=== PATIENT | male | born 1950 | race Caucasian/White ===

== ENCOUNTER 2021-06-11 15:09 | Inpatient (IN) | payer MEDICARE, OTHER, SELFPAY ==
[2021-06-11 15:10] VITALS: BP 142/79; PULSE 106; RESP 20; TEMP 36; O2SAT 97; BMI 59.5
[2021-06-11 15:21] VITALS: O2SAT 97
--- NOTE | 2021-06-11 15:24 | RAD_ITS ---
STUDY: X-RAY - RIGHT ELBOW REASON FOR EXAM: Male, 70 years old. trauma TECHNIQUE: 3 view(s) of the elbow. COMPARISON: None. FINDINGS: Irregularity of the posterior aspect of the olecranon of the ulna with small calcific opacities in the adjacent triceps tendon may represent an acute avulsion fracture or chronic tendinopathy. Normal radiocapitellar and ulnotrochlear articulations. The soft tissue structures are unremarkable. RAD/Elbow min 3 Views IMPRESSION: Suspected avulsion of the posterior olecranon at the insertion of triceps or chronic tendinopathy. Electronically Signed: Mir Choi MD at 16:29 EST ,
--- NOTE | 2021-06-11 15:24 | RAD_ITS ---
STUDY: X-RAY - RIGHT KNEE REASON FOR EXAM: Male, 70 years old. trauma TECHNIQUE: 2 view(s) of the knee. COMPARISON: None. FINDINGS: Normal visualized distal femur. Normal visualized proximal tibia and fibula. Normal proximal tibiofibular articulation. There is moderate degenerative arthrosis of the medial femorotibial compartment with moderate joint space narrowing. There is moderate degenerative arthrosis of the lateral femorotibial compartment with moderate joint space narrowing. There is moderate degenerative arthrosis of the patellofemoral articulation. The soft tissue structures are unremarkable. RAD/Knee 1 or 2 Views IMPRESSION: Degenerative arthrosis. Electronically Signed: Mir Choi MD at 16:28 EST ,
--- NOTE | 2021-06-11 15:28 | ED.VIS.FALL ---
HPI HPI - Fall History of Present Illness Chief Complaint: Fall Narrative Narrative: Patient presents after a mechanical fall, apparently this is his fifth fall this week. He was seen this morning at an outside emergency department after a fall this morning he fell again this afternoon. This morning he injured his elbow and apparently had a chest x-ray, he injured his knee and ankle today. He has no head injury no neck pain no loss of consciousness. Apparently he has been been more weak than normal and he has increased debility. [facility] Medical History Cellulitis DVT (deep venous thrombosis) HTN (hypertension) Obesity Home Medications furosemide 40 mg PO DAILY 06/11/21 [History Last Taken Unknown] latanoprost 1 drp EACH EYE QHS 06/11/21 [History Last Taken Unknown] potassium chloride 10 meq PO DAILY 06/11/21 [History Last Taken Unknown] warfarin 6 mg PO 06/11/21 [History Last Taken Unknown] Allergy/AdvReac Type Severity Reaction Status Date / Time No Known Allergies Allergy Verified 06/11/21 15:09 Social History Smoking Status: Never smoker ROS ROS ED ROS Narrative Past medical history: Reviewed, includes hypertension hypercholesterolemia and morbid obesity, as well as prior thromboembolic disease. Medications: Reviewed Social history: Noncontributory Review of systems: All systems negative except as indicated General: No fever. Generalized weakness as in HPI Eyes: No visual changes ENT: No upper airway congestion, normal voice Neck: No neck pain Cardiovascular: No chest pain Respiratory: No shortness of breath or cough Gastrointestinal: No abdominal pain, nausea vomiting or diarrhea Genitourinary: No dysuria Musculoskeletal: Right elbow right knee and right ankle pain, otherwise no other injury. Skin: No rash Neurological: No memory loss, confusion or any focal weakness Psych: No recent behavioral changes Hematologic: He is prone to easy bleeding secondary to his warfarin. EXAM Physical Exam Narrative Exam Narrative: Physical exam General: Patient appears uncomfortable. Does not appear acutely ill Head: Normocephalic, Atraumatic Eyes: Conjunctiva not pale ENT: Dry mucous membranes Neck: Supple, Nontender, No lymphadenopathy Cardiovascular: Regular rate, Regular rhythm, no murmur but the auscultation is difficult Respiratory: Coarse bilateral breath sounds Abdomen: Soft, Nontender, Back: Nontender, Normal Inspection. Negative for: CVA tenderness Extremities: Full range of motion of the right elbow knee and ankle with minimal pain. He has bilateral symmetric lower extremity edema. Skin: Normal color, No rash, chronic changes and scaling of the lower extremities secondary to chronic lymphedema, no evidence of infection Neurological: Alert, Normal Strength, Normal Sensation Psychological: Normal affect Const Vital Signs: 06/11/21 15:10 06/11/21 15:21 Temperature 96.8 F L Temperature Source Temporal Pulse Rate 106 H Respiratory Rate 20 H Respiratory Effort Short of Breath Labored Respiratory Depth Normal Respiratory Pattern Tachypnea Blood Pressure 142/79 H Blood Pressure Mean 100 Pulse Ox 97 97 Oxygen Delivery Method Room Air Room Air MDM MDM MDM Narrative Medical decision making narrative: Patient has an unremarkable work-up other than leukocytosis this morning his white count was 16 is 19, I will have a reason for this, I went back to reevaluate him I checked his groin, there is no evidence of scrotal or decub ulcers or any signs of infection, I rechecked his skin there is no cellulitis. Regardless at this time I did try to place him into a rehab facility but it is Monday evening and I could not he cannot go home due to his immobility. I will call for admission Lab Data Labs: Laboratory Results - last 24 hr 06/11/21 06/11/21 06/11/21 15:15 15:15 15:15 WBC 19.6 H RBC 5.37 Hgb 14.4 Hct 44.1 MCV 82.1 MCH 26.8 L MCHC 32.7 RDW Std Deviation 46.5 H RDW Coeff of Jory 15.6 H Plt Count 376 MPV 8.7 Immature Gran % (Auto) 1.200 H Neut % (Auto) 87.1 H Lymph % (Auto) 1.1 L [place] % (Auto) 6.4 Eos % (Auto) 4.0 Baso % (Auto) 0.2 Absolute Neuts (auto) 17.1 H Absolute Lymphs (auto) 0.21 L Nucleated RBC % 0 Differential Comment SEE COMMENT Platelet Estimate ADEQUATE Plt Morphology Comment LARGE RBC Morphology N CHROM Anisocytosis RARE PT 37.5 H INR 3.9 Sodium 131 L Potassium 4.0 Chloride 98 Carbon Dioxide 23.0 Anion Gap 10 BUN 40 H Creatinine 1.48 H Estim Creat Clear Calc 42.51 Est GFR (MDRD) Af Amer 61 Est GFR (MDRD) Non-Af 50 L BUN/Creatinine Ratio 27.0 H Glucose 129 H Calcium 10.4 H Total Bilirubin 1.10 H AST 62 H ALT 37 Alkaline Phosphatase 110 Total Creatine Kinase 729 H B-Natriuretic Peptide Total Protein 8.1 Albumin 2.3 L Globulin 5.8 H Albumin/Globulin Ratio 0.4 L Urine Color Urine Clarity Urine pH Ur Specific [place] Urine Protein Urine Glucose (UA) Urine Ketones Urine Occult Blood Urine Nitrite Urine Bilirubin Urine Urobilinogen Ur Leukocyte Esterase Urine RBC Urine WBC Ur Squamous Epith Cells Urine Bacteria Hyaline Casts Fine Granular Casts Urine Mucus 06/11/21 06/11/21 15:15 15:45 WBC RBC Hgb Hct MCV MCH MCHC RDW Std Deviation RDW Coeff of Jory Plt Count MPV Immature Gran % (Auto) Neut % (Auto) Lymph % (Auto) [place] % (Auto) Eos % (Auto) Baso % (Auto) Absolute Neuts (auto) Absolute Lymphs (auto) Nucleated RBC % Differential Comment Platelet Estimate Plt Morphology Comment RBC Morphology Anisocytosis PT INR Sodium Potassium Chloride Carbon Dioxide Anion Gap BUN Creatinine Estim Creat Clear Calc Est GFR (MDRD) Af Amer Est GFR (MDRD) Non-Af BUN/Creatinine Ratio Glucose Calcium Total Bilirubin AST ALT Alkaline Phosphatase Total Creatine Kinase B-Natriuretic Peptide 29.0 Total Protein Albumin Globulin Albumin/Globulin Ratio Urine Color Tania Urine Clarity Clear Urine pH 5.0 Ur Specific [place] 1.020 Urine Protein 30 H Urine Glucose (UA) Normal Urine Ketones 15 H Urine Occult Blood 150 H Urine Nitrite Negative Urine Bilirubin 1 H Urine Urobilinogen 4 H Ur Leukocyte Esterase 25 H Urine RBC 0 SEEN Urine WBC 0-5 SEEN Ur Squamous Epith Cells 0-5 SEEN Urine Bacteria 0 SEEN Hyaline Casts 0-5 SEEN Fine Granular Casts 0-5 SEEN Urine Mucus 0 SEEN Radiography Diagnostic Testing: Clinical Impression(s) from Imaging Studies Elbow X-Ray 06/11/21 15:24 IMPRESSION: Suspected avulsion of the posterior olecranon at the insertion of triceps or chronic tendinopathy. Electronically Signed: Mir Choi MD at 16:29 EST , Knee X-Ray 06/11/21 15:24 IMPRESSION: Degenerative arthrosis. Electronically Signed: Mir Choi MD at 16:28 EST , Ankle X-Ray 06/11/21 16:00 IMPRESSION: No acute fracture or dislocation. Electronically Signed: Mir Choi MD at 16:27 EST , Discharge Plan Triage Chief Complaint: Fall ED Provider: Armani Nelson Dx/Rx/DC Orders Clinical Impression: Fall, Debility Prescriptions: No Action warfarin 6 mg tablet 6 mg PO RF: 0 furosemide 40 mg tablet 40 mg PO DAILY RF: 0 latanoprost 0.005 % drops 1 drp EACH EYE QHS RF: 0 potassium chloride 10 mEq tablet extended release 10 meq PO DAILY RF: 0 Primary Care Provider: Maury Harley Referrals: Maury Harley DO [Primary Care Provider] - Disposition Disposition: Acute Care [facility]
[2021-06-11 15:33] LABS: Absolute Lymphocyte Count 0.21 X10^3/uL (0.83-4.51); Absolute Neutrophil Count 17.1 X10^3/uL (2.0-7.7); Basophil# 0.03 X10^3/uL; Basophil% 0.2 % (0-1); Eosinophil# 0.79 X10^3/uL; Hematocrit 44.1 % (40-54); Hemoglobin 14.4 g/dL (13.0-16.5); Lymphocyte # 0.21 X10^3/ul (0.83-4.51); Lymphocyte % 1.1 % (19-41); Mean Corp Hgb Conc 32.7 g/dL (32-36); Mean Corpuscular Hgb 26.8 pg (27.0-32.0); Mean Corpuscular Volume 82.1 fL (80-94); Mean Platelet Vol. 8.7 fl (6.2-12.0); Monocyte# 1.26 X10^3/uL; Monocyte% 6.4 % (0-10); NRBC Flagged by Analyzer 0 % (0-5); Neutrophil # 17.12 X10^3/uL (2.7-7.7); Neutrophil % 87.1 % (47-70); POSITIVE DIFFERENTIAL YES; POSITIVE MORPHOLOGY YES; Platelet Count 376 K/mm3 (150-450); RBC Distribution Width CV 15.6 % (11.6-14.6); RBC Distribution Width SD 46.5 fl (35.1-43.9); Red Blood Count 5.37 M/mm3 (4.6-6.2); White Blood Count 19.6 K/mm3 (4.4-11.0)
--- NOTE | 2021-06-11 16:00 | RAD_ITS ---
STUDY: X-RAY - RIGHT ANKLE REASON FOR EXAM: Male, 70 years old. trauma TECHNIQUE: 3 view(s) of the ankle. COMPARISON: None. FINDINGS: Normal visualized distal tibia and fibula. Chronic corticated avulsion fracture medial malleolus of the tibia. Normal tibiotalar articulation and ankle mortise. Normal visualized talus and calcaneus. Small posterior calcaneal enthesophyte. The visualized subtalar, talonavicular, calcaneocuboid and tarsal articulations are normal. The soft tissue structures are unremarkable. RAD/Ankle min 3 Views IMPRESSION: No acute fracture or dislocation. Electronically Signed: Mir Choi MD at 16:27 EST ,
[2021-06-11 16:03] LABS: Bacteria 0 SEEN /hpf (None Seen); Mucous, Urine 0 SEEN /hpf (<or=2+); Red Blood Cells-Urine 0 SEEN /hpf (0-5)
[2021-06-11 16:04] LABS: Differential Indicated SCAN CRITERIA MET
[2021-06-11 16:06] LABS: ALB/GLOB Ratio 0.4 RATIO (0.9-2.4); AST(SGOT) 62 U/L (15-37); Alanine Aminotransfer ALT/SGPT 37 U/L (16-61); Albumin, Serum 2.3 g/dL (3.2-5.0); Alkaline Phosphatase 110 U/L (45-117); Anion Gap 10 (5-15); BUN 40 mg/dL (7-18); CPK Total, Creatine Kinase 729 U/L (39-308); Calcium,Total 10.4 mg/dL (8.5-10.1); Chloride 98 mmol/L (98-107); Creatinine, Serum 1.48 mg/dL (0.70-1.30); EST Glomerular Filtration Rate 50 mL/min (>60); Est Glom Filt Rate - Afr Amer 61 mL/min (>60); Estimated Creatinine Clearance 42.51 ml/min; Globulin 5.8 g/dL (2.2-4.2); Glucose 129 mg/dL (74-106); International Normalized Ratio 3.9; Protein, Total 8.1 g/dL (6.4-8.2); Prothrombin Time (Protime)PT. 37.5 SECONDS (11.7-14.9); Sodium Level 131 mmol/L (136-145)
[2021-06-11 16:07] LABS: Anisocytosis RARE; Platelet Estimate ADEQUATE (ADEQ); Platelet Morphology LARGE; Red Cell Morphology N CHROM NORMAL (NORM C&C)
[2021-06-11] MEDS: 0.9% Normal Saline 1,000 ML 1000 ML IV (16:07)
--- NOTE | 2021-06-11 16:10 | CM.ED ---
Social Work Consult: snf placement Referral source: Dr. Nelson Met with patient and patient nieceAlison in room. Introduced self and clinical social worker role. Patient agreeable to this clinical social worker speaking openly with Alison present. Patient lives at home alone in [place]. Patient has been living on the first floor. Patient with stairs to enter the home with no handrails. Alison reports that patient has fallen 5 times in the past week and three times in the last 24 hours. Patient concerned about being able to take care of self as well. Patient believes that Alison is patient Health Care Power of Electrical Engineering Manager, but not sure about this. Patient was never and has no children per Alison. Patient is not wanting to return to home, I need to get myself taken care of. Nursing concerned of patient neglecting self. Alison reports that patient has not been bathing and the house is not in good shape. Patient agrees to need help and is agreeable to admission for possible [facility] placement as patient insurance requires a pre-cert. This clinical social worker provided patient with list of in-network facilities that are local to patient geographical region. Alison also assisting patient with choosing facility. This clinical social worker communicating that social work will continue to follow up with patient on placement options/plan. All parties voice understanding. Social Work to continue to follow. Marco A CHILD, RICKI
[2021-06-11 16:31] LABS: Color, Urine Amber (Yellow); Glucose, Dipstick Normal (Normal); Ketone-Dipstick 15 mg/dl (Negative); Leukocyte Esterase-Dipstick 25 /ul (Negative); Nitrite-Dipstick Negative (Negative); Occult Blood-Urine 150 /ul (Negative); Protein-Dipstick 30 mg/dl (Negative); Urine Bilirubin Dipstick 1 mg/dL (Negative); Urine Clarity Clear (Clear); Urine Urobilinogen 4 mg/dl (Normal)
[2021-06-11 16:41] LABS: Squamous Epithelial Cells - UA 0-5 SEEN /hpf (0-5); White Blood Cells 0-5 SEEN /hpf (0-5)
[2021-06-11 16:42] LABS: Hyaline Cast 0-5 SEEN /lpf (0-5)
[2021-06-11 16:43] LABS: Fine Granular Cast- Urine 0-5 SEEN /lpf (0-5)
[2021-06-11 17:00] VITALS: BP 151/64; PULSE 107; PULSE 108; RESP 28; TEMP 36; O2SAT 97
--- NOTE | 2021-06-11 17:30 | HP.PCM.HOS_ITS ---
HPI - General General Date of Admission: 06/11/21 Date of Service: 06/11/21 Chief Complaint: falls HPI Narrative MICHEAL LEÓN, is a 70 M who presents with falls. Patient has fallen 5 times over the past week. 1 time heparinize throwing some garbage over fence and lost his balance but has just been overall weaker and falling. Had fallen earlier today presented to outside emergency room and decided to go home. He returns again after another fall just unable to care for himself. Patient noted to have a white count of 19.6, INR of 3.9 and total creatinine kinase of 729. He did receive a liter of IV fluids in the emergency room. Patient has noted some seeping from his lower extremities and was diagnosed at the outside ER c ellulitis in his lower extremities. [facility] Medical History (Updated 06/11/21 @ 17:[address] Thang Basilio DO) 2019-nCoV vaccination declined Cellulitis DVT (deep venous thrombosis) HTN (hypertension) Obesity Home Medications furosemide 40 mg PO DAILY 06/11/21 [History Last Taken Unknown] latanoprost 1 drp EACH EYE QHS 06/11/21 [History Last Taken 06/09/21] potassium chloride 10 meq PO DAILY 06/11/21 [History Last Taken 06/09/21] warfarin 5 mg PO DAILY 06/11/21 [History Last Taken 06/10/21] Allergy/AdvReac Type Severity Reaction Status Date / Time No Known Allergies Allergy Verified 06/11/21 15:09 Social History Smoking Status: Never smoker ROS ROS Narrative Seeping and swelling in lower extremities. Has had a history of a DVT. All review of systems were negative except as mentioned above in the history of present illness and the other review of systems. Vital Signs Vital Signs Vital Signs: 06/11/21 15:10 06/11/21 15:21 06/11/21 17:00 Temperature 36.0 C L 36.0 C L Temperature Source Temporal Temporal Pulse Rate 106 H 108 H Respiratory Rate 20 H 28 H Respiratory Effort Short of Breath Labored Respiratory Depth Normal Respiratory Pattern Tachypnea Blood Pressure 142/79 H 151/64 H Blood Pressure Mean 100 93 Pulse Ox 97 97 97 Oxygen Delivery Method Room Air Room Air Room Air Weight Weight: 167.5 kg Body Mass Index (BMI) 59.5 Physical Exam Const alert Constitutional Narrative: Morbidly obese General Appearance: cooperative HEENT normocephalic and head/scalp atraumatic Neck no lymphadenopathy Neck Narrative: No thyromegaly Resp normal respiratory effort, no retractions, no use of accessory muscles and clear to auscultation bilaterally Cardio regular rate, regular rhythm, S1 normal heart sound and S2 normal heart sound GI normal to inspection, nondistended, normoactive bowel sounds, soft to palpation, non-tender and non-distended Extremity Extremity Narrative: Venous stasis changes to the lower extremities. Right lower extremity is larger than his left. Skin Skin Narrative: Venous stasis changes in lower extremities. Neuro Sensorium / Orientation: awake and alert Psych Psych Narrative: Flat affect Results Lab / Micro Data Attestation: I reviewed the patient's lab results. Result Diagrams: 06/11/21 15:15 06/11/21 15:15 Labs: Laboratory Results - last 24 hr 06/11/21 15:15: WBC 19.6 H, RBC 5.37, Hgb 14.4, Hct 44.1, MCV 82.1, MCH 26.8 L, MCHC 32.7, RDW Std Deviation 46.5 H, RDW Coeff of Jory 15.6 H, Plt Count 376, MPV 8.7, Immature Gran % (Auto) 1.200 H, Neut % (Auto) 87.1 H, Lymph % (Auto) 1.1 L, [place] % (Auto) 6.4, Eos % (Auto) 4.0, Baso % (Auto) 0.2, Absolute Neuts (auto) 17.1 H, Absolute Lymphs (auto) 0.21 L, Nucleated RBC % 0, Differential Comment SEE COMMENT, Platelet Estimate ADEQUATE, Plt Morphology Comment LARGE, RBC Morphology N CHROM, Anisocytosis RARE 06/11/21 15:15: PT 37.5 H, INR 3.9 06/11/21 15:15: Sodium 131 L, Potassium 4.0, Chloride 98, Carbon Dioxide 23.0, Anion Gap 10, BUN 40 H, Creatinine 1.48 H, Estim Creat Clear Calc 42.51, Est GFR (MDRD) Af Amer 61, Est GFR (MDRD) Non-Af 50 L, BUN/Creatinine Ratio 27.0 H, Glucose 129 H, Calcium 10.4 H, Total Bilirubin 1.10 H, AST 62 H, ALT 37, Alkaline Phosphatase 110, Total Creatine Kinase 729 H, Total Protein 8.1, Albumin 2.3 L, Globulin 5.8 H, Albumin/Globulin Ratio 0.4 L 06/11/21 15:15: B-Natriuretic Peptide 29.0 06/11/21 15:45: Urine Color Tania, Urine Clarity Clear, Urine pH 5.0, Ur Specific [place] 1.020, Urine Protein 30 H, Urine Glucose (UA) Normal, Urine Ketones 15 H, Urine Occult Blood 150 H, Urine Nitrite Negative, Urine Bilirubin 1 H, Urine Urobilinogen 4 H, Ur Leukocyte Esterase 25 H, Urine RBC 0 SEEN, Urine WBC 0-5 SEEN, Ur Squamous Epith Cells 0-5 SEEN, Urine Bacteria 0 SEEN, Hyaline Casts 0-5 SEEN, Fine Granular Casts 0-5 SEEN, Urine Mucus 0 SEEN Radiology Impression Elbow X-Ray 06/11/21 15:24 IMPRESSION: Suspected avulsion of the posterior olecranon at the insertion of triceps or chronic tendinopathy. Electronically Signed: Mir Choi MD at 16:29 EST Reading Location ID and State: [id number] Tel , Service support , Knee X-Ray 06/11/21 15:24 IMPRESSION: Degenerative arthrosis. Electronically Signed: Mir Choi MD at 16:28 EST Reading Location ID and State: [id number] Tel , Service support , Ankle X-Ray 06/11/21 16:00 IMPRESSION: No acute fracture or dislocation. Electronically Signed: Mir Choi MD at 16:27 EST Reading Location ID and State: [id number] / [facility] Tel , Service support , Assessment & Plan Assessment/Plan (1) Fall: QUALIFIERS: Encounter type: initial encounter Qualified Code(s): W19.XXXA - Unspecified fall, initial encounter (2) Leukocytosis: QUALIFIERS: Leukocytosis type: unspecified Qualified Code(s): D72.829 - Elevated white blood cell count, unspecified PLAN: 1. Fall/debility/failure to thrive No obvious etiology that I can appreciate medically at this time is contributing to this Therefore, patient will be brought under observation status and have physical and occupational therapy evaluate him. Discussed with he and his niece, who is at bedside. He is unsafe to be at home by himself which she reluctantly agrees to and plan to be for [facility] facility upon discharge. No if there is found to be medical reason for him to be hospitalized, such as an infection then his status could be potentially changed over to admission. 2. Leukocytosis Unclear significance he is not manifesting any signs or symptoms of infection at this time. He was informed that he had cellulitis at outside emergency room but I see any evidence of any cellulitis and would not treat him for such. He does have lower extremity edema with lymphedema changes but nothing indicative of cellulitis at this time. 3. Coagulopathy INR 3.9 Secondary to warfarin Hold warfarin for now 4. Lower extremity edema We will increase his furosemide from 40 mg once daily to twice daily PO Check a 2D echocardiogram. Concern the patient does have pulmonary hypertension due to potential untreated sleep apnea. Did recommend he get outpatient follow- up with pulmonology to get a polysomnogram. Though would be very concerned about compliance for this individual. 5. Morbid obesity BMI 60 Complicates overall care and recovery Dietitian to evaluate 6. History of DVT Currently anticoagulated but INR is too high to continue with warfarin for now 7. VTE prophylaxis: Not indicated as he is already anticoagulated 8. COVID-19 vaccination status: Patient states that he has not had Covid nor has he been vaccinated. When asked him about his COVID-19 vaccination status he given also subtle clue that he was done talking with that subject soon as I brought up. I did recommend given his morbid obesity and medical comorbidities that he get vaccinated. 9. CODE STATUS: Addressed with the patient. He wishes to be full CODE STATUS. Discussed with the patient's niece at bedside. Charges/Coding Visit Charges OBSV E&M: 22047 Initial observation care L3
[2021-06-11 17:45] VITALS: BMI 57.8
--- NOTE | 2021-06-11 18:20 | ECHOCS_ITS ---
Reason For Study: CHF Procedure This was a 2D Doppler, Color Flow transthoracic echocardiogram. Contrast injection was performed. The study was technically difficult. Exam performed portable in patient room. Left Ventricle Normal LV size. Left ventricular systolic function is hyperdynamic. The estimated ejection fraction is 65 %. Stage 1 diastolic dysfunction. No regional wall motion abnormalities noted. Right Ventricle Normal RV size. Normal systolic function. Atria Normal left atrium. Normal right atrium. Mitral Valve Mitral valve not well visualized. Tricuspid Valve The tricuspid valve is not well visualized. Aortic Valve The aortic valve is not well visualized. Great Vessels Normal aortic root. Pericardium/Pleural No pericardial effusion. Medication Diluted definity 3ml given slow IV push to enhance endocardial definition. MMode/2D Measurements & Calculations LVIDd: 4.5 cm IVSd: 1.6 cm Ao root diam: 3.7 cm LVIDs: 3.3 cm LVPWd: 1.3 cm RVDd: 3.4 cm FS: 26.5 % LAV(MOD-bp): 33.4 ml LA A4 area: 14.9 cm2 RA A4 area: 13.1 cm2 LAV(MOD-bp) Indexed: 12.7 ml/m2 LAV(MOD-sp2): 33.7 ml LAV(MOD-sp4): 33.6 ml Doppler Measurements & Calculations MV E max don: 54.4 cm/sec Lat Peak E' Don: 10.6 cm/sec Med Peak E' Don: 10.6 cm/sec MV A max don: 95.1 cm/sec E/E' lat: 5.1 E/E' med: 5.1 MV E/A: 0.57 Ao V2 max: 199.3 cm/sec LV V1 max: 149.8 cm/sec PA V2 max: 115.5 cm/sec Ao max P.9 mmHg LV V1 max P.0 mmHg Ao V2 mean: 149.2 cm/sec Ao mean P.6 mmHg Ao V2 VTI: 28.0 cm ECHO/Echo Complete W/ Contrast Interpretation Summary Normal LV size. Left ventricular systolic function is hyperdynamic. The estimated ejection fraction is 65 %. Stage 1 diastolic dysfunction. Contrast injection was performed. The study was technically limited. The study was technically difficult. Ordering Physician: Thang Basilio Referring Physician: Maury Harley Performed By: Bobbi Whatley, ARINCS, RVT
[2021-06-11 18:31] VITALS: BP 112/77; PULSE 110; RESP 18; TEMP 36.2; O2SAT 98
[2021-06-11] MEDS: Furosemide 40 MG Tablet PO (19:07)
[2021-06-11 19:50] LABS: Troponin-I HS 21 pg/mL (3.0-78.0)
[2021-06-11 21:19] VITALS: BP 120/62; PULSE 108; RESP 24; TEMP 37.3; O2SAT 95
[2021-06-11] MEDS: Latanoprost 0.005% 1 Bottle 1 DRP EACH EYE (21:51)
[2021-06-11] MEDS: 0.9% Saline Lock 10 ML Syringe IV (21:51)
[2021-06-12 04:45] VITALS: BP 115/73; PULSE 106; RESP 24; TEMP 36.6; O2SAT 95
[2021-06-12 05:33] LABS: Absolute Lymphocyte Count 0.29 X10^3/uL (0.83-4.51); Basophil# 0.01 X10^3/uL; Basophil% 0.1 % (0-1); Eosinophil# 0.01 X10^3/uL; Eosinophils% 0.1 % (0-5); Hematocrit 39.1 % (40-54); Hemoglobin 13.1 g/dL (13.0-16.5); Lymphocyte # 0.29 X10^3/ul (0.83-4.51); Lymphocyte % 1.9 % (19-41); Mean Corp Hgb Conc 33.5 g/dL (32-36); Mean Corpuscular Volume 80.5 fL (80-94); Mean Platelet Vol. 8.6 fl (6.2-12.0); Monocyte# 1.56 X10^3/uL; Monocyte% 10.4 % (0-10); NRBC Flagged by Analyzer 0 % (0-5); Neutrophil # 12.97 X10^3/uL (2.7-7.7); Neutrophil % 86.8 % (47-70); POSITIVE DIFFERENTIAL YES; Platelet Count 352 K/mm3 (150-450); RBC Distribution Width CV 15.6 % (11.6-14.6); RBC Distribution Width SD 45.1 fl (35.1-43.9); Red Blood Count 4.86 M/mm3 (4.6-6.2); White Blood Count 14.9 K/mm3 (4.4-11.0)
[2021-06-12 05:42] LABS: Differential Indicated SCAN CRITERIA MET
[2021-06-12 05:52] LABS: Prothrombin Time (Protime)PT. 43.7 SECONDS (11.7-14.9)
[2021-06-12 05:55] LABS: International Normalized Ratio 4.7
[2021-06-12 06:09] LABS: Thyroid Stim Hormone (TSH) 2.05 uIU/mL (0.358-3.74)
[2021-06-12 06:56] LABS: Differential Comment SCANNED
[2021-06-12] MEDS: 0.9% Saline Lock 10 ML Syringe IV ×2 (08:41→19:57)
[2021-06-12] MEDS: Potassium Chloride Oral Tablet 10 MEQ PO (08:44)
--- NOTE | 2021-06-12 09:24 | PCM.RX.CS ---
Consult Pharmacy has been consulted to manage selected antiobiotic: Vancomycin Type of Consult: New start Suspected Infection: Bacteremia Labs: Sodium 131 mmol/L (136-145) L 06/11/21 15:15 Potassium 4.0 mmol/L (3.5-5.1) 06/11/21 15:15 Chloride 98 mmol/L (98-107) 06/11/21 15:15 Carbon Dioxide 23.0 mmol/L (21.0-32.0) 06/11/21 15:15 Anion Gap 10 (5-15) 06/11/21 15:15 BUN 40 mg/dL (7-18) H 06/11/21 15:15 Creatinine 1.48 mg/dL (0.70-1.30) H 06/11/21 15:15 Est GFR (MDRD) Af Amer 61 mL/min (>60) 06/11/21 15:15 Est GFR (MDRD) Non-Af 50 mL/min (>60) L 06/11/21 15:15 BUN/Creatinine Ratio 27.0 RATIO (10-20) H 06/11/21 15:15 Glucose 129 mg/dL (74-106) H 06/11/21 15:15 Microbiology: Microbiology 06/11/21 16:54 Blood Culture (Wb) - Anticubital Right Blood Culture - Preliminary 06/11/21 16:50 Blood Culture (Wb) - Anticubital Left Blood Culture - Preliminary Goal Trough: 15-20 mcg/mL Pharmacy Plan for Drug Dosing: NEW START IV VANCOMYCIN Consulting Physician: Dr. Basilio Indication: Bacteremia Goal Trough: 15-20 SrCr: 1.48 CrCl: 69 mL/min (using AdjBW of 103.4kg) Comments: Loading dose 2g IV x1 ordered and administered 06/12/21 @0841 Vancomcyin Dose: 1500mg IV Q12hr to start 06/12/21 @ 2000 Pending Level: 06/13/21 @1930, prior to 4th total dose per protocol Pharmacy Service will continue to monitor and adjust dosing as required.
[2021-06-12 09:26] VITALS: BP 118/77; PULSE 103; RESP 18; TEMP 37.5; O2SAT 95
[2021-06-12] MEDS: Nystatin Powder 15gm Bottle 1 APPLIC TOPICAL ×2 (09:38→20:03)
[2021-06-12] MEDS: Furosemide 40 MG Tablet PO ×2 (09:38→18:23)
--- NOTE | 2021-06-12 11:51 | PN.HOSP_ITS ---
Subjective Subjective No new events overnight. Objective Data Objective Data Vital Signs: Vital Signs Temp Pulse Resp BP Pulse Ox 37.5 C H 103 H 18 118/77 95 06/12/21 09:26 06/12/21 09:26 06/12/21 09:26 06/12/21 09:26 06/12/21 09:26 Oxygen Delivery Method Room Air Weight: 162.7 kg Body Mass Index (BMI) 57.8 Intake & Output: Intake and Output for Last 24 Hours 06/10/21 06/11/21 06/12/21 23:59 23:59 23:59 Intake Total 1000 / 1000 300 / 300 Output Total 325 / 325 Balance 675 / 675 300 / 300 Lab / Micro Data Result Diagrams: 06/12/21 05:04 06/11/21 15:15 Labs: Laboratory Results - last 24 hr 06/11/21 15:15: WBC 19.6 H, RBC 5.37, Hgb 14.4, Hct 44.1, MCV 82.1, MCH 26.8 L, MCHC 32.7, RDW Std Deviation 46.5 H, RDW Coeff of Jory 15.6 H, Plt Count 376, MPV 8.7, Immature Gran % (Auto) 1.200 H, Neut % (Auto) 87.1 H, Lymph % (Auto) 1.1 L, [place] % (Auto) 6.4, Eos % (Auto) 4.0, Baso % (Auto) 0.2, Absolute Neuts (auto) 17.1 H, Absolute Lymphs (auto) 0.21 L, Nucleated RBC % 0, Differential Comment SEE COMMENT, Platelet Estimate ADEQUATE, Plt Morphology Comment LARGE, RBC Morphology N CHROM, Anisocytosis RARE 06/11/21 15:15: PT 37.5 H, INR 3.9 06/11/21 15:15: Sodium 131 L, Potassium 4.0, Chloride 98, Carbon Dioxide 23.0, Anion Gap 10, BUN 40 H, Creatinine 1.48 H, Estim Creat Clear Calc 42.51, Est GFR (MDRD) Af Amer 61, Est GFR (MDRD) Non-Af 50 L, BUN/Creatinine Ratio 27.0 H, Glucose 129 H, Calcium 10.4 H, Total Bilirubin 1.10 H, AST 62 H, ALT 37, Al kaline Phosphatase 110, Total Creatine Kinase 729 H, Total Protein 8.1, Albumin 2.3 L, Globulin 5.8 H, Albumin/Globulin Ratio 0.4 L 06/11/21 15:15: B-Natriuretic Peptide 29.0 06/11/21 15:15: Troponin I High Sens 21 06/11/21 15:45: Urine Color Tania, Urine Clarity Clear, Urine pH 5.0, Ur Specific [place] 1.020, Urine Protein 30 H, Urine Glucose (UA) Normal, Urine Ketones 15 H, Urine Occult Blood 150 H, Urine Nitrite Negative, Urine Bilirubin 1 H, Urine Urobilinogen 4 H, Ur Leukocyte Esterase 25 H, Urine RBC 0 SEEN, Urine WBC 0-5 SEEN, Ur Squamous Epith Cells 0-5 SEEN, Urine Bacteria 0 SEEN, Hyaline Casts 0-5 SEEN, Fine Granular Casts 0-5 SEEN, Urine Mucus 0 SEEN 06/12/21 05:04: WBC 14.9 H, RBC 4.86, Hgb 13.1, Hct 39.1 L, MCV 80.5, MCH 27.0, MCHC 33.5, RDW Std Deviation 45.1 H, RDW Coeff of Jory 15.6 H, Plt Count 352, MPV 8.6, Immature Gran % (Auto) 0.700, Neut % (Auto) 86.8 H, Lymph % (Auto) 1.9 L, [place] % (Auto) 10.4 H, Eos % (Auto) 0.1, Baso % (Auto) 0.1, Absolute Neuts (auto) 13.0 H, Absolute Lymphs (auto) 0.29 L, Nucleated RBC % 0, Differential Comment S CANNED, Diff Path Review August06/12/21 05:04: PT 43.7 H, INR 4.7 H* 06/12/21 05:04: TSH 2.05 Micro: Microbiology 06/11/21 16:50 Blood Culture (Wb) - Anticubital Left Bacteria Detection (PCR) - Final Staphylococcus aureus 06/11/21 16:50 Blood Culture (Wb) - Anticubital Left Blood Culture - Preliminary 06/11/21 16:54 Blood Culture (Wb) - Anticubital Right Blood Culture - Preliminary Radiography Diagnostic Testing: Radiology Impression Elbow X-Ray 06/11/21 15:24 IMPRESSION: Suspected avulsion of the posterior olecranon at the insertion of triceps or chronic tendinopathy. Electronically Signed: Mir Choi MD at 16:29 EST Reading Location ID and State: [id number] / [employer] Tel , Service support , Knee X-Ray 06/11/21 15:24 IMPRESSION: Degenerative arthrosis. Electronically Signed: Mir Choi MD at 16:28 EST Reading Location ID and State: [id number] / [employer] Tel , Service support , Ankle X-Ray 06/11/21 16:00 IMPRESSION: No acute fracture or dislocation. Electronically Signed: Mir Choi MD at 16:27 EST Reading Location ID and State: [id number] / [employer] Tel , Service support , Physical Exam Const alert and no apparent distress Resp normal respiratory effort, no retractions, no use of accessory muscles and clear to auscultation bilaterally Cardio regular rate, regular rhythm, S1 normal heart sound and S2 normal heart sound GI normal to inspection, nondistended, normoactive bowel sounds, soft to palpation, non-tender and non-distended Extremity Extremity Narrative: lymphedema changes in LE. increased area of induration on posterior right calf. Neuro Sensorium / Orientation: awake and alert Assessment & Plan Assessment/Plan (1) Fall: QUALIFIERS: Encounter type: initial encounter Qualified Code(s): W19.XXXA - Unspecified fall, initial encounter (2) Leukocytosis: QUALIFIERS: Leukocytosis type: unspecified Qualified Code(s): D 72.829 - Elevated white blood cell count, unspecified (3) Bacteremia: PLAN: 1. Bacteremia S. aureus start vancomycin repeat BCx consider TTE if persists may be related with possible cellulitis of LE. 2. Fall/debility/failure to thrive No obvious etiology that I can appreciate medically at this time is contributing to this Therefore, patient will be brought under observation status and have physical and occupational therapy evaluate him. Discussed with he and his niece, who is at bedside. He is unsafe to be at home by himself which she reluctantly agrees to and plan to be for [facility]dc facility upon discharge. No if there is found to be medical reason for him to be hospitalized, such as an infection then his status could be potentially changed over to admission. 3. Leukocytosis Unclear significance he is not manifesting any signs or symptoms of infection at this time. He was informed that he had cellulitis at outside emergency room but I see any evidence of any cellulitis and would not treat him for such. He does have lower extremity edema with lymphedema changes but nothing indicative of cellulitis at this time. 4. Coagulopathy INR 4.7 Secondary to warfarin Hold warfarin for now 5. Lower extremity edema We will increase his furosemide from 40 mg once daily to twice daily PO Check a 2D echocardiogram. Concern the patient does have pulmonary hypertension due to potential untreated sleep apnea. Did recommend he get outpatient follow- up with pulmonology to get a polysomnogram. Though would be very concerned about compliance for this individual. 6. Morbid obesity BMI 60 Complicates overall care and recovery Dietitian to evaluate 7. History of DVT Currently anticoagulated but INR is too high to continue with warfarin for now 8. VTE prophylaxis: Not indicated as he is already anticoagulated 9. COVID-19 vaccination status: Patient states that he has not had Covid nor has he been vaccinated. When asked him about his COVID-19 vaccination status he given also subtle clue that he was done talking with that subject soon as I brought up. I did recommend given his morbid obesity and medical comorbidities that he get vaccinated. 10. CODE STATUS: Addressed with the patient. He wishes to be full CODE STATUS. Charges/Coding Visit Charges Inpatient E&M: 78059 Subs Hosp L2
[2021-06-12 15:04] VITALS: BP 126/77; PULSE 101; RESP 18; TEMP 37.3; O2SAT 94
[2021-06-12] MEDS: Latanoprost 0.005% 1 Bottle 1 DRP EACH EYE (20:04)
[2021-06-12 20:06] VITALS: BP 100/72; PULSE 110; RESP 20; TEMP 37.1; O2SAT 94
[2021-06-13 03:24] VITALS: BP 126/75; PULSE 102; RESP 24; TEMP 37.6; O2SAT 94
[2021-06-13] MEDS: 0.9% Saline Lock 10 ML Syringe IV ×3 (03:40→19:41)
[2021-06-13 05:58] LABS: Absolute Lymphocyte Count 0.45 X10^3/uL (0.83-4.51); Absolute Neutrophil Count 12.2 X10^3/uL (2.0-7.7); Basophil# 0.02 X10^3/uL; Basophil% 0.1 % (0-1); Eosinophil# 0.01 X10^3/uL; Eosinophils% 0.1 % (0-5); Hematocrit 38.7 % (40-54); Hemoglobin 12.7 g/dL (13.0-16.5); Lymphocyte # 0.45 X10^3/ul (0.83-4.51); Lymphocyte % 3.1 % (19-41); Mean Corp Hgb Conc 32.8 g/dL (32-36); Mean Corpuscular Hgb 26.7 pg (27.0-32.0); Mean Corpuscular Volume 81.3 fL (80-94); Monocyte# 1.72 X10^3/uL; Monocyte% 11.8 % (0-10); NRBC Flagged by Analyzer 0 % (0-5); Neutrophil # 12.16 X10^3/uL (2.7-7.7); Neutrophil % 83.7 % (47-70); POSITIVE DIFFERENTIAL YES; Platelet Count 351 K/mm3 (150-450); RBC Distribution Width CV 15.9 % (11.6-14.6); RBC Distribution Width SD 47.4 fl (35.1-43.9); Red Blood Count 4.76 M/mm3 (4.6-6.2); White Blood Count 14.5 K/mm3 (4.4-11.0)
[2021-06-13 06:00] LABS: Differential Indicated SCAN CRITERIA MET
[2021-06-13 06:06] LABS: International Normalized Ratio 3.3; Prothrombin Time (Protime)PT. 32.5 SECONDS (11.7-14.9)
[2021-06-13 06:22] LABS: Anion Gap 6 (5-15); BUN 33 mg/dL (7-18); BUN/Creat Ratio 28.4 RATIO (10-20); Calcium,Total 9.9 mg/dL (8.5-10.1); Chloride 104 mmol/L (98-107); Creatinine, Serum 1.16 mg/dL (0.70-1.30); EST Glomerular Filtration Rate 66 mL/min (>60); Est Glom Filt Rate - Afr Amer 80 mL/min (>60); Estimated Creatinine Clearance 54.24 ml/min; Glucose 168 mg/dL (74-106); Potassium 3.9 mmol/L (3.5-5.1); Sodium Level 136 mmol/L (136-145)
[2021-06-13 07:30] VITALS: BP 129/80; PULSE 110; RESP 18; TEMP 37.3; O2SAT 93
[2021-06-13] MEDS: Potassium Chloride Oral Tablet 10 MEQ PO (07:47)
[2021-06-13] MEDS: Nystatin Powder 15gm Bottle 1 APPLIC TOPICAL ×2 (07:47→19:39)
--- NOTE | 2021-06-13 09:39 | PN.HOSP_ITS ---
Subjective Subjective Feeling ok. Objective Data Objective Data Vital Signs: Vital Signs Temp Pulse Resp BP Pulse Ox 37.3 C 110 H 18 129/80 H 93 06/13/21 07:30 06/13/21 07:30 06/13/21 07:30 06/13/21 07:30 06/13/21 07:30 Oxygen Delivery Method Room Air Weight: 162.5 kg Body Mass Index (BMI) 57.8 Intake & Output: Intake and Output for Last 24 Hours 06/11/21 06/12/21 06/13/21 23:59 23:59 23:59 Intake Total 1000 / 1000 1370 / 1370 Output Total 325 / 325 625 / 625 Balance 675 / 675 1370 / 1070 -625 / -625 Lab / Micro Data Result Diagrams: 06/13/21 05:15 06/13/21 05:15 Labs: Laboratory Results - last 24 hr 06/13/21 05:15: WBC 14.5 H, RBC 4.76, Hgb 12.7 L, Hct 38.7 L, MCV 81.3, MCH 26.7 L, MCHC 32.8, RDW Std Deviation 47.4 H, RDW Coeff of Jory 15.9 H, Plt Count 351, MPV 9.0, Immature Gran % (Auto) 1.200 H, Neut % (Auto) 83.7 H, Lymph % (Auto) 3.1 L, [place] % (Auto) 11.8 H, Eos % (Auto) 0.1, Baso % (Auto) 0.1, Absolute Neuts (auto) 12.2 H, Absolute Lymphs (auto) 0.45 L, Nucleated RBC % 0, Diff Path Review August06/13/21 05:15: PT 32.5 H, INR 3.3 06/13/21 05:15: Sodium 136, Potassium 3.9, Chloride 104, Carbon Dioxide 26.0, Anion Gap 6, BUN 33 H, Creatinine 1.16, Estim Creat Clear Calc 54.24, Est GFR (MDRD) Af Amer 80, Est GFR (MDRD) Non-Af 66, BUN/Creatinine Ratio 28.4 H, Glucose 168 H, Calcium 9.9 Micro: Microbiology 06/11/21 16:54 Blood Culture (Wb) - Anticubital Right Blood Culture - Preliminary Staphylococcus aureus 06/11/21 16:50 Blood Culture (Wb) - Anticubital Left Bacteria Detection (PCR) - Final Staphylococcus aureus 06/11/21 16:50 Blood Culture (Wb) - Anticubital Left Blood Culture - Preliminary Staphylococcus aureus 06/12/21 07:47 Blood Culture (Wb) - Left Hand Blood Culture - Preliminary 06/12/21 07:47 Blood Culture (Wb) - Right Hand Bacteria Detection (PCR) - Final Staphylococcus aureus 06/12/21 07:47 Blood Culture (Wb) - Right Hand Blood Culture - Preliminary Radiography Diagnostic Testing: Radiology Impression Echocardiogram 06/11/21 18:20 Interpretation Summary Normal LV size. Left ventricular systolic function is hyperdynamic. The estimated ejection fraction is 65 %. Stage 1 diastolic dysfunction. Contrast injection was performed. The study was technically limited. The study was technically difficult. Ordering Physician: Thang Basilio Referring Physician: Maury Harley Performed By: Bobbi Whatley, SHANNON, RVT Physical Exam Const alert and no apparent distress Resp normal respiratory effort, no retractions, no use of accessory muscles and clear to auscultation bilaterally Cardio regular rate, regular rhythm, S1 normal heart sound and S2 normal heart sound GI normal to inspection, nondistended, normoactive bowel sounds, soft to palpation, non-tender and non-distended Extremity normal to inspection Skin Skin Narrative: erythema on posterior right leg. Neuro Sensorium / Orientation: awake and alert Assessment & Plan Assessment/Plan (1) Fall: QUALIFIERS: Encounter type: initial encounter Qualified Code(s): W19.XXXA - Unspecified fall, initial encounter (2) Leukocytosis: QUALIFIERS: Leukocytosis type: unspecified Qualified Code(s): D72.829 - Elevated white blood cell count, unspecified (3) Bacteremia: PLAN: 1. Bacteremia S. aureus start vancomycin repeat BCx consider TTE if persists may be related with possible cellulitis of LE. 2. Fall/debility/failure to thrive No obvious etiology that I can appreciate medically at this time is contributing to this Therefore, patient will be brought under observation status and have physical and occupational therapy evaluate him. Discussed with he and his niece, who is at bedside. He is unsafe to be at home by himself which she reluctantly agrees to and plan to be for care home facility upon discharge. No if there is found to be medical reason for him to be hospitalized, such as an infection then his status could be potentially changed over to admission. 3. Leukocytosis Unclear significance he is not manifesting any signs or symptoms of infection at this time. He was informed that he had cellulitis at outside emergency room but I see any evidence of any cellulitis and would not treat him for such. He does have lower extremity edema with lymphedema changes but nothing indicative of cellulitis at this time. 4. Coagulopathy INR 4.7 Secondary to warfarin Hold warfarin for now 5. Lower extremity edema We will increase his furosemide from 40 mg once daily to twice daily PO Check a 2D echocardiogram. Concern the patient does have pulmonary hypertension due to potential untreated sleep apnea. Did recommend he get outpatient follow- up with pulmonology to get a polysomnogram. Though would be very concerned about compliance for this individual. 6. Morbid obesity BMI 60 Complicates overall care and recovery Dietitian to evaluate 7. History of DVT Currently anticoagulated but INR is too high to continue with warfarin for now 8. VTE prophylaxis: Not indicated as he is already anticoagulated 9. COVID-19 vaccination status: Patient states that he has not had Covid nor has he been vaccinated. When asked him about his COVID-19 vaccination status he given also subtle clue that he was done talking with that subject soon as I brought up. I did recommend given his morbid obesity and medical comorbidities that he get vaccinated. 10. CODE STATUS: Addressed with the patient. He wishes to be full CODE STATUS. Charges/Coding Visit Charges Inpatient E&M: 05245 Subs Hosp L2
[2021-06-13] MEDS: Furosemide 40 MG Tablet PO ×2 (09:53→17:46)
[2021-06-13 14:07] VITALS: BP 117/73; PULSE 107; RESP 18; TEMP 37.4; O2SAT 94
[2021-06-13] MEDS: Latanoprost 0.005% 1 Bottle 1 DRP EACH EYE (19:41)
[2021-06-13 19:47] VITALS: O2SAT 88
[2021-06-13 20:05] LABS: Vancomycin, Trough Level 13.7 ug/mL (5.0-15.0)
[2021-06-13 20:10] VITALS: BP 122/79; PULSE 106; RESP 20; TEMP 37.3; O2SAT 94
--- NOTE | 2021-06-13 21:18 | PCM.RX.CS ---
Consult Pharmacy has been consulted to manage selected antiobiotic: Vancomycin Type of Consult: Follow-up Suspected Infection: Bacteremia Prior Doses of Antibiotics Received/Current Regimen: Medications Vancomycin HCl 2,000 mg/ (Sodium Chloride) 540 mls @ 250 mls/hr IV Q12H JUSTINE Vancomycin HCl 1,500 mg/ (Sodium Chloride) 530 mls @ 250 mls/hr IV Q12H JUSTINE Stop: 06/13/21 22:30 Last Admin: 06/13/21 19:38 Dose: 250 mls/hr Labs: Sodium 136 mmol/L (136-145) 06/13/21 05:15 Potassium 3.9 mmol/L (3.5-5.1) 06/13/21 05:15 Chloride 104 mmol/L (98-107) 06/13/21 05:15 Carbon Dioxide 26.0 mmol/L (21.0-32.0) 06/13/21 05:15 Anion Gap 6 (5-15) 06/13/21 05:15 BUN 33 mg/dL (7-18) H 06/13/21 05:15 Creatinine 1.16 mg/dL (0.70-1.30) 06/13/21 05:15 Est GFR (MDRD) Af Amer 80 mL/min (>60) 06/13/21 05:15 Est GFR (MDRD) Non-Af 66 mL/min (>60) 06/13/21 05:15 BUN/Creatinine Ratio 28.4 RATIO (10-20) H 06/13/21 05:15 Glucose 168 mg/dL (74-106) H 06/13/21 05:15 Vancomycin Trough 13.7 ug/mL (5.0-15.0) 06/13/21 19:20 Microbiology: Microbiology 06/12/21 07:47 Blood Culture (Wb) - Left Hand Blood Culture - Preliminary Staphylococcus aureus 06/12/21 07:47 Blood Culture (Wb) - Right Hand Bacteria Detection (PCR) - Final Staphylococcus aureus 06/12/21 07:47 Blood Culture (Wb) - Right Hand Blood Culture - Preliminary Staphylococcus aureus 06/11/21 16:54 Blood Culture (Wb) - Anticubital Right Blood Culture - Preliminary Staphylococcus aureus 06/11/21 16:50 Blood Culture (Wb) - Anticubital Left Bacteria Detection (PCR) - Final Staphylococcus aureus 06/11/21 16:50 Blood Culture (Wb) - Anticubital Left Blood Culture - Preliminary Staphylococcus aureus Weight used for dosin.5 kg Estimated Creatinine Clearance: 88 Goal Trough: 15-20 mcg/mL Pharmacy Plan for Drug Dosing: Vancomycin trough level of 13.7 was slightly below the target of 15-20. Per aminoglycoside dosing calculator, a new dose of 2000mg q12h should give an estimated trough of 18.3. Will initiate the new dose and re-draw a trough prior to 4th dose of new regimen. Pharmacy Service will continue to monitor and adjust dosing as required. Follow-Up Labs: Trough Vancomycin Labs to be done on [date and time ordered]: 06/15/21 @3752
[2021-06-14] VITALS (22 sets, daily range): BP systolic 108–156; BP diastolic 66–95; PULSE 92–106; RESP 20–34; TEMP 36.6–37.9; O2SAT 93–97
[2021-06-14 06:29] LABS: Absolute Lymphocyte Count 0.45 X10^3/uL (0.83-4.51); Basophil# 0.03 X10^3/uL; Basophil% 0.2 % (0-1); Eosinophil# 0.01 X10^3/uL; Eosinophils% 0.1 % (0-5); Hematocrit 38.2 % (40-54); Hemoglobin 12.2 g/dL (13.0-16.5); Lymphocyte # 0.45 X10^3/ul (0.83-4.51); Lymphocyte % 2.5 % (19-41); Mean Corp Hgb Conc 31.9 g/dL (32-36); Mean Corpuscular Hgb 26.2 pg (27.0-32.0); Mean Platelet Vol. 8.7 fl (6.2-12.0); Monocyte# 2.04 X10^3/uL; Monocyte% 11.5 % (0-10); NRBC Flagged by Analyzer 0.1 % (0-5); Neutrophil # 14.97 X10^3/uL (2.7-7.7); POSITIVE DIFFERENTIAL YES; Platelet Count 339 K/mm3 (150-450); RBC Distribution Width CV 16.1 % (11.6-14.6); RBC Distribution Width SD 48.1 fl (35.1-43.9); Red Blood Count 4.66 M/mm3 (4.6-6.2); White Blood Count 17.8 K/mm3 (4.4-11.0)
[2021-06-14 06:31] LABS: Differential Indicated SCAN CRITERIA MET
[2021-06-14 06:38] LABS: International Normalized Ratio 2.8; Prothrombin Time (Protime)PT. 28.3 SECONDS (11.7-14.9)
[2021-06-14 06:49] LABS: Anion Gap 4 (5-15); Anisocytosis 1+; BUN 32 mg/dL (7-18); BUN/Creat Ratio 29.6 RATIO (10-20); Chloride 103 mmol/L (98-107); Creatinine, Serum 1.08 mg/dL (0.70-1.30); EST Glomerular Filtration Rate 72 mL/min (>60); Est Glom Filt Rate - Afr Amer 87 mL/min (>60); Estimated Creatinine Clearance 58.25 ml/min; Glucose 177 mg/dL (74-106); Potassium 4.5 mmol/L (3.5-5.1); Sodium Level 134 mmol/L (136-145)
[2021-06-14] MEDS: Furosemide 40 MG Tablet PO (07:46)
[2021-06-14] MEDS: Potassium Chloride Oral Tablet 10 MEQ PO (07:46)
[2021-06-14] MEDS: Nystatin Powder 15gm Bottle 1 APPLIC TOPICAL ×2 (07:46→21:35)
--- NOTE | 2021-06-14 08:18 | PN.HOSP_ITS ---
Subjective Subjective T-max 100.3 Fahrenheit at 2:10 AM. Short of breath, tachypneic on 2 L of oxygen.Patient is spiking fever. Called by nurse that patient is very short of breath Objective Data Objective Data Vital Signs: Vital Signs Temp Pulse Resp BP Pulse Ox 99.4 F H 106 H 28 H 132/76 H 94 06/14/21 07:39 06/14/21 07:39 06/14/21 07:39 06/14/21 07:39 06/14/21 07:39 Oxygen Flow Rate (L/min) 2 Oxygen Delivery Method Nasal Cannula Weight: 364 lb 3.258 oz Body Mass Index (BMI) 57.8 Intake & Output: Intake and Output for Last 24 Hours 06/12/21 06/13/21 06/14/21 23:59 23:59 23:59 Intake Total 1370 / 1370 1060 / 1060 Output Total 1025 / 1025 400 / 400 Balance 1370 / 1070 35 / 35 -400 / -400 Lab / Micro Data Result Diagrams: 06/14/21 06:16 06/14/21 06:16 Labs: Laboratory Results - last 24 hr 06/13/21 19:20: Vancomycin Trough 13.7 06/14/21 06:16: PT 28.3 H, INR 2.8 06/14/21 06:16: WBC 17.8 H, RBC 4.66, Hgb 12.2 L, Hct 38.2 L, MCV 82.0, MCH 26.2 L, MCHC 31.9 L, RDW Std Deviation 48.1 H, RDW Coeff of Jory 16.1 H, Plt Count 339, MPV 8.7, Immature Gran % (Auto) 1.700 H, Neut % (Auto) 84.0 H, Lymph % (Auto) 2.5 L, [place] % (Auto) 11.5 H, Eos % (Auto) 0.1, Baso % (Auto) 0.2, Absolu te Neuts (auto) 15.0 H, Absolute Lymphs (auto) 0.45 L, Nucleated RBC % 0.1, Diff Path Review May foll, Anisocytosis 1+ 06/14/21 06:16: Sodium 134 L, Potassium 4.5, Chloride 103, Carbon Dioxide 27.0, Anion Gap 4 L, BUN 32 H, Creatinine 1.08, Estim Creat Clear Calc 58.25, Est GFR (MDRD) Af Amer 87, Est GFR (MDRD) Non-Af 72, BUN/Creatinine Ratio 29.6 H, Glucose 177 H, Calcium 10.0 Micro: Microbiology 06/12/21 07:47 Blood Culture (Wb) - Right Hand Bacteria Detection (PCR) - Final Staphylococcus aureus 06/12/21 07:47 Blood Culture (Wb) - Right Hand Blood Culture - Final Staphylococcus aureus 06/11/21 16:54 Blood Culture (Wb) - Anticubital Right Blood Culture - Final Staphylococcus aureus 06/11/21 16:50 Blood Culture (Wb) - Anticubital Left Bacteria Detection (PCR) - Final Staphylococcus aureus 06/11/21 16:50 Blood Culture (Wb) - Anticubital Left Blood Culture - Final Staphylococcus aureus 06/13/21 08:24 Blood Culture (Wb) - Left Hand Blood Culture - Preliminary 06/13/21 08:08 Blood Culture (Wb) - Left Hand Blood Culture - Preliminary 06/12/21 07:47 Blood Culture (Wb) - Left Hand Blood Culture - Preliminary Staphylococcus aureus Physical Exam Narrative General: Alert, Oriented x3, Cooperative, morbid obese BMI 58.8 kg/min risk HEENT: Atraumatic, PERRLA, EOMI, Normocephalic Oral: No Gingival or Mucosal Lesions/ Ulcerations Neck: Supple, No JVD, Negative Carotid Bruits Lungs: Air entry diminished in bilateral lung bases. Tachypneic, hypoxia on 2 L of oxygen. Bilateral crepitations and wheezing present. Cardiovascular: Sinus rhythm, Normal S1, Normal S2, No murmurs Abdomen: Bowel Sounds Present, Soft, Non Tender, Non-Distended : No renal angle tenderness. No suprapubic tenderness. Extremities: Bilateral lower extremity pitting and nonpitting edema, Capillary Refill Less than 3 Seconds Skin: Bilateral lymphedema, chronic Musculoskeletal: No Tenderness to Palpation of Joints or Extremities Neurological: Cranial nerves II-XII grossly intact, DTR 2+/4 and Symmetrical, Neuro grossly intact Psych/Mental Status: Normal Affect, Appropriate. Assessment & Plan Assessment/Plan (1) Fall: QUALIFIERS: Encounter type: initial encounter Qualified Code(s): W19.XXXA - Unspecified fall, initial encounter (2) Leukocytosis: QUALIFIERS: Leukocytosis type: unspecified Qualified Code(s): D72.829 - Elevated white blood cell count, unspecified (3) Bacteremia: PLAN: 1. MSSA bacteremia: Blood cultures x2 on 06/11 shows MSSA. Repeat blood culture on 06/12, 06/13 also growing gram-positive cocci. ID is consulted. Suspicion of splinter hemorrhage. ID narrowed antibiotic to cefazolin. I think echo was ordered for heart failure but I do not see mention of vegetation. Discussed with the research and development technician and because of body habitus could not see the valves is working well. ID recommended SHLOMO. Repeat blood culture ordered today. Patient is unvaccinated for Covid. 2. Acute on chronic HFpEF with lower extremity edema: TTE is done shows EF 65%, hyperdynamic LV systolic function, stage I diastolic function. BNP normal but it may falsely normal because of morbid obesity. Lasix changed to IV 20 mg twice daily. Patient has crepitations in the morning. Individually reviewed the chest x-ray film and shows currently B-lines and interstitial edema although reported left lung base during electrolysis. 2D echo EF 65% with a stage I diastolic dysfunction. Tricuspid valve not well visualized therefore unable to get RVSP. Patient might have undiagnosed sleep apnea recommended veterinary technology instructor follow-up to get outpatient polysomnogram. Fall/debility/failure to thrive: Patient had remote left shoulder replacement. Patient had recurrent fall for past 1 week. Patient also has degenerative a rthritis, poor mobility, balance with bilateral lower leg edema and redness, right worse than left. Shoulder x-ray ordered and done individually reviewed and shows left prosthetic humerus head. Official report pending. . 3. Leukocytosis with neutrophilia and lymphopenia. Mild anemia of chronic disease, normocytic normochromic anemia: Most likely infectious in origin due to MSSA bacteremia. 4. Coagulopathy due to warfarin INR 4.7 corrected 2.8. Will resume warfarin lower dose 5. Morbid obesity BMI 60 Complicates overall care and recovery Dietitian to evaluate 6. History of DVT Currently anticoagulated but INR is too high to continue with warfarin for now 7. VTE prophylaxis: Not indicated as he is already anticoagulated 8. COVID-19 vaccination status: Patient states that he has not had Covid nor has he been vaccinated. When asked him about his COVID-19 vaccination status he given also subtle clue that he was done talking with that subject soon as I brought up. I did recommend given his morbid obesity and medical comorbidities that he get vaccinated. 9. CODE STATUS: Addressed with the patient. He wishes to be full CODE STATUS. Charges/Coding Visit Charges Inpatient E&M: 99627 Subs Hosp L2
--- NOTE | 2021-06-14 08:30 | RAD_ITS ---
STUDY: X-RAY CHEST REASON FOR EXAM: Male, 70 years old. SOB TECHNIQUE: Single AP portable view of the chest. COMPARISON: None. FINDINGS: Mild increased linear markings at the left lung base suggestive of linear atelectasis and/or scarring. There is no demonstrated pleural abnormality. There is borderline cardiomegaly. Normal mediastinum and chante. Normal visualized pulmonary arteries. There is atherosclerotic tortuosity of the aortic arch and descending thoracic aorta. There are diffuse degenerative changes of the visualized thoracic spine. The patient is status post left shoulder replacement. There is no demonstrated abnormality of the visualized soft tissue structures of the upper abdomen. RAD/Chest 1 View (Portable) IMPRESSION: Mild degree of increased markings at the left lung base suggestive of either linear atelectasis and/or scarring. Electronically Signed: Saleem Saavedra MD at 12:58 EST ,
[2021-06-14] MEDS: Ipratropium/Albuterol Sulfate 3 ML AMPUL.NEB INHALATION (08:34)
[2021-06-14] MEDS: Furosemide 20 MG/2 ML VIAL IV (09:05)
[2021-06-14 09:32] LABS: BNP,B-Type NATRIURETIC PEPTIDE 40.8 pg/mL (0-100)
--- NOTE | 2021-06-14 11:36 | CASEMGMT ---
Social Work Note SW reviewed chart. Pt is interested in SNF placement. SW in to speak with pt. SW introduced self and role at [facility]. SW discussed SNF placement with pt. Pt confirms first preference for SNF is [facility]. SW informed pt that [facility] is short term placement. Pt states that he hopes to only be in SNF short term and then return home. SW placed a call to Margarita with TCU and updated her. TCU is able to accept pt. Plan: TCU when medically cleared Emily Lewis SPA THERAPIST, AUTOMATIC [employer] C[employer]
--- NOTE | 2021-06-14 14:13 | PCM.CONS.GEN ---
Assessment & Plan Assessment/Plan (1) Bacteremia: PLAN: MSSA bacteremia. TTE showed no veg but poor quality study. Recommend SHLOMO. Some L shoulder pain with prior replacement there; will check xray. Repeat bcx today. Will narrow abx to cefazolin. Will follow, thank you. Unvaccinated for covid. Encouraged him and his to get their shots. HPI Consult Data Date of Consult: 06/14/21 HPI Narrative HPI Narrative: MICHEAL LEÓN, is a 70 M with remote prior L shoulder replacement, presented with falls for past week, fever, chills, BLE redness/swelling (R worse than L). No recent abscess/skin infections. No new joint pain. Came to ED, started on vanc, zosyn added this AM. Not feeling any better. Some dyspnea. No n/v/d. Unvaccinated for covid. Full ROS performed and neg except as noted above. [facility] Medical History 2019-nCoV vaccination declined Cellulitis DVT (deep venous thrombosis) HTN (hypertension) Obesity Home Medications furosemide 40 mg PO DAILY 06/11/21 [History Last Taken Unknown] latanoprost 1 drp EACH EYE QHS 06/11/21 [History Last Taken 06/09/21] potassium chloride 10 meq PO DAILY 06/11/21 [History Last Taken 06/09/21] warfarin 5 mg PO DAILY 06/11/21 [History Last Taken 06/10/21] Allergy/AdvReac Type Severity Reaction Status Date / Time No Known Allergies Allergy Verified 06/11/21 15:09 Social History Smoking Status: Never smoker Physical Exam Const alert and no apparent distress General Appearance: cooperative Exam Limitations: no limitations HEENT normocephalic and head/scalp atraumatic Eyes PERRL and EOMs intact bilaterally Neck supple and No nodes Resp normal air movement and clear to auscultation bilaterally Cardio Rate: tachycardic Heart Sounds: murmur GI soft to palpation, non-tender and non-distended Extremity Extremity Narrative: Mild pain with L shoulder movement General Extremity: edema Skin Skin Narrative: Mild BLE redness/swelling. No splinter hemorrhages Neuro CN's II-XII intact bilaterally Lab / Micro Data Result Diagrams: 06/14/21 06:16 06/14/21 06:16 Labs: Laboratory Results - last 24 hr 06/13/21 19:20: Vancomycin Trough 13.7 06/14/21 06:16: PT 28.3 H, INR 2.8 06/14/21 06:16: WBC 17.8 H, RBC 4.66, Hgb 12.2 L, Hct 38.2 L, MCV 82.0, MCH 26.2 L, MCHC 31.9 L, RDW Std Deviation 48.1 H, RDW Coeff of Jory 16.1 H, Plt Count 339, MPV 8.7, Immature Gran % (Auto) 1.700 H, Neut % (Auto) 84.0 H, Lymph % (Auto) 2.5 L, [place] % (Auto) 11.5 H, Eos % (Auto) 0.1, Baso % (Auto) 0.2, Absolute Neuts (auto) 15.0 H, Absolute Lymphs (auto) 0.45 L, Nucleated RBC % 0.1, Diff Path Review May foll, Anisocytosis 1+ 06/14/21 06:16: Sodium 134 L, Potassium 4.5, Chloride 103, Carbon Dioxide 27.0, Anion Gap 4 L, BUN 32 H, Creatinine 1.08, Estim Creat Clear Calc 58.25, Est GFR (MDRD) Af Amer 87, Est GFR (MDRD) Non-Af 72, BUN/Creatinine Ratio 29.6 H, Glucose 177 H, Calcium 10.0 06/14/21 06:16: B-Natriuretic Peptide 40.8 06/14/21 08:39: COVID-19 (GABRIELE) Not Detected Micro: Microbiology 06/14/21 11:27 Mucosa - Nose Influenza Types A,B Direct FA (DAMIAN) - Final 06/14/21 11:27 Mucosa - Nose Rapid RSV (DFA) - Final 06/14/21 09:10 Urine, Clean Catch Legionella Antigen - Final 06/14/21 09:10 Urine, Clean Catch Streptococcus pneumoniae Antigen (M - Final 06/12/21 07:47 Blood Culture (Wb) - Right Hand Bacteria Detection (PCR) - Final Staphylococcus aureus 06/12/21 07:47 Blood Culture (Wb) - Right Hand Blood Culture - Final Staphylococcus aureus 06/11/21 16:54 Blood Culture (Wb) - Anticubital Right Blood Culture - Final Staphylococcus aureus 06/11/21 16:50 Blood Culture (Wb) - Anticubital Left Bacteria Detection (PCR) - Final Staphylococcus aureus 06/11/21 16:50 Blood Culture (Wb) - Anticubital Left Blood Culture - Final Staphylococcus aureus 06/13/21 08:24 Blood Culture (Wb) - Left Hand Blood Culture - Preliminary 06/13/21 08:08 Blood Culture (Wb) - Left Hand Blood Culture - Preliminary 06/12/21 07:47 Blood Culture (Wb) - Left Hand Blood Culture - Preliminary Staphylococcus aureus Radiology Impression Chest X-Ray 06/14/21 08:30 IMPRESSION: Mild degree of increased markings at the left lung base suggestive of either linear atelectasis and/or scarring. Electronically Signed: Saleem Saavedra MD at 12:58 EST ,
[2021-06-14] MEDS: Albuterol 2.5 MG/3 ML VIAL.NEB. INHALATION ×2 (14:25→23:53)
--- NOTE | 2021-06-14 14:36 | RAD_ITS ---
STUDY: X-RAY - LEFT SHOULDER REASON FOR EXAM: Male, 70 years old. Shoulder pain after fall. TECHNIQUE: 4 view(s) of the shoulder. COMPARISON: Chest, 06/14/2021. FINDINGS: There is a humeral head replacement which appears to articulate normally with the glenoid process. No fracture or loosening from the underlying bone There is degenerative arthrosis of the acromioclavicular joint without inferior osseous spur formation. Normal acromion. Normal visualized proximal humerus. The soft tissue structures are unremarkable. Left shoulder replacement. There is no evidence of fracture or dislocation. RAD/Shoulder min 2 Views IMPRESSION: Normal x-ray examination of the shoulder. Electronically Signed: Ernesto Monreal DO at 23:45 EST ,
[2021-06-14] MEDS: Cefazolin 2 GM in 0.9% Normal Saline 100 ML IV ×2 (14:39→21:35)
--- NOTE | 2021-06-14 14:59 | CHAPLAIN ---
Type of Pastoral Visit _x__ Initial Visit ___ Follow-up Visit ___ On-call Visit ___ General Patient Visit ___ Spiritual Assessment ___ Family Conference ___ Bereavement ___ Rapid Response ___ Code Blue ___ Other (describe below) Pastoral Care Referral From _x__ Patient ___ Family ___ Nurse ___ Physician ___ Surfboard Maker ___ Ceramic Capacitor Processor ___ Other (describe below) Sacrament/Intervention _x__ Active listening ___ Anointing ___ Lutheran ___ Bereavement ___ Communion ___ Mckenzie exploration ___ ___ Life review _x__ Prayer ___ Reconciliation ___ Sacrament of Sick _x__ Supportive presence ___ Wedding ___ Other (describe below) Pastoral Comments patient is lying down in bed and sister is in the room; pt speaks of his falling and needing help at this time; pt answers questions appropriately but does not talk much beyond that; pt does welcome the support through prayer and presence
--- NOTE | 2021-06-14 15:06 | CASEMGMT ---
Social Work Note SW updated pt that [facility] has accepted pt. Pt states understanding. Plan: ANNA Lewis VALET PARKING ATTENDANT, LACING PRESSER
[2021-06-14] MEDS: 0.9% Saline Lock 10 ML Syringe IV ×2 (16:56→21:35)
[2021-06-14] MEDS: Furosemide 40 MG/4 ML Vial IV (16:56)
[2021-06-14] MEDS: Acetaminophen 325 MG Tablet 650 MG PO (18:05)
[2021-06-14] MEDS: Latanoprost 0.005% 1 Bottle 1 DRP EACH EYE (21:35)
[2021-06-15] VITALS (20 sets, daily range): BP systolic 120–158; BP diastolic 69–98; PULSE 80–106; RESP 14–34; TEMP 35.8–37.2; O2SAT 91–99
[2021-06-15] MEDS: 0.9% Saline Lock 10 ML Syringe IV ×3 (05:49→14:07)
[2021-06-15] MEDS: Cefazolin 2 GM in 0.9% Normal Saline 100 ML IV ×3 (05:49→21:27)
[2021-06-15 06:26] LABS: Absolute Lymphocyte Count 0.42 X10^3/uL (0.83-4.51); Absolute Neutrophil Count 11.8 X10^3/uL (2.0-7.7); Basophil# 0.05 X10^3/uL; Basophil% 0.3 % (0-1); Differential Indicated SCAN CRITERIA MET; Eosinophil# 0.09 X10^3/uL; Eosinophils% 0.6 % (0-5); Hematocrit 37.4 % (40-54); Hemoglobin 11.9 g/dL (13.0-16.5); Lymphocyte # 0.42 X10^3/ul (0.83-4.51); Lymphocyte % 2.9 % (19-41); Mean Corp Hgb Conc 31.8 g/dL (32-36); Mean Corpuscular Hgb 25.9 pg (27.0-32.0); Mean Corpuscular Volume 81.5 fL (80-94); Mean Platelet Vol. 9.3 fl (6.2-12.0); Monocyte% 11.7 % (0-10); NRBC Flagged by Analyzer 0.2 % (0-5); Neutrophil # 11.81 X10^3/uL (2.7-7.7); Neutrophil % 81.3 % (47-70); POSITIVE DIFFERENTIAL YES; Platelet Count 331 K/mm3 (150-450); RBC Distribution Width CV 16.4 % (11.6-14.6); RBC Distribution Width SD 48.8 fl (35.1-43.9); Red Blood Count 4.59 M/mm3 (4.6-6.2); White Blood Count 14.5 K/mm3 (4.4-11.0)
[2021-06-15 06:42] LABS: International Normalized Ratio 2.8; Prothrombin Time (Protime)PT. 28.4 SECONDS (11.7-14.9)
[2021-06-15 06:56] LABS: Anisocytosis 1+
[2021-06-15 07:07] LABS: ALB/GLOB Ratio 0.2 RATIO (0.9-2.4); AST(SGOT) 125 U/L (15-37); Alanine Aminotransfer ALT/SGPT 48 U/L (16-61); Albumin, Serum 1.3 g/dL (3.2-5.0); Alkaline Phosphatase 125 U/L (45-117); Anion Gap 4 (5-15); BUN 36 mg/dL (7-18); BUN/Creat Ratio 30.3 RATIO (10-20); Calcium,Total 10.3 mg/dL (8.5-10.1); Chloride 104 mmol/L (98-107); Creatinine, Serum 1.19 mg/dL (0.70-1.30); EST Glomerular Filtration Rate 64 mL/min (>60); Est Glom Filt Rate - Afr Amer 78 mL/min (>60); Estimated Creatinine Clearance 52.87 ml/min; Globulin 5.8 g/dL (2.2-4.2); Glucose 153 mg/dL (74-106); Potassium 4.2 mmol/L (3.5-5.1); Protein, Total 7.1 g/dL (6.4-8.2); Sodium Level 135 mmol/L (136-145)
[2021-06-15] MEDS: Potassium Chloride Oral Tablet 10 MEQ PO (08:45)
[2021-06-15] MEDS: Acetaminophen 325 MG Tablet 650 MG PO (09:14)
[2021-06-15] MEDS: Furosemide 40 MG/4 ML Vial IV ×2 (09:17→17:10)
[2021-06-15] MEDS: Nystatin Powder 15gm Bottle 1 APPLIC TOPICAL ×2 (09:17→21:27)
[2021-06-15 09:46] LABS: Base Excess 3 mmol/L (-2 to +2); Blood Gas Specimen Type ART; O2 Delivery Device Cannula; PO2 74 mmHG (75-100); SITE R Radial; SO2 94 % (95-99); Total Carbon Dioxide 30 mmol/L; pH 7.38 (7.35-7.45)
--- NOTE | 2021-06-15 09:51 | CASEMGMT ---
Social Work Note Pt is not medically ready for discharge yet. SW placed a call to Margarita with TCU and updated her. Plan: TCU when medically cleared Emily Lewis FIRE EQUIPMENT OPERATOR, MACHINE CLERICAL VERIFIER
--- NOTE | 2021-06-15 10:11 | PCM.PN.ID ---
Physical Exam Narrative Feeling better, L shoulder much less sore, no fever Const alert General Appearance: cooperative Resp normal air movement and clear to auscultation bilaterally Cardio regular rate and regular rhythm GI soft to palpation, non-tender and non-distended Extremity General Extremity: edema Skin Skin Narrative: BLE cellulitis, improved ID ID: Route of nutrition/ use of supplements: [] Nutritional Intake: [] IV Site: [] Franco Catheter: [] Assessment & Plan Assessment/Plan (1) Bacteremia: PLAN: MSSA bacteremia. TTE showed no veg but poor quality study. Recommend SHLOMO. Some L shoulder pain with prior replacement there; improved. Repeat bcx today. Cont cefazolin. Will follow. Unvaccinated for covid. Encouraged him and his to get their shots.
[2021-06-15 10:24] LABS: Pathologist Review Reviewed
[2021-06-15 10:26] LABS: Pathologist Review Reviewed
[2021-06-15 10:31] LABS: Pathologist Review Reviewed
--- NOTE | 2021-06-15 12:26 | NURSING ---
pt taken off bipap for lunch and placed on 2L NC while eating. pt reports feeling much better with the bipap in regards to respiratory effort
--- NOTE | 2021-06-15 15:31 | PN.HOSP_ITS ---
Subjective Subjective Patient found short of breath, labored breathing. Although subjectively feels better than yesterday. ABG and BiPAP ordered. Objective Data Objective Data Vital Signs: Vital Signs Temp Pulse Resp BP Pulse Ox 96.5 F L 93 31 H 153/98 H 95 06/15/21 14:24 06/15/21 15:28 06/15/21 15:28 06/15/21 14:24 06/15/21 15:28 Oxygen Flow Rate (L/min) 2 Oxygen Delivery Method Bi-pap Weight: 367 lb 12.8 oz Body Mass Index (BMI) 57.8 Intake & Output: Intake and Output for Last 24 Hours 06/13/21 06/14/21 06/15/21 23:59 23:59 23:59 Intake Total 1060 / 1060 2560 / 2560 720 / 720 Output Total 1025 / 1025 1350 / 1350 800 / 800 Balance 35 / 35 1210 / 1210 -80 / -80 Lab / Micro Data Result Diagrams: 06/15/21 05:24 06/15/21 05:24 Labs: Laboratory Results - last 24 hr 06/12/21 05:04: Diff Path Review Reviewed 06/13/21 05:15: Diff Path Review Reviewed 06/14/21 06:16: Diff Path Review Reviewed 06/15/21 05:24: PT 28.4 H, INR 2.8 06/15/21 05:24: WBC 14.5 H, RBC 4.59 L, Hgb 11.9 L, Hct 37.4 L, MCV 81.5, MCH 25.9 L, MCHC 31.8 L, RDW Std Deviation 48.8 H, RDW Coeff of Jory 16.4 H, Plt Count 331, MPV 9.3, Immature Gran % (Auto) 3.200 H, Neut % (Auto) 81.3 H, Lymph % (Auto) 2.9 L, [place] % (Auto) 11.7 H, Eos % (Auto) 0.6, Baso % (Auto) 0.3, Absolute Neuts (auto) 11.8 H, Absolute Lymphs (auto) 0.42 L, Nucleated RBC % 0.2, Diff Path Review May foll, Anisocytosis 1+ 06/15/21 05:24: Sodium 135 L, Potassium 4.2, Chloride 104, Carbon Dioxide 27.0, Anion Gap 4 L, BUN 36 H, Creatinine 1.19, Estim Creat Clear Calc 52.87, Est GFR (MDRD) Af Amer 78, Est GFR (MDRD) Non-Af 64, BUN/Creatinine Ratio 30.3 H, Glucose 153 H, Calcium 10.3 H, Total Bilirubin 1.50 H, AST 125 H, ALT 48, Alkaline Phosphatase 125 H, Total Protein 7.1, Albumin 1.3 L, Globulin 5.8 H, Albumin/Globulin Ratio 0.2 L Micro: Microbiology 06/13/21 08:24 Blood Culture (Wb) - Left Hand Blood Culture - Final Staphylococcus aureus 06/13/21 08:08 Blood Culture (Wb) - Left Hand Blood Culture - Final Staphylococcus aureus 06/14/21 06:16 Blood Culture (Wb) - Anticubital Left Blood Culture - Preliminary 06/14/21 11:27 Mucosa - Nose Influenza Types A,B Direct FA (DAMIAN) - Final 06/14/21 11:27 Mucosa - Nose Rapid RSV (DFA) - Final 06/14/21 09:10 Urine, Clean Catch Legionella Antigen - Final 06/14/21 09:10 Urine, Clean Catch Streptococcus pneumoniae Antigen (M - Final 06/12/21 07:47 Blood Culture (Wb) - Right Hand Bacteria Detection (PCR) - Final Staphylococcus aureus 06/12/21 07:47 Blood Culture (Wb) - Right Hand Blood Culture - Final Staphylococcus aureus 06/11/21 16:54 Blood Culture (Wb) - Anticubital Right Blood Culture - Final Staphylococcus aureus 06/11/21 16:50 Blood Culture (Wb) - Anticubital Left Bacteria Detection (PCR) - Final Staphylococcus aureus 06/11/21 16:50 Blood Culture (Wb) - Anticubital Left Blood Culture - Final Staphylococcus aureus 06/12/21 07:47 Blood Culture (Wb) - Left Hand Blood Culture - Preliminary Staphylococcus aureus ABG Data ABG results: ABG 06/15/21 09:41 Specimen Type ART Sample Site R Radial pH 7.38 Bicarbonate Actual 28.0 H Total CO2 30 Base Excess 3 H O2 Saturation 94 L ABG pCO2 48.0 H ABG pO2 74 L O2 Delivery Device Cannula Liter Flow 2.0 Radiography Diagnostic Testing: Radiology Impression Shoulder X-Ray 06/14/21 14:36 IMPRESSION: Normal x-ray examination of the shoulder. Electronically Signed: Ernesto Monreal DO at 23:45 EST Reading Location ID and State: [facility] / [place] Tel [phone], Service support , Physical Exam Narrative General: Alert, Oriented x3, Cooperative, morbid obese BMI 58.8 kg/min risk HEENT: Atraumatic, PERRLA, EOMI, Normocephalic Oral: No Gingival or Mucosal Lesions/ Ulcerations Neck: Supple, No JVD, Negative Carotid Bruits Lungs: Air entry diminished in bilateral lung bases. Tachypneic, hypoxia on 2 L of oxygen. Labored breathing. Wheezings improved. Cardiovascular: Sinus rhythm, Normal S1, Normal S2, No murmurs Abdomen: Bowel Sounds Present, Soft, Non Tender, Non-Distended : No renal angle tenderness. No suprapubic tenderness. Extremities: Bilateral lower extremity pitting and nonpitting edema, Capillary Refill Less than 3 Seconds Skin: Bilateral lymphedema, chronic Musculoskeletal: No Tenderness to Palpation of Joints or Extremities Neurological: Cranial nerves II-XII grossly intact, DTR 2+/4 and Symmetrical, Neuro grossly intact Psych/Mental Status: Normal Affect, Appropriate. Assessment & Plan Assessment/Plan (1) Fall: QUALIFIERS: Encounter type: initial encounter Qualified Code(s): W19.XXXA - Unspecified fall, initial encounter (2) Leukocytosis: QUALIFIERS: Leukocytosis type: unspecified Qualified Code(s): D72.829 - Elevated white blood cell count, unspecified (3) Bacteremia: PLAN: 1. MSSA bacteremia: Blood cultures x2 on 06/11 shows MSSA. Repeat blood culture on 06/12, 06/13 also growing gram-positive cocci. ID is consulted. Suspicion of splinter hemorrhage. ID narrowed antibiotic to cefazolin. I think echo was ordered for heart failure but I do not see mention of vegetation. Discussed with the installation and repair technician and because of body habitus could not see the valves is working well. ID recommended SHLOMO. Repeat blood culture ordered today. Patient is unvaccinated for Covid. 06/15: Repeat blood culture from 06/14 shows gram-positive cocci in aerobic and anaerobic bottle. Influenza and RSV negative. SHLOMO ordered. Leukocytosis improving. On IV cefazolin 2. Acute on chronic HFpEF with lower extremity edema: TTE is done shows EF 65%, hyperdynamic LV systolic function, stage I diastolic function. BNP normal but it may falsely normal because of morbid obesity. Lasix changed to IV 20 mg twice daily. Patient has crepitations in the morning. Individually reviewed the chest x-ray film and shows currently B-lines and interstitial edema although reported left lung base during electrolysis. 2D echo EF 65% with a stage I diastolic dysfunction. Tricuspid valve not well visualized therefore unable to get RVSP. Patient might have undiagnosed sleep apnea recommended operator lights follow-up to get outpatient polysomnogram. 06/15: Acute hypoxic and hypercarbic respiratory failure probably due to undiagnosed COPD heart failure, obesity hypoventilation syndrome/sleep apnea: Patient is started on BiPAP. He was having labored breathing today. Fall/debility/failure to thrive: Patient had remote left shoulder replacement. Patient had recurrent fall for past 1 week. Patient also has degenerative arthritis, poor mobility, balance with bilateral lower leg edema and redness, right worse than left. Shoulder x-ray ordered and done individually reviewed and shows left prosthetic humerus head. Official report pending. . 3. Leukocytosis with neutrophilia and lymphopenia. Mild anemia of chronic disease, normocytic normochromic anemia: Most likely infectious in origin due to MSSA bacteremia. 4. Coagulopathy due to warfarin INR 4.7 corrected 2.8. Will resume warfarin lower dose 06/15: INR 2.8. Continue warfarin 3 mg daily. 5. Morbid obesity BMI 60 Complicates overall care and recovery Dietitian to evaluate 6. History of DVT Currently anticoagulated but INR is too high to continue with warfarin for now 7. VTE prophylaxis: Not indicated as he is already anticoagulated 8. COVID-19 vaccination status: Patient states that he has not had Covid nor has he been vaccinated. When asked him about his COVID-19 vaccination status he given also subtle clue that he was done talking with that subject soon as I brought up. I did recommend given his morbid obesity and medical comorbidities that he get vaccinated. 9. CODE STATUS: Addressed with the patient. He wishes to be full CODE STATUS. Charges/Coding Visit Charges Inpatient E&M: 18089 Subs Hosp L2
--- NOTE | 2021-06-15 15:35 | ECHOTEE_ITS ---
Reason For Study: Staph bacteremia, R/O Endocarditis Medication SHLOMO probe 6VT-D (SN [id number]) passed without difficulty. No complications were noted. Cetacaine Topical [place] given X3 orally. Versed 1 mg given slow IVP. Fentanyl 50 mcg given slow IVP. Performed a rapid injection of agitated mix of 9 cc saline and 1cc air to assess for atrial septal defect. Left Ventricle Normal LV size. Left ventricular systolic function is normal. The estimated ejection fraction is 60 %. No regional wall motion abnormalities noted. Right Ventricle Normal RV size. Normal systolic function. Atria Bubble contrast study negative for right to left interatrial shunt. The left atrium is mildly enlarged. Normal right atrium. Mitral Valve Normal mitral valve. Tricuspid Valve Normal tricuspid valve. Aortic Valve Trisinus/trileaflet aortic valve. Mild diffuse aortic valve thickening. Pulmonic Valve Normal pulmonic valve. Vessels Normal aortic root. Normal arch. The pulmonary artery is normal size. Pericardium No pericardial effusion. ECHO/Echo Transesophageal (SHLOMO) Interpretation Summary There is no evidence of a mass or vegetation. This does not rule out endocardit is. Normal LV size. Left ventricular systolic function is normal. The estimated ejection fraction is 60 %. Structurally normal valves. Ordering Physician: Donte Serna Referring Physician: Maury Harley Performed By: Shaila Matos RDCS
[2021-06-15 15:54] LABS: Pathologist Review Reviewed
[2021-06-15] MEDS: Ipratropium/Albuterol Sulfate 3 ML AMPUL.NEB INHALATION (19:25)
[2021-06-15] MEDS: Latanoprost 0.005% 1 Bottle 1 DRP EACH EYE (21:28)
[2021-06-16] VITALS (22 sets, daily range): BP systolic 123–146; BP diastolic 65–83; PULSE 86–103; RESP 14–32; TEMP 36.6–37.1; O2SAT 94–98
[2021-06-16] MEDS: Cefazolin 2 GM in 0.9% Normal Saline 100 ML IV ×3 (05:49→22:54)
[2021-06-16 05:59] LABS: Hematocrit 37.5 % (40-54); Mean Corpuscular Hgb 25.6 pg (27.0-32.0); Mean Corpuscular Volume 80.1 fL (80-94); Mean Platelet Vol. 9.4 fl (6.2-12.0); POSITIVE COUNT YES; POSITIVE DIFFERENTIAL YES; POSITIVE MORPHOLOGY YES; Platelet Count 344 K/mm3 (150-450); RBC Distribution Width CV 16.3 % (11.6-14.6); RBC Distribution Width SD 47.6 fl (35.1-43.9); Red Blood Count 4.68 M/mm3 (4.6-6.2); White Blood Count 13.5 K/mm3 (4.4-11.0)
[2021-06-16 06:00] LABS: Differential Indicated MANUAL DIFF
[2021-06-16 06:06] LABS: International Normalized Ratio 2.8; Prothrombin Time (Protime)PT. 28.6 SECONDS (11.7-14.9)
[2021-06-16 06:13] LABS: Anisocytosis 1+
[2021-06-16 06:15] LABS: Absolute Lymphocyte Count 0.67 X10^3/uL (0.83-4.51); Absolute Neutrophil Count 11.2 X10^3/uL (2.0-7.7); Neutrophil-Band 8 % (0-5); Neutrophil-Segmented 75 % (47-70); Total Cells Counted 100 (MANUAL DIFF)
[2021-06-16 06:16] LABS: Lymphocyte 5 % (19-41); Monocyte 6 % (0-10); Myelocyte 6 % (0-0); Platelet Estimate ADEQUATE (ADEQ); Red Cell Morphology NORM C+C NORMAL (NORM C&C)
[2021-06-16 06:20] LABS: ALB/GLOB Ratio 0.2 RATIO (0.9-2.4); AST(SGOT) 91 U/L (15-37); Alanine Aminotransfer ALT/SGPT 33 U/L (16-61); Albumin, Serum 1.2 g/dL (3.2-5.0); Alkaline Phosphatase 130 U/L (45-117); Anion Gap 4 (5-15); BUN 38 mg/dL (7-18); BUN/Creat Ratio 37.3 RATIO (10-20); Chloride 104 mmol/L (98-107); Creatinine, Serum 1.02 mg/dL (0.70-1.30); EST Glomerular Filtration Rate 77 mL/min (>60); Est Glom Filt Rate - Afr Amer 93 mL/min (>60); Estimated Creatinine Clearance 61.68 ml/min; Globulin 5.9 g/dL (2.2-4.2); Glucose 246 mg/dL (74-106); Potassium 4.5 mmol/L (3.5-5.1); Protein, Total 7.1 g/dL (6.4-8.2); Sodium Level 137 mmol/L (136-145)
[2021-06-16] MEDS: Ipratropium/Albuterol Sulfate 3 ML AMPUL.NEB INHALATION ×4 (07:39→19:36)
[2021-06-16 08:43] LABS: CPK Total, Creatine Kinase 36 U/L (39-308)
[2021-06-16] MEDS: Nystatin Powder 15gm Bottle 1 APPLIC TOPICAL ×2 (11:09→22:58)
[2021-06-16] MEDS: Furosemide 40 MG/4 ML Vial IV ×2 (11:09→17:44)
[2021-06-16] MEDS: Potassium Chloride Oral Tablet 10 MEQ PO (11:09)
--- NOTE | 2021-06-16 13:07 | PN.HOSP_ITS ---
Subjective Subjective Seen and examined. Shortness of breath and overall respiratory status is better. Patient was on BiPAP last night. No dyspnea at rest. SHLOMO scheduled for today. Objective Data Objective Data Vital Signs: Vital Signs Temp Pulse Resp BP Pulse Ox 98.4 F 92 24 H 141/81 H 94 06/16/21 10:30 06/16/21 11:01 06/16/21 11:01 06/16/21 10:30 06/16/21 10:30 Oxygen Flow Rate (L/min) 2 Oxygen Delivery Method Nasal Cannula Weight: 364 lb 10.313 oz Body Mass Index (BMI) 57.8 Intake & Output: Intake and Output for Last 24 Hours 06/14/21 06/15/21 06/16/21 23:59 23:59 23:59 Intake Total 2560 / 2560 1180 / 1180 410 / 410 Output Total 1350 / 1350 1350 / 1350 1375 / 1375 Balance 1210 / 1210 -170 / -170 -965 / -965 Lab / Micro Data Result Diagrams: 06/16/21 05:40 06/16/21 05:40 Labs: Laboratory Results - last 24 hr 06/15/21 05:24: Diff Path Review Reviewed 06/16/21 05:40: PT 28.6 H, INR 2.8 06/16/21 05:40: WBC 13.5 H, RBC 4.68, Hgb 12.0 L, Hct 37.5 L, MCV 80.1, MCH 25.6 L, MCHC 32.0, RDW Std Deviation 47.6 H, RDW Coeff of Jory 16.3 H, Plt Count 344, MPV 9.4, Neut % (Auto) Not Reportable, Absolute Neuts (auto) 11.2 H, Absolute Lymphs (auto) 0.67 L, Total Counted 100, Neutrophils % (Manual) 75 H, Band Neutrophils % 8 H, Lymphocytes % (Manual) 5 L, Monocytes % (Manual) 6, Myelocytes % 6 H, Diff Path Review May , Platelet Estimate ADEQUATE, RBC Morphology NORM C+C, Anisocytosis 1+ 06/16/21 05:40: Sodium 137, Potassium 4.5, Chloride 104, Carbon Dioxide 29.0, Anion Gap 4 L, BUN 38 H, Creatinine 1.02, Estim Creat Clear Calc 61.68, Est GFR (MDRD) Af Amer 93, Est GFR (MDRD) Non-Af 77, BUN/Creatinine Ratio 37.3 H, Glucose 246 H, Calcium 10.0, Total Bilirubin 0.90, AST 91 H, ALT 33, Alkaline Phosphatase 130 H, Total Protein 7.1, Albumin 1.2 L, Globulin 5.9 H, Albumin/Globulin Ratio 0.2 L 06/16/21 05:40: Total Creatine Kinase 36 L Micro: Microbiology 06/12/21 07:47 Blood Culture (Wb) - Left Hand Blood Culture - Final Staphylococcus aureus 06/14/21 06:16 Blood Culture (Wb) - Anticubital Left Blood Culture - Preliminary Staphylococcus aureus 06/13/21 08:24 Blood Culture (Wb) - Left Hand Blood Culture - Final Staphylococcus aureus 06/13/21 08:08 Blood Culture (Wb) - Left Hand Blood Culture - Final Staphylococcus aureus 06/14/21 11:27 Mucosa - Nose Influenza Types A,B Direct FA (DAMIAN) - Final 06/14/21 11:27 Mucosa - Nose Rapid RSV (DFA) - Final 06/14/21 09:10 Urine, Clean Catch Legionella Antigen - Final 06/14/21 09:10 Urine, Clean Catch Streptococcus pneumoniae Antigen (M - Final 06/12/21 07:47 Blood Culture (Wb) - Right Hand Bacteria Detection (PCR) - Final Staphylococcus aureus 06/12/21 07:47 Blood Culture (Wb) - Right Hand Blood Culture - Final Staphylococcus aureus 06/11/21 16:54 Blood Culture (Wb) - Anticubital Right Blood Culture - Final Staphylococcus aureus 06/11/21 16:50 Blood Culture (Wb) - Anticubital Left Bacteria Detection (PCR) - Final Staphylococcus aureus 06/11/21 16:50 Blood Culture (Wb) - Anticubital Left Blood Culture - Final Staphylococcus aureus Radiography Diagnostic Testing: Radiology Impression Transesophageal Echocardiogram 06/15/21 15:35 Interpretation Summary There is no evidence of a mass or vegetation. This does not rule out endocarditis. Normal LV size. Left ventricular systolic function is normal. The estimated ejection fraction is 60 %. Structurally normal valves. Ordering Physician: Donte Serna Referring Physician: Maury Harley Performed By: Shaila Matos RDCS Physical Exam Narrative Physical exam General: Alert, Oriented x3, Cooperative, morbid obese BMI 58.8 kg/min risk HEENT: Atraumatic, PERRLA, EOMI, Normocephalic Oral: No Gingival or Mucosal Lesions/ Ulcerations Neck: Supple, No JVD, Negative Carotid Bruits Lungs: Air entry diminished in bilateral lung bases. hypoxia on 2 L of oxygen. Rhonchi present. Wheezing improved. Respiratory rate 20 to 22/min Cardiovascular: Sinus rhythm, Normal S1, Normal S2, No murmurs Abdomen: Bowel Sounds Present, Soft, Non Tender, Non-Distended : No renal angle tenderness. No suprapubic tenderness. Extremities: Bilateral lower extremity pitting and nonpitting edema, Capillary Refill Less than 3 Seconds Skin: Bilateral lymphedema, chronic Musculoskeletal: No Tenderness to Palpation of Joints or Extremities Neurological: Cranial nerves II-XII grossly intact, DTR 2+/4 and Symmetrical, Neuro grossly intact Psych/Mental Status: Normal Affect, Appropriate. Assessment & Plan Assessment/Plan (1) Fall: QUALIFIERS: Encounter type: initial encounter Qualified Code(s): W19.XXXA - Unspecified fall, initial encounter (2) Leukocytosis: QUALIFIERS: Leukocytosis type: unspecified Qualified Code(s): D72.829 - Elevated white blood cell count, unspecified (3) Bacteremia: PLAN: 1. MSSA bacteremia: Blood cultures x2 on 06/11 shows MSSA. Repeat blood culture on 06/12, 06/13 also growing gram-positive cocci. ID is consulted. Suspicion of splinter hemorrhage. ID narrowed antibiotic to cefazolin. I think echo was ordered for heart failure but I do not see mention of vegetation. Discussed with the quality assurance lab technician and because of body habitus could not see the valves is working well. ID recommended SHLOMO. Repeat blood culture ordered today. Patient is unvaccinated for Covid. 06/15: Repeat blood culture from 06/14 shows gram-positive cocci in aerobic and anaerobic bottle. Influenza and RSV negative. SHLOMO ordered. Leukocytosis improving. On IV cefazolin 06/16: Repeat blood culture ordered. SHLOMO negative for vegetation or mass. Structurally normal valves. Discussed with ID. Follow cultures and once negative plan for long-term antibiotic. Patient did not had fever last 3 days per 2. Acute on chronic HFpEF with lower extremity edema: TTE is done shows EF 65%, hyperdynamic LV systolic function, stage I diastolic function. BNP normal but it may falsely normal because of morbid obesity. Lasix changed to IV 20 mg twice daily. Patient has crepitations in the morning. Individually reviewed the chest x-ray film and shows currently B-lines and interstitial edema although reported left lung base during electrolysis. 2D echo EF 65% with a stage I diastolic dysfunction. Tricuspid valve not well visualized therefore unable to get RVSP. Patient might have undiagnosed sleep apnea recommended senior net architect follow-up to get outpatient polysomnogram. 06/15: Acute hypoxic and hypercarbic respiratory failure probably due to undiagnosed COPD exacerbation, chronic diastolic heart failure, obesity hypoventilation syndrome/sleep apnea: ABG 7.3 on 2 L of oxygen. Patient is started on BiPAP. He was having labored breathing today. 06/16: Patient slept good on BiPAP yesterday. Continue BiPAP during nap and night. IV Solu-Medrol was restarted and changed to prednisone today, total of 5 days. Fall/debility/failure to thrive: Patient had remote left shoulder replacement. Patient had recurrent fall for past 1 week. Patient also has degenerative arthritis, poor mobility, balance with bilateral lower leg edema and redness, right worse than left. Shoulder x-ray ordered and done individually reviewed and shows left prosthetic humerus head. Official report pending. 3. Leukocytosis with neutrophilia and lymphopenia. Mild anemia of chronic disease, normocytic normochromic anemia: Most likely infectious in origin due to MSSA bacteremia. 4. Coagulopathy due to warfarin INR 4.7 corrected 2.8. Will resume warfarin lower dose 06/15: INR 2.8. Continue warfarin 3 mg daily. 06/16: INR 2.8. 5. Morbid obesity BMI 60 Complicates overall care and recovery Dietitian to evaluate 6. History of DVT Currently anticoagulated but INR is too high to continue with warfarin for now 7. VTE prophylaxis: Not indicated as he is already anticoagulated 8. COVID-19 vaccination status: Patient states that he has not had Covid nor has he been vaccinated. When asked him about his COVID-19 vaccination status he given also subtle clue that he was done talking with that subject soon as I brought up. I did recommend given his morbid obesity and medical comorbidities that he get vaccinated. 9. CODE STATUS: Addressed with the patient. He wishes to be full CODE STATUS. Charges/Coding Visit Charges Inpatient E&M: 35427 Subs Hosp L2
--- NOTE | 2021-06-16 13:51 | PCM.PN.ID ---
Physical Exam Narrative Feeling better, L shoulder feeling fine, no fever, no n/v/d. Const alert and no apparent distress General Appearance: cooperative Resp normal air movement and clear to auscultation bilaterally Cardio regular rate and regular rhythm GI soft to palpation, non-tender and non-distended Skin no rashes or lesions noted ID ID: Route of nutrition/ use of supplements: [] Nutritional Intake: [] IV Site: [] Franco Catheter: [] Assessment & Plan Assessment/Plan (1) Bacteremia: PLAN: MSSA bacteremia. TTE showed no veg but poor quality study. No veg seen on SHLOMO 06/16. Had some L shoulder pain with prior replacement there; improved. Repeat bcx today. Cont cefazolin. Will follow. Unvaccinated for covid. Encouraged him and his to get their shots. D/w primary team
[2021-06-16 14:15] LABS: Pathologist Review Reviewed
--- NOTE | 2021-06-16 15:48 | CASEMGMT ---
Social Work Note Pt is not medically ready for discharge. SW placed a call to Margarita with TCU and updated her. Emily Lewis SITE WORKER, TIPPING MACHINE OPERATOR AUTOMATIC
[2021-06-16] MEDS: 0.9% Saline Lock 10 ML Syringe IV (17:44)
[2021-06-16] MEDS: Latanoprost 0.005% 1 Bottle 1 DRP EACH EYE (22:58)
[2021-06-17] VITALS (19 sets, daily range): BP systolic 124–141; BP diastolic 81–92; PULSE 77–99; RESP 14–24; TEMP 36.6–36.7; O2SAT 90–98
[2021-06-17] MEDS: Cefazolin 2 GM in 0.9% Normal Saline 100 ML IV ×3 (05:21→21:43)
[2021-06-17] MEDS: 0.9% Saline Lock 10 ML Syringe IV ×3 (05:21→18:29)
[2021-06-17 06:36] LABS: Hematocrit 39.2 % (40-54); Hemoglobin 12.3 g/dL (13.0-16.5); Mean Corp Hgb Conc 31.4 g/dL (32-36); Mean Corpuscular Volume 82.9 fL (80-94); Mean Platelet Vol. 9.8 fl (6.2-12.0); POSITIVE COUNT YES; POSITIVE DIFFERENTIAL YES; POSITIVE MORPHOLOGY YES; Platelet Count 366 K/mm3 (150-450); RBC Distribution Width CV 16.5 % (11.6-14.6); RBC Distribution Width SD 49.9 fl (35.1-43.9); Red Blood Count 4.73 M/mm3 (4.6-6.2); White Blood Count 13.9 K/mm3 (4.4-11.0)
[2021-06-17 06:40] LABS: Differential Indicated MANUAL DIFF
[2021-06-17 06:50] LABS: Prothrombin Time (Protime)PT. 30.5 SECONDS (11.7-14.9)
[2021-06-17 06:56] LABS: Absolute Neutrophil Count 11.7 X10^3/uL (2.0-7.7)
[2021-06-17 06:57] LABS: Absolute Lymphocyte Count 0.42 X10^3/uL (0.83-4.51); Anisocytosis 1+; Lymphocyte 3 % (19-41); Monocyte 9 % (0-10); Myelocyte 4 % (0-0); Neutrophil-Band 4 % (0-5); Neutrophil-Segmented 80 % (47-70); Platelet Estimate ADEQUATE (ADEQ); Red Cell Morphology NORM C+C NORMAL (NORM C&C); Total Cells Counted 100 (MANUAL DIFF)
[2021-06-17 06:58] LABS: Anion Gap 2 (5-15); BUN 43 mg/dL (7-18); BUN/Creat Ratio 41.3 RATIO (10-20); Calcium,Total 11.1 mg/dL (8.5-10.1); Chloride 103 mmol/L (98-107); Creatinine, Serum 1.04 mg/dL (0.70-1.30); EST Glomerular Filtration Rate 75 mL/min (>60); Est Glom Filt Rate - Afr Amer 91 mL/min (>60); Estimated Creatinine Clearance 60.49 ml/min; Glucose 285 mg/dL (74-106); Potassium 4.5 mmol/L (3.5-5.1); Sodium Level 136 mmol/L (136-145)
[2021-06-17] MEDS: Ipratropium/Albuterol Sulfate 3 ML AMPUL.NEB INHALATION ×4 (07:06→19:17)
[2021-06-17] MEDS: Potassium Chloride Oral Tablet 10 MEQ PO (08:02)
[2021-06-17] MEDS: predniSONE 20 MG Tablet 40 MG PO (08:02)
[2021-06-17] MEDS: Furosemide 40 MG/4 ML Vial IV ×2 (08:02→18:27)
[2021-06-17] MEDS: Nystatin Powder 15gm Bottle 1 APPLIC TOPICAL ×2 (08:02→21:44)
[2021-06-17] MEDS: Acetaminophen 325 MG Tablet 650 MG PO (08:12)
--- NOTE | 2021-06-17 08:51 | PCM.PN.HOSP ---
Objective Data Objective Data Vital Signs: Vital Signs Temp Pulse Resp BP Pulse Ox 97.9 F 86 17 138/86 H 95 06/17/21 07:58 06/17/21 07:58 06/17/21 07:58 06/17/21 07:58 06/17/21 08:04 Oxygen Flow Rate (L/min) 2 Oxygen Delivery Method Room Air Weight: 365 lb 1.368 oz Body Mass Index (BMI) 57.8 Intake & Output: Intake and Output for Last 24 Hours 06/15/21 06/16/21 06/17/21 23:59 23:59 23:59 Intake Total 1180 / 1180 1530 / 1530 110 / 110 Output Total 1350 / 1350 2575 / 2575 Balance -170 / -170 -1045 / -1045 110 / 110 Lab / Micro Data Result Diagrams: 06/17/21 06:00 06/17/21 06:00 Labs: Laboratory Results - last 24 hr 06/16/21 05:40: Diff Path Review Reviewed 06/17/21 06:00: PT 30.5 H, INR 3.0 06/17/21 06:00: WBC 13.9 H, RBC 4.73, Hgb 12.3 L, Hct 39.2 L, MCV 82.9, MCH 26.0 L, MCHC 31.4 L, RDW Std Deviation 49.9 H, RDW Coeff of Jory 16.5 H, Plt Count 366, MPV 9.8, Neut % (Auto) Not Reportable, Absolute Neuts (auto) 11.7 H, Absolute Lymphs (auto) 0.42 L, Total Counted 100, Neutrophils % (Manual) 80 H, Band Neutrophils % 4, Lymphocytes % (Manual) 3 L, Monocytes % (Manual) 9, Myelocytes % 4 H, Diff Path Review May foll, Platelet Estimate ADEQUATE, RBC Morphology NORM C+C, Anisocytosis 1+ 06/17/21 06:00: Sodium 136, Potassium 4.5, Chloride 103, Carbon Dioxide 31.0, Anion Gap 2 L, BUN 43 H, Creatinine 1.04, Estim Creat Clear Calc 60.49, Est GFR (MDRD) Af Amer 91, Est GFR (MDRD) Non-Af 75, BUN/Creatinine Ratio 41.3 H, Glucose 285 H, Calcium 11.1 H Micro: Microbiology 06/14/21 06:16 Blood Culture (Wb) - Anticubital Left Blood Culture - Final Staphylococcus aureus 06/12/21 07:47 Blood Culture (Wb) - Left Hand Blood Culture - Final Staphylococcus aureus 06/13/21 08:24 Blood Culture (Wb) - Left Hand Blood Culture - Final Staphylococcus aureus 06/13/21 08:08 Blood Culture (Wb) - Left Hand Blood Culture - Final Staphylococcus aureus 06/14/21 11:27 Mucosa - Nose Influenza Types A,B Direct FA (DAMIAN) - Final 06/14/21 11:27 Mucosa - Nose Rapid RSV (DFA) - Final 06/14/21 09:10 Urine, Clean Catch Legionella Antigen - Final 06/14/21 09:10 Urine, Clean Catch Streptococcus pneumoniae Antigen (M - Final 06/12/21 07:47 Blood Culture (Wb) - Right Hand Bacteria Detection (PCR) - Final Staphylococcus aureus 06/12/21 07:47 Blood Culture (Wb) - Right Hand Blood Culture - Final Staphylococcus aureus 06/11/21 16:54 Blood Culture (Wb) - Anticubital Right Blood Culture - Final Staphylococcus aureus 06/11/21 16:50 Blood Culture (Wb) - Anticubital Left Bacteria Detection (PCR) - Final Staphylococcus aureus 06/11/21 16:50 Blood Culture (Wb) - Anticubital Left Blood Culture - Final Staphylococcus aureus Radiography Diagnostic Testing: Radiology Impression Transesophageal Echocardiogram 06/15/21 15:35 Interpretation Summary There is no evidence of a mass or vegetation. This does not rule out endocarditis. Normal LV size. Left ventricular systolic function is normal. The estimated ejection fraction is 60 %. Structurally normal valves. Ordering Physician: Donte Serna Referring Physician: Maury Harley Performed By: Shaila Matos RDCS Physical Exam Narrative Physical exam General: Alert, Oriented x3, Cooperative, morbid obese BMI 58.8 kg/min risk HEENT: Atraumatic, PERRLA, EOMI, Normocephalic Oral: Dry parched mucosa over upper palate. Aphthous ulcer over anterolateral tongue and whitish plaque however oropharyngeal region Neck: Supple, No JVD, Negative Carotid Bruits Lungs: Air entry diminished in bilateral lung bases. Hypoxia resolved. Rhonchi present. Wheezing improved. No tachypnea Cardiovascular: Sinus rhythm, Normal S1, Normal S2, No murmurs Abdomen: Bowel Sounds Present, Soft, Non Tender, Non-Distended : No renal angle tenderness. No suprapubic tenderness. Extremities: Bilateral lower extremity pitting and nonpitting edema, Capillary Refill Less than 3 Seconds Skin: Bilateral lymphedema, chronic Musculoskeletal: No Tenderness to Palpation of Joints or Extremities Neurological: Cranial nerves II-XII grossly intact, DTR 2+/4 and Symmetrical, Neuro grossly intact Psych/Mental Status: Normal Affect, Appropriate. Const General Appearance: cooperative HEENT normocephalic Extremity Extremity Narrative: lymphedema changes in LE. increased area of induration on posterior right calf. Skin Skin Narrative: erythema on posterior right leg. Assessment & Plan Assessment/Plan (1) Fall: QUALIFIERS: Encounter type: initial encounter Qualified Code(s): W19.XXXA - Unspecified fall, initial encounter (2) Leukocytosis: QUALIFIERS: Leukocytosis type: unspecified Qualified Code(s): D72.829 - Elevated white blood cell count, unspecified (3) Bacteremia: PLAN: 1. MSSA bacteremia: Blood cultures x2 on 06/11 shows MSSA. Repeat blood culture on 06/12, 06/13 also growing gram-positive cocci. ID is consulted. Suspicion of splinter hemorrhage. ID narrowed antibiotic to cefazolin. I think echo was ordered for heart failure but I do not see mention of vegetation. Discussed with the food equipment service technician and because of body habitus could not see the valves is working well. ID recommended SHLOMO. Repeat blood culture ordered today. Patient is unvaccinated for Covid. 06/15: Repeat blood culture from 06/14 shows gram-positive cocci in aerobic and anaerobic bottle. Influenza and RSV negative. SHLOMO ordered. Leukocytosis improving. On IV cefazolin 06/16: Repeat blood culture ordered. SHLOMO negative for vegetation or mass. Structurally normal valves. Discussed with ID. Follow cultures and once negative plan for long-term antibiotic. Patient did not had fever last 3 days 06/17: Seen by ID. Repeat blood cultures pending. He ordered left upper extremity venous duplex because of swelling. Left shoulder x-ray reported normal. 2. Acute on chronic HFpEF with lower extremity edema: TTE is done shows EF 65%, hyperdynamic LV systolic function, stage I diastolic function. BNP normal but it may falsely normal because of morbid obesity. Lasix changed to IV 20 mg twice daily. Patient has crepitations in the morning. Individually reviewed the chest x-ray film and shows currently B-lines and interstitial edema although reported left lung base during electrolysis. 2D echo EF 65% with a stage I diastolic dysfunction. Tricuspid valve not well visualized therefore unable to get RVSP. Patient might have undiagnosed sleep apnea recommended home health care coordinator follow-up to get outpatient polysomnogram. 06/15: Acute hypoxic and hypercarbic respiratory failure probably due to undiagnosed COPD exacerbation, chronic diastolic heart failure, obesity hypoventilation syndrome/sleep apnea: ABG 7.3 on 2 L of oxygen. Patient is started on BiPAP. He was having labored breathing today. 06/16: Patient slept good on BiPAP yesterday. Continue BiPAP during nap and night. 06/17: Patient respiratory status much improved. No hypoxia or tachypnea. Will stop prednisone for concern of aggravating bacteremia Fall/debility/failure to thrive: Patient had remote left shoulder replacement. Patient had recurrent fall for past 1 week. Patient also has degenerative arthritis, poor mobility, balance with bilateral lower leg edema and redness, right worse than left. Shoulder x-ray ordered and done individually reviewed and shows left prosthetic humerus head. Official report pending. 3. Leukocytosis with neutrophilia and lymphopenia. Mild anemia of chronic disease, normocytic normochromic anemia: Most likely infectious in origin due to MSSA bacteremia. 4. Coagulopathy due to warfarin INR 4.7 corrected 2.8. Will resume warfarin lower dose 06/15: INR 2.8. Continue warfarin 3 mg daily. 06/16: INR 2.8. 5. Morbid obesity BMI 60 Complicates overall care and recovery Dietitian to evaluate 6. History of DVT Currently anticoagulated but INR is too high to continue with warfarin for now 7. VTE prophylaxis: Not indicated as he is already anticoagulated 8. COVID-19 vaccination status: Patient states that he has not had Covid nor has he been vaccinated. When asked him about his COVID-19 vaccination status he given also subtle clue that he was done talking with that subject soon as I brought up. I did recommend given his morbid obesity and medical comorbidities that he get vaccinated. 9. CODE STATUS: Addressed with the patient. He wishes to be full CODE STATUS. Charges/Coding Visit Charges Inpatient E&M: 14579 Subs Hosp L2
--- NOTE | 2021-06-17 09:02 | WOUNDNOTE ---
wound photo: left posterior lower leg
--- NOTE | 2021-06-17 10:00 | VDUE_ITS ---
Reason For Study: Swelling Left Proximal Left jugular vein is spontaneous, widely patent, phasic, with no intraluminal echogenicity noted. Left subclavian vein is spontaneous, widely patent, phasic, with no intraluminal echogenicity noted. Left Arm Left axillary vein is spontaneous, patent, phasic, competent, compressible and demonstrates augmentation. Left brachial vein is compressible. Left cephalic vein is compressible. Left basilic vein is compressible. Left Lower Arm Left radial vein is compressible. Left ulnar vein is compressible. Patient Safety Preliminary sent to [facility]. VL/Venous Duplex US, Unilateral Interpretation Summary No evidence for acute deep venous thrombosis[left] upper extremity with patent and compressible cephalic and basilic veins. Ordering Physician: Osmany Gallardo Referring Physician: Maury Harley Performed By: Emily Wayne RVT ?
--- NOTE | 2021-06-17 10:00 | PCM.PN.ID ---
Physical Exam Narrative Feeling better, no new joint pain. No fever, no diarrhea. Const alert and no apparent distress General Appearance: cooperative Resp normal air movement and clear to auscultation bilaterally Cardio regular rate and regular rhythm GI soft to palpation, non-tender and non-distended Extremity Extremity Narrative: LUE swelling. Minimal pain with L shoulder movement. No tenderness on palpation. General Extremity: edema Skin no rashes or lesions noted ID ID: Route of nutrition/ use of supplements: [] Nutritional Intake: [] IV Site: [] Franco Catheter: [] Assessment & Plan Assessment/Plan (1) Bacteremia: PLAN: MSSA bacteremia. TTE showed no veg but poor quality study. No veg seen on SHLOMO 06/16. Had some L shoulder pain with prior replacement there; improved. Repeat bcx today. Cont cefazolin. With LUE edema, will check doppler. Will follow. Unvaccinated for covid. Encouraged him and his to get their shots.
[2021-06-17] MEDS: NYSTATIN 500,000 UNIT/5 ML UDC 500000 UNIT PO ×4 (11:07→21:45)
[2021-06-17 12:48] LABS: Pathologist Review Reviewed
[2021-06-17] MEDS: Latanoprost 0.005% 1 Bottle 1 DRP EACH EYE (21:47)
[2021-06-18] VITALS (15 sets, daily range): BP systolic 129–152; BP diastolic 80–88; PULSE 74–105; RESP 14–26; TEMP 36.2–36.7; O2SAT 92–98
[2021-06-18] MEDS: Cefazolin 2 GM in 0.9% Normal Saline 100 ML IV ×3 (05:07→21:30)
[2021-06-18] MEDS: 0.9% Saline Lock 10 ML Syringe IV ×3 (05:11→21:30)
[2021-06-18 06:22] LABS: Hematocrit 40.4 % (40-54); Hemoglobin 13.1 g/dL (13.0-16.5); Mean Corp Hgb Conc 32.4 g/dL (32-36); Mean Corpuscular Hgb 26.6 pg (27.0-32.0); Mean Corpuscular Volume 82.1 fL (80-94); Mean Platelet Vol. 9.6 fl (6.2-12.0); POSITIVE COUNT YES; POSITIVE DIFFERENTIAL YES; POSITIVE MORPHOLOGY YES; Platelet Count 397 K/mm3 (150-450); RBC Distribution Width CV 16.2 % (11.6-14.6); RBC Distribution Width SD 48.3 fl (35.1-43.9); Red Blood Count 4.92 M/mm3 (4.6-6.2); White Blood Count 11.7 K/mm3 (4.4-11.0)
[2021-06-18 06:28] LABS: Differential Indicated MANUAL DIFF
[2021-06-18 06:50] LABS: Anion Gap 1 (5-15); BUN 33 mg/dL (7-18); BUN/Creat Ratio 37.4 RATIO (10-20); Calcium,Total 10.7 mg/dL (8.5-10.1); Chloride 100 mmol/L (98-107); Creatinine, Serum 0.88 mg/dL (0.70-1.30); EST Glomerular Filtration Rate 91 mL/min (>60); Est Glom Filt Rate - Afr Amer 110 mL/min (>60); Estimated Creatinine Clearance 71.49 ml/min; Glucose 280 mg/dL (74-106); Potassium 4.6 mmol/L (3.5-5.1); Sodium Level 136 mmol/L (136-145)
[2021-06-18 06:52] LABS: Prothrombin Time (Protime)PT. 39.9 SECONDS (11.7-14.9)
[2021-06-18] MEDS: Ipratropium/Albuterol Sulfate 3 ML AMPUL.NEB INHALATION ×4 (06:55→19:08)
[2021-06-18 06:56] LABS: International Normalized Ratio 4.2
[2021-06-18 07:27] LABS: Lymphocyte 4 % (19-41); Metamyelocyte 3 % (0-1); Monocyte 6 % (0-10); Myelocyte 6 % (0-0); Neutrophil-Band 2 % (0-5); Neutrophil-Segmented 79 % (47-70); Nucleated Red Bld Cells,Manual 1 % (0-5); Red Cell Morphology NORM C+C NORMAL (NORM C&C); Total Cells Counted 100 (MANUAL DIFF)
[2021-06-18 07:28] LABS: Platelet Estimate ADEQUATE (ADEQ)
[2021-06-18 07:29] LABS: Absolute Lymphocyte Count 0.47 X10^3/uL (0.83-4.51); Absolute Neutrophil Count 9.5 X10^3/uL (2.0-7.7); Lymphocyte # 0.47 X10^3/ul (0.83-4.51)
[2021-06-18] MEDS: Nystatin Powder 15gm Bottle 1 APPLIC TOPICAL ×2 (08:35→21:31)
[2021-06-18] MEDS: NYSTATIN 500,000 UNIT/5 ML UDC 500000 UNIT PO ×4 (08:36→21:31)
[2021-06-18] MEDS: Potassium Chloride Oral Tablet 10 MEQ PO (08:36)
[2021-06-18] MEDS: Furosemide 40 MG/4 ML Vial IV (08:36)
--- NOTE | 2021-06-18 10:49 | CASEMGMT ---
Social Work Note Pt is not medically ready for discharge today, possibly over the weekend. SW placed a call to Margarita with TCU and updated her. Green sheet placed on chart. Plan: TCU when medically cleared Emily Lewis MSW, FIELD RADIO TECHNICIAN
--- NOTE | 2021-06-18 12:40 | PCM.PN.ID ---
Physical Exam Narrative Feeling better, no fever Const alert and no apparent distress General Appearance: cooperative Resp normal air movement and clear to auscultation bilaterally Cardio regular rate and regular rhythm GI soft to palpation, non-tender and non-distended Skin no rashes or lesions noted ID ID: Route of nutrition/ use of supplements: [] Nutritional Intake: [] IV Site: [] Franco Catheter: [] Assessment & Plan Assessment/Plan (1) Bacteremia: PLAN: MSSA bacteremia. TTE showed no veg but poor quality study. No veg seen on SHLOMO 06/16. Had some L shoulder pain with prior replacement there; improved. Repeat bcx today. 06/16 bcx neg at 48h. Cont cefazolin. With LUE edema, doppler was neg. If bcx from 06/16 remain neg tomorrow, ok for picc. Will write for 4 weeks total cefazolin with weekly bmp and cbc. ID followup in 2 weeks. Will follow. Unvaccinated for covid. Encouraged him and his to get their shots. D/w clinical case manager
[2021-06-18 13:30] LABS: Pathologist Review Reviewed
--- NOTE | 2021-06-18 15:24 | PN.HOSP_ITS ---
Subjective Subjective Follow-up for MSSA bacteremia. Objective Data Objective Data Vital Signs: Vital Signs Temp Pulse Resp BP Pulse Ox 98.1 F 95 20 H 132/83 H 97 06/18/21 14:04 06/18/21 14:04 06/18/21 14:04 06/18/21 14:04 06/18/21 14:04 Oxygen Flow Rate (L/min) 3 Oxygen Delivery Method Nasal Cannula Weight: 364 lb 6.786 oz Body Mass Index (BMI) 57.8 Intake & Output: Intake and Output for Last 24 Hours 06/16/21 06/17/21 06/18/21 23:59 23:59 23:59 Intake Total 1530 / 1530 330 / 330 700 / 700 Output Total 2575 / 2575 1950 / 1950 900 / 900 Balance -1045 / -1045 -1620 / -1620 -200 / -200 Lab / Micro Data Result Diagrams: 06/18/21 05:55 06/18/21 05:55 Labs: Laboratory Results - last 24 hr 06/18/21 05:55: WBC 11.7 H, RBC 4.92, Hgb 13.1, Hct 40.4, MCV 82.1, MCH 26.6 L, MCHC 32.4, RDW Std Deviation 48.3 H, RDW Coeff of Jory 16.2 H, Plt Count 397, MPV 9.6, Neut % (Auto) Not Reportable, Absolute Neuts (auto) 9.5 H, Absolute Lymphs (auto) 0.47 L, Total Counted 100, Neutrophils % (Manual) 79 H, Band Neutrophils % 2, Lymphocytes % (Manual) 4 L, Monocytes % (Manual) 6, Metamyelocytes % 3 H, Myelocytes % 6 H, Nucleated RBCs/100 WBC 1, Diff Path Review Reviewed, Platelet Estimate ADEQUATE, RBC Morphology NORM C+C 06/18/21 05:55: Sodium 136, Potassium 4.6, Chloride 100, Carbon Dioxide 35.0 H, Anion Gap 1 L, BUN 33 H, Creatinine 0.88, Estim Creat Clear Calc 71.49, Est GFR (MDRD) Af Amer 110, Est GFR (MDRD) Non-Af 91, BUN/Creatinine Ratio 37.4 H, Glucose 280 H, Calcium 10.7 H 06/18/21 05:55: PT 39.9 H, INR 4.2 H* Micro: Microbiology 06/16/21 12:22 Blood Culture (Wb) - Anticubital Left Blood Culture - Preliminary No growth in 48 hours. 06/15/21 10:15 Blood Culture (Wb) - Anticubital Left Blood Culture - Final Staphylococcus aureus 06/14/21 06:16 Blood Culture (Wb) - Anticubital Left Blood Culture - Final Staphylococcus aureus 06/12/21 07:47 Blood Culture (Wb) - Left Hand Blood Culture - Final Staphylococcus aureus 06/13/21 08:24 Blood Culture (Wb) - Left Hand Blood Culture - Final Staphylococcus aureus 06/13/21 08:08 Blood Culture (Wb) - Left Hand Blood Culture - Final Staphylococcus aureus 06/14/21 11:27 Mucosa - Nose Influenza Types A,B Direct FA (DAMIAN) - Final 06/14/21 11:27 Mucosa - Nose Rapid RSV (DFA) - Final 06/14/21 09:10 Urine, Clean Catch Legionella Antigen - Final 06/14/21 09:10 Urine, Clean Catch Streptococcus pneumoniae Antigen (M - Final 06/12/21 07:47 Blood Culture (Wb) - Right Hand Bacteria Detection (PCR) - Final Staphylococcus aureus 06/12/21 07:47 Blood Culture (Wb) - Right Hand Blood Culture - Final Staphylococcus aureus 06/11/21 16:54 Blood Culture (Wb) - Anticubital Right Blood Culture - Final Staphylococcus aureus 06/11/21 16:50 Blood Culture (Wb) - Anticubital Left Bacteria Detection (PCR) - Final Staphylococcus aureus 06/11/21 16:50 Blood Culture (Wb) - Anticubital Left Blood Culture - Final Staphylococcus aureus Radiography Diagnostic Testing: Radiology Impression Venous Doppler Study 06/17/21 10:00 Interpretation Summary No evidence for acute deep venous thrombosis[left] upper extremity with patent and compressible cephalic and basilic veins. Ordering Physician: Osmany Gallardo Referring Physician: Maury Harley Performed By: Emily Wayne RVT ? Physical Exam Narrative Physical exam General: Alert, Oriented x3, Cooperative, morbid obese BMI 58.8 kg/min risk HEENT: Atraumatic, PERRLA, EOMI, Normocephalic Oral: Dry parched mucosa over upper palate. Aphthous ulcer over anterolateral tongue and whitish plaque however oropharyngeal region Neck: Supple, No JVD, Negative Carotid Bruits Lungs: Air entry diminished in bilateral lung bases. Hypoxia resolved. Wheezing improved. No tachypnea Cardiovascular: Sinus rhythm, Normal S1, Normal S2, No murmurs Abdomen: Bowel Sounds Present, Soft, Non Tender, Non-Distended : No renal angle tenderness. No suprapubic tenderness. Extremities: Bilateral lower extremity pitting and nonpitting edema, Capillary Refill Less than 3 Seconds Skin: Bilateral lymphedema, chronic Musculoskeletal: No Tenderness to Palpation of Joints or Extremities Neurological: Cranial nerves II-XII grossly intact, DTR 2+/4 and Symmetrical, Neuro grossly intact Psych/Mental Status: Normal Affect, Appropriate. Assessment & Plan Assessment/Plan (1) Fall: QUALIFIERS: Encounter type: initial encounter Qualified Code(s): W19.XXXA - Unspecified fall, initial encounter (2) Leukocytosis: QUALIFIERS: Leukocytosis type: unspecified Qualified Code(s): D72.829 - Elevated white blood cell count, unspecified (3) Bacteremia: PLAN: 1. MSSA bacteremia: Blood cultures x2 on 06/11 shows MSSA. Repeat blood culture on 06/12, 06/13 also growing gram-positive cocci. ID is consulted. Suspicion of splinter hemorrhage. ID narrowed antibiotic to cefazolin. I think echo was ordered for heart failure but I do not see mention of vegetation. Discussed with the hazardous material technician and because of body habitus could not see the valves is working well. ID recommended SHLOMO. Repeat blood culture ordered today. Patient is unvaccinated for Covid. 06/15: Repeat blood culture from 06/14 shows gram-positive cocci in aerobic and anaerobic bottle. Influenza and RSV negative. SHLOMO ordered. Leukocytosis improving. On IV cefazolin 06/16: Repeat blood culture ordered. SHLOMO negative for vegetation or mass. Structurally normal valves. Discussed with ID. Follow cultures and once negative plan for long-term antibiotic. Patient did not had fever last 3 days 06/17: Seen by ID. Repeat blood cultures pending. He ordered left upper extremity venous duplex because of swelling. Left shoulder x-ray reported normal. 06/18: Blood culture from 06/15+ for gram-positive cocci in clusters but blood culture from 06/16 no growth for 48 hours. ID follow-up appreciated. Recommending blood culture from 06/16 remains negative on 06/19, PICC line and 4 weeks of IV cefazolin with weekly BMP and CBC. ID follow-up in 2 weeks. Patient is unvaccinated recommend Covid vaccine. 2. Acute on chronic HFpEF with lower extremity edema: TTE is done shows EF 65%, hyperdynamic LV systolic function, stage I diastolic function. BNP normal but it may falsely normal because of morbid obesity. Lasix changed to IV 20 mg twice daily. Patient has crepitations in the morning. Individually reviewed the chest x-ray film and shows currently B-lines and interstitial edema although reported left lung base during electrolysis. 2D echo EF 65% with a stage I diastolic dysfunction. Tricuspid valve not well visualized therefore unable to get RVSP. Patient might have undiagnosed sleep apnea recommended channel opener follow-up to get outpatient polysomnogram. 06/15: Acute hypoxic and hypercarbic respiratory failure probably due to undiagnosed COPD exacerbation, chronic diastolic heart failure, obesity hypoventilation syndrome/sleep apnea: ABG 7.3 on 2 L of oxygen. Patient is started on BiPAP. He was having labored breathing today. 06/16: Patient slept good on BiPAP yesterday. Continue BiPAP during nap and night. 06/17: Patient respiratory status much improved. No hypoxia or tachypnea. Will stop prednisone for concern of aggravating bacteremia Fall/debility/failure to thrive: Patient had remote left shoulder replacement. Patient had recurrent fall for past 1 week. Patient also has degenerative arthritis, poor mobility, balance with bilateral lower leg edema and redness, right worse than left. Shoulder x-ray ordered and done individually reviewed and shows left prosthetic humerus head. Official report pending. 3. Leukocytosis with neutrophilia and lymphopenia. Mild anemia of chronic disease, normocytic normochromic anemia: Most likely infectious in origin due to MSSA bacteremia. 4. Coagulopathy due to warfarin INR 4.7 corrected 2.8. Will resume warfarin lower dose 06/15: INR 2.8. Continue warfarin 3 mg daily. 06/16: INR 2.8. 06/17: INR 3.4. Hold warfarin today and resume 2 mg from tomorrow. Monitor INR daily 5. Morbid obesity BMI 60 Complicates overall care and recovery Dietitian to evaluate 6. History of DVT Currently anticoagulated but INR is too high to continue with warfarin for now 7. VTE prophylaxis: Not indicated as he is already anticoagulated 8. COVID-19 vaccination status: Patient states that he has not had Covid nor has he been vaccinated. When asked him about his COVID-19 vaccination status he given also subtle clue that he was done talking with that subject soon as I brought up. I did recommend given his morbid obesity and medical comorbidities that he get vaccinated. 9. CODE STATUS: Addressed with the patient. He wishes to be full CODE STATUS. Charges/Coding Visit Charges Inpatient E&M: 76913 Subs Hosp L2
[2021-06-18] MEDS: Latanoprost 0.005% 1 Bottle 1 DRP EACH EYE (21:31)
[2021-06-19] VITALS (19 sets, daily range): BP systolic 134–169; BP diastolic 78–87; PULSE 92–106; RESP 14–26; TEMP 36.6–37.1; O2SAT 92–98
[2021-06-19] MEDS: Cefazolin 2 GM in 0.9% Normal Saline 100 ML IV ×3 (05:43→21:23)
[2021-06-19 07:09] LABS: Hemoglobin 12.6 g/dL (13.0-16.5); Mean Corp Hgb Conc 31.5 g/dL (32-36); Mean Corpuscular Hgb 25.8 pg (27.0-32.0); Mean Corpuscular Volume 81.8 fL (80-94); POSITIVE COUNT YES; POSITIVE DIFFERENTIAL YES; POSITIVE MORPHOLOGY YES; RBC Distribution Width CV 16.6 % (11.6-14.6); Red Blood Count 4.89 M/mm3 (4.6-6.2); White Blood Count 13.6 K/mm3 (4.4-11.0)
[2021-06-19 07:20] LABS: International Normalized Ratio 6.9
[2021-06-19] MEDS: Ipratropium/Albuterol Sulfate 3 ML AMPUL.NEB INHALATION ×4 (07:22→19:25)
[2021-06-19 07:39] LABS: Anion Gap 1 (5-15); BUN 30 mg/dL (7-18); BUN/Creat Ratio 32.8 RATIO (10-20); Chloride 105 mmol/L (98-107); Creatinine, Serum 0.92 mg/dL (0.70-1.30); EST Glomerular Filtration Rate 87 mL/min (>60); Est Glom Filt Rate - Afr Amer 105 mL/min (>60); Estimated Creatinine Clearance 68.38 ml/min; Glucose 225 mg/dL (74-106); Potassium 4.9 mmol/L (3.5-5.1); Sodium Level 138 mmol/L (136-145)
--- NOTE | 2021-06-19 07:44 | PCM.DC ---
Discharge Instructions Follow Up Care Test Results: Test results from this visit will be discussed in further detail at your follow-up appointment, if applicable. Discharge Plan Admission Admit Date/Time: 06/11/21 17:23 Attending Provider: Donte Serna Primary Care Provider: Maury Harley Consulting Providers: Osmany Gallardo Discharge Orders/Prescriptions Prescriptions: New cefazolin 1 gram recon soln 2 g IV Q8H Qty: 75 RF: 0 No Action furosemide 40 mg tablet 40 mg PO DAILY RF: 0 latanoprost 0.005 % drops 1 drp EACH EYE QHS RF: 0 potassium chloride 10 mEq tablet extended release 10 meq PO DAILY RF: 0 warfarin 5 mg Tablet 5 mg PO DAILY RF: 0 Referrals / Follow Up: Maury Harley DO [Primary Care Provider] -
--- NOTE | 2021-06-19 07:45 | PCM.DC.SUM ---
Providers Date of Admission: 06/11/21 Date of Discharge: 06/19/21 Primary Care Physician: Dr. Maury Harley, Consultations 06/14/21 08:45 Consult: Infectious Disease Routine Consulting Provider: Osmany Gallardo Reason for Consult: staph bacteremia, spiking fever on Vanco, added zosyn EMERGENT Consult: No MD Notified: Yes Date Notified: 06/14/21 Time Notified: 08:45 Method of Notification: Provider Initiated Reason For Visit: DEBILITY Diagnosis Discharge Diagnosis (1) Fall: Status: Acute Code(s): W19.XXXA - Unspecified fall, initial encounter Qualifiers: Encounter type: initial encounter Qualified Code(s): W19.XXXA - Unspecified fall, initial encounter (2) Leukocytosis: Status: Acute Code(s): D72.829 - Elevated white blood cell count, unspecified Qualifiers: Leukocytosis type: unspecified Qualified Code(s): D72.829 - Elevated white blood cell count, unspecified (3) Bacteremia: Status: Acute Code(s): R78.81 - Bacteremia Medications at Discharge Home Medications furosemide 40 mg PO DAILY 06/11/21 latanoprost 1 drp EACH EYE QHS 06/11/21 potassium chloride 10 meq PO DAILY 06/11/21 warfarin 5 mg PO DAILY 06/11/21 cefazolin 2 g IV Q8H #75 ea 06/18/21 Weight / BMI Weight Weight: 358 lb 4.019 oz Body Mass Index (BMI) 57.8 ABG / Lab / Microbiology Data Result Diagrams: 06/18/21 05:55 06/19/21 06:37 Laboratory: Laboratory Results - last 24 hr 06/18/21 05:55: Diff Path Review Reviewed 06/19/21 06:37: Sodium 138, Potassium 4.9, Chloride 105, Carbon Dioxide 32.0, Anion Gap 1 L, BUN 30 H, Creatinine 0.92, Estim Creat Clear Calc 68.38, Est GFR (MDRD) Af Amer 105, Est GFR (MDRD) Non-Af 87, BUN/Creatinine Ratio 32.8 H, Glucose 225 H, Calcium 9.0 06/19/21 06:37: PT 59.0 H, INR 6.9 H* Microbiology: Microbiology 06/16/21 12:22 Blood Culture (Wb) - Anticubital Left Blood Culture - Preliminary No growth in 48 hours. 06/15/21 10:15 Blood Culture (Wb) - Anticubital Left Blood Culture - Final Staphylococcus aureus 06/14/21 06:16 Blood Culture (Wb) - Anticubital Left Blood Culture - Final Staphylococcus aureus 06/12/21 07:47 Blood Culture (Wb) - Left Hand Blood Culture - Final Staphylococcus aureus 06/13/21 08:24 Blood Culture (Wb) - Left Hand Blood Culture - Final Staphylococcus aureus 06/13/21 08:08 Blood Culture (Wb) - Left Hand Blood Culture - Final Staphylococcus aureus 06/14/21 11:27 Mucosa - Nose Influenza Types A,B Direct FA (DAMIAN) - Final 06/14/21 11:27 Mucosa - Nose Rapid RSV (DFA) - Final 06/14/21 09:10 Urine, Clean Catch Legionella Antigen - Final 06/14/21 09:10 Urine, Clean Catch Streptococcus pneumoniae Antigen (M - Final 06/12/21 07:47 Blood Culture (Wb) - Right Hand Bacteria Detection (PCR) - Final Staphylococcus aureus 06/12/21 07:47 Blood Culture (Wb) - Right Hand Blood Culture - Final Staphylococcus aureus 06/11/21 16:54 Blood Culture (Wb) - Anticubital Right Blood Culture - Final Staphylococcus aureus 06/11/21 16:50 Blood Culture (Wb) - Anticubital Left Bacteria Detection (PCR) - Final Staphylococcus aureus 06/11/21 16:50 Blood Culture (Wb) - Anticubital Left Blood Culture - Final Staphylococcus aureus Discharge Plan Admission Admit Date/Time: 06/11/21 17:23 Attending Provider: Donte Serna Primary Care Provider: Maury Harley Consulting Providers: Osmany Gallardo Discharge Orders/Prescriptions Prescriptions: New cefazolin 1 gram recon soln 2 g IV Q8H Qty: 75 RF: 0 No Action furosemide 40 mg tablet 40 mg PO DAILY RF: 0 latanoprost 0.005 % drops 1 drp EACH EYE QHS RF: 0 potassium chloride 10 mEq tablet extended release 10 meq PO DAILY RF: 0 warfarin 5 mg Tablet 5 mg PO DAILY RF: 0 Referrals / Follow Up: Maury Harley DO [Primary Care Provider] -
[2021-06-19 07:52] LABS: Differential Indicated MANUAL DIFF
[2021-06-19 07:55] LABS: Eosinophil 1 % (0-5); Lymphocyte 9 % (19-41); Metamyelocyte 1 % (0-1); Monocyte 2 % (0-10); Neutrophil-Segmented 87 % (47-70); Nucleated Red Bld Cells,Manual 1 % (0-5); Total Cells Counted 100 (MANUAL DIFF)
[2021-06-19 07:56] LABS: Platelet Estimate ADEQUATE (ADEQ)
[2021-06-19 07:57] LABS: Red Cell Morphology NORM C+C NORMAL (NORM C&C)
[2021-06-19 07:58] LABS: Absolute Lymphocyte Count 1.22 X10^3/uL (0.83-4.51); Absolute Neutrophil Count 11.9 X10^3/uL (2.0-7.7); Lymphocyte # 1.22 X10^3/ul (0.83-4.51); Neutrophil # 11.86 X10^3/uL (2.7-7.7)
[2021-06-19] MEDS: Potassium Chloride Oral Tablet 10 MEQ PO (08:34)
[2021-06-19] MEDS: Phytonadione (Vit K1) 5 MG TABLET PO (08:34)
--- NOTE | 2021-06-19 09:02 | NURSING ---
aware per Wendy primary access consultant RN will not place picc unless INR under 3.0. talked with Dr. Serna regarding this. talked with case mgmt vasquez and Riena RN on TCU regarding having picc placed when on TCU. aware Reina is to talk with their build and release manager and return call regarding this.
[2021-06-19] MEDS: Nystatin Powder 15gm Bottle 1 APPLIC TOPICAL ×2 (09:31→21:23)
[2021-06-19] MEDS: Furosemide 40 MG/4 ML Vial IV (09:31)
[2021-06-19] MEDS: NYSTATIN 500,000 UNIT/5 ML UDC 500000 UNIT PO ×4 (09:33→21:23)
--- NOTE | 2021-06-19 11:53 | PCM.PN.HOSP ---
Subjective Subjective Blood culture negative for 72 hours. INR is high therefore PICC line postponed it. Vitamin K 5 mg oral given. Afebrile. Heart rate 101.5. Patient on BiPAP at night. Mild tachypneic in the morning but improved Objective Data Objective Data Vital Signs: Vital Signs Temp Pulse Resp BP Pulse Ox 98.2 F 106 H 24 H 137/86 H 93 06/19/21 09:39 06/19/21 09:39 06/19/21 10:56 06/19/21 09:39 06/19/21 10:56 Oxygen Flow Rate (L/min) 1.5 Oxygen Delivery Method Nasal Cannula Weight: 358 lb 4.019 oz Body Mass Index (BMI) 57.8 Intake & Output: Intake and Output for Last 24 Hours 06/17/21 06/18/21 06/19/21 23:59 23:59 23:59 Intake Total 330 / 330 810 / 810 110 / 110 Output Total 1950 / 1950 1550 / 1950 1100 / 1100 Balance -1620 / -1620 -740 / -1140 -990 / -990 Lab / Micro Data Result Diagrams: 06/19/21 06:37 06/19/21 06:37 Labs: Laboratory Results - last 24 hr 06/18/21 05:55: Diff Path Review Reviewed 06/19/21 06:37: WBC 13.6 H, RBC 4.89, Hgb 12.6 L, Hct 40.0, MCV 81.8, MCH 25.8 L, MCHC 31.5 L, RDW Std Deviation 49.0 H, RDW Coeff of Jory 16.6 H, Plt Count , MPV 10.0, Neut % (Auto) Not Reportable, Absolute Neuts (auto) 11.9 H, Absolute Lymphs (auto) 1.22, Total Counted 100, Neutrophils % (Manual) 87 H, Lymphocytes % (Manual) 9 L, Monocytes % (Manual) 2, Eosinophils % (Manual) 1, Metamyelocytes % 1, Nucleated RBCs/100 WBC 1, Diff Path Review May , Platelet Estimate ADEQUATE, RBC Morphology NORM C+C 06/19/21 06:37: Sodium 138, Potassium 4.9, Chloride 105, Carbon Dioxide 32.0, Anion Gap 1 L, BUN 30 H, Creatinine 0.92, Estim Creat Clear Calc 68.38, Est GFR (MDRD) Af Amer 105, Est GFR (MDRD) Non-Af 87, BUN/Creatinine Ratio 32.8 H, Glucose 225 H, Calcium 9.0 06/19/21 06:37: PT 59.0 H, INR 6.9 H* Micro: Microbiology 06/16/21 12:22 Blood Culture (Wb) - Anticubital Left Blood Culture - Preliminary No growth in 48 hours. 06/15/21 10:15 Blood Culture (Wb) - Anticubital Left Blood Culture - Final Staphylococcus aureus 06/14/21 06:16 Blood Culture (Wb) - Anticubital Left Blood Culture - Final Staphylococcus aureus 06/12/21 07:47 Blood Culture (Wb) - Left Hand Blood Culture - Final Staphylococcus aureus 06/13/21 08:24 Blood Culture (Wb) - Left Hand Blood Culture - Final Staphylococcus aureus 06/13/21 08:08 Blood Culture (Wb) - Left Hand Blood Culture - Final Staphylococcus aureus 06/14/21 11:27 Mucosa - Nose Influenza Types A,B Direct FA (DAMIAN) - Final 06/14/21 11:27 Mucosa - Nose Rapid RSV (DFA) - Final 06/14/21 09:10 Urine, Clean Catch Legionella Antigen - Final 06/14/21 09:10 Urine, Clean Catch Streptococcus pneumoniae Antigen (M - Final 06/12/21 07:47 Blood Culture (Wb) - Right Hand Bacteria Detection (PCR) - Final Staphylococcus aureus 06/12/21 07:47 Blood Culture (Wb) - Right Hand Blood Culture - Final Staphylococcus aureus 06/11/21 16:54 Blood Culture (Wb) - Anticubital Right Blood Culture - Final Staphylococcus aureus 06/11/21 16:50 Blood Culture (Wb) - Anticubital Left Bacteria Detection (PCR) - Final Staphylococcus aureus 06/11/21 16:50 Blood Culture (Wb) - Anticubital Left Blood Culture - Final Staphylococcus aureus Physical Exam Narrative General: Alert, Oriented x3, Cooperative, morbid obese BMI 58.8 kg/min risk HEENT: Atraumatic, PERRLA, EOMI, Normocephalic Oral: Oral mucosa moist. Aphthous ulcer improving. Neck: Supple, No JVD, Negative Carotid Bruits Lungs: Air entry diminished in bilateral lung bases. On 1 to 2 L of oxygen. Wheezing improved. Tachypnea in a.m. Cardiovascular: Sinus rhythm, Normal S1, Normal S2, No murmurs Abdomen: Bowel Sounds Present, Soft, Non Tender, Non-Distended : No renal angle tenderness. No suprapubic tenderness. Extremities: Bilateral lower extremity pitting and nonpitting edema, Capillary Refill Less than 3 Seconds Skin: Bilateral lymphedema, chronic Musculoskeletal: No Tenderness to Palpation of Joints or Extremities. ROM restricted Neurological: Cranial nerves II-XII grossly intact, DTR 2+/4 and Symmetrical, Neuro grossly intact Psych/Mental Status: Normal Affect, Appropriate. Assessment & Plan Assessment/Plan (1) Fall: QUALIFIERS: Encounter type: initial encounter Qualified Code(s): W19.XXXA - Unspecified fall, initial encounter (2) Leukocytosis: QUALIFIERS: Leukocytosis type: unspecified Qualified Code(s): D72.829 - Elevated white blood cell count, unspecified (3) Bacteremia: PLAN: 1. MSSA bacteremia: Blood cultures x2 on 06/11 shows MSSA. Repeat blood culture on 06/12, 06/13 also growing gram-positive cocci. ID is consulted. Suspicion of splinter hemorrhage. ID narrowed antibiotic to cefazolin. I think echo was ordered for heart failure but I do not see mention of vegetation. Discussed with the compounding pharmacy technician and because of body habitus could not see the valves is working well. ID recommended SHLOMO. Repeat blood culture ordered today. Patient is unvaccinated for Covid. 06/15: Repeat blood culture from 06/14 shows gram-positive cocci in aerobic and anaerobic bottle. Influenza and RSV negative. SHLOMO ordered. Leukocytosis improving. On IV cefazolin 06/16: Repeat blood culture ordered. SHLOMO negative for vegetation or mass. Structurally normal valves. Discussed with ID. Follow cultures and once negative plan for long-term antibiotic. Patient did not had fever last 3 days 06/17: Seen by ID. Repeat blood cultures pending. He ordered left upper extremity venous duplex because of swelling. Left shoulder x-ray reported normal. 06/18: Blood culture from 06/15+ for gram-positive cocci in clusters but blood culture from 06/16 no growth for 48 hours. ID follow-up appreciated. Recommending blood culture from 06/16 remains negative on 06/19, PICC line and 4 weeks of IV cefazolin with weekly BMP and CBC. ID follow-up in 2 weeks. Patient is unvaccinated recommend Covid vaccine. 06/19: Blood culture from 06/16 shows no growth for 72 hours. PICC line was ordered but taekwondo until INR less than less than 3.0. Continue IV cefazolin through peripheral line 2. Acute on chronic HFpEF with lower extremity edema: TTE is done shows EF 65%, hyperdynamic LV systolic function, stage I diastolic function. BNP normal but it may falsely normal because of morbid obesity. Lasix changed to IV 20 mg twice daily. Patient has crepitations in the morning. Individually reviewed the chest x-ray film and shows currently B-lines and interstitial edema although reported left lung base during electrolysis. 2D echo EF 65% with a stage I diastolic dysfunction. Tricuspid valve not well visualized therefore unable to get RVSP. Patient might have undiagnosed sleep apnea recommended metal engraver follow-up to get outpatient polysomnogram. 06/15: Acute hypoxic and hypercarbic respiratory failure probably due to undiagnosed COPD exacerbation, chronic diastolic heart failure, obesity hypoventilation syndrome/sleep apnea: ABG 7.3 on 2 L of oxygen. Patient is started on BiPAP. He was having labored breathing today. 06/16: Patient slept good on BiPAP yesterday. Continue BiPAP during nap and night. 06/17: Patient respiratory status much improved. No hypoxia or tachypnea. Will stop prednisone for concern of aggravating bacteremia 06/18: Patient was tachypneic in the morning but improved. Continue BiPAP during nap and night. Patient on DuoNeb. Fall/debility/failure to thrive: Patient had remote left shoulder replacement. Patient had recurrent fall for past 1 week. Patient also has degenerative arthritis, poor mobility, balance with bilateral lower leg edema and redness, right worse than left. Shoulder x-ray ordered and done individually reviewed and shows left prosthetic humerus head. Official report pending. 3. Leukocytosis with neutrophilia and lymphopenia. Mild anemia of chronic disease, normocytic normochromic anemia: Most likely infectious in origin due to MSSA bacteremia. 4. Coagulopathy due to warfarin INR 4.7 corrected 2.8. Will resume warfarin lower dose 06/15: INR 2.8. Continue warfarin 3 mg daily. 06/16: INR 2.8. 06/17: INR 3.4. Hold warfarin today and resume 2 mg from tomorrow. Monitor INR daily 06/19: INR 6.9. Vitamin K 5 mg oral given. Monitor INR daily. Warfarin discontinued. Patient did not get warfarin last 3 days 5. Morbid obesity BMI 60 Complicates overall care and recovery Dietitian to evaluate 6. History of DVT Currently anticoagulated but INR is too high to continue with warfarin for now 7. VTE prophylaxis: Not indicated as he is already anticoagulated 8. COVID-19 vaccination status: Patient states that he has not had Covid nor has he been vaccinated. When asked him about his COVID-19 vaccination status he given also subtle clue that he was done talking with that subject soon as I brought up. I did recommend given his morbid obesity and medical comorbidities that he get vaccinated. 9. CODE STATUS: Addressed with the patient. He wishes to be full CODE STATUS. Charges/Coding Visit Charges Inpatient E&M: 00921 Subs Hosp L2
--- NOTE | 2021-06-19 13:54 | CASEMGMT ---
Social Work Telephone call to [facility]. [facility] reports to be unable to accept patient until INR is better per beef cattle farm manager, Marlee. Medical team updated. PLAN: TCU when medically cleared. Green sheet remains on chart. Marco A Lima MSW, RICKI
--- NOTE | 2021-06-19 18:09 | RAD_ITS ---
STUDY: X-RAY - PELVIS REASON FOR EXAM: Male, 70 years old. pain TECHNIQUE: One view of the pelvis was obtained. COMPARISON: None. FINDINGS: There is a non-specific bowel gas pattern. Normal visualized soft tissue structures. Mild degenerative changes of the lower lumbar spine. Normal bilateral iliac wings, sacroiliac joints and visualized sacrum. Normal visualized bilateral superior and inferior pubic rami. Normal pubic symphysis. Normal ischial tuberosities. Normal visualized right femoral head. Normal right acetabulum. Normal right hip joint. Normal visualized left femoral head. Normal left acetabulum. Normal left hip joint. RAD/Pelvis 1 or 2 Views IMPRESSION: No acute findings in the pelvis, no fracture identified. Electronically Signed: Luan Foss MD at 3:31 EDT Reading Location ID and State: [id number] / , Service support ,
--- NOTE | 2021-06-19 18:15 | RAD_ITS ---
STUDY: X-RAY - LEFT ANKLE REASON FOR EXAM: Male, 70 years old. pain TECHNIQUE: 2 view(s) of the ankle. COMPARISON: None. FINDINGS: Normal visualized distal tibia and fibula. Normal medial and lateral malleoli. Normal tibiotalar articulation and ankle mortise. Normal visualized talus and calcaneus. The visualized subtalar, talonavicular, calcaneocuboid and tarsal articulations are normal. The soft tissue structures are unremarkable. RAD/Ankle 2 Views IMPRESSION: No acute findings in the ankle. Electronically Signed: Luan Foss MD at 4:31 EDT Reading Location ID and State: [id number] / , Service support ,
--- NOTE | 2021-06-19 18:22 | RAD_ITS ---
STUDY: X-RAY - LEFT FOOT CLINICAL: Male, 70 years old. pain TECHNIQUE: 2 view(s) of the foot. COMPARISON: None. FINDINGS: Normal talus, calcaneus, and tarsal bones. Normal visualized subtalar, talonavicular, calcaneocuboid, tarsal and tarsometatarsal articulations. Normal metatarsi. Normal metatarsophalangeal joint of the great toe. Normal tibial and fibular sesamoid bones. Normal interphalangeal joint of the great toe. Normal phalanges of the great toe. Normal second through fifth metatarsophalangeal joints. Normal interphalangeal joints and phalanges of the lesser toes. The soft tissue structures are unremarkable. RAD/Foot 2 Views IMPRESSION: No acute findings in the foot. Electronically Signed: Luan Foss MD at 4:32 EDT Reading Location ID and State: [id number] / , Service support ,
--- NOTE | 2021-06-19 18:30 | RAD_ITS ---
STUDY: X-RAY - LEFT FEMUR REASON FOR STUDY: Male, 70 years old. pain TECHNIQUE: 5 view(s) of the femur. COMPARISON: None. FINDINGS: Normal visualized femur. Normal visualized soft tissue structure. Degenerative changes of the knee. RAD/Femur Min 2 Views IMPRESSION: No acute findings in the femur. Electronically Signed: Luan Foss MD at 4:22 EDT Reading Location ID and State: [id number] / , Service support ,
[2021-06-19] MEDS: Acetaminophen 325 MG Tablet 650 MG PO (19:47)
[2021-06-19] MEDS: Latanoprost 0.005% 1 Bottle 1 DRP EACH EYE (21:23)
[2021-06-19] MEDS: 0.9% Saline Lock 10 ML Syringe IV (21:25)
[2021-06-20] VITALS (7 sets, daily range): BP systolic 139–151; BP diastolic 66–79; PULSE 84–103; RESP 14–31; TEMP 36.9–37.3; O2SAT 92–95
[2021-06-20] MEDS: Cefazolin 2 GM in 0.9% Normal Saline 100 ML IV ×2 (06:24→14:07)
[2021-06-20] MEDS: 0.9% Saline Lock 10 ML Syringe IV ×2 (06:25→08:48)
[2021-06-20 06:46] LABS: Hematocrit 37.9 % (40-54); Mean Corp Hgb Conc 31.7 g/dL (32-36); Mean Corpuscular Hgb 25.8 pg (27.0-32.0); Mean Corpuscular Volume 81.5 fL (80-94); Mean Platelet Vol. 10.6 fl (6.2-12.0); POSITIVE COUNT YES; POSITIVE DIFFERENTIAL YES; POSITIVE MORPHOLOGY YES; Platelet Count 388 K/mm3 (150-450); RBC Distribution Width CV 16.8 % (11.6-14.6); RBC Distribution Width SD 49.3 fl (35.1-43.9); Red Blood Count 4.65 M/mm3 (4.6-6.2); White Blood Count 13.8 K/mm3 (4.4-11.0)
[2021-06-20 07:04] LABS: Differential Indicated MANUAL DIFF
[2021-06-20 07:10] LABS: Anion Gap 3 (5-15); BUN 34 mg/dL (7-18); BUN/Creat Ratio 42.4 RATIO (10-20); Calcium,Total 10.2 mg/dL (8.5-10.1); Chloride 100 mmol/L (98-107); EST Glomerular Filtration Rate 101 mL/min (>60); Est Glom Filt Rate - Afr Amer 123 mL/min (>60); Estimated Creatinine Clearance 78.64 ml/min; Glucose 241 mg/dL (74-106); Potassium 4.4 mmol/L (3.5-5.1); Sodium Level 135 mmol/L (136-145)
[2021-06-20] MEDS: Ipratropium/Albuterol Sulfate 3 ML AMPUL.NEB INHALATION ×2 (07:23→14:14)
[2021-06-20 07:30] LABS: Lymphocyte 4 % (19-41); Metamyelocyte 2 % (0-1); Monocyte 10 % (0-10); Myelocyte 3 % (0-0); Neutrophil-Band 1 % (0-5); Neutrophil-Segmented 80 % (47-70); Total Cells Counted 100 (MANUAL DIFF)
[2021-06-20 07:32] LABS: Absolute Lymphocyte Count 0.55 X10^3/uL (0.83-4.51); Absolute Neutrophil Count 11.8 X10^3/uL (2.0-7.7); Lymphocyte # 0.55 X10^3/ul (0.83-4.51)
[2021-06-20 07:33] LABS: Neutrophil # 11.83 X10^3/uL (2.7-7.7); Platelet Estimate ADEQUATE (ADEQ)
[2021-06-20 07:34] LABS: Red Cell Morphology NORM C+C NORMAL (NORM C&C)
--- NOTE | 2021-06-20 07:41 | NURSING ---
manager environmental health notified regarding request for picc placement with decrease in INR
[2021-06-20] MEDS: Potassium Chloride Oral Tablet 10 MEQ PO (08:46)
[2021-06-20] MEDS: Nystatin Powder 15gm Bottle 1 APPLIC TOPICAL (08:46)
[2021-06-20] MEDS: Furosemide 40 MG/4 ML Vial IV (08:46)
[2021-06-20] MEDS: NYSTATIN 500,000 UNIT/5 ML UDC 500000 UNIT PO ×2 (08:47→14:08)
--- NOTE | 2021-06-20 09:15 | TREXTCAR_ITS ---
Diet 06/16/21 12:35 Diet: Cardiac - Heart Healthy Is pt able to select menu?: Yes Routine Orders/Code Status Suppository Type: Dulcolax 10mg Suppository Frequency: Daily PRN Routine Lab Work: CBC, BMP (Weekly CBC and BMP and follow with ID) and INR (PT/INR daily until INR level is a stable about 2.5.) Code Status: Full Code Wound(s) lt leg: Wound Type: Skin Tear L arm: Wound Type: Abrasion generalized: Wound Type: Abrasion left post lower leg: Wound Type: Stasis Ulcer Dressing Change: AntiMicrobial (Aquacel AG, etc) Therapies Weight Bearing: Weight bearing as tolerated Extremity Affected:: Bilateral Lower Physical Therapy: Eval and Treat Occupational Therapy: Eval and Treat Speech Therapy: Eval and Treat Problem/Diagnosis (1) Fall: Status: Acute (2) Leukocytosis: Status: Acute (3) Bacteremia: Status: Acute Allergies/Procedures Done in Hospital Allergies No Known Allergies Allergy (Verified 06/11/21 15:09) Type of Care/Length of Stay Estimated LOS: Convalescent Care Less Than 30 days Type of Care Needed: Skilled Rehab Potential: Good Prognosis: Good Additional Orders/Day of Discharge Day of Discharge: 06/20/21 Dietary and Speech Recommendations Dietitian Recommendations/Changes: Will continue diet as ordered Discharge Plan Admission Admit Date/Time: 06/11/21 17:23 Primary Reason for Your Visit: MSSA bacteremia Attending Provider: Donte Serna Primary Care Provider: Maury Harley Consulting Providers: Osmany Gallardo Discharge Orders/Prescriptions Prescriptions: New cefazolin 1 gram recon soln 2 g IV Q8H Qty: 75 RF: 0 nystatin 100,000 unit/mL Suspension 500,000 unit PO 4X/DAY Qty: 0 RF: 0 ipratropium-albuterol 0.5 mg-3 mg(2.5 mg base)/3 mL Solution For Nebulization 3 ml inhalation Q4HWA.RT PRN (Reason: SOB) Qty: 0 RF: 0 warfarin [Jantoven] 3 mg Tablet 3 mg PO DINNER Qty: 0 RF: 0 lidocaine HCl [Lidocaine Viscous] 2 % Solution 20 ml PO Q3H PRN PRN (Reason: oral burning pain) Qty: 0 RF: 0 nystatin [Nyamyc] 100,000 unit/gram Powder 1 applic topical BID Qty: 0 RF: 0 Continued furosemide 40 mg tablet 40 mg PO DAILY RF: 0 latanoprost 0.005 % drops 1 drp EACH EYE QHS RF: 0 potassium chloride 10 mEq tablet extended release 10 meq PO DAILY RF: 0 Discontinued warfarin 5 mg Tablet 5 mg PO DAILY RF: 0 Referrals / Follow Up: Maury Harley DO [Primary Care Provider] - Florencio Ball MD [STAFF PHYSICIAN] - Within 1 Month ( Chr diastolic heart failure) Osmany Gallardo MD [STAFF PHYSICIAN] - Within 2 Weeks Disposition Disposition (needs filled in before D/C Order can be placed): Intermediate Facility Charges/Coding Visit Charges Inpatient E&M: 24361 Disch Hosp
--- NOTE | 2021-06-20 12:06 | PCM.DC.SUM ---
Providers Date of Admission: 06/11/21 Date of Discharge: 06/20/21 Primary Care Physician: Dr. Maury Harley, Consultations 06/14/21 08:45 Consult: Infectious Disease Routine Consulting Provider: Osmany Gallardo Reason for Consult: staph bacteremia, spiking fever on Vanco, added zosyn EMERGENT Consult: No MD Notified: Yes Date Notified: 06/14/21 Time Notified: 08:45 Method of Notification: Provider Initiated Reason For Visit: DEBILITY Diagnosis Discharge Diagnosis (1) Fall: Status: Acute Code(s): W19.XXXA - Unspecified fall, initial encounter Qualifiers: Encounter type: initial encounter Qualified Code(s): W19.XXXA - Unspecified fall, initial encounter (2) Leukocytosis: Status: Acute Code(s): D72.829 - Elevated white blood cell count, unspecified Qualifiers: Leukocytosis type: unspecified Qualified Code(s): D72.829 - Elevated white blood cell count, unspecified (3) Bacteremia: Status: Acute Code(s): R78.81 - Bacteremia Medications at Discharge Home Medications furosemide 40 mg PO DAILY 06/11/21 latanoprost 1 drp EACH EYE QHS 06/11/21 potassium chloride 10 meq PO DAILY 06/11/21 cefazolin 2 g IV Q8H #75 ea 06/18/21 ipratropium-albuterol 3 ml INHALATION Q4HWA.RT PRN #0 ml 06/20/21 lidocaine HCl [Lidocaine Viscous] 20 ml PO Q3H PRN PRN #0 ml 06/20/21 nystatin 500,000 unit PO 4X/DAY #0 ml 06/20/21 nystatin [Nyamyc] 1 applic TOPICAL BID #0 g 06/20/21 warfarin [Jantoven] 3 mg PO DINNER #0 tab 06/20/21 Hospital Course Summary of Care Provided Hospital Course: 70-year-old morbidly obese gentleman with multiple comorbidities was admitted with fall 5 times over the past week. During the hospital course patient was found MSSA bacteremia. Further evaluation, assessment and management plan as follows: 1. MSSA bacteremia: Blood cultures x2 on 06/11 shows MSSA. Repeat blood culture on 06/12, 06/13 also growing gram-positive cocci. ID is consulted. Suspicion of splinter hemorrhage. ID narrowed antibiotic to cefazolin. I think echo was ordered for heart failure but I do not see mention of vegetation. Discussed with the electronic systems technician and because of body habitus could not see the valves is working well. ID recommended SHLOMO. Repeat blood culture ordered today. Patient is unvaccinated for Covid. 06/15: Repeat blood culture from 06/14 shows gram-positive cocci in aerobic and anaerobic bottle. Influenza and RSV negative. SHLOMO ordered. Leukocytosis improving. On IV cefazolin 06/16: Repeat blood culture ordered. SHLOMO negative for vegetation or mass. Structurally normal valves. Discussed with ID. Follow cultures and once negative plan for long-term antibiotic. Patient did not had fever last 3 days 06/17: Seen by ID. Repeat blood cultures pending. He ordered left upper extremity venous duplex because of swelling. Left shoulder x-ray reported normal. 06/18: Blood culture from 06/15+ for gram-positive cocci in clusters but blood culture from 06/16 no growth for 48 hours. ID follow-up appreciated. Recommending blood culture from 06/16 remains negative on 06/19, PICC line and 4 weeks of IV cefazolin with weekly BMP and CBC. ID follow-up in 2 weeks. Patient is unvaccinated recommend Covid vaccine. 06/19: Blood culture from 06/16 shows no growth for 72 hours. PICC line was ordered but taekwondo until INR less than less than 3.0. Continue IV cefazolin through peripheral line 06/20: Blood culture on 06/16 for 96 hours. PICC line inserted. Patient transferred/discharged to TCU 2. Acute on chronic HFpEF with lower extremity edema: TTE is done shows EF 65%, hyperdynamic LV systolic function, stage I diastolic function. BNP normal but it may falsely normal because of morbid obesity. Lasix changed to IV 20 mg twice daily. Patient has crepitations in the morning. Individually reviewed the chest x-ray film and shows currently B-lines and interstitial edema although reported left lung base during electrolysis. 2D echo EF 65% with a stage I diastolic dysfunction. Tricuspid valve not well visualized therefore unable to get RVSP. Patient might have undiagnosed sleep apnea recommended air force senior officer follow-up to get outpatient polysomnogram. 06/15: Acute hypoxic and hypercarbic respiratory failure probably due to undiagnosed COPD exacerbation, chronic diastolic heart failure, obesity hypoventilation syndrome/sleep apnea: ABG 7.3 on 2 L of oxygen. Patient is started on BiPAP. He was having labored breathing today. 06/16: Patient slept good on BiPAP yesterday. Continue BiPAP during nap and night. 06/17: Patient respiratory status much improved. No hypoxia or tachypnea. Will stop prednisone for concern of aggravating bacteremia 06/18: Patient was tachypneic in the morning but improved. Continue BiPAP during nap and night. Patient on DuoNeb. Fall/debility/failure to thrive: Patient had remote left shoulder replacement. Patient had recurrent fall for past 1 week. Patient also has degenerative arthritis, poor mobility, balance with bilateral lower leg edema and redness, right worse than left. Shoulder x-ray ordered and done individually reviewed and shows left prosthetic humerus head. Official report pending. 06/20: Patient is evaluated at PT and OT. Yesterday he complained of severe pain over her left hip hold for 1 week with repeat BMP in 1 week until kidney function returns to normal. Follow-up PCP in ankle joint. Nursing staff is suspicion that he might have hairline fracture therefore left lower extremity femur, pelvis, knee and foot x-ray were done. Shows all arthritis but no fracture or dislocation 3. Leukocytosis with neutrophilia and lymphopenia. Mild anemia of chronic disease, normocytic normochromic anemia: Most likely infectious in origin due to MSSA bacteremia. 4. Coagulopathy due to warfarin INR 4.7 corrected 2.8. Will resume warfarin lower dose 06/15: INR 2.8. Continue warfarin 3 mg daily. 06/16: INR 2.8. 06/17: INR 3.4. Hold warfarin today and resume 2 mg from tomorrow. Monitor INR daily 06/19: INR 6.9. Vitamin K 5 mg oral given. Monitor INR daily. Warfarin discontinued. Patient did not get warfarin last 3 days 06/20: INR is 2.0. PICC line today and discharged to TCU. Start Coumadin 3 mg daily and titrate the dose as per daily PT/INR. 5. Morbid obesity BMI 60 Complicates overall care and recovery Dietitian to evaluate 6. History of DVT Currently anticoagulated but INR is too high to continue with warfarin for now 7. VTE prophylaxis: Not indicated as he is already anticoagulated 8. COVID-19 vaccination status: Patient states that he has not had Covid nor has he been vaccinated. When asked him about his COVID-19 vaccination status he given also subtle clue that he was done talking with that subject soon as I brought up. I did recommend given his morbid obesity and medical comorbidities that he get vaccinated. 9. CODE STATUS: Addressed with the patient. He wishes to be full CODE STATUS. Discharge medication reconciliation done. Discharge follow-up instructions completed. Discharge process discussed with the patient and all questions were answered to patient's satisfaction. Discharged to TCU Total time spent, exact 35 minutes on discharge meds reconciliation, examination, coordination of care with nurses and ancillary staff, review of imaging and blood test and discussion with the patient on follow-up instructions. Physical Exam Narrative Seen and examined Pain in the left knee and hip is most likely due to degenerative arthritis as it starts when he stands up or tries to move. Patient on BiPAP General: Alert, Oriented x3, Cooperative, morbid obese BMI 58.8 kg/min risk HEENT: Atraumatic, PERRLA, EOMI, Normocephalic Oral: Oral mucosa moist. Aphthous ulcer improving. Neck: Supple, No JVD, Negative Carotid Bruits Lungs: Air entry diminished in bilateral lung bases. On 1 to 2 L of oxygen. Wheezing improved. Tachypnea in a.m. Cardiovascular: Sinus rhythm, Normal S1, Normal S2, No murmurs Abdomen: Bowel Sounds Present, Soft, Non Tender, Non-Distended : No renal angle tenderness. No suprapubic tenderness. Extremities: Bilateral lower extremity pitting and nonpitting edema, Capillary Refill Less than 3 Seconds Skin: Bilateral lymphedema, chronic Musculoskeletal: No Tenderness to Palpation of Joints or Extremities. ROM restricted Neurological: Cranial nerves II-XII grossly intact, DTR 2+/4 and Symmetrical, Neuro grossly intact Psych/Mental Status: Normal Affect, Appropriate. Weight / BMI Weight Weight: 359 lb 5.655 oz Body Mass Index (BMI) 57.8 ABG / Lab / Microbiology Data Result Diagrams: 06/20/21 05:43 06/20/21 05:43 Laboratory: Laboratory Results - last 24 hr 06/20/21 05:43: WBC 13.8 H, RBC 4.65, Hgb 12.0 L, Hct 37.9 L, MCV 81.5, MCH 25.8 L, MCHC 31.7 L, RDW Std Deviation 49.3 H, RDW Coeff of Jory 16.8 H, Plt Count 388, MPV 10.6, Neut % (Auto) Not Reportable, Absolute Neuts (auto) 11.8 H, Absolute Lymphs (auto) 0.55 L, Total Counted 100, Neutrophils % (Manual) 80 H, Band Neutrophils % 1, Lymphocytes % (Manual) 4 L, Monocytes % (Manual) 10, Metamyelocytes % 2 H, Myelocytes % 3 H, Diff Path Review August, Platelet Estimate ADEQUATE, RBC Morphology NORM C+C 06/20/21 05:43: Sodium 135 L, Potassium 4.4, Chloride 100, Carbon Dioxide 32.0, Anion Gap 3 L, BUN 34 H, Creatinine 0.80, Estim Creat Clear Calc 78.64, Est GFR (MDRD) Af Amer 123, Est GFR (MDRD) Non-Af 101, BUN/Creatinine Ratio 42.4 H, Glucose 241 H, Calcium 10.2 H 06/20/21 05:43: PT 22.0 H, INR 2.0 Microbiology: Microbiology 06/17/21 06:00 Blood Culture (Wb) - Anticubital Right Blood Culture - Preliminary No growth in 48 hours. 06/16/21 12:22 Blood Culture (Wb) - Anticubital Left Blood Culture - Preliminary No growth in 48 hours. 06/15/21 10:15 Blood Culture (Wb) - Anticubital Left Blood Culture - Final Staphylococcus aureus 06/14/21 06:16 Blood Culture (Wb) - Anticubital Left Blood Culture - Final Staphylococcus aureus 06/12/21 07:47 Blood Culture (Wb) - Left Hand Blood Culture - Final Staphylococcus aureus 06/13/21 08:24 Blood Culture (Wb) - Left Hand Blood Culture - Final Staphylococcus aureus 06/13/21 08:08 Blood Culture (Wb) - Left Hand Blood Culture - Final Staphylococcus aureus 06/14/21 11:27 Mucosa - Nose Influenza Types A,B Direct FA (DAMIAN) - Final 06/14/21 11:27 Mucosa - Nose Rapid RSV (DFA) - Final 06/14/21 09:10 Urine, Clean Catch Legionella Antigen - Final 06/14/21 09:10 Urine, Clean Catch Streptococcus pneumoniae Antigen (M - Final 06/12/21 07:47 Blood Culture (Wb) - Right Hand Bacteria Detection (PCR) - Final Staphylococcus aureus 06/12/21 07:47 Blood Culture (Wb) - Right Hand Blood Culture - Final Staphylococcus aureus 06/11/21 16:54 Blood Culture (Wb) - Anticubital Right Blood Culture - Final Staphylococcus aureus 06/11/21 16:50 Blood Culture (Wb) - Anticubital Left Bacteria Detection (PCR) - Final Staphylococcus aureus 06/11/21 16:50 Blood Culture (Wb) - Anticubital Left Blood Culture - Final Staphylococcus aureus Radiography Diagnostic Testing: Radiology Impression Pelvis X-Ray 06/19/21 18:09 IMPRESSION: No acute findings in the pelvis, no fracture identified. Electronically Signed: Luan Foss MD at 3:31 EDT Reading Location ID and State: [place] Sy MD , Service support , Ankle X-Ray 06/19/21 18:15 IMPRESSION: No acute findings in the ankle. Electronically Signed: Luan Foss MD at 4:31 EDT Reading Location ID and State: [place] Sy MD , Service support , Foot X-Ray 06/19/21 18:22 IMPRESSION: No acute findings in the foot. Electronically Signed: Luan Foss MD at 4:32 EDT Reading Location ID and State: [place] Sy MD , Service support , Femur X-Ray 06/19/21 18:30 IMPRESSION: No acute findings in the femur. Electronically Signed: Luan Foss MD at 4:22 EDT Reading Location ID and State: [place] Sy MD , Service support , Meaningful Use Info Meaningful Use Diagnoses (Choose all that apply): None applicable Discharge Plan Admission Admit Date/Time: 06/11/21 17:23 Primary Reason for Your Visit: MSSA bacteremia Attending Provider: Donte Serna Primary Care Provider: Maury Harley Consulting Providers: Osmany Gallardo Instructions Additional Instructions / Restrictions: Monitor INR daily Discharge Orders/Prescriptions Prescriptions: New cefazolin 1 gram recon soln 2 g IV Q8H Qty: 75 RF: 0 nystatin 100,000 unit/mL Suspension 500,000 unit PO 4X/DAY Qty: 0 RF: 0 ipratropium-albuterol 0.5 mg-3 mg(2.5 mg base)/3 mL Solution For Nebulization 3 ml inhalation Q4HWA.RT PRN (Reason: SOB) Qty: 0 RF: 0 warfarin [Jantoven] 3 mg Tablet 3 mg PO DINNER Qty: 0 RF: 0 lidocaine HCl [Lidocaine Viscous] 2 % Solution 20 ml PO Q3H PRN PRN (Reason: oral burning pain) Qty: 0 RF: 0 nystatin [Nyamyc] 100,000 unit/gram Powder 1 applic topical BID Qty: 0 RF: 0 Continued furosemide 40 mg tablet 40 mg PO DAILY RF: 0 latanoprost 0.005 % drops 1 drp EACH EYE QHS RF: 0 potassium chloride 10 mEq tablet extended release 10 meq PO DAILY RF: 0 Discontinued warfarin 5 mg Tablet 5 mg PO DAILY RF: 0 Referrals / Follow Up: Maury Hraley DO [Primary Care Provider] - Florencio Ball MD [STAFF PHYSICIAN] - Within 1 Month ( Chr diastolic heart failure) Osmany Gallardo MD [STAFF PHYSICIAN] - Within 2 Weeks Disposition Disposition (needs filled in before D/C Order can be placed): [facility] Facility Charges/Coding Visit Charges Inpatient E&M: 16237 Disch Hosp
--- NOTE | 2021-06-20 14:37 | NURSING ---
Report called to [facility] on TCU.
[2021-06-21 12:48] LABS: Pathologist Review Reviewed
[2021-06-21 12:50] LABS: Pathologist Review Reviewed
== END 2021-06-20 16:17 | disposition skilled nursing facility (03) | DRG 871 ==
LOC: ED 16:50 → MS3 06-12 12:09
PROVIDERS: Emergency Provider Emergency Medicine; PCP Family Medicine; Visit Provider Internal Medicine
DX: R78.81 Bacteremia (principal); I50.33 Acute on chronic diastolic (congestive) heart failure; J96.01 Acute respiratory failure with hypoxia; J96.02 Acute respiratory failure with hypercapnia; J44.1 Chronic obstructive pulmonary disease with (acute) exacerbation; Z68.44 Body mass index [BMI] 60.0-69.9, adult; I27.23 Pulmonary hypertension due to lung diseases and hypoxia; D63.8 Anemia in other chronic diseases classified elsewhere; R62.7 Adult failure to thrive; E66.01 Morbid (severe) obesity due to excess calories; I11.0 Hypertensive heart disease with heart failure; I89.0 Lymphedema, not elsewhere classified; G47.30 Sleep apnea, unspecified; D72.829 Elevated white blood cell count, unspecified; M19.90 Unspecified osteoarthritis, unspecified site; B95.61 Methicillin susceptible Staphylococcus aureus infection as the cause of diseases classified elsewhere; D72.810 Lymphocytopenia; B96.89 Other specified bacterial agents as the cause of diseases classified elsewhere; R53.81 Other malaise; Z79.01 Long term (current) use of anticoagulants; R79.1 Abnormal coagulation profile; Z74.09 Other reduced mobility; Z79.899 Other long term (current) drug therapy; Z86.718 Personal history of other venous thrombosis and embolism; T45.515A Adverse effect of anticoagulants, initial encounter; Z91.81 History of falling
CPT/HCPCS: 36415; 36569; 36600; 71045; 72170; 73030; 73080; 73552; 73560; 73600; 73610; 73620; 80048; 80053; 80202; 81001; 82550; 82803; 83880; 84443; 84484; 85025; 85610; 87040; 87077; 87149; 87186; 87426; 87449; 87635; 87804; 87807; 93306; 93312; 93320; 93325; 93971; 94002; 94003; 94640; 94660; 97110; 97162; 97166; 97530; 97535; 97802; 99251; 99285; J7030; J7040; Q9957; A4216; C8929; G0463; J1940; U0003; U0005

== ENCOUNTER 2021-06-20 16:28 | Inpatient (IN) | payer MEDICARE, OTHER, SELFPAY ==
[2021-06-20 16:37] VITALS: BMI 57.7
--- NOTE | 2021-06-20 17:27 | HP.PCM_ITS ---
HPI - General General Date of Admission: 06/20/21 HPI Narrative 06/11/2021 MICHEAL LEÓN, is a 70 Male who presents with fall. Fall, Fifth fall this week, injured elbow. Injured knee, ankle, more weak than normal. WBC 19. 06/11/2021 Admit to Hospital. PT/OT for snf facility, unable to live alone currently. No cellulitis currently. Hold warfarin for INR 3.9. Increase Lasix to 40mg twice daily for bilateral lower extremity edema. 06/11/2021 Echo Normal left ventricle size. Left ventricular systolic function hyperdynamic. EF 65%. Stage 1 diastolic dysfunction. 06/12/2021 Vancomycin, repeat blood cultures, ? cellulitis of lower extremity for Staph aureus bacteremia. Hold warfarin for INR 4.7. 06/13/2021 Feels okay. declined covid19 vaccine. 06/14/2021 Fever 100.3, short of breath on oxygen 2 liters per nasal cannula. Methicillin sensitive staph aureus bacteremia, repeat blood culture positive, infectious disease recommended SHLOMO. Lasix 20mg iv twice daily for acute on chronic diastolic congestive heart failure. Hold warfarin, INR 2.8. 06/15/2021 Dr. Gallardo recommended Cefazolin IV for MSSA bacteremia. Left shoulder pain improved, history of left shoulder replacement. 06/15/2021 SHLOMO negative for vegetation, but SHLOMO poor quality. 06/16/2021 Breathing better, BiPAP last night. Restart warfarin at 3mg daily. Repeat blood culture, continue Cefazolin for MSSA bacteremia. 06/17/2021 Doppler ultrasound left upper extremity negative for DVT. Stop prednisone in light of MSSA bacteremia. 06/18/2021 Left shoulder pain improved. 06/16/2021 blood culture negative x [address] Gallardo notes if 06/16/2021 blood culture negative 06/19/2021, then PICC line for 4 weeks total of IV Cefazolin. 06/19/2021 Blood culture negative x 72 hours. PICC line delayed due to elevated INR, vitamin K given, warfarin stopped. BiPAP at night helpful. 06/20/2021 PICC line inserted. 06/20/2021 Admit to TCU with debility, here for rehabilitation, strengthening, longterm intravenous antibiotics, prior to discharge home alone. [facility] Medical History (Updated 06/20/21 @ 17:[address] Yobani Tidwell MD) 2019-nCoV vaccination declined Cellulitis DVT (deep venous thrombosis) HTN (hypertension) Obesity Home Medications furosemide 40 mg PO DAILY 06/11/21 [History Last Taken Unknown] latanoprost 1 drp EACH EYE QHS 06/11/21 [History Last Taken 06/09/21] potassium chloride 10 meq PO DAILY 06/11/21 [History Last Taken 06/09/21] cefazolin 2 g IV Q8H 06/20/21 [History Last Taken Unknown] ipratropium-albuterol 3 ml INHALATION Q4HWA.RT PRN #0 ml 06/20/21 [Rx Last Taken Unknown] lidocaine HCl [Lidocaine Viscous] 20 ml PO Q3H PRN PRN #0 ml 06/20/21 [Rx Last Taken Unknown] nystatin 500,000 unit PO 4X/DAY 06/20/21 [History Last Taken Unknown] nystatin [Nyamyc] 1 applic TOPICAL BID 06/20/21 [History Last Taken Unknown] warfarin [Jantoven] 3 mg PO DINNER 06/20/21 [History Last Taken Unknown] Allergy/AdvReac Type Severity Reaction Status Date / Time No Known Allergies Allergy Verified 06/11/21 15:09 Surgical History (Updated 06/20/21 @ 17:[address] Yobani Tidwell MD) History of left shoulder replacement Social History (Updated 06/20/21 @ 17:[address] Yobani Tidwell MD) household members: none Smoking Status: Never smoker alcohol intake: never substance use type: does not use ROS Constitutional Constitutional: Denies chills, fever(s) or weight gain ENT HEENT: Denies headache(s), nasal congestion or nasal discharge Cardiovascular Cardiovascular: Denies chest pain or palpitations Respiratory/Chest Respiratory/Chest: Denies cough, excessive phlegm production or shortness of breath with exertion Gastrointestinal Gastrointestinal: Denies abdominal pain, nausea or vomiting Genitourinary Genitourinary: Denies dysuria Musculoskeletal Musculoskeletal: Denies joint pain or joint swelling Integumentary Integumentary: Denies rash or wounds Neurologic Neurologic: Denies focal weakness, numbness or tingling Psychiatric Psychiatric: Denies anxiety, auditory hallucinations, depression, homicidal ideation or suicidal ideation Vital Signs Vital Signs Vital Signs: Weight Weight: 163 kg Body Mass Index (BMI) 57.7 Physical Exam Const alert Constitutional Narrative: Morbidly obese. General Appearance: cooperative HEENT normocephalic Eyes PERRL and EOMs intact bilaterally Neck supple, no JVD and no carotid bruits Resp normal respiratory effort, normal air movement and clear to auscultation bilaterally Cardio regular rate and regular rhythm GI normal to inspection, nondistended, normoactive bowel sounds, non-tender and non-distended Extremity normal capillary refill Extremity Narrative: Right upper extremity PICC line. General Extremity: Negative for edema Skin no rashes or lesions noted General Skin Exam: no breakdown Psych affect normal Appearance: appropriate Results Lab / Micro Data Result Diagrams: 06/21/21 05:13 06/21/21 05:13 Assessment & Plan Assessment/Plan (1) Debility: (2) Fall: QUALIFIERS: Encounter type: initial encounter Qualified Code(s): W19.XXXA - Unspecified fall, initial encounter (3) MSSA bacteremia: (4) Acute on chronic diastolic congestive heart failure: (5) Hypertension: (6) Recurrent deep vein thrombosis: (7) Morbid obesity: (8) Glaucoma: (9) Edema: PLAN: 70 year old male with below past medical history hospitalized for fall secondary to MSSA bacteremia, endocarditis ruled out, complicated by acute on chronic diastolic congestive heart failure, undiagnosed obstructive sleep apnea, admitted to TCU with debility, here for rehabilitation, strengthening, longterm intravenous antbiotics, prior to discharge home alone. * Debility - PT/OT. * Pain - Tylenol 1000mg q6h prn pain (1-5), Oxycodone 5mg q6h prn pain (6-10). * Bowel - Miralax 17gm daily, Senna/colace 1 tablet bid, Dulcolax 10mg pr daily prn. * Adult immunization - Administer prevnar 20, fluzone, covid19 vaccine as appropriate. * DVT prophylaxis - HAS-BLED score 3, high risk of bleeding; Nicolas score 12 high risk of blood clots; INR labile with warfarin, stop warfarin, rx Xarelto 10mg daily. * Sore throat - BMX 20ml q3h prn. * MSSA bacteremia - Cefazolin 2gm iv q8h thru 07/14/2021. * Chronic diastolic congestive heart failure - Furosemide 40mg daily. * Shortness of breath - Duoneb 3ml q4h prn. * Glaucoma - Latanoprost 0.005% 1gtt ou qhs. * Thrush - Nystatin 500,000 units 4x/day thru 06/23/2021. * Tinea Corporis - Nystatin powder topical bid. * Hypokalemia - KCL 10meq daily. * Recurrent DVT - INR labile with warfarin, stop warfarin, rx Xarelto 10mg daily.
[2021-06-20 17:33] VITALS: BP 128/90; PULSE 102; RESP 18; TEMP 36.6; O2SAT 95
[2021-06-20] MEDS: NYSTATIN 500,000 UNIT/5 ML UDC 500000 UNIT PO ×2 (19:02→21:49)
[2021-06-20] MEDS: Rivaroxaban 10 MG Tablet PO (19:03)
[2021-06-20] MEDS: Senna/Docusate Sodium 1 Tablet PO (19:03)
[2021-06-20 21:00] VITALS: PULSE 102; RESP 14; RESP 26; O2SAT 95
[2021-06-20] MEDS: Latanoprost 0.005% 1 Bottle 1 DRP EACH EYE (21:49)
[2021-06-20] MEDS: Cefazolin 2 GM in 0.9% Normal Saline 100 ML IV (21:50)
[2021-06-20 23:37] VITALS: PULSE 96
[2021-06-21 00:05] VITALS: PULSE 98; RESP 14; RESP 17; O2SAT 94
[2021-06-21] MEDS: Furosemide 40 MG Tablet PO (05:17)
[2021-06-21] MEDS: NYSTATIN 500,000 UNIT/5 ML UDC 500000 UNIT PO ×4 (05:17→20:01)
[2021-06-21] MEDS: Potassium Chloride Oral Tablet 10 MEQ PO (05:17)
[2021-06-21] MEDS: Polyethylene Glycol 3350 17 GM PACKET PO (05:17)
[2021-06-21] MEDS: Cefazolin 2 GM in 0.9% Normal Saline 100 ML IV ×3 (05:17→20:02)
[2021-06-21] MEDS: Senna/Docusate Sodium 1 Tablet PO ×2 (05:17→17:09)
[2021-06-21 05:40] LABS: Absolute Lymphocyte Count 0.48 X10^3/uL (0.83-4.51); Absolute Neutrophil Count 13.5 X10^3/uL (2.0-7.7); Basophil# 0.04 X10^3/uL; Basophil% 0.2 % (0-1); Eosinophil# 0.11 X10^3/uL; Eosinophils% 0.7 % (0-5); Hematocrit 38.4 % (40-54); Hemoglobin 12.2 g/dL (13.0-16.5); Lymphocyte # 0.48 X10^3/ul (0.83-4.51); Mean Corp Hgb Conc 31.8 g/dL (32-36); Mean Corpuscular Hgb 25.8 pg (27.0-32.0); Mean Corpuscular Volume 81.4 fL (80-94); Mean Platelet Vol. 9.5 fl (6.2-12.0); Monocyte# 1.27 X10^3/uL; Monocyte% 7.9 % (0-10); NRBC Flagged by Analyzer 0.2 % (0-5); Neutrophil # 13.54 X10^3/uL (2.7-7.7); Neutrophil % 84.2 % (47-70); POSITIVE DIFFERENTIAL YES; Platelet Count 457 K/mm3 (150-450); RBC Distribution Width CV 16.5 % (11.6-14.6); RBC Distribution Width SD 48.8 fl (35.1-43.9); Red Blood Count 4.72 M/mm3 (4.6-6.2); White Blood Count 16.1 K/mm3 (4.4-11.0)
[2021-06-21 06:00] LABS: Anion Gap 1 (5-15); BUN 34 mg/dL (7-18); Calcium,Total 10.7 mg/dL (8.5-10.1); Chloride 100 mmol/L (98-107); Creatinine, Serum 0.97 mg/dL (0.70-1.30); Differential Indicated SCAN CRITERIA MET; EST Glomerular Filtration Rate 81 mL/min (>60); Est Glom Filt Rate - Afr Amer 98 mL/min (>60); Estimated Creatinine Clearance 64.86 ml/min; Glucose 226 mg/dL (74-106); Potassium 4.3 mmol/L (3.5-5.1); Sodium Level 135 mmol/L (136-145)
[2021-06-21 06:02] LABS: Anisocytosis 1+
[2021-06-21 07:50] VITALS: O2SAT 94
[2021-06-21] MEDS: Tuberculin,Purif.prot.deriv. 50 TU/ML Vial 0.1 ML ID (10:00)
[2021-06-21 11:30] VITALS: O2SAT 93
--- NOTE | 2021-06-21 13:01 | PCM.PN.ID ---
Physical Exam Narrative Feeling ok, no fever, no n/v/d. Const alert and no apparent distress General Appearance: cooperative Resp normal air movement and clear to auscultation bilaterally Cardio regular rate and regular rhythm GI soft to palpation, non-tender and non-distended Extremity General Extremity: edema Skin Skin Narrative: LLE wrapped ID ID: Route of nutrition/ use of supplements: [] Nutritional Intake: [] IV Site: [] Franco Catheter: [] Assessment & Plan Assessment/Plan (1) MSSA bacteremia: PLAN: MSSA bacteremia. TTE showed no veg but poor quality study. No veg seen on SHLOMO 06/16. Had some L shoulder pain with prior replacement there; improved. 06/16 bcx neg. Cont cefazolin. Plan is for 4 weeks total cefazolin with weekly bmp and cbc, stop date 07/14/21. Will follow.
[2021-06-21] MEDS: 0.9% Saline Lock 10 ML Syringe IV (13:13)
--- NOTE | 2021-06-21 14:12 | WOUNDNOTE ---
wound photo: left posterior lower leg
[2021-06-21 15:16] VITALS: BP 116/68; PULSE 105; RESP 19; TEMP 36.6; O2SAT 93
--- NOTE | 2021-06-21 15:43 | CHAPLAIN ---
Type of Pastoral Visit ___ Initial Visit ___ Follow-up Visit ___ On-call Visit ___ General Patient Visit ___ Spiritual Assessment ___ Family Conference ___ Bereavement ___ Rapid Response ___ Code Blue ___ Other (describe below) Pastoral Care Referral From ___ Patient ___ Family ___ Nurse ___ Physician ___ Implementation Consultant ___ Investigator Internal Revenue ___ Other (describe below) Sacrament/Intervention ___ Active listening ___ Anointing ___ Sikh ___ Bereavement ___ Communion ___ Mckenzie exploration ___ ___ Life review ___ Prayer ___ Reconciliation ___ Sacrament of Sick ___ Supportive presence ___ Wedding ___ Other (describe below) Pastoral Comments patient is asleep and does not awaken to knock on the door
--- NOTE | 2021-06-21 16:55 | CASEMGMT ---
Social Work SW met wit pt and completed initial assessment. Pt wishes to have his niece be primary contact and remain involved in updates/DC plans. Chart reflects. Discussed code status with pt and assisted in completing MOLST form. Pt wishes for full code with intubation. MOLST form communicated for physician and placed on chart. SW explained Medicare benefit and pt responsibility to contact secondary insurance to assure copay coverage. Pt is uncertain of d/c plan at this time as pt lives at home alone and does not have assistance. Pt states he has been struggling at home to take care of himself and his home. Phone call received from pt niece/HCPOA who confirms pt home is in poor living condition and returning home may not be in pt best interest. MIMI will continue to follow. AQUILINO Billy
[2021-06-21] MEDS: Rivaroxaban 10 MG Tablet PO (17:09)
--- NOTE | 2021-06-21 18:18 | NURSING ---
Oral mucosa, tongue and lips are cracked, ulcerated, coated and bleeding. Dr. Tidwell assessed pt this evening and N.O. bacterial culture for MRSA, C&S, gram stain, and viral culture for HSV. Pt swabbed and specimens sent to lab, tolerated well.
[2021-06-21 18:57] LABS: M R Staph aureus DNA By PCR Negative (Negative); Probe Check PASS; Specimen Processing Control PASS; Staph aureus DNA By PCR NEGATIVE (Negative)
[2021-06-21] MEDS: Latanoprost 0.005% 1 Bottle 1 DRP EACH EYE (20:01)
[2021-06-21 20:40] VITALS: PULSE 102; RESP 12; RESP 24; O2SAT 96
[2021-06-21] MEDS: Ipratropium/Albuterol Sulfate 3 ML AMPUL.NEB INHALATION (20:40)
[2021-06-22] MEDS: Polyethylene Glycol 3350 17 GM PACKET PO (04:51)
[2021-06-22] MEDS: NYSTATIN 500,000 UNIT/5 ML UDC 500000 UNIT PO ×4 (04:52→21:56)
[2021-06-22] MEDS: Senna/Docusate Sodium 1 Tablet PO ×2 (04:52→18:16)
[2021-06-22] MEDS: Potassium Chloride Oral Tablet 10 MEQ PO (04:52)
[2021-06-22] MEDS: Furosemide 40 MG Tablet PO (04:52)
[2021-06-22] MEDS: Cefazolin 2 GM in 0.9% Normal Saline 100 ML IV ×3 (04:53→21:49)
[2021-06-22 04:55] VITALS: BP 166/84; PULSE 92; O2SAT 98
[2021-06-22] MEDS: 0.9% Saline Lock 10 ML Syringe IV ×2 (13:26→21:49)
[2021-06-22] MEDS: COVID-19 VACC, MRNA(PFIZER)/PF 30 MCG/0.3 ML SYRINGE IM (13:52)
--- NOTE | 2021-06-22 13:57 | NURSING ---
PT GIVEN FIRST DOSE OF PFIZER TODAY IN LEFT DELT. PT TOLERATED WELL. WILL CONTINUE TO MONITOR.
[2021-06-22 14:10] VITALS: BP 147/96; PULSE 97; RESP 14; TEMP 35.9; O2SAT 100
--- NOTE | 2021-06-22 15:02 | CHAPLAIN ---
Type of Pastoral Visit ___ Initial Visit _x__ Follow-up Visit ___ On-call Visit ___ General Patient Visit ___ Spiritual Assessment ___ Family Conference ___ Bereavement ___ Rapid Response ___ Code Blue ___ Other (describe below) Pastoral Care Referral From _x__ Patient ___ Family ___ Nurse ___ Physician ___ Recreational Vehicle Repairer ___ Dietetic Aide ___ Other (describe below) Sacrament/Intervention _x__ Active listening ___ Anointing ___ Jain ___ Bereavement ___ Communion ___ Mckenzie exploration ___ ___ Life review _x__ Prayer ___ Reconciliation ___ Sacrament of Sick _x__ Supportive presence ___ Wedding ___ Other (describe below) Pastoral Comments patient is welcoming and able to answer questions; however pt has difficulty keeping eyes open and being focused on conversation; pt states his need to find a new living situation; pt is open to spiritual care and prayer support;
[2021-06-22] MEDS: Rivaroxaban 10 MG Tablet PO (18:16)
[2021-06-22 21:25] VITALS: PULSE 101; RESP 18; O2SAT 99
[2021-06-22] MEDS: BMX LIQUID 180 ML 20 ML PO (21:47)
[2021-06-22] MEDS: Latanoprost 0.005% 1 Bottle 1 DRP EACH EYE (21:48)
[2021-06-22] MEDS: oxyCODONE 5 MG Tablet PO (21:48)
[2021-06-22] MEDS: Menthol/Lanolin/Calamine/Znox 113 GM Tube 1 APPLIC TOPICAL (21:56)
[2021-06-23] MEDS: BMX LIQUID 180 ML 20 ML PO ×3 (05:44→22:07)
[2021-06-23] MEDS: Senna/Docusate Sodium 1 Tablet PO ×2 (05:44→17:52)
[2021-06-23] MEDS: NYSTATIN 500,000 UNIT/5 ML UDC 500000 UNIT PO ×3 (05:44→17:47)
[2021-06-23] MEDS: Potassium Chloride Oral Tablet 10 MEQ PO (05:44)
[2021-06-23] MEDS: Furosemide 40 MG Tablet PO (05:44)
[2021-06-23] MEDS: Polyethylene Glycol 3350 17 GM PACKET PO (05:45)
[2021-06-23] MEDS: Cefazolin 2 GM in 0.9% Normal Saline 100 ML IV ×3 (05:55→22:10)
[2021-06-23] MEDS: Menthol/Lanolin/Calamine/Znox 113 GM Tube 1 APPLIC TOPICAL ×2 (05:59→18:03)
[2021-06-23 09:50] VITALS: PULSE 99; RESP 18; O2SAT 96
[2021-06-23] MEDS: Bisacodyl 5 MG Tablet 10 MG PO (09:50)
--- NOTE | 2021-06-23 10:43 | CASEMGMT ---
Social Work IDT met with patient and héctor for care plan meeting. Discussed patient's progress in PT/OT/ST and nursing. ST to eval today. PT/OT is cotreating currently. Pt is currently arielle lift for staff or x2-3 assist with therapy. Explained Medicare benefit. Encouraged to contact secondary insurance to ensure copay coverage. Pt is on IV ATB Q8 until 4/6, using a bipap and new O2. Pt lives at home alone. IDT recommending SNF at [place] until safe and independent to return home. Explained financial liability for SNF - private pay for Medicaid. Provided SNF list with Medicare data. Niece stated pt has long-term care insurance. Explained that would be on a reimbursement basis with the SNFs. Encouraged niece to contact that policy to get the specifics and to know if there will still be a balance. Explained SW to follow but will assist further once pt has a few more weeks of therapy and IVs are done. It would be too far in advance to contact SNFs now since pt's levels are anticiapting to change. Niece expressed understanding and will contact this worker with any questions. SW to continue to follow. Alicia Cummins, CASCADE OPERATOR YOUTH SUPPORT WORKER
--- NOTE | 2021-06-23 10:55 | NURSING ---
Addendum entered by Les Sanchez 06/23/21 11:52: OFFICE CALLED BACK AND STATED THEY ARE NO LONGER AFFILIATED WITH [facility] AND THAT HE IS CLOSING HIS OFFICE IN JULY. NOTE LEFT FOR AND RN AWARE. Original Note: CALL MADE TO OFFICE TO SEE IF HE WOULD COME IN TO SEE PT. NO ANSWER,LEFT MESSAGE. RN AWARE
[2021-06-23 11:11] VITALS: O2SAT 95
[2021-06-23] MEDS: 0.9% Saline Lock 10 ML Syringe IV ×2 (13:26→22:14)
[2021-06-23] MEDS: oxyCODONE 5 MG Tablet PO (14:22)
[2021-06-23 16:00] VITALS: BP 133/61; PULSE 96; RESP 12; TEMP 36.4; O2SAT 95
[2021-06-23] MEDS: Rivaroxaban 10 MG Tablet PO (17:47)
--- NOTE | 2021-06-23 18:07 | NURSING ---
CALLED AND TALKED TO FROM [facility] AND EXPLAINED PT CONDITION AND HIS MOUTH. DR RANDLE STATED HE WOULD SEE PT BUT IT HAS TO BE IN HIS OFFICE DUE TO BILLING, ETC REASONS. RN TALKED TO RADHA REYNA AND STATED RADHA SAID IT WAS OK TO SET UP [facility]SPORT WHEN APPOINTMENT IS MADE.
[2021-06-23] MEDS: Latanoprost 0.005% 1 Bottle 1 DRP EACH EYE (22:09)
[2021-06-23 22:36] VITALS: BP 117/69; PULSE 112; RESP 24; TEMP 37.5; O2SAT 94
--- NOTE | 2021-06-23 22:37 | NURSING ---
Addendum entered by Li Benavides 06/24/21 03:40: New orders received. UA C&S, CBC, BMP, COVID, Resp. Panel, Chest X-ray, 1,000 mL bolus then 100 mL/hr of Normal saline. Original Note: Patient very drowsy. Hard to arouse. Will answer questions, but patient falls back to sleep while talking. Can only answer short yes/no questions. Vitals obtained as noted in chart. RN updated. Dr. Tidwell paged and updated.
[2021-06-23 22:41] LABS: Bedside Glucose 229 mg/dL (74-106)
--- NOTE | 2021-06-23 23:20 | RAD_ITS ---
HISTORY: fever EXAMINATION/TECHNIQUE: XR Chest 2 Views AP and lateral views COMPARISON: AP chest x-ray from 06/14/21 FINDINGS: Evaluation is limited secondary to poor penetration, large body habitus and portable imaging technique. LINES/DEVICES: None. LUNGS: No overt pulmonary edema. Hazy and crowded bibasilar pulmonary opacities. Trace fluid along right minor fissure. No pneumothorax detected. MEDIASTINUM AND CARDIOVASCULAR STRUCTURES: Heart size within normal limits for imaging technique. Central airways and mediastinal contour are unremarkable. BONES AND SOFT TISSUES: Status post left shoulder arthroplasty. RAD/Chest PA and Lateral IMPRESSION: Bibasilar atelectasis versus infiltrate. Trace right pleural effusion. at 0040 Reported and signed by: Frank Yun MD Electronically Signed: Frank Yun MD at 0:39 EDT ,
[2021-06-23 23:38] LABS: Absolute Neutrophil Count 11.5 X10^3/uL (2.0-7.7); Basophil# 0.04 X10^3/uL; Basophil% 0.3 % (0-1); Eosinophil# 0.13 X10^3/uL; Hematocrit 35.3 % (40-54); Hemoglobin 11.7 g/dL (13.0-16.5); Lymphocyte % 3.7 % (19-41); Mean Corp Hgb Conc 33.1 g/dL (32-36); Mean Corpuscular Hgb 26.7 pg (27.0-32.0); Mean Corpuscular Volume 80.6 fL (80-94); Mean Platelet Vol. 9.7 fl (6.2-12.0); Monocyte# 0.96 X10^3/uL; Monocyte% 7.1 % (0-10); NRBC Flagged by Analyzer 0 % (0-5); Neutrophil # 11.54 X10^3/uL (2.7-7.7); Neutrophil % 85.2 % (47-70); POSITIVE DIFFERENTIAL YES; Platelet Count 422 K/mm3 (150-450); RBC Distribution Width CV 16.2 % (11.6-14.6); RBC Distribution Width SD 47.2 fl (35.1-43.9); Red Blood Count 4.38 M/mm3 (4.6-6.2); White Blood Count 13.5 K/mm3 (4.4-11.0)
[2021-06-23 23:43] LABS: Anion Gap 3 (5-15); BUN 36 mg/dL (7-18); BUN/Creat Ratio 38.1 RATIO (10-20); Calcium,Total 11.6 mg/dL (8.5-10.1); Chloride 100 mmol/L (98-107); Creatinine, Serum 0.95 mg/dL (0.70-1.30); EST Glomerular Filtration Rate 84 mL/min (>60); Est Glom Filt Rate - Afr Amer 101 mL/min (>60); Estimated Creatinine Clearance 66.23 ml/min; Glucose 230 mg/dL (74-106); Potassium 4.5 mmol/L (3.5-5.1); Sodium Level 135 mmol/L (136-145)
[2021-06-23 23:51] LABS: Differential Indicated SCAN CRITERIA MET
[2021-06-23 23:57] LABS: Mucous, Urine 0 SEEN /hpf (<or=2+); Squamous Epithelial Cells - UA 0 SEEN /hpf (0-5)
[2021-06-23 23:59] LABS: Color, Urine Yellow (Yellow); Glucose, Dipstick Normal (Normal); Ketone-Dipstick 5 mg/dl (Negative); Leukocyte Esterase-Dipstick 25 /ul (Negative); Nitrite-Dipstick Negative (Negative); Occult Blood-Urine 250 /ul (Negative); Protein-Dipstick 15 mg/dl (Negative); Urine Clarity Clear (Clear); Urine Urobilinogen 8 mg/dl (Normal)
[2021-06-24 00:01] LABS: Urine Bilirubin Dipstick 1 mg/dL (Negative)
[2021-06-24 00:02] LABS: Anisocytosis 1+
[2021-06-24 00:09] LABS: Bacteria 1+ /hpf (None Seen); Hyaline Cast 0-5 SEEN /lpf (0-5); Red Blood Cells-Urine 10-25 SEEN /hpf (0-5); White Blood Cells 0-5 SEEN /hpf (0-5)
[2021-06-24] MEDS: 0.9% Normal Saline 1,000 ML 999 ML IV (00:30)
[2021-06-24] MEDS: 0.9% Normal Saline 1,000 ML 100 ML IV ×2 (01:55→13:24)
[2021-06-24] MEDS: Polyethylene Glycol 3350 17 GM PACKET PO (05:50)
[2021-06-24] MEDS: BMX LIQUID 180 ML 20 ML PO (05:50)
[2021-06-24] MEDS: Potassium Chloride Oral Tablet 10 MEQ PO (05:50)
[2021-06-24] MEDS: Furosemide 40 MG Tablet PO (05:50)
[2021-06-24] MEDS: Senna/Docusate Sodium 1 Tablet PO ×2 (05:50→16:51)
[2021-06-24] MEDS: Cefazolin 2 GM in 0.9% Normal Saline 100 ML IV ×3 (05:54→21:56)
[2021-06-24] MEDS: Menthol/Lanolin/Calamine/Znox 113 GM Tube 1 APPLIC TOPICAL ×2 (05:57→16:51)
[2021-06-24 06:02] VITALS: TEMP 37.7
[2021-06-24 08:00] VITALS: O2SAT 94
[2021-06-24 08:51] LABS: ALB/GLOB Ratio 0.2 RATIO (0.9-2.4); AST(SGOT) 67 U/L (15-37); Alanine Aminotransfer ALT/SGPT 35 U/L (16-61); Albumin, Serum 1.1 g/dL (3.2-5.0); Alkaline Phosphatase 178 U/L (45-117); Anion Gap 3 (5-15); BUN 32 mg/dL (7-18); BUN/Creat Ratio 33.7 RATIO (10-20); Calcium,Total 11.5 mg/dL (8.5-10.1); Chloride 101 mmol/L (98-107); Creatinine, Serum 0.95 mg/dL (0.70-1.30); EST Glomerular Filtration Rate 83 mL/min (>60); Est Glom Filt Rate - Afr Amer 101 mL/min (>60); Estimated Creatinine Clearance 66.23 ml/min; Globulin 5.7 g/dL (2.2-4.2); Glucose 231 mg/dL (74-106); Potassium 4.4 mmol/L (3.5-5.1); Protein, Total 6.8 g/dL (6.4-8.2); Sodium Level 135 mmol/L (136-145)
[2021-06-24 09:50] LABS: Hemoglobin A1c 7.7 % (3.8-5.6)
[2021-06-24] MEDS: Acetaminophen 500 MG Tablet 1000 MG PO (11:52)
--- NOTE | 2021-06-24 13:32 | PCM.PN.RX ---
Progress Note - Pharmacy Subjective: [] TCU Admission Objective: Allergies No Known Allergies Allergy (Verified 06/11/21 15:09) Current Medications Generic Name Dose Route Start Last Admin Trade Name Peggy PRN Reason Stop Dose Admin Acetaminophen 1,000 mg 06/20/21 17:49 06/24/21 11:52 Acetaminophen 500 Mg Tablet PO 1,000 mg Q6H PRN PRN Administration Pain Score 1-5 Albuterol/Ipratropium 3 ml 06/20/21 19:03 06/21/21 20:40 Ipratropium/Albuterol Sulfate 3 Ml Ampul.Neb INHALATION 3 ml Q4H PRN PRN Administration SHORTNESS OF BREATH Bisacodyl 10 mg 06/20/21 16:53 Bisacodyl 10 Mg Suppository RC DAILY PRN Constipation Bisacodyl 10 mg 06/23/21 07:50 06/23/21 09:50 Bisacodyl 5 Mg Tablet PO 10 mg X1 PRN Administration Constipation COVID-19 Vaccine mRNA LNP-S (PFR) (PF) 30 mcg 07/13/21 11:00 Covid-19 Vacc, Mrna(Pfizer)/Pf 30 Mcg/0.3 Ml Syringe IM 07/13/21 11:01 .ONCE ONE Calamine/Phenol 1 applic 06/22/21 18:00 06/24/21 05:57 Menthol/Lanolin/Calamine/Znox 113 Gm Tube TOPICAL 1 applic BID JUSTINE Administration Protocol Furosemide 40 mg 06/21/21 06:00 06/24/21 05:50 Furosemide 40 Mg Tablet PO 40 mg DAILY JUSTINE Administration Cefazolin Sodium 2 gm/ Sodium 110 mls @ 150 mls/hr 06/20/21 22:00 06/24/21 13:20 Chloride IV 07/14/21 23:55 150 mls/hr Q8 JUSTINE Administration Sodium Chloride 250 mls @ 15 mls/hr 06/23/21 06:47 06/23/21 14:33 IV 0 mls/hr .[id number] PRN Infusion Saline Flush Sodium Chloride 250 mls @ 15 mls/hr 06/23/21 06:47 IV .[id number] PRN Additional IVPB Infusion Sodium Chloride 1,000 mls @ 100 mls/hr 06/24/21 00:38 06/24/21 13:24 IV 100 mls/hr .Q10H JUSTINE Administration Latanoprost 1 drp 06/20/21 22:00 06/23/21 22:09 Latanoprost 0.005% 1 Bottle EACH EYE 1 drp QHS JUSTINE Administration Lidocaine/Diphenhydr/Alum/Mg/Simeth 20 ml 06/20/21 16:46 06/24/21 05:50 Bmx Liquid 180 Ml PO 20 ml Q3H PRN PRN Administration oral burning pain Nystatin 1 applic 06/21/21 06:00 06/24/21 09:59 Nystatin Powder 30 Gm Bottle TOPICAL 1 applic BID JUSTINE Administration Protocol Oxycodone HCl 5 mg 06/20/21 17:49 06/23/21 14:22 Oxycodone 5 Mg Tablet PO 5 mg Q6H PRN PRN Administration Pain Score 6-10 Polyethylene Glycol 17 gm 06/21/21 06:00 06/24/21 05:50 Polyethylene Glycol 3350 17 Gm Packet PO 17 gm DAILY JUSTINE Administration Potassium Chloride 10 meq 06/21/21 06:00 06/24/21 05:50 Potassium Chloride Oral Tablet 10 Meq PO 10 meq DAILY JUSTINE Administration Rivaroxaban 10 mg 06/20/21 18:33 06/23/21 17:47 Rivaroxaban 10 Mg Tablet PO 10 mg DINNER JUSTINE Administration Senna/Docusate Sodium 1 tablet 06/20/21 18:00 06/24/21 05:50 Senna/Docusate Sodium 1 Tablet PO 1 tablet BID JUSTINE Administration Sodium Chloride 10 - 40 ml 06/20/21 16:56 06/23/21 22:14 0.9% Saline Lock 10 Ml Syringe IV 20 ml UD PRN Administration SALINE FLUSH Sodium Chloride 250 ml 06/21/21 00:04 0.9% Normal Saline 250 Ml Iv.Soln. IV DAILY PRN PRN SALINE FLUSH Sodium Chloride 10 - 40 ml 06/21/21 17:00 0.9% Saline Lock 10 Ml Syringe IV UD PRN Closed End PICC Flush Sodium Chloride 10 - 40 ml 06/21/21 17:00 0.9 % Nacl (Sterile) Posiflush 10 Ml IV UD PRN Port access or dressing change Tuberculin PPD 0.1 ml 06/28/21 10:00 Tuberculin,Purif.Prot.Deriv. 50 Tu/Ml Vial ID 06/28/21 10:01 X1 ONE Problem List (Last Reviewed 06/20/21 @ 17:[address] Yobani Tidwell MD) Edema (Acute) Glaucoma (Acute) Morbid obesity (Acute) Recurrent deep vein thrombosis (Acute) Hypertension (Chronic) Acute on chronic diastolic congestive heart failure (Chronic) MSSA bacteremia (Acute) Debility (Acute) Fall (Acute) Vital Signs Temp Pulse Resp BP Pulse Ox 99.8 F H 112 H 24 H 117/69 94 06/24/21 06:02 06/23/21 22:36 06/23/21 22:36 06/23/21 22:36 06/24/21 08:00 Oxygen Flow Rate (L/min) 4.5 Oxygen Delivery Method Nasal Cannula Weight: 162.93 kg Body Mass Index (BMI) 57.7 Sodium 135 mmol/L (136-145) L 06/24/21 08:25 Potassium 4.4 mmol/L (3.5-5.1) 06/24/21 08:25 Chloride 101 mmol/L (98-107) 06/24/21 08:25 Carbon Dioxide 31.0 mmol/L (21.0-32.0) 06/24/21 08:25 Anion Gap 3 (5-15) L 06/24/21 08:25 BUN 32 mg/dL (7-18) H 06/24/21 08:25 Creatinine 0.95 mg/dL (0.70-1.30) 06/24/21 08:25 Est GFR (MDRD) Af Amer 101 mL/min (>60) 06/24/21 08:25 Est GFR (MDRD) Non-Af 83 mL/min (>60) 06/24/21 08:25 BUN/Creatinine Ratio 33.7 RATIO (10-20) H 06/24/21 08:25 Glucose 231 mg/dL (74-106) H 06/24/21 08:25 Assessment/Plan: 1) Pain: Acetaminophen 1000mg po q6h prn for pain 1-5, Oxycodone 5mg po q6h prn for pain 6-10. Please continue to monitor prn usage and for signs/symptoms of increased pain. --PRN note: There has been 1 administration of Acetaminophen and 2 administrations of Oxycodone to date. 2) Hypokalemia: Potassium 10meq po daily. Pt's last K+ (06/24/21) was within normal limits at 4.4. Please continue to monitor labs. 3) CHF: Furosemide 40mg po daily. Pt's Na is 135, and K+ is 4.4. Please continue to monitor labs. Pt's average BP is 134.5/78. Please continue to monitor pt's bp. 4) DVT prophylaxis: Xarelto 10mg po with dinner. Warfarin recently dc'd due to inconsistent INR. Please continue to monitor for signs/symptoms of bruising/bleeding and/or dvt 5) MSSA Bacteremia: Cefazolin 2gm IV q8h thru 07/14/2021. Infectious disease is following pt. Please continue to monitor for signs/symptoms of worsening infection. Psychotropic Medications: none Unnecessary Medications: none Bowel Regimen: Bisacodyl 10mg suppository daily prn for constipation, Bisacodyl 10mg po x1 prn for constipation, Miralax 17gm po daily, Senna/Docusate 1 tablet po bid. Please continue to monitor prn usage and for signs/symptoms of constipation/diarrhea --PRN note: There has been 1 administration of oral Bisacodyl to date Date of Note:: 06/24/21
--- NOTE | 2021-06-24 13:39 | PCM.PN.RX ---
Progress Note - Pharmacy Subjective: TCU ADMISSION Objective: Allergies No Known Allergies Allergy (Verified 06/11/21 15:09) Current Medications Generic Name Dose Route Start Last Admin Trade Name Chaitanyaq PRN Reason Stop Dose Admin Acetaminophen 1,000 mg 06/20/21 17:49 06/24/21 11:52 Acetaminophen 500 Mg Tablet PO 1,000 mg Q6H PRN PRN Administration Pain Score 1-5 Albuterol/Ipratropium 3 ml 06/20/21 19:03 06/21/21 20:40 Ipratropium/Albuterol Sulfate 3 Ml Ampul.Neb INHALATION 3 ml Q4H PRN PRN Administration SHORTNESS OF BREATH Bisacodyl 10 mg 06/20/21 16:53 Bisacodyl 10 Mg Suppository RC DAILY PRN Constipation Bisacodyl 10 mg 06/23/21 07:50 06/23/21 09:50 Bisacodyl 5 Mg Tablet PO 10 mg X1 PRN Administration Constipation COVID-19 Vaccine mRNA LNP-S (PFR) (PF) 30 mcg 07/13/21 11:00 Covid-19 Vacc, Mrna(Pfizer)/Pf 30 Mcg/0.3 Ml Syringe IM 07/13/21 11:01 .ONCE ONE Calamine/Phenol 1 applic 06/22/21 18:00 06/24/21 05:57 Menthol/Lanolin/Calamine/Znox 113 Gm Tube TOPICAL 1 applic BID JUSTINE Administration Protocol Furosemide 40 mg 06/21/21 06:00 06/24/21 05:50 Furosemide 40 Mg Tablet PO 40 mg DAILY JUSTINE Administration Cefazolin Sodium 2 gm/ Sodium 110 mls @ 150 mls/hr 06/20/21 22:00 06/24/21 13:20 Chloride IV 07/14/21 23:55 150 mls/hr Q8 JUSTINE Administration Sodium Chloride 250 mls @ 15 mls/hr 06/23/21 06:47 06/23/21 14:33 IV 0 mls/hr .[id number] PRN Infusion Saline Flush Sodium Chloride 250 mls @ 15 mls/hr 06/23/21 06:47 IV .[id number] PRN Additional IVPB Infusion Sodium Chloride 1,000 mls @ 100 mls/hr 06/24/21 00:38 06/24/21 13:24 IV 100 mls/hr .Q10H JUSTINE Administration Latanoprost 1 drp 06/20/21 22:00 06/23/21 22:09 Latanoprost 0.005% 1 Bottle EACH EYE 1 drp QHS JUSTINE Administration Lidocaine/Diphenhydr/Alum/Mg/Simeth 20 ml 06/20/21 16:46 06/24/21 05:50 Bmx Liquid 180 Ml PO 20 ml Q3H PRN PRN Administration oral burning pain Nystatin 1 applic 06/21/21 06:00 06/24/21 09:59 Nystatin Powder 30 Gm Bottle TOPICAL 1 applic BID JUSTINE Administration Protocol Oxycodone HCl 5 mg 06/20/21 17:49 06/23/21 14:22 Oxycodone 5 Mg Tablet PO 5 mg Q6H PRN PRN Administration Pain Score 6-10 Polyethylene Glycol 17 gm 06/21/21 06:00 06/24/21 05:50 Polyethylene Glycol 3350 17 Gm Packet PO 17 gm DAILY JUSTINE Administration Potassium Chloride 10 meq 06/21/21 06:00 06/24/21 05:50 Potassium Chloride Oral Tablet 10 Meq PO 10 meq DAILY JUSTINE Administration Rivaroxaban 10 mg 06/20/21 18:33 06/23/21 17:47 Rivaroxaban 10 Mg Tablet PO 10 mg DINNER JUSTINE Administration Senna/Docusate Sodium 1 tablet 06/20/21 18:00 06/24/21 05:50 Senna/Docusate Sodium 1 Tablet PO 1 tablet BID JUSTINE Administration Sodium Chloride 10 - 40 ml 06/20/21 16:56 06/23/21 22:14 0.9% Saline Lock 10 Ml Syringe IV 20 ml UD PRN Administration SALINE FLUSH Sodium Chloride 250 ml 06/21/21 00:04 0.9% Normal Saline 250 Ml Iv.Soln. IV DAILY PRN PRN SALINE FLUSH Sodium Chloride 10 - 40 ml 06/21/21 17:00 0.9% Saline Lock 10 Ml Syringe IV UD PRN Closed End PICC Flush Sodium Chloride 10 - 40 ml 06/21/21 17:00 0.9 % Nacl (Sterile) Posiflush 10 Ml IV UD PRN Port access or dressing change Tuberculin PPD 0.1 ml 06/28/21 10:00 Tuberculin,Purif.Prot.Deriv. 50 Tu/Ml Vial ID 06/28/21 10:01 X1 ONE Problem List (Last Reviewed 06/20/21 @ 17:[address] Yobani Tidwell MD) Edema (Acute) Glaucoma (Acute) Morbid obesity (Acute) Recurrent deep vein thrombosis (Acute) Hypertension (Chronic) Acute on chronic diastolic congestive heart failure (Chronic) MSSA bacteremia (Acute) Debility (Acute) Fall (Acute) Vital Signs Temp Pulse Resp BP Pulse Ox 99.8 F H 112 H 24 H 117/69 94 06/24/21 06:02 06/23/21 22:36 06/23/21 22:36 06/23/21 22:36 06/24/21 08:00 Oxygen Flow Rate (L/min) 4.5 Oxygen Delivery Method Nasal Cannula Weight: 162.93 kg Body Mass Index (BMI) 57.7 Sodium 135 mmol/L (136-145) L 06/24/21 08:25 Potassium 4.4 mmol/L (3.5-5.1) 06/24/21 08:25 Chloride 101 mmol/L (98-107) 06/24/21 08:25 Carbon Dioxide 31.0 mmol/L (21.0-32.0) 06/24/21 08:25 Anion Gap 3 (5-15) L 06/24/21 08:25 BUN 32 mg/dL (7-18) H 06/24/21 08:25 Creatinine 0.95 mg/dL (0.70-1.30) 06/24/21 08:25 Est GFR (MDRD) Af Amer 101 mL/min (>60) 06/24/21 08:25 Est GFR (MDRD) Non-Af 83 mL/min (>60) 06/24/21 08:25 BUN/Creatinine Ratio 33.7 RATIO (10-20) H 06/24/21 08:25 Glucose 231 mg/dL (74-106) H 06/24/21 08:25 Assessment/Plan: 1. Pain: Tylenol 1000mg PO Q6h PRN Pain 1-5, Oxycodone 5mg PO Q6h PRN Pain 6-10. Please continue to monitor for increased/decreased pain, PRN medication usage, oversedation, respiratory status. 2. MSSA Bacteremia: Cefazolin 2g IV Q8h through 07/14/21. Please continue to monitor for S/S reinfection, ID following patient. 3. Chronic Diastolic CHF: Lasix 40mg IV Daily. Patient is not currently on an SHELLI-I/ARB or beta qing. Please evaluate if patient qualifies for this therapy. Current vitals are stable at this time (pulse 112, BP 117/69), thank you. 4. Recurrent DVT: Xarelto 10mg PO Daily. Please continue to monitor renal function, S/S bleeding/bruising, S/S recurrent DVT, H/H as clinically indicated. 5. Glaucoma: Xalatan 1 drop OU QHS. Please continue to monitor for disease progression, appropriate follow-up with ophthalmology as clinically indicated. 6. SOB: Duoneb nebulizations 1 Q4h PRN. Please continue to monitor for improvement in symptoms, HR, PRN medication usage. 7. Hypokalemia: KCl 10mEq PO Daily. Please continue to monitor potassium levels (last 4.4 on 06/24). Psychotropic Medications: None Unnecessary Medications: None Bowel Regimen: Miralax 17g PO Daily, Senna/Docusate 1 tab PO BID, Dulcolax 10mg PA Daily PRN, Dulcolax 10mg PO x1 PRN. Please continue to monitor for increased/decreased constipations and/or diarrhea. Date of Note:: 06/24/21
--- NOTE | 2021-06-24 14:36 | NURSING ---
Addendum entered by Za Galvez 06/24/21 17:54: N.O. KUB Addendum entered by Za Galvez 06/24/21 15:18: Moderate amount of brown liquid/diarrhea stool noted. Original Note: Pt increased edema, LUE +3 pitting, pt denies SOB but respirations are 32 and shallow, LS diminished, pt has not had a bm since 06/19. Dr. Tidwell updated and N.O. to stop fluids, 40mg IV lasix x1 dose, and SSE. SSE performed pt tolerated well and was able to withhold most of fluid. Will monitor effectiveness.
[2021-06-24 15:16] VITALS: BP 127/68; PULSE 92; RESP 16; TEMP 36.2; O2SAT 96
[2021-06-24] MEDS: 0.9% Saline Lock 10 ML Syringe IV ×2 (15:29→22:01)
[2021-06-24] MEDS: Furosemide 40 MG/4 ML Vial IV (15:29)
[2021-06-24] MEDS: Bisacodyl 5 MG Tablet 10 MG PO (16:49)
[2021-06-24] MEDS: Rivaroxaban 10 MG Tablet PO (16:50)
--- NOTE | 2021-06-24 18:20 | RAD_ITS ---
EXAM: XR ABDOMEN, 1 VIEW CLINICAL INDICATION: Constipation TECHNIQUE: Frontal supine view of the abdomen/pelvis. This report was created using [employer] report generation technology. COMPARISON: None. FINDINGS: LOWER THORAX: No acute pathology. GASTROINTESTINAL TRACT: Air filled colon can suggest obstipation. Non-obstructive. No bowel or stomach distention. ORGANS: Unremarkable as visualized. No organomegaly. No abnormal calcifications. BONES/JOINTS: No acute pathology. SOFT TISSUES: No acute pathology. RAD/Abdomen Single View IMPRESSION: Air filled colon can suggest obstipation. Electronically Signed: Denzel Cifuentes MD at 19:07 EDT ,
[2021-06-24] MEDS: Electrolyte Solution/Peg's 4000 ML 1000 ML PO (21:55)
[2021-06-24] MEDS: Latanoprost 0.005% 1 Bottle 1 DRP EACH EYE (22:20)
[2021-06-25] MEDS: Furosemide 40 MG Tablet PO (05:32)
[2021-06-25] MEDS: Potassium Chloride Oral Tablet 10 MEQ PO (05:32)
[2021-06-25] MEDS: Senna/Docusate Sodium 1 Tablet PO ×2 (05:32→16:16)
[2021-06-25] MEDS: Fluconazole Suspension 40 MG/ML 35 ML Bottle 200 MG PO (05:33)
[2021-06-25] MEDS: Menthol/Lanolin/Calamine/Znox 113 GM Tube 1 APPLIC TOPICAL ×2 (05:34→16:17)
[2021-06-25] MEDS: Cefazolin 2 GM in 0.9% Normal Saline 100 ML IV ×3 (05:34→22:05)
--- NOTE | 2021-06-25 05:40 | CPS ---
Patient refused use of bipap
[2021-06-25 09:30] VITALS: O2SAT 94
[2021-06-25] MEDS: Acetaminophen 500 MG Tablet 1000 MG PO ×2 (10:21→22:08)
--- NOTE | 2021-06-25 12:07 | CASEMGMT ---
Social Work BIMS and PHQ-9 completed for MDS assessment. Alicia Cummins, PRODUCT DEVELOPMENT ECOLOGIST REAL ESTATE OFFICE MANAGER
--- NOTE | 2021-06-25 12:50 | MDS.RN ---
Completed pain interview for michael 06/27/21.
[2021-06-25] MEDS: 0.9% Saline Lock 10 ML Syringe IV ×2 (13:11→22:08)
[2021-06-25] MEDS: Rivaroxaban 10 MG Tablet PO (16:16)
[2021-06-25 17:00] VITALS: BP 118/69; PULSE 95; RESP 32; TEMP 36.2; O2SAT 95
[2021-06-25] MEDS: Latanoprost 0.005% 1 Bottle 1 DRP EACH EYE (22:04)
[2021-06-25 22:45] VITALS: PULSE 103; RESP 14; RESP 36; O2SAT 97
--- NOTE | 2021-06-26 00:34 | NURSING ---
Respiratory therapist applied Bipap at 10:45pm. Will monitor.
[2021-06-26 02:54] VITALS: BP 114/75; PULSE 88; RESP 32; TEMP 36.1; O2SAT 96
[2021-06-26 04:08] VITALS: PULSE 83; RESP 14; RESP 31; O2SAT 95
[2021-06-26] MEDS: Cefazolin 2 GM in 0.9% Normal Saline 100 ML IV ×3 (04:44→22:39)
[2021-06-26] MEDS: Fluconazole Suspension 40 MG/ML 35 ML Bottle 200 MG PO (04:53)
[2021-06-26] MEDS: Potassium Chloride Oral Tablet 10 MEQ PO (04:54)
[2021-06-26] MEDS: Senna/Docusate Sodium 1 Tablet PO ×2 (04:54→17:53)
[2021-06-26] MEDS: Acetaminophen 500 MG Tablet 1000 MG PO ×3 (04:54→23:10)
[2021-06-26] MEDS: Furosemide 40 MG Tablet PO (04:56)
[2021-06-26] MEDS: Menthol/Lanolin/Calamine/Znox 113 GM Tube 1 APPLIC TOPICAL ×2 (04:56→17:46)
[2021-06-26] MEDS: oxyCODONE 5 MG Tablet PO (08:45)
[2021-06-26 13:20] VITALS: O2SAT 94
[2021-06-26 15:39] VITALS: BP 114/60; PULSE 85; RESP 20; TEMP 35.8; O2SAT 96
[2021-06-26] MEDS: Rivaroxaban 10 MG Tablet PO (17:52)
[2021-06-26] MEDS: Latanoprost 0.005% 1 Bottle 1 DRP EACH EYE (22:36)
--- NOTE | 2021-06-26 23:00 | NURSING ---
BiPAP applied per Kris from pulmonary services. O2 liter flow decreased to 3 lpm. Will continue to monitor.
[2021-06-26 23:15] VITALS: PULSE 90; RESP 14; RESP 18; O2SAT 99
[2021-06-27 01:50] VITALS: PULSE 82; RESP 14; RESP 23; O2SAT 98
--- NOTE | 2021-06-27 03:39 | NURSING ---
Ashok from lab calls w/ critical result. Preliminary aerobic blood culture from left forearm per preliminary report.
[2021-06-27 05:00] VITALS: PULSE 83; RESP 14; RESP 24; O2SAT 92
[2021-06-27] MEDS: Polyethylene Glycol 3350 17 GM PACKET PO (06:02)
[2021-06-27] MEDS: Acetaminophen 500 MG Tablet 1000 MG PO ×3 (06:03→21:36)
[2021-06-27] MEDS: Senna/Docusate Sodium 1 Tablet PO ×2 (06:05→17:18)
[2021-06-27] MEDS: Menthol/Lanolin/Calamine/Znox 113 GM Tube 1 APPLIC TOPICAL ×2 (06:06→17:25)
[2021-06-27] MEDS: Furosemide 40 MG Tablet PO (06:06)
[2021-06-27] MEDS: Cefazolin 2 GM in 0.9% Normal Saline 100 ML IV ×3 (06:06→21:36)
[2021-06-27] MEDS: Fluconazole Suspension 40 MG/ML 35 ML Bottle 200 MG PO (06:07)
[2021-06-27] MEDS: 0.9% Normal Saline 250 ML IV.SOLN. IV (06:19)
[2021-06-27] MEDS: 0.9% Saline Lock 10 ML Syringe IV (06:20)
[2021-06-27 07:30] VITALS: O2SAT 92
[2021-06-27] MEDS: Potassium Chloride Oral Tablet 10 MEQ PO (08:33)
[2021-06-27] MEDS: BMX LIQUID 180 ML 20 ML PO (08:35)
[2021-06-27 08:46] VITALS: PULSE 70; RESP 16; O2SAT 97
--- NOTE | 2021-06-27 11:44 | NURSING ---
dr lee updated on blood glucose levels since admit and A1C, new order to start blood sugar checks ACHS and administer humalog 5 units with meals.
--- NOTE | 2021-06-27 11:45 | NURSING ---
dr lee aware of blood culture results, new order to update dr Gallardo on monday AM
[2021-06-27 11:50] LABS: Bedside Glucose 191 mg/dL (74-106)
[2021-06-27] MEDS: Insulin Lispro 100 UNIT/ML INSULN.PEN SC ×2 (11:56→17:17)
[2021-06-27] MEDS: oxyCODONE 5 MG Tablet PO (14:18)
[2021-06-27 15:41] VITALS: BP 167/67; PULSE 85; RESP 21; TEMP 2.6; TEMP 36.6; O2SAT 97
[2021-06-27 16:16] LABS: Bedside Glucose 160 mg/dL (74-106)
[2021-06-27] MEDS: Rivaroxaban 10 MG Tablet PO (17:17)
[2021-06-27] MEDS: Latanoprost 0.005% 1 Bottle 1 DRP EACH EYE (21:35)
[2021-06-27 21:41] LABS: Bedside Glucose 169 mg/dL (74-106)
[2021-06-27 23:15] VITALS: PULSE 90; RESP 14; RESP 24; O2SAT 95
[2021-06-28 01:50] VITALS: PULSE 82; RESP 14; RESP 26; O2SAT 95
[2021-06-28] MEDS: Acetaminophen 500 MG Tablet 1000 MG PO ×3 (04:59→21:57)
[2021-06-28] MEDS: Polyethylene Glycol 3350 17 GM PACKET PO (04:59)
[2021-06-28] MEDS: Furosemide 40 MG Tablet PO (04:59)
[2021-06-28] MEDS: Fluconazole Suspension 40 MG/ML 35 ML Bottle 200 MG PO (05:00)
[2021-06-28] MEDS: Senna/Docusate Sodium 1 Tablet PO ×2 (05:00→17:24)
[2021-06-28] MEDS: Menthol/Lanolin/Calamine/Znox 113 GM Tube 1 APPLIC TOPICAL ×2 (05:00→17:25)
[2021-06-28] MEDS: Cefazolin 2 GM in 0.9% Normal Saline 100 ML IV ×3 (05:21→22:02)
[2021-06-28 06:31] LABS: Bedside Glucose 138 mg/dL (74-106)
[2021-06-28 07:13] LABS: Absolute Lymphocyte Count 0.39 X10^3/uL (0.83-4.51); Absolute Neutrophil Count 8.4 X10^3/uL (2.0-7.7); Basophil# 0.02 X10^3/uL; Basophil% 0.2 % (0-1); Hematocrit 34.3 % (40-54); Hemoglobin 11.2 g/dL (13.0-16.5); Lymphocyte # 0.39 X10^3/ul (0.83-4.51); Lymphocyte % 3.9 % (19-41); Mean Corp Hgb Conc 32.7 g/dL (32-36); Mean Corpuscular Hgb 26.9 pg (27.0-32.0); Mean Corpuscular Volume 82.5 fL (80-94); Mean Platelet Vol. 9.3 fl (6.2-12.0); Monocyte# 0.74 X10^3/uL; Monocyte% 7.4 % (0-10); NRBC Flagged by Analyzer 0 % (0-5); Neutrophil # 8.44 X10^3/uL (2.7-7.7); POSITIVE DIFFERENTIAL YES; Platelet Count 373 K/mm3 (150-450); RBC Distribution Width CV 16.9 % (11.6-14.6); RBC Distribution Width SD 49.7 fl (35.1-43.9); Red Blood Count 4.16 M/mm3 (4.6-6.2); White Blood Count 9.9 K/mm3 (4.4-11.0)
[2021-06-28 07:14] LABS: Differential Indicated SCAN CRITERIA MET
[2021-06-28 07:37] LABS: Anion Gap 0 (5-15); BUN 41 mg/dL (7-18); BUN/Creat Ratio 42.9 RATIO (10-20); Calcium,Total 11.8 mg/dL (8.5-10.1); Chloride 105 mmol/L (98-107); Creatinine, Serum 0.96 mg/dL (0.70-1.30); EST Glomerular Filtration Rate 83 mL/min (>60); Est Glom Filt Rate - Afr Amer 100 mL/min (>60); Estimated Creatinine Clearance 65.54 ml/min; Glucose 150 mg/dL (74-106); Potassium 4.6 mmol/L (3.5-5.1); Sodium Level 136 mmol/L (136-145)
[2021-06-28] MEDS: Potassium Chloride Oral Tablet 10 MEQ PO (08:06)
[2021-06-28] MEDS: Insulin Lispro 100 UNIT/ML INSULN.PEN SC ×3 (08:07→17:27)
[2021-06-28 09:19] LABS: Mucous, Urine 0 SEEN /hpf (<or=2+)
[2021-06-28 09:20] LABS: Color, Urine Yellow (Yellow); Glucose, Dipstick Normal (Normal); Ketone-Dipstick Negative (Negative); Leukocyte Esterase-Dipstick 25 /ul (Negative); Nitrite-Dipstick Negative (Negative); Occult Blood-Urine 250 /ul (Negative); Protein-Dipstick 30 mg/dl (Negative); Specific Gravity, Urine 1.015 (1.002-1.030); Urine Bilirubin Dipstick Negative (Negative); Urine Clarity Sl. Cloudy (Clear); Urine Urobilinogen Normal (Normal)
[2021-06-28 09:27] LABS: Bacteria 1+ /hpf (None Seen); Red Blood Cells-Urine 25-50 SEEN /hpf (0-5); Squamous Epithelial Cells - UA 0-5 SEEN /hpf (0-5); White Blood Cells 0-5 SEEN /hpf (0-5)
[2021-06-28 10:18] VITALS: O2SAT 98
--- NOTE | 2021-06-28 10:21 | NURSING ---
Dr. Gallardo's office was called adn updated on blood culture results
--- NOTE | 2021-06-28 10:33 | NURSING ---
Regional Tanker Truck Driver Note: Interview completed for MDS and section F complete.
[2021-06-28 11:36] LABS: Bedside Glucose 210 mg/dL (74-106)
[2021-06-28] MEDS: Tuberculin,Purif.prot.deriv. 50 TU/ML Vial 0.1 ML ID (11:43)
--- NOTE | 2021-06-28 13:18 | PCM.PN.ID ---
Physical Exam Narrative Feeling ok, no fever, no n/v/d. L shoulder at baseline. Const alert and no apparent distress General Appearance: cooperative Resp normal air movement and clear to auscultation bilaterally Cardio regular rate and regular rhythm GI soft to palpation, non-tender and non-distended Skin Skin Narrative: no new rash ID ID: Route of nutrition/ use of supplements: [] Nutritional Intake: [] IV Site: [] Franco Catheter: [] Assessment & Plan Assessment/Plan (1) MSSA bacteremia: PLAN: MSSA bacteremia. TTE showed no veg but poor quality study. No veg seen on SHLOMO 06/16. Had some L shoulder pain with prior replacement there; improved. 06/16 bcx neg. Cont cefazolin. Not clear why bcx was repeated 06/23, but now (+). Will repeat bcx today and plan on extending course of abx. Will follow.
[2021-06-28] MEDS: 0.9% Saline Lock 10 ML Syringe IV (13:48)
[2021-06-28 14:21] VITALS: BP 117/68; PULSE 86; RESP 20; TEMP 35.9; O2SAT 96
--- NOTE | 2021-06-28 16:24 | CASEMGMT ---
Social Work Received call from QUITA anaya, this AM, identifying some additional social concerns involving potential financial exploitation. This is evidenced by reportedly pt giving away approx. $230,000 in the last 7 months to women named Anna and Mc. This has allegedly been happening since 2016 and paid out hundreds of thousands of dollars. Héctor expressed concerns because pt's bills are unable to be paid due to his bank accounts being in the negatives. Héctro received letters in the mail that utilities will be shut off July 09 if unable to pay amount due. Héctor did discuss this with pt. Currently, she has frozen all of his bank accounts and debit cards. She spoke to the [employer] to set up safety precautions. Due to the money being frozen and canceled in 'cashapp' paying these women, héctor expressed concern with these people trying to locate the pt. Héctor stated she did explore this concern with the pt and he does not feel they would harm him, but understands the protection factor and is agreeable to any measure the hospital can take. Discussed confidentiality and privacy of pt, explaining the 'Do Not Publish'/VIP option, which, allows anyone calling into the hospital to not confirm pt is admitted. The only people allowed to know about pt is his sister and héctor, that are accurately listed on the face sheet. Both of them have direct numbers to the nurse's station and this worker. Héctor agreeable to this option. SW to speak with pt to confirm wishes. Héctor stated she thinks the bank called APS but they could not confirm. Héctor explained she has been in contact with an state attorney to assist with pt's finances and will continue to do so. Héctor expressed appreciation for assistance. -- Collaborated with lead MIMI on above information. Upon chart review, all advanced directive documents do not have named PO address or phone number. The documents were prepared by an state attorney. MIMI to discuss with héctor to get updated/completed documents from state attorney, if applicable. -- Spoke with pt. Inquired about above situation and pt is in agreement to protecting privacy. However, pt could not elaborate on any of the information further due to capacity/drowsiness. Contacted Leonora in registration to make pt Do Not Publish/VIP effective immediately. Updated Director, IDT and floor staff of the VIP status. -- Made APS referral to MIMI Sullivan, whom is already aware of situation via pt's bank. Nate stated she just closed the case because pt admitted to hospital, and she attempted to contact pt via phone and by house for 2 months and no response/contact. Nate suggested for niece to contact her to get further information/ask questions. Informed Nate on utility shut off and inability to pay bills. Nate suggested to provide resources for Community [employer]. SW agreed. SW to notify Nate at time of DC and disposition. -- Contacted niece to update on APS referral and VIP status. Encouraged niece to discuss with state attorney if there are any assets to liquidate to start paying pt's bills and to assess for eligibility for FATUMA. Once financial status is further known, SW to explore community resources that are available to pt for further assistance. Explained advanced directive paperwork. Niece is still in contact with the noted state attorney and will follow up with him. Advised niece to not use own money to pay for bills, etc. Niece acknowledged and agreed. Niece inquired about guardianship, per state attorney. Explained guardianship in relation to circumstances r/t to incapacitation, contesting POA, and industrial electrical engineer's preferring pt's having the least restrictive options to assist pt. Will monitor for appropriateness, but it is unable to be legally determined if pt was incapacitated since 2016 to be making these decisions, and POA is active and in place to assist pt in current state. Niece understood and agreed. Niece expressed appreciation for assistance. DC timeframe and disposition is unknown at this time. SW to continue to follow. MATEUSZ Cordova
[2021-06-28 16:41] LABS: Bedside Glucose 204 mg/dL (74-106)
[2021-06-28] MEDS: Rivaroxaban 10 MG Tablet PO (17:24)
[2021-06-28 21:41] LABS: Bedside Glucose 312 mg/dL (74-106)
[2021-06-28] MEDS: Latanoprost 0.005% 1 Bottle 1 DRP EACH EYE (21:57)
[2021-06-28 22:10] VITALS: PULSE 92; RESP 14; RESP 18; O2SAT 96
[2021-06-29 03:30] VITALS: RESP 14
[2021-06-29] MEDS: Cefazolin 2 GM in 0.9% Normal Saline 100 ML IV ×3 (04:14→21:40)
[2021-06-29] MEDS: Fluconazole Suspension 40 MG/ML 35 ML Bottle 200 MG PO (04:14)
[2021-06-29] MEDS: Acetaminophen 500 MG Tablet 1000 MG PO ×3 (04:14→21:40)
[2021-06-29] MEDS: Furosemide 40 MG Tablet PO (04:15)
[2021-06-29] MEDS: Senna/Docusate Sodium 1 Tablet PO (04:15)
[2021-06-29] MEDS: Menthol/Lanolin/Calamine/Znox 113 GM Tube 1 APPLIC TOPICAL ×2 (04:15→17:51)
[2021-06-29 06:16] LABS: Bedside Glucose 260 mg/dL (74-106)
[2021-06-29] MEDS: Potassium Chloride Oral Tablet 10 MEQ PO (08:03)
[2021-06-29] MEDS: Insulin Lispro 100 UNIT/ML INSULN.PEN 10 UNIT SC ×3 (08:05→17:53)
[2021-06-29 11:10] VITALS: PULSE 85; RESP 18; O2SAT 95
[2021-06-29 11:16] LABS: Bedside Glucose 308 mg/dL (74-106)
[2021-06-29 14:10] VITALS: BP 139/86; PULSE 52; RESP 14; TEMP 36.1; O2SAT 91
[2021-06-29] MEDS: 0.9% Saline Lock 10 ML Syringe IV (14:12)
[2021-06-29 14:25] VITALS: O2SAT 100
[2021-06-29 16:16] LABS: Bedside Glucose 160 mg/dL (74-106)
[2021-06-29] MEDS: Rivaroxaban 10 MG Tablet PO (17:51)
[2021-06-29] MEDS: Latanoprost 0.005% 1 Bottle 1 DRP EACH EYE (21:40)
[2021-06-29] MEDS: oxyCODONE 5 MG Tablet PO (21:50)
[2021-06-29 21:56] LABS: Bedside Glucose 144 mg/dL (74-106)
[2021-06-29 22:07] VITALS: PULSE 105; RESP 14; RESP 23; O2SAT 93
[2021-06-30 05:00] VITALS: PULSE 93; RESP 14; RESP 24; O2SAT 92
[2021-06-30] MEDS: Cefazolin 2 GM in 0.9% Normal Saline 100 ML IV ×3 (05:35→22:57)
[2021-06-30] MEDS: Fluconazole Suspension 40 MG/ML 35 ML Bottle 200 MG PO (05:35)
[2021-06-30] MEDS: Acetaminophen 500 MG Tablet 1000 MG PO ×3 (05:35→22:57)
[2021-06-30] MEDS: Furosemide 40 MG Tablet PO (05:36)
[2021-06-30] MEDS: Menthol/Lanolin/Calamine/Znox 113 GM Tube 1 APPLIC TOPICAL ×2 (05:36→17:58)
[2021-06-30 06:26] LABS: Bedside Glucose 120 mg/dL (74-106)
[2021-06-30] MEDS: Insulin Lispro 100 UNIT/ML INSULN.PEN 10 UNIT SC ×3 (07:05→17:57)
[2021-06-30 07:10] VITALS: O2SAT 99
[2021-06-30] MEDS: Potassium Chloride Oral Tablet 10 MEQ PO (09:22)
[2021-06-30 11:12] LABS: Bedside Glucose 238 mg/dL (74-106)
[2021-06-30] MEDS: oxyCODONE 5 MG Tablet PO (13:02)
[2021-06-30] MEDS: 0.9% Saline Lock 10 ML Syringe IV (14:39)
[2021-06-30 15:38] VITALS: BP 171/89; PULSE 101; RESP 12; TEMP 36.4; O2SAT 96
[2021-06-30 16:11] LABS: Bedside Glucose 113 mg/dL (74-106)
[2021-06-30] MEDS: Rivaroxaban 10 MG Tablet PO (17:59)
[2021-06-30] MEDS: Senna/Docusate Sodium 1 Tablet PO (17:59)
--- NOTE | 2021-06-30 18:56 | NURSING ---
Pt urine continues to be cola colored Dr. Tidwell updated and he would like UA done to check Bilirubin and Ketones.
[2021-06-30 20:39] VITALS: PULSE 93; RESP 14; RESP 26; O2SAT 95
[2021-06-30 21:56] LABS: Bedside Glucose 132 mg/dL (74-106)
[2021-06-30] MEDS: Latanoprost 0.005% 1 Bottle 1 DRP EACH EYE (22:57)
[2021-06-30 23:02] LABS: Mucous, Urine 0 SEEN /hpf (<or=2+); Squamous Epithelial Cells - UA 0 SEEN /hpf (0-5)
[2021-06-30 23:03] LABS: Color, Urine Brown (Yellow); Glucose, Dipstick Normal (Normal); Ketone-Dipstick Negative (Negative); Leukocyte Esterase-Dipstick 100 /ul (Negative); Nitrite-Dipstick Positive (Negative); Occult Blood-Urine 250 /ul (Negative); Protein-Dipstick 30 mg/dl (Negative); Urine Bilirubin Dipstick Negative (Negative); Urine Clarity Cloudy (Clear); Urine Urobilinogen Normal (Normal)
[2021-06-30 23:09] LABS: Red Blood Cells-Urine > 100 SEEN /hpf (0-5)
[2021-06-30 23:10] LABS: White Blood Cells 10-25 SEEN /hpf (0-5)
[2021-06-30 23:11] LABS: Bacteria 1+ /hpf (None Seen)
[2021-06-30 23:17] LABS: Coarse Granular Cast 0-5 SEEN /lpf (0-5 /lpf)
[2021-07-01 00:31] VITALS: PULSE 94; RESP 14; RESP 23; O2SAT 95
[2021-07-01] MEDS: Cefazolin 2 GM in 0.9% Normal Saline 100 ML IV ×3 (05:43→21:29)
[2021-07-01] MEDS: Fluconazole Suspension 40 MG/ML 35 ML Bottle 200 MG PO (05:44)
[2021-07-01] MEDS: Acetaminophen 500 MG Tablet 1000 MG PO ×3 (05:44→21:27)
[2021-07-01] MEDS: Menthol/Lanolin/Calamine/Znox 113 GM Tube 1 APPLIC TOPICAL ×2 (05:44→17:56)
[2021-07-01] MEDS: Furosemide 40 MG Tablet PO (05:44)
[2021-07-01 06:36] LABS: Bedside Glucose 140 mg/dL (74-106)
[2021-07-01] MEDS: Insulin Lispro 100 UNIT/ML INSULN.PEN 10 UNIT SC ×3 (08:36→17:57)
[2021-07-01] MEDS: Potassium Chloride Oral Tablet 10 MEQ PO (08:38)
[2021-07-01 10:43] VITALS: O2SAT 93
[2021-07-01] MEDS: traMADol 50 MG Tablet PO (10:43)
[2021-07-01 11:11] LABS: Bedside Glucose 170 mg/dL (74-106)
[2021-07-01 13:10] VITALS: PULSE 103; RESP 18; O2SAT 96
[2021-07-01] MEDS: 0.9% Saline Lock 10 ML Syringe IV ×2 (13:29→21:29)
--- NOTE | 2021-07-01 13:29 | MDS.RN ---
Information for the mds was obtained from review of the clinical record, interview of resident, staff and direct observation of resident's care.
--- NOTE | 2021-07-01 14:29 | NURSING ---
CALLED RASPATORY TO FIND OUT WHY PT IS ON CONTINUOUS PULSE OX DUE TO NO NOTES OR ORDERS. RESPIRATORY STATED THAT DUE TO A RECALL ON A PART ON BYPAP PTS MUST HAVE A CONTINUOS PULES OX ON TILL PROBLEM IS RESOLVED. RN AWARE
[2021-07-01 15:32] VITALS: BP 129/67; PULSE 93; RESP 16; TEMP 36.6; O2SAT 94
[2021-07-01 16:11] LABS: Bedside Glucose 146 mg/dL (74-106)
[2021-07-01] MEDS: Rivaroxaban 10 MG Tablet PO (17:55)
[2021-07-01] MEDS: Latanoprost 0.005% 1 Bottle 1 DRP EACH EYE (21:27)
[2021-07-01 21:52] LABS: Bedside Glucose 139 mg/dL (74-106)
[2021-07-01 23:38] VITALS: PULSE 102; RESP 14; RESP 22; O2SAT 95
[2021-07-02] VITALS (7 sets, daily range): BP systolic 158–174; BP diastolic 84–96; PULSE 97–104; RESP 14–20; TEMP 36.7–36.8; O2SAT 93–99
--- NOTE | 2021-07-02 04:17 | NURSING ---
This Nurse called lab to inquire about HSV culture still pending since 06/21/21. Lui from lab said he would send results up. Received results through tube system. Abnormal results; Positive for Herpes Simplex virus type-1. Report left for Dr. Tidwell.
[2021-07-02] MEDS: Cefazolin 2 GM in 0.9% Normal Saline 100 ML IV ×3 (05:02→21:24)
[2021-07-02] MEDS: Furosemide 40 MG Tablet PO (05:03)
[2021-07-02] MEDS: Acetaminophen 500 MG Tablet 1000 MG PO ×3 (05:03→21:23)
[2021-07-02] MEDS: Fluconazole Suspension 40 MG/ML 35 ML Bottle 200 MG PO (05:13)
[2021-07-02] MEDS: 0.9% Saline Lock 10 ML Syringe IV ×3 (05:13→21:31)
[2021-07-02] MEDS: Menthol/Lanolin/Calamine/Znox 113 GM Tube 1 APPLIC TOPICAL ×2 (05:19→16:58)
[2021-07-02 06:21] LABS: Bedside Glucose 132 mg/dL (74-106)
[2021-07-02] MEDS: Potassium Chloride Oral Tablet 10 MEQ PO (08:04)
[2021-07-02] MEDS: Metoprolol Tartrate 25 MG Tablet 12.5 MG PO ×2 (08:04→16:53)
[2021-07-02] MEDS: Insulin Lispro 100 UNIT/ML INSULN.PEN 10 UNIT SC ×3 (08:04→16:55)
[2021-07-02] MEDS: Acyclovir 200 MG Capsule 400 MG PO ×4 (10:00→21:24)
[2021-07-02] MEDS: traMADol 50 MG Tablet PO (10:00)
[2021-07-02 10:40] LABS: Bedside Glucose 160 mg/dL (74-106)
[2021-07-02 16:41] LABS: Bedside Glucose 141 mg/dL (74-106)
[2021-07-02] MEDS: Rivaroxaban 10 MG Tablet PO (16:53)
[2021-07-02] MEDS: Latanoprost 0.005% 1 Bottle 1 DRP EACH EYE (21:23)
[2021-07-02 22:01] LABS: Bedside Glucose 134 mg/dL (74-106)
[2021-07-03] VITALS (7 sets, daily range): BP systolic 131–158; BP diastolic 71–84; PULSE 85–97; RESP 14–22; TEMP 36.7; O2SAT 96
[2021-07-03] MEDS: Menthol/Lanolin/Calamine/Znox 113 GM Tube 1 APPLIC TOPICAL ×2 (06:25→17:59)
[2021-07-03] MEDS: Cefazolin 2 GM in 0.9% Normal Saline 100 ML IV ×3 (06:26→23:43)
[2021-07-03] MEDS: Senna/Docusate Sodium 1 Tablet PO ×2 (06:31→17:56)
[2021-07-03] MEDS: Metoprolol Tartrate 25 MG Tablet 12.5 MG PO ×2 (06:31→17:58)
[2021-07-03] MEDS: Furosemide 40 MG Tablet PO (06:31)
[2021-07-03] MEDS: Acetaminophen 500 MG Tablet 1000 MG PO ×3 (06:32→23:40)
[2021-07-03] MEDS: Acyclovir 200 MG Capsule 400 MG PO ×5 (06:32→23:39)
[2021-07-03] MEDS: Fluconazole Suspension 40 MG/ML 35 ML Bottle 200 MG PO (06:33)
[2021-07-03 06:41] LABS: Bedside Glucose 90 mg/dL (74-106)
[2021-07-03] MEDS: Potassium Chloride Oral Tablet 10 MEQ PO (08:38)
[2021-07-03] MEDS: Insulin Lispro 100 UNIT/ML INSULN.PEN 10 UNIT SC ×3 (08:41→18:05)
[2021-07-03] MEDS: 0.9% Saline Lock 10 ML Syringe IV ×2 (08:42→13:20)
[2021-07-03] MEDS: traMADol 50 MG Tablet PO (10:59)
[2021-07-03 11:26] LABS: Bedside Glucose 125 mg/dL (74-106)
[2021-07-03 16:11] LABS: Bedside Glucose 102 mg/dL (74-106)
[2021-07-03] MEDS: Rivaroxaban 10 MG Tablet PO (17:57)
[2021-07-03] MEDS: Latanoprost 0.005% 1 Bottle 1 DRP EACH EYE (23:40)
--- NOTE | 2021-07-03 23:40 | NURSING ---
Oral care completed w/ toothettes x 4. Small amount of debris removed from mouth. Mouth moisturizer applied to lips.
[2021-07-04] MEDS: Acyclovir 200 MG Capsule 400 MG PO ×5 (06:03→22:46)
[2021-07-04 06:04] VITALS: BP 166/92; PULSE 93
[2021-07-04] MEDS: Metoprolol Tartrate 25 MG Tablet 12.5 MG PO ×2 (06:04→17:09)
[2021-07-04] MEDS: Acetaminophen 500 MG Tablet 1000 MG PO ×3 (06:04→22:45)
[2021-07-04] MEDS: Fluconazole Suspension 40 MG/ML 35 ML Bottle 200 MG PO (06:05)
[2021-07-04] MEDS: Furosemide 40 MG Tablet PO (06:06)
[2021-07-04] MEDS: Polyethylene Glycol 3350 17 GM PACKET PO (06:06)
[2021-07-04] MEDS: Senna/Docusate Sodium 1 Tablet PO ×2 (06:07→17:09)
[2021-07-04] MEDS: Menthol/Lanolin/Calamine/Znox 113 GM Tube 1 APPLIC TOPICAL ×2 (06:07→17:23)
[2021-07-04] MEDS: 0.9% Saline Lock 10 ML Syringe IV ×3 (06:08→22:47)
[2021-07-04] MEDS: Cefazolin 2 GM in 0.9% Normal Saline 100 ML IV ×3 (06:09→22:48)
[2021-07-04] MEDS: Potassium Chloride Oral Tablet 10 MEQ PO (08:31)
[2021-07-04] MEDS: Insulin Lispro 100 UNIT/ML INSULN.PEN 10 UNIT SC ×3 (08:35→17:25)
[2021-07-04 08:40] LABS: Bedside Glucose 170 mg/dL (74-106)
[2021-07-04 11:16] LABS: Bedside Glucose 161 mg/dL (74-106)
[2021-07-04 14:40] VITALS: O2SAT 95
[2021-07-04] MEDS: Bisacodyl 5 MG Tablet 10 MG PO (14:51)
[2021-07-04 16:00] VITALS: BP 151/95; PULSE 89; RESP 24; TEMP 36.2; O2SAT 94
[2021-07-04 16:10] LABS: Bedside Glucose 137 mg/dL (74-106)
[2021-07-04] MEDS: Rivaroxaban 10 MG Tablet PO (17:08)
[2021-07-04 17:09] VITALS: PULSE 89
[2021-07-04] MEDS: Bisacodyl 10 MG Suppository RC (17:11)
[2021-07-04 21:05] LABS: Bedside Glucose 159 mg/dL (74-106)
[2021-07-04] MEDS: Latanoprost 0.005% 1 Bottle 1 DRP EACH EYE (22:46)
[2021-07-04] MEDS: 0.9% Normal Saline 250 ML IV.SOLN. IV (22:48)
[2021-07-04 23:58] VITALS: PULSE 95; RESP 14; RESP 24; O2SAT 96
--- NOTE | 2021-07-05 05:23 | NURSING ---
BiPAP mask off upon entering room. Monitor reads 96% on room air. O2 reapplied at 2 lpm via nc. In no acute distress.
[2021-07-05] MEDS: 0.9% Saline Lock 10 ML Syringe IV ×2 (06:35→14:21)
[2021-07-05] MEDS: Menthol/Lanolin/Calamine/Znox 113 GM Tube 1 APPLIC TOPICAL ×2 (06:35→17:56)
[2021-07-05] MEDS: Polyethylene Glycol 3350 17 GM PACKET PO (06:40)
[2021-07-05] MEDS: Acetaminophen 500 MG Tablet 1000 MG PO ×3 (06:40→20:43)
[2021-07-05] MEDS: Senna/Docusate Sodium 1 Tablet PO ×2 (06:40→17:51)
[2021-07-05 06:41] VITALS: BP 138/78; PULSE 97
[2021-07-05] MEDS: Metoprolol Tartrate 25 MG Tablet 12.5 MG PO ×2 (06:41→17:50)
[2021-07-05] MEDS: Acyclovir 200 MG Capsule 400 MG PO ×5 (06:41→20:44)
[2021-07-05 06:42] LABS: Absolute Lymphocyte Count 0.49 X10^3/uL (0.83-4.51); Absolute Neutrophil Count 7.7 X10^3/uL (2.0-7.7); Basophil# 0.02 X10^3/uL; Basophil% 0.2 % (0-1); Eosinophil# 0.19 X10^3/uL; Hematocrit 30.9 % (40-54); Hemoglobin 10.1 g/dL (13.0-16.5); Lymphocyte # 0.49 X10^3/ul (0.83-4.51); Lymphocyte % 5.2 % (19-41); Mean Corp Hgb Conc 32.7 g/dL (32-36); Mean Corpuscular Hgb 26.9 pg (27.0-32.0); Mean Corpuscular Volume 82.2 fL (80-94); Mean Platelet Vol. 9.7 fl (6.2-12.0); Monocyte% 9.5 % (0-10); NRBC Flagged by Analyzer 0 % (0-5); Neutrophil # 7.74 X10^3/uL (2.7-7.7); POSITIVE COUNT YES; POSITIVE DIFFERENTIAL YES; Platelet Count 385 K/mm3 (150-450); RBC Distribution Width CV 17.4 % (11.6-14.6); RBC Distribution Width SD 51.1 fl (35.1-43.9); Red Blood Count 3.76 M/mm3 (4.6-6.2); White Blood Count 9.4 K/mm3 (4.4-11.0)
[2021-07-05] MEDS: Fluconazole Suspension 40 MG/ML 35 ML Bottle 200 MG PO (06:42)
[2021-07-05] MEDS: Furosemide 40 MG Tablet PO (06:44)
[2021-07-05 06:46] LABS: Bedside Glucose 116 mg/dL (74-106)
[2021-07-05] MEDS: Cefazolin 2 GM in 0.9% Normal Saline 100 ML IV ×3 (06:48→20:43)
[2021-07-05 06:50] VITALS: O2SAT 95
[2021-07-05 06:52] LABS: Differential Indicated SCAN CRITERIA MET
[2021-07-05 07:03] LABS: Anisocytosis 1+
[2021-07-05] MEDS: Potassium Chloride Oral Tablet 10 MEQ PO (08:25)
[2021-07-05] MEDS: Insulin Lispro 100 UNIT/ML INSULN.PEN 10 UNIT SC ×3 (08:27→17:56)
[2021-07-05 09:58] LABS: Anion Gap 5 (5-15); BUN 43 mg/dL (7-18); BUN/Creat Ratio 30.3 RATIO (10-20); Calcium,Total 10.9 mg/dL (8.5-10.1); Chloride 106 mmol/L (98-107); Creatinine, Serum 1.42 mg/dL (0.70-1.30); EST Glomerular Filtration Rate 52 mL/min (>60); Est Glom Filt Rate - Afr Amer 63 mL/min (>60); Estimated Creatinine Clearance 44.31 ml/min; Glucose 193 mg/dL (74-106); Potassium 4.4 mmol/L (3.5-5.1); Sodium Level 138 mmol/L (136-145)
[2021-07-05] MEDS: traMADol 50 MG Tablet PO (10:01)
[2021-07-05 10:35] LABS: Bedside Glucose 145 mg/dL (74-106)
[2021-07-05 14:27] VITALS: BP 124/67; PULSE 95; RESP 18; TEMP 36.3; O2SAT 98
[2021-07-05 15:51] LABS: Bedside Glucose 122 mg/dL (74-106)
[2021-07-05 17:50] VITALS: BP 124/67; PULSE 95
[2021-07-05] MEDS: Rivaroxaban 10 MG Tablet PO (17:50)
[2021-07-05] MEDS: Latanoprost 0.005% 1 Bottle 1 DRP EACH EYE (20:43)
[2021-07-05 20:57] VITALS: PULSE 93; RESP 14; RESP 32; O2SAT 100
[2021-07-05] MEDS: Ipratropium/Albuterol Sulfate 3 ML AMPUL.NEB INHALATION (20:57)
[2021-07-05 22:00] VITALS: O2SAT 95
[2021-07-05 22:16] LABS: Bedside Glucose 112 mg/dL (74-106)
[2021-07-06] MEDS: Acetaminophen 500 MG Tablet 1000 MG PO ×3 (05:20→22:07)
[2021-07-06] MEDS: Polyethylene Glycol 3350 17 GM PACKET PO (05:20)
[2021-07-06] MEDS: Acyclovir 200 MG Capsule 400 MG PO ×5 (05:20→22:07)
[2021-07-06] MEDS: Cefazolin 2 GM in 0.9% Normal Saline 100 ML IV ×3 (05:21→22:29)
[2021-07-06] MEDS: Menthol/Lanolin/Calamine/Znox 113 GM Tube 1 APPLIC TOPICAL ×2 (05:21→17:56)
[2021-07-06] MEDS: Furosemide 40 MG Tablet PO (05:21)
[2021-07-06] MEDS: Senna/Docusate Sodium 1 Tablet PO (05:21)
[2021-07-06] MEDS: Fluconazole Suspension 40 MG/ML 35 ML Bottle 200 MG PO (05:21)
[2021-07-06 05:22] VITALS: BP 178/96; PULSE 104
[2021-07-06] MEDS: Metoprolol Tartrate 25 MG Tablet 12.5 MG PO ×2 (05:22→18:01)
[2021-07-06 06:31] LABS: Bedside Glucose 135 mg/dL (74-106)
[2021-07-06] MEDS: Potassium Chloride Oral Tablet 10 MEQ PO (08:02)
[2021-07-06] MEDS: Insulin Lispro 100 UNIT/ML INSULN.PEN 10 UNIT SC ×3 (08:04→17:59)
[2021-07-06] MEDS: traMADol 50 MG Tablet PO (10:29)
[2021-07-06 10:45] VITALS: PULSE 90; RESP 18; O2SAT 96
[2021-07-06 11:06] LABS: Bedside Glucose 153 mg/dL (74-106)
[2021-07-06 11:15] VITALS: PULSE 88; RESP 20
--- NOTE | 2021-07-06 11:47 | NURSING ---
PER ILAN,SHE TALKED TO LINDA FROM INFECTION DISEASE THAT PT CAN COME OUT OF PRECAUTIONS/QUARANTINE. RN AWARE
--- NOTE | 2021-07-06 12:07 | CASEMGMT ---
Social Work IDT discussed patient making limited progress at this time and suggested family start preparing for transfer to SNF. Left detailed message with niece explaining above, to discuss Medicaid vs private pay and SNF choices. Offered assistance with DC planning. SW to continue to follow. Alicia Cummins ,INSURANCE SERVICE REPRESENTATIVE VASCULAR SURGERY PHYSICIAN
[2021-07-06 14:10] VITALS: BP 126/64; PULSE 96; RESP 14; TEMP 36; O2SAT 97
[2021-07-06] MEDS: 0.9% Saline Lock 10 ML Syringe IV ×2 (14:10→22:34)
[2021-07-06 15:36] LABS: Bedside Glucose 131 mg/dL (74-106)
[2021-07-06] MEDS: Rivaroxaban 10 MG Tablet PO (18:00)
[2021-07-06 18:01] VITALS: BP 126/64; PULSE 96
[2021-07-06 21:51] LABS: Bedside Glucose 109 mg/dL (74-106)
[2021-07-06] MEDS: Latanoprost 0.005% 1 Bottle 1 DRP EACH EYE (22:10)
[2021-07-06] MEDS: 0.9% Normal Saline 250 ML IV.SOLN. IV (22:29)
[2021-07-07] MEDS: Senna/Docusate Sodium 1 Tablet PO ×2 (05:49→17:42)
[2021-07-07] MEDS: Acyclovir 200 MG Capsule 400 MG PO ×2 (05:49→10:21)
[2021-07-07] MEDS: Menthol/Lanolin/Calamine/Znox 113 GM Tube 1 APPLIC TOPICAL ×2 (05:49→17:45)
[2021-07-07 05:50] VITALS: BP 133/81; PULSE 102
[2021-07-07] MEDS: Metoprolol Tartrate 25 MG Tablet 12.5 MG PO ×2 (05:50→17:42)
[2021-07-07] MEDS: Acetaminophen 500 MG Tablet 1000 MG PO ×3 (05:50→21:45)
[2021-07-07] MEDS: Furosemide 40 MG Tablet PO (05:51)
[2021-07-07] MEDS: Polyethylene Glycol 3350 17 GM PACKET PO (05:51)
[2021-07-07] MEDS: Fluconazole Suspension 40 MG/ML 35 ML Bottle 200 MG PO (05:51)
[2021-07-07] MEDS: Cefazolin 2 GM in 0.9% Normal Saline 100 ML IV ×3 (06:04→21:45)
[2021-07-07 06:06] LABS: Bedside Glucose 109 mg/dL (74-106)
[2021-07-07] MEDS: Insulin Lispro 100 UNIT/ML INSULN.PEN 10 UNIT SC ×3 (08:00→17:41)
[2021-07-07] MEDS: Potassium Chloride Oral Tablet 10 MEQ PO (08:00)
[2021-07-07 09:30] LABS: Bedside Glucose 113 mg/dL (74-106)
[2021-07-07] MEDS: traMADol 50 MG Tablet PO (10:21)
[2021-07-07 11:21] LABS: Bedside Glucose 127 mg/dL (74-106)
[2021-07-07] MEDS: 0.9% Saline Lock 10 ML Syringe IV (13:31)
[2021-07-07 14:35] VITALS: BP 132/78; PULSE 103; RESP 16; TEMP 36.4; O2SAT 94
[2021-07-07 16:11] LABS: Bedside Glucose 177 mg/dL (74-106)
[2021-07-07 17:42] VITALS: PULSE 103
[2021-07-07] MEDS: Rivaroxaban 10 MG Tablet PO (17:42)
[2021-07-07] MEDS: Latanoprost 0.005% 1 Bottle 1 DRP EACH EYE (21:44)
[2021-07-07 22:00] VITALS: O2SAT 100
[2021-07-07 22:25] LABS: Bedside Glucose 135 mg/dL (74-106)
--- NOTE | 2021-07-07 22:39 | CPS ---
[2230] Pt. refusing NIV at this time
[2021-07-08] MEDS: Senna/Docusate Sodium 1 Tablet PO (05:05)
[2021-07-08] MEDS: Fluconazole Suspension 40 MG/ML 35 ML Bottle 200 MG PO (05:05)
[2021-07-08] MEDS: Furosemide 40 MG Tablet PO (05:05)
[2021-07-08] MEDS: Acetaminophen 500 MG Tablet 1000 MG PO ×3 (05:05→21:51)
[2021-07-08 05:06] VITALS: BP 177/82; PULSE 94
[2021-07-08] MEDS: Cefazolin 2 GM in 0.9% Normal Saline 100 ML IV ×3 (05:06→21:49)
[2021-07-08] MEDS: Metoprolol Tartrate 25 MG Tablet 12.5 MG PO ×2 (05:06→17:16)
[2021-07-08] MEDS: Menthol/Lanolin/Calamine/Znox 113 GM Tube 1 APPLIC TOPICAL ×2 (05:07→17:18)
[2021-07-08 06:21] LABS: Bedside Glucose 113 mg/dL (74-106)
[2021-07-08] MEDS: Insulin Lispro 100 UNIT/ML INSULN.PEN 10 UNIT SC ×3 (07:42→17:20)
[2021-07-08] MEDS: Potassium Chloride Oral Tablet 10 MEQ PO (07:43)
--- NOTE | 2021-07-08 09:51 | NURSING ---
Pt was to [facility] this [facility] at 0815 for ENT appointment at 0915. [facility] not show [facility] at 0815 and was called by this nurse and stated they would not be able to pick pt up until around 0945. [facility] was called and updated and was unable to accommodate the time change so appointment rescheduled for 07/16/21 at 0930. [facility] was updated and stated they could accommodate the transport on 07/16/21 and would pick pt up at 0830.
[2021-07-08 10:51] LABS: Bedside Glucose 124 mg/dL (74-106)
[2021-07-08] MEDS: traMADol 50 MG Tablet PO (11:26)
[2021-07-08] MEDS: 0.9% Saline Lock 10 ML Syringe IV ×2 (13:52→21:55)
[2021-07-08 15:51] LABS: Bedside Glucose 109 mg/dL (74-106)
[2021-07-08 16:00] VITALS: BP 149/88; PULSE 85; RESP 22; TEMP 36.1; O2SAT 98
[2021-07-08 16:31] LABS: Bedside Glucose 108 mg/dL (74-106)
[2021-07-08] MEDS: Rivaroxaban 10 MG Tablet PO (17:15)
[2021-07-08 17:16] VITALS: PULSE 85
[2021-07-08 18:46] VITALS: PULSE 94; RESP 20
[2021-07-08] MEDS: Ipratropium/Albuterol Sulfate 3 ML AMPUL.NEB INHALATION (18:46)
[2021-07-08 21:31] LABS: Bedside Glucose 89 mg/dL (74-106)
[2021-07-08 21:48] VITALS: PULSE 89; RESP 18; O2SAT 94
[2021-07-08] MEDS: Latanoprost 0.005% 1 Bottle 1 DRP EACH EYE (21:51)
[2021-07-08 22:23] VITALS: PULSE 90; RESP 14; RESP 22; O2SAT 94
--- NOTE | 2021-07-08 23:32 | NURSING ---
Patient's BIPAP alarm and continuous oxygen alarm sounding. This Nurse entered room and found patient with BIPAP mask off above head. Mask placed back on patient. Alarms rest.
[2021-07-09] VITALS (7 sets, daily range): BP systolic 143–147; BP diastolic 61–79; PULSE 84–94; RESP 14–19; TEMP 36.2; O2SAT 94–98
[2021-07-09] MEDS: Furosemide 40 MG Tablet PO (05:46)
[2021-07-09] MEDS: Metoprolol Tartrate 25 MG Tablet 12.5 MG PO ×2 (05:46→17:37)
[2021-07-09] MEDS: Senna/Docusate Sodium 1 Tablet PO ×2 (05:47→17:36)
[2021-07-09] MEDS: Nystatin Powder 15gm Bottle 1 APPLIC TOPICAL ×2 (05:47→17:36)
[2021-07-09] MEDS: Fluconazole Suspension 40 MG/ML 35 ML Bottle 200 MG PO (05:47)
[2021-07-09] MEDS: Polyethylene Glycol 3350 17 GM PACKET PO (05:47)
[2021-07-09] MEDS: Acetaminophen 500 MG Tablet 1000 MG PO ×3 (05:47→21:50)
[2021-07-09] MEDS: 0.9% Saline Lock 10 ML Syringe IV ×3 (05:48→21:51)
[2021-07-09] MEDS: Cefazolin 2 GM in 0.9% Normal Saline 100 ML IV ×3 (05:49→21:50)
[2021-07-09 06:36] LABS: Bedside Glucose 87 mg/dL (74-106)
[2021-07-09] MEDS: Menthol/Lanolin/Calamine/Znox 113 GM Tube 1 APPLIC TOPICAL ×2 (08:35→17:35)
[2021-07-09] MEDS: Potassium Chloride Oral Tablet 10 MEQ PO (08:37)
[2021-07-09] MEDS: Insulin Lispro 100 UNIT/ML INSULN.PEN 10 UNIT SC ×3 (08:37→17:34)
[2021-07-09] MEDS: traMADol 50 MG Tablet PO (10:16)
[2021-07-09 11:16] LABS: Bedside Glucose 127 mg/dL (74-106)
--- NOTE | 2021-07-09 12:16 | PCM.PN.ID ---
Physical Exam Narrative Feeling better, no fever, no n/v/d. Const alert and no apparent distress General Appearance: cooperative Resp normal air movement and clear to auscultation bilaterally Cardio regular rate and regular rhythm GI soft to palpation, non-tender and non-distended Extremity General Extremity: edema Skin no rashes or lesions noted ID ID: Route of nutrition/ use of supplements: [] Nutritional Intake: [] IV Site: [] Franco Catheter: [] Assessment & Plan Assessment/Plan (1) MSSA bacteremia: PLAN: MSSA bacteremia. TTE showed no veg but poor quality study. No veg seen on SHLOMO 06/16. Had some L shoulder pain with prior replacement there; improved. 06/16 bcx neg. Cont cefazolin. Not clear why bcx was repeated 06/23, but now (+). Repeat bcx neg 06/28. Cefazolin stop date will be 07/26/21. Will follow.
[2021-07-09 16:02] LABS: Bedside Glucose 117 mg/dL (74-106)
[2021-07-09] MEDS: Rivaroxaban 10 MG Tablet PO (17:35)
[2021-07-09] MEDS: Latanoprost 0.005% 1 Bottle 1 DRP EACH EYE (21:51)
--- NOTE | 2021-07-10 00:40 | CPS ---
pt did not want to wear bipap at this time-placed on 2 l/m via nc
[2021-07-10 01:15] LABS: Bedside Glucose 115 mg/dL (74-106)
[2021-07-10 06:26] LABS: Bedside Glucose 109 mg/dL (74-106)
[2021-07-10] MEDS: 0.9% Saline Lock 10 ML Syringe IV (06:27)
[2021-07-10] MEDS: Cefazolin 2 GM in 0.9% Normal Saline 100 ML IV ×3 (06:28→21:49)
[2021-07-10 06:31] VITALS: BP 145/83; PULSE 107
[2021-07-10] MEDS: Polyethylene Glycol 3350 17 GM PACKET PO (06:31)
[2021-07-10] MEDS: Metoprolol Tartrate 25 MG Tablet 12.5 MG PO ×2 (06:31→17:34)
[2021-07-10] MEDS: Acetaminophen 500 MG Tablet 1000 MG PO ×3 (06:31→21:01)
[2021-07-10] MEDS: Senna/Docusate Sodium 1 Tablet PO ×2 (06:31→17:34)
[2021-07-10] MEDS: Furosemide 40 MG Tablet PO (06:31)
[2021-07-10] MEDS: Nystatin Powder 15gm Bottle 1 APPLIC TOPICAL ×2 (06:35→17:35)
[2021-07-10 06:50] VITALS: O2SAT 94
[2021-07-10] MEDS: Insulin Lispro 100 UNIT/ML INSULN.PEN 10 UNIT SC ×3 (08:45→17:33)
[2021-07-10] MEDS: Potassium Chloride Oral Tablet 10 MEQ PO (08:46)
[2021-07-10 09:28] VITALS: O2SAT 96
[2021-07-10] MEDS: traMADol 50 MG Tablet PO ×2 (10:06→22:51)
[2021-07-10 11:21] LABS: Bedside Glucose 121 mg/dL (74-106)
[2021-07-10 14:35] VITALS: BP 159/68; PULSE 88; RESP 16; TEMP 36.2; O2SAT 98
[2021-07-10 16:36] LABS: Bedside Glucose 94 mg/dL (74-106)
[2021-07-10] MEDS: Rivaroxaban 10 MG Tablet PO (17:33)
[2021-07-10 17:34] VITALS: BP 151/86; PULSE 90
[2021-07-10] MEDS: Menthol/Lanolin/Calamine/Znox 113 GM Tube 1 APPLIC TOPICAL (17:35)
[2021-07-10] MEDS: Latanoprost 0.005% 1 Bottle 1 DRP EACH EYE (21:02)
[2021-07-10 21:56] LABS: Bedside Glucose 88 mg/dL (74-106)
[2021-07-11 05:52] VITALS: PULSE 77
[2021-07-11] MEDS: Metoprolol Tartrate 25 MG Tablet 12.5 MG PO ×2 (05:52→18:00)
[2021-07-11] MEDS: Acetaminophen 500 MG Tablet 1000 MG PO ×3 (05:53→19:55)
[2021-07-11] MEDS: Nystatin Powder 15gm Bottle 1 APPLIC TOPICAL ×2 (05:54→18:03)
[2021-07-11] MEDS: Furosemide 40 MG Tablet PO (05:54)
[2021-07-11] MEDS: Polyethylene Glycol 3350 17 GM PACKET PO (05:54)
[2021-07-11] MEDS: Senna/Docusate Sodium 1 Tablet PO ×2 (05:54→18:01)
[2021-07-11] MEDS: Menthol/Lanolin/Calamine/Znox 113 GM Tube 1 APPLIC TOPICAL (05:55)
[2021-07-11 06:41] LABS: Bedside Glucose 85 mg/dL (74-106)
[2021-07-11] MEDS: Cefazolin 2 GM in 0.9% Normal Saline 100 ML IV ×3 (06:41→21:35)
[2021-07-11] MEDS: Potassium Chloride Oral Tablet 10 MEQ PO (08:09)
[2021-07-11] MEDS: Insulin Lispro 100 UNIT/ML INSULN.PEN 10 UNIT SC (08:09)
[2021-07-11 11:06] LABS: Bedside Glucose 145 mg/dL (74-106)
[2021-07-11 11:17] VITALS: PULSE 82; O2SAT 84
[2021-07-11 11:25] VITALS: PULSE 88; RESP 22; O2SAT 98
[2021-07-11] MEDS: Ipratropium/Albuterol Sulfate 3 ML AMPUL.NEB INHALATION (11:25)
[2021-07-11] MEDS: Insulin Lispro 100 UNIT/ML INSULN.PEN SC ×2 (12:01→18:00)
[2021-07-11] MEDS: 0.9% Saline Lock 10 ML Syringe IV (13:52)
[2021-07-11 14:26] VITALS: BP 146/82; PULSE 90; RESP 16; TEMP 36.2; O2SAT 98
[2021-07-11 17:06] LABS: Bedside Glucose 136 mg/dL (74-106)
[2021-07-11 18:00] VITALS: PULSE 90
[2021-07-11] MEDS: Rivaroxaban 10 MG Tablet PO (18:00)
[2021-07-11 21:43] VITALS: PULSE 90; RESP 14; RESP 20; O2SAT 96
[2021-07-11 23:01] LABS: Bedside Glucose 116 mg/dL (74-106)
[2021-07-11] MEDS: Latanoprost 0.005% 1 Bottle 1 DRP EACH EYE (23:33)
[2021-07-12] VITALS (7 sets, daily range): BP systolic 158; BP diastolic 84; PULSE 83–97; RESP 14–21; TEMP 36.3; O2SAT 94–96
[2021-07-12] MEDS: Furosemide 40 MG Tablet PO (05:33)
[2021-07-12] MEDS: Menthol/Lanolin/Calamine/Znox 113 GM Tube 1 APPLIC TOPICAL ×2 (05:33→17:39)
[2021-07-12] MEDS: Metoprolol Tartrate 25 MG Tablet 12.5 MG PO ×2 (05:33→17:40)
[2021-07-12] MEDS: Polyethylene Glycol 3350 17 GM PACKET PO (05:34)
[2021-07-12] MEDS: Senna/Docusate Sodium 1 Tablet PO ×2 (05:35→17:39)
[2021-07-12] MEDS: Acetaminophen 500 MG Tablet 1000 MG PO ×3 (05:35→22:21)
[2021-07-12] MEDS: Nystatin Powder 15gm Bottle 1 APPLIC TOPICAL ×2 (05:35→17:39)
[2021-07-12] MEDS: Cefazolin 2 GM in 0.9% Normal Saline 100 ML IV ×3 (05:53→22:19)
[2021-07-12 06:37] LABS: Bedside Glucose 108 mg/dL (74-106)
[2021-07-12 06:40] LABS: Absolute Lymphocyte Count 0.43 X10^3/uL (0.83-4.51); Absolute Neutrophil Count 7.2 X10^3/uL (2.0-7.7); Basophil# 0.01 X10^3/uL; Basophil% 0.1 % (0-1); Eosinophil# 0.27 X10^3/uL; Hematocrit 26.3 % (40-54); Hemoglobin 8.4 g/dL (13.0-16.5); Lymphocyte # 0.43 X10^3/ul (0.83-4.51); Lymphocyte % 4.8 % (19-41); Mean Corp Hgb Conc 31.9 g/dL (32-36); Mean Corpuscular Hgb 26.4 pg (27.0-32.0); Mean Corpuscular Volume 82.7 fL (80-94); Monocyte# 0.91 X10^3/uL; Monocyte% 10.1 % (0-10); NRBC Flagged by Analyzer 0 % (0-5); Neutrophil # 7.24 X10^3/uL (2.7-7.7); Neutrophil % 80.7 % (47-70); POSITIVE DIFFERENTIAL YES; Platelet Count 400 K/mm3 (150-450); RBC Distribution Width CV 17.8 % (11.6-14.6); RBC Distribution Width SD 53.2 fl (35.1-43.9); Red Blood Count 3.18 M/mm3 (4.6-6.2)
[2021-07-12 06:42] LABS: Differential Indicated SCAN CRITERIA MET
[2021-07-12 07:00] LABS: Anion Gap 4 (5-15); BUN 62 mg/dL (7-18); BUN/Creat Ratio 27.4 RATIO (10-20); Calcium,Total 9.6 mg/dL (8.5-10.1); Chloride 106 mmol/L (98-107); Creatinine, Serum 2.26 mg/dL (0.70-1.30); EST Glomerular Filtration Rate 31 mL/min (>60); Est Glom Filt Rate - Afr Amer 37 mL/min (>60); Estimated Creatinine Clearance 27.84 ml/min; Glucose 106 mg/dL (74-106); Potassium 5.5 mmol/L (3.5-5.1); Sodium Level 136 mmol/L (136-145)
[2021-07-12 07:01] LABS: Anisocytosis 1+
[2021-07-12] MEDS: Insulin Lispro 100 UNIT/ML INSULN.PEN SC ×3 (07:58→17:37)
[2021-07-12] MEDS: Sodium Polystyrene Sulfonate 15 GM/60 ML UDC 30 GM PO (09:37)
[2021-07-12] MEDS: 0.9% Saline Lock 10 ML Syringe IV (09:40)
[2021-07-12] MEDS: 0.9% Normal Saline 1,000 ML 100 ML IV ×2 (09:44→20:45)
[2021-07-12] MEDS: traMADol 50 MG Tablet PO (11:12)
[2021-07-12 11:31] LABS: Bedside Glucose 117 mg/dL (74-106)
--- NOTE | 2021-07-12 12:17 | NURSING ---
PT HAD POSITIVE RESULTS FROM THE KAYEXALATE.
[2021-07-12 16:35] LABS: Bedside Glucose 125 mg/dL (74-106)
[2021-07-12 22:00] LABS: Bedside Glucose 114 mg/dL (74-106)
[2021-07-12] MEDS: Latanoprost 0.005% 1 Bottle 1 DRP EACH EYE (22:21)
[2021-07-13 05:59] LABS: Anion Gap 3 (5-15); BUN 62 mg/dL (7-18); BUN/Creat Ratio 26.5 RATIO (10-20); Calcium,Total 9.5 mg/dL (8.5-10.1); Chloride 107 mmol/L (98-107); Creatinine, Serum 2.34 mg/dL (0.70-1.30); EST Glomerular Filtration Rate 30 mL/min (>60); Est Glom Filt Rate - Afr Amer 36 mL/min (>60); Estimated Creatinine Clearance 26.89 ml/min; Glucose 105 mg/dL (74-106); Sodium Level 137 mmol/L (136-145)
[2021-07-13 06:34] VITALS: BP 151/77; PULSE 87
[2021-07-13] MEDS: Polyethylene Glycol 3350 17 GM PACKET PO (06:34)
[2021-07-13] MEDS: Metoprolol Tartrate 25 MG Tablet 12.5 MG PO ×2 (06:34→17:31)
[2021-07-13] MEDS: Nystatin Powder 15gm Bottle 1 APPLIC TOPICAL ×2 (06:37→17:34)
[2021-07-13] MEDS: Cefazolin 2 GM in 0.9% Normal Saline 100 ML IV ×3 (06:38→21:57)
[2021-07-13] MEDS: Senna/Docusate Sodium 1 Tablet PO ×2 (06:40→17:33)
[2021-07-13 06:41] LABS: Bedside Glucose 101 mg/dL (74-106)
[2021-07-13] MEDS: Acetaminophen 500 MG Tablet 1000 MG PO ×3 (06:41→20:50)
--- NOTE | 2021-07-13 06:49 | NURSING ---
Patient noted to have +2 pitting edema to bilateral flank areas. Lung sounds CTA. Creatine up more today at 2.34 from 2.26 yesterday. Message left for Dr. Tidwell.
[2021-07-13] MEDS: Insulin Lispro 100 UNIT/ML INSULN.PEN SC ×3 (08:08→17:29)
[2021-07-13] MEDS: traMADol 50 MG Tablet PO (10:35)
[2021-07-13 10:56] LABS: Bedside Glucose 141 mg/dL (74-106)
--- NOTE | 2021-07-13 11:06 | US_ITS ---
STUDY: RENAL ULTRASOUND - COMPLETE REASON FOR EXAM: Male, 70 years old. GAYE TECHNIQUE: Ultrasound evaluation of the kidneys was performed with real-time and static madera-scale imaging. COMPARISON: None. FINDINGS: RIGHT KIDNEY: Normal location of the right kidney, which is normal in size. The right kidney measures 14 x 5.7 x 7 cm. There is a normal cortex of the right kidney. The renal cortex measures 1.3 cm. There is no right renal mass or cyst. There are no right renal calculi. There is no right hydronephrosis. DISTAL RIGHT URETER: There is non-visualization of the distal right ureter. There is no demonstrated right ureterovesical junction calculus. There is a visualized right ureteral jet. LEFT KIDNEY: Normal location of the left kidney, which is normal in size. The left kidney measures . 14.4 x 6.6 x 7.7 cm. There is a normal cortex of the left kidney. The renal cortex measures 2 cm. There is no left renal mass or cyst. There are no left renal calculi. There is no left hydronephrosis. DISTAL LEFT URETER: There is non-visualization of the distal left ureter. There is no demonstrated left ureterovesical junction calculus. There is a visualized left ureteral jet. 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 No evidence for renal obstruction Electronically Signed: Abhijit Kim MD at 16:59 EDT ,
--- NOTE | 2021-07-13 11:12 | CON.PCM.RE_ITS ---
Assessment & Plan Assessment/Plan (1) GAYE (acute kidney injury): (2) Debility: (3) MSSA bacteremia: (4) Hypertension: PLAN: We were consulted for acute kidney injury. Patient has normal baseline creatinine. Creatinine on 06/28/2021 0.96 mg/dL, next labs 07/05/2021 creatinine 1.42, gap in lab work until 07/12/2021 with creatinine 2.26 mg/dL and today 07/13/2021 creatinine 2.34 mg/dL. At this time the cause of GAYE unknown. Lasix was stopped and patient is on IV fluids. Creatinine may be leveling off. He does have pitting edema in his abdomen as well as some edema in bilateral thighs, patient denies any nausea, vomiting or diarrhea, will continue with IV fluids but decrease rate. Last albumin 1.1. Reviewed past UA which showed 30 protein. Patient had bladder scan post void done just now which did not show an y PVR however he is agreeable to Franco therefore we will place Franco to rule out obstructive process contributing to GAYE. Will obtain renal ultrasound. Will obtain urine and urine culture. At this time there is no acute indication for SWITCH OPERATORS SUPERVISOR. Will monitor renal function daily along with you. Labs ordered for the morning. Patient is on cefazolin for recent MSSA infection. Blood pressures have been relatively controlled on Lopressor and lasix. Slight elevation in BPs over last 24-48 hours, possibly from off of lasix and addition of IVF. If bps remain elevated, recommend avoiding GIUSEPPE-I or ARB at this time. Can increase lopressor if needed. Patient's hgb is 8.4. Hgb normal on admission, and then leveled off ~10-12. Unclear reason for acute drop in hgb. Labs ordered for am. Further orders forthcoming as hospitalization evolves, thank you for allowing us participate in the care of Mr. Harris. HPI Consult Data Date of Consult: 07/13/21 HPI Narrative HPI Narrative: MICHEAL HARRIS, is a 70 M who was recently admitted to hospital early June and treated for MSSA bacteremia. He was transferred to TCU mid-June. Patient has PMH significant for HTN, obesity, acute on chronic HFpEF with lower extremity edema, TTE shows EF 65%, hyperdynamic LV systolic function, stage I diastolic function SHLOMO negative for vegetation or mass. We were consulted for GAYE. Reviewed past Creatinine trends patient has normal Creatinine at baseline. Creatinine has recently risen over the past few days. On 06/28/2021 creatinine 0.96, 07/05/2021 creatinine 1.42 mg/dL, gap in lab work until 07/12/2021 creatinine 2.26 mg/dL and today 07/13/2021 creatinine 2.34 mg/dL. Patient was on oral Lasix 40 mg daily, this was stopped yesterday and patient was started on IV fluids due to rising creatinine. Patient currently denies any nausea or vomiting. Denies any dysuria or noting any hematuria. Patient feels he has been completely emptying his bladder when voids. Patient is up to chair via Vimal for a few hours during the day. No recent NSAIDs. [facility] Medical History (Updated 07/13/21 @ 11:21 by CHHAYA Medellin) 2019-nCoV vaccination declined Cellulitis Debility DVT (deep venous thrombosis) Fall HTN (hypertension) Leukocytosis Obesity Home Medications furosemide 40 mg PO DAILY 06/11/21 [History Last Taken Unknown] latanoprost 1 drp EACH EYE QHS 06/11/21 [History Last Taken 06/09/21] potassium chloride 10 meq PO DAILY 06/11/21 [History Last Taken 06/09/21] cefazolin 2 g IV Q8H 06/20/21 [History Last Taken Unknown] ipratropium-albuterol 3 ml INHALATION Q4HWA.RT PRN #0 ml 06/20/21 [Rx Last Taken Unknown] lidocaine HCl [Lidocaine Viscous] 20 ml PO Q3H PRN PRN #0 ml 06/20/21 [Rx Last Taken Unknown] nystatin 500,000 unit PO 4X/DAY 06/20/21 [History Last Taken Unknown] nystatin [Nyamyc] 1 applic TOPICAL BID 06/20/21 [History Last Taken Unknown] warfarin [Jantoven] 3 mg PO DINNER 06/20/21 [History Last Taken Unknown] Allergy/AdvReac Type Severity Reaction Status Date / Time No Known Allergies Allergy Verified 06/11/21 15:09 Surgical History History of left shoulder replacement Social History (Updated 06/20/21 @ 17:[address] Yobani Tidwell MD) household members: none Smoking Status: Never smoker alcohol intake: never substance use type: does not use ROS ROS Narrative As HPI and past medical history Physical Exam Narrative Const: Alert and oriented x3 HEENT: Head normocephalic, atraumatic, pupils equal round reactive to light, nasal mucosa is moist Respiratory: Lung sounds clear anteriorly and posteriorly Cardio: S1, S2, rhythm rate regular GI: Abdomen soft, nontender. Positive bowel sounds x4 quadrants. Pitting edema noted to abdominal wall Extremities: Giuseppe wraps to bilateral legs Lab / Micro Data Result Diagrams: 07/12/21 06:30 07/13/21 05:16 Labs: Laboratory Results - last 24 hr 07/12/21 11:05: POC Glucose 117 H 07/12/21 16:21: POC Glucose 125 H 07/12/21 21:47: POC Glucose 114 H 07/13/21 05:16: Sodium 137, Potassium 4.0, Chloride 107, Carbon Dioxide 27.0, Anion Gap 3 L, BUN 62 H, Creatinine 2.34 H, Estim Creat Clear Calc 26.89, Est GFR (MDRD) Af Amer 36 L, Est GFR (MDRD) Non-Af 30 L, BUN/Creatinine Ratio 26.5 H , Glucose 105, Calcium 9.5 07/13/21 06:06: POC Glucose 101 07/13/21 10:48: POC Glucose 141 H
[2021-07-13] MEDS: 0.9% Normal Saline 1,000 ML 50 ML IV (11:40)
[2021-07-13] MEDS: COVID-19 VACC, MRNA(PFIZER)/PF 30 MCG/0.3 ML SYRINGE IM (11:54)
[2021-07-13 13:17] LABS: Bacteria 0 SEEN /hpf (None Seen); Mucous, Urine 0 SEEN /hpf (<or=2+); Squamous Epithelial Cells - UA 0 SEEN /hpf (0-5)
[2021-07-13 13:21] LABS: Color, Urine Yellow (Yellow); Glucose, Dipstick Normal (Normal); Ketone-Dipstick 5 mg/dl (Negative); Leukocyte Esterase-Dipstick 25 /ul (Negative); Nitrite-Dipstick Negative (Negative); Occult Blood-Urine 250 /ul (Negative); Protein-Dipstick 100 mg/dl (Negative); Urine Bilirubin Dipstick Negative (Negative); Urine Clarity Cloudy (Clear); Urine Urobilinogen Normal (Normal)
[2021-07-13 13:28] LABS: Red Blood Cells-Urine > 100 SEEN /hpf (0-5); White Blood Cells 0-5 SEEN /hpf (0-5)
--- NOTE | 2021-07-13 14:20 | NURSING ---
Lucia BURNS from Dr. Valencia's office in today to see pt for consult. N.O. place thibodeaux catheter, U/a C&S, recheck labs tomorrow, decrease fluids to 50cc/hr, Kidney and Bladder US.
--- NOTE | 2021-07-13 14:30 | CASEMGMT ---
Addendum entered by Alicia Cummins 07/13/21 15:52: Received return phone call from héctor. Héctor requesting referrals to [facility], [facility] and [facility], in that order of preference. Once facilities accept, will determine DC but between 07/20 and 07/22. Referrals made. Will continue to follow. Original Note: Social Work Therapy spoke with héctor yesterday with updates on pt's progress and recommending DC date. This worker left message with ervinleif to set DC date and get SNF choices. Will continue to follow. MATEUSZ CordovaW
[2021-07-13 16:00] VITALS: BP 166/84; PULSE 89; RESP 12; TEMP 35.9; O2SAT 96
[2021-07-13 16:21] LABS: Bedside Glucose 221 mg/dL (74-106)
[2021-07-13 17:31] VITALS: PULSE 89
[2021-07-13] MEDS: Menthol/Lanolin/Calamine/Znox 113 GM Tube 1 APPLIC TOPICAL (17:33)
[2021-07-13] MEDS: Latanoprost 0.005% 1 Bottle 1 DRP EACH EYE (20:50)
[2021-07-13 21:25] LABS: Bedside Glucose 160 mg/dL (74-106)
--- NOTE | 2021-07-13 21:50 | NURSING ---
Patient continuous pulse ox alerting. Patient's Oxygen at 74%. Adjusted pulse oximeter with no improvement. Placed patient's Bipap on at this time. After a few moments, oxygen saturation increased to 93-94%. Called respiratory to have therapist come and check patient's mask on bipap d/t alarm sounding ,patient disconnected.
[2021-07-13 22:10] VITALS: PULSE 88; RESP 14; RESP 20; O2SAT 96
[2021-07-14 03:36] VITALS: PULSE 88; RESP 14; RESP 22; O2SAT 96
[2021-07-14] MEDS: Cefazolin 2 GM in 0.9% Normal Saline 100 ML IV ×3 (05:06→21:40)
[2021-07-14 05:37] VITALS: BP 155/89; PULSE 95
[2021-07-14] MEDS: Metoprolol Tartrate 25 MG Tablet 12.5 MG PO ×2 (05:37→17:10)
[2021-07-14] MEDS: Senna/Docusate Sodium 1 Tablet PO ×2 (05:37→17:11)
[2021-07-14] MEDS: Polyethylene Glycol 3350 17 GM PACKET PO (05:37)
[2021-07-14] MEDS: Acetaminophen 500 MG Tablet 1000 MG PO ×3 (05:37→20:01)
[2021-07-14] MEDS: Nystatin Powder 15gm Bottle 1 APPLIC TOPICAL ×2 (05:43→17:12)
[2021-07-14 05:57] LABS: Hemoglobin 8.3 g/dL (13.0-16.5)
--- NOTE | 2021-07-14 06:07 | NURSING ---
Patient removed the bipap at this time.
[2021-07-14 06:19] LABS: Anion Gap 4 (5-15); BUN 65 mg/dL (7-18); BUN/Creat Ratio 25.6 RATIO (10-20); Calcium,Total 9.7 mg/dL (8.5-10.1); Chloride 109 mmol/L (98-107); Creatinine, Serum 2.54 mg/dL (0.70-1.30); EST Glomerular Filtration Rate 27 mL/min (>60); Est Glom Filt Rate - Afr Amer 32 mL/min (>60); Estimated Creatinine Clearance 24.77 ml/min; Glucose 100 mg/dL (74-106); Potassium 4.1 mmol/L (3.5-5.1); Sodium Level 138 mmol/L (136-145)
[2021-07-14 06:36] LABS: Bedside Glucose 136 mg/dL (74-106)
[2021-07-14] MEDS: 0.9% Normal Saline 1,000 ML 50 ML IV (06:49)
[2021-07-14 07:10] VITALS: O2SAT 97
[2021-07-14] MEDS: Insulin Lispro 100 UNIT/ML INSULN.PEN SC ×3 (08:49→17:09)
[2021-07-14] MEDS: traMADol 50 MG Tablet PO (10:43)
--- NOTE | 2021-07-14 10:48 | PN.RENAL_ITS ---
Subjective Subjective Following for GAYE Patient resting in bed. No complaints. No overnight events Objective Data Objective Data Vital Signs: Vital Signs Temp Pulse Resp BP Pulse Ox 96.6 F L 95 22 H 155/89 H 97 07/13/21 16:00 07/14/21 05:37 07/14/21 03:36 07/14/21 05:37 07/14/21 07:10 Oxygen Flow Rate (L/min) 2 Oxygen Delivery Method Nasal Cannula Weight: 177.082 kg Body Mass Index (BMI) 57.7 Intake & Output: Intake and Output for Last 24 Hours 07/12/21 07/13/21 07/14/21 23:59 23:59 23:59 Intake Total 2086.67 / 2086.67 192 / 192 1437.5 / 1437.5 Output Total 600 / 600 Balance 2085.67 / 2085.67 1924 / 1924 837.5 / 837.5 Lab / Micro Data Result Diagrams: 07/14/21 05:13 07/14/21 05:13 Labs: Laboratory Results - last 24 hr 07/13/21 10:48: POC Glucose 141 H 07/13/21 13:09: Urine Color Yellow, Urine Clarity Cloudy, Urine pH 5.0, Ur Specific Sutton 1.020, Urine Protein 100 H, Urine Glucose (UA) Normal, Urine Ketones 5 H, Urine Occult Blood 250 H, Urine Nitrite Negative, Urine Bilirubin Negative, Urine Urobilinogen Normal, Ur Leukocyte Esterase 25 H, Urine RBC > 100 SEEN, Urine WBC 0-5 SEEN, Ur Squamous Epith Cells 0 SEEN, Urine Bacteria 0 SEEN, Urine Mucus 0 SEEN 07/13/21 16:12: POC Glucose 221 H 07/13/21 21:15: POC Glucose 160 H 07/14/21 05:13: Hgb 8.3 L, Hct 26.0 L 07/14/21 05:13: Sodium 138, Potassium 4.1, Chloride 109 H, Carbon Dioxide 25.0, Anion Gap 4 L, BUN 65 H, Creatinine 2.54 H, Estim Creat Clear Calc 24.77, Est GFR (MDRD) Af Amer 32 L, Est GFR (MDRD) Non-Af 27 L, BUN/Creatinine Ratio 25.6 H , Glucose 100, Calcium 9.7 07/14/21 06:12: POC Glucose 136 H Micro: Microbiology 07/13/21 13:09 Urine Catheter - Franco Urine Culture - Preliminary Culture exhibits no growth. 07/08/21 06:31 Nasal Secretion SARS-CoV-2 Antigen (Rapid) - Final 06/29/21 09:52 Blood Culture (Wb) - Anticubital Left Blood Culture - Final No growth in 5 days. 06/28/21 13:46 Blood Culture (Wb) - Anticubital Left Blood Culture - Final No growth in 5 days. 06/28/21 12:50 Blood Culture (Wb) - Anticubital Left Blood Culture - Final No growth in 5 days. 06/30/21 22:45 Urine, Clean Catch Urine Culture - Final Culture exhibits no growth. 06/21/21 18:11 Oral Lesion Herpes Simplex Virus Culture - Final 07/01/21 Unknown Nasal Secretion SARS-CoV-2 Antigen (Rapid) - Final 06/28/21 09:09 Urine Catheter - Catheter Urine Culture - Final Culture exhibits no growth. 06/23/21 23:15 Blood Culture (Wb) - Left Forearm Bacteria Detection (PCR) - Final Staphylococcus aureus 06/23/21 23:15 Blood Culture (Wb) - Left Forearm Blood Culture - Final Staphylococcus aureus 06/23/21 23:08 Blood Culture (Wb) - Anticubital Left Blood Culture - Final No growth in 5 days. 06/27/21 09:37 Nasal Secretion SARS-CoV-2 Antigen (Rapid) - Final 06/23/21 Unknown Urine, Catheterized Urine Culture - Final Culture exhibits no growth. 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 No evidence for renal obstruction Electronically Signed: Abhijit Kim MD at 16:59 EDT , Physical Exam Narrative Const: Alert and oriented x3 HEENT: Head normocephalic, atraumatic, pupils equal round reactive to light, nasal mucosa is moist Respiratory: Lung sounds clear anteriorly and posteriorly Cardio: S1, S2, rhythm rate regular GI: Abdomen soft, nontender. Positive bowel sounds x4 quadrants. Pitting edema noted to abdominal wall Extremities: Giuseppe wraps to bilateral legs, edema to thighs. Edema b/l arms L>R Assessment & Plan Assessment/Plan (1) GAYE (acute kidney injury): (2) Debility: (3) MSSA bacteremia: (4) Hypertension: PLAN: - Nonoliguric GAYE with normal baseline Creatinine. GAYE possibly from hemodynamic disturbance. SCr 06/28/2021 0.96 mg/dL, 07/05/2021 SCr 1.42, gap in lab work until 07/12/2021 SCr 2.26 mg/dL, 07/13/2021 SCr 2.34 mg/dL today SCr 2.54mg/dL. Lasix was stopped 07/12 and patient started on IV fluids 07/12. He does have pitting edema in his abdomen as well as some edema in bilateral thighs, and arms; patient and staff reports good appetite, no nausea or vomiting therefore will stop IVF today. - Last albumin 1.1 on 06/24. Check labs in am. - Reviewed past UA which showed 30 protein. UA 07/13: 100 protein, 250 occult bloo d, 25 leukocyte estrase. Urine cx pending - Renal US showed no hydro. 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 No hyperkalemia nor acidemia. Patient does have some third spacing of fluids. Check albumin in am - Patient is on cefazolin for recent MSSA infection. - Blood pressures have been relatively controlled on Lopressor and lasix. Slight elevation in BPs over last 24-48 hours, possibly from off of lasix and addition of IVF. Stop IVF today. If bps remain elevated, recommend avoiding GIUSEPPE-I or ARB at this time. Can increase lopressor if needed. - Patient's hgb is 8.3. Hgb normal on admission, and then leveled off ~10-12. Unclear reason for acute drop in hgb. Labs ordered for am. Check stool ob. Off coumadin and Xarelto
[2021-07-14 11:06] LABS: Bedside Glucose 144 mg/dL (74-106)
[2021-07-14] MEDS: 0.9% Saline Lock 10 ML Syringe IV ×3 (13:47→22:49)
[2021-07-14 15:45] VITALS: BP 154/82; PULSE 105; RESP 16; TEMP 36.1; O2SAT 95
[2021-07-14 16:20] LABS: Bedside Glucose 122 mg/dL (74-106)
[2021-07-14 17:10] VITALS: PULSE 105
[2021-07-14] MEDS: Menthol/Lanolin/Calamine/Znox 113 GM Tube 1 APPLIC TOPICAL (17:13)
[2021-07-14] MEDS: Latanoprost 0.005% 1 Bottle 1 DRP EACH EYE (20:02)
[2021-07-14 21:25] LABS: Bedside Glucose 133 mg/dL (74-106)
[2021-07-15] MEDS: Polyethylene Glycol 3350 17 GM PACKET PO (04:54)
[2021-07-15] MEDS: Senna/Docusate Sodium 1 Tablet PO ×2 (04:54→17:50)
[2021-07-15 04:55] VITALS: BP 190/92; PULSE 97
[2021-07-15] MEDS: Metoprolol Tartrate 25 MG Tablet 12.5 MG PO (04:55)
[2021-07-15] MEDS: Acetaminophen 500 MG Tablet 1000 MG PO ×3 (04:55→21:27)
[2021-07-15] MEDS: Nystatin Powder 15gm Bottle 1 APPLIC TOPICAL ×2 (04:55→17:53)
[2021-07-15] MEDS: Menthol/Lanolin/Calamine/Znox 113 GM Tube 1 APPLIC TOPICAL ×2 (04:55→17:53)
[2021-07-15 06:04] LABS: Albumin, Serum 1.1 g/dL (3.2-5.0); BUN 69 mg/dL (7-18); BUN/Creat Ratio 24.8 RATIO (10-20); Calcium,Total 9.3 mg/dL (8.5-10.1); Chloride 107 mmol/L (98-107); Creatinine, Serum 2.78 mg/dL (0.70-1.30); EST Glomerular Filtration Rate 24 mL/min (>60); Est Glom Filt Rate - Afr Amer 29 mL/min (>60); Estimated Creatinine Clearance 22.63 ml/min; Glucose 98 mg/dL (74-106); Phosphorus 3.2 mg/dL (2.5-4.9); Potassium 4.3 mmol/L (3.5-5.1); Sodium Level 136 mmol/L (136-145)
[2021-07-15 06:21] LABS: Bedside Glucose 105 mg/dL (74-106)
[2021-07-15 07:00] VITALS: O2SAT 95
[2021-07-15] MEDS: Insulin Lispro 100 UNIT/ML INSULN.PEN SC ×3 (08:12→17:49)
[2021-07-15] MEDS: traMADol 50 MG Tablet PO (10:30)
--- NOTE | 2021-07-15 10:48 | PCM.PN.REN ---
Subjective Subjective Following for GAYE Today patient denies any complaints. Denies any nausea or vomiting. No diarrhea. Objective Data Objective Data Vital Signs: Vital Signs Temp Pulse Resp BP Pulse Ox 96.9 F L 97 16 190/92 H 95 07/14/21 15:45 07/15/21 04:55 07/14/21 15:45 07/15/21 04:55 07/15/21 07:00 Oxygen Flow Rate (L/min) 2 Oxygen Delivery Method Nasal Cannula Weight: 177.082 kg Body Mass Index (BMI) 57.7 Intake & Output: Intake and Output for Last 24 Hours 07/13/21 07/14/21 07/15/21 23:59 23:59 23:59 Intake Total 1924 / 192 2481.67 / 2481.67 240 / 240 Output Total 1350 / 1350 250 / 250 Balance 1924 / 1924 1131.67 / 1131.67 -10 / -10 Lab / Micro Data Result Diagrams: 07/14/21 05:13 07/15/21 05:11 Labs: Laboratory Results - last 24 hr 07/14/21 10:49: POC Glucose 144 H 07/14/21 16:14: POC Glucose 122 H 07/14/21 21:19: POC Glucose 133 H 07/15/21 05:11: Sodium 136, Potassium 4.3, Chloride 107, Carbon Dioxide 26.0, BUN 69 H, Creatinine 2.78 H, Estim Creat Clear Calc 22.63, Est GFR (MDRD) Af Amer 29 L, Est GFR (MDRD) Non-Af 24 L, BUN/Creatinine Ratio 24.8 H, Glucose 98, Calcium 9.3, Phosphorus 3.2, Albumin 1.1 L 07/15/21 06:05: POC Glucose 105 Micro: Microbiology 07/14/21 20:00 Stool Stool Occult Blood (DAMIAN) - Final Occult Blood Positive 07/13/21 13:09 Urine Catheter - Franco Urine Culture - Preliminary Culture exhibits no growth. 07/08/21 06:31 Nasal Secretion SARS-CoV-2 Antigen (Rapid) - Final 06/29/21 09:52 Blood Culture (Wb) - Anticubital Left Blood Culture - Final No growth in 5 days. 06/28/21 13:46 Blood Culture (Wb) - Anticubital Left Blood Culture - Final No growth in 5 days. 06/28/21 12:50 Blood Culture (Wb) - Anticubital Left Blood Culture - Final No growth in 5 days. 06/30/21 22:45 Urine, Clean Catch Urine Culture - Final Culture exhibits no growth. 06/21/21 18:11 Oral Lesion Herpes Simplex Virus Culture - Final 07/01/21 Unknown Nasal Secretion SARS-CoV-2 Antigen (Rapid) - Final 06/28/21 09:09 Urine Catheter - Catheter Urine Culture - Final Culture exhibits no growth. 06/23/21 23:15 Blood Culture (Wb) - Left Forearm Bacteria Detection (PCR) - Final Staphylococcus aureus 06/23/21 23:15 Blood Culture (Wb) - Left Forearm Blood Culture - Final Staphylococcus aureus 06/23/21 23:08 Blood Culture (Wb) - Anticubital Left Blood Culture - Final No growth in 5 days. 06/27/21 09:37 Nasal Secretion SARS-CoV-2 Antigen (Rapid) - Final 06/23/21 Unknown Urine, Catheterized Urine Culture - Final Culture exhibits no growth. 06/21/21 17:07 Other - Mouth Miscellaneous Culture - Final Presumptive C albicans 06/21/21 17:07 Other - Mouth Gram Stain - Final 06/23/21 22:59 Mucosa - Nasopharyngeal Respiratory Panel (PCR) - Final Physical Exam Narrative Const: Alert and oriented x3 HEENT: Head normocephalic, atraumatic, pupils equal round reactive to light, nasal mucosa is moist Respiratory: Lung sounds clear anteriorly and posteriorly Cardio: S1, S2, rhythm rate regular GI: Abdomen soft, nontender. Positive bowel sounds x4 quadrants. Pitting edema noted across abdominal wall Extremities: Pitting edema bilateral legs, edema to thighs. Edema b/l arms L>R Assessment & Plan Assessment/Plan (1) GAYE (acute kidney injury): (2) Debility: (3) MSSA bacteremia: (4) Hypertension: PLAN: - Nonoliguric GAYE with normal baseline Creatinine. GAYE possibly from hemodynamic disturbance, possible infection related. SCr 06/28/2021 0.96 mg/dL, 07/05/2021 SCr 1.42, gap in lab work until 07/12/2021 SCr 2.26 mg/dL, 07/13/2021 SCr 2.34 mg/dL today SCr 2.78mg/dL. Lasix was stopped 07/12 and patient started on IV fluids 07/12. He does have pitting edema in his abdomen as well as some edema in bilateral thighs, and arms; patient and staff reports good appetite, no nausea, vomiting, or diarrhea therefore IVF stopped 07/14. -Albumin 1.1. Will check urine protein creatinine ratio. Complements pending - Reviewed past UA which showed 30 protein. UA 07/13: 100 protein, 250 occult blood, 25 leukocyte estrase (this urine sample collected after Franco inserted). Urine cx so far no growth - Renal US showed no hydro. 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 No hyperkalemia nor acidemia. Patient does have some third spacing of fluids. - Patient was on cefazolin for recent MSSA infection. Currently off antibiotics - Blood pressures have been relatively controlled on Lopressor and lasix. Slight elevation in BPs over last 24-48 hours, possibly from off of lasix and addition of IVF. Stopped IVF. Blood pressure elevated today, will increase Lopressor. Recommend avoiding SHELLI-I or ARB at this time. - Patient's hgb is 8.3. Hgb normal on admission, and then leveled off ~10-12. Unclear reason for acute drop in hgb. Labs ordered for am. +stool ob. Off coumadin and Xarelto
[2021-07-15 11:15] LABS: Bedside Glucose 160 mg/dL (74-106)
[2021-07-15 11:41] LABS: Protein, Urine (Random) 206.2 mg/dL (<11.9); Protein:Creat Ratio 2617 mg/g CRE (0-200)
[2021-07-15 12:50] VITALS: O2SAT 96
[2021-07-15 13:47] VITALS: BP 148/68; PULSE 89; RESP 16; TEMP 36.1; O2SAT 96
[2021-07-15] MEDS: 0.9% Saline Lock 10 ML Syringe IV (14:28)
[2021-07-15 15:40] LABS: Bedside Glucose 122 mg/dL (74-106)
[2021-07-15 17:51] VITALS: PULSE 89
[2021-07-15] MEDS: Metoprolol Tartrate 25 MG Tablet PO (17:51)
--- NOTE | 2021-07-15 18:18 | CASEMGMT ---
Social Work [facility] can accept. [facility] cannot. Spoke with niece and first choice is [facility]. [facility]/niece/pt agreeable to DC 07/21. [facility] transport scheduled through [facility] for 1 pm as niece is off work in the afternoon. PASRR completed. Plan: DC 07/21 [facility], nonskilled, private pay MATEUSZ CordovaW
[2021-07-15] MEDS: Latanoprost 0.005% 1 Bottle 1 DRP EACH EYE (21:27)
[2021-07-16] VITALS (8 sets, daily range): BP systolic 151–183; BP diastolic 87–88; PULSE 90–96; RESP 14–24; TEMP 36.1; O2SAT 92–99
[2021-07-16] MEDS: Polyethylene Glycol 3350 17 GM PACKET PO (05:48)
[2021-07-16] MEDS: Acetaminophen 500 MG Tablet 1000 MG PO (05:50)
[2021-07-16] MEDS: Metoprolol Tartrate 25 MG Tablet PO ×2 (05:50→17:34)
[2021-07-16] MEDS: Senna/Docusate Sodium 1 Tablet PO (05:51)
[2021-07-16] MEDS: Nystatin Powder 15gm Bottle 1 APPLIC TOPICAL ×2 (05:53→17:32)
[2021-07-16] MEDS: Menthol/Lanolin/Calamine/Znox 113 GM Tube 1 APPLIC TOPICAL ×2 (05:53→17:25)
[2021-07-16 06:21] LABS: Bedside Glucose 91 mg/dL (74-106)
[2021-07-16 06:23] LABS: Albumin, Serum 1.1 g/dL (3.2-5.0); BUN 74 mg/dL (7-18); BUN/Creat Ratio 25.5 RATIO (10-20); Calcium,Total 9.6 mg/dL (8.5-10.1); Chloride 108 mmol/L (98-107); EST Glomerular Filtration Rate 23 mL/min (>60); Est Glom Filt Rate - Afr Amer 28 mL/min (>60); Estimated Creatinine Clearance 21.69 ml/min; Glucose 97 mg/dL (74-106); Phosphorus 3.3 mg/dL (2.5-4.9); Potassium 4.7 mmol/L (3.5-5.1); Sodium Level 137 mmol/L (136-145)
[2021-07-16] MEDS: Insulin Lispro 100 UNIT/ML INSULN.PEN SC ×3 (08:15→17:33)
--- NOTE | 2021-07-16 08:18 | NURSING ---
THIS NURSE LEFT A NOTE ON PT WEIGHT GAIN. 06/22/21 359 LBS, 07/15/21 399 LBS. RN AWARE
--- NOTE | 2021-07-16 08:22 | PCM.DC.SUM ---
Providers Date of Admission: 06/20/21 Primary Care Physician: Dr. Maury Harley, DO Consultations 06/20/21 17:04 Consult: Infectious Disease Routine Consulting Provider: Osmany Gallardo Reason for Consult: Continuation from [place], Dr. Gallardo managing. EMERGENT Consult: No Notified: Yes Date Notified: 06/20/21 Time Notified: 17:04 Method of Notification: Verbal 07/13/21 08:11 Consult: Nephrology Routine Consulting Provider: Ciarra Valencia Reason for Consult: Acute kidney failure EMERGENT Consult: No Notified: Yes Date Notified: 07/13/21 Time Notified: 08:11 Method of Notification: phonecall Reason For Visit: DEBILITY Diagnosis Discharge Diagnosis (1) GAYE (acute kidney injury): Status: Acute Code(s): N17.9 - Acute kidney failure, unspecified (2) Debility: Status: Acute Code(s): R53.81 - Other malaise (3) MSSA bacteremia: Status: Acute Code(s): R78.81 - Bacteremia; B95.61 - Methicillin susceptible Staphylococcus aureus infection as the cause of diseases classified elsewhere (4) Hypertension: Status: Chronic Code(s): I10 - Essential (primary) hypertension Medications at Discharge Home Medications latanoprost 1 drp EACH EYE QHS 06/11/21 ipratropium-albuterol 3 ml INHALATION Q4HWA.RT PRN #0 ml 06/20/21 nystatin [Nyamyc] 1 applic TOPICAL BID 06/20/21 insulin lispro [Humalog KwikPen Insulin] 5 unit SUBCUT TIDAC #0 ml 07/16/21 menthol-zinc oxide [Calmoseptine] 1 applic TOPICAL BID #0 g 07/16/21 metoprolol tartrate 25 mg PO BID #0 tab 07/16/21 rivaroxaban [Xarelto] 10 mg PO DINNER #0 tab 07/16/21 Hospital Course Operations None Procedures None Summary of Care Provided Minutes Spent on Discharge: 35 Hospital Course: 70 year old male with below past medical history hospitalized for fall secondary to MSSA bacteremia, endocarditis ruled out, complicated by acute on chronic diastolic congestive heart failure, undiagnosed obstructive sleep apnea, admitted to TCU with debility, here for rehabilitation, 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 Resident creatinine 0.96 06/28/2021, creatinine 2.90 07/16/2021. [facility] consulted. Resident will need Nephrology follow up after discharge. Resident has tongue mass concerning for cancer, follow up with Dr. Schrader after discharge. Discharge to [facility] 07/21/2021, nonskilled, private pay. Physical Exam Const alert General Appearance: cooperative HEENT normocephalic Eyes PERRL and EOMs intact bilaterally Neck supple, no JVD and no carotid bruits Resp normal respiratory effort, normal air movement and clear to auscultation bilaterally Cardio regular rate and regular rhythm GI normal to inspection, nondistended, normoactive bowel sounds, non-tender and non-distended Extremity normal capillary refill General Extremity: edema bilateral Skin no rashes or lesions noted General Skin Exam: no breakdown Psych affect normal Appearance: appropriate Weight / BMI Weight Weight: 181.074 kg Body Mass Index (BMI) 57.7 ABG / Lab / Microbiology Data Result Diagrams: 07/14/21 05:13 07/16/21 05:11 Laboratory: Laboratory Results - last 24 hr 07/15/21 10:00: U Random Total Protein 206.2 H, Urine Creatinine 78.80, Protein/Creatinin Ratio 2617 H 07/15/21 10:43: POC Glucose 160 H 07/15/21 15:32: POC Glucose 122 H 07/16/21 05:11: Sodium 137, Potassium 4.7, Chloride 108 H, Carbon Dioxide 24.0, BUN 74 H, Creatinine 2.90 H, Estim Creat Clear Calc 21.69, Est GFR (MDRD) Af Amer 28 L, Est GFR (MDRD) Non-Af 23 L, BUN/Creatinine Ratio 25.5 H, Glucose 97, Calcium 9.6, Phosphorus 3.3, Albumin 1.1 L 07/16/21 06:11: POC Glucose 91 Microbiology: Microbiology 07/13/21 13:09 Urine Catheter - Franco Urine Culture - Final Culture exhibits no growth. 07/14/21 20:00 Stool Stool Occult Blood (DAMIAN) - Final Occult Blood Positive 07/08/21 06:31 Nasal Secretion SARS-CoV-2 Antigen (Rapid) - Final 06/29/21 09:52 Blood Culture (Wb) - Anticubital Left Blood Culture - Final No growth in 5 days. 06/28/21 13:46 Blood Culture (Wb) - Anticubital Left Blood Culture - Final No growth in 5 days. 06/28/21 12:50 Blood Culture (Wb) - Anticubital Left Blood Culture - Final No growth in 5 days. 06/30/21 22:45 Urine, Clean Catch Urine Culture - Final Culture exhibits no growth. 06/21/21 18:11 Oral Lesion Herpes Simplex Virus Culture - Final 07/01/21 Unknown Nasal Secretion SARS-CoV-2 Antigen (Rapid) - Final 06/28/21 09:09 Urine Catheter - Catheter Urine Culture - Final Culture exhibits no growth. 06/23/21 23:15 Blood Culture (Wb) - Left Forearm Bacteria Detection (PCR) - Final Staphylococcus aureus 06/23/21 23:15 Blood Culture (Wb) - Left Forearm Blood Culture - Final Staphylococcus aureus 06/23/21 23:08 Blood Culture (Wb) - Anticubital Left Blood Culture - Final No growth in 5 days. 06/27/21 09:37 Nasal Secretion SARS-CoV-2 Antigen (Rapid) - Final 06/23/21 Unknown Urine, Catheterized Urine Culture - Final Culture exhibits no growth. 06/21/21 17:07 Other - Mouth Miscellaneous Culture - Final Presumptive C albicans 06/21/21 17:07 Other - Mouth Gram Stain - Final 06/23/21 22:59 Mucosa - Nasopharyngeal Respiratory Panel (PCR) - Final D/C Instructions Discharge Diet: No restrictions Discharge Activity: Use Walker Weight Bearing Status: Weight bearing as tolerated Call your doctor if you observe: Fever of 101 or Higher, Inability to urinate, Inability to have a bowel movement, Shortness of breath, Dizziness, Fainting spells, Swelling in the ankles, Chest pain and Uncontrolled pain Additional Instructions: Discharge to [facility] 07/21/2021, nonskilled, private pay. Please Follow Up With: Dr. Schrader When: As scheduled. Meaningful Use Info Meaningful Use Diagnoses (Choose all that apply): None applicable Discharge Plan Admission Admit Date/Time: 06/20/21 16:28 Primary Reason for Your Visit: Debility. Attending Provider: Yobani Tidwell Chi Primary Care Provider: Maury Harley Consulting Providers: Osmany Gallardo ; Ciarra Valencia Instructions Additional Instructions / Restrictions: Discharge to [facility] 07/21/2021, nonskilled, private pay. Discharge Orders/Prescriptions Prescriptions: New insulin lispro [Humalog KwikPen Insulin] 100 unit/mL Insulin Pen 5 unit subcut TIDAC Qty: 0 RF: 0 metoprolol tartrate 25 mg Tablet 25 mg PO BID Qty: 0 RF: 0 menthol-zinc oxide [Calmoseptine] 0.44-20.6 % Ointment 1 applic topical BID Qty: 0 RF: 0 Xarelto 10 mg Tablet 10 mg PO DINNER Qty: 0 RF: 0 Continued latanoprost 0.005 % drops 1 drp EACH EYE QHS RF: 0 ipratropium-albuterol 0.5 mg-3 mg(2.5 mg base)/3 mL Solution For Nebulization 3 ml inhalation Q4HWA.RT PRN (Reason: SOB) Qty: 0 RF: 0 nystatin [Nyamyc] 100,000 unit/gram powder 1 applic topical BID RF: 0 Discontinued furosemide 40 mg tablet 40 mg PO DAILY RF: 0 potassium chloride 10 mEq tablet extended release 10 meq PO DAILY RF: 0 lidocaine HCl [Lidocaine Viscous] 2 % Solution 20 ml PO Q3H PRN PRN (Reason: oral burning pain) Qty: 0 RF: 0 nystatin 100,000 unit/mL suspension 500,000 unit PO 4X/DAY RF: 0 cefazolin 1 gram recon soln 2 g IV Q8H RF: 0 warfarin [Jantoven] 3 mg tablet 3 mg PO DINNER RF: 0 Referrals / Follow Up: Maury Harley, [Primary Care Provider] - Disposition Disposition (needs filled in before D/C Order can be placed): NonSkilled [place]/[facility]
--- NOTE | 2021-07-16 08:29 | PCM.TXEXTCAR ---
Diet 06/21/21 12:22 Carb [Diet: Carbohydrate Controlled] Food consistency:: Regular Liquid Consistency:: Regular/Thin Dietary Modifications:: Sodium Restricted Is pt able to select menu?: Yes Diet Comments: 1-2 extra oz protein w/ meals tid Routine Orders/Code Status Routine Lab Work: BMP Code Status: Full Code Wound(s) left calf: Wound Type: Stasis Ulcer Dressing Change: AntiMicrobial (Aquacel AG, etc) left thigh: Wound Type: blisters rt flank: Wound Type: blister left hand: Wound Type: blisters shanna cleft: Wound Type: moisture associated skin damage Dressing Change: triad cream upper back: Wound Type: skin tag scratch Dressing Change: band aid LEFT INNER BUTT CHEEK: Wound Type: shearing Dressing Change: triad cream scrotum: Wound Type: blisters Left temporal Area (scab): Wound Type: scab Therapies Weight Bearing: Weight bearing as tolerated Extremity Affected:: Bilateral Lower Problem/Diagnosis (1) GAYE (acute kidney injury): Status: Acute (2) Debility: Status: Acute (3) MSSA bacteremia: Status: Acute (4) Hypertension: Status: Chronic Allergies/Procedures Done in Hospital Allergies No Known Allergies Allergy (Verified 06/11/21 15:09) Procedures: None Type of Care/Length of Stay Estimated LOS: More Than 30 Days Type of Care Needed: Intermediate Rehab Potential: Poor Prognosis: Poor Additional Orders/Day of Discharge Day of Discharge: 07/21/21 Dietary and Speech Recommendations Dietitian Recommendations/Changes: Will continue CHO Controlled, sodium restricted diet w/ 1-2 extra oz protein w/ meals Will provide additional diet info if warranted by pt. Follow Up Care Please Follow Up With: Dr. Schrader When: As scheduled. Please Follow Up With: Ciarra Valencia MD When: 1 week. Discharge Plan Admission Admit Date/Time: 06/20/21 16:28 Primary Reason for Your Visit: Debility. Attending Provider: Yobani Tidwell Chi Primary Care Provider: Maury Harley Consulting Providers: Osmany Gallardo ; Ciarra Valencia Instructions Additional Instructions / Restrictions: Discharge to [facility] 07/21/2021, nonskilled, private pay. Discharge Orders/Prescriptions Prescriptions: New insulin lispro [Humalog KwikPen Insulin] 100 unit/mL Insulin Pen 5 unit subcut TIDAC Qty: 0 RF: 0 metoprolol tartrate 25 mg Tablet 25 mg PO BID Qty: 0 RF: 0 menthol-zinc oxide [Calmoseptine] 0.44-20.6 % Ointment 1 applic topical BID Qty: 0 RF: 0 Xarelto 10 mg Tablet 10 mg PO DINNER Qty: 0 RF: 0 Continued latanoprost 0.005 % drops 1 drp EACH EYE QHS RF: 0 ipratropium-albuterol 0.5 mg-3 mg(2.5 mg base)/3 mL Solution For Nebulization 3 ml inhalation Q4HWA.RT PRN (Reason: SOB) Qty: 0 RF: 0 nystatin [Nyamyc] 100,000 unit/gram powder 1 applic topical BID RF: 0 Discontinued furosemide 40 mg tablet 40 mg PO DAILY RF: 0 potassium chloride 10 mEq tablet extended release 10 meq PO DAILY RF: 0 lidocaine HCl [Lidocaine Viscous] 2 % Solution 20 ml PO Q3H PRN PRN (Reason: oral burning pain) Qty: 0 RF: 0 nystatin 100,000 unit/mL suspension 500,000 unit PO 4X/DAY RF: 0 cefazolin 1 gram recon soln 2 g IV Q8H RF: 0 warfarin [Jantoven] 3 mg tablet 3 mg PO DINNER RF: 0 Referrals / Follow Up: Maury Harley DO [Primary Care Provider] - Disposition Disposition (needs filled in before D/C Order can be placed): [facility]Skilled [facility]
--- NOTE | 2021-07-16 09:26 | NURSING ---
PT PICKED UP BY [facility] AT THIS TIME BY COT TO ENT APPOINTMENT.
--- NOTE | 2021-07-16 10:32 | NURSING ---
pt returned from Dr moran with sister. pt and sister were not given any paperwork from the Dr. moran, but did receive two presriptions.
[2021-07-16] MEDS: Ipratropium/Albuterol Sulfate 3 ML AMPUL.NEB INHALATION ×2 (10:35→21:45)
[2021-07-16] MEDS: traMADol 50 MG Tablet PO (10:35)
[2021-07-16 11:21] LABS: Bedside Glucose 125 mg/dL (74-106)
[2021-07-16 13:31] LABS: Complement C3 147 mg/dL (82-167)
--- NOTE | 2021-07-16 15:21 | NURSING ---
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 RN AWARE
[2021-07-16 16:15] LABS: Bedside Glucose 109 mg/dL (74-106)
[2021-07-16] MEDS: Mupirocin Ointment 22gm Tube 1 APPLIC TOPICAL (17:25)
[2021-07-16] MEDS: Latanoprost 0.005% 1 Bottle 1 DRP EACH EYE (21:12)
[2021-07-16 22:16] LABS: Bedside Glucose 170 mg/dL (74-106)
[2021-07-17] VITALS (8 sets, daily range): BP systolic 148–154; BP diastolic 84–85; PULSE 91–102; RESP 14–24; TEMP 36.6; O2SAT 94–99
[2021-07-17] MEDS: Menthol/Lanolin/Calamine/Znox 113 GM Tube 1 APPLIC TOPICAL ×2 (05:25→17:43)
[2021-07-17] MEDS: Mupirocin Ointment 22gm Tube 1 APPLIC TOPICAL ×2 (05:25→17:41)
[2021-07-17] MEDS: 0.9% Saline Lock 10 ML Syringe IV (05:26)
[2021-07-17] MEDS: Nystatin Powder 15gm Bottle 1 APPLIC TOPICAL ×2 (05:26→17:43)
[2021-07-17] MEDS: Pantoprazole Sodium 40 MG Tablet PO (05:28)
[2021-07-17] MEDS: Metoprolol Tartrate 25 MG Tablet PO ×2 (05:28→17:43)
[2021-07-17 06:30] LABS: Bedside Glucose 87 mg/dL (74-106)
[2021-07-17 07:57] LABS: Albumin, Serum 1.1 g/dL (3.2-5.0); BUN 77 mg/dL (7-18); BUN/Creat Ratio 25.7 RATIO (10-20); Calcium,Total 9.9 mg/dL (8.5-10.1); Chloride 110 mmol/L (98-107); EST Glomerular Filtration Rate 22 mL/min (>60); Est Glom Filt Rate - Afr Amer 27 mL/min (>60); Estimated Creatinine Clearance 20.97 ml/min; Glucose 106 mg/dL (74-106); Phosphorus 3.4 mg/dL (2.5-4.9); Potassium 4.9 mmol/L (3.5-5.1); Sodium Level 138 mmol/L (136-145)
[2021-07-17] MEDS: Insulin Lispro 100 UNIT/ML INSULN.PEN SC ×3 (08:24→17:39)
--- NOTE | 2021-07-17 10:52 | PCM.PN.REN ---
Subjective Subjective Following for GAYE. The patient denies increasing shortness of breath. There has been no nausea, vomiting, or diarrhea. Edema has increased in the lower extremities. Objective Data Objective Data Vital Signs: Vital Signs Temp Pulse Resp BP Pulse Ox 96.9 F L 99 23 H 148/84 H 96 07/16/21 14:46 07/17/21 05:28 07/17/21 02:03 07/17/21 05:28 07/17/21 02:03 Oxygen Flow Rate (L/min) 2 Oxygen Delivery Method Room Air Weight: 181.074 kg Body Mass Index (BMI) 57.7 Intake & Output: Intake and Output for Last 24 Hours 07/15/21 07/16/21 07/17/21 23:59 23:59 23:59 Intake Total 720 / 720 960 / 960 240 / 240 Output Total 900 / 900 2050 / 2050 275 / 275 Balance -180 / -180 -1090 / -1090 -35 / -35 Lab / Micro Data Result Diagrams: 07/14/21 05:13 07/17/21 07:27 Labs: Laboratory Results - last 24 hr 07/15/21 05:11: Complement C3 147, Complement C4 32 07/16/21 11:03: POC Glucose 125 H 07/16/21 16:09: POC Glucose 109 H 07/16/21 22:10: POC Glucose 170 H 07/17/21 06:22: POC Glucose 87 07/17/21 07:27: Sodium 138, Potassium 4.9, Chloride 110 H, Carbon Dioxide 25.0, BUN 77 H, Creatinine 3.00 H, Estim Creat Clear Calc 20.97, Est GFR (MDRD) Af Amer 27 L, Est GFR (MDRD) Non-Af 22 L, BUN/Creatinine Ratio 25.7 H, Glucose 106, Calcium 9.9, Phosphorus 3.4, Albumin 1.1 L Micro: Microbiology 07/13/21 13:09 Urine Catheter - Franco Urine Culture - Final Culture exhibits no growth. 07/14/21 20:00 Stool Stool Occult Blood (DAMIAN) - Final Occult Blood Positive 07/08/21 06:31 Nasal Secretion SARS-CoV-2 Antigen (Rapid) - Final 06/29/21 09:52 Blood Culture (Wb) - Anticubital Left Blood Culture - Final No growth in 5 days. 06/28/21 13:46 Blood Culture (Wb) - Anticubital Left Blood Culture - Final No growth in 5 days. 06/28/21 12:50 Blood Culture (Wb) - Anticubital Left Blood Culture - Final No growth in 5 days. 06/30/21 22:45 Urine, Clean Catch Urine Culture - Final Culture exhibits no growth. 06/21/21 18:11 Oral Lesion Herpes Simplex Virus Culture - Final 07/01/21 Unknown Nasal Secretion SARS-CoV-2 Antigen (Rapid) - Final 06/28/21 09:09 Urine Catheter - Catheter Urine Culture - Final Culture exhibits no growth. 06/23/21 23:15 Blood Culture (Wb) - Left Forearm Bacteria Detection (PCR) - Final Staphylococcus aureus 06/23/21 23:15 Blood Culture (Wb) - Left Forearm Blood Culture - Final Staphylococcus aureus 06/23/21 23:08 Blood Culture (Wb) - Anticubital Left Blood Culture - Final No growth in 5 days. 06/27/21 09:37 Nasal Secretion SARS-CoV-2 Antigen (Rapid) - Final 06/23/21 Unknown Urine, Catheterized Urine Culture - Final Culture exhibits no growth. 06/21/21 17:07 Other - Mouth Miscellaneous Culture - Final Presumptive C albicans 06/21/21 17:07 Other - Mouth Gram Stain - Final 06/23/21 22:59 Mucosa - Nasopharyngeal Respiratory Panel (PCR) - Final Physical Exam Narrative Const: Alert and oriented x3 HEENT: Head normocephalic, atraumatic, pupils equal round reactive to light, nasal mucosa is moist Respiratory: Lung sounds clear anteriorly Cardio: S1, S2, rhythm rate regular GI: Abdomen soft, nontender. Positive bowel sounds x4 quadrants. Pitting edema noted across abdominal wall Extremities: 4+ edema bilateral legs, edema to thighs. Edema b/l arms L>R, anasarca Assessment & Plan Assessment/Plan (1) GAYE (acute kidney injury): (2) Debility: (3) MSSA bacteremia: (4) Hypertension: PLAN: - Nonoliguric GAYE with normal baseline renal function. -GAYE possibly from low intravascular volume with serum albumin of 1.1 g/dL. -GAYE could possibly be infection related glomerulonephritis since there is persistent microscopic hematuria and proteinuria. However, C3 and C4 are normal. SCr 06/28/2021 0.96 mg/dL, 07/05/2021 SCr 1.42, gap in lab work until 07/12/2021 SCr 2.26 mg/dL, 07/13/2021 SCr 2.34 mg/dL 07/15/2021 SCr 2.78mg/dL, and today SCr 3.00 mg/dL. -Lasix was stopped 07/12 and patient started on IV fluids 07/12. He does have anasarca. Patient and staff reports good appetite, no nausea, vomiting, or diarrhea, so IVF stopped 07/14. -Albumin 1.1. Urine protein to creatinine ratio is 2617 mg/g. -Renal US showed no hydro. -No acute indication for kidney replacement therapy. There is no hyperkalemia nor acidosis. The patient is volume overloaded, but difficult to ascertain whether there is adequate intravascular/effective blood volume. -We will hold off on further diuresis or fluid for now. -Continue current supportive care. -Recheck labs on 07/19/2021. If renal function continues to worsen, the patient may need to be moved back to the hospital for more expedited work-up including possible renal biopsy. -Medications are reviewed. Medications are reviewed and are all appropriately dosed for his decreased renal function.
[2021-07-17] MEDS: traMADol 50 MG Tablet PO (10:53)
--- NOTE | 2021-07-17 10:53 | NURSING ---
Addendum entered by Shayna Barton 07/17/21 11:30: dr Airta aware of wt gain. Original Note: INTO SEE PT TODAY. RN AWARE
[2021-07-17 11:56] LABS: Bedside Glucose 129 mg/dL (74-106)
--- NOTE | 2021-07-17 13:52 | NURSING ---
THIS NURSE SHAVED AND WASHED PT HAIR.
[2021-07-17 16:06] LABS: Bedside Glucose 141 mg/dL (74-106)
[2021-07-17] MEDS: Rivaroxaban 10 MG Tablet PO (17:42)
[2021-07-17] MEDS: Ipratropium/Albuterol Sulfate 3 ML AMPUL.NEB INHALATION (17:55)
[2021-07-17] MEDS: Latanoprost 0.005% 1 Bottle 1 DRP EACH EYE (20:30)
[2021-07-17 21:26] LABS: Bedside Glucose 124 mg/dL (74-106)
--- NOTE | 2021-07-17 23:00 | NURSING ---
Pt's bipap alarming, in to check, pt has mask in hands and states he does not want it on for awhile. POX remains 93-96%. Informed pt he can take it off for awhile but if his pox drops we'll need to put it back on, pt agreeable, denies further needs, will continue to monitor.
[2021-07-18] VITALS (10 sets, daily range): BP systolic 156; BP diastolic 84–95; PULSE 89–105; RESP 14–26; TEMP 36.1–36.8; O2SAT 96–99
[2021-07-18] MEDS: Menthol/Lanolin/Calamine/Znox 113 GM Tube 1 APPLIC TOPICAL ×2 (05:19→16:59)
[2021-07-18] MEDS: Nystatin Powder 15gm Bottle 1 APPLIC TOPICAL ×2 (05:20→17:00)
[2021-07-18] MEDS: Mupirocin Ointment 22gm Tube 1 APPLIC TOPICAL ×2 (05:20→17:01)
[2021-07-18] MEDS: Pantoprazole Sodium 40 MG Tablet PO (05:22)
[2021-07-18] MEDS: Metoprolol Tartrate 25 MG Tablet PO ×2 (05:22→17:01)
[2021-07-18] MEDS: Ipratropium/Albuterol Sulfate 3 ML AMPUL.NEB INHALATION ×2 (05:34→14:25)
[2021-07-18] MEDS: 0.9% Saline Lock 10 ML Syringe IV (05:57)
--- NOTE | 2021-07-18 06:11 | NURSING ---
Continuous POX alarming, POX reads 88%, pt agreeable to put bipap back on for awhile. Applied. Will continue to monitor.
[2021-07-18 06:26] LABS: Bedside Glucose 118 mg/dL (74-106)
[2021-07-18] MEDS: Insulin Lispro 100 UNIT/ML INSULN.PEN SC ×3 (07:51→17:22)
[2021-07-18] MEDS: traMADol 50 MG Tablet PO (10:19)
[2021-07-18 10:51] LABS: Bedside Glucose 120 mg/dL (74-106)
--- NOTE | 2021-07-18 11:56 | NURSING ---
CALLED,ASKED FOR UPDATE ON PT AND STATED HE OR SOME ONE ELSE WILL BE IN TO SEE PT TOMORROW. RN AWARE
--- NOTE | 2021-07-18 14:54 | NURSING ---
Addendum entered by Shayna Barton 07/18/21 18:04: dr lee updated on scrotal and penis edema. also made him aware that Dr Arita may transfer pt from TCU to acute care tomorrow depending on labs Original Note: THIS NURSE AND SILK SCREEN PRINTER IN ROOM TO REPOSITION AND CHECK AND CHANGE PT. PT HAD GOWN OFF AND STATED HE WAS HOT. TEMP CHECKED AND NORMAL. PT PENIS AND TESTICLES SWOLLEN,NON PITTING. WAS NOT LIKE THAT EARLY THIS MORNING WHEN THIS NURSE IN THERE. RN AWARE. WILL CONTINUE TO MONITOR.
[2021-07-18] MEDS: Rivaroxaban 10 MG Tablet PO (17:01)
[2021-07-18 17:10] LABS: Bedside Glucose 205 mg/dL (74-106)
--- NOTE | 2021-07-18 19:36 | NURSING ---
GAVE PT JESUSITA LOPEZ PT PRESCRIPTIONS AND COVID CARD THAT WAS LOCKED UP IN PT MED BOX TO TAKE HOME.
[2021-07-18] MEDS: Latanoprost 0.005% 1 Bottle 1 DRP EACH EYE (20:44)
[2021-07-18 21:35] LABS: Bedside Glucose 137 mg/dL (74-106)
[2021-07-19 02:00] VITALS: O2SAT 97
--- NOTE | 2021-07-19 03:52 | CPS ---
pt taken off bipap and put on nasal canula by RN, per pt request
[2021-07-19 05:22] VITALS: BP 146/94; PULSE 95
[2021-07-19 05:25] VITALS: BP 146/94; PULSE 95
[2021-07-19] MEDS: Pantoprazole Sodium 40 MG Tablet PO (05:25)
[2021-07-19] MEDS: Metoprolol Tartrate 25 MG Tablet PO (05:25)
[2021-07-19] MEDS: Mupirocin Ointment 22gm Tube 1 APPLIC TOPICAL (05:26)
[2021-07-19] MEDS: Menthol/Lanolin/Calamine/Znox 113 GM Tube 1 APPLIC TOPICAL (05:26)
[2021-07-19] MEDS: Nystatin Powder 15gm Bottle 1 APPLIC TOPICAL (05:27)
[2021-07-19 05:49] LABS: Absolute Lymphocyte Count 0.63 X10^3/uL (0.83-4.51); Absolute Neutrophil Count 5.8 X10^3/uL (2.0-7.7); Basophil# 0.06 X10^3/uL; Basophil% 0.7 % (0-1); Eosinophil# 0.32 X10^3/uL; Eosinophils% 3.9 % (0-5); Hematocrit 25.8 % (40-54); Hemoglobin 8.2 g/dL (13.0-16.5); Lymphocyte # 0.63 X10^3/ul (0.83-4.51); Lymphocyte % 7.6 % (19-41); Mean Corp Hgb Conc 31.8 g/dL (32-36); Mean Corpuscular Hgb 26.1 pg (27.0-32.0); Mean Corpuscular Volume 82.2 fL (80-94); Mean Platelet Vol. 10.2 fl (6.2-12.0); Monocyte# 1.21 X10^3/uL; Monocyte% 14.7 % (0-10); NRBC Flagged by Analyzer 0.2 % (0-5); Neutrophil # 5.83 X10^3/uL (2.7-7.7); Neutrophil % 70.7 % (47-70); Platelet Count 247 K/mm3 (150-450); RBC Distribution Width CV 18.5 % (11.6-14.6); RBC Distribution Width SD 54.5 fl (35.1-43.9); Red Blood Count 3.14 M/mm3 (4.6-6.2); White Blood Count 8.3 K/mm3 (4.4-11.0)
[2021-07-19 06:26] LABS: Bedside Glucose 109 mg/dL (74-106)
[2021-07-19 06:35] LABS: Albumin, Serum 1.1 g/dL (3.2-5.0); BUN 80 mg/dL (7-18); BUN/Creat Ratio 24.8 RATIO (10-20); Calcium,Total 9.6 mg/dL (8.5-10.1); Chloride 109 mmol/L (98-107); Creatinine, Serum 3.22 mg/dL (0.70-1.30); EST Glomerular Filtration Rate 20 mL/min (>60); Est Glom Filt Rate - Afr Amer 25 mL/min (>60); Estimated Creatinine Clearance 19.54 ml/min; Glucose 95 mg/dL (74-106); Phosphorus 3.7 mg/dL (2.5-4.9); Potassium 5.4 mmol/L (3.5-5.1); Sodium Level 136 mmol/L (136-145)
--- NOTE | 2021-07-19 07:53 | NURSING ---
Pt sent to Emergency room at this time d/t labs and GAYE, report called to ER, supervisor bleach plant aware, Pamella RIVERA aware, family called.
--- NOTE | 2021-07-20 02:29 | NURSING ---
Pt still remains off unit on PCU.
== END 2021-07-19 08:00 | disposition short-term general hospital (02) | DRG 292 ==
PROVIDERS: Internal Medicine Nephrology; Nurse Practitioner Adult Health; Admitting Provider Family Medicine Geriatric Medicine; PCP Family Medicine; Visit Provider Family Medicine Geriatric Medicine
DX: I11.0 Hypertensive heart disease with heart failure (principal); R78.81 Bacteremia; N17.9 Acute kidney failure, unspecified; Z68.43 Body mass index [BMI] 50.0-59.9, adult; I50.32 Chronic diastolic (congestive) heart failure; E66.01 Morbid (severe) obesity due to excess calories; B35.4 Tinea corporis; B95.61 Methicillin susceptible Staphylococcus aureus infection as the cause of diseases classified elsewhere; E87.6 Hypokalemia; B37.9 Candidiasis, unspecified; G47.33 Obstructive sleep apnea (adult) (pediatric); K14.8 Other diseases of tongue; E87.5 Hyperkalemia; Z79.01 Long term (current) use of anticoagulants; H40.9 Unspecified glaucoma; Z79.899 Other long term (current) drug therapy; Z86.718 Personal history of other venous thrombosis and embolism; Z23 Encounter for immunization
CPT/HCPCS: 0001A; 0002A; 36415; 71046; 74018; 76770; 80048; 80053; 80069; 81001; 82274; 82570; 82962; 83036; 84156; 85014; 85018; 85025; 86160; 87040; 87070; 87077; 87086; 87149; 87186; 87205; 87255; 87426; 87633; 87635; 87640; 87811; 91300; 92507; 92523; 92526; 92610; 94003; 94640; 94660; 94762; 97110; 97162; 97166; 97530; 97535; 97802; 97803; J7030; J7050; A4216; J1940; U0003; U0005

== ENCOUNTER 2021-07-19 07:51 | Inpatient (IN) | payer MEDICARE, OTHER, SELFPAY ==
[2021-07-19] VITALS (10 sets, daily range): BP systolic 143–163; BP diastolic 86–95; PULSE 83–99; RESP 19–24; TEMP 36.2–37.2; O2SAT 94–97; BMI 62.9; BMI 64.7
--- NOTE | 2021-07-19 08:07 | EKG12_ITS ---
Test Reason : ABNORMAL LABS Blood Pressure : / mmHG Vent. Rate : 092 BPM Atrial Rate : 092 BPM P-R Int : 126 ms QRS Dur : 120 ms QT Int : 352 ms P-R-T Axes : 010 061 028 degrees QTc Int : 435 ms Normal sinus rhythm Low Voltage QRS (Limb Leads) Right bundle branch block Abnormal ECG Confirmed by СЕРГЕЙ VALDEZ, DARLINE ([id number]), technical editor VALERIA MCINTYRE ([id number]) on 07/21/2021 11:34:46 AM Referred By: THAD Confirmed By:DARLINE RUSHING MD
--- NOTE | 2021-07-19 08:08 | EDS_ITS ---
HPI History of Present Illness Chief Complaint: Abn Labs Detail of Chief Complaint: Edema Informant: patient Onset/Context/Timing Onset: Month(s) Context: Gradual Onset Timing: Continuous Quality: Swelling/edema Location: Both legs Current Severity: Severe Maximum Severity: Severe Worsened by: Nothing Relieved by: Nothing Associated Symptoms Associated Symptoms: denies Narrative Narrative: Patient has been in on TCU for the last 6 weeks or so, swelling more and more, and his kidney function has been gradually decreasing, worse this morning with mild hyperkalemia and he was sent to the ER for further evaluation. It is unknown if nephrology has seen him where has been following him. He denies any chest pain, shortness of breath, orthopnea, GI symptoms, however nursing staff states that although he is able to get around, he does appear to be dyspneic when he does activity. He has been urinating. Apparently they have been giving him more IV fluids recently. He is on Xarelto and it was discontinued for an unknown period of time, he received a dose last night. He and nursing staff deny any known bleeding from anywhere although he has blood in his Franco catheter at the time of ED presentation. Staff told nursing that he has been pleasantly confused at times. Patient denies any known history of liver problems does not drink alcohol. [facility] Medical History 2019-nCoV vaccination declined Cellulitis Debility DVT (deep venous thrombosis) Fall HTN (hypertension) Leukocytosis Obesity Home Medications latanoprost 1 drp EACH EYE QHS 06/11/21 [History Last Taken 06/09/21] ipratropium-albuterol 3 ml INHALATION Q4HWA.RT PRN #0 ml 06/20/21 [Rx Last Taken Unknown] nystatin [Nyamyc] 1 applic TOPICAL BID 06/20/21 [History Last Taken Unknown] insulin lispro [Humalog KwikPen Insulin] 5 unit SUBCUT TIDAC #0 ml 07/16/21 [Rx Last Taken Unknown] menthol-zinc oxide [Calmoseptine] 1 applic TOPICAL BID #0 g 07/16/21 [Rx Last Taken Unknown] metoprolol tartrate 25 mg PO BID #0 tab 07/16/21 [Rx Last Taken Unknown] mupirocin 1 applic TOPICAL BID 07/19/21 [History Last Taken Unknown] pantoprazole [Protonix] 40 mg PO DAILY 07/19/21 [History Last Taken Unknown] tramadol 50 mg PO DAILY 07/19/21 [History Last Taken Unknown] Allergy/AdvReac Type Severity Reaction Status Date / Time No Known Allergies Allergy Verified 06/11/21 15:09 Surgical History History of left shoulder replacement Social History household members: none Smoking Status: Never smoker alcohol intake: never substance use type: does not use ROS ROS ED Constitutional Constitutional ED: Denies chills or fever(s) Eyes Eyes: Denies change in vision or diplopia ENT ENT ED: Denies rhinorrhea or sore throat Cardiovascular Cardiovascular: Reports edema; Denies chest pain, orthopnea or palpitations Respiratory/Chest Respiratory/Chest: Denies cough, dyspnea or orthopnea Gastrointestinal Gastrointestinal: Denies abdominal pain, diarrhea, nausea or vomiting Genitourinary Genitourinary ED: Denies dysuria or hematuria Musculoskeletal Musculoskeletal: Denies back pain or neck pain Integumentary Denies abscess or rash Neurologic Neurologic: Denies headache(s), paresthesias or weakness Psychiatric Psychiatric: Denies anxiety or suicidal thoughts EXAM Physical Exam Const Vital Signs: 07/19/21 07:52 07/19/21 07:56 07/19/21 07:58 Temperature 97.3 F L 97.3 F L Temperature Source Temporal Temporal Pulse Rate 90 90 Respiratory Rate 24 H 24 H Respiratory Effort Short of Breath Respiratory Pattern Normal Blood Pressure 163/95 H 163/95 H Blood Pressure Mean 117 117 Pulse Ox 94 94 Oxygen Delivery Method Room Air Room Air Positive well nourished and well developed General Appearance ED: well developed and NAD Nutritional Appearance: morbidly obese HEENT Reports moist mucous membranes normocephalic and atraumatic Eyes PERRL and EOMs intact bilaterally Neck full ROM and supple Resp normal respiratory effort, no retractions, no use of accessory muscles and clear to auscultation bilaterally Resp Narrative: Diminished at bases, but does not sound wet. Tachypneic denying dyspnea, no respiratory distress. Cardio regular rate, regular rhythm and no murmurs GI non-tender and non-distended Auscultation: normoactive bowel sounds Palpation: soft Back/Spine no CVA tenderness General Back: other FROM Extremity full ROM and no calf tenderness General Extremety ED: Yes edema; Negative for pulses abnormal or tenderness General Extremity: edema bilateral (Severe edema both lower extremities with changes consistent with chronic stasis, no signs of acute infection. Left lower extremity is in a wrap. Edema in left hand worse than the right. No signs of infection.); Negative for pulses abnormal Neuro oriented x3, CN's II-XII intact bilaterally and no sensory deficits noted Sensorium / Orientation: awake and alert Motor Exam: strength 5/5 throughout Skin no rashes or lesions noted and no wounds MDM MDM MDM Narrative Medical decision making narrative: Patient does have evidence of worsening renal function with mild hyperkalemia at 5.4 without any acute EKG changes; it is noted he has a right bundle branch block and there is no old EKG for comparison, but I assume it is old since he does not have peaked T waves or an atrioventricular block. Hemoglobin is 8.2 this is been stable for the last 3 interpretations. This could be due to several factors including chronic blood loss, renal failure/lack of production, and hemodilution. He has history of congestive heart failure but does not appear to be in an acute exacerbation. He is satting well on room air 94%. His albumin is very low, and when corrected his calcium is elevated although his reading today was normal, it has been reading high in the recent month of readings. He does have mild hematuria right now with no clots, the urine for the most part appears to be pink. He does not need emergent irrigation for that, I would simply hold the Xarelto for now. Urinalysis sent for culture, no urinary symptoms. He is clinically and hemodynamically stable. In reviewing the patient's chart he has been followed by Dr. Arita with nephrology. He was suggesting possibility of a renal biopsy if his labs worsened today which they did. I discussed with Dr. Erickson prior to talking with the hospitalist. Plan is for admission to PCU and further evaluation and treatment. Lab Data Attestation: I reviewed the patient's lab results. Labs: Laboratory Results - last 24 hr 07/19/21 08:38 Urine Color Red Urine Clarity Cloudy Urine pH 5.0 Ur Specific [place] 1.015 Urine Protein 100 H Urine Glucose (UA) Normal Urine Ketones 5 H Urine Occult Blood 250 H Urine Nitrite Positive H Urine Bilirubin Negative Urine Urobilinogen Normal Ur Leukocyte Esterase 500 H Radiography Chest X-Ray - ED: 1 View, Read by ED Physician, No Acute Disease and Chronic Changes Diagnostic Testing: Clinical Impression(s) from Imaging Studies Chest X-Ray 07/19/21 08:15 IMPRESSION: Mild increased markings in the right upper lobe adjacent to the right minor fissure. Stable mild increased markings at the lung bases suggestive of scarring. Prominence of the left pulmonary artery. Electronically Signed: Saleem Saavedra MD at 8:49 EDT , EKG Initial EKG: Attestation: I personally reviewed and interpreted this EKG as follows: Interpretation: Sinus Rhythm, No Acute Injury Pattern and RBBB Comments: No peaked T waves or AV block Prior: No Prior Discharge Plan Dx/Rx/DC Orders Clinical Impression: Acute renal failure, Debility, Hyperkalemia, diminished renal excretion, Hypercalcemia, Hematuria, Renal anasarca Disposition Disposition: Acute Care [facility]
--- NOTE | 2021-07-19 08:15 | RAD_ITS ---
STUDY: X-RAY CHEST REASON FOR EXAM: Male, 70 years old. Sob TECHNIQUE: Single AP portable view of the chest. COMPARISON: Comparison is made with prior study of 06/23/2021. FINDINGS: EKG electrodes are seen. A right-sided PICC line catheter seen with the tip at the junction of the superior vena cava right atrium. Thickening of the right minor fissure with increased markings in the right upper lobe adjacent to the fissure. Stable mild increased markings at the lung bases suggestive of scarring. Blunting of both costo phrenic angles. Normal size heart. Normal mediastinum and chante. There is prominence of the pulmonary hilar arteries without peripheral pulmonary vascular congestion, suggesting pulmonary hypertension. There is atherosclerotic tortuosity of the aortic arch and descending thoracic aorta. There are diffuse degenerative changes of the visualized thoracic spine. Patient is status post left shoulder replacement. There is no demonstrated abnormality of the visualized soft tissue structures of the upper abdomen. RAD/Chest 1 View (Portable) IMPRESSION: Mild increased markings in the right upper lobe adjacent to the right minor fissure. Stable mild increased markings at the lung bases suggestive of scarring. Prominence of the left pulmonary artery. Electronically Signed: Saleem Saavedra MD at 8:49 EDT ,
[2021-07-19 08:49] LABS: Mucous, Urine 0 SEEN /hpf (<or=2+)
[2021-07-19 08:53] LABS: Color, Urine Red (Yellow); Glucose, Dipstick Normal (Normal); Ketone-Dipstick 5 mg/dl (Negative); Leukocyte Esterase-Dipstick 500 /ul (Negative); Nitrite-Dipstick Positive (Negative); Occult Blood-Urine 250 /ul (Negative); Protein-Dipstick 100 mg/dl (Negative); Specific Gravity, Urine 1.015 (1.002-1.030); Urine Bilirubin Dipstick Negative (Negative); Urine Clarity Cloudy (Clear); Urine Urobilinogen Normal (Normal)
[2021-07-19 09:12] LABS: Bacteria 1+ /hpf (None Seen); Red Blood Cells-Urine 25-50 SEEN /hpf (0-5); Squamous Epithelial Cells - UA 0-5 SEEN /hpf (0-5); White Blood Cells 50-100 SEEN /hpf (0-5)
[2021-07-19] MEDS: traMADol 50 MG Tablet PO (10:45)
[2021-07-19] MEDS: Acetaminophen 325 MG Tablet 650 MG PO (10:45)
[2021-07-19] MEDS: 0.9% Normal Saline 1,000 ML 75 ML IV (10:51)
[2021-07-19 11:36] LABS: Bedside Glucose 105 mg/dL (74-106)
[2021-07-19] MEDS: Heparin Injection (Vial) 5,000 UNIT/ML VIAL 5000 UNIT SC ×2 (11:59→21:57)
--- NOTE | 2021-07-19 13:39 | HP.PCM.HOS_ITS ---
Documented by User: Vonnie Joe NP, MECHANICAL TEST ENGINEER-C 07/19/21 14:06 HPI - General General Date of Admission: 07/19/21 HPI Narrative MICHEAL LEÓN, is a 70 M who presents from TCU due to worsening renal function and increased swelling. Patient recently admitted for MSSA bacteremia and discharged to transitional care unit for rehab. Patient states he was told his kidneys are doing poorly and that is why he is admitted to the hospital. He appears dyspneic however denies shortness of breath. He states he is not aware of any increased swelling. Denies nausea, vomiting, abdominal pain. Reports stools have been Coca-Cola colored. Denies history of kidney issues. He has a past medical history of type 2 diabetes mellitus, chronic heart failure with preserved ejection fraction, morbid obesity, history of DVT, obesity hypoventilation syndrome, suspected COPD. [facility] Medical History 2019-nCoV vaccination declined Cellulitis Debility DVT (deep venous thrombosis) Fall HTN (hypertension) Leukocytosis Obesity Home Medications latanoprost 1 drp EACH EYE QHS 06/11/21 [History Last Taken 06/09/21] ipratropium-albuterol 3 ml INHALATION Q4HWA.RT PRN #0 ml 06/20/21 [Rx Last Taken Unknown] nystatin [Nyamyc] 1 applic TOPICAL BID 06/20/21 [History Last Taken Unknown] insulin lispro [Humalog KwikPen Insulin] 5 unit SUBCUT TIDAC #0 ml 07/16/21 [Rx Last Taken Unknown] menthol-zinc oxide [Calmoseptine] 1 applic TOPICAL BID #0 g 07/16/21 [Rx Last Taken Unknown] metoprolol tartrate 25 mg PO BID #0 tab 07/16/21 [Rx Last Taken Unknown] mupirocin 1 applic TOPICAL BID 07/19/21 [History Last Taken Unknown] pantoprazole [Protonix] 40 mg PO DAILY 07/19/21 [History Last Taken Unknown] tramadol 50 mg PO DAILY 07/19/21 [History Last Taken Unknown] Allergy/AdvReac Type Severity Reaction Status Date / Time No Known Allergies Allergy Verified 06/11/21 15:09 Surgical History (Reviewed 07/19/21 @ 14:05 by Vonnie Joe MECHANICAL TEST ENGINEER, MECHANICAL TEST ENGINEER-C) History of left shoulder replacement Social History household members: none Smoking Status: Never smoker alcohol intake: never substance use type: does not use Vital Signs Vital Signs Vital Signs: 07/19/21 07:52 07/19/21 07:56 07/19/21 07:58 Temperature 97.3 F L 97.3 F L Temperature Source Temporal Temporal Pulse Rate 90 90 Respiratory Rate 24 H 24 H Respiratory Effort Short of Breath Respiratory Depth Respiratory Pattern Normal Blood Pressure 163/95 H 163/95 H Blood Pressure Mean 117 117 Blood Pressure Source Blood Pressure Position Blood Pressure Location Pulse Ox 94 94 Oxygen Delivery Method Room Air Room Air 07/19/21 09:10 07/19/21 09:51 07/19/21 10:27 Temperature 97.3 F L 97.2 F L Temperature Source Temporal Temporal Pulse Rate 88 88 83 Respiratory Rate 19 H 19 H 24 H Respiratory Effort Respiratory Depth Respiratory Pattern Blood Pressure 155/86 H 155/86 H 145/86 H Blood Pressure Mean 109 109 105 Blood Pressure Source Monitor Blood Pressure Position Semi-Fowlers Blood Pressure Location Left Forearm Pulse Ox 95 95 95 Oxygen Delivery Method Room Air Room Air Room Air 07/19/21 10:55 07/19/21 10:59 Temperature Temperature Source Pulse Rate 96 Respiratory Rate Respiratory Effort Normal Non-Labored Short of Breath Respiratory Depth Normal Respiratory Pattern Normal Blood Pressure Blood Pressure Mean Blood Pressure Source Blood Pressure Position Blood Pressure Location Pulse Ox Oxygen Delivery Method Room Air Weight Weight: 401 lb 3.861 oz Body Mass Index (BMI) 64.7 Physical Exam Const alert, oriented x3 and no apparent distress Orientation / Consciousness: awake, oriented to person, oriented to place and oriented to time Nutritional Appearance: obese HEENT normocephalic and moist oral mucous membranes Eyes PERRL, EOMs intact bilaterally and conjunctivae normal Neck no lymphadenopathy Resp Auscultation: wheezes and diminished lung sounds Cardio regular rate, regular rhythm and no murmurs Peripheral Pulses: pulses 2+ throughout GI normal to inspection, nondistended, normoactive bowel sounds, non-tender and non-distended Extremity normal to inspection General Extremity: edema bilateral lower extremity Skin no rashes or lesions noted Lesions: no lesions Rashes: no rashes Trauma: no lacerations or abrasions Neuro CN's II-XII intact bilaterally, no focal motor deficits, no sensory deficits noted and deep tendon reflexes 2+ bilaterally Psych mental status grossly normal and affect normal Results Lab / Micro Data Labs: Laboratory Results - last 24 hr 07/19/21 08:38: Urine Color Red, Urine Clarity Cloudy, Urine pH 5.0, Ur Specific [place] 1.015, Urine Protein 100 H, Urine Glucose (UA) Normal, Urine Ketones 5 H , Urine Occult Blood 250 H, Urine Nitrite Positive H, Urine Bilirubin Negative, Urine Urobilinogen Normal, Ur Leukocyte Esterase 500 H, Urine RBC 25-50 SEEN, Urine WBC 50-100 SEEN, Ur Squamous Epith Cells 0-5 SEEN, Urine Bacteria 1+, Urine Mucus 0 SEEN 07/19/21 10:49: POC Glucose 105 Radiology Impression Chest X-Ray 07/19/21 08:15 IMPRESSION: Mild increased markings in the right upper lobe adjacent to the right minor fissure. Stable mild increased markings at the lung bases suggestive of scarring. Prominence of the left pulmonary artery. Electronically Signed: Saleem Saavedra MD at 8:49 EDT , Assessment & Plan Assessment/Plan (1) Acute renal failure: PLAN: 1. Acute kidney injury-nephrology following. Recent renal ultrasound unremarkable. Avoid nephrotoxic regimen. Xarelto on hold with plans for renal biopsy. Trend BMP. 2. Worsening lower extremity edema-Giuseppe wraps bilateral lower extremities. Recent echo as noted below with EF 65%, stage I diastolic dysfunction. 3. Worsening normocytic anemia-Xarelto on hold. Continue PPI. Stool positive for occult blood 07/14/21. Trend CBC. If Hgb further trends down, consider GI consult. 4. Type 2 diabetes [id number]-[id number] with sliding scale insulin. Continue home insulin regimen. 5. Recent MSSA bacteremia-completed treatment. Patient to follow-up with ID as outpatient. 6. Chronic heart failure with preserved ejection fraction-recent echo with EF 65%, stage I diastolic dysfunction. 7. Probable COPD-as needed albuterol aerosol. Outpatient follow-up with pulmonary medicine for formal PFTs. 8. Obesity hypoventilation syndrome/probable NILDA-we will need further outpatient follow-up/evaluation. 9. Morbid obesity- encouraged diet and lifestyle modifications. 10. History of DVT-Xarelto held for biopsy plans. 11. Debility/failure to thrive- PT/OT. Return to SNF when medically stable. DVT prophylaxis- Xarelto This patient was seen by CHHAYA Roberts under the supervision of Dr. Reza. Time spent examining patient, reviewing data and subsequent management of care: 18 Minutes Documented by User: Dr. Frank Reza, 07/19/21 17:38 HPI - General General Date of Admission: 07/19/21 [facility] Medical History 2019-nCoV vaccination declined Cellulitis Debility DVT (deep venous thrombosis) Fall HTN (hypertension) Leukocytosis Obesity Home Medications latanoprost 1 drp EACH EYE QHS 06/11/21 [History Last Taken 06/09/21] ipratropium-albuterol 3 ml INHALATION Q4HWA.RT PRN #0 ml 06/20/21 [Rx Last Taken Unknown] nystatin [Nyamyc] 1 applic TOPICAL BID 06/20/21 [History Last Taken Unknown] insulin lispro [Humalog KwikPen Insulin] 5 unit SUBCUT TIDAC #0 ml 07/16/21 [Rx Last Taken Unknown] menthol-zinc oxide [Calmoseptine] 1 applic TOPICAL BID #0 g 07/16/21 [Rx Last Taken Unknown] metoprolol tartrate 25 mg PO BID #0 tab 07/16/21 [Rx Last Taken Unknown] mupirocin 1 applic TOPICAL BID 07/19/21 [History Last Taken Unknown] pantoprazole [Protonix] 40 mg PO DAILY 07/19/21 [History Last Taken Unknown] tramadol 50 mg PO DAILY 07/19/21 [History Last Taken Unknown] Allergy/AdvReac Type Severity Reaction Status Date / Time No Known Allergies Allergy Verified 06/11/21 15:09 Surgical History (Reviewed 07/19/21 @ 14:05 by Vonnie Joe MECHANICAL TEST ENGINEER, MECHANICAL TEST ENGINEER-C) History of left shoulder replacement Social History household members: none Smoking Status: Never smoker alcohol intake: never substance use type: does not use Charges/Coding Addendum Addendum: Patient was seen and examined independently of Vonnie Joe, he was transported to the emergency room today for evaluation from TCU due to worsening lab results showing increasing renal failure. Patient was admitted to TCU on June for debility and methicillin sensitive staph aureus bacteremia. Patient has been treated with Ancef, his renal functions have been followed by nephrology and for the last 7 to 10 days have declined. There is no definite reason that we can ascertain why the patient's renal functions are deteriorating. On examination he appeared older than his stated age, he is morbidly obese. Vital signs as documented. Skin warm and dry and without overt rashes. Neck without JVD, neck was supple, trachea midline, thyroid was normal. Lungs clear bilaterally, normal air movement was noted. Heart exam notable for regular rhythm, normal sounds and absence of murmurs, rubs or gallops. Abdomen-abdomen is soft. Bowel sounds are present, patient is morbidly obese, no rebound abdominal tenderness was noted, there is an umbilical hernia noted. Extremities-bilateral lower leg edema is noted to be present which is severe, no cyanosis was noted, no clubbing was noted. Neuro: Cranial nerves II through XII are grossly intact, no focal motor deficits were noted, sensation to light touch and pinprick intact, motor exam 5/5 throughout. Psych: Patient is alert and oriented x3, he does not appear anxious or depressed, he does not appear ag itated. Lab which was done today included a CBC which was remarkable for hemoglobin of 8.2, chemistry panel showed a creatinine of 3.2, BUN was 80, potassium was 5.4, patient's albumin was 1.1, patient's urinalysis showed red cells, white cells, and +1 bacteria but the patient has an indwelling Franco catheter, I discussed this with nephrology and they did not feel that he had a urinary tract infe ction. Patient was admitted to PCU, however, after the admission, we found out that radiology would not perform a needle biopsy of the kidneys because the patient was too large. I have since called [facility] and hopefully we can get the patient transferred there for a renal biopsy, he will have to have a CAT scan of his abdomen and pelvis tonight for [facility] to agree to accept him- they will have to have the interventional radiologist go over the films prior to excepting the patient. Impression #1 acute kidney injury-etiology unclear, again patient was admitted to PCU, he will undergo a CAT scan of his abdomen and pelvis, hopefully there will be a bed available at [facility] and they will take the patient for expected kidney biopsy. I went over this plan with nephrology. #2 hyperkalemia-this appears not to need treatment at this time, labs will be rechecked tomorrow #3 bacteriuria-probably secondary to Franco catheter, this does not need to be treated as a urinary tract infection #4 morbid obesity-complicates care, prognosis, and recovery #5 type 2 diabetes-patient's blood sugars will be monitored, sliding scale insulin will be used #6 essential hypertension-patient will remain on his present medications #7 acute debility-secondary to multiple medical problems and morbid obesity-PT and OT will see the patient #8 hypoproteinemia-exact etiology is unknown, this may be nutritional in nature, patient will be seen by nutritional services and nephrology I have reviewed Vonnie Joe's history and physical including her medical assessment and plan of care and with the above additions endorse it. Total clinical time spent by myself addressing the patient's medical issues, reviewing the patient's medical data, and collaborating with the patient's care team: 55 minutes Visit Charges Inpatient E&M: 39225 Init Hosp L3
--- NOTE | 2021-07-19 13:40 | PN.RENAL_ITS ---
Subjective Subjective Following for GAYE Patient moved to PCU today. He is alert to name but confused with recent events. Denies any N/V/D. Denies SOB or CP. Objective Data Objective Data Vital Signs: Vital Signs Temp Pulse Resp BP Pulse Ox 97.2 F L 96 24 H 145/86 H 95 07/19/21 10:27 07/19/21 10:59 07/19/21 10:27 07/19/21 10:27 07/19/21 10:27 Oxygen Delivery Method Room Air Weight: 182 kg Body Mass Index (BMI) 64.7 Lab / Micro Data Labs: Laboratory Results - last 24 hr 07/19/21 08:38: Urine Color Red, Urine Clarity Cloudy, Urine pH 5.0, Ur Specific [place] 1.015, Urine Protein 100 H, Urine Glucose (UA) Normal, Urine Ketones 5 H , Urine Occult Blood 250 H, Urine Nitrite Positive H, Urine Bilirubin Negative, Urine Urobilinogen Normal, Ur Leukocyte Esterase 500 H, Urine RBC 25-50 SEEN, Urine WBC 50-100 SEEN, Ur Squamous Epith Cells 0-5 SEEN, Urine Bacteria 1+, Urine Mucus 0 SEEN 07/19/21 10:49: POC Glucose 105 Radiography Diagnostic Testing: Radiology Impression Chest X-Ray 07/19/21 08:15 IMPRESSION: Mild increased markings in the right upper lobe adjacent to the right minor fissure. Stable mild increased markings at the lung bases suggestive of scarring. Prominence of the left pulmonary artery. Electronically Signed: Saleem Saavedra MD at 8:49 EDT , Physical Exam Narrative Const: Alert to self, confused to recent events HEENT: Head normocephalic, atraumatic, pupils equal round reactive to light, oral mucosa is moist Respiratory: Lung sounds clear anteriorly Cardio: S1, S2, rhythm rate regular GI: Abdomen soft, nontender. Positive bowel sounds x4 quadrants. Pitting edema noted across abdominal wall Extremities: 4+ edema bilateral legs, edema to thighs. Edema b/l arms L>R, anasarca Assessment & Plan Assessment/Plan (1) Acute renal failure: (2) Hyperkalemia: (3) Anemia: (4) Anasarca: PLAN: Patient transferred from TCU to PCU today: - Nonoliguric GAYE with normal baseline renal function. -Cause of GAYE unknown: GAYE possibly from low intravascular volume with serum albumin of 1.1 g/dL. GAYE could possibly be infection related glomerulonephritis since there is persistent microscopic hematuria and proteinuria. However, C3 and C4 are normal. Patient has not had any NSAIDs, SHELLI-I, ARB, has not been on Vanco SCr 06/28/2021 0.96 mg/dL, 07/05/2021 SCr 1.42, gap in lab work until 07/12/2021 SCr 2.26 mg/dL, 07/13/2021 SCr 2.34 mg/dL 07/15/2021 SCr 2.78mg/dL, and today SCr 3.22 mg/dL. -Lasix was stopped 07/12 and patient started on IV fluids 07/12. He does have anasarca. Patient and staff reports good appetite, no nausea, vomiting, or diarrhea, so IVF stopped 07/14. -Albumin 1.1. Urine protein to creatinine ratio is 2617 mg/g. -Renal US showed no hydro. -No acute indication for kidney replacement therapy. There is no acidosis and has mild hyperkalemia. The patient is volume overloaded, but difficult to ascertain whether there is adequate intravascular/effective blood volume. -We will hold off on further diuresis for now - started on IVF 07/19 at 75ml/hr - since renal function is worsening and unknown reason for GAYE the patient was moved back to the hospital for more expedited work-up including possible renal biopsy. - Medications are reviewed and are all appropriately dosed for his decreased renal function. - discussed with patient today would like to have kidney biopsy as he has GAYE with unknown cause. He is somewhat confused today, possibly from recent move from TCU to PCU. Will continue to follow. Patient had xarelto on 07/18 at 1701 therefore kidney bx would not be able to be done until Monday. Also to check if CT table can accommodate patient for CT guided kidney bx -We will give 1 dose Kayexalate today and and renal diet restrictions - hgb trending down, currently 8.2. Patient had +stool OB last week - will check PT/INR/PTT in am
[2021-07-19] MEDS: Sodium Polystyrene Sulfonate 15 GM/60 ML UDC 30 GM PO (16:15)
[2021-07-19 16:26] LABS: Bedside Glucose 119 mg/dL (74-106)
--- NOTE | 2021-07-19 17:45 | CT_ITS ---
STUDY: CT ABDOMEN AND PELVIS WITHOUT CONTRAST ENHANCEMENT OF 1751 HOURS ON 07/19/2021 REASON FOR EXAM: 70-year-old male with renal failure. RADIATION DOSAGE (If Supplied By Facility): CTDIvol = ( 24.18 ) mGy, DLP = ( 2895.94 ) mGycm TECHNIQUE: Transaxial images were obtained from the dome of the diaphragm to the symphysis pubis without oral contrast, and without intravenous contrast. Sagittal and coronal images were reconstructed. Individualized dose optimization techniques were used for this CT. COMPARISON: None. FINDINGS: There are mild bilateral pleural effusions, greater on the right. There is a minimal right lower lobe infiltrative process. There is mild left lower lobe atelectasis. The visualized portions of the heart are within normal limits. There is a small lobulated dense liver. Normal gallbladder and extrahepatic biliary system; no cholelithiasis or cholecystitis.. Normal spleen. Normal atrophic pancreas without pancreatitis or pancreatic mass lesions. Normal bilateral adrenal glands. Small normal kidneys without obstructive uropathy. No renal cystic or solid mass lesions. No pyelonephritis. Normal visualized stomach. Normal small intestine. No diverticulitis, colitis, or intestinal obstruction.. Normal caliber air-filled appendix without evidence of appendicitis--best seen on coronal images 88 through 90. Normal abdominal aorta. Normal inferior vena cava. Normal retroperitoneum. Normal urinary bladder. Very thin rectus musculature. 7 cm fat-containing umbilical hernia. Small bilateral fat-containing inguinal hernias. Mild anasarca. No lumbar vertebral body fractures, subluxations, or intervertebral disc space narrowing. Obesity. CT/Abdomen/Pelvis without Cont IMPRESSION: 1. Mild bilateral pleural effusions, greater on the right with a minimal right lower lobe infiltrate and a mild left lower lobe atelectasis. 2. Small lobulated dense liver and normal spleen. 3. No cholecystitis or pancreatitis. 4. Small normal kidneys without obstructive uropathy. 5. No appendicitis, diverticulitis, colitis, or intestinal obstruction. 6. Presence of a 7 cm fat-containing umbilical hernia. 7. Small bilateral fat-containing inguinal hernias. 8. Mild diffuse anasarca. 9. Obesity. Electronically Signed: Royer Garcia MD at 2:58 EDT ,
[2021-07-19] MEDS: Latanoprost 0.005% 1 Bottle 1 DRP EACH EYE (21:57)
[2021-07-19] MEDS: Metoprolol Tartrate 25 MG Tablet PO (21:57)
[2021-07-19 22:55] LABS: Bedside Glucose 120 mg/dL (74-106)
[2021-07-20 03:50] VITALS: BP 138/77; PULSE 102; RESP 20; TEMP 37.3; O2SAT 95
[2021-07-20] MEDS: Acetaminophen 325 MG Tablet 650 MG PO (03:52)
[2021-07-20 06:18] LABS: Absolute Lymphocyte Count 0.48 X10^3/uL (0.83-4.51); Absolute Neutrophil Count 6.7 X10^3/uL (2.0-7.7); Basophil# 0.02 X10^3/uL; Basophil% 0.2 % (0-1); Eosinophils% 3.4 % (0-5); Hematocrit 24.2 % (40-54); Hemoglobin 7.6 g/dL (13.0-16.5); Lymphocyte # 0.48 X10^3/ul (0.83-4.51); Lymphocyte % 5.4 % (19-41); Mean Corp Hgb Conc 31.4 g/dL (32-36); Mean Corpuscular Hgb 26.1 pg (27.0-32.0); Mean Corpuscular Volume 83.2 fL (80-94); Mean Platelet Vol. 8.9 fl (6.2-12.0); Monocyte# 1.16 X10^3/uL; NRBC Flagged by Analyzer 0 % (0-5); Neutrophil # 6.71 X10^3/uL (2.7-7.7); Neutrophil % 75.3 % (47-70); POSITIVE DIFFERENTIAL YES; Platelet Count 368 K/mm3 (150-450); RBC Distribution Width CV 18.3 % (11.6-14.6); RBC Distribution Width SD 55.6 fl (35.1-43.9); Red Blood Count 2.91 M/mm3 (4.6-6.2); White Blood Count 8.9 K/mm3 (4.4-11.0)
[2021-07-20 06:25] LABS: Differential Indicated SCAN CRITERIA MET
[2021-07-20 06:29] LABS: Prothrombin Time (Protime)PT. 21.7 SECONDS (11.7-14.9)
[2021-07-20 06:30] LABS: Partial Thromboplast Time 49.1 Seconds (24.1-36.2)
[2021-07-20 06:34] LABS: Differential Comment SCANNED
[2021-07-20 06:36] LABS: Bedside Glucose 89 mg/dL (74-106)
[2021-07-20 06:45] LABS: Anion Gap 5 (5-15); BUN 81 mg/dL (7-18); BUN/Creat Ratio 24.2 RATIO (10-20); Calcium,Total 9.3 mg/dL (8.5-10.1); Chloride 106 mmol/L (98-107); Creatinine, Serum 3.35 mg/dL (0.70-1.30); EST Glomerular Filtration Rate 20 mL/min (>60); Est Glom Filt Rate - Afr Amer 24 mL/min (>60); Estimated Creatinine Clearance 18.78 ml/min; Glucose 101 mg/dL (74-106); Potassium 5.2 mmol/L (3.5-5.1); Sodium Level 136 mmol/L (136-145)
[2021-07-20 07:35] VITALS: BP 130/84; PULSE 101
[2021-07-20] MEDS: Metoprolol Tartrate 25 MG Tablet PO ×2 (07:35→22:25)
[2021-07-20] MEDS: Pantoprazole Sodium 40 MG Tablet PO (07:36)
[2021-07-20] MEDS: Heparin Injection (Vial) 5,000 UNIT/ML VIAL 5000 UNIT SC ×2 (07:36→22:21)
[2021-07-20] MEDS: traMADol 50 MG Tablet PO (07:39)
--- NOTE | 2021-07-20 09:31 | PN.RENAL_ITS ---
Subjective Subjective Following for GAYE Resting quietly, A&Ox3. No overnight events. Denies any complaints. Objective Data Objective Data Vital Signs: Vital Signs Temp Pulse Resp BP Pulse Ox 99.1 F 101 H 20 H 130/84 H 95 07/20/21 03:50 07/20/21 07:35 07/20/21 03:50 07/20/21 07:35 07/20/21 03:50 Oxygen Flow Rate (L/min) 2 Oxygen Delivery Method Nasal Cannula Weight: 182 kg Body Mass Index (BMI) 64.7 Intake & Output: Intake and Output for Last 24 Hours 07/18/21 07/19/21 07/20/21 23:59 23:59 23:59 Intake Total 1522.5 / 1522.5 240 / 240 Output Total 900 / 900 100 / 100 Balance 622.5 / 622.5 140 / 140 Lab / Micro Data Result Diagrams: 07/20/21 05:55 07/20/21 05:55 Labs: Laboratory Results - last 24 hr 07/19/21 10:49: POC Glucose 105 07/19/21 16:09: POC Glucose 119 H 07/19/21 21:52: POC Glucose 120 H 07/20/21 05:55: Sodium 136, Potassium 5.2 H, Chloride 106, Carbon Dioxide 25.0, Anion Gap 5, BUN 81 H, Creatinine 3.35 H, Estim Creat Clear Calc 18.78, Est GFR (MDRD) Af Amer 24 L, Est GFR (MDRD) Non-Af 20 L, BUN/Creatinine Ratio 24.2 H, Glucose 101, Calcium 9.3 07/20/21 05:55: PT 21.7 H, INR 2.0, APTT 49.1 H 07/20/21 05:55: WBC 8.9, RBC 2.91 L, Hgb 7.6 L, Hct 24.2 L, MCV 83.2, MCH 26.1 L , MCHC 31.4 L, RDW Std Deviation 55.6 H, RDW Coeff of Jory 18.3 H, Plt Count 368, MPV 8.9, Immature Gran % (Auto) 2.700 H, Neut % (Auto) 75.3 H, Lymph % (Auto) 5.4 L, Richardson % (Auto) 13.0 H, Eos % (Auto) 3.4, Baso % (Auto) 0.2, Absolute Neuts (auto) 6.7, Absolute Lymphs (auto) 0.48 L, Nucleated RBC % 0, Differential Comment SCANNED 07/20/21 06:26: POC Glucose 89 Radiography Diagnostic Testing: Radiology Impression Abdomen/Pelvis CT 07/19/21 17:45 IMPRESSION: 1. Mild bilateral pleural effusions, greater on the right with a minimal right lower lobe infiltrate and a mild left lower lobe atelectasis. 2. Small lobulated dense liver and normal spleen. 3. No cholecystitis or pancreatitis. 4. Small normal kidneys without obstructive uropathy. 5. No appendicitis, diverticulitis, colitis, or intestinal obstruction. 6. Presence of a 7 cm fat-containing umbilical hernia. 7. Small bilateral fat-containing inguinal hernias. 8. Mild diffuse anasarca. 9. Obesity. Electronically Signed: Royer Garcia MD at 2:58 EDT , Physical Exam Narrative Const: Alert to self, confused to recent events HEENT: Head normocephalic, atraumatic, pupils equal round reactive to light, oral mucosa is moist Respiratory: Lung sounds clear anteriorly; moises audile expiratory wheezing; diminished breath sounds posteriorly, no rales or rhonchi Cardio: S1, S2, rhythm rate regular GI: Abdomen soft, nontender. Positive bowel sounds x4 quadrants. Pitting edema noted across abdominal wall Extremities: 4+ edema bilateral legs, edema to thighs. Edema b/l arms L>R, anasarca Assessment & Plan Assessment/Plan (1) Acute renal failure: (2) Hyperkalemia: (3) Anemia: (4) Anasarca: PLAN: Patient transferred from TCU to PCU 07/19. -Nonoliguric GAYE with normal baseline renal function. -Cause of GAYE unknown: GAYE possibly from low intravascular volume with serum albumin of 1.1 g/dL. GAYE could possibly be infection related glomerulonephritis since there is persistent microscopic hematuria and proteinuria. However, C3 and C4 are normal. Patient has not had any NSAIDs, SHELLI-I, ARB, has not been on Vanco SCr 06/28/2021 0.96 mg/dL, 07/05/2021 SCr 1.42, gap in lab work until 07/12/2021 SCr 2.26 mg/dL, 07/13/2021 SCr 2.34 mg/dL 07/15/2021 SCr 2.78mg/dL, and today SCr 3.35 mg/dL, eGFR 20ml/min. -Lasix was stopped 07/12 and patient started on IV fluids 07/12. He does have anasarca. Patient and staff reported good appetite, no nausea, vomiting, or diarrhea, so IVF stopped 07/14. He was on IVF briefly after transferring back to PCU 07/19 but now off IVF. - will keep off IVF for today -Albumin 1.1. Urine protein to creatinine ratio is 2617 mg/g. -Renal US showed no hydro. -No acute indication for kidney replacement therapy. There is no acidosis and has mild hyperkalemia. The patient is volume overloaded but difficult to ascertain whether there is adequate intravascular/effective blood volume. -We will hold off on further diuresis for now - since renal function is worsening and unknown reason for GAYE the patient was moved back to the hospital for more expedited work-up including possible renal biopsy. - Medications are reviewed and are all appropriately dosed for his decreased renal function. - discussed with patient again today would like to have kidney biopsy as he has GAYE with unknown cause. Patient had Xarelto on 07/18 at 1701. 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 - K+ 5.2 today, will give 1 dose Kayexalate again today and continue renal diet restrictions - hgb continues trending down, currently 7.6. Patient had +stool OB last week - Today INR 2.0, PT 21.7, PTT 49.1 - noncontrast CT A/P 07/19: small normal kidneys without obstructive uropathy, mild diffuse anasarca - Pending transfer to tertiary care center as patient is unable to have Kidney bx here, table is unable to accommodate him
[2021-07-20 09:42] VITALS: BP 130/84; PULSE 93; RESP 18; TEMP 36.6; O2SAT 93
--- NOTE | 2021-07-20 11:23 | PCM.PN.HOSP ---
Documented by User: Vonnie Joe NP, WATER PUMPER-C 07/20/21 11:41 Subjective Subjective Patient seen and examined. Denies new symptoms or complaints. Denies shortness of breath. Awaiting bed at [facility]. Objective Data Objective Data Vital Signs: Vital Signs Temp Pulse Resp BP Pulse Ox 97.9 F 93 18 130/84 H 93 07/20/21 09:42 07/20/21 09:42 07/20/21 09:42 07/20/21 09:42 07/20/21 09:42 Oxygen Flow Rate (L/min) 2 Oxygen Delivery Method Room Air Weight: 401 lb 3.861 oz Body Mass Index (BMI) 64.7 Intake & Output: Intake and Output for Last 24 Hours 07/18/21 07/19/21 07/20/21 23:59 23:59 23:59 Intake Total 1522.5 / 1522.5 240 / 240 Output Total 900 / 900 100 / 100 Balance 622.5 / 622.5 140 / 140 Lab / Micro Data Result Diagrams: 07/20/21 05:55 07/20/21 05:55 Labs: Laboratory Results - last 24 hr 07/19/21 10:49: POC Glucose 105 07/19/21 16:09: POC Glucose 119 H 07/19/21 21:52: POC Glucose 120 H 07/20/21 05:55: Sodium 136, Potassium 5.2 H, Chloride 106, Carbon Dioxide 25.0, Anion Gap 5, BUN 81 H, Creatinine 3.35 H, Estim Creat Clear Calc 18.78, Est GFR (MDRD) Af Amer 24 L, Est GFR (MDRD) Non-Af 20 L, BUN/Creatinine Ratio 24.2 H, Glucose 101, Calcium 9.3 07/20/21 05:55: PT 21.7 H, INR 2.0, APTT 49.1 H 07/20/21 05:55: WBC 8.9, RBC 2.91 L, Hgb 7.6 L, Hct 24.2 L, MCV 83.2, MCH 26.1 L, MCHC 31.4 L, RDW Std Deviation 55.6 H, RDW Coeff of Jory 18.3 H, Plt Count 368, MPV 8.9, Immature Gran % (Auto) 2.700 H, Neut % (Auto) 75.3 H, Lymph % (Auto) 5.4 L, Dunn % (Auto) 13.0 H, Eos % (Auto) 3.4, Baso % (Auto) 0.2, Absolute Neuts (auto) 6.7, Absolute Lymphs (auto) 0.48 L, Nucleated RBC % 0, Differential Comment SCANNED 07/20/21 06:26: POC Glucose 89 Micro: Microbiology 07/19/21 08:48 Urine, Clean Catch Urine Culture - Preliminary Culture exhibits no growth. Radiography Diagnostic Testing: Radiology Impression Abdomen/Pelvis CT 07/19/21 17:45 IMPRESSION: 1. Mild bilateral pleural effusions, greater on the right with a minimal right lower lobe infiltrate and a mild left lower lobe atelectasis. 2. Small lobulated dense liver and normal spleen. 3. No cholecystitis or pancreatitis. 4. Small normal kidneys without obstructive uropathy. 5. No appendicitis, diverticulitis, colitis, or intestinal obstruction. 6. Presence of a 7 cm fat-containing umbilical hernia. 7. Small bilateral fat-containing inguinal hernias. 8. Mild diffuse anasarca. 9. Obesity. Electronically Signed: Royer Garcia MD at 2:58 EDT , Physical Exam Const alert, oriented x3 and no apparent distress Orientation / Consciousness: awake, oriented to person, oriented to place and oriented to time Nutritional Appearance: obese HEENT normocephalic and moist oral mucous membranes Eyes PERRL, EOMs intact bilaterally and conjunctivae normal Neck no lymphadenopathy Resp clear to auscultation bilaterally Auscultation: diminished lung sounds Cardio regular rate, regular rhythm and no murmurs Peripheral Pulses: pulses 2+ throughout GI normal to inspection, nondistended, normoactive bowel sounds, non-tender and non-distended Extremity normal to inspection General Extremity: edema bilateral lower extremity Skin no rashes or lesions noted Lesions: no lesions Rashes: no rashes Trauma: no lacerations or abrasions Neuro CN's II-XII intact bilaterally, no focal motor deficits, no sensory deficits noted and deep tendon reflexes 2+ bilaterally Psych mental status grossly normal and affect normal Assessment & Plan Assessment/Plan (1) Acute renal failure: PLAN: 1. Acute kidney injury-nephrology following. Recent renal ultrasound unremarkable. Avoid nephrotoxic regimen. Xarelto on hold with plans for renal biopsy. Trend BMP. Awaiting bed at [facility] for biopsy. Unable to perform at [facility] due to patients abdominal girth. 2. Worsening lower extremity edema-Giuseppe wraps bilateral lower extremities. Recent echo as noted below with EF 65%, stage I diastolic dysfunction. 3. Worsening normocytic anemia-Xarelto on hold. Continue PPI. Stool positive for occult blood 07/14/21. Trend CBC. If Hgb further trends down, consider GI consult. 4. Type 2 diabetes [id number]-[id number] with sliding scale insulin. Continue home insulin regimen. 5. Recent MSSA bacteremia-completed treatment. Patient to follow-up with ID as outpatient. 6. Chronic heart failure with preserved ejection fraction-recent echo with EF 65%, stage I diastolic dysfunction. 7. Probable COPD-as needed albuterol aerosol. Outpatient follow-up with pulmonary medicine for formal PFTs. 8. Obesity hypoventilation syndrome/probable NILDA-we will need further outpatient follow-up/evaluation. 9. Morbid obesity- encouraged diet and lifestyle modifications. 10. History of DVT-Xarelto held for biopsy plans. 11. Debility/failure to thrive- PT/OT. Will need SNF when medically stable. DVT prophylaxis- Xarelto This patient was seen by CHHAYA Roberts under the supervision of Dr. Basilio. Discharge plan: awaiting bed at [facility] for renal biopsy. Time spent examining patient, reviewing data and subsequent management of care: 14 Minutes Documented by User: Dr. Thang Basilio DO 07/20/21 13:12 Subjective Subjective Denies any new complaints. Objective Data Lab / Micro Data Result Diagrams: 07/20/21 05:55 07/20/21 05:55 Physical Exam Const alert and no apparent distress Resp normal respiratory effort, no retractions, no use of accessory muscles and clear to auscultation bilaterally Cardio regular rate, regular rhythm, S1 normal heart sound and S2 normal heart sound GI normal to inspection, nondistended, normoactive bowel sounds, soft to palpation, non-tender and non-distended Extremity normal to inspection Neuro Sensorium / Orientation: awake and alert Assessment & Plan Assessment/Plan (1) Acute renal failure: PLAN: Patient seen and examined independently. Data and vitals reviewed. I agree with the above note by the nurse practitioner. 1. Acute kidney injury Ongoing. Nonoliguric unclear etiology creatinine now up to 3.35. Baseline is around 0.96. DW Dr. Valencia who is currently at [facility] today and states that the radiologist feels that the could do the kidney biopsy. Waiting on images to be pushed over there. Unfortunately in the interventional radiology here does not feel that can be safely done. No need for renal replacement therapy at this time but nephrology is continue to follow along. Transfer to [facility] when bed available. 2. Acute blood loss anemia Hemoglobin has dropped from 10.1 on June 27-7.6 today. Heme positive stools Rivaroxaban on hold Continue PPI May need to consider GI consultation. Greater than 20 minutes. Charges/Coding Visit Charges Inpatient E&M: 95890 Subs Hosp L2
[2021-07-20] MEDS: Sodium Polystyrene Sulfonate 15 GM/60 ML UDC PO (11:31)
[2021-07-20 14:36] LABS: Bedside Glucose 119 mg/dL (74-106)
[2021-07-20 15:25] LABS: Bedside Glucose 116 mg/dL (74-106)
--- NOTE | 2021-07-20 18:00 | PCM.DC.SUM ---
Documented by User: Vonnie Joe NP, GUEST SERVICE MANAGER-C 07/21/21 08:28 Providers Date of Admission: 07/19/21 Date of Discharge: 07/20/21 Primary Care Physician: Dr. Maury Harley, Consultations 07/19/21 10:14 Consult: Nephrology Routine Consulting Provider: Ciarra Valencia Reason for Consult: renal failure EMERGENT Consult: No MD Notified: Yes Date Notified: 07/19/21 Time Notified: 09:44 Method of Notification: Verbal Reason For Visit: ARF, HYPERKALEMIA, ANASERCA Diagnosis Discharge Diagnosis (1) Acute renal failure: Status: Acute Code(s): N17.9 - Acute kidney failure, unspecified Medications at Discharge Home Medications latanoprost 1 drp EACH EYE QHS 06/11/21 ipratropium-albuterol 3 ml INHALATION Q4HWA.RT PRN #0 ml 06/20/21 nystatin [Nyamyc] 1 applic TOPICAL BID 06/20/21 insulin lispro [Humalog KwikPen Insulin] 5 unit SUBCUT TIDAC #0 ml 07/16/21 menthol-zinc oxide [Calmoseptine] 1 applic TOPICAL BID #0 g 07/16/21 metoprolol tartrate 25 mg PO BID #0 tab 07/16/21 mupirocin 1 applic TOPICAL BID 07/19/21 pantoprazole [Protonix] 40 mg PO DAILY 07/19/21 tramadol 50 mg PO DAILY 07/19/21 Hospital Course Operations None Procedures None Summary of Care Provided Hospital Course: Patient is a 70-year-old male admitted 07/19/21 due to worsening renal function. 1. Acute kidney injury-nephrology consulted during admission. Recent renal ultrasound unremarkable. Avoid nephrotoxic regimen. Xarelto on hold with plans for renal biopsy. Transfer to [facility] for renal biopsy. Unable to perform at [facility] due to patients abdominal girth. 2. Worsening lower extremity edema-Giuseppe wraps bilateral lower extremities. Recent echo as noted below with EF 65%, stage I diastolic dysfunction. 3. Worsening normocytic anemia-Xarelto on hold. Continue PPI. Stool positive for occult blood 07/14/21. Trend CBC. If Hgb further trends down, consider GI consult. 4. Type 2 diabetes [id number]-[id number] with sliding scale insulin. Continue home insulin regimen. 5. Recent MSSA bacteremia-completed treatment. Patient to follow-up with ID as outpatient. 6. Chronic heart failure with preserved ejection fraction-recent echo with EF 65%, stage I diastolic dysfunction. 7. Probable COPD-as needed albuterol aerosol. Outpatient follow-up with pulmonary medicine for formal PFTs. 8. Obesity hypoventilation syndrome/probable NILDA-we will need further outpatient follow-up/evaluation. 9. Morbid obesity- encouraged diet and lifestyle modifications. 10. History of DVT-Xarelto held for biopsy plans. 11. Debility/failure to thrive- PT/OT. Will need SNF when medically stable. Physical Exam Const alert, oriented x3 and no apparent distress Orientation / Consciousness: awake, oriented to person, oriented to place and oriented to time Nutritional Appearance: obese HEENT normocephalic and moist oral mucous membranes Eyes PERRL, EOMs intact bilaterally and conjunctivae normal Neck no lymphadenopathy Resp clear to auscultation bilaterally Auscultation: diminished lung sounds Cardio regular rate, regular rhythm and no murmurs Peripheral Pulses: pulses 2+ throughout GI normal to inspection, nondistended, normoactive bowel sounds, non-tender and non-distended Extremity normal to inspection General Extremity: edema bilateral lower extremity Skin no rashes or lesions noted Lesions: no lesions Rashes: no rashes Trauma: no lacerations or abrasions Neuro CN's II-XII intact bilaterally, no focal motor deficits, no sensory deficits noted and deep tendon reflexes 2+ bilaterally Psych mental status grossly normal and affect normal Patient seen and examined prior to discharge. Physical assessment as noted above. Patient transferred to [facility] as noted above for renal biopsy and further nephrology evaluation. This patient was seen by CHHAYA Roberts under the supervision of Dr. Basilio. Time spent examining patient, reviewing data and subsequent management of care: 20 Minutes Weight / BMI Weight Weight: 401 lb 3.861 oz Body Mass Index (BMI) 64.7 ABG / Lab / Microbiology Data Result Diagrams: 07/20/21 05:55 07/20/21 05:55 Laboratory: Laboratory Results - last 24 hr 07/20/21 11:23: POC Glucose 119 H 07/20/21 15:13: POC Glucose 116 H 07/20/21 22:03: POC Glucose 101 Microbiology: Microbiology 07/20/21 19:40 Nasal Secretion SARS-CoV-2 Antigen (Rapid) - Final 07/19/21 08:48 Urine, Clean Catch Urine Culture - Preliminary Culture exhibits no growth. Radiography Diagnostic Testing: Radiology Impression Chest X-Ray 07/19/21 08:15 IMPRESSION: Mild increased markings in the right upper lobe adjacent to the right minor fissure. Stable mild increased markings at the lung bases suggestive of scarring. Prominence of the left pulmonary artery. Electronically Signed: Saleem Saavedra MD at 8:49 EDT , Meaningful Use Info Meaningful Use Diagnoses (Choose all that apply): None applicable Discharge Plan Admission Admit Date/Time: 07/19/21 15:22 Primary Reason for Your Visit: Renal failure Attending Provider: Thang Basilio Primary Care Provider: Maury Harley Consulting Providers: Ciarra Valencia Discharge Orders/Prescriptions Prescriptions: No Action latanoprost 0.005 % drops 1 drp EACH EYE QHS RF: 0 ipratropium-albuterol 0.5 mg-3 mg(2.5 mg base)/3 mL Solution For Nebulization 3 ml inhalation Q4HWA.RT PRN (Reason: SOB) Qty: 0 RF: 0 nystatin [Nyamyc] 100,000 unit/gram powder 1 applic topical BID RF: 0 insulin lispro [Humalog KwikPen Insulin] 100 unit/mL Insulin Pen 5 unit subcut TIDAC Qty: 0 RF: 0 metoprolol tartrate 25 mg Tablet 25 mg PO BID Qty: 0 RF: 0 menthol-zinc oxide [Calmoseptine] 0.44-20.6 % Ointment 1 applic topical BID Qty: 0 RF: 0 tramadol 50 mg Tablet 50 mg PO DAILY RF: 0 pantoprazole [Protonix] 40 mg Tablet,Delayed Release (Dr/Ec) 40 mg PO DAILY RF: 0 mupirocin 2 % Ointment 1 applic TOPICAL BID RF: 0 Referrals / Follow Up: Maury Harley, [Primary Care Provider] - Disposition Disposition (needs filled in before D/C Order can be placed): Acute Care Hospital Documented by User: Dr. Thang Basilio DO 07/21/21 12:44 Providers Date of Admission: 07/19/21 Reason For Visit: ARF, HYPERKALEMIA, ANASERCA Medications at Discharge Home Medications latanoprost 1 drp EACH EYE QHS 06/11/21 ipratropium-albuterol 3 ml INHALATION Q4HWA.RT PRN #0 ml 06/20/21 nystatin [Nyamyc] 1 applic TOPICAL BID 06/20/21 insulin lispro [Humalog KwikPen Insulin] 5 unit SUBCUT TIDAC #0 ml 07/16/21 menthol-zinc oxide [Calmoseptine] 1 applic TOPICAL BID #0 g 07/16/21 metoprolol tartrate 25 mg PO BID #0 tab 07/16/21 mupirocin 1 applic TOPICAL BID 07/19/21 pantoprazole [Protonix] 40 mg PO DAILY 07/19/21 tramadol 50 mg PO DAILY 07/19/21 Hospital Course Operations None Summary of Care Provided Minutes Spent on Discharge: 35 Hospital Course: Patient seen and examined independently. Data and vitals reviewed. I agree with the above note by the nurse practitioner. 1. Acute kidney injury Ongoing. Nonoliguric unclear etiology creatinine now up to 3.35. Baseline is around 0.96. DW Dr. Valencia who is currently at [facility] today and states that the radiologist feels that the could do the kidney biopsy. Waiting on images to be pushed over there. Unfortunately in the interventional radiology here does not feel that can be safely done. No need for renal replacement therapy at this time but nephrology is continue to follow along. Transfered to [facility] 2. Acute blood loss anemia Hemoglobin has dropped from 10.1 on June 27-7.6 today. Heme positive stools Rivaroxaban on hold Continue PPI May need to consider GI consultation. ABG / Lab / Microbiology Data Result Diagrams: 07/20/21 05:55 07/20/21 05:55 Discharge Plan Admission Admit Date/Time: 07/19/21 15:22 Primary Reason for Your Visit: Renal failure Attending Provider: Thang Basilio Primary Care Provider: Maury Harley Consulting Providers: Ciarra Valencia Discharge Orders/Prescriptions Prescriptions: No Action latanoprost 0.005 % drops 1 drp EACH EYE QHS RF: 0 ipratropium-albuterol 0.5 mg-3 mg(2.5 mg base)/3 mL Solution For Nebulization 3 ml inhalation Q4HWA.RT PRN (Reason: SOB) Qty: 0 RF: 0 nystatin [Nyamyc] 100,000 unit/gram powder 1 applic topical BID RF: 0 insulin lispro [Humalog KwikPen Insulin] 100 unit/mL Insulin Pen 5 unit subcut TIDAC Qty: 0 RF: 0 metoprolol tartrate 25 mg Tablet 25 mg PO BID Qty: 0 RF: 0 menthol-zinc oxide [Calmoseptine] 0.44-20.6 % Ointment 1 applic topical BID Qty: 0 RF: 0 tramadol 50 mg Tablet 50 mg PO DAILY RF: 0 pantoprazole [Protonix] 40 mg Tablet,Delayed Release (Dr/Ec) 40 mg PO DAILY RF: 0 mupirocin 2 % Ointment 1 applic TOPICAL BID RF: 0 Referrals / Follow Up: Maury Harley DO [Primary Care Provider] - Disposition Disposition (needs filled in before D/C Order can be placed): Acute Care Hospital Charges/Coding Visit Charges Inpatient E&M: 80838 Disch Hosp
[2021-07-20 19:21] VITALS: BP 157/85; PULSE 108; RESP 20; TEMP 36.8; O2SAT 94
[2021-07-20 22:07] VITALS: BP 157/78; PULSE 102; RESP 18; TEMP 36.9; O2SAT 98
[2021-07-20] MEDS: Latanoprost 0.005% 1 Bottle 1 DRP EACH EYE (22:24)
[2021-07-20 22:25] VITALS: BP 157/78; PULSE 102
[2021-07-20 22:30] LABS: Bedside Glucose 101 mg/dL (74-106)
[2021-07-20] MEDS: 0.9 % NaCl (Sterile) Posiflush 10 mL IV (23:52)
--- NOTE | 2021-07-21 01:01 | NURSING ---
Report called to GAGE Sanchez at [facility] at 2039. POA/héctor Rosas notified at 2099 of pt being transferred. Gave POA room assignment and phone number to new facility. Pt [facility] with [facility] with [facility].
== END 2021-07-21 00:20 | disposition short-term general hospital (02) | DRG 683 ==
LOC: ED 08:59 → PCU 10:31
PROVIDERS: Nurse Practitioner Adult Health; Admitting Provider Internal Medicine; Emergency Provider Emergency Medicine; PCP Family Medicine
DX: N17.9 Acute kidney failure, unspecified (principal); E66.2 Morbid (severe) obesity with alveolar hypoventilation; D62 Acute posthemorrhagic anemia; I50.32 Chronic diastolic (congestive) heart failure; Z68.44 Body mass index [BMI] 60.0-69.9, adult; E77.8 Other disorders of glycoprotein metabolism; R62.7 Adult failure to thrive; I11.0 Hypertensive heart disease with heart failure; E11.9 Type 2 diabetes mellitus without complications; Z79.4 Long term (current) use of insulin; J44.9 Chronic obstructive pulmonary disease, unspecified; D64.9 Anemia, unspecified; E83.52 Hypercalcemia; E87.5 Hyperkalemia; R82.71 Bacteriuria; R31.9 Hematuria, unspecified; R80.9 Proteinuria, unspecified; Z79.01 Long term (current) use of anticoagulants; Z96.612 Presence of left artificial shoulder joint
CPT/HCPCS: 36415; 36592; 71045; 74176; 80048; 81001; 82962; 85025; 85610; 85730; 87086; 87426; 93005; 97162; 97166; 97802; 99284; J7030; A4216

== ENCOUNTER 2021-08-10 12:44 | Inpatient (IN) | payer MEDICARE, OTHER, SELFPAY ==
[2021-08-10] VITALS (14 sets, daily range): BP systolic 96–126; BP diastolic 62–74; PULSE 89–113; RESP 14–36; TEMP 36.6–36.9; O2SAT 95–100; BMI 56.7
--- NOTE | 2021-08-10 13:32 | PCM.HP.STD ---
[facility] - [facility] General Date of Admission: 08/10/21 Date of Service: 08/10/21 Chief Complaint: Shortness of breath and hypoxia today [facility] Narrative MICHEAL LEÓN, is a 70 M is [place] [facility] resident is being directly admitted from [facility] ED for shortness of breath and hypoxia. group home patient was found to have pulse ox 49% on RA although he wears oxygen through nasal cannula but he takes it off frequently. Patient also very short of breath and gasping that started today. He has mild chest tightness and wheezing but denies chest pain or pressure. Patient has history of multiple admissions in [facility] and TCU. Patient was transferred to [facility] on July 20 for renal biopsy. He stayed there for 1 week and few days and was discharged to a [facility] [place] [facility]. There is also been multiple change in anticoagulant. Patient initially was on warfarin in June 20, 2021 which was held due to supratherapeutic INR. Thereafter it was changed to Xarelto which was again held because of kidney biopsy. It is unclear whether it was resumed after kidney biopsy. Patient has a CKD stage IV and follows [facility]. Chest x-ray shows pulmonary venous congestion and crowding. Hemoglobin is 8.1. BUN/creatinine 70/2.93. Lactic acid 1.9. BNP high. Labs reviewed. Further labs, EKG and chest x-ray discussion assessment and plan History taken from patient and from daughter Alison over the phone. [facility] Medical History 2019-nCoV vaccination declined Cellulitis Debility DVT (deep venous thrombosis) Fall HTN (hypertension) Leukocytosis Obesity Home Medications latanoprost 1 drp EACH EYE QHS 06/11/21 [History Last Taken 08/09/21 22:00] ipratropium-albuterol 3 ml INHALATION Q4HWA.RT PRN #0 ml 06/20/21 [Rx Last Taken 08/10/21 06:30] insulin lispro [Humalog KwikPen Insulin] 5 unit SUBCUT TIDAC #0 ml 07/16/21 [Rx Last Taken Unknown] menthol-zinc oxide [Calmoseptine] 1 applic TOPICAL BID #0 g 07/16/21 [Rx Last Taken Unknown] metoprolol tartrate 25 mg PO BID #0 tab 07/16/21 [Rx Last Taken Unknown] pantoprazole [Protonix] 40 mg PO DAILY 07/19/21 [History Last Taken Unknown] tramadol 50 mg PO DAILY 07/19/21 [History Last Taken Unknown] bumetanide [Bumex] 2 mg PO DAILY 08/10/21 [History Last Taken Unknown] levothyroxine [Synthroid] 25 mcg PO DAILY 08/10/21 [History Last Taken Unknown] potassium chloride 40 meq PO BID 08/10/21 [History Last Taken Unknown] Allergy/AdvReac Type Severity Reaction Status Date / Time No Known Allergies Allergy Verified 06/11/21 15:09 Surgical History History of left shoulder replacement Social History household members: none housing: [place] [facility] current occupational status: disabled Smoking Status: Never smoker alcohol intake: never substance use type: does not use ROS ROS Narrative 14 ROS is incomplete due to patient confusion, disorientation/possible dementia and taken from patient's daughter Alison. Constitutional: Reports fatigue and weakness. No fever reported. HEENT: Sleep apnea reports systems reviewed and no addt'l complaints, except as documented Respiratory/Chest: Admission HPI Gastrointestinal: Denies coffee ground emesis, hematemesis or vomiting Genitourinary: Chronic Franco catheter, Franco catheter was changed on August 08, 2021. Musculoskeletal: Reports joint pain and limited range of motion. Very poor mobility mainly bedbound. Neurologic: Denies seizure-like activity. skin: Bilateral lymphedema and swelling. Endocrinology: Reports systems reviewed and no addt'l complaints, except as documented Hematologic/Lymphatic: Reports systems reviewed and no addt'l complaints, except as documented Rest 14 ROS are negative except as mentioned in HPI Vital Signs Vital Signs Vital Signs: 08/10/21 12:52 Temperature 98.5 F Temperature Source Oral Pulse Rate 100 Respiratory Rate 32 H Blood Pressure 96/62 Blood Pressure Mean 73 Blood Pressure Source Monitor Blood Pressure Position Semi-Fowlers Blood Pressure Location Left Forearm Pulse Ox 99 Oxygen Delivery Method Nasal Cannula Oxygen Flow Rate (L/min) 4 Weight Weight: 362 lb 10.566 oz Body Mass Index (BMI) 56.7 Physical Exam Narrative General: Awake, intermittent confused, disoriented to time but oriented to place and person. HEENT: Crowded oropharynx. Deep oropharyngeal structures not clearly visible Oral: Oral mucosa are dry. No Gingival or Mucosal Lesions/ Ulcerations Neck: Supple, No JVD, Negative Carotid Bruits Lungs: Air entry severely diminished. On oxygen. Bronchial pattern of breathing. Cardiovascular: Sinus tachycardia, normal S1, Normal S2, No murmurs Abdomen: Bowel Sounds Present, Soft, Non Tender, Non-Distended : Chronic Franco catheter. Dark-colored urine no renal angle tenderness. No suprapubic tenderness. Extremities: bilateral pitting edema and lymphedema, Capillary Refill Less than 3 Seconds Skin: Scab over left leg. Bilateral lymphedema and mild seepage Musculoskeletal: Muscle strength, 3/5 at major joints of lower extremities. ROM severely limited. Neurological: Cranial nerves II-XII grossly intact, DTR 2+/4. No focal deficit Psych/Mental Status: Flat affect. Forgetfulness/amnesia, possible dementia Assessment & Plan Assessment/Plan (1) Acute renal failure: QUALIFIERS: Acute renal failure type: unspecified Qualified Code(s): N17.9 - Acute kidney failure, unspecified (2) CKD stage 4 due to type 1 diabetes mellitus: (3) COPD exacerbation: (4) CHF exacerbation: QUALIFIERS: Heart failure type: diastolic Qualified Code(s): I50.33 - Acute on chronic diastolic (congestive) heart failure PLAN: 1. Acute on chronic hypoxic respiratory failure due to COPD exacerbation and CHF exacerbation: Patient is being admitted in PCU directly from [facility]. Patient was accepted by my colleague on the PCU floor. ABG, D-dimer and BiPAP ordered stat. DuoNeb stat. 2. Acute on chronic HFpEF: Patient had last echo in June 2021 shows EF 65%, stage I diastolic dysfunction. Study was technically difficult due to body habitus and valves could not be well visualized. Subsequently patient also had SHLOMO because of MSSA bacteremia in June 2019 did not show any vegetation reported normal mitral tricuspid valve. Mild diffuse aortic valve thickening. Currently blood pressure is low systolic 90s and heart rate 100/min therefore Lasix 20 mg IV 1 dose now. After that Lasix 40IV twice daily. Heart failure core measures including intake and output, fluid restriction less than 1500 mL, daily weight monitoring, kidney and electrolytes monitoring. Serial troponins ordered. 3. Possible COPD exacerbation: Patient never had PFT done last discharge was advised to follow-up in pulmonary clinic but patient never made it. Patient has been never a smoker. DuoNeb every 4 hourly. IV Solu-Medrol, incentive spirometry, Pep ordered. Chest x-ray from outside reviewed and reported as low lung volume with bilateral perihilar haziness possible central pulmonary congestion or atypical pneumonia. Left perihilar through lower lobe fibrosis. Chest x-ray imaging is not uploaded. 4. Acute kidney injury on CKD G4: Recent renal ultrasound unremarkable. Patient recently had renal biopsy in [facility]. Patient follows [facility] and is consulted. As Xarelto is more renally excreted therefore will change to Eliquis. 5. Chronic normocytic anemia-patient hemoglobin is 8.1. Patient hemoglobin has been between 7.5-8.2 recently in July 2021. Last 1 in our system 7.6 on 07/20. Continue PPI. Stool positive for occult blood 07/14/21. Monitor CBC 4. Type 2 diabetes [id number] [facility] coverage Humalog sliding scale continue home insulin regimen. 5. Recent MSSA bacteremia-patient completed antibiotic IV cefazolin treatment as per ID recommendation completed treatment. 6. Obesity hypoventilation syndrome/probable NILDA: The patient will need formal pulmonary clinic evaluation for PFT and sleep study. Continue BiPAP 7. Debility/failure to thrive, very limited ADL, morbid obesity-PT OT evaluation. 9. History of DVT: Bilateral venous duplex ordered. Because of high risk of bleeding and severe anemia, GAYE on CKD G4, hematuria on UA, low-dose Eliquis 2.5 mg twice daily Living will/advanced directive/end of life care: Patient does have living will or advanced directive. His power of electrical tryout person for health is her daughter, Alison. After discussion of benefits/risks procedures involved with full code, DNR CC arrest and DNR CC, the patient and daughter opted for full code in the beginning. Patient had the opinion that if he does not improve in few days or his life is very prolonged or becomes ventilator dependent, he wants to be terminally extubated. In the beginning, Patient does want artificial life support including intubation, tube feed, ventilator and/chest compression, central venous catheter, vasopressor and DC shock if needed Total time spent in renb-rn-yugg encounter in discussion of advanced directive 16 minutes. Charges/Coding Visit Charges Inpatient E&M: 43982 Init Hosp L3 Procedures Hospitalists Procedures: [id number] Advncd Care Plan 30 Min
[2021-08-10] MEDS: Azithromycin 250 MG Tablet 500 MG PO (14:10)
[2021-08-10] MEDS: Ceftriaxone 1 GM/50 ML BAG IV (14:11)
[2021-08-10] MEDS: Furosemide 20 MG/2 ML VIAL IV (14:12)
--- NOTE | 2021-08-10 14:19 | VDLE_ITS ---
Reason For Study: swelling RIGHT LEFT GSV is normal. GSV is normal. FV is compressible, spontaneous, phasic, CFV is compressible, spontaneous, phasic, competent and demonstrates normal competent, and demonstrates normal augmentation. augmentation. POP V is compressible, spontaneous, phasic, FV is compressible, spontaneous, phasic, competent and demonstrates normal competent and demonstrates normal augmentation. augmentation. T/P Trunk is compressible. POP V is compressible, spontaneous, phasic, PTV is compressible. competent and demonstrates normal RT PerV is compressible. augmentation. Unable to image R CFV due to pt body habitus. T/P Trunk is compressible. Procedure PTV is compressible. This is a venous duplex using B-mode, color LT PerV is compressible. flow and spectral Doppler. Exam performed portable in patient room. The exam was of fair technical quality due to pt body habitus.. A preliminary report was called and/or faxed to the PCU charge machine operator. VL/Venous Duplex US - Cam Extrem Interpretation Summary No evidence for acute deep venous thrombosis bilateral lower extremities with p atent and compressible bilateral great saphenous veins. Technical limitation of inability to image the right common femoral vein secondary to body habitus. The entire examination was felt to be of fair quality secondary to body habitus . Ordering Physician: Donte Serna Performed By: Saji Koenig RVT
[2021-08-10 14:30] LABS: Magnesium 1.7 mg/dL (1.6-2.6); Phosphorus 4.2 mg/dL (2.5-4.9); Troponin-I HS 20 pg/mL (3.0-78.0)
[2021-08-10 14:52] LABS: D-Dimer Quantitative (DVT/PE) 15.37 FEU/ug/m (0.27-0.49)
[2021-08-10] MEDS: APIXABAN 2.5 MG TABLET PO (14:59)
[2021-08-10 15:00] LABS: Allen Test Positive; Base Excess 2 mmol/L (-2 to +2); Bicarbonate 26.8 mmol/L (22-26); Blood Gas Specimen Type ART; Mode BiLevel; O2 Delivery Device BiPAP; PO2 133 mmHG (75-100); SITE R Radial; SO2 99 % (95-99); Total Carbon Dioxide 28 mmol/L; pCO2 43.5 mmHg (35-45)
--- NOTE | 2021-08-10 15:15 | NM_ITS ---
CLINICAL: Male, 70 years old. Suspected PE NUCLEAR VENTILATION/PERFUSION - LUNG TECHNIQUE: The patient was administered 5.6 mCi of Tc MAA followed by a perfusion lung scan. The patient was administered 48.9 mCi of Tc DTPA aerosol followed by a ventilation lung scan. Comparison made to prior chest radiograph dated 08/11/2021. FINDINGS: The pulmonary perfusion study demonstrates uniform perfusion throughout both lung maurer. There are no demonstrated segmental or subsegmental perfusion defects The ventilation study demonstrates central clumping of the radiopharmaceutical suggestive of airway disease. There are no segmental or subsegmental ventilation abnormalities. NM/Lung Scan Vent/Perf IMPRESSION: Low probability of pulmonary embolism. Findings suggestive of airway disease. Electronically Signed: Saleem Saavedra MD at 10:53 EDT ,
[2021-08-10] MEDS: Ipratropium/Albuterol Sulfate 3 ML AMPUL.NEB INHALATION ×2 (15:31→19:45)
--- NOTE | 2021-08-10 15:57 | NURSING ---
héctor BRINK IS [facility] [phone]
--- NOTE | 2021-08-10 15:58 | NURSING ---
CALLED [facility] VERIFIED MEDS AND GLORIA WAS INSERTED AUGUST 04 2021
[2021-08-10 16:12] LABS: Troponin-I HS 25 pg/mL (3.0-78.0)
--- NOTE | 2021-08-10 16:24 | EKG12_ITS ---
Test Reason : Blood Pressure : / mmHG Vent. Rate : 108 BPM Atrial Rate : 108 BPM P-R Int : 180 ms QRS Dur : 128 ms QT Int : 348 ms P-R-T Axes : 001 027 013 degrees QTc Int : 466 ms Sinus tachycardia Right bundle branch block Abnormal ECG When compared with ECG of 19-JUL-2021 08:23, No significant change was found Confirmed by MERCED VALDEZ, THELMA ([id number]), metropolitan editor CARLYLE MADISON ([id number]) on 08/13/2021 9:51:19 AM Referred By: ALYSON Confirmed By:BRANDON BLACKWOOD MD
[2021-08-10 17:06] LABS: Bedside Glucose 139 mg/dL (74-106)
[2021-08-10] MEDS: Furosemide 40 MG/4 ML Vial IV (17:09)
[2021-08-10] MEDS: 0.9% Saline Lock 10 ML Syringe IV ×3 (17:10→22:33)
[2021-08-10] MEDS: Insulin Lispro 100 UNIT/ML INSULN.PEN SC ×2 (18:26→22:05)
[2021-08-10 19:18] LABS: Troponin-I HS 20 pg/mL (3.0-78.0)
--- NOTE | 2021-08-10 20:56 | PCM.HOSP.N ---
Hospitalist Note UOP not marked despite lasix diuresis. Review of labs with noted hx CKD stage IV. Per discussion with staff will transition to IV lasix continuous infusion and continue to closely monitor UOP. Encouraged continued BIPAP and placement of the SHELLI wraps already ordered. CODE status: Patient ALINA is his niece and living will is currently in place. Discussed CODE status at length with healthcare power of bankruptcy attorney as patient made insinuations that he would prefer to not be a full code at this time. Given patient intermittent confusion opted to discuss this also with his healthcare power of bankruptcy attorney specifically including difference between FULL code, DNR-CCA and DNR-CC status. Following discussions about the differences in these status, requested patient be DNR CCA, no intubation. She notes that she still needs to discuss with family and patient if he is more cognizant about any future considerations for dialysis if this were to ever become necessary. Advanced Care Planning Face to Face Time: 16 minutes. Procedures Hospitalists Procedures: [id number] Advncd Care Plan 30 Min
[2021-08-10] MEDS: Furosemide 500 MG in Empty Viaflex 50 mL 1 EACH CONT INF (21:28)
[2021-08-10] MEDS: Menthol/Lanolin/Calamine/Znox 113 GM Tube 1 APPLIC TOPICAL (22:29)
[2021-08-10] MEDS: Latanoprost 0.005% 1 Bottle 1 DRP EACH EYE (22:30)
[2021-08-11] VITALS (26 sets, daily range): BP systolic 119–140; BP diastolic 69–85; PULSE 85–106; RESP 14–32; TEMP 36.3–36.6; O2SAT 95–100
[2021-08-11 00:30] LABS: Bedside Glucose 219 mg/dL (74-106)
[2021-08-11] MEDS: 0.9% Saline Lock 10 ML Syringe IV ×2 (05:20→10:42)
[2021-08-11] MEDS: Levothyroxine 25 MCG TABLET PO (05:21)
[2021-08-11 06:10] LABS: Absolute Lymphocyte Count 0.33 X10^3/uL (0.83-4.51); Absolute Neutrophil Count 13.4 X10^3/uL (2.0-7.7); Basophil# 0.02 X10^3/uL; Basophil% 0.1 % (0-1); Hemoglobin 7.5 g/dL (13.0-16.5); Lymphocyte # 0.33 X10^3/ul (0.83-4.51); Lymphocyte % 2.3 % (19-41); Mean Corpuscular Hgb 26.2 pg (27.0-32.0); Mean Corpuscular Volume 87.4 fL (80-94); Mean Platelet Vol. 9.6 fl (6.2-12.0); Monocyte# 0.23 X10^3/uL; Monocyte% 1.6 % (0-10); NRBC Flagged by Analyzer 0.3 % (0-5); Neutrophil % 93.4 % (47-70); POSITIVE DIFFERENTIAL YES; Platelet Count 342 K/mm3 (150-450); RBC Distribution Width CV 18.9 % (11.6-14.6); RBC Distribution Width SD 60.2 fl (35.1-43.9); Red Blood Count 2.86 M/mm3 (4.6-6.2); White Blood Count 14.4 K/mm3 (4.4-11.0)
[2021-08-11 06:11] LABS: Differential Indicated SCAN CRITERIA MET
[2021-08-11 06:32] LABS: Anisocytosis 2+
[2021-08-11 06:41] LABS: Anion Gap 6 (5-15); BUN 75 mg/dL (7-18); Calcium,Total 8.8 mg/dL (8.5-10.1); Chloride 106 mmol/L (98-107); Cholesterol 80 mg/dL (200); Creatinine, Serum 2.78 mg/dL (0.70-1.30); EST Glomerular Filtration Rate 24 mL/min (>60); Est Glom Filt Rate - Afr Amer 29 mL/min (>60); Estimated Creatinine Clearance 23.45 ml/min; Glucose 190 mg/dL (74-106); High Density Lipoprotein 22 mg/dL; Potassium 4.8 mmol/L (3.5-5.1); Sodium Level 139 mmol/L (136-145); Thyroid Stim Hormone (TSH) 2.49 uIU/mL (0.358-3.74); Triglycerides 90 mg/dL; Very Low Density Lipoprotein 18 mg/dL (5-40)
[2021-08-11] MEDS: Ipratropium/Albuterol Sulfate 3 ML AMPUL.NEB INHALATION ×5 (07:07→19:58)
[2021-08-11 08:40] LABS: Bedside Glucose 183 mg/dL (74-106)
[2021-08-11] MEDS: Insulin Lispro 100 UNIT/ML INSULN.PEN SC ×6 (09:05→20:52)
--- NOTE | 2021-08-11 09:20 | RAD_ITS ---
STUDY: X-RAY CHEST REASON FOR EXAM: Male, 70 years old. Per VQ scan per nuc med request TECHNIQUE: Single AP portable view of the chest. COMPARISON: Comparison is made with prior study dated 07/19/2021. FINDINGS: EKG electrodes are seen. There is evidence of vascular congestion and mild degree of CHF. Thickening of both major fissures. Mild bibasilar atelectasis. Blunting of both costophrenic angles. There is moderate cardiac enlargement. Normal mediastinum and chante. Normal visualized pulmonary arteries. There is atherosclerotic tortuosity of the aortic arch and descending thoracic aorta. There are diffuse degenerative changes of the visualized thoracic spine. The patient is status post left shoulder replacement. There is no demonstrated abnormality of the visualized soft tissue structures of the upper abdomen. RAD/Chest 1 View (Portable) IMPRESSION: Cardiomegaly and CHF. Electronically Signed: Saleem Saavedra MD at 10:08 EDT ,
--- NOTE | 2021-08-11 09:31 | WOUNDNOTE ---
wound photo: sacrum/buttocks
--- NOTE | 2021-08-11 09:58 | CASEMGMT ---
MIMI faxed updates to [facility]. MIMI will check in with patient and his niece to make sure the plan is to return to [facility]. Leslie Caldera MSW TRANSFER CLERK
[2021-08-11] MEDS: Ceftriaxone 1 GM/50 ML BAG IV (10:41)
[2021-08-11] MEDS: Metoprolol Tartrate 25 MG Tablet PO ×2 (10:44→20:50)
[2021-08-11] MEDS: guaiFENesin 1,200 MG Tablet 1200 MG PO ×2 (10:44→20:51)
[2021-08-11] MEDS: Pantoprazole Sodium 40 MG Tablet PO (10:45)
[2021-08-11] MEDS: Azithromycin 250 MG Tablet 500 MG PO (10:45)
[2021-08-11] MEDS: Menthol/Lanolin/Calamine/Znox 113 GM Tube 1 APPLIC TOPICAL ×2 (10:45→20:51)
[2021-08-11] MEDS: APIXABAN 2.5 MG TABLET PO ×2 (10:45→20:50)
--- NOTE | 2021-08-11 10:52 | CASEMGMT ---
SW spoke with patient and asked if he plans on returning to [facility] at discharge. Patient asked SW to call his niece Alison. SW called Alison and confirmed returning to [facility] is the plan. SW will keep [facility] updated. Plan: d/c back to [facility] when medically ready. Leslie GAINES
--- NOTE | 2021-08-11 10:57 | CON.PCM.RE_ITS ---
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 Peak creatinine was 3.6. Slowly trending down. Clinically volume overloaded. This could be part of nephritis syndrome. Started on IV Lasix drip. We will add metolazone. Last echocardiogram with grade 1 diastolic dysfunction. Maintain Thibodeaux catheter for now. (3) Edema: HPI Consult Data Date of Consult: 08/11/21 HPI Narrative HPI Narrative: MICHEAL LEÓN, is a 70 M who presents to the hospital with sh ortness of breath. Nephrology consulted for renal failure. He is well-known to me from recent admission. He was recently admitted here with lower extremity osteomyelitis, bacteremia with MSSA. Sustained acute renal failure. Transferred to [facility] for kidney biopsy. 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 Did not require dialysis. Peak creatinine was around 3.6. Discharge creatinine was around 3.0. He was discharged to a longterm and was found to have shortness of breath, confusion and sent back here. he has moderate amount of anasarca. Came in with a Thibodeaux catheter. Urine output is okay. VQ scan this morning. Low probability for PE. Currently complains of shortness of breath. [facility] Medical History 2019-nCoV vaccination declined Cellulitis Debility DVT (deep venous thrombosis) Fall HTN (hypertension) Leukocytosis Obesity Home Medications latanoprost 1 drp EACH EYE QHS 06/11/21 [History Last Taken 08/09/21 22:00] ipratropium-albuterol 3 ml INHALATION Q4HWA.RT PRN #0 ml 06/20/21 [Rx Last Taken 08/10/21 06:30] insulin lispro [Humalog KwikPen Insulin] 5 unit SUBCUT TIDAC #0 ml 07/16/21 [Rx Last Taken Unknown] menthol-zinc oxide [Calmoseptine] 1 applic TOPICAL BID #0 g 07/16/21 [Rx Last Taken Unknown] metoprolol tartrate 25 mg PO BID #0 tab 07/16/21 [Rx Last Taken Unknown] pantoprazole [Protonix] 40 mg PO DAILY 07/19/21 [History Last Taken Unknown] tramadol 50 mg PO DAILY 07/19/21 [History Last Taken Unknown] bumetanide [Bumex] 2 mg PO DAILY 08/10/21 [History Last Taken Unknown] levothyroxine [Synthroid] 25 mcg PO DAILY 08/10/21 [History Last Taken Unknown] potassium chloride 40 meq PO BID 08/10/21 [History Last Taken Unknown] Allergy/AdvReac Type Severity Reaction Status Date / Time No Known Allergies Allergy Verified 06/11/21 15:09 Surgical History History of left shoulder replacement Social History household members: none housing: longterm current occupational status: disabled Smoking Status: Never smoker alcohol intake: never substance use type: does not use ROS ROS Narrative Negative except the above Physical Exam Narrative Alert awake oriented x 3 no obvious distress no pallor no icterus no JVD s1s2 no murmurs lungs clear abdomen soft no organomegaly +++ edema no cyanosis thibodeaux + Lab / Micro Data Result Diagrams: 08/11/21 05:40 08/11/21 05:40 Labs: Laboratory Results - last 24 hr 08/10/21 13:25: Phosphorus 4.2, Magnesium 1.7, Troponin I High Sens 20 08/10/21 13:25: D-Dimer Quant (PE/DVT) 15.37 H* 08/10/21 15:29: Troponin I High Sens 25 08/10/21 16:59: POC Glucose 139 H 08/10/21 18:54: Troponin I High Sens 20 08/10/21 22:01: POC Glucose 219 H 08/11/21 05:40: WBC 14.4 H, RBC 2.86 L, Hgb 7.5 L, Hct 25.0 L, MCV 87.4, MCH 26.2 L, MCHC 30.0 L, RDW Std Deviation 60.2 H, RDW Coeff of Jory 18.9 H, Plt Count 342, MPV 9.6, Immature Gran % (Auto) 2.600 H, Neut % (Auto) 93.4 H, Lymph % (Auto) 2.3 L, [place] % (Auto) 1.6, Eos % (Auto) 0.0, Baso % (Auto) 0.1, Absolute Neuts (auto) 13.4 H, Absolute Lymphs (auto) 0.33 L, Nucleated RBC % 0.3, Anisocytosis 2+ 08/11/21 05:40: Sodium 139, Potassium 4.8, Chloride 106, Carbon Dioxide 27.0, Anion Gap 6, BUN 75 H, Creatinine 2.78 H, Estim Creat Clear Calc 23.45, Est GFR (MDRD) Af Amer 29 L, Est GFR (MDRD) Non-Af 24 L, BUN/Creatinine Ratio 27.0 H, Glucose 190 H, Calcium 8.8, Triglycerides 90, Cholesterol 80, LDL Cholesterol 40, VLDL Cholesterol 18, HDL Cholesterol 22 L, TSH 2.49 08/11/21 08:05: POC Glucose 183 H Micro: Microbiology 08/10/21 15:29 Blood Culture (Wb) - Other Bacteria Detection (PCR) - Final Staphylococcus aureus 08/10/21 15:29 Blood Culture (Wb) - Other Blood Culture - Preliminary 08/10/21 13:45 Mucosa - Nasopharyngeal Respiratory Panel (PCR) - Final ABG Data ABG results: ABG 08/10/21 14:53 Specimen Type ART Sample Site R Radial pH 7.40 Bicarbonate Actual 26.8 H Total CO2 28 Base Excess 2 O2 Saturation 99 ABG pCO2 43.5 ABG pO2 133 H Garrison Test Positive O2 Delivery Device BiPAP Vent Mode BiLevel Radiology Impression Venous Doppler Study 08/10/21 14:19 Interpretation Summary No evidence for acute deep venous thrombosis bilateral lower extremities with patent and compressible bilateral great saphenous veins. Technical limitation of inability to image the right common femoral vein secondary to body habitus. The entire examination was felt to be of fair quality secondary to body habitus. Ordering Physician: Donte Serna Performed By: Saji Koenig, RVT Lung Scan-VQ NM 08/10/21 15:15 IMPRESSION: Low probability of pulmonary embolism. Findings suggestive of airway disease. Electronically Signed: Saleem Saavedra MD at 10:53 EDT , Chest X-Ray 08/11/21 09:20 IMPRESSION: Cardiomegaly and CHF. Electronically Signed: Saleem Saavedra MD at 10:08 EDT ,
--- NOTE | 2021-08-11 11:27 | PN.HOSP_ITS ---
Subjective Subjective Seen and examined. Follow-up for acute on chronic hypoxic respiratory failure, CHF and COPD exacerbation. Positive blood cultures office staff x2. Objective Data Objective Data Vital Signs: Vital Signs Temp Pulse Resp BP Pulse Ox 97.4 F L 106 H 32 H 119/73 100 08/11/21 07:00 08/11/21 10:44 08/11/21 09:33 08/11/21 10:44 08/11/21 09:33 Oxygen Flow Rate (L/min) 4 Oxygen Delivery Method Nasal Cannula Weight: 362 lb 14.094 oz Body Mass Index (BMI) 56.7 Intake & Output: Intake and Output for Last 24 Hours 08/09/21 08/10/21 08/11/21 23:59 23:59 23:59 Intake Total 252 / 252 50 / 50 Output Total 550 / 550 300 / 300 Balance -298 / -298 -250 / -250 Lab / Micro Data Result Diagrams: 08/11/21 05:40 08/11/21 05:40 Labs: Laboratory Results - last 24 hr 08/10/21 13:25: Phosphorus 4.2, Magnesium 1.7, Troponin I High Sens 20 08/10/21 13:25: D-Dimer Quant (PE/DVT) 15.37 H* 08/10/21 15:29: Troponin I High Sens 25 08/10/21 16:59: POC Glucose 139 H 08/10/21 18:54: Troponin I High Sens 20 08/10/21 22:01: POC Glucose 219 H 08/11/21 05:40: WBC 14.4 H, RBC 2.86 L, Hgb 7.5 L, Hct 25.0 L, MCV 87.4, MCH 26.2 L, MCHC 30.0 L, RDW Std Deviation 60.2 H, RDW Coeff of Jory 18.9 H, Plt Count 342, MPV 9.6, Immature Gran % (Auto) 2.600 H, Neut % (Auto) 93.4 H, Lymph % (Auto) 2.3 L, [place] % (Auto) 1.6, Eos % (Auto) 0.0, Baso % (Auto) 0.1, Absolute Neuts (auto) 13.4 H, Absolute Lymphs (auto) 0.33 L, Nucleated RBC % 0.3, Anisocytosis 2+ 08/11/21 05:40: Sodium 139, Potassium 4.8, Chloride 106, Carbon Dioxide 27.0, Anion Gap 6, BUN 75 H, Creatinine 2.78 H, Estim Creat Clear Calc 23.45, Est GFR (MDRD) Af Amer 29 L, Est GFR (MDRD) Non-Af 24 L, BUN/Creatinine Ratio 27.0 H, Glucose 190 H, Calcium 8.8, Triglycerides 90, Cholesterol 80, LDL Cholesterol 40, VLDL Cholesterol 18, HDL Cholesterol 22 L, TSH 2.49 08/11/21 08:05: POC Glucose 183 H Micro: Microbiology 08/10/21 18:54 Blood Culture (Wb) - Other Blood Culture - Preliminary 08/10/21 14:25 Urine Catheter - Franco Urine Culture - Preliminary GNR lactose records management specialist 08/10/21 15:29 Blood Culture (Wb) - Other Bacteria Detection (PCR) - Final Staphylococcus aureus 08/10/21 15:29 Blood Culture (Wb) - Other Blood Culture - Preliminary 08/10/21 13:45 Mucosa - Nasopharyngeal Respiratory Panel (PCR) - Final ABG Data ABG results: ABG 08/10/21 14:53 Specimen Type ART Sample Site R Radial pH 7.40 Bicarbonate Actual 26.8 H Total CO2 28 Base Excess 2 O2 Saturation 99 ABG pCO2 43.5 ABG pO2 133 H Garrison Test Positive O2 Delivery Device BiPAP Vent Mode BiLevel Radiography Diagnostic Testing: Radiology Impression Venous Doppler Study 08/10/21 14:19 Interpretation Summary No evidence for acute deep venous thrombosis bilateral lower extremities with patent and compressible bilateral great saphenous veins. Technical limitation of inability to image the right common femoral vein secondary to body habitus. The entire examination was felt to be of fair quality secondary to body habitus. Ordering Physician: Donte Serna Performed By: Saji Koenig RVErasto Lung Scan-VQ NM 08/10/21 15:15 IMPRESSION: Low probability of pulmonary embolism. Findings suggestive of airway disease. Electronically Signed: Saleem Saavedra MD at 10:53 EDT , Chest X-Ray 08/11/21 09:20 IMPRESSION: Cardiomegaly and CHF. Electronically Signed: Saleem Saavedra MD at 10:08 EDT , Physical Exam Narrative Overall, patient is feeling better in regards to shortness of breath and dyspnea. General: Awake, oriented x3. On baseline. Gets intermittent confused. HEENT: Crowded oropharynx. Deep oropharyngeal structures not clearly visible Oral: Oral mucosa are dry. No Gingival or Mucosal Lesions/ Ulcerations Neck: Supple, No JVD, Negative Carotid Bruits Lungs: Air entry severely diminished. On oxygen. Bronchial pattern of breathing. Cardiovascular: Sinus tachycardia, normal S1, Normal S2, No murmurs Abdomen: Bowel Sounds Present, Soft, Non Tender, Non-Distended : Chronic Franco catheter. Dark-colored urine. No renal angle tenderness. No suprapubic tenderness. Extremities: Slight improvement in bilateral pitting edema and lymphedema, Capillary Refill Less than 3 Seconds Skin: Scab over left leg. Bilateral lymphedema and mild seepage Musculoskeletal: Muscle strength, 3/5 at major joints of lower extremities. ROM severely limited. Neurological: Cranial nerves II-XII grossly intact, DTR 2+/4. No focal deficit Psych/Mental Status: Flat affect. Forgetfulness/amnesia, possible dementia Assessment & Plan Assessment/Plan (1) Acute renal failure: QUALIFIERS: Acute renal failure type: unspecified Qualified Code(s): N17.9 - Acute kidney failure, unspecified (2) CKD stage 4 due to type 1 diabetes mellitus: (3) COPD exacerbation: (4) CHF exacerbation: QUALIFIERS: Heart failure type: diastolic Qualified Code(s): I50.33 - Acute on chronic diastolic (congestive) heart failure PLAN: 1. Acute on chronic hypoxic respiratory failure due to COPD exacerbation and CHF exacerbation: Patient is being admitted in PCU directly from [place]. Patient was accepted by my colleague on the PCU floor. ABG, D-dimer and BiPAP ordered stat. DuoNeb stat. 08/11: ABG was reviewed yesterday on 08/10. 7.40/43/133 on BiPAP suggestive of hypoxia. No hypercarbia. D-dimer was elevated. Venous duplex was negative for DVT. Furthermore VQ scan was done which reported low probability of PE. Chest x-ray shows increased bronchovascular markings, congestion suggestive of pulmonary edema. Bacteremia most likely MSSA: During admission in June 2020, SHLOMO because of MSSA bacteremia in June 2019 did not show any vegetation reported normal mitral tricuspid valve. Mild diffuse aortic valve thickening. At that time patient was treated with IV cefazolin. This time prelim blood cultures x2 shows a staph, mec-A not detected most likely MSSA. Discussed with ID and requested consult. You will start on IV cefepime. Ceftriaxone and Zithromax discontinued, pneumonia very low priority. 2. Acute on chronic HFpEF: Patient had last echo in June 2021 shows EF 65%, stage I diastolic dysfunction. Study was technically difficult due to body habitus and valves could not be well visualized. Heart failure core measures including intake and output, fluid restriction less than 1500 mL, daily weight monitoring, kidney and electrolytes monitoring. Serial troponins ordered. On Lasix drip. 08/11: Patient was a started on Lasix drip by my colleague last night. Senior Formulation Scientist consult reviewed. 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 Peak creatinine was 3.6 slowly trending down. Serial troponins negative. ACS ruled out. TSH normal. 3. Possible COPD exacerbation: Patient never had PFT done last discharge was advised to follow-up in pulmonary clinic but patient never made it. Patient has been never a smoker. DuoNeb every 4 hourly. IV Solu-Medrol, incentive willam metry, Pep ordered. Chest x-ray from outside reviewed and reported as low lung volume with bilateral perihilar haziness possible central pulmonary congestion or atypical pneumonia. Left perihilar through lower lobe fibrosis. 4. Acute kidney injury on CKD G4: Recent renal ultrasound unremarkable. Patient recently had renal biopsy in [facility] 7. Patient follows [place] tubing oiler and is consulted. As Xarelto is more renally excreted therefore will change to Eliquis. 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 Peak creatinine was 3.6 trending down. Lasix drip increased to 20 mg/h. Metolazone was added. Monitor intake and output. Previous emesis and Bactrim might be the source for postinfectious glomerulonephritis. 5. Chronic normocytic anemia-patient hemoglobin is 8.1. Patient hemoglobin has been between 7.5-8.2 recently in July 2021. Last 1 in our system 7.6 on 07/20. Continue PPI. Stool positive for occult blood 07/14/21. Monitor CBC 4. Type 2 diabetes [id number] ACH coverage Humalog sliding scale continue home insulin regimen. 5. Recent MSSA bacteremia-patient completed antibiotic IV cefazolin treatment as per ID recommendation completed treatment. 6. Obesity hypoventilation syndrome/probable NILDA: The patient will need formal pulmonary clinic evaluation for PFT and sleep study. Continue BiPAP 7. Debility/failure to thrive, very limited ADL, morbid obesity-PT OT evaluation. 9. History of DVT: Because of high risk of bleeding and severe anemia, GAYE on CKD G4, hematuria on UA, low-dose Eliquis 2.5 mg twice daily. Living will/advanced directive/end of life care: Patient does have living will or advanced directive. Nighttime hospitalist Dr. Waterman also discussed with patient's niece regarding CODE STATUS and changed to DNR CC arrest with no intubation. His power of motion picture equipment supervisor for health is her neiceAlison. After discussion of benefits/risks procedures involved with full code, DNR CC arrest and DNR CC, the patient and daughter opted for DNRCC arrest with no intubation. The patient's niece further said she will talk to him and decide about dialysis if needed in future. Charges/Coding Visit Charges Inpatient E&M: 70909 Subs Hosp L3
[2021-08-11] MEDS: Furosemide 500 MG in Empty Viaflex 50 mL 1 EACH CONT INF (11:35)
--- NOTE | 2021-08-11 12:11 | PCM.CONS.GEN ---
Assessment & Plan Assessment/Plan (1) MSSA bacteremia: PLAN: Bcx per pcr showing MSSA again. Ucx with GNR. Having L knee pain, may need ortho evaluation. Splinter hemorrhages seen on fingers. Will cover with cefepime for now, also on azithro. Will order repeat bcx and TTE. Will follow, thank you HPI Consult Data Date of Consult: 08/11/21 HPI Narrative HPI Narrative: MICHEAL LEÓN, is a 70 M with recent admit for mssa bacteremia, complicated by GAYE while at TCU. Treated with cefazolin, course was cut short when re-admitted for the GAYE, then transferred to [place] for renal biopsy. Since then has been at [facility], no recent abx per med list. Admitted from ED due to hypoxia, dyspnea. Picc has been out. Some L knee pain. H/o L shoulder replacement, no change in chronic mild pain there. Admitted on azithro/ceftriaxone. Full ROS performed and neg except as noted above. [facility] Medical History 2019-nCoV vaccination declined Cellulitis Debility DVT (deep venous thrombosis) Fall HTN (hypertension) Leukocytosis Obesity Home Medications latanoprost 1 drp EACH EYE QHS 06/11/21 [History Last Taken 08/09/21 22:00] ipratropium-albuterol 3 ml INHALATION Q4HWA.RT PRN #0 ml 06/20/21 [Rx Last Taken 08/10/21 06:30] insulin lispro [Humalog KwikPen Insulin] 5 unit SUBCUT TIDAC #0 ml 07/16/21 [Rx Last Taken Unknown] menthol-zinc oxide [Calmoseptine] 1 applic TOPICAL BID #0 g 07/16/21 [Rx Last Taken Unknown] metoprolol tartrate 25 mg PO BID #0 tab 07/16/21 [Rx Last Taken Unknown] pantoprazole [Protonix] 40 mg PO DAILY 07/19/21 [History Last Taken Unknown] tramadol 50 mg PO DAILY 07/19/21 [History Last Taken Unknown] bumetanide [Bumex] 2 mg PO DAILY 08/10/21 [History Last Taken Unknown] levothyroxine [Synthroid] 25 mcg PO DAILY 08/10/21 [History Last Taken Unknown] potassium chloride 40 meq PO BID 08/10/21 [History Last Taken Unknown] Allergy/AdvReac Type Severity Reaction Status Date / Time No Known Allergies Allergy Verified 06/11/21 15:09 Surgical History History of left shoulder replacement Social History household members: none housing: shelter current occupational status: disabled Smoking Status: Never smoker alcohol intake: never substance use type: does not use Physical Exam Const alert and no apparent distress General Appearance: cooperative Exam Limitations: no limitations HEENT normocephalic and head/scalp atraumatic Eyes PERRL and EOMs intact bilaterally Neck supple and No nodes Resp Auscultation: rhonchi Cardio regular rate and regular rhythm GI soft to palpation, non-tender and non-distended Extremity Extremity Narrative: L knee painful to touch General Extremity: edema Skin no rashes or lesions noted Skin Narrative: Splinter hemorrhage on L index finger, R thumb Neuro CN's II-XII intact bilaterally Lab / Micro Data Result Diagrams: 08/11/21 05:40 08/11/21 05:40 Labs: Laboratory Results - last 24 hr 08/10/21 13:25: Phosphorus 4.2, Magnesium 1.7, Troponin I High Sens 20 08/10/21 13:25: D-Dimer Quant (PE/DVT) 15.37 H* 08/10/21 15:29: Troponin I High Sens 25 08/10/21 16:59: POC Glucose 139 H 08/10/21 18:54: Troponin I High Sens 20 08/10/21 22:01: POC Glucose 219 H 08/11/21 05:40: WBC 14.4 H, RBC 2.86 L, Hgb 7.5 L, Hct 25.0 L, MCV 87.4, MCH 26.2 L, MCHC 30.0 L, RDW Std Deviation 60.2 H, RDW Coeff of Jory 18.9 H, Plt Count 342, MPV 9.6, Immature Gran % (Auto) 2.600 H, Neut % (Auto) 93.4 H, Lymph % (Auto) 2.3 L, [place] % (Auto) 1.6, Eos % (Auto) 0.0, Baso % (Auto) 0.1, Absolute Neuts (auto) 13.4 H, Absolute Lymphs (auto) 0.33 L, Nucleated RBC % 0.3, Anisocytosis 2+ 08/11/21 05:40: Sodium 139, Potassium 4.8, Chloride 106, Carbon Dioxide 27.0, Anion Gap 6, BUN 75 H, Creatinine 2.78 H, Estim Creat Clear Calc 23.45, Est GFR (MDRD) Af Amer 29 L, Est GFR (MDRD) Non-Af 24 L, BUN/Creatinine Ratio 27.0 H, Glucose 190 H, Calcium 8.8, Triglycerides 90, Cholesterol 80, LDL Cholesterol 40, VLDL Cholesterol 18, HDL Cholesterol 22 L, TSH 2.49 08/11/21 08:05: POC Glucose 183 H Micro: Microbiology 08/10/21 18:54 Blood Culture (Wb) - Other Blood Culture - Preliminary 08/10/21 14:25 Urine Catheter - Franco Urine Culture - Preliminary GNR lactose call center support representative 08/10/21 15:29 Blood Culture (Wb) - Other Bacteria Detection (PCR) - Final Staphylococcus aureus 08/10/21 15:29 Blood Culture (Wb) - Other Blood Culture - Preliminary 08/10/21 13:45 Mucosa - Nasopharyngeal Respiratory Panel (PCR) - Final ABG Data ABG results: ABG 08/10/21 14:53 Specimen Type ART Sample Site R Radial pH 7.40 Bicarbonate Actual 26.8 H Total CO2 28 Base Excess 2 O2 Saturation 99 ABG pCO2 43.5 ABG pO2 133 H Garrison Test Positive O2 Delivery Device BiPAP Vent Mode BiLevel Radiology Impression Venous Doppler Study 08/10/21 14:19 Interpretation Summary No evidence for acute deep venous thrombosis bilateral lower extremities with patent and compressible bilateral great saphenous veins. Technical limitation of inability to image the right common femoral vein secondary to body habitus. The entire examination was felt to be of fair quality secondary to body habitus. Ordering Physician: Donte Serna Performed By: Saji Koenig, RVT Lung Scan-VQ NM 08/10/21 15:15 IMPRESSION: Low probability of pulmonary embolism. Findings suggestive of airway disease. Electronically Signed: Saleem Saavedra MD at 10:53 EDT , Chest X-Ray 08/11/21 09:20 IMPRESSION: Cardiomegaly and CHF. Electronically Signed: Saleem Saavedra MD at 10:08 EDT ,
[2021-08-11 12:30] LABS: Bedside Glucose 203 mg/dL (74-106)
--- NOTE | 2021-08-11 12:30 | EKG12_ITS ---
Test Reason : Blood Pressure : / mmHG Vent. Rate : 060 BPM Atrial Rate : 094 BPM P-R Int : 000 ms QRS Dur : 136 ms QT Int : 492 ms P-R-T Axes : 056 062 067 degrees QTc Int : 492 ms AV dissociation Right bundle branch block Abnormal ECG When compared with ECG of 11-AUG-2021 12:03, MANUAL COMPARISON REQUIRED, DATA IS UNCONFIRMED Confirmed by ROSELYN VALDEZ, KEIKO ([id number]), editor managing director CARLYLE MADISON ([id number]) on 08/17/2021 8:24:48 AM Referred By: LEO Confirmed By:KEIKO DEMPSEY MD
[2021-08-11] MEDS: metOLazone 5 MG Tablet PO (14:03)
[2021-08-11 17:05] LABS: Bedside Glucose 141 mg/dL (74-106)
[2021-08-11] MEDS: Latanoprost 0.005% 1 Bottle 1 DRP EACH EYE (21:03)
[2021-08-11 21:11] LABS: Bedside Glucose 170 mg/dL (74-106)
[2021-08-12] VITALS (17 sets, daily range): BP systolic 118–144; BP diastolic 61–81; PULSE 64–95; RESP 14–26; TEMP 36.3–37; O2SAT 93–100
[2021-08-12 05:25] LABS: Absolute Lymphocyte Count 0.36 X10^3/uL (0.83-4.51); Absolute Neutrophil Count 14.5 X10^3/uL (2.0-7.7); Basophil# 0.02 X10^3/uL; Basophil% 0.1 % (0-1); Hematocrit 22.9 % (40-54); Lymphocyte # 0.36 X10^3/ul (0.83-4.51); Lymphocyte % 2.2 % (19-41); Mean Corp Hgb Conc 30.6 g/dL (32-36); Mean Corpuscular Hgb 25.8 pg (27.0-32.0); Mean Corpuscular Volume 84.5 fL (80-94); Mean Platelet Vol. 9.9 fl (6.2-12.0); Monocyte# 0.89 X10^3/uL; Monocyte% 5.5 % (0-10); NRBC Flagged by Analyzer 0.4 % (0-5); Neutrophil # 14.53 X10^3/uL (2.7-7.7); Neutrophil % 89.7 % (47-70); POSITIVE COUNT YES; POSITIVE DIFFERENTIAL YES; Platelet Count 316 K/mm3 (150-450); RBC Distribution Width CV 18.9 % (11.6-14.6); RBC Distribution Width SD 58.2 fl (35.1-43.9); Red Blood Count 2.71 M/mm3 (4.6-6.2); White Blood Count 16.2 K/mm3 (4.4-11.0)
[2021-08-12 05:27] LABS: Differential Indicated SCAN CRITERIA MET
[2021-08-12 05:45] LABS: Anisocytosis 2+
[2021-08-12 05:50] LABS: Anion Gap 6 (5-15); BUN 81 mg/dL (7-18); BUN/Creat Ratio 29.7 RATIO (10-20); Calcium,Total 8.6 mg/dL (8.5-10.1); Chloride 106 mmol/L (98-107); Creatinine, Serum 2.73 mg/dL (0.70-1.30); EST Glomerular Filtration Rate 25 mL/min (>60); Est Glom Filt Rate - Afr Amer 30 mL/min (>60); Estimated Creatinine Clearance 23.88 ml/min; Glucose 150 mg/dL (74-106); Potassium 4.1 mmol/L (3.5-5.1); Sodium Level 138 mmol/L (136-145)
[2021-08-12] MEDS: Levothyroxine 25 MCG TABLET PO (06:15)
[2021-08-12 06:25] LABS: Bedside Glucose 148 mg/dL (74-106)
[2021-08-12] MEDS: Ipratropium/Albuterol Sulfate 3 ML AMPUL.NEB INHALATION ×4 (07:20→18:35)
[2021-08-12] MEDS: Insulin Lispro 100 UNIT/ML INSULN.PEN SC ×6 (08:06→21:33)
[2021-08-12] MEDS: Pantoprazole Sodium 40 MG Tablet PO (09:10)
[2021-08-12] MEDS: Menthol/Lanolin/Calamine/Znox 113 GM Tube 1 APPLIC TOPICAL ×2 (09:10→21:29)
[2021-08-12] MEDS: metOLazone 5 MG Tablet PO (09:10)
[2021-08-12] MEDS: Metoprolol Tartrate 25 MG Tablet PO ×2 (09:10→21:35)
[2021-08-12] MEDS: Azithromycin 250 MG Tablet 500 MG PO (09:11)
[2021-08-12] MEDS: guaiFENesin 1,200 MG Tablet 1200 MG PO ×2 (09:11→21:35)
[2021-08-12] MEDS: 0.9% Saline Lock 10 ML Syringe IV ×2 (09:50→10:22)
--- NOTE | 2021-08-12 09:59 | PCM.PN.ID ---
Physical Exam Narrative Feeling better, still moderate amount pain in L knee, some in L shoulder. No fever. Const alert and no apparent distress General Appearance: cooperative Resp normal air movement and clear to auscultation bilaterally Cardio regular rate and regular rhythm GI soft to palpation, non-tender and non-distended Extremity Extremity Narrative: L knee moderate pain, mild in L shoulder Skin no rashes or lesions noted ID ID: Route of nutrition/ use of supplements: [] Nutritional Intake: [] IV Site: [] Franco Catheter: [] Assessment & Plan Assessment/Plan (1) MSSA bacteremia: PLAN: Bcx per pcr showing MSSA again. Ucx with GNR. Having L knee pain and L shoulder pain, recommend ortho evaluation for suspected L knee septic arthritis and possible L shoulder PJI. Splinter hemorrhages seen on fingers. Will cover with cefepime for now, also on azithro. Will order repeat bcx and pending SHLOMO. Will follow, d/w Dr. Serna
--- NOTE | 2021-08-12 10:48 | RAD_ITS ---
STUDY: X-RAY - LEFT KNEE REASON FOR EXAM: Male, 70 years old. left knee pain TECHNIQUE: 2 view(s) of the knee. COMPARISON: None. FINDINGS: There is severe narrowing of all 3 compartments of the knee joint with a large joint effusion and multiple loose bodies. Remodeling of the tibial plateau due to [id number] contact, as well as mild posterior subluxation of the tibia in relation to the femoral condyles likely due to ligamentous tear is or disease. No visualized acute fracture. Normal proximal tibiofibular articulation. Moderate soft tissue swelling is seen around the knee joint. RAD/Knee 1 or 2 Views IMPRESSION: Severe DJD of the knee joint Electronically Signed: Luis Denny MD at 16:43 EDT ,
--- NOTE | 2021-08-12 10:48 | RAD_ITS ---
STUDY: X-RAY - LEFT SHOULDER REASON FOR EXAM: Male, 70 years old. shoulder pain s/p replacement TECHNIQUE: 2 view(s) of the shoulder. COMPARISON: Chest x-ray dated JULY 19, 2021 FINDINGS: Stable left shoulder prosthesis. No hardware complications are seen. No abnormal lucency in the bone hardware interface. No acute fracture. Normal acromioclavicular joint. Normal acromion. Normal visualized proximal humerus. The soft tissue structures are unremarkable. Normal visualized pulmonary apex. RAD/Shoulder min 2 Views IMPRESSION: No acute or significant process Electronically Signed: Luis Denny MD at 16:44 EDT ,
--- NOTE | 2021-08-12 10:49 | PCM.PN.HOSP ---
Subjective Subjective Follow-up for MSSA bacteremia, CHF exacerbation, COPD, respiratory failure and multiple issues Patient is still has short of breath. MSSA bacteremia Objective Data Objective Data Vital Signs: Vital Signs Temp Pulse Resp BP Pulse Ox 97.4 F L 76 20 H 133/63 H 96 08/12/21 09:00 08/12/21 09:10 08/12/21 09:00 08/12/21 09:10 08/12/21 09:00 Oxygen Flow Rate (L/min) 3 Oxygen Delivery Method Nasal Cannula Weight: 362 lb 7.039 oz Body Mass Index (BMI) 56.7 Intake & Output: Intake and Output for Last 24 Hours 08/10/21 08/11/21 08/12/21 23:59 23:59 23:59 Intake Total 252 / 252 944.12 / 1104.12 460 / 460 Output Total 550 / 550 1100 / 1900 1650 / 1650 Balance -298 / -298 -155.88 / -795.88 -1190 / -1190 Lab / Micro Data Result Diagrams: 08/12/21 05:06 08/12/21 05:06 Labs: Laboratory Results - last 24 hr 08/11/21 12:22: POC Glucose 203 H 08/11/21 17:00: POC Glucose 141 H 08/11/21 20:55: POC Glucose 170 H 08/12/21 05:06: WBC 16.2 H, RBC 2.71 L, Hgb 7.0 L, Hct 22.9 L, MCV 84.5, MCH 25.8 L, MCHC 30.6 L, RDW Std Deviation 58.2 H, RDW Coeff of Jory 18.9 H, Plt Count 316, MPV 9.9, Immature Gran % (Auto) 2.500 H, Neut % (Auto) 89.7 H, Lymph % (Auto) 2.2 L, [place] % (Auto) 5.5, Eos % (Auto) 0.0, Baso % (Auto) 0.1, Absolute Neuts (auto) 14.5 H, Absolute Lymphs (auto) 0.36 L, Nucleated RBC % 0.4, Anisocytosis 2+ 08/12/21 05:06: Sodium 138, Potassium 4.1, Chloride 106, Carbon Dioxide 26.0, Anion Gap 6, BUN 81 H, Creatinine 2.73 H, Estim Creat Clear Calc 23.88, Est GFR (MDRD) Af Amer 30 L, Est GFR (MDRD) Non-Af 25 L, BUN/Creatinine Ratio 29.7 H, Glucose 150 H, Calcium 8.6 08/12/21 06:19: POC Glucose 148 H Micro: Microbiology 08/12/21 10:00 Nasal Secretion SARS-CoV-2 Antigen (Rapid) - Final 08/11/21 12:15 Blood Culture (Wb) - Right Hand Blood Culture - Preliminary 08/10/21 18:54 Blood Culture (Wb) - Other Blood Culture - Preliminary Staphylococcus aureus 08/10/21 15:29 Blood Culture (Wb) - Other Bacteria Detection (PCR) - Final Staphylococcus aureus 08/10/21 15:29 Blood Culture (Wb) - Other Blood Culture - Preliminary 08/10/21 14:25 Urine Catheter - Franco Urine Culture - Preliminary Escherichia coli Staphylococcus aureus 08/10/21 13:45 Mucosa - Nasopharyngeal Respiratory Panel (PCR) - Final Radiography Diagnostic Testing: Radiology Impression Lung Scan-VQ NM 08/10/21 15:15 IMPRESSION: Low probability of pulmonary embolism. Findings suggestive of airway disease. Electronically Signed: Saleem Saavedra MD at 10:53 EDT , Physical Exam Narrative The breathing status is same, still labored. Generalized edema of lower and upper extremities, and abdomen. Anasarca Physical exam General: Awake, oriented x3. On baseline. Gets intermittent confused. HEENT: Crowded oropharynx. Deep oropharyngeal structures not clearly visible Oral: Oral mucosa are dry. No Gingival or Mucosal Lesions/ Ulcerations Neck: Supple, No JVD, Negative Carotid Bruits Lungs: Air entry severely diminished. On oxygen. Bronchial pattern of breathing. Cardiovascular: Sinus rhythm, normal S1, Normal S2, No murmurs Abdomen: Bowel Sounds Present, Soft, Non Tender, Non-Distended : Chronic Franco catheter. Urine yellowish. No renal angle tenderness. No suprapubic tenderness. Extremities: Slight improvement in bilateral pitting edema and lymphedema, Capillary Refill Less than 3 Seconds Skin: Scab over left leg. Bilateral lymphedema and mild seepage Musculoskeletal: Mild tenderness over left knee. Left shoulder replacement surgical scar. Range of motion at all major joints, hips and knees, shoulders are very limited. Muscle strength, 3/5 at major joints of lower extremities. Neurological: Cranial nerves II-XII grossly intact, DTR 2+/4. No focal deficit Psych/Mental Status: Flat affect. Forgetfulness/amnesia, possible dementia Assessment & Plan Assessment/Plan (1) Acute renal failure: QUALIFIERS: Acute renal failure type: unspecified Qualified Code(s): N17.9 - Acute kidney failure, unspecified (2) CKD stage 4 due to type 1 diabetes mellitus: (3) COPD exacerbation: (4) CHF exacerbation: QUALIFIERS: Heart failure type: diastolic Qualified Code(s): I50.33 - Acute on chronic diastolic (congestive) heart failure PLAN: 1. Acute on chronic hypoxic respiratory failure due to COPD exacerbation and CHF exacerbation: Patient is being admitted in PCU directly from [facility]. Patient was accepted by my colleague on the PCU floor. ABG, D-dimer and BiPAP ordered stat. DuoNeb stat. 08/11: ABG was reviewed yesterday on 08/10. 7.40/43/133 on BiPAP suggestive of hypoxia. No hypercarbia. D-dimer was elevated. Venous duplex was negative for DVT. Furthermore VQ scan was done which reported low probability of PE. Chest x-ray shows increased bronchovascular markings, congestion suggestive of pulmonary edema. 08/12: Patient remains intermittently on BiPAP and nasal cannula. Currently on 3 L of oxygen. Labored breathing. Bacteremia most likely MSSA: During admission in June 2020, SHLOMO because of MSSA bacteremia in June 2019 did not show any vegetation reported normal mitral tricuspid valve. Mild diffuse aortic valve thickening. At that time patient was treated with IV cefazolin. This time prelim blood cultures x2 shows a staph, mec-A not detected most likely MSSA. Discussed with ID and requested consult. You will start on IV cefepime. Patient completed 3 doses of Zithromax. ID recommended SHLOMO which is ordered. Patient also had left pain and left shoulder replacement in the past therefore x-rays of left shoulder and left knee ordered. No official report pending. I individually reviewed the x-rays and does not seem to have acute abnormality on my individual review. Reviewed blood culture from 08/11 shows gram-positive cocci. 08/12: Discussed with ID. Agreed with SHLOMO tomorrow AM. There is tenderness over left knee. Patient had left shoulder replacement and ROM is very restricted/limited. X-ray of 2. Acute on chronic HFpEF: Patient had last echo in June 2021 shows EF 65%, stage I diastolic dysfunction. Study was technically difficult due to body habitus and valves could not be well visualized. Heart failure core measures including intake and output, fluid restriction less than 1500 mL, daily weight monitoring, kidney and electrolytes monitoring. Serial troponins ordered. On Lasix drip. 08/11: Patient was a started on Lasix drip by my colleague last night. Consumer Affairs Director consult reviewed. 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 Peak creatinine was 3.6 slowly trending down. Serial troponins negative. ACS ruled out. TSH normal. 3. Possible COPD exacerbation: Patient never had PFT done last discharge was advised to follow-up in pulmonary clinic but patient never made it. Patient has been never a smoker. DuoNeb every 4 hourly. IV Solu-Medrol, incentive spirometry, Pep ordered. Chest x-ray from outside reviewed and reported as low lung volume with bilateral perihilar haziness possible central pulmonary congestion or atypical pneumonia. Left perihilar through lower lobe fibrosis. 4. Acute kidney injury on CKD G4: Recent renal ultrasound unremarkable. Patient recently had renal biopsy in [place] [id number]. 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 As Xarelto is more renally excreted therefore will change to Eliquis. 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 Peak creatinine was 3.6 trending down. Lasix drip increased to 20 mg/h. Metolazone was added. Monitor intake and output. Previous emesis and Bactrim might be the source for postinfectious glomerulonephritis. 5. Chronic normocytic anemia-patient hemoglobin is 8.1. Patient hemoglobin has been between 7.5-8.2 recently in July 2021. Last 1 in our system 7.6 on 07/20. Continue PPI. Stool positive for occult blood 07/14/21. Monitor CBC 08/12: Troponin globin from 7.5-7.0. Low-dose Eliquis 2.5 mg twice daily discontinued. Bilateral SCDs. Stool for occult blood ordered. Monitor H&H in the evening. Monitor CBC daily. 4. Type 2 diabetes [id number]-[id number] ACH coverage Humalog sliding scale continue home insulin regimen. 5. Recent MSSA bacteremia-patient completed antibiotic IV cefazolin treatment as per ID recommendation completed treatment. 6. Obesity hypoventilation syndrome/probable NILDA: The patient will need formal pulmonary clinic evaluation for PFT and sleep study. Continue BiPAP 7. Debility/failure to thrive, very limited ADL, morbid obesity-PT OT evaluation. 9. History of DVT: Because of high risk of bleeding and severe anemia, GAYE on CKD G4, hematuria on UA, low-dose Eliquis 2.5 mg twice daily. DNR CCA, with no interval papers signed Living will/advanced directive/end of life care: Patient does have living will or advanced directive. Nighttime hospitalist Dr. Waterman also discussed with patient's niece regarding CODE STATUS and changed to DNR CC arrest with no intubation. His power of operator bearer systems for health is her Alison galvez. After discussion of benefits/risks procedures involved with full code, DNR CC arrest and DNR CC, the patient and daughter opted for DNRCC arrest with no intubation. The patient's niece further said she will talk to him and decide about dialysis if needed in future. Charges/Coding Visit Charges Inpatient E&M: [id number] [facility] L3
[2021-08-12 11:25] LABS: Bedside Glucose 160 mg/dL (74-106)
[2021-08-12] MEDS: Furosemide 500 MG in Empty Viaflex 50 mL 1 EACH CONT INF (12:11)
--- NOTE | 2021-08-12 12:51 | CASEMGMT ---
MIMI faxed updates to [place] [facility] [place]. MIMI to continue to follow. MIMI also e-mailed Joleen at [place] verifying that patient is okay to return when ready. Leslie Caldera DETENTION ATTENDANT LIANA
--- NOTE | 2021-08-12 13:04 | PN.RENAL_ITS ---
Subjective Subjective No new complaints. He is now growing MSSA in blood. Urine culture shows E. coli. Breathing still looks labored. Creatinine is about the same at 2.7. Objective Data Objective Data Vital Signs: Vital Signs Temp Pulse Resp BP Pulse Ox 97.4 F L 95 24 H 133/63 H 95 08/12/21 09:00 08/12/21 11:25 08/12/21 11:25 08/12/21 09:10 08/12/21 12:21 Oxygen Flow Rate (L/min) 3 Oxygen Delivery Method Nasal Cannula Weight: 164.4 kg Body Mass Index (BMI) 56.7 Intake & Output: Intake and Output for Last 24 Hours 08/10/21 08/11/21 08/12/21 23:59 23:59 23:59 Intake Total 252 / 252 944.12 / 1104.12 859.2 / 859.2 Output Total 550 / 550 1100 / 1900 2450 / 2450 Balance -298 / -298 -155.88 / -795.88 -1590.8 / -1590.8 Lab / Micro Data Result Diagrams: 08/12/21 05:06 08/12/21 05:06 Labs: Laboratory Results - last 24 hr 08/11/21 17:00: POC Glucose 141 H 08/11/21 20:55: POC Glucose 170 H 08/12/21 05:06: WBC 16.2 H, RBC 2.71 L, Hgb 7.0 L, Hct 22.9 L, MCV 84.5, MCH 25.8 L, MCHC 30.6 L, RDW Std Deviation 58.2 H, RDW Coeff of Jory 18.9 H, Plt Count 316, MPV 9.9, Immature Gran % (Auto) 2.500 H, Neut % (Auto) 89.7 H, Lymph % (Auto) 2.2 L, Carbon % (Auto) 5.5, Eos % (Auto) 0.0, Baso % (Auto) 0.1, Absolute Neuts (auto) 14.5 H, Absolute Lymphs (auto) 0.36 L, Nucleated RBC % 0.4, Anisocytosis 2+ 08/12/21 05:06: Sodium 138, Potassium 4.1, Chloride 106, Carbon Dioxide 26.0, Anion Gap 6, BUN 81 H, Creatinine 2.73 H, Estim Creat Clear Calc 23.88, Est GFR (MDRD) Af Amer 30 L, Est GFR (MDRD) Non-Af 25 L, BUN/Creatinine Ratio 29.7 H, Glucose 150 H, Calcium 8.6 08/12/21 06:19: POC Glucose 148 H 08/12/21 11:14: POC Glucose 160 H Micro: Microbiology 08/12/21 10:00 Nasal Secretion SARS-CoV-2 Antigen (Rapid) - Final 08/11/21 12:15 Blood Culture (Wb) - Right Hand Blood Culture - Preliminary 08/10/21 18:54 Blood Culture (Wb) - Other Blood Culture - Preliminary Staphylococcus aureus 08/10/21 15:29 Blood Culture (Wb) - Other Bacteria Detection (PCR) - Final Staphylococcus aureus 08/10/21 15:29 Blood Culture (Wb) - Other Blood Culture - Preliminary 08/10/21 14:25 Urine Catheter - Thibodeaux Urine Culture - Preliminary Escherichia coli Staphylococcus aureus 08/10/21 13:45 Mucosa - Nasopharyngeal Respiratory Panel (PCR) - Final Physical Exam Narrative Alert awake oriented x 3 no obvious distress no pallor no icterus no JVD s1s2 no murmurs lungs clear abdomen soft no organomegaly ++ edema no cyanosis thibodeaux + Assessment & Plan Assessment/Plan (1) Anasarca: (2) Acute renal failure: QUALIFIERS: Acute renal failure type: unspecified Qualified Code(s): N17.9 - Acute kidney failure, unspecified PLAN: 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 Peak creatinine was 3.6. Slowly trending down. He is still bacteremic, it is possible that now the nephritis is still ongoing. Clinically volume overloaded. This could be part of nephritis syndrome. Started on IV Lasix drip. Last echocardiogram with grade 1 diastolic dysfunction. Maintain Thibodeaux catheter for now. MSSA bacteremia. Started back on antibiotics by ID service. WBC is increasing. (3) Edema:
[2021-08-12 16:41] LABS: Bedside Glucose 158 mg/dL (74-106)
[2021-08-12] MEDS: oxyCODONE 5 MG Tablet PO (17:21)
--- NOTE | 2021-08-12 18:23 | NURSING ---
Pt moved over into Pa bed for comfort with air alternating mattress. Pt inc of BM that was loose. Pt cleaned up, ja care provided, and new/clean/dry mepilex in place. Pt sitting up in bed with SHELLI wraps in place and legs elevated on pillows.
--- NOTE | 2021-08-12 18:39 | NURSING ---
Reviewed charting with brittani El RN
[2021-08-12 21:15] LABS: Hematocrit 25.2 % (40-54); Hemoglobin 7.6 g/dL (13.0-16.5)
--- NOTE | 2021-08-12 21:24 | CONS.ORTHO ---
HPI Consult Data Date of Consult: 08/12/21 HPI Narrative HPI Narrative: MICHEAL LEÓN, is a 70 M who presented to [facility] as a direct admission from [facility] ED for shortness of breath and hypoxia. Patient was found to have a pulse oximetry of 49% on room air. Patient has multiple comorbidities and multiple admissions at [facility] in TCU. Patient was treated for bacteremia with MSSA. Urine culture was positive for gram-negative rods. Patient had left knee pain and some left shoulder pain following antibiotic treatment. I was asked to evaluate the patient due to the joint pain and concern for septic joints. At time of my examination, patient reported left shoulder and left knee pain. He states he has had decades of left knee pain. He states his shoulder feels okay but states it occasionally hurts. He had a left anatomic shoulder arthroplasty performed 10 years ago in [place]. He states that he has done fairly well with the left shoulder. He states both of these joints hurt slightly more recently than in the past. He denies fevers or chills at this time. Denies nausea or vomiting, chest pain or shortness of breath. [facility] Medical History 2019-nCoV vaccination declined Cellulitis Debility DVT (deep venous thrombosis) Fall HTN (hypertension) Leukocytosis Obesity Home Medications latanoprost 1 drp EACH EYE QHS 06/11/21 [History Last Taken 08/09/21 22:00] ipratropium-albuterol 3 ml INHALATION Q4HWA.RT PRN #0 ml 06/20/21 [Rx Last Taken 08/10/21 06:30] insulin lispro [Humalog KwikPen Insulin] 5 unit SUBCUT TIDAC #0 ml 07/16/21 [Rx Last Taken Unknown] menthol-zinc oxide [Calmoseptine] 1 applic TOPICAL BID #0 g 07/16/21 [Rx Last Taken Unknown] metoprolol tartrate 25 mg PO BID #0 tab 07/16/21 [Rx Last Taken Unknown] pantoprazole [Protonix] 40 mg PO DAILY 07/19/21 [History Last Taken Unknown] tramadol 50 mg PO DAILY 07/19/21 [History Last Taken Unknown] bumetanide [Bumex] 2 mg PO DAILY 08/10/21 [History Last Taken Unknown] levothyroxine [Synthroid] 25 mcg PO DAILY 08/10/21 [History Last Taken Unknown] potassium chloride 40 meq PO BID 08/10/21 [History Last Taken Unknown] Allergy/AdvReac Type Severity Reaction Status Date / Time No Known Allergies Allergy Verified 06/11/21 15:09 Surgical History History of left shoulder replacement Social History household members: none housing: [facility] current occupational status: disabled Smoking Status: Never smoker alcohol intake: never substance use type: does not use ROS ROS Narrative 12 point review of systems obtained, negative less otherwise noted in HPI. Vital Signs Vital Signs Vital Signs: 08/11/21 22:58 08/11/21 23:20 08/12/21 01:47 Temperature Temperature Source Pulse Rate 85 Pulse Strength Respiratory Rate 26 H 24 H Respiratory Effort Respiratory Depth Respiratory Pattern Blood Pressure Blood Pressure Mean Blood Pressure Source Blood Pressure Position Blood Pressure Location Pulse Ox 96 94 Oxygen Delivery Method Oxygen Flow Rate (L/min) Fraction of Inspired Oxygen (FIO2) 25 25 08/12/21 03:00 08/12/21 07:00 08/12/21 07:20 Temperature 98.6 F Temperature Source Temporal Pulse Rate 64 74 79 Pulse Strength Respiratory Rate 20 H 18 Respiratory Effort Respiratory Depth Respiratory Pattern Blood Pressure 118/61 Blood Pressure Mean 80 Blood Pressure Source Monitor Blood Pressure Position Semi-Fowlers Blood Pressure Location Left Forearm Pulse Ox 93 100 Oxygen Delivery Method Nasal Cannula Nasal Cannula Oxygen Flow Rate (L/min) 3 3 Fraction of Inspired Oxygen (FIO2) 08/12/21 08:39 08/12/21 08:43 08/12/21 09:00 Temperature 97.4 F L Temperature Source Temporal Pulse Rate 76 Pulse Strength Normal (2+) Respiratory Rate 20 H Respiratory Effort Normal Non-Labored Respiratory Depth Normal Respiratory Pattern Normal Blood Pressure 133/63 H Blood Pressure Mean 86 Blood Pressure Source Monitor Blood Pressure Position Sitting Blood Pressure Location Left Forearm Pulse Ox 96 Oxygen Delivery Method Nasal Cannula Nasal Cannula Oxygen Flow Rate (L/min) 3 3 Fraction of Inspired Oxygen (FIO2) 08/12/21 09:10 08/12/21 11:25 08/12/21 12:21 Temperature Temperature Source Pulse Rate 76 95 Pulse Strength Respiratory Rate 24 H Respiratory Effort Respiratory Depth Respiratory Pattern Tachypnea Blood Pressure 133/63 H Blood Pressure Mean Blood Pressure Source Blood Pressure Position Blood Pressure Location Pulse Ox 95 Oxygen Delivery Method Oxygen Flow Rate (L/min) 3 Fraction of Inspired Oxygen (FIO2) 08/12/21 14:32 08/12/21 14:59 08/12/21 15:00 Temperature 97.4 F L Temperature Source Temporal Pulse Rate 84 85 Pulse Strength Respiratory Rate 20 H Respiratory Effort Normal Respiratory Depth Normal Respiratory Pattern Normal Blood Pressure 144/81 H Blood Pressure Mean 102 Blood Pressure Source Monitor Blood Pressure Position Supine Blood Pressure Location Left Forearm Pulse Ox 100 Oxygen Delivery Method Nasal Cannula Nasal Cannula Oxygen Flow Rate (L/min) 3 3 Fraction of Inspired Oxygen (FIO2) 08/12/21 15:13 08/12/21 15:47 08/12/21 18:35 Temperature Temperature Source Pulse Rate 83 85 Pulse Strength Respiratory Rate 26 H 24 H Respiratory Effort Respiratory Depth Respiratory Pattern Tachypnea Blood Pressure Blood Pressure Mean Blood Pressure Source Blood Pressure Position Blood Pressure Location Pulse Ox 100 Oxygen Delivery Method Oxygen Flow Rate (L/min) 3 Fraction of Inspired Oxygen (FIO2) 08/12/21 19:00 08/12/21 19:57 Temperature Temperature Source Pulse Rate 79 Pulse Strength Respiratory Rate Respiratory Effort Non-Labored Respiratory Depth Shallow Respiratory Pattern Tachypnea Blood Pressure Blood Pressure Mean Blood Pressure Source Blood Pressure Position Blood Pressure Location Pulse Ox Oxygen Delivery Method Nasal Cannula Oxygen Flow Rate (L/min) 3 Fraction of Inspired Oxygen (FIO2) Weight Weight: 362 lb 7.039 oz Body Mass Index (BMI) 56.7 Physical Exam Narrative General -A&Ox3, NAD, appears stated age. Vital signs stable, afebrile. Respiratory -normal work of breathing, no intercostal retractions. CV -pulses regular, brisk capillary refill ?4 limbs. Abdomen-soft, nontender, nondistended. No guarding, rigidity, rebound tenderness. Left shoulder-deltopectoral incision is noted, pristine and well-healed. There is no erythema no warmth. Internal extra rotation of the shoulder does not elicit short arc range of motion pain. Neurovascular intact throughout the left upper extremity. Radial pulses 2+. No palpable fluctuance throughout the left shoulder. Left knee-DF, PF, EHL intact left lower extremity. The left knee is slightly warm to touch. Short arc range of motion pain is noted. Unable to palpate significant effusion, however bipedal edema is noted and Giuseppe wraps are in place. Range of motion testing was limited due to pain. Lab / Micro Data Result Diagrams: 08/12/21 20:35 08/12/21 05:06 Labs: Laboratory Results - last 24 hr 08/12/21 05:06: WBC 16.2 H, RBC 2.71 L, Hgb 7.0 L, Hct 22.9 L, MCV 84.5, MCH 25.8 L, MCHC 30.6 L, RDW Std Deviation 58.2 H, RDW Coeff of Jory 18.9 H, Plt Count 316, MPV 9.9, Immature Gran % (Auto) 2.500 H, Neut % (Auto) 89.7 H, Lymph % (Auto) 2.2 L, [place] % (Auto) 5.5, Eos % (Auto) 0.0, Baso % (Auto) 0.1, Absolute Neuts (auto) 14.5 H, Absolute Lymphs (auto) 0.36 L, Nucleated RBC % 0.4, Anisocytosis 2+ 08/12/21 05:06: Sodium 138, Potassium 4.1, Chloride 106, Carbon Dioxide 26.0, Anion Gap 6, BUN 81 H, Creatinine 2.73 H, Estim Creat Clear Calc 23.88, Est GFR (MDRD) Af Amer 30 L, Est GFR (MDRD) Non-Af 25 L, BUN/Creatinine Ratio 29.7 H, Glucose 150 H, Calcium 8.6 08/12/21 06:19: POC Glucose 148 H 08/12/21 11:14: POC Glucose 160 H 08/12/21 16:27: POC Glucose 158 H 08/12/21 20:35: Hgb 7.6 L, Hct 25.2 L Micro: Microbiology 08/12/21 18:02 Stool Stool Occult Blood (DAMIAN) - Final Occult Blood Positive 08/12/21 10:00 Nasal Secretion SARS-CoV-2 Antigen (Rapid) - Final 08/11/21 12:15 Blood Culture (Wb) - Right Hand Blood Culture - Preliminary 08/10/21 18:54 Blood Culture (Wb) - Other Blood Culture - Preliminary Staphylococcus aureus 08/10/21 15:29 Blood Culture (Wb) - Other Bacteria Detection (PCR) - Final Staphylococcus aureus 08/10/21 15:29 Blood Culture (Wb) - Other Blood Culture - Preliminary 08/10/21 14:25 Urine Catheter - Franco Urine Culture - Preliminary Escherichia coli Staphylococcus aureus Radiology Impression Knee X-Ray 08/12/21 10:48 IMPRESSION: Severe DJD of the knee joint Electronically Signed: Luis Denny MD at 16:43 EDT , Shoulder X-Ray 08/12/21 10:48 IMPRESSION: No acute or significant process Electronically Signed: Luis Denny MD at 16:44 EDT , Assessment & Plan Assessment/Plan (1) Left shoulder pain: PLAN: Certainly, given the clinical scenario PJI is concerning the left shoulder. I expressed this to the patient. I recommended an arthrocentesis of the left shoulder. I explained the risk of delaying care including but not limited to persistent infection, need for advanced surgeries, limited function of the left shoulder, as well as loss of life or limb. At this time, patient adamantly declined a needle arthrocentesis of the left shoulder or the left knee. I recommend the patient reconsider and I will reevaluate the patient tomorrow for further discussion. Patient appears to have capacity to make such decisions. (2) Osteoarthritis of left knee: PLAN: As above. Patient has severe grade 4 osteoarthritis of his left knee. Superimposed septic joint is considered. Arthrocentesis recommended but adamantly declined as above. Again, I will reevaluate the patient tomorrow and again discuss arthrocentesis.
[2021-08-12] MEDS: Latanoprost 0.005% 1 Bottle 1 DRP EACH EYE (21:35)
[2021-08-13] VITALS (20 sets, daily range): BP systolic 108–141; BP diastolic 64–78; PULSE 47–72; RESP 14–35; TEMP 36.2–37.1; O2SAT 93–100
[2021-08-13 00:45] LABS: Bedside Glucose 166 mg/dL (74-106)
--- NOTE | 2021-08-13 05:53 | EKG12_ITS ---
Test Reason : DYSRHYTHMIA Blood Pressure : / mmHG Vent. Rate : 060 BPM Atrial Rate : 075 BPM P-R Int : 000 ms QRS Dur : 134 ms QT Int : 466 ms P-R-T Axes : 000 059 013 degrees QTc Int : 466 ms AV Dissociation Non-specific intra-ventricular conduction block Abnormal ECG When compared with ECG of 10-AUG-2021 15:45, MANUAL COMPARISON REQUIRED, DATA IS UNCONFIRMED Confirmed by ROSELYN VALDEZ, KEIKO ([id number]), scientific publications editor CARLYLE MADISON ([id number]) on 08/16/2021 1:56:38 PM Referred By: ALYSON Confirmed By:KEIKO DEMPSEY MD
[2021-08-13 06:11] LABS: Bedside Glucose 112 mg/dL (74-106)
[2021-08-13 06:31] LABS: Absolute Lymphocyte Count 0.54 X10^3/uL (0.83-4.51); Absolute Neutrophil Count 11.6 X10^3/uL (2.0-7.7); Basophil# 0.04 X10^3/uL; Basophil% 0.3 % (0-1); Eosinophil# 0.04 X10^3/uL; Eosinophils% 0.3 % (0-5); Hematocrit 27.4 % (40-54); Hemoglobin 8.2 g/dL (13.0-16.5); Lymphocyte # 0.54 X10^3/ul (0.83-4.51); Lymphocyte % 3.9 % (19-41); Mean Corp Hgb Conc 29.9 g/dL (32-36); Mean Corpuscular Hgb 25.9 pg (27.0-32.0); Mean Corpuscular Volume 86.4 fL (80-94); Mean Platelet Vol. 10.3 fl (6.2-12.0); Monocyte# 1.04 X10^3/uL; Monocyte% 7.5 % (0-10); NRBC Flagged by Analyzer 0.4 % (0-5); Neutrophil # 11.57 X10^3/uL (2.7-7.7); Neutrophil % 83.1 % (47-70); POSITIVE COUNT YES; POSITIVE DIFFERENTIAL YES; Platelet Count 172 K/mm3 (150-450); RBC Distribution Width CV 19.1 % (11.6-14.6); RBC Distribution Width SD 59.7 fl (35.1-43.9); Red Blood Count 3.17 M/mm3 (4.6-6.2); White Blood Count 13.9 K/mm3 (4.4-11.0)
[2021-08-13 06:36] LABS: Differential Indicated SCAN CRITERIA MET
--- NOTE | 2021-08-13 06:37 | PCM.HOSP.N ---
Hospitalist Note Run of VT, prolonged but asymptomatic. Given ongoing diuresis with lasix drip will obtain AM electrolyte panel and also request mag.
[2021-08-13 06:39] LABS: Anion Gap 8 (5-15); BUN 90 mg/dL (7-18); Chloride 103 mmol/L (98-107); Creatinine, Serum 2.37 mg/dL (0.70-1.30); EST Glomerular Filtration Rate 29 mL/min (>60); Est Glom Filt Rate - Afr Amer 35 mL/min (>60); Glucose 120 mg/dL (74-106); Potassium 3.9 mmol/L (3.5-5.1); Sodium Level 138 mmol/L (136-145)
[2021-08-13 06:51] LABS: Magnesium 1.5 mg/dL (1.6-2.6)
[2021-08-13 06:52] LABS: Anisocytosis 2+; Platelet Morphology CLUMPED
[2021-08-13 07:16] LABS: Troponin-I HS 17 pg/mL (3.0-78.0)
[2021-08-13] MEDS: Ipratropium/Albuterol Sulfate 3 ML AMPUL.NEB INHALATION ×4 (07:29→20:10)
--- NOTE | 2021-08-13 07:53 | PCM.CONS.GEN ---
Assessment & Plan Assessment/Plan (1) Anemia: PLAN: Patient is very high risk for any endoscopic procedure at this time. This is due to morbid obesity, COPD, NILDA, CKD stage IV and anasarca. He does not have much reserve and may have to be intubated if he undergoes an upper endoscopy. I would watch his hemoglobin and if it still continues to drop then we will pursue an upper endoscopy. I do not think he is stable enough for a colonoscopy because he would have to lay flat for that procedure. Recommend PPI therapy IV every 12 hours with watching his renal function carefully. I will repeat his hemoglobin and if it continues to drop we will have to pursue an upper endoscopy. He is not a candidate for octreotide at this time due to history of renal failure as it can worsen renal failure. He is off of Eliquis at this time and may need a temporary IVC filter to prevent his chances of developing PE due to his history of recent surgery, morbid obesity and immobility to walk. HPI Consult Data Date of Consult: 08/13/21 HPI Narrative HPI Narrative: MICHEAL LEÓN, is a 70 M who was recent admit for mssa bacteremia, complicated by GAYE while at TCU. He was re-admitted for the GAYE, then transferred to [facility] for renal biopsy. 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 He also has a history of morbid obesity, COPD, NILDA, do hypertension, DVT in bilateral lower extremity cellulitis. He recently also had a orthopedic surgery with a left shoulder replacement. On this admission he was admitted from ED due to hypoxia, dyspnea. I was called to see him due to the fact that he was started on Eliquis due to history of DVT to prevent PE and his hemoglobin has been dropping. Since the beginning of the year his hemoglobin has been slowly decreasing. His stools were heme positive. [facility] Medical History 2019-nCoV vaccination declined Cellulitis Debility DVT (deep venous thrombosis) Fall HTN (hypertension) Leukocytosis Obesity Home Medications latanoprost 1 drp EACH EYE QHS 06/11/21 [History Last Taken 08/09/21 22:00] ipratropium-albuterol 3 ml INHALATION Q4HWA.RT PRN #0 ml 06/20/21 [Rx Last Taken 08/10/21 06:30] insulin lispro [Humalog KwikPen Insulin] 5 unit SUBCUT TIDAC #0 ml 07/16/21 [Rx Last Taken Unknown] menthol-zinc oxide [Calmoseptine] 1 applic TOPICAL BID #0 g 07/16/21 [Rx Last Taken Unknown] metoprolol tartrate 25 mg PO BID #0 tab 07/16/21 [Rx Last Taken Unknown] pantoprazole [Protonix] 40 mg PO DAILY 07/19/21 [History Last Taken Unknown] tramadol 50 mg PO DAILY 07/19/21 [History Last Taken Unknown] bumetanide [Bumex] 2 mg PO DAILY 08/10/21 [History Last Taken Unknown] levothyroxine [Synthroid] 25 mcg PO DAILY 08/10/21 [History Last Taken Unknown] potassium chloride 40 meq PO BID 08/10/21 [History Last Taken Unknown] Allergy/AdvReac Type Severity Reaction Status Date / Time No Known Allergies Allergy Verified 06/11/21 15:09 Surgical History History of left shoulder replacement Social History household members: none housing: intermediate current occupational status: disabled Smoking Status: Never smoker alcohol intake: never substance use type: does not use ROS Review of Systems ROS Unobtainable: other Constitutional Constitutional: Denies fatigue, fever(s), poor appetite, weight gain or weight loss ENT HEENT: Denies mouth lesions Cardiovascular Cardiovascular: Denies abdominal bloating, abdominal edema or abdominal pain Respiratory/Chest Respiratory/Chest: Denies change in mental status, change in phlegm color, chest congestion or chest tightness Gastrointestinal Gastrointestinal: Denies belching, bloating, change in bowel habits, change in stool character, chewing difficulty, coffee ground emesis, constipation, cramping, diarrhea, dyspepsia, dysphagia, early satiety, excessive flatus, fecal incontinence, heartburn, hematemesis, hematochezia, hemorrhoids, loose stools, melena, nausea, odynophagia, rectal bleeding, tenesmus, vomiting or weight changes Genitourinary Genitourinary: Denies abdominal discomfort, burning urination or itching Musculoskeletal Musculoskeletal: Reports as per HPI; Denies muscle weakness or myalgias Integumentary Integumentary: Denies jaundice Neurologic Neurologic: Denies lack of coordination or weakness Psychiatric Psychiatric: Denies confusion, depression, memory loss, mood swings, paranoia or suicidal ideation Endocrine Endocrinology: Denies systems reviewed and no addt'l complaints, except as documented Hematologic/Lymphatic Hematologic/Lymphatic: Denies anemia, easy bleeding, easy bruising or lymphadenopathy Allergic/Immunologic Allergic/Immunologic: Denies systems reviewed and no addt'l complaints, except as documented Physical Exam Const alert General Appearance: cooperative Orientation / Consciousness: oriented to person HEENT hearing grossly normal bilaterally Head and Scalp: normal to inspection Face and Sinus: face symmetric Nose: external nose normal Mouth: oral and palatal mucosa normal Eyes conjunctivae normal General Eye: normal appearance of both eyes Neck full ROM General: normal visual inspection Lymph Lymphatic: no lymphadenopathy noted Chest inspection of chest normal and palpation of chest normal Chest: symmetrical chest wall rise Resp normal respiratory effort Effort and Inspection: able to speak in complete sentences Cardio regular rate GI non-distended Percussion: normal to percussion Rectal Exam: deferred Neuro Speech: speech normal Gait (Neuro): normal gait Lab / Micro Data Result Diagrams: 08/13/21 06:15 08/13/21 06:15 Labs: Laboratory Results - last 24 hr 08/12/21 11:14: POC Glucose 160 H 08/12/21 16:27: POC Glucose 158 H 08/12/21 20:35: Hgb 7.6 L, Hct 25.2 L 08/12/21 21:26: POC Glucose 166 H 08/13/21 06:06: POC Glucose 112 H 08/13/21 06:15: WBC 13.9 H, RBC 3.17 L, Hgb 8.2 L, Hct 27.4 L, MCV 86.4, MCH 25.9 L, MCHC 29.9 L, RDW Std Deviation 59.7 H, RDW Coeff of Jory 19.1 H, Plt Count 172, MPV 10.3, Immature Gran % (Auto) 4.900 H, Neut % (Auto) 83.1 H, Lymph % (Auto) 3.9 L, Trinity % (Auto) 7.5, Eos % (Auto) 0.3, Baso % (Auto) 0.3, Absolute Neuts (auto) 11.6 H, Absolute Lymphs (auto) 0.54 L, Nucleated RBC % 0.4, Plt Morphology Comment CLUMPED, Anisocytosis 2+ 08/13/21 06:15: Sodium 138, Potassium 3.9, Chloride 103, Carbon Dioxide 27.0, Anion Gap 8, BUN 90 H, Creatinine 2.37 H, Estim Creat Clear Calc 27.50, Est GFR (MDRD) Af Amer 35 L, Est GFR (MDRD) Non-Af 29 L, BUN/Creatinine Ratio 38.0 H, Glucose 120 H, Calcium 9.0 08/13/21 06:15: Magnesium 1.5 L 08/13/21 06:15: Troponin I High Sens 17 Micro: Microbiology 08/10/21 15:29 Blood Culture (Wb) - Other Bacteria Detection (PCR) - Final Staphylococcus aureus 08/10/21 15:29 Blood Culture (Wb) - Other Blood Culture - Preliminary Staphylococcus aureus 08/10/21 14:25 Urine Catheter - Franco Urine Culture - Final Escherichia coli Staphylococcus aureus 08/12/21 18:02 Stool Stool Occult Blood (DAMIAN) - Final Occult Blood Positive 08/12/21 10:00 Nasal Secretion SARS-CoV-2 Antigen (Rapid) - Final 08/11/21 12:15 Blood Culture (Wb) - Right Hand Blood Culture - Preliminary 08/10/21 18:54 Blood Culture (Wb) - Other Blood Culture - Preliminary Staphylococcus aureus Radiology Impression Knee X-Ray 08/12/21 10:48 IMPRESSION: Severe DJD of the knee joint Electronically Signed: Luis Denny MD at 16:43 EDT Reading Location ID and State: [facility] / [place] , Service support , Shoulder X-Ray 08/12/21 10:48 IMPRESSION: No acute or significant process Electronically Signed: Luis Denny MD at 16:44 EDT , Charges/Coding Visit Charges Inpatient E&M: 27645 Init Hosp L2
--- NOTE | 2021-08-13 08:00 | ECHOTEE_ITS ---
Reason For Study: MSSA Bacteremia, R/O Endocarditis Medication SHLOMO probe 6VT-D (SN [id number]) passed without difficulty. No complications were noted. Cetacaine Topical [place] given X3 orally. No sedation administered. Bubble study negative on SHLOMO 06/16/21. Left Ventricle Normal LV size. Left ventricular systolic function is normal. No regional wall motion abnormalities noted. Right Ventricle Normal RV size. Normal systolic function. Atria Normal atrial septum. Normal left atrium. No thrombus is detected in the left atrial appendage. Normal right atrium. Mitral Valve Normal mitral valve. Mild (1+) eccentric mitral valve insufficiency. Tricuspid Valve Normal tricuspid valve. Aortic Valve Trisinus/trileaflet aortic valve. Mild diffuse aortic valve thickening. Trivial aortic valve insufficiency. Pulmonic Valve Normal pulmonic valve. Pericardium No pericardial effusion. ECHO/Echo Transesophageal (SHLOMO) Interpretation Summary There is no evidence of a mass or vegetation. This does not rule out endocardit is. Normal LV size. Left ventricular systolic function is normal. No regional wall motion abnormalities noted. Mild diffuse aortic valve thickening. Trivial aortic valve insufficiency. Ordering Physician: Donte Serna Performed By: Shaila Matos RDCS
--- NOTE | 2021-08-13 08:35 | CON.PCM.CA_ITS ---
Assessment & Plan Assessment/Plan (1) CHF exacerbation: QUALIFIERS: Heart failure type: diastolic Qualified Code(s): I50.33 - Acute on chronic diastolic (congestive) heart failure PLAN: He does have an exacerbation of congestive heart failure. The above is likely secondary to diastolic dysfunction. I would recommend we continue the IV diuretics at this time. (2) Heart block AV second degree: PLAN: He does have intermittent second-degree heart block with A-V dissociation. Due to his bacteremia as well as his cellulitis and likely infection I do not think that he is a candidate for permanent pacemaker implantation. I would suggest that we hold off on giving any beta-qing and will pursue expectant management. (3) Bacteremia: PLAN: He does have bacteremia and will undergo a SHLOMO this morning. Further recommendations will depend on the results of the above. HPI Consult Data Date of Consult: 08/13/21 HPI Narrative HPI Narrative: MICHEAL LEÓN, is a 70 M who presents being transferred from another facility for hypoxia. Patient also has had evidence of bacteremia and a previous history of hypertension and deep vein thrombosis. Patient has had significant respiratory problems and on this admission we have requested to do a transvaginal echocardiogram. Incidentally the patient this morning was noted to have an abnormal cardiac rhythm consisting initially of sinus tachycardia on admission and then subsequently an AV dissociated rhythm. Patient has been on a beta-qing. Patient previously had a SHLOMO in June of this year which did not demonstrate any evidence of endocarditis. He denies any chest pain though he is short of breath at rest he has had pedal edema no paroxysmal nocturnal dyspnea. He has had no dizziness or diaphoresis no near syncope or syncope. He is also noted to be significantly anemic and was being seen by the GI service. [facility] Medical History 2019-nCoV vaccination declined Cellulitis Debility DVT (deep venous thrombosis) Fall HTN (hypertension) Leukocytosis Obesity Home Medications latanoprost 1 drp EACH EYE QHS 06/11/21 [History Last Taken 08/09/21 22:00] ipratropium-albuterol 3 ml INHALATION Q4HWA.RT PRN #0 ml 06/20/21 [Rx Last Taken 08/10/21 06:30] insulin lispro [Humalog KwikPen Insulin] 5 unit SUBCUT TIDAC #0 ml 07/16/21 [Rx Last Taken Unknown] menthol-zinc oxide [Calmoseptine] 1 applic TOPICAL BID #0 g 07/16/21 [Rx Last Taken Unknown] metoprolol tartrate 25 mg PO BID #0 tab 07/16/21 [Rx Last Taken Unknown] pantoprazole [Protonix] 40 mg PO DAILY 07/19/21 [History Last Taken Unknown] tramadol 50 mg PO DAILY 07/19/21 [History Last Taken Unknown] bumetanide [Bumex] 2 mg PO DAILY 08/10/21 [History Last Taken Unknown] levothyroxine [Synthroid] 25 mcg PO DAILY 08/10/21 [History Last Taken Unknown] potassium chloride 40 meq PO BID 08/10/21 [History Last Taken Unknown] Allergy/AdvReac Type Severity Reaction Status Date / Time No Known Allergies Allergy Verified 06/11/21 15:09 Surgical History History of left shoulder replacement Social History household members: none housing: half-way current occupational status: disabled Smoking Status: Never smoker alcohol intake: never substance use type: does not use ROS Constitutional Constitutional: Denies fever(s) or weight loss Eyes Eyes: Reports systems reviewed and no addt'l complaints, except as documented ENT HEENT: Reports systems reviewed and no addt'l complaints, except as documented Cardiovascular Cardiovascular: Denies chest pain at rest, chest pain with activity, dyspnea at rest, dyspnea on exertion, edema, palpitations or paroxysmal nocturnal dyspnea Respiratory/Chest Respiratory/Chest: Reports dyspnea on exertion, productive cough, shortness of breath at rest and shortness of breath with exertion Gastrointestinal Gastrointestinal: Denies change in bowel habits, nausea, vomiting or weight ch anges Genitourinary Genitourinary: Denies difficulty urinating Musculoskeletal Musculoskeletal: Denies joint stiffness or muscle weakness Integumentary Integumentary: Denies lesions Neurologic Neurologic: Denies dizziness or syncope Psychiatric Psychiatric: Denies anxiety Endocrine Endocrinology: Denies excessive sweating or fatigue Hematologic/Lymphatic Hematologic/Lymphatic: Denies anemia Allergic/Immunologic Allergic/Immunologic: Denies seasonal rhinorrhea Physical Exam Const alert, oriented x3 and no apparent distress General Appearance: cooperative HEENT hearing grossly normal bilaterally Head and Scalp: atraumatic Eyes EOMs intact bilaterally Neck General: normal visual inspection Chest inspection of chest normal and palpation of chest normal Resp normal respiratory effort Auscultation: clear to auscultation bilaterally Cardio regular rate, regular rhythm, S1 normal heart sound and S2 normal heart sound Jugular Venous Distention: JVD GI normal to inspection, nondistended, normoactive bowel sounds Extremity normal capillary refill General Extremity: edema Peripheral Pulses: Yes pulses 2+ throughout and femoral pulses present Skin no rashes or lesions noted Neuro oriented x3 and CN's II-XII intact bilaterally Psych Appearance: grossly normal and appropriate Risk Stratification Risk Stratification Applicable: No Objective Data Vital Signs: Vital Signs Temp Pulse Resp BP Pulse Ox 98.7 F 57 L 35 H 117/71 99 08/13/21 05:43 08/13/21 07:36 08/13/21 07:35 08/13/21 05:43 08/13/21 07:35 Oxygen Flow Rate (L/min) 4 Oxygen Delivery Method Nasal Cannula Weight: 357 lb 12.964 oz Body Mass Index (BMI) 56.7 Intake & Output: Intake and Output for Last 24 Hours 08/11/21 08/12/21 08/13/21 23:59 23:59 23:59 Intake Total 944.12 / 1104.12 2049.2 / 2049.2 Output Total 1100 / 1900 4500 / 4500 1350 / 1350 Balance -155.88 / -795.88 -2450.8 / -2450.8 -1350 / -1350 Lab / Micro Data Result Diagrams: 08/13/21 06:15 08/13/21 06:15 Labs: Laboratory Results - last 24 hr 08/12/21 11:14: POC Glucose 160 H 08/12/21 16:27: POC Glucose 158 H 08/12/21 20:35: Hgb 7.6 L, Hct 25.2 L 08/12/21 21:26: POC Glucose 166 H 08/13/21 06:06: POC Glucose 112 H 08/13/21 06:15: WBC 13.9 H, RBC 3.17 L, Hgb 8.2 L, Hct 27.4 L, MCV 86.4, MCH 25.9 L, MCHC 29.9 L, RDW Std Deviation 59.7 H, RDW Coeff of Jory 19.1 H, Plt Count 172, MPV 10.3, Immature Gran % (Auto) 4.900 H, Neut % (Auto) 83.1 H, Lymph % (Auto) 3.9 L, Baxter % (Auto) 7.5, Eos % (Auto) 0.3, Baso % (Auto) 0.3, Absolute Neuts (auto) 11.6 H, Absolute Lymphs (auto) 0.54 L, Nucleated RBC % 0.4, Plt Morphology Comment CLUMPED, Anisocytosis 2+ 08/13/21 06:15: Sodium 138, Potassium 3.9, Chloride 103, Carbon Dioxide 27.0, Anion Gap 8, BUN 90 H, Creatinine 2.37 H, Estim Creat Clear Calc 27.50, Est GFR (MDRD) Af Amer 35 L, Est GFR (MDRD) Non-Af 29 L, BUN/Creatinine Ratio 38.0 H, Glucose 120 H, Calcium 9.0 08/13/21 06:15: Magnesium 1.5 L 08/13/21 06:15: Troponin I High Sens 17 Micro: Microbiology 08/10/21 15:29 Blood Culture (Wb) - Other Bacteria Detection (PCR) - Final Staphylococcus aureus 08/10/21 15:29 Blood Culture (Wb) - Other Blood Culture - Preliminary Staphylococcus aureus 08/10/21 14:25 Urine Catheter - Franco Urine Culture - Final Escherichia coli Staphylococcus aureus 08/12/21 18:02 Stool Stool Occult Blood (DAMIAN) - Final Occult Blood Positive 08/12/21 10:00 Nasal Secretion SARS-CoV-2 Antigen (Rapid) - Final 08/11/21 12:15 Blood Culture (Wb) - Right Hand Blood Culture - Preliminary 08/10/21 18:54 Blood Culture (Wb) - Other Blood Culture - Preliminary Staphylococcus aureus Cardiology Labs/Tests 08/12/21 20:35: Hgb 7.6 L, Hct 25.2 L 08/13/21 06:15: WBC 13.9 H, RBC 3.17 L, Hgb 8.2 L, Hct 27.4 L, MCV 86.4, MCH 25.9 L, MCHC 29.9 L, Plt Count 172, MPV 10.3, Immature Gran % (Auto) 4.900 H, Neut % (Auto) 83.1 H, Lymph % (Auto) 3.9 L, [place] % (Auto) 7.5, Eos % (Auto) 0.3, Baso % (Auto) 0.3, Absolute Neuts (auto) 11.6 H, Nucleated RBC % 0.4 08/13/21 06:15: Sodium 138, Potassium 3.9, Chloride 103, Carbon Dioxide 27.0, Anion Gap 8, BUN 90 H, Creatinine 2.37 H, Est GFR (MDRD) Af Amer 35 L, Est GFR (MDRD) Non-Af 29 L, BUN/Creatinine Ratio 38.0 H, Glucose 120 H, Calcium 9.0 08/13/21 06:15: Magnesium 1.5 L Rhythm: EKG: ECHO: Stress Test: Cardiac Cath: PCI: CT Surgery: Holter monitor: EPS: PPM: CXR: Chest CT Scan: Radiography Diagnostic Testing: Radiology Impression Knee X-Ray 08/12/21 10:48 IMPRESSION: Severe DJD of the knee joint Electronically Signed: Luis Denny MD at 16:43 EDT Reading Location ID and State: [address] [place] [address] , Service support , Shoulder X-Ray 08/12/21 10:48 IMPRESSION: No acute or significant process Electronically Signed: Luis Denny MD at 16:44 EDT ,
[2021-08-13 09:17] LABS: Troponin-I HS 18 pg/mL (3.0-78.0)
[2021-08-13] MEDS: Menthol/Lanolin/Calamine/Znox 113 GM Tube 1 APPLIC TOPICAL ×2 (10:19→21:46)
[2021-08-13] MEDS: guaiFENesin 1,200 MG Tablet 1200 MG PO ×2 (10:19→21:08)
[2021-08-13] MEDS: Insulin Lispro 100 UNIT/ML INSULN.PEN SC ×4 (11:35→21:12)
[2021-08-13 11:46] LABS: Bedside Glucose 189 mg/dL (74-106)
--- NOTE | 2021-08-13 13:06 | PCM.PN.HOSP ---
Subjective Subjective Overnight he had some heart rhythm issues, this morning cardiology evaluated the patient second to a possible second-degree AV block with A-V dissociation he would likely need a pacemaker however he has bacteremic. Objective Data Objective Data Vital Signs: Vital Signs Temp Pulse Resp BP Pulse Ox 97.7 F L 61 22 H 128/64 H 93 08/13/21 09:20 08/13/21 11:20 08/13/21 11:20 08/13/21 09:20 08/13/21 12:23 Oxygen Flow Rate (L/min) 3 Oxygen Delivery Method Nasal Cannula Weight: 357 lb 12.964 oz Body Mass Index (BMI) 56.7 Intake & Output: Intake and Output for Last 24 Hours 08/12/21 08/13/21 08/14/21 03:59 03:59 03:59 Intake Total 1104.12 / 1104.12 1889.2 / 1889.2 214 / 214 Output Total 1900 / 1900 3700 / 3700 1350 / 1350 Balance -795.88 / -795.88 -1810.8 / -1810.8 -1136 / -1136 Lab / Micro Data Result Diagrams: 08/13/21 06:15 08/13/21 06:15 Labs: Laboratory Results - last 24 hr 08/12/21 16:27: POC Glucose 158 H 08/12/21 20:35: Hgb 7.6 L, Hct 25.2 L 08/12/21 21:26: POC Glucose 166 H 08/13/21 06:06: POC Glucose 112 H 08/13/21 06:15: WBC 13.9 H, RBC 3.17 L, Hgb 8.2 L, Hct 27.4 L, MCV 86.4, MCH 25.9 L, MCHC 29.9 L, RDW Std Deviation 59.7 H, RDW Coeff of Jory 19.1 H, Plt Count 172, MPV 10.3, Immature Gran % (Auto) 4.900 H, Neut % (Auto) 83.1 H, Lymph % (Auto) 3.9 L, [place] % (Auto) 7.5, Eos % (Auto) 0.3, Baso % (Auto) 0.3, Absolute Neuts (auto) 11.6 H, Absolute Lymphs (auto) 0.54 L, Nucleated RBC % 0.4, Plt Morphology Comment CLUMPED, Anisocytosis 2+ 08/13/21 06:15: Sodium 138, Potassium 3.9, Chloride 103, Carbon Dioxide 27.0, Anion Gap 8, BUN 90 H, Creatinine 2.37 H, Estim Creat Clear Calc 27.50, Est GFR (MDRD) Af Amer 35 L, Est GFR (MDRD) Non-Af 29 L, BUN/Creatinine Ratio 38.0 H, Glucose 120 H, Calcium 9.0 08/13/21 06:15: Magnesium 1.5 L 08/13/21 06:15: Troponin I High Sens 17 08/13/21 08:20: Troponin I High Sens 18 08/13/21 11:33: POC Glucose 189 H Micro: Microbiology 08/10/21 18:54 Blood Culture (Wb) - Other Blood Culture - Preliminary Staphylococcus aureus 08/11/21 12:15 Blood Culture (Wb) - Right Hand Blood Culture - Preliminary Staphylococcus aureus 08/10/21 15:29 Blood Culture (Wb) - Other Bacteria Detection (PCR) - Final Staphylococcus aureus 08/10/21 15:29 Blood Culture (Wb) - Other Blood Culture - Final Staphylococcus aureus 08/10/21 14:25 Urine Catheter - Franco Urine Culture - Final Escherichia coli Staphylococcus aureus 08/12/21 18:02 Stool Stool Occult Blood (DAMIAN) - Final Occult Blood Positive 08/12/21 10:00 Nasal Secretion SARS-CoV-2 Antigen (Rapid) - Final 08/10/21 13:45 Mucosa - Nasopharyngeal Respiratory Panel (PCR) - Final Radiography Diagnostic Testing: Radiology Impression Knee X-Ray 08/12/21 10:48 IMPRESSION: Severe DJD of the knee joint Electronically Signed: Luis Denny MD at 16:43 EDT Reading Location ID and State: [facility] / [place] , Service support , Shoulder X-Ray 08/12/21 10:48 IMPRESSION: No acute or significant process Electronically Signed: Luis Denny MD at 16:44 EDT , Transesophageal Echocardiogram 08/13/21 08:00 Interpretation Summary There is no evidence of a mass or vegetation. This does not rule out endocarditis. Normal LV size. Left ventricular systolic function is normal. No regional wall motion abnormalities noted. Mild diffuse aortic valve thickening. Trivial aortic valve insufficiency. Ordering Physician: Donte Serna Performed By: Shaila Matos RDCS Physical Exam Const alert, oriented x3 and no apparent distress General Appearance: cooperative HEENT normocephalic and moist oral mucous membranes Eyes PERRL, EOMs intact bilaterally and conjunctivae normal Neck supple and no JVD Resp normal respiratory effort, no retractions, no use of accessory muscles and clear to auscultation bilaterally Auscultation: Negative for crackles, rales, rhonchi or wheezes Cardio regular rate, regular rhythm, S1 normal heart sound, S2 normal heart sound and no murmurs GI soft to palpation, non-tender and non-distended; Negative for hepatosplenomegaly Extremity General Extremity: edema Skin Skin Narrative: Bilateral lymphedema with a decubitus ulcer of the sacrum Neuro no focal motor deficits and no sensory deficits noted Psych affect normal Appearance: appropriate Assessment & Plan Assessment/Plan (1) Acute renal failure: QUALIFIERS: Acute renal failure type: unspecified Qualified Code(s): N17.9 - Acute kidney failure, unspecified (2) CKD stage 4 due to type 1 diabetes mellitus: (3) COPD exacerbation: (4) CHF exacerbation: QUALIFIERS: Heart failure type: diastolic Qualified Code(s): I50.33 - Acute on chronic diastolic (congestive) heart failure PLAN: 1. Acute on chronic hypoxic respiratory failure due to COPD exacerbation and CHF exacerbation: Patient is being admitted in PCU directly from [facility]. Patient was accepted by my colleague on the PCU floor. ABG, D-dimer and BiPAP ordered stat. DuoNeb stat. 08/11: ABG was reviewed yesterday on 08/10. 7.40/43/133 on BiPAP suggestive of hypoxia. No hypercarbia. D-dimer was elevated. Venous duplex was negative for DVT. Furthermore VQ scan was done which reported low probability of PE. Chest x-ray shows increased bronchovascular markings, congestion suggestive of pulmonary edema. 08/12: Patient remains intermittently on BiPAP and nasal cannula. Currently on 3 L of oxygen. Labored breathing. 08/13/2021: Continue with IV diuresis 2. Bacteremia most likely MSSA: During admission in June 2020, SHLOMO because of MSSA bacteremia in June 2019 did not show any vegetation reported normal mitral tricuspid valve. Mild diffuse aortic valve thickening. At that time patient was treated with IV cefazolin. This time prelim blood cultures x2 shows a staph, mec-A not detected most likely MSSA. Discussed with ID and requested consult. You will start on IV cefepime. Patient completed 3 doses of Zithromax. ID recommended SHLOMO which is ordered. Patient also had left pain and left shoulder replacement in the past therefore x-rays of left shoulder and left knee ordered. No official report pending. I individually reviewed the x-rays and does not seem to have acute abnormality on my individual review. Reviewed blood culture from 08/11 shows gram-positive cocci. 08/12: Discussed with ID. Agreed with SHLOMO tomorrow AM. There is tenderness over left knee. Patient had left shoulder replacement and ROM is very restricted/limited. X-ray of 08/13/2021: SHLOMO was negative for any valvular vegetations. We will continue with IV antibiotics per ID. He did have an MSSA bacteremia back in June etiology this time is likely the decubitus ulcer. Appreciate ID assistance 3. Acute on chronic HFpEF/second-degree AV block with A-V dissociation: Patient had last echo in June 2021 shows EF 65%, stage I diastolic dysfunction. Study was technically difficult due to body habitus and valves could not be well visualized. Heart failure core measures including intake and output, fluid restriction less than 1500 mL, daily weight monitoring, kidney and electrolytes monitoring. Serial troponins ordered. On Lasix drip. 08/11: Patient was a started on Lasix drip by my colleague last night. [employer] consult reviewed. 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 Peak creatinine was 3.6 slowly trending down. Serial troponins negative. ACS ruled out. TSH normal. 08/13/2021: Overnight he had episodes of V. tach, cardiology evaluated the strips and felt that he had a second-degree AV block with A-V dissociation. We will stop beta-blockers and consult cardiology for continued management while inpatient 4. Possible COPD exacerbation: Patient never had PFT done last discharge was advised to follow-up in pulmonary clinic but patient never made it. Patient has been never a smoker. DuoNeb every 4 hourly. IV Solu-Medrol, incentive spirometry, Pep ordered. Chest x-ray from outside reviewed and reported as low lung volume with bilateral perihilar haziness possible central pulmonary congestion or atypical pneumonia. Left perihilar through lower lobe fibrosis. 5. Acute kidney injury on CKD G4: Recent renal ultrasound unremarkable. Patient recently had renal biopsy in [facility] 7. 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 As Xarelto is more renally excreted therefore will change to Eliquis. 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 Peak creatinine was 3.6 trending down. Lasix drip increased to 20 mg/h. Metolazone was added. Monitor intake and output. Previous emesis and Bactrim might be the source for postinfectious glomerulonephritis. 08/13/2021: I will continue to monitor function, it is stable currently continue with IV diuresis 6. Chronic normocytic anemia-patient hemoglobin is 8.1. Patient hemoglobin has been between 7.5-8.2 recently in July 2021. Last 1 in our system 7.6 on 07/20. Continue PPI. Stool positive for occult blood 07/14/21. Monitor CBC 08/12: Troponin globin from 7.5-7.0. Low-dose Eliquis 2.5 mg twice daily discontinued. Bilateral SCDs. Stool for occult blood ordered. Monitor H&H in the evening. Monitor CBC daily. 7. Type 2 diabetes skniuxwc-Cfbu-Duvpe ACH coverage Humalog sliding scale continue home insulin regimen. We will monitor and make adjustments as necessary 8. Obesity hypoventilation syndrome/probable NILDA: The patient will need formal pulmonary clinic evaluation for PFT and sleep study. Continue BiPAP 9. Debility/failure to thrive, very limited ADL, morbid obesity-PT OT evaluation. 10. History of DVT: Because of high risk of bleeding and severe anemia, GAYE on CKD G4, hematuria on UA, low-dose Eliquis 2.5 mg twice daily. Charges/Coding Visit Charges Inpatient E&M: 44350 Subs Hosp L2
[2021-08-13 13:08] LABS: Troponin-I HS 17 pg/mL (3.0-78.0)
--- NOTE | 2021-08-13 14:24 | CASEMGMT ---
MIMI faxed updates to [facility]. Leslie Caldera TAG WRITER LIANA
[2021-08-13] MEDS: oxyCODONE 5 MG Tablet PO (14:38)
--- NOTE | 2021-08-13 15:19 | PN.RENAL_ITS ---
Subjective Subjective events noted. SHLOMO ok. developed GI bleed. asking for water. urine output is still great Objective Data Objective Data Vital Signs: Vital Signs Temp Pulse Resp BP Pulse Ox 98.6 F 72 17 141/72 H 98 08/13/21 15:13 08/13/21 15:13 08/13/21 15:13 08/13/21 15:13 08/13/21 15:13 Oxygen Flow Rate (L/min) 3 Oxygen Delivery Method Nasal Cannula Weight: 162.3 kg Body Mass Index (BMI) 56.7 Intake & Output: Intake and Output for Last 24 Hours 08/11/21 08/12/21 08/13/21 23:59 23:59 23:59 Intake Total 944.12 / 1104.12 2049.2 / 2049.2 844 / 844 Output Total 1100 / 1900 4500 / 4500 2950 / 2950 Balance -155.88 / -795.88 -2450.8 / -2450.8 -2106 / -2106 Lab / Micro Data Result Diagrams: 08/13/21 06:15 08/13/21 06:15 Labs: Laboratory Results - last 24 hr 08/12/21 16:27: POC Glucose 158 H 08/12/21 20:35: Hgb 7.6 L, Hct 25.2 L 08/12/21 21:26: POC Glucose 166 H 08/13/21 06:06: POC Glucose 112 H 08/13/21 06:15: WBC 13.9 H, RBC 3.17 L, Hgb 8.2 L, Hct 27.4 L, MCV 86.4, MCH 25.9 L, MCHC 29.9 L, RDW Std Deviation 59.7 H, RDW Coeff of Jory 19.1 H, Plt Count 172, MPV 10.3, Immature Gran % (Auto) 4.900 H, Neut % (Auto) 83.1 H, Lymph % (Auto) 3.9 L, [place] % (Auto) 7.5, Eos % (Auto) 0.3, Baso % (Auto) 0.3, Absolute Neuts (auto) 11.6 H, Absolute Lymphs (auto) 0.54 L, Nucleated RBC % 0.4, Plt Morphology Comment CLUMPED, Anisocytosis 2+ 08/13/21 06:15: Sodium 138, Potassium 3.9, Chloride 103, Carbon Dioxide 27.0, Anion Gap 8, BUN 90 H, Creatinine 2.37 H, Estim Creat Clear Calc 27.50, Est GFR (MDRD) Af Amer 35 L, Est GFR (MDRD) Non-Af 29 L, BUN/Creatinine Ratio 38.0 H, Glucose 120 H, Calcium 9.0 08/13/21 06:15: Magnesium 1.5 L 08/13/21 06:15: Troponin I High Sens 17 08/13/21 08:20: Troponin I High Sens 18 08/13/21 11:33: POC Glucose 189 H 08/13/21 12:40: Troponin I High Sens 17 Micro: Microbiology 08/10/21 18:54 Blood Culture (Wb) - Other Blood Culture - Preliminary Staphylococcus aureus 08/11/21 12:15 Blood Culture (Wb) - Right Hand Blood Culture - Preliminary Staphylococcus aureus 08/10/21 15:29 Blood Culture (Wb) - Other Bacteria Detection (PCR) - Final Staphylococcus aureus 08/10/21 15:29 Blood Culture (Wb) - Other Blood Culture - Final Staphylococcus aureus 08/10/21 14:25 Urine Catheter - Thibodeaux Urine Culture - Final Escherichia coli Staphylococcus aureus 08/12/21 18:02 Stool Stool Occult Blood (DAMIAN) - Final Occult Blood Positive 08/12/21 10:00 Nasal Secretion SARS-CoV-2 Antigen (Rapid) - Final 08/10/21 13:45 Mucosa - Nasopharyngeal Respiratory Panel (PCR) - Final Radiography Diagnostic Testing: Radiology Impression Knee X-Ray 08/12/21 10:48 IMPRESSION: Severe DJD of the knee joint Electronically Signed: Luis Denny MD at 16:43 EDT Reading Location ID and State: [facility] / [place] , Service support , Shoulder X-Ray 08/12/21 10:48 IMPRESSION: No acute or significant process Electronically Signed: Luis Denny MD at 16:44 EDT , Transesophageal Echocardiogram 05/06/22 08:00 Interpretation Summary There is no evidence of a mass or vegetation. This does not rule out endocarditis. Normal LV size. Left ventricular systolic function is normal. No regional wall motion abnormalities noted. Mild diffuse aortic valve thickening. Trivial aortic valve insufficiency. 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 Peak creatinine was 3.6. Slowly trending down. He is still bacteremic, it is possible that now the nephritis is still ongoing. Clinically volume overloaded. This could be part of nephritis syndrome. Started on IV Lasix drip. Last echocardiogram with grade 1 diastolic dysfunction. Maintain Thibodeaux catheter for now. despote recurrent bacteremia cr is better. MSSA bacteremia. Started back on antibiotics by ID service. (3) Edema:
[2021-08-13 16:45] LABS: Bedside Glucose 144 mg/dL (74-106)
--- NOTE | 2021-08-13 16:49 | PN.ORTHO_ITS ---
Subjective Subjective Patient seen and examined at bedside today. Continues with some soreness in his left knee and left shoulder. Underwent SHLOMO earlier today. Patient amenable to arthrocentesis of the left shoulder and left knee today. Denies fevers, chills, nausea vomiting, chest pain or shortness of breath. Objective Data Objective Data Vital Signs: Vital Signs Temp Pulse Resp BP Pulse Ox 98.6 F 72 17 141/72 H 98 08/13/21 15:13 08/13/21 15:13 08/13/21 15:13 08/13/21 15:13 08/13/21 15:13 Oxygen Flow Rate (L/min) 3 Oxygen Delivery Method Nasal Cannula Weight: 357 lb 12.964 oz Body Mass Index (BMI) 56.7 Intake & Output: Intake and Output for Last 24 Hours 08/11/21 08/12/21 08/13/21 23:59 23:59 23:59 Intake Total 944.12 / 1104.12 2049.2 / 2049.2 844 / 844 Output Total 1100 / 1900 4500 / 4500 2950 / 2950 Balance -155.88 / -795.88 -2450.8 / -2450.8 -2106 / -2106 Lab / Micro Data Result Diagrams: 08/13/21 06:15 08/13/21 06:15 Labs: Laboratory Results - last 24 hr 08/12/21 20:35: Hgb 7.6 L, Hct 25.2 L 08/12/21 21:26: POC Glucose 166 H 08/13/21 06:06: POC Glucose 112 H 08/13/21 06:15: WBC 13.9 H, RBC 3.17 L, Hgb 8.2 L, Hct 27.4 L, MCV 86.4, MCH 25.9 L, MCHC 29.9 L, RDW Std Deviation 59.7 H, RDW Coeff of Jory 19.1 H, Plt Count 172, MPV 10.3, Immature Gran % (Auto) 4.900 H, Neut % (Auto) 83.1 H, Lymph % (Auto) 3.9 L, [place] % (Auto) 7.5, Eos % (Auto) 0.3, Baso % (Auto) 0.3, Absolute Neuts (auto) 11.6 H, Absolute Lymphs (auto) 0.54 L, Nucleated RBC % 0.4, Plt Morphology Comment CLUMPED, Anisocytosis 2+ 08/13/21 06:15: Sodium 138, Potassium 3.9, Chloride 103, Carbon Dioxide 27.0, Anion Gap 8, BUN 90 H, Creatinine 2.37 H, Estim Creat Clear Calc 27.50, Est GFR (MDRD) Af Amer 35 L, Est GFR (MDRD) Non-Af 29 L, BUN/Creatinine Ratio 38.0 H, Glucose 120 H, Calcium 9.0 08/13/21 06:15: Magnesium 1.5 L 08/13/21 06:15: Troponin I High Sens 17 08/13/21 08:20: Troponin I High Sens 18 08/13/21 11:33: POC Glucose 189 H 08/13/21 12:40: Troponin I High Sens 17 08/13/21 16:15: POC Glucose 144 H Micro: Microbiology 08/10/21 18:54 Blood Culture (Wb) - Other Blood Culture - Preliminary Staphylococcus aureus 08/11/21 12:15 Blood Culture (Wb) - Right Hand Blood Culture - Preliminary Staphylococcus aureus 08/10/21 15:29 Blood Culture (Wb) - Other Bacteria Detection (PCR) - Final Staphylococcus aureus 08/10/21 15:29 Blood Culture (Wb) - Other Blood Culture - Final Staphylococcus aureus 08/10/21 14:25 Urine Catheter - Franco Urine Culture - Final Escherichia coli Staphylococcus aureus 08/12/21 18:02 Stool Stool Occult Blood (DAMIAN) - Final Occult Blood Positive 08/12/21 10:00 Nasal Secretion SARS-CoV-2 Antigen (Rapid) - Final 08/10/21 13:45 Mucosa - Nasopharyngeal Respiratory Panel (PCR) - Final Radiography Diagnostic Testing: Radiology Impression Transesophageal Echocardiogram 08/13/21 08:00 Interpretation Summary There is no evidence of a mass or vegetation. This does not rule out endocarditis. Normal LV size. Left ventricular systolic function is normal. No regional wall motion abnormalities noted. Mild diffuse aortic valve thickening. Trivial aortic valve insufficiency. Ordering Physician: Donte Serna Performed By: Shaila Matos RDCS Physical Exam Narrative General -A&Ox3, NAD, appears stated age. Left shoulder-deltopectoral incision is noted, pristine and well-healed. There is no erythema no warmth. Internal extra rotation of the shoulder does not elicit short arc range of motion pain. Neurovascular intact throughout the left upper extremity. Radial pulses 2+. No palpable fluctuance throughout the left shoulder. Left knee-DF, PF, EHL intact left lower extremity. The left knee is slightly warm to touch. Short arc range of motion pain is noted. Unable to palpate significant effusion, however bipedal edema is noted and Giuseppe wraps are in place. Range of motion testing was limited due to pain. Assessment & Plan Assessment/Plan (1) Left shoulder pain: PLAN: Recommended left shoulder arthrocentesis to rule out PJI as acute source of MSSA bacteremia. See procedure note below for further details. (2) Osteoarthritis of left knee: PLAN: Recommended left knee arthrocentesis to rule out septic arthritis as acute source of MSSA bacteremia. See procedure note below for further details. Procedure note: Consent: Verbal informed consent obtained for left shoulder and left knee arthro centesis Indication: Rule out intra-articular source of MSSA bacteremia in the setting of left knee and left shoulder pain Procedure: 1. Left shoulder arthrocentesis. 2. Left knee arthrocentesis Procedure details: I first prepped the skin overlying the superior medial left knee with ChloraPrep. An 18-gauge needle was then inserted just superior to the patella and angled towards the knee joint. Multiple passes of the needle yielded very little blood and no significant effusion was able to be aspirated. Needle was withdrawn. Injection site was dressed with a pressure dressing. Patient t olerated procedure well without complication. I then turned my attention to the left shoulder. An entry point was selected just lateral to the coracoid process. Skin was prepped with ChloraPrep. An 18- gauge needle was then inserted just lateral to the coracoid process angling towards the glenohumeral joint. Needle was passed several times into the joint and a small bowel blood was aspirated. No significant fluid collection or effusion was appreciated. Needle was withdrawn. Injection site was dressed with a pressure dressing. Patient tolerated procedure well without complication. Septic arthritis of the left knee and prosthetic joint infection of the left shoulder is considered less likely given the dry aspirations of both today. I recommend continued medical treatment of bacteremia. Fluoroscopic versus ultrasound guided aspiration may be considered if patient does not respond to antibiotics. No acute surgical invention recommended at this time. Will follow.
[2021-08-13] MEDS: Furosemide 500 MG in Empty Viaflex 50 mL 1 EACH CONT INF (17:52)
--- NOTE | 2021-08-13 18:29 | NURSING ---
Reviewed charting with John El RN
[2021-08-13] MEDS: Latanoprost 0.005% 1 Bottle 1 DRP EACH EYE (21:10)
[2021-08-13] MEDS: 0.9% Saline Lock 10 ML Syringe IV (21:13)
[2021-08-13 23:01] LABS: Bedside Glucose 198 mg/dL (74-106)
[2021-08-14] VITALS (19 sets, daily range): BP systolic 105–122; BP diastolic 45–66; PULSE 50–59; RESP 14–24; TEMP 35.6–36.5; O2SAT 93–100
[2021-08-14] MEDS: Levothyroxine 25 MCG TABLET PO (06:00)
[2021-08-14] MEDS: Ipratropium/Albuterol Sulfate 3 ML AMPUL.NEB INHALATION ×4 (07:14→19:16)
[2021-08-14 07:25] LABS: Hematocrit 27.6 % (40-54); Hemoglobin 8.4 g/dL (13.0-16.5); Mean Corp Hgb Conc 30.4 g/dL (32-36); Mean Corpuscular Volume 85.4 fL (80-94); POSITIVE COUNT YES; POSITIVE MORPHOLOGY YES; Platelet Count 422 K/mm3 (150-450); RBC Distribution Width SD 58.4 fl (35.1-43.9); Red Blood Count 3.23 M/mm3 (4.6-6.2); White Blood Count 16.5 K/mm3 (4.4-11.0)
[2021-08-14 07:36] LABS: Anion Gap 7 (5-15); BUN 87 mg/dL (7-18); BUN/Creat Ratio 37.7 RATIO (10-20); Calcium,Total 9.1 mg/dL (8.5-10.1); Chloride 98 mmol/L (98-107); Creatinine, Serum 2.31 mg/dL (0.70-1.30); EST Glomerular Filtration Rate 30 mL/min (>60); Est Glom Filt Rate - Afr Amer 36 mL/min (>60); Estimated Creatinine Clearance 28.22 ml/min; Glucose 139 mg/dL (74-106); Potassium 3.7 mmol/L (3.5-5.1); Sodium Level 136 mmol/L (136-145)
[2021-08-14 07:56] LABS: Bedside Glucose 130 mg/dL (74-106)
[2021-08-14] MEDS: 0.9% Saline Lock 10 ML Syringe IV (08:01)
[2021-08-14 08:12] LABS: Differential Indicated MANUAL DIFF
[2021-08-14 09:00] LABS: Eosinophil 2 % (0-5); Lymphocyte 2 % (19-41); Metamyelocyte 3 % (0-1); Monocyte 6 % (0-10); Myelocyte 2 % (0-0); Neutrophil-Segmented 85 % (47-70); Total Cells Counted 100 (MANUAL DIFF)
[2021-08-14 09:01] LABS: Platelet Estimate ADEQUATE (ADEQ); Red Cell Morphology NORM C+C NORMAL (NORM C&C)
[2021-08-14 09:02] LABS: Absolute Lymphocyte Count 0.33 X10^3/uL (0.83-4.51)
--- NOTE | 2021-08-14 09:12 | PN_ITS ---
Subjective Subjective Patient's breathing is still not back to his baseline. He is tolerating a diet. Still immobile in bed and requiring use of supplemental oxygen as well as positive and expiratory pressure. Objective Data Objective Data Vital Signs: Vital Signs Temp Pulse Resp BP Pulse Ox 96.0 F L 55 L 20 H 110/66 93 08/14/21 04:29 08/14/21 07:15 08/14/21 07:15 08/14/21 04:29 08/14/21 07:15 Oxygen Flow Rate (L/min) 3 Oxygen Delivery Method Nasal Cannula Weight: 361 lb 15.984 oz Body Mass Index (BMI) 56.7 Intake & Output: Intake and Output for Last 24 Hours 08/12/21 08/13/21 08/14/21 23:59 23:59 23:59 Intake Total 2049.2 / 2049.2 1403.37 / 1603.37 300 / 300 Output Total 4500 / 4500 3450 / 3750 1000 / 1000 Balance -2450.8 / -2450.8 -2046.63 / -2146.63 -700 / -700 Lab / Micro Data Result Diagrams: 08/14/21 06:50 08/14/21 06:50 Labs: Laboratory Results - last 24 hr 08/13/21 08:20: Troponin I High Sens 18 08/13/21 11:33: POC Glucose 189 H 08/13/21 12:40: Troponin I High Sens 17 08/13/21 16:15: POC Glucose 144 H 08/13/21 21:10: POC Glucose 198 H 08/14/21 06:50: WBC 16.5 H, RBC 3.23 L, Hgb 8.4 L, Hct 27.6 L, MCV 85.4, MCH 26.0 L, MCHC 30.4 L, RDW Std Deviation 58.4 H, RDW Coeff of Jory 19.0 H, Plt Count 422, MPV 10.0, Neut % (Auto) Not Reportable, Absolute Neuts (auto) 14.0 H, Absolute Lymphs (auto) 0.33 L, Total Counted 100, Neutrophils % (Manual) 85 H, L ymphocytes % (Manual) 2 L, Monocytes % (Manual) 6, Eosinophils % (Manual) 2, Metamyelocytes % 3 H, Myelocytes % 2 H, Diff Path Review May foll, Platelet Estimate ADEQUATE, RBC Morphology NORM C+C 08/14/21 06:50: Sodium 136, Potassium 3.7, Chloride 98, Carbon Dioxide 31.0, Anion Gap 7, BUN 87 H, Creatinine 2.31 H, Estim Creat Clear Calc 28.22, Est GFR (MDRD) Af Amer 36 L, Est GFR (MDRD) Non-Af 30 L, BUN/Creatinine Ratio 37.7 H, Glucose 139 H, Calcium 9.1 08/14/21 07:51: POC Glucose 130 H Micro: Microbiology 08/12/21 10:16 Blood Culture (Wb) - Right Hand Blood Culture - Preliminary No growth in 48 hours. 08/10/21 18:54 Blood Culture (Wb) - Other Blood Culture - Preliminary Staphylococcus aureus 08/11/21 12:15 Blood Culture (Wb) - Right Hand Blood Culture - Preliminary Staphylococcus aureus 08/10/21 15:29 Blood Culture (Wb) - Other Bacteria Detection (PCR) - Final Staphylococcus aureus 08/10/21 15:29 Blood Culture (Wb) - Other Blood Culture - Final Staphylococcus aureus 08/10/21 14:25 Urine Catheter - Franco Urine Culture - Final Escherichia coli Staphylococcus aureus 08/12/21 18:02 Stool Stool Occult Blood (DAMIAN) - Final Occult Blood Positive 08/12/21 10:00 Nasal Secretion SARS-CoV-2 Antigen (Rapid) - Final 08/10/21 13:45 Mucosa - Nasopharyngeal Respiratory Panel (PCR) - Final Radiography Diagnostic Testing: Radiology Impression Transesophageal Echocardiogram 08/13/21 08:00 Interpretation Summary There is no evidence of a mass or vegetation. This does not rule out endocarditi s. Normal LV size. Left ventricular systolic function is normal. No regional wall motion abnormalities noted. Mild diffuse aortic valve thickening. Trivial aortic valve insufficiency. Ordering Physician: Donte Serna Performed By: Shaila Matos RDCS Physical Exam Const alert General Appearance: cooperative Orientation / Consciousness: oriented to person HEENT hearing grossly normal bilaterally Head and Scalp: normal to inspection Face and Sinus: face symmetric Nose: external nose normal Mouth: oral and palatal mucosa normal Eyes conjunctivae normal General Eye: normal appearance of both eyes Neck full ROM General: normal visual inspection Lymph Lymphatic: no lymphadenopathy noted Chest inspection of chest normal and palpation of chest normal Chest: symmetrical chest wall rise Resp normal respiratory effort Effort and Inspection: able to speak in complete sentences Cardio regular rate GI non-distended Percussion: normal to percussion Rectal Exam: deferred Neuro Speech: speech normal Gait (Neuro): normal gait Assessment & Plan Assessment/Plan (1) Anemia: PLAN: Patient hemoglobin seems to be holding. His white blood cell count is increasing and his respiratory status is still very labile. At this time he still remains a very high risk for endoscopy because he would likely need to be intubated due to his poor respiratory effort and no reserves along with his acute congestive heart failure in the setting of heart block. Recommend to continue to monitor him and medical therapy before or possible upper GI bleed secondary to multiple reasons including likely portal gastropathy possible AVM possible peptic ulcer disease. I will continue to follow. Charges/Coding Visit Charges Inpatient E&M: 28765 Subs Hosp L2
--- NOTE | 2021-08-14 09:26 | EKG12_ITS ---
Test Reason : RHYTHM CHANGE Blood Pressure : / mmHG Vent. Rate : 051 BPM Atrial Rate : 340 BPM P-R Int : 000 ms QRS Dur : 140 ms QT Int : 510 ms P-R-T Axes : 000 074 017 degrees QTc Int : 470 ms Atrial flutter Right bundle branch block Abnormal ECG When compared with ECG of 14-AUG-2021 09:34, MANUAL COMPARISON REQUIRED, DATA IS UNCONFIRMED Confirmed by ROSELYN VALDEZ, KEIKO ([id number]), senior technical editor CARLYLE MADISON ([id number]) on 08/17/2021 8:17:42 AM Referred By: DIMITRI Confirmed By:KEIKO DEMPSEY MD
--- NOTE | 2021-08-14 09:29 | PN.RENAL_ITS ---
Subjective Subjective Following for acute kidney injury on chronic kidney disease. The patient reports being weak. He still has dyspnea with exertion. There is no chest pain, nausea, or vomiting. Objective Data Objective Data Vital Signs: Vital Signs Temp Pulse Resp BP Pulse Ox 96.0 F L 55 L 20 H 110/66 93 08/14/21 04:29 08/14/21 07:15 08/14/21 07:15 08/14/21 04:29 08/14/21 07:15 Oxygen Flow Rate (L/min) 3 Oxygen Delivery Method Nasal Cannula Weight: 164.2 kg Body Mass Index (BMI) 56.7 Intake & Output: Intake and Output for Last 24 Hours 08/12/21 08/13/21 08/14/21 23:59 23:59 23:59 Intake Total 2049.2 / 2049.2 1403.37 / 1603.37 300 / 300 Output Total 4500 / 4500 3450 / 3750 1000 / 1000 Balance -2450.8 / -2450.8 -2046.63 / -2146.63 -700 / -700 Lab / Micro Data Result Diagrams: 08/14/21 06:50 08/14/21 06:50 Labs: Laboratory Results - last 24 hr 08/13/21 11:33: POC Glucose 189 H 08/13/21 12:40: Troponin I High Sens 17 08/13/21 16:15: POC Glucose 144 H 08/13/21 21:10: POC Glucose 198 H 08/14/21 06:50: WBC 16.5 H, RBC 3.23 L, Hgb 8.4 L, Hct 27.6 L, MCV 85.4, MCH 26.0 L, MCHC 30.4 L, RDW Std Deviation 58.4 H, RDW Coeff of Jory 19.0 H, Plt Count 422, MPV 10.0, Neut % (Auto) Not Reportable, Absolute Neuts (auto) 14.0 H, Absolute Lymphs (auto) 0.33 L, Total Counted 100, Neutrophils % (Manual) 85 H, Lymphocytes % (Manual) 2 L, Monocytes % (Manual) 6, Eosinophils % (Manual) 2, Metamyelocytes % 3 H, Myelocytes % 2 H, Diff Path Review May , Platelet Estimate ADEQUATE, RBC Morphology NORM C+C 08/14/21 06:50: Sodium 136, Potassium 3.7, Chloride 98, Carbon Dioxide 31.0, Anion Gap 7, BUN 87 H, Creatinine 2.31 H, Estim Creat Clear Calc 28.22, Est GFR (MDRD) Af Amer 36 L, Est GFR (MDRD) Non-Af 30 L, BUN/Creatinine Ratio 37.7 H, Glucose 139 H, Calcium 9.1 08/14/21 07:51: POC Glucose 130 H Micro: Microbiology 08/12/21 10:16 Blood Culture (Wb) - Right Hand Blood Culture - Preliminary No growth in 48 hours. 08/10/21 18:54 Blood Culture (Wb) - Other Blood Culture - Preliminary Staphylococcus aureus 08/11/21 12:15 Blood Culture (Wb) - Right Hand Blood Culture - Preliminary Staphylococcus aureus 08/10/21 15:29 Blood Culture (Wb) - Other Bacteria Detection (PCR) - Final Staphylococcus aureus 08/10/21 15:29 Blood Culture (Wb) - Other Blood Culture - Final Staphylococcus aureus 08/10/21 14:25 Urine Catheter - Franco Urine Culture - Final Escherichia coli Staphylococcus aureus 08/12/21 18:02 Stool Stool Occult Blood (DAMIAN) - Final Occult Blood Positive 08/12/21 10:00 Nasal Secretion SARS-CoV-2 Antigen (Rapid) - Final 08/10/21 13:45 Mucosa - Nasopharyngeal Respiratory Panel (PCR) - Final Radiography Diagnostic Testing: Radiology Impression Transesophageal Echocardiogram 08/13/21 08:00 Interpretation Summary There is no evidence of a mass or vegetation. This does not rule out endocarditis. Normal LV size. Left ventricular systolic function is normal. No regional wall motion abnormalities noted. Mild diffuse aortic valve thickening. Trivial aortic valve insufficiency. Ordering Physician: Donte Serna Performed By: Shaila Matso RDCS Physical Exam Narrative General: Alert and oriented x3. No apparent distress. HEENT: Normocephalic, atraumatic. PERRLA, EOMI. Mucous membrane moist. Heart: Normal S1, S2. No rubs, murmurs or gallops. Lungs: Clear to auscultation anteriorly. Abdomen: Obese, normal bowel sound, soft, nontender, no guarding or rebound. Extremities: Lower extremities wrapped in Giuseppe bandage. There is 2+ edema in the lower extremities. Assessment & Plan Assessment/Plan (1) GAYE (acute kidney injury): PLAN: - The patient has normal baseline kidney function. His serum creatinine was 0.95 mg/dL on 06/21/2021. 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 -Serum creatinine peaked at 3.60 mg/dL in July with gradual improvement. -The patient is admitted again on 08/11/2021 with volume overload/heart failure with preserved ejection fraction exacerbation. So, there may be some component of GAYE from cardiorenal syndrome as well. -Despite starting furosemide drip, renal function has stabilized. Serum creatinine is 2.31 mg/dL today and was 2.37 mg/dL yesterday. -Continue furosemide drip with careful monitoring of renal function, volume status, and electrolytes. -There is no need for kidney replacement therapy. -Current medications are reviewed and are appropriately dosed for his estimated GFR. (2) Anemia: PLAN: - The patient likely has anemia of chronic disease. -Unfortunately, there is no role for MERLIN in the setting of GAYE. -Hemoglobin has been relatively stable in the last 2 days. -Continue to monitor hemoglobin and transfuse if less than 7 g/dL. (3) Acute on chronic respiratory failure with hypoxia: PLAN: - The patient has multifactorial explanations for acute hypoxic r espiratory failure. -He has exacerbation of heart failure with preserved ejection fraction, acute ki dney injury predisposing volume overload, and possible COPD. -The patient is being treated with furosemide drip for volume control. -He is also on bronchodilator as per hospital medicine service. (4) Bacteremia: PLAN: - The patient has persistent MSSA bacteremia. -The patient is status post left shoulder arthrocentesis. I believe culture from joint aspiration is still pending. -The patient is on cefepime. Dose of cefepime should be adjusted for decreased renal function. He is currently getting 2 g of cefepime every 12 hours. If this is the intended dose for creatinine clearance of greater than 60 mL/min, I would recommend reducing the dose to 1 g every 12 hours since his creatinine clearance is around 34 mL/min. However, if the intended dose for patient with creatinine clearance of greater than 60 mL/min is 2 g every 8 hours, the current dose is the correct dose.
[2021-08-14] MEDS: guaiFENesin 1,200 MG Tablet 1200 MG PO ×2 (09:31→21:15)
[2021-08-14] MEDS: Insulin Lispro 100 UNIT/ML INSULN.PEN SC ×3 (09:31→17:13)
[2021-08-14] MEDS: Menthol/Lanolin/Calamine/Znox 113 GM Tube 1 APPLIC TOPICAL ×2 (09:32→21:16)
--- NOTE | 2021-08-14 10:18 | PCM.PN.HOSP ---
Subjective Subjective Doing well, no issues overnight. His creatinine has stabilized. Tolerating the Lasix drip. He did have joint aspiration by orthopedic surgery, those fluids are pending Objective Data Objective Data Vital Signs: Vital Signs Temp Pulse Resp BP Pulse Ox 97.7 F L 57 L 20 H 108/45 L 100 08/14/21 09:40 08/14/21 09:40 08/14/21 09:40 08/14/21 09:40 08/14/21 09:40 Oxygen Flow Rate (L/min) 2 Oxygen Delivery Method Nasal Cannula Weight: 361 lb 15.984 oz Body Mass Index (BMI) 56.7 Intake & Output: Intake and Output for Last 24 Hours 08/13/21 08/14/21 08/15/21 03:59 03:59 03:59 Intake Total 1889.2 / 1889.2 1603.37 / 1603.37 100 / 100 Output Total 3700 / 3700 3750 / 3750 700 / 700 Balance -1810.8 / -1810.8 -2146.63 / -2146.63 -600 / -600 Lab / Micro Data Result Diagrams: 08/14/21 06:50 08/14/21 06:50 Labs: Laboratory Results - last 24 hr 08/13/21 11:33: POC Glucose 189 H 08/13/21 12:40: Troponin I High Sens 17 08/13/21 16:15: POC Glucose 144 H 08/13/21 21:10: POC Glucose 198 H 08/14/21 06:50: WBC 16.5 H, RBC 3.23 L, Hgb 8.4 L, Hct 27.6 L, MCV 85.4, MCH 26.0 L, MCHC 30.4 L, RDW Std Deviation 58.4 H, RDW Coeff of Jory 19.0 H, Plt Count 422, MPV 10.0, Neut % (Auto) Not Reportable, Absolute Neuts (auto) 14.0 H, Absolute Lymphs (auto) 0.33 L, Total Counted 100, Neutrophils % (Manual) 85 H, Lymphocytes % (Manual) 2 L, Monocytes % (Manual) 6, Eosinophils % (Manual) 2, Metamyelocytes % 3 H, Myelocytes % 2 H, Diff Path Review August, Platelet Estimate ADEQUATE, RBC Morphology NORM C+C 08/14/21 06:50: Sodium 136, Potassium 3.7, Chloride 98, Carbon Dioxide 31.0, Anion Gap 7, BUN 87 H, Creatinine 2.31 H, Estim Creat Clear Calc 28.22, Est GFR (MDRD) Af Amer 36 L, Est GFR (MDRD) Non-Af 30 L, BUN/Creatinine Ratio 37.7 H, Glucose 139 H, Calcium 9.1 08/14/21 07:51: POC Glucose 130 H Micro: Microbiology 08/12/21 10:16 Blood Culture (Wb) - Right Hand Blood Culture - Preliminary No growth in 48 hours. 08/10/21 18:54 Blood Culture (Wb) - Other Blood Culture - Preliminary Staphylococcus aureus 08/11/21 12:15 Blood Culture (Wb) - Right Hand Blood Culture - Preliminary Staphylococcus aureus 08/10/21 15:29 Blood Culture (Wb) - Other Bacteria Detection (PCR) - Final Staphylococcus aureus 08/10/21 15:29 Blood Culture (Wb) - Other Blood Culture - Final Staphylococcus aureus 08/10/21 14:25 Urine Catheter - Franco Urine Culture - Final Escherichia coli Staphylococcus aureus 08/12/21 18:02 Stool Stool Occult Blood (DAMIAN) - Final Occult Blood Positive 08/12/21 10:00 Nasal Secretion SARS-CoV-2 Antigen (Rapid) - Final 08/10/21 13:45 Mucosa - Nasopharyngeal Respiratory Panel (PCR) - Final Physical Exam Narrative Const alert, oriented x3 and no apparent distress General Appearance: cooperative HEENT normocephalic and moist oral mucous membranes Eyes PERRL, EOMs intact bilaterally and conjunctivae normal Neck supple and no JVD Resp normal respiratory effort, no retractions, no use of accessory muscles and clear to auscultation bilaterally Auscultation: Negative for crackles, rales, rhonchi or wheezes Cardio regular rate, regular rhythm, S1 normal heart sound, S2 normal heart sound and no murmurs GI soft to palpation, non-tender and non-distended; Negative for hepatosplenomegaly Extremity General Extremity: edema Skin Skin Narrative: Bilateral lymphedema with a decubitus ulcer of the sacrum Neuro no focal motor deficits and no sensory deficits noted Psych affect normal Appearance: appropriate Assessment & Plan Assessment/Plan (1) Acute renal failure: QUALIFIERS: Acute renal failure type: unspecified Qualified Code(s): N17.9 - Acute kidney failure, unspecified (2) CKD stage 4 due to type 1 diabetes mellitus: (3) COPD exacerbation: (4) CHF exacerbation: QUALIFIERS: Heart failure type: diastolic Qualified Code(s): I50.33 - Acute on chronic diastolic (congestive) heart failure PLAN: 1. Acute on chronic hypoxic respiratory failure due to COPD exacerbation and CHF exacerbation: Patient is being admitted in PCU directly from [facility]. Patient was accepted by my colleague on the PCU floor. ABG, D-dimer and BiPAP ordered stat. DuoNeb stat. 08/11: ABG was reviewed yesterday on 08/10. 7.40/43/133 on BiPAP suggestive of hypoxia. No hypercarbia. D-dimer was elevated. Venous duplex was negative for DVT. Furthermore VQ scan was done which reported low probability of PE. Chest x-ray shows increased bronchovascular markings, congestion suggestive of pulmonary edema. 08/12: Patient remains intermittently on BiPAP and nasal cannula. Currently on 3 L of oxygen. Labored breathing. 08/13/2021: Continue with IV diuresis 08/13/2021: Continue with IV diuresis, his creatinine is stable appreciate nephrology's assistance 2. Bacteremia most likely MSSA: During admission in June 2020, SHLOMO because of MSSA bacteremia in June 2019 did not show any vegetation reported normal mitral tricuspid valve. Mild diffuse aortic valve thickening. At that time patient was treated with IV cefazolin. This time prelim blood cultures x2 shows a staph, mec-A not detected most likely MSSA. Discussed with ID and requested consult. You will start on IV cefepime. Patient completed 3 doses of Zithromax. ID recommended SHLOMO which is ordered. Patient also had left pain and left shoulder replacement in the past therefore x-rays of left shoulder and left knee ordered. No official report pending. I individually reviewed the x-rays and does not seem to have acute abnormality on my individual review. Reviewed blood culture from 08/11 shows gram-positive cocci. 08/12: Discussed with ID. Agreed with SHLOMO tomorrow AM. There is tenderness over left knee. Patient had left shoulder replacement and ROM is very restricted/limited. X-ray of 08/13/2021: SHLOMO was negative for any valvular vegetations. We will continue with IV antibiotics per ID. He did have an MSSA bacteremia back in June etiology this time is likely the decubitus ulcer. Appreciate ID assistance 3. Acute on chronic HFpEF/second-degree AV block with A-V dissociation: Patient had last echo in June 2021 shows EF 65%, stage I diastolic dysfunction. Study was technically difficult due to body habitus and valves could not be well visualized. Heart failure core measures including intake and output, fluid restriction less than 1500 mL, daily weight monitoring, kidney and electrolytes monitoring. Serial troponins ordered. On Lasix drip. 08/11: Patient was a started on Lasix drip by my colleague last night. [employer] consult reviewed. 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 Peak creatinine was 3.6 slowly trending down. Serial troponins negative. ACS ruled out. TSH normal. 08/13/2021: Overnight he had episodes of V. tach, cardiology evaluated the strips and felt that he had a second-degree AV block with A-V dissociation. We will stop beta-blockers and consult cardiology for continued management while inpatient 08/14/2021: No abnormal rhythms overnight, cardiology is following and will likely need a pacemaker placed after he has cleared the infections which can likely be in several weeks. 4. Possible COPD exacerbation: Patient never had PFT done last discharge was advised to follow-up in pulmonary clinic but patient never made it. Patient has been never a smoker. DuoNeb every 4 hourly. IV Solu-Medrol, incentive spirometry, Pep ordered. Chest x-ray from outside reviewed and reported as low lung volume with bilateral perihilar haziness possible central pulmonary congestion or atypical pneumonia. Left perihilar through lower lobe fibrosis. 5. Acute kidney injury on CKD G4: Recent renal ultrasound unremarkable. Patient recently had renal biopsy in [facility] 7. 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 As Xarelto is more renally excreted therefore will change to Eliquis. 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 Peak creatinine was 3.6 trending down. Lasix drip increased to 20 mg/h. Metolazone was added. Monitor intake and output. Previous emesis and Bactrim might be the source for postinfectious glomerulonephritis. 08/13/2021: I will continue to monitor function, it is stable currently continue with IV diuresis 6. Chronic normocytic anemia-patient hemoglobin is 8.1. Patient hemoglobin has been between 7.5-8.2 recently in July 2021. Last 1 in our system 7.6 on 07/20. Continue PPI. Stool positive for occult blood 07/14/21. Monitor CBC 08/12: Troponin globin from 7.5-7.0. Low-dose Eliquis 2.5 mg twice daily discontinued. Bilateral SCDs. Stool for occult blood ordered. Monitor H&H in the evening. Monitor CBC daily. 7. Type 2 diabetes [id number] ACH coverage Humalog sliding scale continue home insulin regimen. We will monitor and make adjustments as necessary 8. Obesity hypoventilation syndrome/probable NILDA: The patient will need formal pulmonary clinic evaluation for PFT and sleep study. Continue BiPAP 9. Debility/failure to thrive, very limited ADL, morbid obesity-PT OT evaluation. DVT: SCDs Charges/Coding Visit Charges Inpatient E&M: 32498 Subs Hosp L2
--- NOTE | 2021-08-14 10:48 | PN.CARD_ITS ---
Subjective Subjective Patient seen and evaluated. Appears to be fairly stable. Still coughing however. Objective Data Vital Signs: Vital Signs Temp Pulse Resp BP Pulse Ox 97.7 F L 57 L 20 H 108/45 L 100 08/14/21 09:40 08/14/21 09:40 08/14/21 09:40 08/14/21 09:40 08/14/21 09:40 Oxygen Flow Rate (L/min) 2 Oxygen Delivery Method Nasal Cannula Weight: 361 lb 15.984 oz Body Mass Index (BMI) 56.7 Intake & Output: Intake and Output for Last 24 Hours 08/12/21 08/13/21 08/14/21 23:59 23:59 23:59 Intake Total 2049.2 / 2049.2 1403.37 / 1603.37 400 / 400 Output Total 4500 / 4500 3450 / 3750 1000 / 1000 Balance -2450.8 / -2450.8 -2046.63 / -2146.63 -600 / -600 Lab / Micro Data Result Diagrams: 08/14/21 06:50 08/14/21 06:50 Labs: Laboratory Results - last 24 hr 08/13/21 11:33: POC Glucose 189 H 08/13/21 12:40: Troponin I High Sens 17 08/13/21 16:15: POC Glucose 144 H 08/13/21 21:10: POC Glucose 198 H 08/14/21 06:50: WBC 16.5 H, RBC 3.23 L, Hgb 8.4 L, Hct 27.6 L, MCV 85.4, MCH 26.0 L, MCHC 30.4 L, RDW Std Deviation 58.4 H, RDW Coeff of Jory 19.0 H, Plt Count 422, MPV 10.0, Neut % (Auto) Not Reportable, Absolute Neuts (auto) 14.0 H, Absolute Lymphs (auto) 0.33 L, Total Counted 100, Neutrophils % (Manual) 85 H, Lymphocytes % (Manual) 2 L, Monocytes % (Manual) 6, Eosinophils % (Manual) 2, Metamyelocytes % 3 H, Myelocytes % 2 H, Diff Path Review May foll, Platelet Estimate ADEQUATE, RBC Morphology NORM C+C 08/14/21 06:50: Sodium 136, Potassium 3.7, Chloride 98, Carbon Dioxide 31.0, Anion Gap 7, BUN 87 H, Creatinine 2.31 H, Estim Creat Clear Calc 28.22, Est GFR (MDRD) Af Amer 36 L, Est GFR (MDRD) Non-Af 30 L, BUN/Creatinine Ratio 37.7 H, Glucose 139 H, Calcium 9.1 08/14/21 07:51: POC Glucose 130 H Micro: Microbiology 08/12/21 10:16 Blood Culture (Wb) - Right Hand Blood Culture - Preliminary No growth in 48 hours. 08/10/21 18:54 Blood Culture (Wb) - Other Blood Culture - Preliminary Staphylococcus aureus 08/11/21 12:15 Blood Culture (Wb) - Right Hand Blood Culture - Preliminary Staphylococcus aureus 08/10/21 15:29 Blood Culture (Wb) - Other Bacteria Detection (PCR) - Final Staphylococcus aureus 08/10/21 15:29 Blood Culture (Wb) - Other Blood Culture - Final Staphylococcus aureus 08/10/21 14:25 Urine Catheter - Franco Urine Culture - Final Escherichia coli Staphylococcus aureus Cardiology Labs/Tests 08/14/21 06:50: WBC 16.5 H, RBC 3.23 L, Hgb 8.4 L, Hct 27.6 L, MCV 85.4, MCH 26.0 L, MCHC 30.4 L, Plt Count 422, MPV 10.0, Neut % (Auto) Not Reportable, Absolute Neuts (auto) 14.0 H, Total Counted 100, Neutrophils % (Manual) 85 H, Lymphocytes % (Manual) 2 L, Monocytes % (Manual) 6, Eosinophils % (Manual) 2, Metamyelocytes % 3 H, Myelocytes % 2 H 08/14/21 06:50: Sodium 136, Potassium 3.7, Chloride 98, Carbon Dioxide 31.0, Anion Gap 7, BUN 87 H, Creatinine 2.31 H, Est GFR (MDRD) Af Amer 36 L, Est GFR (MDRD) Non-Af 30 L, BUN/Creatinine Ratio 37.7 H, Glucose 139 H, Calcium 9.1 Rhythm: EKG: ECHO: Stress Test: Cardiac Cath: PCI: CT Surgery: Holter monitor: EPS: PPM: CXR: Chest CT Scan: Physical Exam Const alert, oriented x3 and no apparent distress General Appearance: cooperative HEENT hearing grossly normal bilaterally Head and Scalp: atraumatic Eyes EOMs intact bilaterally Neck General: normal visual inspection Chest inspection of chest normal and palpation of chest normal Resp normal respiratory effort Effort and Inspection: decreased respiratory effort Auscultation: diminished lung sounds Cardio regular rate, regular rhythm, S1 normal heart sound and S2 normal heart sound Jugular Venous Distention: JVD GI normal to inspection, nondistended, normoactive bowel sounds Extremity normal capillary refill and no pedal edema Peripheral Pulses: Yes pulses 2+ throughout and femoral pulses present Skin no rashes or lesions noted Neuro oriented x3 and CN's II-XII intact bilaterally Psych Appearance: grossly normal and appropriate Assessment & Plan Assessment/Plan (1) CHF exacerbation: QUALIFIERS: Heart failure type: diastolic Qualified Code(s): I50.33 - Acute on chronic diastolic (congestive) heart failure PLAN: He does have an exacerbation of congestive heart failure. The above is likely secondary to diastolic dysfunction. I would recommend we continue the IV diuretics at this time. (2) Heart block AV second degree: PLAN: He does have intermittent second-degree heart block with A-V dissociation. Due to his bacteremia as well as his cellulitis and likely infection I do not think that he is a candidate for permanent pacemaker implantation. I would suggest that we hold off on giving any beta-qing and will pursue expectant management. * Ideally we would like to hold off until the patient has had appropriate antibiotics for the duration of time and has been free of any infection for 1 to 2 weeks before implanting any device * Will also suggest ID input regarding the above. His risk for an infection for an implanted device will be rather high at this time. * Hopefully with discontinuing his beta-qing his rhythm would continue to improve over time. (3) Bacteremia: PLAN: He does have bacteremia and the SHLOMO did not demonstrate any evidence of valvular vegetation.
[2021-08-14 11:55] LABS: Bedside Glucose 146 mg/dL (74-106)
--- NOTE | 2021-08-14 13:21 | PN.ORTHO_ITS ---
Subjective Subjective Patient seen and examined. Denies any new complaints. Reports his left knee and left shoulder pain are stable. Denies fevers, chills, nausea vomiting, chest pain or shortness of breath. Objective Data Objective Data Vital Signs: Vital Signs Temp Pulse Resp BP Pulse Ox 97.7 F L 58 L 17 108/45 L 100 08/14/21 09:40 08/14/21 10:52 08/14/21 10:52 08/14/21 09:40 08/14/21 11:48 Oxygen Flow Rate (L/min) 2 Oxygen Delivery Method Nasal Cannula Weight: 361 lb 15.984 oz Body Mass Index (BMI) 56.7 Intake & Output: Intake and Output for Last 24 Hours 08/12/21 08/13/21 08/14/21 23:59 23:59 23:59 Intake Total 2049.2 / 2049.2 1403.37 / 1603.37 750 / 750 Output Total 4500 / 4500 3450 / 3750 1999 / 1999 Balance -2450.8 / -2450.8 -2046.63 / -2146.63 -1250 / -1250 Lab / Micro Data Result Diagrams: 08/14/21 06:50 08/14/21 06:50 Labs: Laboratory Results - last 24 hr 08/13/21 16:15: POC Glucose 144 H 08/13/21 21:10: POC Glucose 198 H 08/14/21 06:50: WBC 16.5 H, RBC 3.23 L, Hgb 8.4 L, Hct 27.6 L, MCV 85.4, MCH 26 .0 L, MCHC 30.4 L, RDW Std Deviation 58.4 H, RDW Coeff of Jory 19.0 H, Plt Count 422, MPV 10.0, Neut % (Auto) Not Reportable, Absolute Neuts (auto) 14.0 H, Absolute Lymphs (auto) 0.33 L, Total Counted 100, Neutrophils % (Manual) 85 H, Lymphocytes % (Manual) 2 L, Monocytes % (Manual) 6, Eosinophils % (Manual) 2, Metamyelocytes % 3 H, Myelocytes % 2 H, Diff Path Review May , Platelet Estimate ADEQUATE, RBC Morphology NORM C+C 08/14/21 06:50: Sodium 136, Potassium 3.7, Chloride 98, Carbon Dioxide 31.0, Anion Gap 7, BUN 87 H, Creatinine 2.31 H, Estim Creat Clear Calc 28.22, Est GFR (MDRD) Af Amer 36 L, Est GFR (MDRD) Non-Af 30 L, BUN/Creatinine Ratio 37.7 H, Glucose 139 H, Calcium 9.1 08/14/21 07:51: POC Glucose 130 H 08/14/21 11:43: POC Glucose 146 H Micro: Microbiology 08/12/21 10:16 Blood Culture (Wb) - Right Hand Blood Culture - Preliminary No growth in 48 hours. 08/10/21 18:54 Blood Culture (Wb) - Other Blood Culture - Preliminary Staphylococcus aureus 08/11/21 12:15 Blood Culture (Wb) - Right Hand Blood Culture - Preliminary Staphylococcus aureus 08/10/21 15:29 Blood Culture (Wb) - Other Bacteria Detection (PCR) - Final Staphylococcus aureus 08/10/21 15:29 Blood Culture (Wb) - Other Blood Culture - Final Staphylococcus aureus 08/10/21 14:25 Urine Catheter - Franco Urine Culture - Final Escherichia coli Staphylococcus aureus 08/12/21 18:02 Stool Stool Occult Blood (DAMIAN) - Final Occult Blood Positive 08/12/21 10:00 Nasal Secretion SARS-CoV-2 Antigen (Rapid) - Final 08/10/21 13:45 Mucosa - Nasopharyngeal Respiratory Panel (PCR) - Final Physical Exam Narrative General -A&Ox3, NAD, appears stated age. Left shoulder-deltopectoral incision is noted, pristine and well-healed. There is no erythema no warmth. Internal extra rotation of the shoulder does not elicit short arc range of motion pain. Neurovascular intact throughout the left upper extremity. Radial pulses 2+. No palpable fluctuance throughout the left shoulder. Aspiration site demonstrated minimal ecchymosis. Left knee-DF, PF, EHL intact left lower extremity. The left knee is slightly warm to touch. Short arc range of motion pain is noted. Unable to palpate significant effusion, however bipedal edema is noted and Giuseppe wraps are in place. Range of motion testing was limited due to pain. Aspiration site demonstrated minimal ecchymosis Assessment & Plan Assessment/Plan (1) Left shoulder pain: PLAN: Status post dry aspiration 08/13/2021 left shoulder. Suspicion for clinically significant prosthetic joint infection is low. Decubitus ulcers suspected for source of MSSA. Recommended continued PT/OT as tolerated to the left shoulder and left knee. (2) Osteoarthritis of left knee: PLAN: Status post drain aspiration 08/13/2021 left knee. Suspicion for clinically significant left knee septic arthritis is low. As above, continue PT/OT as tolerated. Analgesics as needed. I will sign off at this time. Please do not hesitate to call if any questions or concerns arise. Thank you for this consultation.
[2021-08-14 16:55] LABS: Bedside Glucose 131 mg/dL (74-106)
[2021-08-14] MEDS: Furosemide 500 MG in Empty Viaflex 50 mL 1 EACH CONT INF (17:10)
[2021-08-14] MEDS: Latanoprost 0.005% 1 Bottle 1 DRP EACH EYE (21:17)
[2021-08-14 22:05] LABS: Bedside Glucose 125 mg/dL (74-106)
--- NOTE | 2021-08-14 22:16 | PCM.HOSP.N ---
Hospitalist Note Notified per staff recurrent + gram cocci in clusters, on cefepime currently, ID consulted and following.
[2021-08-15] VITALS (18 sets, daily range): BP systolic 97–120; BP diastolic 47–53; PULSE 50–83; RESP 14–22; TEMP 36.4–36.7; O2SAT 95–100
--- NOTE | 2021-08-15 00:06 | EKG12_ITS ---
Test Reason : Blood Pressure : / mmHG Vent. Rate : 062 BPM Atrial Rate : 078 BPM P-R Int : 000 ms QRS Dur : 136 ms QT Int : 466 ms P-R-T Axes : 000 056 002 degrees QTc Int : 472 ms Sinus rhythm with AV dissociation Right bundle branch block Abnormal ECG When compared with ECG of 11-AUG-2021 12:30, MANUAL COMPARISON REQUIRED, DATA IS UNCONFIRMED Confirmed by ROSELYN VALDEZ, KEIKO ([id number]), newspaper editor managing CARLYLE MADISON ([id number]) on 08/17/2021 8:19:10 AM Referred By: ROSELYN Confirmed By:KEIKO DEMPSEY MD
[2021-08-15 05:42] LABS: Hematocrit 25.8 % (40-54); Hemoglobin 7.8 g/dL (13.0-16.5); Mean Corp Hgb Conc 30.2 g/dL (32-36); Mean Corpuscular Hgb 25.9 pg (27.0-32.0); Mean Corpuscular Volume 85.7 fL (80-94); Mean Platelet Vol. 10.2 fl (6.2-12.0); POSITIVE COUNT YES; POSITIVE DIFFERENTIAL YES; POSITIVE MORPHOLOGY YES; Platelet Count 323 K/mm3 (150-450); RBC Distribution Width CV 18.9 % (11.6-14.6); RBC Distribution Width SD 58.1 fl (35.1-43.9); Red Blood Count 3.01 M/mm3 (4.6-6.2); White Blood Count 13.4 K/mm3 (4.4-11.0)
[2021-08-15] MEDS: Levothyroxine 25 MCG TABLET PO (05:51)
[2021-08-15 06:00] LABS: Differential Indicated MANUAL DIFF
[2021-08-15 06:03] LABS: Anion Gap 8 (5-15); BUN 90 mg/dL (7-18); BUN/Creat Ratio 42.3 RATIO (10-20); Chloride 97 mmol/L (98-107); Creatinine, Serum 2.13 mg/dL (0.70-1.30); EST Glomerular Filtration Rate 33 mL/min (>60); Est Glom Filt Rate - Afr Amer 40 mL/min (>60); Glucose 157 mg/dL (74-106); Potassium 3.7 mmol/L (3.5-5.1); Sodium Level 135 mmol/L (136-145)
[2021-08-15 06:10] LABS: Anisocytosis 2+
[2021-08-15 06:12] LABS: Absolute Lymphocyte Count 0.67 X10^3/uL (0.83-4.51); Myelocyte 5 % (0-0); Neutrophil-Band 2 % (0-5); Neutrophil-Segmented 80 % (47-70); Total Cells Counted 100 (MANUAL DIFF)
[2021-08-15 06:13] LABS: Eosinophil 4 % (0-5); Lymphocyte 5 % (19-41); Monocyte 4 % (0-10); Nucleated Red Bld Cells,Manual 2 % (0-5); Platelet Estimate ADEQUATE (ADEQ)
[2021-08-15] MEDS: Ipratropium/Albuterol Sulfate 3 ML AMPUL.NEB INHALATION ×3 (07:22→19:35)
[2021-08-15 08:25] LABS: Bedside Glucose 142 mg/dL (74-106)
[2021-08-15] MEDS: Insulin Lispro 100 UNIT/ML INSULN.PEN SC ×6 (08:25→21:19)
[2021-08-15] MEDS: Menthol/Lanolin/Calamine/Znox 113 GM Tube 1 APPLIC TOPICAL ×2 (08:25→21:19)
[2021-08-15] MEDS: guaiFENesin 1,200 MG Tablet 1200 MG PO ×2 (08:26→21:19)
--- NOTE | 2021-08-15 09:03 | PN.CARD_ITS ---
Subjective Subjective Patient seen and evaluated. Appears to be stable. Unfortunately still coughing quite a bit. Objective Data Vital Signs: Vital Signs Temp Pulse Resp BP Pulse Ox 97.6 F L 81 19 H 106/47 L 95 08/15/21 06:00 08/15/21 07:10 08/15/21 07:10 08/15/21 06:00 08/15/21 07:58 Oxygen Flow Rate (L/min) 2 Oxygen Delivery Method Nasal Cannula Weight: 355 lb 9.69 oz Body Mass Index (BMI) 56.7 Intake & Output: Intake and Output for Last 24 Hours 08/13/21 08/14/21 08/15/21 23:59 23:59 23:59 Intake Total 1403.37 / 1603.37 1126.6 / 1326.6 450 / 450 Output Total 3450 / 3750 3000 / 3600 2100 / 2100 Balance -2046.63 / -2146.63 -1873.4 / -2273.4 -1650 / -1650 Lab / Micro Data Result Diagrams: 08/15/21 05:34 08/15/21 05:34 Labs: Laboratory Results - last 24 hr 08/14/21 11:43: POC Glucose 146 H 08/14/21 16:14: POC Glucose 131 H 08/14/21 21:46: POC Glucose 125 H 08/15/21 05:34: Sodium 135 L, Potassium 3.7, Chloride 97 L, Carbon Dioxide 30.0, Anion Gap 8, BUN 90 H, Creatinine 2.13 H, Estim Creat Clear Calc 30.60, Est GFR (MDRD) Af Amer 40 L, Est GFR (MDRD) Non-Af 33 L, BUN/Creatinine Ratio 42.3 H, Glucose 157 H, Calcium 9.0 08/15/21 05:34: WBC 13.4 H, RBC 3.01 L, Hgb 7.8 L, Hct 25.8 L, MCV 85.7, MCH 25.9 L, MCHC 30.2 L, RDW Std Deviation 58.1 H, RDW Coeff of Jory 18.9 H, Plt Count 323, MPV 10.2, Neut % (Auto) Not Reportable, Absolute Neuts (auto) 11.0 H, Absolute Lymphs (auto) 0.67 L, Total Counted 100, Neutrophils % (Manual) 80 H, Band Neutrophils % 2, Lymphocytes % (Manual) 5 L, Monocytes % (Manual) 4, Eos inophils % (Manual) 4, Myelocytes % 5 H, Nucleated RBCs/100 WBC 2, Diff Path Review May foll, Platelet Estimate ADEQUATE, Anisocytosis 2+ 08/15/21 08:23: POC Glucose 142 H Micro: Microbiology 08/13/21 08:20 Blood Culture (Wb) - Other Blood Culture - Preliminary Staphylococcus aureus 08/10/21 18:54 Blood Culture (Wb) - Other Blood Culture - Final Staphylococcus aureus 08/11/21 12:15 Blood Culture (Wb) - Right Hand Blood Culture - Final Staphylococcus aureus Cardiology Labs/Tests 08/15/21 05:34: Sodium 135 L, Potassium 3.7, Chloride 97 L, Carbon Dioxide 30.0, Anion Gap 8, BUN 90 H, Creatinine 2.13 H, Est GFR (MDRD) Af Amer 40 L, Est GFR (MDRD) Non-Af 33 L, BUN/Creatinine Ratio 42.3 H, Glucose 157 H, Calcium 9.0 08/15/21 05:34: WBC 13.4 H, RBC 3.01 L, Hgb 7.8 L, Hct 25.8 L, MCV 85.7, MCH 25.9 L, MCHC 30.2 L, Plt Count 323, MPV 10.2, Neut % (Auto) Not Reportable, Absolute Neuts (auto) 11.0 H, Total Counted 100, Neutrophils % (Manual) 80 H, Band Neutrophils % 2, Lymphocytes % (Manual) 5 L, Monocytes % (Manual) 4, Eosinophils % (Manual) 4, Myelocytes % 5 H Rhythm: EKG: ECHO: Stress Test: Cardiac Cath: PCI: CT Surgery: Holter monitor: EPS: PPM: CXR: Chest CT Scan: Physical Exam Const alert, oriented x3 and no apparent distress General Appearance: cooperative HEENT hearing grossly normal bilaterally Eyes EOMs intact bilaterally Neck General: normal visual inspection Chest inspection of chest normal and palpation of chest normal Resp normal respiratory effort Effort and Inspection: decreased respiratory effort Auscultation: diminished lung sounds Cardio regular rate, regular rhythm, S1 normal heart sound and S2 normal heart sound Jugular Venous Distention: JVD GI normal to inspection, nondistended, normoactive bowel sounds Extremity normal capillary refill and no pedal edema General Extremity: edema Skin no rashes or lesions noted Neuro oriented x3 and CN's II-XII intact bilaterally Psych Appearance: grossly normal and appropriate Assessment & Plan Assessment/Plan (1) CHF exacerbation: QUALIFIERS: Heart failure type: diastolic Qualified Code(s): I50.33 - Acute on chronic diastolic (congestive) heart failure PLAN: He does have an exacerbation of congestive heart failure. The above is likely secondary to diastolic dysfunction. I would recommend we continue the IV diuretics at this time. * He is also noted to be anemic and this may be contributing to some of his shortness of breath (2) Heart block AV second degree: PLAN: He does have intermittent second-degree heart block with A-V dissociation. Due to his bacteremia as well as his cellulitis and likely infection I do not think that he is a candidate for permanent pacemaker implantation. I would suggest that we hold off on giving any beta-qing and will pursue expectant management. * Ideally we would like to hold off until the patient has had appropriate antibiotics for the duration of time and has been free of any infection for 1 to 2 weeks before implanting any device * Will also suggest ID input regarding the above. His risk for an infection for an implanted device will be rather high at this time. * Hopefully with discontinuing his beta-qing his rhythm would continue to improve over time. (3) Bacteremia: PLAN: He does have bacteremia and the SHLOMO did not demonstrate any evidence of valvular vegetation. It appears that his bacteremia is from other sources rather than cardiac.
--- NOTE | 2021-08-15 10:23 | PN.HOSP_ITS ---
Subjective Subjective Doing well, feels better today. Breathing much better today as well. Renal function is stable continuing with IV diuresis. Blood cultures are still turning up positive so we will recheck another 1 today Objective Data Objective Data Vital Signs: Vital Signs Temp Pulse Resp BP Pulse Ox 97.6 F L 81 19 H 106/47 L 95 08/15/21 06:00 08/15/21 07:10 08/15/21 07:10 08/15/21 06:00 08/15/21 07:58 Oxygen Flow Rate (L/min) 2 Oxygen Delivery Method Nasal Cannula Weight: 355 lb 9.69 oz Body Mass Index (BMI) 56.7 Intake & Output: Intake and Output for Last 24 Hours 08/14/21 08/15/21 08/16/21 03:59 03:59 03:59 Intake Total 1603.37 / 1603.37 1126.6 / 1126.6 350 / 350 Output Total 3750 / 3750 3300 / 3300 1500 / 1500 Balance -2146.63 / -2146.63 -2173.4 / -2173.4 -1150 / -1150 Lab / Micro Data Result Diagrams: 08/15/21 05:34 08/15/21 05:34 Labs: Laboratory Results - last 24 hr 08/14/21 11:43: POC Glucose 146 H 08/14/21 16:14: POC Glucose 131 H 08/14/21 21:46: POC Glucose 125 H 08/15/21 05:34: Sodium 135 L, Potassium 3.7, Chloride 97 L, Carbon Dioxide 30.0, Anion Gap 8, BUN 90 H, Creatinine 2.13 H, Estim Creat Clear Calc 30.60, Est GFR (MDRD) Af Amer 40 L, Est GFR (MDRD) Non-Af 33 L, BUN/Creatinine Ratio 42.3 H, Glucose 157 H, Calcium 9.0 08/15/21 05:34: WBC 13.4 H, RBC 3.01 L, Hgb 7.8 L, Hct 25.8 L, MCV 85.7, MCH 25.9 L, MCHC 30.2 L, RDW Std Deviation 58.1 H, RDW Coeff of Jory 18.9 H, Plt Count 323, MPV 10.2, Neut % (Auto) Not Reportable, Absolute Neuts (auto) 11.0 H, Absolute Lymphs (auto) 0.67 L, Total Counted 100, Neutrophils % (Manual) 80 H, Band Neutrophils % 2, Lymphocytes % (Manual) 5 L, Monocytes % (Manual) 4, Eosinophils % (Manual) 4, Myelocytes % 5 H, Nucleated RBCs/100 WBC 2, Diff Path Review August, Platelet Estimate ADEQUATE, Anisocytosis 2+ 08/15/21 08:23: POC Glucose 142 H Micro: Microbiology 08/12/21 10:16 Blood Culture (Wb) - Right Hand Blood Culture - Preliminary 08/13/21 08:20 Blood Culture (Wb) - Other Blood Culture - Preliminary Staphylococcus aureus 08/10/21 18:54 Blood Culture (Wb) - Other Blood Culture - Final Staphylococcus aureus 08/11/21 12:15 Blood Culture (Wb) - Right Hand Blood Culture - Final Staphylococcus aureus 08/10/21 15:29 Blood Culture (Wb) - Other Bacteria Detection (PCR) - Final Staphylococcus aureus 08/10/21 15:29 Blood Culture (Wb) - Other Blood Culture - Final Staphylococcus aureus 08/10/21 14:25 Urine Catheter - Franco Urine Culture - Final Escherichia coli Staphylococcus aureus 08/12/21 18:02 Stool Stool Occult Blood (DAMIAN) - Final Occult Blood Positive 08/12/21 10:00 Nasal Secretion SARS-CoV-2 Antigen (Rapid) - Final 08/10/21 13:45 Mucosa - Nasopharyngeal Respiratory Panel (PCR) - Final Physical Exam Narrative Const alert, oriented x3 and no apparent distress General Appearance: cooperative HEENT normocephalic and moist oral mucous membranes Eyes PERRL, EOMs intact bilaterally and conjunctivae normal Neck supple and no JVD Resp normal respiratory effort, no retractions, no use of accessory muscles and clear to auscultation bilaterally Auscultation: Negative for crackles, rales, rhonchi or wheezes Cardio regular rate, regular rhythm, S1 normal heart sound, S2 normal heart sound and no murmurs GI soft to palpation, non-tender and non-distended; Negative for hepatosplenomegaly Extremity General Extremity: edema Skin Skin Narrative: Bilateral lymphedema with a decubitus ulcer of the sacrum Neuro no focal motor deficits and no sensory deficits noted Psych affect normal Appearance: appropriate Assessment & Plan Assessment/Plan (1) Acute renal failure: QUALIFIERS: Acute renal failure type: unspecified Qualified Code(s): N17.9 - Acute kidney failure, unspecified (2) CKD stage 4 due to type 1 diabetes mellitus: (3) COPD exacerbation: (4) CHF exacerbation: QUALIFIERS: Heart failure type: diastolic Qualified Code(s): I50.33 - Acute on chronic diastolic (congestive) heart failure PLAN: 1. Acute on chronic hypoxic respiratory failure due to COPD exacerbation and CHF exacerbation: Patient is being admitted in PCU directly from [facility]. Patient was accepted by my colleague on the PCU floor. ABG, D- dimer and BiPAP ordered stat. DuoNeb stat. 08/11: ABG was reviewed yesterday on 08/10. 7.40/43/133 on BiPAP suggestive of hypo mary. No hypercarbia. D-dimer was elevated. Venous duplex was negative for DVT. Furthermore VQ scan was done which reported low probability of PE. Chest x-ray shows increased bronchovascular markings, congestion suggestive of pulmonary edema. 08/12: Patient remains intermittently on BiPAP and nasal cannula. Currently on 3 L of oxygen. Labored breathing. 08/13/2021: Continue with IV diuresis 08/14/2021: Continue with IV diuresis, his creatinine is stable appreciate nephrology's assistance 2. MSSA bacteremia: During admission in June 2020, SHLOMO because of MSSA bacteremia in June 2019 did not show any vegetation reported normal mitral tricuspid valve. Mild diffuse aortic valve thickening. At that time patient was treated with IV cefazolin. This time prelim blood cultures x2 shows a stap h, mec-A not detected most likely MSSA. Discussed with ID and requested consult. You will start on IV cefepime. Patient completed 3 doses of Zithromax. ID recommended SHLOMO which is ordered. Patient also had left pain and left shoulder replacement in the past therefore x-rays of left shoulder and left knee ordered. No official report pending. I individually reviewed the x-rays and does not seem to have acute abnormality on my individual review. Reviewed blood culture from 08/11 shows gram-positive cocci. 08/12: Discussed with ID. Agreed with SHLOMO tomorrow AM. There is tenderness over left knee. Patient had left shoulder replacement and ROM is very restricted/limited. X-ray of 08/13/2021: SHLOMO was negative for any valvular vegetations. We will continue with IV antibiotics per ID. He did have an MSSA bacteremia back in June etiology this time is likely the decubitus ulcer. Appreciate ID assistance 08/15/2021: Blood cultures are continue to come back positive we will recheck another 1 today we will discuss the situation with ID tomorrow when they are in the hospital 3. Acute on chronic HFpEF/second-degree AV block with A-V dissociation: Patient had last echo in June 2021 shows EF 65%, stage I diastolic dysfunction. Study was technically difficult due to body habitus and valves could not be well visualized. Heart failure core measures including intake and output, fluid re striction less than 1500 mL, daily weight monitoring, kidney and electrolytes monitoring. Serial troponins ordered. On Lasix drip. 08/11: Patient was a started on Lasix drip by my colleague last night. [id number] Administrator consult reviewed. 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 Peak creatinine was 3.6 slowly trending down. Serial troponins negative. ACS ruled out. TSH normal. 08/13/2021: Overnight he had episodes of V. tach, cardiology evaluated the strips and felt that he had a second-degree AV block with A-V dissociation. We will stop beta-blockers and consult cardiology for continued management while inpatient 08/14/2021: No abnormal rhythms overnight, cardiology is following and will likely need a pacemaker placed after he has cleared the infections which can likely be in several weeks. 4. Possible COPD exacerbation: Patient never had PFT done last discharge was advised to follow-up in pulmonary clinic but patient never made it. Patient has been never a smoker. DuoNeb every 4 hourly. IV Solu-Medrol, incentive spirometry, Pep ordered. Chest x-ray from outside reviewed and reported as low lung volume with bilateral perihilar haziness possible central pulmonary congestion or atypical pneumonia. Left perihilar through lower lobe fibrosis. 5. Acute kidney injury on CKD G4: Recent renal ultrasound unremarkable. [place] renal biopsy in [place] [id number]. 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 As Xarelto is more renally excreted therefore will change to Eliquis. 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 Peak creatinine was 3.6 trending down. Lasix drip increased to 20 mg/h. Metolazone was added. Monitor intake and output. Previous emesis and Bactrim might be the source for postinfectious glomerulonephritis. 08/13/2021: I will continue to monitor function, it is stable currently continue with IV diuresis 6. Chronic normocytic anemia-patient hemoglobin is 8.1. Patient hemoglobin has been between 7.5-8.2 recently in July 2021. Last 1 in our system 7.6 on 07/20. Continue PPI. Stool positive for occult blood 07/14/21. Monitor CBC 08/12: Troponin globin from 7.5-7.0. Low-dose Eliquis 2.5 mg twice daily discont inued. Bilateral SCDs. Stool for occult blood ordered. Monitor H&H in the evening. Monitor CBC daily. 7. Type 2 diabetes [id number] ACH coverage Humalog sliding scale continue home insulin regimen. We will monitor and make adjustments as necessary 8. Obesity hypoventilation syndrome/probable NILDA: The patient will need formal pulmonary clinic evaluation for PFT and sleep study. Continue BiPAP 9. Debility/failure to thrive, very limited ADL, morbid obesity-PT OT evaluation. DVT: SCDs, stool occult is positive for blood so we will hold off on chemical prophylaxis Charges/Coding Visit Charges Inpatient E&M: 13777 Subs Hosp L2
--- NOTE | 2021-08-15 12:34 | PCM.PN.REN ---
Subjective Subjective Following for acute kidney injury on chronic kidney disease. The patient denies increasing shortness of breath. There is no chest pain, nausea, vomiting. Objective Data Objective Data Vital Signs: Vital Signs Temp Pulse Resp BP Pulse Ox 98.1 F 57 L 20 H 120/48 L 98 08/15/21 10:30 08/15/21 11:00 08/15/21 10:30 08/15/21 10:30 08/15/21 11:10 Oxygen Flow Rate (L/min) 2 Oxygen Delivery Method Nasal Cannula Weight: 161.3 kg Body Mass Index (BMI) 56.7 Intake & Output: Intake and Output for Last 24 Hours 08/13/21 08/14/21 08/15/21 23:59 23:59 23:59 Intake Total 1403.37 / 1603.37 1126.6 / 1326.6 780 / 780 Output Total 3450 / 3750 3000 / 3600 3000 / 3000 Balance -2046.63 / -2146.63 -1873.4 / -2273.4 -2220 / -2220 Lab / Micro Data Result Diagrams: 08/15/21 05:34 08/15/21 05:34 Labs: Laboratory Results - last 24 hr 08/14/21 16:14: POC Glucose 131 H 08/14/21 21:46: POC Glucose 125 H 08/15/21 05:34: Sodium 135 L, Potassium 3.7, Chloride 97 L, Carbon Dioxide 30.0, Anion Gap 8, BUN 90 H, Creatinine 2.13 H, Estim Creat Clear Calc 30.60, Est GFR (MDRD) Af Amer 40 L, Est GFR (MDRD) Non-Af 33 L, BUN/Creatinine Ratio 42.3 H, Glucose 157 H, Calcium 9.0 08/15/21 05:34: WBC 13.4 H, RBC 3.01 L, Hgb 7.8 L, Hct 25.8 L, MCV 85.7, MCH 25.9 L, MCHC 30.2 L, RDW Std Deviation 58.1 H, RDW Coeff of Jory 18.9 H, Plt Count 323, MPV 10.2, Neut % (Auto) Not Reportable, Absolute Neuts (auto) 11.0 H, Absolute Lymphs (auto) 0.67 L, Total Counted 100, Neutrophils % (Manual) 80 H, Band Neutrophils % 2, Lymphocytes % (Manual) 5 L, Monocytes % (Manual) 4, Eosinophils % (Manual) 4, Myelocytes % 5 H, Nucleated RBCs/100 WBC 2, Diff Path Review August, Platelet Estimate ADEQUATE, Anisocytosis 2+ 08/15/21 08:23: POC Glucose 142 H Micro: Microbiology 08/12/21 10:16 Blood Culture (Wb) - Right Hand Blood Culture - Preliminary 08/13/21 08:20 Blood Culture (Wb) - Other Blood Culture - Preliminary Staphylococcus aureus 08/10/21 18:54 Blood Culture (Wb) - Other Blood Culture - Final Staphylococcus aureus 08/11/21 12:15 Blood Culture (Wb) - Right Hand Blood Culture - Final Staphylococcus aureus 08/10/21 15:29 Blood Culture (Wb) - Other Bacteria Detection (PCR) - Final Staphylococcus aureus 08/10/21 15:29 Blood Culture (Wb) - Other Blood Culture - Final Staphylococcus aureus 08/10/21 14:25 Urine Catheter - Franco Urine Culture - Final Escherichia coli Staphylococcus aureus 08/12/21 18:02 Stool Stool Occult Blood (DAMIAN) - Final Occult Blood Positive 08/12/21 10:00 Nasal Secretion SARS-CoV-2 Antigen (Rapid) - Final 08/10/21 13:45 Mucosa - Nasopharyngeal Respiratory Panel (PCR) - Final Physical Exam Narrative General: Alert and oriented x3. No apparent distress. HEENT: Normocephalic, atraumatic. PERRLA, EOMI. Mucous membrane moist. Heart: Normal S1, S2. No rubs, murmurs or gallops. Lungs: Clear to auscultation anteriorly. Abdomen: Obese, normal bowel sound, soft, nontender, no guarding or rebound. Extremities: Lower extremities wrapped in Giuseppe bandage. There is 2+ edema in the lower extremities. Assessment & Plan Assessment/Plan (1) GAYE (acute kidney injury): PLAN: - The patient has normal baseline kidney function. His serum creatinine was 0.95 mg/dL on 06/21/2021. 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 -Serum creatinine peaked at 3.60 mg/dL in July with gradual improvement. -The patient is admitted again on 08/11/2021 with volume overload/heart failure with preserved ejection fraction exacerbation. So, there may be some component of GAYE from cardiorenal syndrome as well. -Despite starting furosemide drip, renal function has stabilized. Serum creatinine is 2.13 mg/dL today and was 2.37 mg/dL on 08/13/2021. -Continue furosemide drip with careful monitoring of renal function, volume status, and electrolytes. -There is no need for kidney replacement therapy. -Current medications are reviewed and are appropriately dosed for his estimated GFR. (2) Anemia: PLAN: - The patient likely has anemia of chronic disease. -Unfortunately, there is no role for MERLIN in the setting of GAYE. -Hemoglobin did drop to 7.8 g/dL from 8.4 g/dL yesterday. -Continue to monitor hemoglobin and transfuse if less than 7 g/dL. (3) Acute on chronic respiratory failure with hypoxia: PLAN: - The patient has multifactorial explanations for acute hypoxic respiratory failure. -He has exacerbation of heart failure with preserved ejection fraction, acute kidney injury predisposing volume overload, and possible COPD. -The patient is being treated with furosemide drip for volume control. -He is also on bronchodilator as per hospital medicine service. (4) Bacteremia: PLAN: -The patient has persistent MSSA bacteremia. -The patient is status post left shoulder arthrocentesis. I believe culture from joint aspiration is still pending. -The patient is on cefepime. Dose of cefepime should be adjusted for decreased renal function. He is currently getting 2 g of cefepime every 12 hours. If this is the intended dose for creatinine clearance of greater than 60 mL/min, I would recommend reducing the dose to 1 g every 12 hours since his creatinine clearance is around 34 mL/min. However, if the intended dose for patient with creatinine clearance of greater than 60 mL/min is 2 g every 8 hours, the current dose is the correct dose.
[2021-08-15 12:41] LABS: Bedside Glucose 150 mg/dL (74-106)
[2021-08-15] MEDS: Furosemide 500 MG in Empty Viaflex 50 mL 1 EACH CONT INF (16:10)
[2021-08-15 16:36] LABS: Bedside Glucose 222 mg/dL (74-106)
[2021-08-15] MEDS: Latanoprost 0.005% 1 Bottle 1 DRP EACH EYE (21:19)
[2021-08-15] MEDS: 0.9% Saline Lock 10 ML Syringe IV (21:39)
[2021-08-15 21:46] LABS: Bedside Glucose 166 mg/dL (74-106)
[2021-08-16] VITALS (14 sets, daily range): BP systolic 103–119; BP diastolic 45–71; PULSE 51–61; RESP 14–26; TEMP 36.3–37.1; O2SAT 92–100
[2021-08-16] MEDS: Levothyroxine 25 MCG TABLET PO (05:23)
[2021-08-16 06:20] LABS: Hematocrit 24.6 % (40-54); Hemoglobin 7.8 g/dL (13.0-16.5); Mean Corp Hgb Conc 31.7 g/dL (32-36); Mean Corpuscular Hgb 26.3 pg (27.0-32.0); Mean Corpuscular Volume 82.8 fL (80-94); Mean Platelet Vol. 10.3 fl (6.2-12.0); POSITIVE COUNT YES; POSITIVE MORPHOLOGY YES; Platelet Count 181 K/mm3 (150-450); RBC Distribution Width CV 19.3 % (11.6-14.6); Red Blood Count 2.97 M/mm3 (4.6-6.2); White Blood Count 15.3 K/mm3 (4.4-11.0)
[2021-08-16 06:39] LABS: Eosinophil 2 % (0-5); Lymphocyte 3 % (19-41); Metamyelocyte 6 % (0-1); Monocyte 4 % (0-10); Myelocyte 2 % (0-0); Neutrophil-Band 1 % (0-5); Neutrophil-Segmented 82 % (47-70); Nucleated Red Bld Cells,Manual 1 % (0-5); Total Cells Counted 100 (MANUAL DIFF)
[2021-08-16 06:41] LABS: Differential Indicated MANUAL DIFF
[2021-08-16 06:42] LABS: Absolute Lymphocyte Count 0.46 X10^3/uL (0.83-4.51); Absolute Neutrophil Count 13.9 X10^3/uL (2.0-7.7); Lymphocyte # 0.46 X10^3/ul (0.83-4.51); Neutrophil # 13.94 X10^3/uL (2.7-7.7)
[2021-08-16 06:43] LABS: Platelet Estimate ADEQUATE (ADEQ)
[2021-08-16 06:45] LABS: Anion Gap 7 (5-15); BUN 95 mg/dL (7-18); BUN/Creat Ratio 46.1 RATIO (10-20); Calcium,Total 8.6 mg/dL (8.5-10.1); Chloride 98 mmol/L (98-107); Creatinine, Serum 2.06 mg/dL (0.70-1.30); EST Glomerular Filtration Rate 34 mL/min (>60); Est Glom Filt Rate - Afr Amer 41 mL/min (>60); Estimated Creatinine Clearance 31.64 ml/min; Glucose 139 mg/dL (74-106); Potassium 3.5 mmol/L (3.5-5.1); Sodium Level 134 mmol/L (136-145)
[2021-08-16 06:46] LABS: Polychromasia RARE; Target Cells RARE
[2021-08-16] MEDS: Ipratropium/Albuterol Sulfate 3 ML AMPUL.NEB INHALATION ×4 (06:53→19:28)
[2021-08-16 07:56] LABS: Bedside Glucose 139 mg/dL (74-106)
--- NOTE | 2021-08-16 08:52 | CASEMGMT ---
MIMI faxed updates to [facility]. Leslie Caldera BIOLOGICAL SCIENTIST LIANA
[2021-08-16] MEDS: Menthol/Lanolin/Calamine/Znox 113 GM Tube 1 APPLIC TOPICAL ×2 (08:59→21:34)
[2021-08-16] MEDS: Insulin Lispro 100 UNIT/ML INSULN.PEN SC ×4 (09:00→21:30)
[2021-08-16] MEDS: guaiFENesin 1,200 MG Tablet 1200 MG PO ×2 (09:00→21:32)
--- NOTE | 2021-08-16 09:04 | PCM.PN.HOSP ---
Subjective Subjective About the same, breathing is improved, creatinine is also improving. Objective Data Objective Data Vital Signs: Vital Signs Temp Pulse Resp BP Pulse Ox 97.8 F 51 L 24 H 103/71 100 08/16/21 03:00 08/16/21 07:00 08/16/21 06:54 08/16/21 03:00 08/16/21 06:54 Oxygen Flow Rate (L/min) 2 Oxygen Delivery Method Bi-pap Weight: 355 lb 2.635 oz Body Mass Index (BMI) 56.7 Intake & Output: Intake and Output for Last 24 Hours 08/15/21 08/16/21 08/17/21 03:59 03:59 03:59 Intake Total 1126.6 / 1126.6 1156 / 1156 120 / 120 Output Total 3300 / 3300 4025 / 4025 225 / 225 Balance -2173.4 / -2173.4 -2869 / -2869 -105 / -105 Lab / Micro Data Result Diagrams: 08/16/21 06:00 08/16/21 06:00 Labs: Laboratory Results - last 24 hr 08/15/21 12:20: POC Glucose 150 H 08/15/21 16:08: POC Glucose 222 H 08/15/21 21:18: POC Glucose 166 H 08/16/21 06:00: Sodium 134 L, Potassium 3.5, Chloride 98, Carbon Dioxide 29.0, Anion Gap 7, BUN 95 H, Creatinine 2.06 H, Estim Creat Clear Calc 31.64, Est GFR (MDRD) Af Amer 41 L, Est GFR (MDRD) Non-Af 34 L, BUN/Creatinine Ratio 46.1 H, Glucose 139 H, Calcium 8.6 08/16/21 06:00: WBC 15.3 H, RBC 2.97 L, Hgb 7.8 L, Hct 24.6 L, MCV 82.8, MCH 26.3 L, MCHC 31.7 L, RDW Std Deviation 57.0 H, RDW Coeff of Jory 19.3 H, Plt Count 181, MPV 10.3, Neut % (Auto) Not Reportable, Absolute Neuts (auto) 13.9 H, Absolute Lymphs (auto) 0.46 L, Total Counted 100, Neutrophils % (Manual) 82 H, Band Neutrophils % 1, Lymphocytes % (Manual) 3 L, Monocytes % (Manual) 4, Eosinophils % (Manual) 2, Metamyelocytes % 6 H, Myelocytes % 2 H, Nucleated RBCs/100 WBC 1, Diff Path Review May foll, Platelet Estimate ADEQUATE, Polychromasia RARE, Target Cells RARE 08/16/21 07:51: POC Glucose 139 H Micro: Microbiology 08/14/21 06:50 Blood Culture (Wb) - Right Hand Blood Culture - Preliminary No growth in 48 hours. 08/13/21 08:20 Blood Culture (Wb) - Other Blood Culture - Preliminary Staphylococcus aureus 08/12/21 10:16 Blood Culture (Wb) - Right Hand Blood Culture - Preliminary Staphylococcus aureus 08/10/21 18:54 Blood Culture (Wb) - Other Blood Culture - Final Staphylococcus aureus 08/11/21 12:15 Blood Culture (Wb) - Right Hand Blood Culture - Final Staphylococcus aureus 08/10/21 15:29 Blood Culture (Wb) - Other Bacteria Detection (PCR) - Final Staphylococcus aureus 08/10/21 15:29 Blood Culture (Wb) - Other Blood Culture - Final Staphylococcus aureus 08/10/21 14:25 Urine Catheter - Franco Urine Culture - Final Escherichia coli Staphylococcus aureus 08/12/21 18:02 Stool Stool Occult Blood (DAMIAN) - Final Occult Blood Positive 08/12/21 10:00 Nasal Secretion SARS-CoV-2 Antigen (Rapid) - Final 08/10/21 13:45 Mucosa - Nasopharyngeal Respiratory Panel (PCR) - Final Physical Exam Narrative Const alert, oriented x3 and no apparent distress General Appearance: cooperative HEENT normocephalic and moist oral mucous membranes Eyes PERRL, EOMs intact bilaterally and conjunctivae normal Neck supple and no JVD Resp normal respiratory effort, no retractions, no use of accessory muscles and clear to auscultation bilaterally Auscultation: Diminished lung sounds, negative for crackles, rales, rhonchi or wheezes Cardio regular rate, regular rhythm, S1 normal heart sound, S2 normal heart sound and no murmurs GI soft to palpation, non-tender and non-distended; Negative for hepatosplenomegaly Extremity General Extremity: edema Skin Skin Narrative: Bilateral lymphedema with a decubitus ulcer of the sacrum Neuro no focal motor deficits and no sensory deficits noted Psych affect normal Appearance: appropriate Assessment & Plan Assessment/Plan (1) Acute renal failure: QUALIFIERS: Acute renal failure type: unspecified Qualified Code(s): N17.9 - Acute kidney failure, unspecified (2) CKD stage 4 due to type 1 diabetes mellitus: (3) COPD exacerbation: (4) CHF exacerbation: QUALIFIERS: Heart failure type: diastolic Qualified Code(s): I50.33 - Acute on chronic diastolic (congestive) heart failure PLAN: 1. Acute on chronic hypoxic respiratory failure due to COPD exacerbation and CHF exacerbation: Patient is being admitted in PCU directly from [facility]. Patient was accepted by my colleague on the PCU floor. ABG, D-dimer and BiPAP ordered stat. DuoNeb stat. 08/11: ABG was reviewed yesterday on 08/10. 7.40/43/133 on BiPAP suggestive of hypoxia. No hypercarbia. D-dimer was elevated. Venous duplex was negative for DVT. Furthermore VQ scan was done which reported low probability of PE. Chest x-ray shows increased bronchovascular markings, congestion suggestive of pulmonary edema. 08/12: Patient remains intermittently on BiPAP and nasal cannula. Currently on 3 L of oxygen. Labored breathing. 08/13/2021: Continue with IV diuresis 08/14/2021: Continue with IV diuresis, his creatinine is stable appreciate nephrology's assistance 08/16/2021: Creatinine is improving with the IV diuresis as is his shortness of breath therefore we will continue. Appreciate cardiology's assistance 2. MSSA bacteremia: During admission in June 2020, SHLOMO because of MSSA bacteremia in June 2019 did not show any vegetation reported normal mitral tricuspid valve. Mild diffuse aortic valve thickening. At that time patient was treated with IV cefazolin. This time prelim blood cultures x2 shows a staph, mec-A not detected most likely MSSA. Discussed with ID and requested consult. You will start on IV cefepime. Patient completed 3 doses of Zithromax. ID recommended SHLOMO which is ordered. Patient also had left pain and left shoulder replacement in the past therefore x-rays of left shoulder and left knee ordered. No official report pending. I individually reviewed the x-rays and does not seem to have acute abnormality on my individual review. Reviewed blood culture from 08/11 shows gram-positive cocci. 08/12: Discussed with ID. Agreed with SHLOMO tomorrow AM. There is tenderness over left knee. Patient had left shoulder replacement and ROM is very restricted/limited. X-ray of 08/13/2021: SHLOMO was negative for any valvular vegetations. We will continue with IV antibiotics per ID. He did have an MSSA bacteremia back in June etiology this time is likely the decubitus ulcer. Appreciate ID assistance 08/15/2021: Blood cultures are continue to come back positive we will recheck another 1 today we will discuss the situation with ID tomorrow when they are in the hospital 08/16/2021: Blood cultures from 08/14/2021 are negative, cultures from 08 15 are still pending. Continue with cefepime at this time. Cultures from [facility] demonstrate beta-lactamase resistance and the MSSA that they had gotten on their cultures. 3. Acute on chronic HFpEF/second-degree AV block with A-V dissociation: Patient had last echo in June 2021 shows EF 65%, stage I diastolic dysfunction. Study was technically difficult due to body habitus and valves could not be well visualized. Heart failure core measures including intake and output, fluid restriction less than 1500 mL, daily weight monitoring, kidney and electrolytes monitoring. Serial troponins ordered. On Lasix drip. 08/11: Patient was a started on Lasix drip by my colleague last night. Neurosurgical Nurse Practitioner consult reviewed. 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 Peak creatinine was 3.6 slowly trending down. Serial troponins negative. ACS ruled out. TSH normal. 08/13/2021: Overnight he had episodes of V. tach, cardiology evaluated the strips and felt that he had a second-degree AV block with A-V dissociation. We will stop beta-blockers and consult cardiology for continued management while inpatient 08/14/2021: No abnormal rhythms overnight, cardiology is following and will likely need a pacemaker placed after he has cleared the infections which can likely be in several weeks. 4. Possible COPD exacerbation: Patient never had PFT done last discharge was advised to follow-up in pulmonary clinic but patient never made it. Patient has been never a smoker. DuoNeb every 4 hourly. IV Solu-Medrol, incentive spirometry, Pep ordered. Chest x-ray from outside reviewed and reported as low lung volume with bilateral perihilar haziness possible central pulmonary congestion or atypical pneumonia. Left perihilar through lower lobe fibrosis. 5. Acute kidney injury on CKD G4: Recent renal ultrasound unremarkable. Patient recently had renal biopsy in [facility] 7. 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 As Xarelto is more renally excreted therefore will change to Eliquis. 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 Peak creatinine was 3.6 trending down. Lasix drip increased to 20 mg/h. Metolazone was added. Monitor intake and output. Previous emesis and Bactrim might be the source for postinfectious glomerulonephritis. 08/13/2021: I will continue to monitor function, it is stable currently continue with IV diuresis 6. Chronic normocytic anemia-patient hemoglobin is 8.1. Patient hemoglobin has been between 7.5-8.2 recently in July 2021. Last 1 in our system 7.6 on 07/20. Continue PPI. Stool positive for occult blood 07/14/21. Monitor CBC 08/12: Troponin globin from 7.5-7.0. Low-dose Eliquis 2.5 mg twice daily discontinued. Bilateral SCDs. Stool for occult blood ordered. Monitor H&H in the evening. Monitor CBC daily. 08/16/2021: Gastroenterology was consulted and wanted to hold off on any type of EGD given all of his other medical issues at this time. We will continue to monitor CBC 7. Type 2 diabetes lrilfsat-Sguo-Iljsf ACH coverage Humalog sliding scale continue home insulin regimen. We will monitor and make adjustments as necessary 8. Obesity hypoventilation syndrome/probable NILDA: The patient will need formal pulmonary clinic evaluation for PFT and sleep study. Continue BiPAP 9. Debility/failure to thrive, very limited ADL, morbid obesity-PT OT evaluation. DVT: SCDs, stool occult is positive for blood so we will hold off on chemical prophylaxis Charges/Coding Visit Charges Inpatient E&M: 88627 Subs Hosp L2
--- NOTE | 2021-08-16 09:31 | PCM.PN.REN ---
Subjective Subjective Sitting up in bed eating breakfast, no complaints. Objective Data Objective Data Vital Signs: Vital Signs Temp Pulse Resp BP Pulse Ox 97.8 F 51 L 24 H 103/71 100 08/16/21 03:00 08/16/21 07:00 08/16/21 06:54 08/16/21 03:00 08/16/21 06:54 Oxygen Flow Rate (L/min) 2 Oxygen Delivery Method Bi-pap Weight: 161.1 kg Body Mass Index (BMI) 56.7 Intake & Output: Intake and Output for Last 24 Hours 08/14/21 08/15/21 08/16/21 23:59 23:59 23:59 Intake Total 1126.6 / 1326.6 1156 / 1356 320 / 320 Output Total 3000 / 3600 3575 / 4075 1275 / 1275 Balance -1873.4 / -2273.4 -2419 / -2719 -955 / -955 Lab / Micro Data Result Diagrams: 08/16/21 06:00 08/16/21 06:00 Labs: Laboratory Results - last 24 hr 08/15/21 12:20: POC Glucose 150 H 08/15/21 16:08: POC Glucose 222 H 08/15/21 21:18: POC Glucose 166 H 08/16/21 06:00: Sodium 134 L, Potassium 3.5, Chloride 98, Carbon Dioxide 29.0, Anion Gap 7, BUN 95 H, Creatinine 2.06 H, Estim Creat Clear Calc 31.64, Est GFR (MDRD) Af Amer 41 L, Est GFR (MDRD) Non-Af 34 L, BUN/Creatinine Ratio 46.1 H, Glucose 139 H, Calcium 8.6 08/16/21 06:00: WBC 15.3 H, RBC 2.97 L, Hgb 7.8 L, Hct 24.6 L, MCV 82.8, MCH 26.3 L, MCHC 31.7 L, RDW Std Deviation 57.0 H, RDW Coeff of Jory 19.3 H, Plt Count 181, MPV 10.3, Neut % (Auto) Not Reportable, Absolute Neuts (auto) 13.9 H, Absolute Lymphs (auto) 0.46 L, Total Counted 100, Neutrophils % (Manual) 82 H, Band Neutrophils % 1, Lymphocytes % (Manual) 3 L, Monocytes % (Manual) 4, Eosinophils % (Manual) 2, Metamyelocytes % 6 H, Myelocytes % 2 H, Nucleated RBCs/100 WBC 1, Diff Path Review August foll, Platelet Estimate ADEQUATE, Polychromasia RARE, Target Cells RARE 08/16/21 07:51: POC Glucose 139 H Micro: Microbiology 08/14/21 06:50 Blood Culture (Wb) - Right Hand Blood Culture - Preliminary No growth in 48 hours. 08/13/21 08:20 Blood Culture (Wb) - Other Blood Culture - Preliminary Staphylococcus aureus 08/12/21 10:16 Blood Culture (Wb) - Right Hand Blood Culture - Preliminary Staphylococcus aureus 08/10/21 18:54 Blood Culture (Wb) - Other Blood Culture - Final Staphylococcus aureus 08/11/21 12:15 Blood Culture (Wb) - Right Hand Blood Culture - Final Staphylococcus aureus 08/10/21 15:29 Blood Culture (Wb) - Other Bacteria Detection (PCR) - Final Staphylococcus aureus 08/10/21 15:29 Blood Culture (Wb) - Other Blood Culture - Final Staphylococcus aureus 08/10/21 14:25 Urine Catheter - [place] Urine Culture - Final Escherichia coli Staphylococcus aureus 08/12/21 18:02 Stool Stool Occult Blood (DAMIAN) - Final Occult Blood Positive 08/12/21 10:00 Nasal Secretion SARS-CoV-2 Antigen (Rapid) - Final 08/10/21 13:45 Mucosa - Nasopharyngeal Respiratory Panel (PCR) - Final Physical Exam Narrative Const: A&Ox3 HEENT: PERRLA, oral mucosa moist Cardio: S1 S2 RRR Resp: LS Clear anteriorly, diminished breath sounds posterior bases. No rales or rhonchi Extremities: SHELLI wrap on b/l legs, edema to b/l legs thibodeaux with clear, straw color urine in bag Assessment & Plan Assessment/Plan (1) GAYE (acute kidney injury): PLAN: - The patient has normal baseline kidney function. His serum creatinine was 0.95 mg/dL on 06/21/2021. 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 -Serum creatinine peaked at 3.60 mg/dL in July with gradual improvement. -The patient admitted again on 08/11/2021 with volume overload/heart failure with preserved ejection fraction exacerbation. So, there may be some component of GAYE from cardiorenal syndrome as well. -Despite starting furosemide drip, renal function has stabilized. Serum creatinine is 2.06mg/dL today and was 2.78 mg/dL on 08/11/2021. -Continue furosemide drip with careful monitoring of renal function, volume status, and electrolytes. -Overall renal function and volume status is improving. There is no need for kidney replacement therapy. (2) Anemia: PLAN: - The patient likely has anemia of chronic disease. -Unfortunately, there is no role for MERLIN in the setting of GAYE. -Hemoglobin did drop to 7.8 g/dL from 8.4 g/dL yesterday. -Continue to monitor hemoglobin and transfuse if less than 7 g/dL. (3) Acute on chronic respiratory failure with hypoxia: PLAN: - The patient has multifactorial explanations for acute hypoxic respiratory failure. -He has exacerbation of heart failure with preserved ejection fraction, acute kidney injury predisposing volume overload, and possible COPD. -The patient is being treated with furosemide drip for volume control. Cumulative output 10L, current weight 160kg (peak wt ~180kg). Continue FR. Continue lasix gtt. (4) Bacteremia: PLAN: -The patient has persistent MSSA bacteremia. BC from 08/14 so far no growth, BC from 08/15 pending. -The patient is status post dry left shoulder aspiration; s/p drain aspiration left knee 08/13/2021. Suspicion for left knee septic arthritis low. SHLOMO negative for valvular vegetations. -The patient is on cefepime. Dose of cefepime should be adjusted for decreased renal function. He is currently getting 2 g of cefepime every 12 hours. If this is the intended dose for creatinine clearance of greater than 60 mL/min, I would recommend reducing the dose to 1 g every 12 hours since his creatinine clearance is around 34 mL/min. However, if the intended dose for patient with creatinine clearance of greater than 60 mL/min is 2 g every 8 hours, the current dose is the correct dose.
[2021-08-16 13:05] LABS: Bedside Glucose 182 mg/dL (74-106)
[2021-08-16 13:10] LABS: Pathologist Review Reviewed
[2021-08-16 13:10] LABS: Pathologist Review Reviewed
[2021-08-16 13:10] LABS: Pathologist Review Reviewed
--- NOTE | 2021-08-16 13:23 | WOUNDNOTE ---
wound photo: sacrum
[2021-08-16] MEDS: Acetaminophen 325 MG Tablet 650 MG PO ×2 (14:12→21:46)
[2021-08-16] MEDS: Furosemide 500 MG in Empty Viaflex 50 mL 1 EACH CONT INF (15:06)
[2021-08-16 17:05] LABS: Bedside Glucose 146 mg/dL (74-106)
[2021-08-16] MEDS: Latanoprost 0.005% 1 Bottle 1 DRP EACH EYE (21:31)
[2021-08-16 22:26] LABS: Bedside Glucose 169 mg/dL (74-106)
[2021-08-17] VITALS (16 sets, daily range): BP systolic 95–118; BP diastolic 48–63; PULSE 50–61; RESP 14–22; TEMP 36.3–36.8; O2SAT 96–100
[2021-08-17] MEDS: Levothyroxine 25 MCG TABLET PO (05:13)
[2021-08-17] MEDS: 0.9% Saline Lock 10 ML Syringe IV ×2 (05:23→22:14)
[2021-08-17 05:35] LABS: Hematocrit 24.7 % (40-54); Hemoglobin 7.8 g/dL (13.0-16.5); Mean Corp Hgb Conc 31.6 g/dL (32-36); Mean Corpuscular Hgb 26.5 pg (27.0-32.0); Mean Platelet Vol. 9.9 fl (6.2-12.0); POSITIVE COUNT YES; POSITIVE MORPHOLOGY YES; Platelet Count 333 K/mm3 (150-450); RBC Distribution Width CV 19.1 % (11.6-14.6); RBC Distribution Width SD 57.1 fl (35.1-43.9); Red Blood Count 2.94 M/mm3 (4.6-6.2); White Blood Count 14.1 K/mm3 (4.4-11.0)
[2021-08-17 05:37] LABS: Differential Indicated MANUAL DIFF
[2021-08-17 05:54] LABS: Myelocyte 1 % (0-0); Neutrophil-Band 1 % (0-5); Neutrophil-Segmented 94 % (47-70); Total Cells Counted 100 (MANUAL DIFF)
[2021-08-17 05:55] LABS: Hypochromasia 1+; Lymphocyte 2 % (19-41); Monocyte 2 % (0-10); Platelet Estimate ADEQUATE (ADEQ); Red Cell Morphology N CYTIC NORMAL (NORM C&C)
[2021-08-17 05:56] LABS: Absolute Lymphocyte Count 0.28 X10^3/uL (0.83-4.51); Absolute Neutrophil Count 13.4 X10^3/uL (2.0-7.7); Lymphocyte # 0.28 X10^3/ul (0.83-4.51); Neutrophil # 13.41 X10^3/uL (2.7-7.7)
[2021-08-17 06:19] LABS: Anion Gap 8 (5-15); BUN 95 mg/dL (7-18); Calcium,Total 8.5 mg/dL (8.5-10.1); Chloride 97 mmol/L (98-107); Creatinine, Serum 2.11 mg/dL (0.70-1.30); EST Glomerular Filtration Rate 33 mL/min (>60); Est Glom Filt Rate - Afr Amer 40 mL/min (>60); Estimated Creatinine Clearance 30.89 ml/min; Glucose 124 mg/dL (74-106); Magnesium 1.4 mg/dL (1.6-2.6); Potassium 2.5 mmol/L (3.5-5.1); Sodium Level 138 mmol/L (136-145)
[2021-08-17] MEDS: Potassium Chloride Oral Tablet 20 MEQ 40 MEQ PO ×2 (06:47→16:22)
[2021-08-17] MEDS: Ipratropium/Albuterol Sulfate 3 ML AMPUL.NEB INHALATION ×3 (07:06→19:41)
[2021-08-17 08:20] LABS: Bedside Glucose 135 mg/dL (74-106)
[2021-08-17] MEDS: guaiFENesin 1,200 MG Tablet 1200 MG PO ×2 (08:23→22:15)
[2021-08-17] MEDS: Insulin Lispro 100 UNIT/ML INSULN.PEN SC ×2 (08:23→22:21)
[2021-08-17] MEDS: Menthol/Lanolin/Calamine/Znox 113 GM Tube 1 APPLIC TOPICAL ×2 (08:23→22:14)
--- NOTE | 2021-08-17 08:24 | PN.CARD_ITS ---
Subjective Subjective Patient seen and evaluated. Appears to be coughing less. Objective Data Vital Signs: Vital Signs Temp Pulse Resp BP Pulse Ox 98.2 F 54 L 20 H 104/56 L 100 08/17/21 08:20 08/17/21 08:20 08/17/21 08:20 08/17/21 08:20 08/17/21 08:20 Oxygen Flow Rate (L/min) 2 Oxygen Delivery Method Nasal Cannula Weight: 351 lb 10.197 oz Body Mass Index (BMI) 56.7 Intake & Output: Intake and Output for Last 24 Hours 08/15/21 08/16/21 08/17/21 23:59 23:59 23:59 Intake Total 1156 / 1356 1060.87 / 1160.87 300 / 300 Output Total 3575 / 4075 2075 / 2275 500 / 500 Balance -2419 / -2719 -1014.13 / -1114.13 -200 / -200 Lab / Micro Data Result Diagrams: 08/17/21 05:20 08/17/21 05:20 Labs: Laboratory Results - last 24 hr 08/14/21 06:50: Diff Path Review Reviewed 08/15/21 05:34: Diff Path Review Reviewed 08/16/21 06:00: Diff Path Review Reviewed 08/16/21 11:15: POC Glucose 182 H 08/16/21 16:59: POC Glucose 146 H 08/16/21 21:29: POC Glucose 169 H 08/17/21 05:20: Sodium 138, Potassium 2.5 L*, Chloride 97 L, Carbon Dioxide 33.0 H, Anion Gap 8, BUN 95 H, Creatinine 2.11 H, Estim Creat Clear Calc 30.89, Est GFR (MDRD) Af Amer 40 L, Est GFR (MDRD) Non-Af 33 L, BUN/Creatinine Ratio 45.0 H , Glucose 124 H, Calcium 8.5, Magnesium 1.4 L 08/17/21 05:20: WBC 14.1 H, RBC 2.94 L, Hgb 7.8 L, Hct 24.7 L, MCV 84.0, MCH 26.5 L, MCHC 31.6 L, RDW Std Deviation 57.1 H, RDW Coeff of Jory 19.1 H, Plt Count 333, MPV 9.9, Neut % (Auto) Not Reportable, Absolute Neuts (auto) 13.4 H, Absolute Lymphs (auto) 0.28 L, Total Counted 100, Neutrophils % (Manual) 94 H, Band Neutrophils % 1, Lymphocytes % (Manual) 2 L, Monocytes % (Manual) 2, Myelocytes % 1 H, Diff Path Review August, Platelet Estimate ADEQUATE, RBC Morphology N CYTIC, Hypochromasia 1+ 08/17/21 08:04: POC Glucose 135 H Micro: Microbiology 08/11/21 12:15 Blood Culture (Wb) - Right Hand Blood Culture - Final Staphylococcus aureus 08/14/21 06:50 Blood Culture (Wb) - Right Hand Blood Culture - Preliminary No growth in 48 hours. 08/13/21 08:20 Blood Culture (Wb) - Other Blood Culture - Preliminary Staphylococcus aureus 08/12/21 10:16 Blood Culture (Wb) - Right Hand Blood Culture - Preliminary Staphylococcus aureus Cardiology Labs/Tests 08/17/21 05:20: Sodium 138, Potassium 2.5 L*, Chloride 97 L, Carbon Dioxide 33.0 H, Anion Gap 8, BUN 95 H, Creatinine 2.11 H, Est GFR (MDRD) Af Amer 40 L, Est GFR (MDRD) Non-Af 33 L, BUN/Creatinine Ratio 45.0 H, Glucose 124 H, Calcium 8.5, Magnesium 1.4 L 08/17/21 05:20: WBC 14.1 H, RBC 2.94 L, Hgb 7.8 L, Hct 24.7 L, MCV 84.0, MCH 26.5 L, MCHC 31.6 L, Plt Count 333, MPV 9.9, Neut % (Auto) Not Reportable, Absolute Neuts (auto) 13.4 H, Total Counted 100, Neutrophils % (Manual) 94 H, Band Neutrophils % 1, Lymphocytes % (Manual) 2 L, Monocytes % (Manual) 2, Myelocytes % 1 H Rhythm: EKG: ECHO: Stress Test: Cardiac Cath: PCI: CT Surgery: Holter monitor: EPS: PPM: CXR: Chest CT Scan: Physical Exam Const alert, oriented x3 and no apparent distress General Appearance: cooperative HEENT hearing grossly normal bilaterally Eyes EOMs intact bilaterally Neck General: normal visual inspection Chest inspection of chest normal and palpation of chest normal Resp normal respiratory effort Effort and Inspection: decreased respiratory effort Auscultation: diminished lung sounds Cardio S1 normal heart sound and S2 normal heart sound Jugular Venous Distention: JVD Rhythm: abnormal rhythm irregularly irregular GI normal to inspection, nondistended, normoactive bowel sounds Extremity normal capillary refill and no pedal edema General Extremity: edema Skin no rashes or lesions noted Neuro oriented x3 and CN's II-XII intact bilaterally Psych Appearance: grossly normal and appropriate Assessment & Plan Assessment/Plan (1) CHF exacerbation: QUALIFIERS: Heart failure type: diastolic Qualified Code(s): I50.33 - Acute on chronic diastolic (congestive) heart failure PLAN: He does have an exacerbation of congestive heart failure. The above is likely secondary to diastolic dysfunction. I would recommend we continue the IV diuretics at this time. * He is also noted to be anemic and this may be contributing to some of his shortness of breath (2) Heart block AV second degree: PLAN: He does have intermittent second-degree heart block with A-V dissociation. Due to his bacteremia as well as his cellulitis and likely infection I do not think that he is a candidate for permanent pacemaker implantation. I would suggest that we hold off on giving any beta-qing and will pursue expectant management. * Ideally we would like to hold off until the patient has had appropriate antibiotics for the duration of time and has been free of any infection for 1 to 2 weeks before implanting any device * Will also suggest ID input regarding the above. His risk for an infection for an implanted device will be rather high at this time. * Hopefully with discontinuing his beta-qing his rhythm would continue to improve over time. (3) Bacteremia: PLAN: He does have bacteremia and the SHLOMO did not demonstrate any evidence of valvular vegetation. It appears that his bacteremia is from other sources rather than cardiac.
[2021-08-17] MEDS: Acetaminophen 325 MG Tablet 650 MG PO (08:25)
--- NOTE | 2021-08-17 08:47 | PN.HOSP_ITS ---
Subjective Subjective Denies any new complaints. Objective Data Objective Data Vital Signs: Vital Signs Temp Pulse Resp BP Pulse Ox 36.8 C 54 L 20 H 104/56 L 100 08/17/21 08:20 08/17/21 08:20 08/17/21 08:20 08/17/21 08:20 08/17/21 08:20 Oxygen Flow Rate (L/min) 2 Oxygen Delivery Method Nasal Cannula Weight: 159.5 kg Body Mass Index (BMI) 56.7 Intake & Output: Intake and Output for Last 24 Hours 08/15/21 08/16/21 08/17/21 23:59 23:59 23:59 Intake Total 1156 / 1356 1060.87 / 1160.87 300 / 300 Output Total 3575 / 4075 2075 / 2275 500 / 500 Balance -2419 / -2719 -1014.13 / -1114.13 -200 / -200 Lab / Micro Data Result Diagrams: 08/17/21 05:20 08/17/21 05:20 Labs: Laboratory Results - last 24 hr 08/14/21 06:50: Diff Path Review Reviewed 08/15/21 05:34: Diff Path Review Reviewed 08/16/21 06:00: Diff Path Review Reviewed 08/16/21 11:15: POC Glucose 182 H 08/16/21 16:59: POC Glucose 146 H 08/16/21 21:29: POC Glucose 169 H 08/17/21 05:20: Sodium 138, Potassium 2.5 L*, Chloride 97 L, Carbon Dioxide 33.0 H, Anion Gap 8, BUN 95 H, Creatinine 2.11 H, Estim Creat Clear Calc 30.89, Est GFR (MDRD) Af Amer 40 L, Est GFR (MDRD) Non-Af 33 L, BUN/Creatinine Ratio 45.0 H , Glucose 124 H, Calcium 8.5, Magnesium 1.4 L 08/17/21 05:20: WBC 14.1 H, RBC 2.94 L, Hgb 7.8 L, Hct 24.7 L, MCV 84.0, MCH 26.5 L, MCHC 31.6 L, RDW Std Deviation 57.1 H, RDW Coeff of Jory 19.1 H, Plt Count 333, MPV 9.9, Neut % (Auto) Not Reportable, Absolute Neuts (auto) 13.4 H, Absolute Lymphs (auto) 0.28 L, Total Counted 100, Neutrophils % (Manual) 94 H, Band Neutrophils % 1, Lymphocytes % (Manual) 2 L, Monocytes % (Manual) 2, Myelocytes % 1 H, Diff Path Review August, Platelet Estimate ADEQUATE, RBC Morphology N CYTIC, Hypochromasia 1+ 08/17/21 08:04: POC Glucose 135 H Micro: Microbiology 08/11/21 12:15 Blood Culture (Wb) - Right Hand Blood Culture - Final Staphylococcus aureus 08/14/21 06:50 Blood Culture (Wb) - Right Hand Blood Culture - Preliminary No growth in 48 hours. 08/13/21 08:20 Blood Culture (Wb) - Other Blood Culture - Preliminary Staphylococcus aureus 08/12/21 10:16 Blood Culture (Wb) - Right Hand Blood Culture - Preliminary Staphylococcus aureus 08/10/21 18:54 Blood Culture (Wb) - Other Blood Culture - Final Staphylococcus aureus 08/10/21 15:29 Blood Culture (Wb) - Other Bacteria Detection (PCR) - Final Staphylococcus aureus 08/10/21 15:29 Blood Culture (Wb) - Other Blood Culture - Final Staphylococcus aureus 08/10/21 14:25 Urine Catheter - Franco Urine Culture - Final Escherichia coli Staphylococcus aureus 08/12/21 18:02 Stool Stool Occult Blood (DAMIAN) - Final Occult Blood Positive 08/12/21 10:00 Nasal Secretion SARS-CoV-2 Antigen (Rapid) - Final 08/10/21 13:45 Mucosa - Nasopharyngeal Respiratory Panel (PCR) - Final Physical Exam Const alert and no apparent distress Resp normal respiratory effort, no retractions, no use of accessory muscles and clear to auscultation bilaterally Cardio regular rate, regular rhythm, S1 normal heart sound and S2 normal heart sound GI normal to inspection, nondistended, normoactive bowel sounds, soft to palpation, non-tender and non-distended Extremity normal to inspection Assessment & Plan Assessment/Plan (1) Acute renal failure: QUALIFIERS: Acute renal failure type: unspecified Qualified Code(s): N17.9 - Acute kidney failure, unspecified (2) CKD stage 4 due to type 1 diabetes mellitus: (3) COPD exacerbation: (4) CHF exacerbation: QUALIFIERS: Heart failure type: diastolic Qualified Code(s): I50.33 - Acute on chronic diastolic (congestive) heart failure PLAN: 1. Acute on chronic hypoxic respiratory failure due to COPD exacerbation and CHF exacerbation: * History: * 08/11: ABG was reviewed yesterday on 08/10. 7.40/43/133 on BiPAP suggestive of hypoxia. No hypercarbia. D-dimer was elevated. Venous duplex was negative for DVT. Furthermore VQ scan was done which reported low probability of PE. Chest x-ray shows increased bronchovascular markings, congestion suggestive of pulmonary edema. * 08/12: Patient remains intermittently on BiPAP and nasal cannula. Currently on 3 L of oxygen. Labored breathing. * 08/13/2021: Continue with IV diuresis * 08/14/2021: Continue with IV diuresis, his creatinine is stable appreciate nephrology's assistance * 08/16/2021: Creatinine is improving with the IV diuresis as is his shortness of breath therefore we will continue. 2. MSSA bacteremia: * During admission in June 2020, SHLOMO because of MSSA bacteremia in June 2019 did not show any vegetation reported normal mitral tricuspid valve. Mild diffuse aortic valve thickening. At that time patient was treated with IV cefazolin. * This time prelim blood cultures x2 shows a staph, mec-A not detected most likely MSSA. Discussed with ID and requested consult. * IV cefepime. Patient completed 3 doses of Zithromax. * SHLOMO on 08/13 negative for endocardititis * Patient also had left pain and left shoulder replacement in the past therefore x-rays of left shoulder and left knee ordered. Xray unremarkable for obvious osteomyelitis. * History * 08/12: Discussed with ID. Agreed with SHLOMO tomorrow AM. There is tenderness over left knee. Patient had left shoulder replacement and ROM is very restricted/limited. * 08/13/2021: SHLOMO was negative for any valvular vegetations. We will continue with IV antibiotics per ID. He did have an MSSA bacteremia back in June etiology this time is likely the decubitus ulcer. Appreciate ID assistance * 08/15/2021: Blood cultures are continue to come back positive we will recheck another 1 today we will discuss the situation with ID tomorrow when they are in the hospital * 08/16/2021: Blood cultures from 08/14/2021 are negative, cultures from 08 15 are still pending. Continue with cefepime at this time. Cultures from [facility] demonstrate beta-lactamase resistance and the MSSA that they had gotten on their cultures. 3. Acute on chronic HFpEF/second-degree AV block with A-V dissociation: * Patient had last echo in June 2021 shows EF 65%, stage I diastolic dysfunction. Study was technically difficult due to body habitus and valves could not be well visualized. Heart failure core measures including intake and output, fluid restriction less than 1500 mL, daily weight monitoring, kidney and electrolytes monitoring. Serial troponins ordered. * On Lasix drip. * History: * 08/11: Patient was a started on Lasix drip by my colleague last night. [employer] consult reviewed. 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 Peak creatinine was 3.6 slowly trending down. Serial troponins negative. ACS ruled out. TSH normal. * 08/13/2021: Overnight he had episodes of V. tach, cardiology evaluated the strips and felt that he had a second-degree AV block with A-V dissociation. We will stop beta-blockers and consult cardiology for continued management while inpatient * 08/14/2021: No abnormal rhythms overnight, cardiology is following and will likely need a pacemaker placed after he has cleared the infections which can likely be in several weeks. 4. Possible COPD exacerbation: * Patient never had PFT done last discharge was advised to follow-up in pulmonary clinic but patient never made it. Patient has been never a smoker. 5. Hypokalemia * replace * complicated by hypomag 6. Hypomagnesemia * replace 6. Acute kidney injury on CKD G4: * Recent renal ultrasound unremarkable. * Patient recently had renal biopsy in [facility], that showed IRBN 2/2 MSSA infection * Patient follows [employer] and is consulted. As Xarelto is more renally excreted therefore will change to Eliquis. 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 Peak creatinine was 3.6 trending down. Lasix drip increased to 20 mg/h. Metolazone was added. Monitor intake and output. Previous emesis and Bactrim might be the source for postinfectious glomerulonephritis. 7. Chronic normocytic anemia- * patient hemoglobin is 7.8. Patient hemoglobin has been between 7.5-8.2 recently in July 2021. Last 1 in our system 7.6 on 07/20. * Continue PPI. * Stool positive for occult blood 07/14/21. * Monitor CBC * History: * 08/12: Troponin globin from 7.5-7.0. Low-dose Eliquis 2.5 mg twice daily discontinued. Bilateral SCDs. Stool for occult blood ordered. Monitor H&H in the evening. Monitor CBC daily. * 08/16/2021: Gastroenterology was consulted and wanted to hold off on any type of EGD given all of his other medical issues at this time. We will continue to monitor CBC 8. Type 2 diabetes [id number]-[id number] ACH coverage Humalog sliding scale continue home insulin regimen. We will monitor and make adjustments as necessary 9. Obesity hypoventilation syndrome/probable NILDA: The patient will need formal pulmonary clinic evaluation for PFT and sleep study. Continue BiPAP 10. Debility/failure to thrive, very limited ADL, morbid obesity-PT OT evaluation. DVT: SCDs, stool occult is positive for blood so we will hold off on chemical prophylaxis Charges/Coding Visit Charges Inpatient E&M: 05816 Subs Hosp L2
--- NOTE | 2021-08-17 10:14 | PCM.PN.ID ---
Physical Exam Narrative Feeling better, knee a little less sore. No fever. Const alert General Appearance: cooperative Resp normal air movement and clear to auscultation bilaterally Cardio regular rate and regular rhythm GI soft to palpation, non-tender and non-distended Extremity Extremity Narrative: L knee still swollen and tender Skin no rashes or lesions noted ID ID: Route of nutrition/ use of supplements: [] Nutritional Intake: [] IV Site: [] Franco Catheter: [] Assessment & Plan Assessment/Plan (1) MSSA bacteremia: PLAN: Bcx per pcr showing MSSA again. Ucx with GNR. 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 Splinter hemorrhages seen on fingers. Will narrow to cefazolin. Neg SHLOMO. Repeat bcx neg at 48 hours at this point. If bcx stay neg, plan will be for picc tomorrow and 6 weeks iv cefazolin. Will follow
--- NOTE | 2021-08-17 10:23 | PN.RENAL_ITS ---
Subjective Subjective Following for GAYE Resting quietly, no complaints. Objective Data Objective Data Vital Signs: Vital Signs Temp Pulse Resp BP Pulse Ox 98.2 F 54 L 20 H 104/56 L 100 08/17/21 08:20 08/17/21 08:20 08/17/21 08:20 08/17/21 08:20 08/17/21 08:20 Oxygen Flow Rate (L/min) 2 Oxygen Delivery Method Nasal Cannula Weight: 159.5 kg Body Mass Index (BMI) 56.7 Intake & Output: Intake and Output for Last 24 Hours 08/15/21 08/16/21 08/17/21 23:59 23:59 23:59 Intake Total 1156 / 1356 1060.87 / 1160.87 300 / 300 Output Total 3575 / 4075 2075 / 2275 500 / 500 Balance -2419 / -2719 -1014.13 / -1114.13 -200 / -200 Lab / Micro Data Result Diagrams: 08/17/21 05:20 08/17/21 05:20 Labs: Laboratory Results - last 24 hr 08/14/21 06:50: Diff Path Review Reviewed 08/15/21 05:34: Diff Path Review Reviewed 08/16/21 06:00: Diff Path Review Reviewed 08/16/21 11:15: POC Glucose 182 H 08/16/21 16:59: POC Glucose 146 H 08/16/21 21:29: POC Glucose 169 H 08/17/21 05:20: Sodium 138, Potassium 2.5 L*, Chloride 97 L, Carbon Dioxide 33.0 H, Anion Gap 8, BUN 95 H, Creatinine 2.11 H, Estim Creat Clear Calc 30.89, Est GFR (MDRD) Af Amer 40 L, Est GFR (MDRD) Non-Af 33 L, BUN/Creatinine Ratio 45.0 H , Glucose 124 H, Calcium 8.5, Magnesium 1.4 L 08/17/21 05:20: WBC 14.1 H, RBC 2.94 L, Hgb 7.8 L, Hct 24.7 L, MCV 84.0, MCH 26.5 L, MCHC 31.6 L, RDW Std Deviation 57.1 H, RDW Coeff of Jory 19.1 H, Plt Count 333, MPV 9.9, Neut % (Auto) Not Reportable, Absolute Neuts (auto) 13.4 H, Absolute Lymphs (auto) 0.28 L, Total Counted 100, Neutrophils % (Manual) 94 H, Band Neutrophils % 1, Lymphocytes % (Manual) 2 L, Monocytes % (Manual) 2, Myelocytes % 1 H, Diff Path Review August, Platelet Estimate ADEQUATE, RBC Morphology N CYTIC, Hypochromasia 1+ 08/17/21 08:04: POC Glucose 135 H Micro: Microbiology 08/11/21 12:15 Blood Culture (Wb) - Right Hand Blood Culture - Final Staphylococcus aureus 08/14/21 06:50 Blood Culture (Wb) - Right Hand Blood Culture - Preliminary No growth in 48 hours. 08/13/21 08:20 Blood Culture (Wb) - Other Blood Culture - Preliminary Staphylococcus aureus 08/12/21 10:16 Blood Culture (Wb) - Right Hand Blood Culture - Preliminary Staphylococcus aureus 08/10/21 18:54 Blood Culture (Wb) - Other Blood Culture - Final Staphylococcus aureus 08/10/21 15:29 Blood Culture (Wb) - Other Bacteria Detection (PCR) - Final Staphylococcus aureus 08/10/21 15:29 Blood Culture (Wb) - Other Blood Culture - Final Staphylococcus aureus 08/10/21 14:25 Urine Catheter - [place]ib[place]aux Urine Culture - Final Escherichia coli Staphylococcus aureus 08/12/21 18:02 Stool Stool Occult Blood (DAMIAN) - Final Occult Blood Positive 08/12/21 10:00 Nasal Secretion SARS-CoV-2 Antigen (Rapid) - Final 08/10/21 13:45 Mucosa - Nasopharyngeal Respiratory Panel (PCR) - Final Physical Exam Narrative Const: A&Ox3 HEENT: PERRLA, oral mucosa moist Cardio: S1 S2 RRR Resp: LS Clear anteriorly, diminished breath sounds posterior bases. No rales or rhonchi Extremities: SHELLI wrap on b/l legs, edema to b/l legs and thighs thibodeaux with clear, straw color urine in bag Assessment & Plan Assessment/Plan (1) GAYE (acute kidney injury): PLAN: - The patient has normal baseline kidney function. His serum creatinine was 0.95 mg/dL on 06/21/2021. 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 -Serum creatinine peaked at 3.60 mg/dL in July with gradual improvement. -The patient admitted again on 08/11/2021 with volume overload/heart failure with preserved ejection fraction exacerbation. So, there may be some component of GAYE from cardiorenal syndrome as well. -Despite starting furosemide drip, renal function has stabilized. Serum creatinine is 2.11mg/dL today and was 2.78 mg/dL on 08/11/2021. -Continue furosemide drip with careful monitoring of renal function, volume status, and electrolytes. -replace K+ and mag as ordered. -Overall renal function and volume status is improving. There is no need for kidney replacement therapy. (2) Anemia: PLAN: -The patient likely has anemia of chronic disease. -Unfortunately, there is no role for MERLIN in the setting of GAYE. -Continue to monitor hemoglobin and transfuse if less than 7 g/dL. (3) Acute on chronic respiratory failure with hypoxia: PLAN: - The patient has multifactorial explanations for acute hypoxic respiratory failure. -He has exacerbation of heart failure with preserved ejection fraction, acute kidney injury predisposing volume overload, and possible COPD. -The patient is being treated with furosemide drip for volume control. Cumulative output 10L, current weight 159kg (peak wt ~180kg). Continue FR. Continue lasix gtt. (4) Bacteremia: PLAN: -The patient has persistent MSSA bacteremia. WBC trending down. BC from 08/14 so far no growth, BC from 08/15 so far negative. -The patient is status post dry left shoulder aspiration; s/p drain aspiration left knee 08/13/2021. Suspicion for left knee septic arthritis low. SHLOMO negative for valvular vegetations. -The patient is on cefazolin.
[2021-08-17] MEDS: Cefazolin 2 GM in 0.9% Normal Saline 100 ML IV ×2 (10:36→22:09)
[2021-08-17 11:32] LABS: Pathologist Review Reviewed
[2021-08-17] MEDS: Magnesium Sulfate 4gm/100mL 4 GM/100 ML IV.SOLN. IV (11:58)
[2021-08-17 13:56] LABS: Bedside Glucose 134 mg/dL (74-106)
--- NOTE | 2021-08-17 14:26 | CASEMGMT ---
MIMI faxed updates to [facility] notifying Joleen that when patient returns he will be on IV Cephazolin for 6 weeks. Leslie Caldera MSW LIANA
[2021-08-17] MEDS: Furosemide 500 MG in Empty Viaflex 50 mL 1 EACH CONT INF (15:44)
[2021-08-17 16:35] LABS: Bedside Glucose 118 mg/dL (74-106)
[2021-08-17] MEDS: Latanoprost 0.005% 1 Bottle 1 DRP EACH EYE (22:16)
[2021-08-17 23:16] LABS: Bedside Glucose 150 mg/dL (74-106)
[2021-08-18] VITALS (17 sets, daily range): BP systolic 100–126; BP diastolic 49–100; PULSE 48–54; RESP 14–23; TEMP 36.3–36.8; O2SAT 97–99
[2021-08-18 06:14] LABS: Hematocrit 24.9 % (40-54); Hemoglobin 7.6 g/dL (13.0-16.5); Mean Corp Hgb Conc 30.5 g/dL (32-36); Mean Corpuscular Hgb 26.3 pg (27.0-32.0); Mean Corpuscular Volume 86.2 fL (80-94); Mean Platelet Vol. 9.8 fl (6.2-12.0); POSITIVE COUNT YES; POSITIVE DIFFERENTIAL YES; POSITIVE MORPHOLOGY YES; Platelet Count 316 K/mm3 (150-450); RBC Distribution Width CV 19.9 % (11.6-14.6); RBC Distribution Width SD 60.7 fl (35.1-43.9); Red Blood Count 2.89 M/mm3 (4.6-6.2); White Blood Count 12.1 K/mm3 (4.4-11.0)
[2021-08-18 06:16] LABS: Differential Indicated MANUAL DIFF
[2021-08-18] MEDS: Levothyroxine 25 MCG TABLET PO (06:25)
[2021-08-18] MEDS: Ipratropium/Albuterol Sulfate 3 ML AMPUL.NEB INHALATION ×2 (06:38→18:34)
[2021-08-18 06:42] LABS: Anion Gap 10 (5-15); BUN 100 mg/dL (7-18); BUN/Creat Ratio 46.9 RATIO (10-20); Calcium,Total 9.1 mg/dL (8.5-10.1); Chloride 96 mmol/L (98-107); Creatinine, Serum 2.13 mg/dL (0.70-1.30); EST Glomerular Filtration Rate 33 mL/min (>60); Est Glom Filt Rate - Afr Amer 40 mL/min (>60); Glucose 121 mg/dL (74-106); Magnesium 2.1 mg/dL (1.6-2.6); Potassium 2.7 mmol/L (3.5-5.1); Sodium Level 137 mmol/L (136-145)
[2021-08-18 06:47] LABS: Lymphocyte 3 % (19-41); Metamyelocyte 1 % (0-1); Myelocyte 1 % (0-0); Neutrophil-Segmented 85 % (47-70); Total Cells Counted 100 (MANUAL DIFF)
[2021-08-18 06:48] LABS: Eosinophil 4 % (0-5); Hypochromasia 1+; Monocyte 6 % (0-10); Platelet Estimate ADEQUATE (ADEQ)
[2021-08-18 06:49] LABS: Red Cell Morphology N CYTIC NORMAL (NORM C&C)
[2021-08-18 06:50] LABS: Absolute Lymphocyte Count 0.36 X10^3/uL (0.83-4.51); Absolute Neutrophil Count 10.3 X10^3/uL (2.0-7.7); Lymphocyte # 0.36 X10^3/ul (0.83-4.51); Neutrophil # 10.25 X10^3/uL (2.7-7.7)
--- NOTE | 2021-08-18 07:58 | PN.HOSP_ITS ---
Subjective Subjective Breathing well. Denies new complaints. Decreased LE edema. Worked with therapy, but only able to stand at bedside. Objective Data Objective Data Vital Signs: Vital Signs Temp Pulse Resp BP Pulse Ox 36.6 C 48 L 16 113/65 97 08/18/21 03:31 08/18/21 07:00 08/18/21 06:38 08/18/21 03:31 08/18/21 06:38 Oxygen Flow Rate (L/min) 2 Oxygen Delivery Method Nasal Cannula Weight: 160.3 kg Body Mass Index (BMI) 56.7 Intake & Output: Intake and Output for Last 24 Hours 08/16/21 08/17/21 08/18/21 23:59 23:59 23:59 Intake Total 1060.87 / 1160.87 1779.27 / 1899.27 350 / 350 Output Total 2075 / 2275 1900 / 2300 1050 / 1050 Balance -1014.13 / -1114.13 -120.73 / -400.73 -700 / -700 Lab / Micro Data Result Diagrams: 08/18/21 05:45 08/18/21 05:45 Labs: Laboratory Results - last 24 hr 08/17/21 05:20: Diff Path Review Reviewed 08/17/21 08:04: POC Glucose 135 H 08/17/21 11:50: POC Glucose 134 H 08/17/21 16:20: POC Glucose 118 H 08/17/21 22:20: POC Glucose 150 H 08/18/21 05:45: Sodium 137, Potassium 2.7 L*, Chloride 96 L, Carbon Dioxide 31.0, Anion Gap 10, BUN 100 H, Creatinine 2.13 H, Estim Creat Clear Calc 30.60, Est GFR (MDRD) Af Amer 40 L, Est GFR (MDRD) Non-Af 33 L, BUN/Creatinine Ratio 46.9 H, Glucose 121 H, Calcium 9.1, Magnesium 2.1 08/18/21 05:45: WBC 12.1 H, RBC 2.89 L, Hgb 7.6 L, Hct 24.9 L, MCV 86.2, MCH 26.3 L, MCHC 30.5 L, RDW Std Deviation 60.7 H, RDW Coeff of Jory 19.9 H, Plt Count 316, MPV 9.8, Neut % (Auto) Not Reportable, Absolute Neuts (auto) 10.3 H, Absolute Lymphs (auto) 0.36 L, Total Counted 100, Neutrophils % (Manual) 85 H, Lymphocytes % (Manual) 3 L, Monocytes % (Manual) 6, Eosinophils % (Manual) 4, Metamyelocytes % 1, Myelocytes % 1 H, Diff Path Review May , Platelet Estimate ADEQUATE, RBC Morphology N CYTIC, Hypochromasia 1+ Micro: Microbiology 08/12/21 10:16 Blood Culture (Wb) - Right Hand Blood Culture - Final Staphylococcus aureus 08/11/21 12:15 Blood Culture (Wb) - Right Hand Blood Culture - Final Staphylococcus aureus 08/14/21 06:50 Blood Culture (Wb) - Right Hand Blood Culture - Preliminary No growth in 48 hours. 08/13/21 08:20 Blood Culture (Wb) - Other Blood Culture - Preliminary Staphylococcus aureus 08/10/21 18:54 Blood Culture (Wb) - Other Blood Culture - Final Staphylococcus aureus 08/10/21 15:29 Blood Culture (Wb) - Other Bacteria Detection (PCR) - Final Staphylococcus aureus 08/10/21 15:29 Blood Culture (Wb) - Other Blood Culture - Final Staphylococcus aureus 08/10/21 14:25 Urine Catheter - Franco Urine Culture - Final Escherichia coli Staphylococcus aureus 08/12/21 18:02 Stool Stool Occult Blood (DAMIAN) - Final Occult Blood Positive 08/12/21 10:00 Nasal Secretion SARS-CoV-2 Antigen (Rapid) - Final 08/10/21 13:45 Mucosa - Nasopharyngeal Respiratory Panel (PCR) - Final Physical Exam Const alert and no apparent distress Resp normal respiratory effort, no retractions, no use of accessory muscles and clear to auscultation bilaterally Cardio regular rate, regular rhythm, S1 normal heart sound and S2 normal heart sound GI normal to inspection, nondistended, normoactive bowel sounds, soft to palpation, non-tender and non-distended Extremity General Extremity: edema Neuro Sensorium / Orientation: awake and alert Assessment & Plan Assessment/Plan (1) Acute renal failure: QUALIFIERS: Acute renal failure type: unspecified Qualified Code(s): N17.9 - Acute kidney failure, unspecified (2) CKD stage 4 due to type 1 diabetes mellitus: (3) COPD exacerbation: (4) CHF exacerbation: QUALIFIERS: Heart failure type: diastolic Qualified Code(s): I50.33 - Acute on chronic diastolic (congestive) heart failure PLAN: 1. Acute on chronic hypoxic respiratory failure due to COPD exacerbation and CHF exacerbation: * History: * 08/11: ABG was reviewed yesterday on 08/10. 7.40/43/133 on BiPAP suggestive of hypoxia. No hypercarbia. D-dimer was elevated. Venous duplex was negative for DVT. Furthermore VQ scan was done which reported low probability of PE. Chest x-ray shows increased bronchovascular markings, congestion suggestive of pulmonary edema. * 08/12: Patient remains intermittently on BiPAP and nasal cannula. Currently on 3 L of oxygen. Labored breathing. * 08/13/2021: Continue with IV diuresis * 08/14/2021: Continue with IV diuresis, his creatinine is stable appreciate nephrology's assistance * 08/16/2021: Creatinine is improving with the IV diuresis as is his shortness of breath therefore we will continue. 2. MSSA bacteremia: * During admission in June 2020, SHLOMO because of MSSA bacteremia in June 2019 did not show any vegetation reported normal mitral tricuspid valve. Mild diffuse aortic valve thickening. At that time patient was treated with IV cefazolin. * This time prelim blood cultures x2 shows a staph, mec-A not detected most likely MSSA. Discussed with ID and requested consult. * IV cefepime. Patient completed 3 doses of Zithromax. * SHLOMO on 08/13 negative for endocardititis * Patient also had left pain and left shoulder replacement in the past therefore x-rays of left shoulder and left knee ordered. Xray unremarkable for obvious osteomyelitis. * History * 08/12: Discussed with ID. Agreed with SHLOMO tomorrow AM. There is tenderness over left knee. Patient had left shoulder replacement and ROM is very restricted/limited. * 08/13/2021: SHLOMO was negative for any valvular vegetations. We will continue with IV antibiotics per ID. He did have an MSSA bacteremia back in June etiology this time is likely the decubitus ulcer. Appreciate ID assistance. Attempted arthrocenteses of left shoulder and knee were dry taps. * 08/15/2021: Blood cultures are continue to come back positive we will recheck another 1 today we will discuss the situation with ID tomorrow when they are in the hospital * 08/16/2021: Blood cultures from 08/14/2021 are negative, cultures from 5 8 are still pending. Continue with cefepime at this time. Cultures from [place] demonstrate beta-lactamase resistance and the MSSA that they had gotten on their cultures. * 08/17: on cefazolin. plan for 6 weeks of IV abx. 3. Acute on chronic HFpEF/second-degree AV block with A-V dissociation: * Patient had last echo in June 2021 shows EF 65%, stage I diastolic dysfunction. Study was technically difficult due to body habitus and valves could not be well visualized. Heart failure core measures including intake and output, fluid restriction less than 1500 mL, daily weight monitoring, kidney and electrolytes monitoring. Serial troponins ordered. * On Lasix drip. * History: * 08/11: Patient was a started on Lasix drip by my colleague last night. Customer Care Voice Consultant consult reviewed. 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 Peak creatinine was 3.6 slowly trending down. Serial troponins negative. ACS ruled out. TSH normal. * 08/13/2021: Overnight he had episodes of V. tach, cardiology evaluated the strips and felt that he had a second-degree AV block with A-V dissociation. We will stop beta-blockers and consult cardiology for continued management while inpatient * 08/14/2021: No abnormal rhythms overnight, cardiology is following and will likely need a pacemaker placed after he has cleared the infections which can likely be in several weeks. 4. Possible COPD exacerbation: * Patient never had PFT done last discharge was advised to follow-up in pulmonary clinic but patient never made it. Patient has been never a smoker. 5. Hypokalemia * replace * complicated by hypomag 6. Hypomagnesemia * improved with replacement 6. Acute kidney injury on CKD G4: * Recent renal ultrasound unremarkable. * Patient recently had renal biopsy in [facility], that showed IRBN 2/2 MSSA infection * Patient follows [facility] and is consulted. As Xarelto is more renally excreted therefore will change to Eliquis. 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 Peak creatinine was 3.6 trending down. Lasix drip increased to 20 mg/h. Metolazone was added. Monitor intake and output. Previous emesis and Bactrim might be the source for postinfectious glomerulonephritis. 7. Chronic normocytic anemia- * stable * patient hemoglobin is 7.8. Patient hemoglobin has been between 7.5-8.2 recently in July 2021. Last 1 in our system 7.6 on 07/20. * Continue PPI. * Stool positive for occult blood 07/14/21. * Monitor CBC * History: * 08/12: Troponin globin from 7.5-7.0. Low-dose Eliquis 2.5 mg twice daily d iscontinued. Bilateral SCDs. Stool for occult blood ordered. Monitor H&H in the evening. Monitor CBC daily. * 08/16/2021: Gastroenterology was consulted and wanted to hold off on any type of EGD given all of his other medical issues at this time. We will continue to monitor CBC * 08/18: check iron, TIBC, ferritin, B12 and folate 8. Type 2 diabetes [id number] ACH coverage Humalog sliding scale continue home insulin regimen. We will monitor and make adjustments as necessary 9. Obesity hypoventilation syndrome/probable NILDA: The patient will need formal pulmonary clinic evaluation for PFT and sleep study. Continue BiPAP 10. Debility/failure to thrive, very limited ADL, morbid obesity-PT OT evaluation. To go to [facility] when medically ready. 11. DVT: * apixaban held given anemia and heme positive stools * duplex on the was negative VTE 12. VTE prophylaxis: SCDs Charges/Coding Visit Charges Inpatient E&M: 11560 Subs Hosp L2
--- NOTE | 2021-08-18 08:15 | NURSING ---
Weaned oxygen from 2L to 1L. Was satting 100% on 2L
[2021-08-18] MEDS: guaiFENesin 1,200 MG Tablet 1200 MG PO ×2 (08:36→21:24)
[2021-08-18] MEDS: Pantoprazole Sodium 40 MG Tablet PO ×2 (08:36→21:24)
[2021-08-18] MEDS: Potassium Chloride Oral Tablet 20 MEQ 40 MEQ PO ×2 (08:36→16:08)
[2021-08-18] MEDS: Menthol/Lanolin/Calamine/Znox 113 GM Tube 1 APPLIC TOPICAL ×2 (08:37→21:38)
[2021-08-18] MEDS: Potassium Chloride 10mEq/100mL 10 MEQ/100 ML IV.SOLN. 100 MEQ IV BOLUS ×4 (08:40→13:48)
[2021-08-18 08:42] LABS: Ferritin 508 ng/mL (26-388); Iron 49 ug/dL (65-175); Iron Binding Capacity,Total 232 ug/dL (250-450); PERCENT IRON SATURATION 21.1 % (15.0-55.0)
[2021-08-18 09:06] LABS: Bedside Glucose 121 mg/dL (74-106)
[2021-08-18 09:24] LABS: Vitamin B12 831 pg/mL (211-911)
--- NOTE | 2021-08-18 09:52 | NURSING ---
Weaned patient to RA, satting 97-99% on 1L
[2021-08-18] MEDS: Cefazolin 2 GM in 0.9% Normal Saline 100 ML IV ×2 (11:00→21:43)
[2021-08-18 11:16] LABS: Bedside Glucose 130 mg/dL (74-106)
--- NOTE | 2021-08-18 12:20 | PCM.PN.ID ---
Physical Exam Narrative Feeling better, no fever, no n/v/d. Knee still sore. Const alert and no apparent distress General Appearance: cooperative Resp normal air movement and clear to auscultation bilaterally Cardio regular rate and regular rhythm GI soft to palpation, non-tender and non-distended Extremity Extremity Narrative: L knee sore to touch General Extremity: edema Skin no rashes or lesions noted ID ID: Route of nutrition/ use of supplements: [] Nutritional Intake: [] IV Site: [] Franco Catheter: [] Assessment & Plan Assessment/Plan (1) MSSA bacteremia: PLAN: Bcx with MSSA again. Ucx with ecoli. 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 Splinter hemorrhages seen on fingers. Cont cefazolin. Neg SHLOMO. Repeat bcx neg at 72+ hours at this point. Will order picc and 6 weeks iv cefazolin, stop date 09/25/21. ID followup in 2 weeks. May need longer course of po abx once iv is complete due to suspected joint involvement as potential explanation for recurrence. Will follow
--- NOTE | 2021-08-18 12:31 | CASEMGMT ---
[facility] faxed prescription for the IV antibiotic patient will be on at discharge to [facility]. Leslie GAINES
--- NOTE | 2021-08-18 13:38 | PN.RENAL_ITS ---
Subjective Subjective Resting in bed, no complaints today. No overnight events. Objective Data Objective Data Vital Signs: Vital Signs Temp Pulse Resp BP Pulse Ox 98.2 F 50 L 20 H 101/54 L 97 08/18/21 09:50 08/18/21 09:50 08/18/21 09:50 08/18/21 09:50 08/18/21 10:51 Oxygen Flow Rate (L/min) 1 Oxygen Delivery Method Nasal Cannula Weight: 160.3 kg Body Mass Index (BMI) 56.7 Intake & Output: Intake and Output for Last 24 Hours 08/16/21 08/17/21 08/18/21 23:59 23:59 23:59 Intake Total 1060.87 / 1160.87 1779.27 / 1899.27 660 / 660 Output Total 2075 / 2275 1900 / 2300 1050 / 1050 Balance -1014.13 / -1114.13 -120.73 / -400.73 -390 / -390 Lab / Micro Data Result Diagrams: 08/18/21 05:45 08/18/21 05:45 Labs: Laboratory Results - last 24 hr 08/17/21 11:50: POC Glucose 134 H 08/17/21 16:20: POC Glucose 118 H 08/17/21 22:20: POC Glucose 150 H 08/18/21 05:45: Sodium 137, Potassium 2.7 L*, Chloride 96 L, Carbon Dioxide 31.0, Anion Gap 10, BUN 100 H, Creatinine 2.13 H, Estim Creat Clear Calc 30.60, Est GFR (MDRD) Af Amer 40 L, Est GFR (MDRD) Non-Af 33 L, BUN/Creatinine Ratio 46.9 H, Glucose 121 H, Calcium 9.1, Magnesium 2.1 08/18/21 05:45: WBC 12.1 H, RBC 2.89 L, Hgb 7.6 L, Hct 24.9 L, MCV 86.2, MCH 26.3 L, MCHC 30.5 L, RDW Std Deviation 60.7 H, RDW Coeff of Jory 19.9 H, Plt Count 316, MPV 9.8, Neut % (Auto) Not Reportable, Absolute Neuts (auto) 10.3 H, Absolute Lymphs (auto) 0.36 L, Total Counted 100, Neutrophils % (Manual) 85 H, Lymphocytes % (Manual) 3 L, Monocytes % (Manual) 6, Eosinophils % (Manual) 4, Metamyelocytes % 1, Myelocytes % 1 H, Diff Path Review August, Platelet Estimate ADEQUATE, RBC Morphology N CYTIC, Hypochromasia 1+ 08/18/21 05:45: Iron 49 L, TIBC 232 L, Iron Saturation 21.1, Ferritin 508 H, Folate 3.50 08/18/21 07:50: POC Glucose 121 H 08/18/21 08:42: Vitamin B12 831 08/18/21 11:04: POC Glucose 130 H Micro: Microbiology 08/12/21 10:16 Blood Culture (Wb) - Right Hand Blood Culture - Final Staphylococcus aureus 08/13/21 08:20 Blood Culture (Wb) - Other Blood Culture - Final Staphylococcus aureus 08/11/21 12:15 Blood Culture (Wb) - Right Hand Blood Culture - Final Staphylococcus aureus 08/14/21 06:50 Blood Culture (Wb) - Right Hand Blood Culture - Preliminary No growth in 48 hours. 08/10/21 18:54 Blood Culture (Wb) - Other Blood Culture - Final Staphylococcus aureus 08/10/21 15:29 Blood Culture (Wb) - Other Bacteria Detection (PCR) - Final Staphylococcus aureus 08/10/21 15:29 Blood Culture (Wb) - Other Blood Culture - Final Staphylococcus aureus 08/10/21 14:25 Urine Catheter - [place]ib[place]aux Urine Culture - Final Escherichia coli Staphylococcus aureus 08/12/21 18:02 Stool Stool Occult Blood (DAMIAN) - Final Occult Blood Positive 08/12/21 10:00 Nasal Secretion SARS-CoV-2 Antigen (Rapid) - Final 08/10/21 13:45 Mucosa - Nasopharyngeal Respiratory Panel (PCR) - Final Physical Exam Narrative Const: A&Ox3 HEENT: PERRLA, oral mucosa moist Cardio: S1 S2 RRR Resp: LS Clear anteriorly. No rales or rhonchi Extremities: SHELLI wrap on b/l legs, edema to b/l legs and thighs thibodeaux with clear, straw color urine in bag Assessment & Plan Assessment/Plan (1) GAYE (acute kidney injury): PLAN: - The patient has normal baseline kidney function. His serum creatinine was 0.95 mg/dL on 06/21/2021. -The patient has a biopsy-proven infection related glomerulonephritis (IRGN) re lated to MSSA infection. -Serum creatinine peaked at 3.60 mg/dL in July with gradual improvement. -The patient admitted again on 08/11/2021 with volume overload/heart failure with preserved ejection fraction exacerbation. So, there may be some component of GAYE from cardiorenal syndrome as well. -Despite starting furosemide drip, renal function has stabilized. Serum creatinine 2.1mg/dL last few days and was 2.78 mg/dL on 08/11/2021. -Continue furosemide drip with careful monitoring of renal function, volume status, and electrolytes. -replace K+ again today as ordered, IV and PO. Mag was replaced yesterday, mag level 2.1 today. Patient does not need renal diet restrictions. -Overall renal function and volume status is improving. There is no need for kidney replacement therapy. (2) Anemia: PLAN: -The patient likely has anemia of chronic disease. -Unfortunately, there is no role for MERLIN in the setting of GAYE. -Continue to monitor hemoglobin and transfuse if less than 7 g/dL. (3) Acute on chronic respiratory failure with hypoxia: PLAN: - The patient has multifactorial explanations for acute hypoxic respiratory failure. -He has exacerbation of heart failure with preserved ejection fraction, acute kidney injury predisposing volume overload, and possible COPD. -The patient is being treated with furosemide drip for volume control. Cumulative output 11L, current weight 159kg (peak wt ~180kg). Continue FR. Continue lasix gtt. (4) Bacteremia: PLAN: -The patient has persistent MSSA bacteremia. WBC trending down. BC from 08/14 and 08/15 so far no growth. -The patient is status post dry left shoulder aspiration; s/p drain aspiration left knee 08/13/2021. Suspicion for left knee septic arthritis low. SHLOMO negative for valvular vegetations. -The patient is on cefazolin for 6weeks
[2021-08-18] MEDS: Insulin Lispro 100 UNIT/ML INSULN.PEN SC (16:16)
[2021-08-18 16:21] LABS: Bedside Glucose 144 mg/dL (74-106)
[2021-08-18] MEDS: Furosemide 500 MG in Empty Viaflex 50 mL 1 EACH CONT INF (17:04)
--- NOTE | 2021-08-18 19:30 | RAD_ITS ---
STUDY: X-RAY CHEST REASON FOR EXAM: Male, 70 years old. picc placement TECHNIQUE: 2 frontal images of the chest were obtained. COMPARISON: 08/11/2021 FINDINGS: There is a right sided central venous catheter placed terminating within the expected region of the superior vena cava. There are bilateral hazy opacities associated with prominent interstitial markings within the mid and lower lungs. There is perihilar fullness. There is cardiomegaly. Normal visualized aortic arch and descending thoracic aorta. Normal visualized thoracic spine. There is a left shoulder arthroplasty. There is no demonstrated abnormality of the visualized soft tissue structures of the upper abdomen. RAD/CXR for Line Placement IMPRESSION: Right sided PICC line terminating within the expected region of the superior vena cava. Pulmonary venous congestion associated with interstitial edema and/or an infectious process. Cardiomegaly. Electronically Signed: Ella Wallis MD at 20:10 EDT ,
[2021-08-18] MEDS: Latanoprost 0.005% 1 Bottle 1 DRP EACH EYE (21:22)
[2021-08-18] MEDS: 0.9% Saline Lock 10 ML Syringe IV (21:49)
[2021-08-18 22:05] LABS: Bedside Glucose 135 mg/dL (74-106)
[2021-08-19] VITALS (15 sets, daily range): BP systolic 95–115; BP diastolic 44–90; PULSE 48–62; RESP 18–24; TEMP 36.4–36.6; O2SAT 95–100
[2021-08-19] MEDS: Levothyroxine 25 MCG TABLET PO (05:04)
[2021-08-19] MEDS: Cefazolin 2 GM in 0.9% Normal Saline 100 ML IV (05:11)
[2021-08-19 06:38] LABS: Anion Gap 8 (5-15); BUN 102 mg/dL (7-18); BUN/Creat Ratio 40.3 RATIO (10-20); Calcium,Total 9.4 mg/dL (8.5-10.1); Chloride 97 mmol/L (98-107); Creatinine, Serum 2.53 mg/dL (0.70-1.30); EST Glomerular Filtration Rate 27 mL/min (>60); Est Glom Filt Rate - Afr Amer 33 mL/min (>60); Estimated Creatinine Clearance 25.76 ml/min; Glucose 118 mg/dL (74-106); Potassium 3.5 mmol/L (3.5-5.1); Sodium Level 136 mmol/L (136-145)
[2021-08-19] MEDS: Ipratropium/Albuterol Sulfate 3 ML AMPUL.NEB INHALATION ×3 (06:50→14:18)
[2021-08-19] MEDS: Menthol/Lanolin/Calamine/Znox 113 GM Tube 1 APPLIC TOPICAL ×2 (08:32→20:57)
[2021-08-19] MEDS: guaiFENesin 1,200 MG Tablet 1200 MG PO ×2 (08:33→20:58)
[2021-08-19] MEDS: Potassium Chloride Oral Tablet 20 MEQ 40 MEQ PO ×3 (08:33→16:12)
[2021-08-19] MEDS: Pantoprazole Sodium 40 MG Tablet PO ×2 (08:33→20:58)
--- NOTE | 2021-08-19 08:46 | PN.HOSP_ITS ---
Subjective Subjective Noted myoclonus. Denies any other complaints. Objective Data Objective Data Vital Signs: Vital Signs Temp Pulse Resp BP Pulse Ox 36.6 C 53 L 22 H 111/44 L 98 08/19/21 08:26 08/19/21 08:26 08/19/21 08:26 08/19/21 08:26 08/19/21 08:26 Oxygen Flow Rate (L/min) 1 Oxygen Delivery Method Room Air Weight: 159.6 kg Body Mass Index (BMI) 56.7 Intake & Output: Intake and Output for Last 24 Hours 08/17/21 08/18/21 08/19/21 23:59 23:59 23:59 Intake Total 1779.27 / 1899.27 1440 / 1440 160 / 160 Output Total 1900 / 2300 2049 / 2049 250 / 250 Balance -120.73 / -400.73 -610 / -610 -90 / -90 Lab / Micro Data Result Diagrams: 08/18/21 05:45 08/19/21 05:44 Labs: Laboratory Results - last 24 hr 08/18/21 07:50: POC Glucose 121 H 08/18/21 08:42: Vitamin B12 831 08/18/21 11:04: POC Glucose 130 H 08/18/21 16:14: POC Glucose 144 H 08/18/21 21:32: POC Glucose 135 H 08/19/21 05:44: Sodium 136, Potassium 3.5, Chloride 97 L, Carbon Dioxide 31.0, Anion Gap 8, BUN 102 H*, Creatinine 2.53 H, Estim Creat Clear Calc 25.76, Est GFR (MDRD) Af Amer 33 L, Est GFR (MDRD) Non-Af 27 L, BUN/Creatinine Ratio 40.3 H , Glucose 118 H, Calcium 9.4, Magnesium 2.0 Micro: Microbiology 08/14/21 06:50 Blood Culture (Wb) - Right Hand Blood Culture - Final No growth in 5 days. 08/12/21 10:16 Blood Culture (Wb) - Right Hand Blood Culture - Final Staphylococcus aureus 08/13/21 08:20 Blood Culture (Wb) - Other Blood Culture - Final Staphylococcus aureus 08/11/21 12:15 Blood Culture (Wb) - Right Hand Blood Culture - Final Staphylococcus aureus 08/10/21 18:54 Blood Culture (Wb) - Other Blood Culture - Final Staphylococcus aureus 08/10/21 15:29 Blood Culture (Wb) - Other Bacteria Detection (PCR) - Final Staphylococcus aureus 08/10/21 15:29 Blood Culture (Wb) - Other Blood Culture - Final Staphylococcus aureus 08/10/21 14:25 Urine Catheter - Franco Urine Culture - Final Escherichia coli Staphylococcus aureus 08/12/21 18:02 Stool Stool Occult Blood (DAMIAN) - Final Occult Blood Positive 08/12/21 10:00 Nasal Secretion SARS-CoV-2 Antigen (Rapid) - Final 08/10/21 13:45 Mucosa - Nasopharyngeal Respiratory Panel (PCR) - Final Radiography Diagnostic Testing: Radiology Impression Chest X-Ray 08/18/21 19:30 IMPRESSION: Right sided PICC line terminating within the expected region of the superior vena cava. Pulmonary venous congestion associated with interstitial edema and/or an infectious process. Cardiomegaly. Electronically Signed: Ella Wallis MD at 20:10 EDT , Physical Exam Const alert and no apparent distress HEENT head/scalp atraumatic Head and Scalp: normocephalic Resp normal respiratory effort, no retractions, no use of accessory muscles and clear to auscultation bilaterally Cardio regular rate, regular rhythm, S1 normal heart sound and S2 normal heart sound GI normal to inspection, nondistended, normoactive bowel sounds, soft to palpation and non-tender Extremity General Extremity: edema Skin no rashes or lesions noted Neuro Sensorium / Orientation: awake and alert Assessment & Plan Assessment/Plan (1) Acute renal failure: QUALIFIERS: Acute renal failure type: unspecified Qualified Cod e(s): N17.9 - Acute kidney failure, unspecified (2) CKD stage 4 due to type 1 diabetes mellitus: (3) COPD exacerbation: (4) CHF exacerbation: QUALIFIERS: Heart failure type: diastolic Qualified Code(s): I50.33 - Acute on chronic diastolic (congestive) heart failure PLAN: 1. Acute on chronic hypoxic respiratory failure due to COPD exacerbation and CHF exacerbation: * History: * 08/11: ABG was reviewed yesterday on 08/10. 7.40/43/133 on BiPAP suggestive of hypoxia. No hypercarbia. D-dimer was elevated. Venous duplex was negative for DVT. Furthermore VQ scan was done which reported low probability of PE. Chest x-ray shows increased bronchovascular markings, congestion suggestive of pulmonary edema. * 08/12: Patient remains intermittently on BiPAP and nasal cannula. Currently on 3 L of oxygen. Labored breathing. * 08/13/2021: Continue with IV diuresis * 08/14/2021: Continue with IV diuresis, his creatinine is stable appreciate nephrology's assistance * 08/16/2021: Creatinine is improving with the IV diuresis as is his shortness of breath therefore we will continue. 2. MSSA bacteremia: * During admission in June 2020, SHLOMO because of MSSA bacteremia in June 2019 did not show any vegetation reported normal mitral tricuspid valve. Mild diffuse aortic valve thickening. At that time patient was treated with IV cefazolin. * This time prelim blood cultures x2 shows a staph, mec-A not detected most likely MSSA. Discussed with ID and requested consult. * IV cefepime. Patient completed 3 doses of Zithromax. * SHLOMO on 08/13 negative for endocardititis * Patient also had left pain and left shoulder replacement in the past therefore x-rays of left shoulder and left knee ordered. Xray unremarkable for obvious osteomyelitis. * History * 08/12: Discussed with ID. Agreed with SHLOMO tomorrow AM. There is tenderness over left knee. Patient had left shoulder replacement and ROM is very restricted/limited. * 08/13/2021: SHLOMO was negative for any valvular vegetations. We will continue with IV antibiotics per ID. He did have an MSSA bacteremia back in June etiology this time is likely the decubitus ulcer. Appreciate ID assistance. Attempted arthrocenteses of left shoulder and knee were dry taps. * 08/15/2021: Blood cultures are continue to come back positive we will recheck another 1 today we will discuss the situation with ID tomorrow when they are in the hospital * 08/16/2021: Blood cultures from 08/14/2021 are negative, cultures from 08 15 are still pending. Continue with cefepime at this time. Cultures from [place] demonstrate beta-lactamase resistance and the MSSA that they had gotten on their cultures. * 08/17: on cefazolin. plan for 6 weeks of IV abx. 3. Acute on chronic HFpEF/second-degree AV block with A-V dissociation: * Patient had last echo in June 2021 shows EF 65%, stage I diastolic dysfunction. Study was technically difficult due to body habitus and valves could not be well visualized. Heart failure core measures including intake and output, fluid restriction less than 1500 mL, daily weight monitoring, kidney and electrolytes monitoring. Serial troponins ordered. * On Lasix drip. * History: * 08/11: Patient was a started on Lasix drip by my colleague last night. Elevator Conductor consult reviewed. 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 Peak creatinine was 3.6 slowly trending down. Serial troponins negative. ACS ruled out. TSH normal. * 08/13/2021: Overnight he had episodes of V. tach, cardiology evaluated the strips and felt that he had a second-degree AV block with A-V dissociation. We will stop beta-blockers and consult cardiology for continued management while inpatient * 08/14/2021: No abnormal rhythms overnight, cardiology is following and will likely need a pacemaker placed after he has cleared the infections which can likely be in several weeks. 4. Possible COPD exacerbation: * Patient never had PFT done last discharge was advised to follow-up in pulmonary clinic but patient never made it. Patient has been never a smoker. 5. Hypokalemia * replace * complicated by hypomag 6. Hypomagnesemia * improved with replacement 6. Acute kidney injury on CKD G4: * Recent renal ultrasound unremarkable. * Patient recently had renal biopsy in [facility], that showed IRBN 2/2 MSSA infection * Patient follows [facility] sorter and is consulted. As Xarelto is more renally excreted therefore will change to Eliquis. 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 Peak creatinine was 3.6 trending down. Lasix drip increased to 20 mg/h. Metolazone was added. Monitor intake and output. Previous emesis and Bactrim might be the source for postinfectious glomerulonephritis. * 08/19: cr up to 2.53, will dc furosemide gtt. Now with myoclonus. TINO Arita, plan to watch another night. If worse may require [employer]. 7. Chronic normocytic anemia- * stable * patient hemoglobin is 7.8. Patient hemoglobin has been between 7.5-8.2 recently in July 2021. Last 1 in our system 7.6 on 07/20. * Continue PPI. * Stool positive for occult blood 07/14/21. * Monitor CBC * History: * 08/12: Troponin globin from 7.5-7.0. Low-dose Eliquis 2.5 mg twice daily discontinued. Bilateral SCDs. Stool for occult blood ordered. Monitor H&H in the evening. Monitor CBC daily. * 08/16/2021: Gastroenterology was consulted and wanted to hold off on any type of EGD given all of his other medical issues at this time. We will continue to monitor CBC * 08/18: iron 49, ferritin elevated at 508. Folate and B12 WNL. 8. Type 2 diabetes [id number] ACH coverage Humalog sliding scale continue home insulin regimen. We will monitor and make adjustments as necessary 9. Obesity hypoventilation syndrome/probable NILDA: The patient will need formal pulmonary clinic evaluation for PFT and sleep study. Continue BiPAP 10. Debility/failure to thrive, very limited ADL, morbid obesity-PT OT evaluation. To go to [facility] when medically ready. 11. DVT: * apixaban held given anemia and heme positive stools * duplex on the was negative VTE 12. VTE prophylaxis: SCDs Charges/Coding Visit Charges Inpatient E&M: 72808 Subs Hosp L3
[2021-08-19] MEDS: 0.9% Saline Lock 10 ML Syringe IV ×3 (09:00→22:40)
--- NOTE | 2021-08-19 09:13 | PN.RENAL_ITS ---
Subjective Subjective Following for GAYE. The patient has no new complaints. He denies chest pain, nausea, or vomiting. He has some shortness of breath with exertion but none at rest. Lower extremity edema is improving. Objective Data Objective Data Vital Signs: Vital Signs Temp Pulse Resp BP Pulse Ox 97.8 F 53 L 22 H 111/44 L 98 08/19/21 08:26 08/19/21 08:26 08/19/21 08:26 08/19/21 08:26 08/19/21 08:43 Oxygen Flow Rate (L/min) 1 Oxygen Delivery Method Room Air Weight: 159.6 kg Body Mass Index (BMI) 56.7 Intake & Output: Intake and Output for Last 24 Hours 08/17/21 08/18/21 08/19/21 23:59 23:59 23:59 Intake Total 1779.27 / 1899.27 1440 / 1440 191.7 / 191.7 Output Total 1900 / 2300 2050 / 2050 250 / 250 Balance -120.73 / -400.73 -610 / -610 -58.3 / -58.3 Lab / Micro Data Result Diagrams: 08/18/21 05:45 08/19/21 05:44 Labs: Laboratory Results - last 24 hr 08/18/21 08:42: Vitamin B12 831 08/18/21 11:04: POC Glucose 130 H 08/18/21 16:14: POC Glucose 144 H 08/18/21 21:32: POC Glucose 135 H 08/19/21 05:44: Sodium 136, Potassium 3.5, Chloride 97 L, Carbon Dioxide 31.0, Anion Gap 8, BUN 102 H*, Creatinine 2.53 H, Estim Creat Clear Calc 25.76, Est GFR (MDRD) Af Amer 33 L, Est GFR (MDRD) Non-Af 27 L, BUN/Creatinine Ratio 40.3 H , Glucose 118 H, Calcium 9.4, Magnesium 2.0 Micro: Microbiology 08/14/21 06:50 Blood Culture (Wb) - Right Hand Blood Culture - Final No growth in 5 days. 08/12/21 10:16 Blood Culture (Wb) - Right Hand Blood Culture - Final Staphylococcus aureus 08/13/21 08:20 Blood Culture (Wb) - Other Blood Culture - Final Staphylococcus aureus 08/11/21 12:15 Blood Culture (Wb) - Right Hand Blood Culture - Final Staphylococcus aureus 08/10/21 18:54 Blood Culture (Wb) - Other Blood Culture - Final Staphylococcus aureus 08/10/21 15:29 Blood Culture (Wb) - Other Bacteria Detection (PCR) - Final Staphylococcus aureus 08/10/21 15:29 Blood Culture (Wb) - Other Blood Culture - Final Staphylococcus aureus 08/10/21 14:25 Urine Catheter - Franco Urine Culture - Final Escherichia coli Staphylococcus aureus 08/12/21 18:02 Stool Stool Occult Blood (DAMIAN) - Final Occult Blood Positive 08/12/21 10:00 Nasal Secretion SARS-CoV-2 Antigen (Rapid) - Final 08/10/21 13:45 Mucosa - Nasopharyngeal Respiratory Panel (PCR) - Final Radiography Diagnostic Testing: Radiology Impression Chest X-Ray 08/18/21 19:30 IMPRESSION: Right sided PICC line terminating within the expected region of the superior vena cava. Pulmonary venous congestion associated with interstitial edema and/or an infectious process. Cardiomegaly. Electronically Signed: Ella Wallis MD at 20:10 EDT , Physical Exam Narrative Const: A&Ox3 HEENT: PERRLA, oral mucosa moist Cardio: S1 S2 RRR Resp: Lungs are clear to auscultation anteriorly Abdomen: Obese, normal bowel sound, soft, nontender, no guarding or rebound. Extremities: 2+ lower extremity edema Assessment & Plan Assessment/Plan (1) GAYE (acute kidney injury): PLAN: - The patient has normal baseline kidney function. His serum creatinine was 0.95 mg/dL on 06/21/2021. 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 -Serum creatinine peaked at 3.60 mg/dL in July with gradual improvement. -The patient admitted again on 08/11/2021 with volume overload/heart failure with preserved ejection fraction exacerbation. So, there may be some component of GAYE from cardiorenal syndrome as well. -Serum creatinine nadired at 2.06 mg/dL on 08/16/2021. Serum creatinine has been increasing again over the last 3 days to 2.53 mg/dL. -This may be secondary to overdiuresis resulting in decreased effective blood volume although the patient is still volume overloaded overall. -I agree with holding Lasix drip today. -Recheck renal function off of diuretic tomorrow. -There is no need for kidney replacement therapy today, but I did warn the patient that dialysis may be necessary at least temporarily. (2) Anemia: PLAN: -The patient likely has anemia of chronic disease. -Unfortunately, there is no role for MERLIN in the setting of GAYE. -Continue to monitor hemoglobin and transfuse if less than 7 g/dL. (3) Acute on chronic respiratory failure with hypoxia: PLAN: - The patient has multifactorial explanations for acute hypoxic respiratory failure. -He has exacerbation of heart failure with preserved ejection fraction, acute kidney injury predisposing volume overload, and possible COPD. -Holding Lasix drip today because of rising serum creatinine. -Monitor volume status closely. Another reason the patient may need hemodialysis will be worsening of volume overload since he is off of diuretic. (4) Bacteremia: PLAN: -The patient has persistent MSSA bacteremia. -The patient is currently on cefazolin at 2 g IV every 8 hours. -Current creatinine clearance may not be reflective of true GFR since renal function has been declining in the last 48 hours. -We may need to relook at the dosing of cefazolin tomorrow if renal function continues to worsen.
--- NOTE | 2021-08-19 09:33 | CASEMGMT ---
MIMI notified Joelen at [facility] via email that patient will likely be returning tomorrow. Leslie Caldera TATTOO DESIGNER LIANA
[2021-08-19 09:51] LABS: Bedside Glucose 114 mg/dL (74-106)
[2021-08-19] MEDS: Insulin Lispro 100 UNIT/ML INSULN.PEN SC (11:19)
[2021-08-19 11:26] LABS: Bedside Glucose 139 mg/dL (74-106)
--- NOTE | 2021-08-19 12:51 | CASEMGMT ---
Per Dr. Gallardo, pt's dose for antibx may change by tomorrow so new script will be needed. CM to follow. Davidson ALMONTE CM
--- NOTE | 2021-08-19 13:00 | PN.ID_ITS ---
Physical Exam Narrative Feeling ok, no fever, no diarrhea, knee sore Const alert and no apparent distress General Appearance: cooperative Resp normal air movement and clear to auscultation bilaterally Cardio regular rate and regular rhythm GI soft to palpation, non-tender and non-distended Skin no rashes or lesions noted ID ID: Route of nutrition/ use of supplements: [] Nutritional Intake: [] IV Site: [] Franco Catheter: [] Assessment & Plan Assessment/Plan (1) MSSA bacteremia: PLAN: Bcx with MSSA again. Ucx with ecoli. 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 Splinter hemorrhages seen on fingers. Cont cefazolin. Neg SHLOMO. Repeat bcx neg at 72+ hours at this point. Plan is for 6 weeks iv cefazolin, stop date 09/25/21. ID followup in 2 weeks. May need longer course of po abx once iv is complete due to suspected joint involvement as po tential explanation for recurrence. Adjusting abx dose due to worsened Cr. Will follow
[2021-08-19 16:25] LABS: Bedside Glucose 126 mg/dL (74-106)
[2021-08-19] MEDS: Cefazolin 1 GM/50 ML BAG IV (20:53)
[2021-08-19] MEDS: Latanoprost 0.005% 1 Bottle 1 DRP EACH EYE (20:58)
[2021-08-19 21:46] LABS: Bedside Glucose 150 mg/dL (74-106)
--- NOTE | 2021-08-19 23:30 | NURSING ---
Report given to Dena ALMONTE
[2021-08-20] VITALS (13 sets, daily range): BP systolic 102–127; BP diastolic 63–81; PULSE 46–57; RESP 17–28; TEMP 36.4–36.7; O2SAT 95–97
[2021-08-20] MEDS: Levothyroxine 25 MCG TABLET PO (06:30)
[2021-08-20] MEDS: Ipratropium/Albuterol Sulfate 3 ML AMPUL.NEB INHALATION ×4 (06:33→19:32)
[2021-08-20 06:37] LABS: Absolute Lymphocyte Count 0.55 X10^3/uL (0.83-4.51); Basophil# 0.05 X10^3/uL; Basophil% 0.5 % (0-1); Eosinophil# 0.15 X10^3/uL; Eosinophils% 1.5 % (0-5); Hematocrit 28.9 % (40-54); Hemoglobin 8.3 g/dL (13.0-16.5); Lymphocyte # 0.55 X10^3/ul (0.83-4.51); Lymphocyte % 5.5 % (19-41); Mean Corp Hgb Conc 28.7 g/dL (32-36); Mean Corpuscular Hgb 26.2 pg (27.0-32.0); Mean Corpuscular Volume 91.2 fL (80-94); Mean Platelet Vol. 9.9 fl (6.2-12.0); Monocyte# 0.81 X10^3/uL; Monocyte% 8.1 % (0-10); NRBC Flagged by Analyzer 0.4 % (0-5); Neutrophil # 7.99 X10^3/uL (2.7-7.7); Neutrophil % 79.9 % (47-70); POSITIVE COUNT YES; POSITIVE DIFFERENTIAL YES; POSITIVE MORPHOLOGY YES; Platelet Count 294 K/mm3 (150-450); RBC Distribution Width CV 21.1 % (11.6-14.6); Red Blood Count 3.17 M/mm3 (4.6-6.2)
[2021-08-20 06:39] LABS: Differential Indicated SCAN CRITERIA MET
[2021-08-20 07:01] LABS: Anisocytosis 1+; Differential Comment SCANNED
[2021-08-20 07:02] LABS: Platelet Estimate ADEQUATE (ADEQ)
[2021-08-20 07:12] LABS: Anion Gap 8 (5-15); BUN 103 mg/dL (7-18); BUN/Creat Ratio 38.1 RATIO (10-20); Calcium,Total 9.3 mg/dL (8.5-10.1); Chloride 101 mmol/L (98-107); EST Glomerular Filtration Rate 25 mL/min (>60); Est Glom Filt Rate - Afr Amer 30 mL/min (>60); Estimated Creatinine Clearance 24.14 ml/min; Glucose 102 mg/dL (74-106); Potassium 5.2 mmol/L (3.5-5.1); Sodium Level 135 mmol/L (136-145)
--- NOTE | 2021-08-20 08:14 | PN.HOSP_ITS ---
Subjective Subjective Feels well. Objective Data Objective Data Vital Signs: Vital Signs Temp Pulse Resp BP Pulse Ox 36.5 C L 46 L 25 H 102/67 97 08/20/21 03:24 08/20/21 06:35 08/20/21 06:35 08/20/21 03:24 08/20/21 06:35 Oxygen Flow Rate (L/min) 1 Oxygen Delivery Method Room Air Weight: 161.2 kg Body Mass Index (BMI) 56.7 Intake & Output: Intake and Output for Last 24 Hours 08/18/21 08/19/21 08/20/21 23:59 23:59 23:59 Intake Total 1440 / 1440 981.7 / 981.7 Output Total 2049 / 2049 800 / 800 550 / 550 Balance -610 / -610 181.7 / 181.7 -550 / -550 Lab / Micro Data Result Diagrams: 08/20/21 06:10 08/20/21 06:10 Labs: Laboratory Results - last 24 hr 08/19/21 08:23: POC Glucose 114 H 08/19/21 11:15: POC Glucose 139 H 08/19/21 16:09: POC Glucose 126 H 08/19/21 20:45: POC Glucose 150 H 08/20/21 06:10: WBC 10.0, RBC 3.17 L, Hgb 8.3 L, Hct 28.9 L, MCV 91.2 D, MCH 26.2 L, MCHC 28.7 L D, RDW Std Deviation 69.0 H, RDW Coeff of Jory 21.1 H, Plt Count 294, MPV 9.9, Immature Gran % (Auto) 4.500 H, Neut % (Auto) 79.9 H, Lymph % (Auto) 5.5 L, [place] % (Auto) 8.1, Eos % (Auto) 1.5, Baso % (Auto) 0.5, Absolute Neuts (auto) 8.0 H, Absolute Lymphs (auto) 0.55 L, Nucleated RBC % 0.4, Differential Comment SCANNED, Platelet Estimate ADEQUATE, Anisocytosis 1+ 08/20/21 06:10: Sodium 135 L, Potassium 5.2 H, Chloride 101, Carbon Dioxide 26.0, Anion Gap 8, BUN 103 H*, Creatinine 2.70 H, Estim Creat Clear Calc 24.14, Est GFR (MDRD) Af Amer 30 L, Est GFR (MDRD) Non-Af 25 L, BUN/Creatinine Ratio 38.1 H, Glucose 102, Calcium 9.3 Micro: Microbiology 08/14/21 06:50 Blood Culture (Wb) - Right Hand Blood Culture - Final No growth in 5 days. 08/12/21 10:16 Blood Culture (Wb) - Right Hand Blood Culture - Final Staphylococcus aureus 08/13/21 08:20 Blood Culture (Wb) - Other Blood Culture - Final Staphylococcus aureus 08/11/21 12:15 Blood Culture (Wb) - Right Hand Blood Culture - Final Staphylococcus aureus 08/10/21 18:54 Blood Culture (Wb) - Other Blood Culture - Final Staphylococcus aureus 08/10/21 15:29 Blood Culture (Wb) - Other Bacteria Detection (PCR) - Final Staphylococcus aureus 08/10/21 15:29 Blood Culture (Wb) - Other Blood Culture - Final Staphylococcus aureus 08/10/21 14:25 Urine Catheter - Franco Urine Culture - Final Escherichia coli Staphylococcus aureus 08/12/21 18:02 Stool Stool Occult Blood (DAMIAN) - Final Occult Blood Positive 08/12/21 10:00 Nasal Secretion SARS-CoV-2 Antigen (Rapid) - Final 08/10/21 13:45 Mucosa - Nasopharyngeal Respiratory Panel (PCR) - Final Physical Exam Const alert and no apparent distress Resp normal respiratory effort, no retractions, no use of accessory muscles and clear to auscultation bilaterally Cardio regular rate, regular rhythm, S1 normal heart sound and S2 normal heart sound GI normal to inspection, nondistended, normoactive bowel sounds, soft to palpation, non-tender and non-distended Extremity General Extremity: edema Skin Skin Narrative: venous stasis dermatitis. Neuro Sensorium / Orientation: awake and alert Assessment & Plan Assessment/Plan (1) Acute renal failure: QUALIFIERS: Acute renal failure type: unspecified Qualified Code(s): N17.9 - Acute kidney failure, unspecified (2) CKD stage 4 due to type 1 diabetes mellitus: (3) COPD exacerbation: (4) CHF exacerbation: QUALIFIERS: Heart failure type: diastolic Qualified Code(s): I50.33 - Acute on chronic diastolic (congestive) heart failure PLAN: 1. Acute on chronic hypoxic respiratory failure due to COPD exacerbation and CHF exacerbation: * History: * 08/11: ABG was reviewed yesterday on 08/10. 7.40/43/133 on BiPAP suggestive of hypoxia. No hypercarbia. D-dimer was elevated. Venous duplex was negative for DVT. Furthermore VQ scan was done which reported low probability of PE. Chest x-ray shows increased bronchovascular markings, congestion suggestive of pulmonary edema. * 08/12: Patient remains intermittently on BiPAP and nasal cannula. Currently on 3 L of oxygen. Labored breathing. * 08/13/2021: Continue with IV diuresis * 08/14/2021: Continue with IV diuresis, his creatinine is stable appreciate nephrology's assistance * 08/16/2021: Creatinine is improving with the IV diuresis as is his shortness of breath therefore we will continue. * 08/20: on room air. 2. MSSA bacteremia: * During admission in June 2020, SHLOMO because of MSSA bacteremia in June 2019 did not show any vegetation reported normal mitral tricuspid valve. Mild diffuse aortic valve thickening. At that time patient was treated with IV cefazolin. * This time prelim blood cultures x2 shows a staph, mec-A not detected most likely MSSA. Discussed with ID and requested consult. * IV cefepime. Patient completed 3 doses of Zithromax. * SHLOMO on 08/13 negative for endocardititis * Patient also had left pain and left shoulder replacement in the past therefore x-rays of left shoulder and left knee ordered. Xray unremarkable for obvious osteomyelitis. * History * 08/12: Discussed with ID. Agreed with SHLOMO tomorrow AM. There is tenderness over left knee. Patient had left shoulder replacement and ROM is very restricted/limited. * 08/13/2021: SHLOMO was negative for any valvular vegetations. We will continue with IV antibiotics per ID. He did have an MSSA bacteremia back in June etiology this time is likely the decubitus ulcer. Appreciate ID assistance. Attempted arthrocenteses of left shoulder and knee were dry taps. * 08/15/2021: Blood cultures are continue to come back positive we will recheck another 1 today we will discuss the situation with ID tomorrow when they are in the hospital * 08/16/2021: Blood cultures from 08/14/2021 are negative, cultures from 08 15 are still pending. Continue with cefepime at this time. Cultures from [place] demonstrate beta-lactamase resistance and the MSSA that they had gotten on their cultures. * 08/17: on cefazolin. plan for 6 weeks of IV abx. 3. Acute on chronic HFpEF/second-degree AV block with A-V dissociation: * Patient had last echo in June 2021 shows EF 65%, stage I diastolic dysfunction. Study was technically difficult due to body habitus and valves could not be well visualized. Heart failure core measures including intake and output, fluid restriction less than 1500 mL, daily weight monitoring, kidney and electrolytes monitoring. Serial troponins ordered. * On Lasix drip. * History: * 08/11: Patient was a started on Lasix drip by my colleague last night. Ophthalmic Medical Technician consult reviewed. 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 Peak creatinine was 3.6 slowly trending down. Serial troponins negative. ACS ruled out. TSH normal. * 08/13/2021: Overnight he had episodes of V. tach, cardiology evaluated the strips and felt that he had a second-degree AV block with A-V dissociation. We will stop beta-blockers and consult cardiology for continued management while inpatient * 08/14/2021: No abnormal rhythms overnight, cardiology is following and will likely need a pacemaker placed after he has cleared the infections which can likely be in several weeks. * 08/19: furosemide gtt discontinued given GAYE 4. Possible COPD exacerbation: * Patient never had PFT done last discharge was advised to follow-up in pulmonary clinic but patient never made it. Patient has been never a smoker. 5. Hypokalemia * replace * complicated by hypomag 6. Hypomagnesemia * improved with replacement 6. Acute kidney injury on CKD G4: * Recent renal ultrasound unremarkable. * Patient recently had renal biopsy in [facility], that showed IRBN 2/2 MSSA infection * Patient follows [place] tool inspector and is consulted. As Xarelto is more renally excreted therefore will change to Eliquis. 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 Peak creatinine was 3.6 trending down. Lasix drip increased to 20 mg/h. Metolazone was added. Monitor intake and output. Previous emesis and Bactrim might be the source for postinfectious glomerulonephritis. * 08/19: cr up to 2.53, will dc furosemide gtt. Now with myoclonus. DW Dr. Arita, plan to watch another night. If worse may require STITCHING MACHINE FEEDER OR OFFBEARER. * 08/20: worse. Myoclonus improved. No need for STITCHING MACHINE FEEDER OR OFFBEARER yet. 7. Chronic normocytic anemia- * stable * patient hemoglobin is 7.8. Patient hemoglobin has been between 7.5-8.2 recently in July 2021. Last 1 in our system 7.6 on 07/20. * Continue PPI. * Stool positive for occult blood 07/14/21. * Monitor CBC * History: * 08/12: Troponin globin from 7.5-7.0. Low-dose Eliquis 2.5 mg twice daily discontinued. Bilateral SCDs. Stool for occult blood ordered. Monitor H&H in the evening. Monitor CBC daily. * 08/16/2021: Gastroenterology was consulted and wanted to hold off on any type of EGD given all of his other medical issues at this time. We will continue to monitor CBC * 08/18: iron 49, ferritin elevated at 508. Folate and B12 WNL. 8. Type 2 diabetes [id number] ACH coverage Humalog sliding scale continue home insulin regimen. We will monitor and make adjustments as necessary 9. Obesity hypoventilation syndrome/probable NILDA: The patient will need formal pulmonary clinic evaluation for PFT and sleep study. Continue BiPAP 10. Debility/failure to thrive, very limited ADL, morbid obesity-PT OT evaluation. To go to [facility] when medically ready. 11. DVT: * apixaban held given anemia and heme positive stools * duplex on the was negative VTE 12. VTE prophylaxis: SCDs Charges/Coding Visit Charges Inpatient E&M: 61559 Subs Hosp L2
[2021-08-20] MEDS: Insulin Lispro 100 UNIT/ML INSULN.PEN SC ×3 (08:25→16:14)
[2021-08-20] MEDS: Pantoprazole Sodium 40 MG Tablet PO ×2 (08:26→20:54)
[2021-08-20] MEDS: guaiFENesin 1,200 MG Tablet 1200 MG PO ×2 (08:26→20:54)
[2021-08-20] MEDS: Menthol/Lanolin/Calamine/Znox 113 GM Tube 1 APPLIC TOPICAL ×2 (08:26→20:54)
[2021-08-20] MEDS: Potassium Chloride Oral Tablet 20 MEQ 40 MEQ PO (08:29)
[2021-08-20] MEDS: Cefazolin 1 GM/50 ML BAG IV ×2 (08:34→20:53)
--- NOTE | 2021-08-20 09:00 | PN.RENAL_ITS ---
Subjective Subjective Following for GAYE Resting in bed, no overnight events. Denies any nausea or vomiting, ate breakfast this morning. On room air. Objective Data Objective Data Vital Signs: Vital Signs Temp Pulse Resp BP Pulse Ox 97.7 F L 49 L 25 H 102/67 97 08/20/21 03:24 08/20/21 07:00 08/20/21 06:35 08/20/21 03:24 08/20/21 06:35 Oxygen Flow Rate (L/min) 1 Oxygen Delivery Method Room Air Weight: 161.2 kg Body Mass Index (BMI) 56.7 Intake & Output: Intake and Output for Last 24 Hours 08/18/21 08/19/21 08/20/21 23:59 23:59 23:59 Intake Total 1440 / 1440 981.7 / 981.7 Output Total 2049 / 2049 800 / 800 550 / 550 Balance -610 / -610 181.7 / 181.7 -550 / -550 Lab / Micro Data Result Diagrams: 08/20/21 06:10 08/20/21 06:10 Labs: Laboratory Results - last 24 hr 08/19/21 08:23: POC Glucose 114 H 08/19/21 11:15: POC Glucose 139 H 08/19/21 16:09: POC Glucose 126 H 08/19/21 20:45: POC Glucose 150 H 08/20/21 06:10: WBC 10.0, RBC 3.17 L, Hgb 8.3 L, Hct 28.9 L, MCV 91.2 D, MCH 26.2 L, MCHC 28.7 L D, RDW Std Deviation 69.0 H, RDW Coeff of Jory 21.1 H, Plt Count 294, MPV 9.9, Immature Gran % (Auto) 4.500 H, Neut % (Auto) 79.9 H, Lymph % (Auto) 5.5 L, [place] % (Auto) 8.1, Eos % (Auto) 1.5, Baso % (Auto) 0.5, Absolute Neuts (auto) 8.0 H, Absolute Lymphs (auto) 0.55 L, Nucleated RBC % 0.4, Differential Comment SCANNED, Platelet Estimate ADEQUATE, Anisocytosis 1+ 08/20/21 06:10: Sodium 135 L, Potassium 5.2 H, Chloride 101, Carbon Dioxide 26.0, Anion Gap 8, BUN 103 H*, Creatinine 2.70 H, Estim Creat Clear Calc 24.14, Est GFR (MDRD) Af Amer 30 L, Est GFR (MDRD) Non-Af 25 L, BUN/Creatinine Ratio 38.1 H, Glucose 102, Calcium 9.3 Micro: Microbiology 08/14/21 06:50 Blood Culture (Wb) - Right Hand Blood Culture - Final No growth in 5 days. 08/12/21 10:16 Blood Culture (Wb) - Right Hand Blood Culture - Final Staphylococcus aureus 08/13/21 08:20 Blood Culture (Wb) - Other Blood Culture - Final Staphylococcus aureus 08/11/21 12:15 Blood Culture (Wb) - Right Hand Blood Culture - Final Staphylococcus aureus 08/10/21 18:54 Blood Culture (Wb) - Other Blood Culture - Final Staphylococcus aureus 08/10/21 15:29 Blood Culture (Wb) - Other Bacteria Detection (PCR) - Final Staphylococcus aureus 08/10/21 15:29 Blood Culture (Wb) - Other Blood Culture - Final Staphylococcus aureus 08/10/21 14:25 Urine Catheter - Franco Urine Culture - Final Escherichia coli Staphylococcus aureus 08/12/21 18:02 Stool Stool Occult Blood (DAMIAN) - Final Occult Blood Positive 08/12/21 10:00 Nasal Secretion SARS-CoV-2 Antigen (Rapid) - Final 08/10/21 13:45 Mucosa - Nasopharyngeal Respiratory Panel (PCR) - Final Physical Exam Narrative Const: A&Ox3 HEENT: PERRLA, oral mucosa moist Cardio: S1 S2 RRR Resp: Lungs are clear to auscultation anteriorly Abdomen: Obese, normal bowel sound, soft, nontender, no guarding or rebound. Extremities: 2+ lower extremity edema. +asterixis Assessment & Plan Assessment/Plan (1) GAYE (acute kidney injury): PLAN: - The patient has normal baseline kidney function. His serum creatinine was 0.95 mg/dL on 06/21/2021. 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 -Serum creatinine peaked at 3.60 mg/dL in July with gradual improvement. -The patient admitted again on 08/11/2021 with volume overload/heart failure with preserved ejection fraction exacerbation. So, there may be some component of GAYE from cardiorenal syndrome as well. -Serum creatinine nadired at 2.06 mg/dL on 08/16/2021. Serum creatinine has been increasing again over the last 4 days, now up to 2.70 mg/dL, BUN 103. UOP 550ml so far today -This may be secondary to overdiuresis resulting in decreased effective blood volume although the patient is still volume overloaded overall. -I agree with holding Lasix drip today (lasix gtt stopped 08/19). -Recheck renal function off of diuretic tomorrow. -There is no need for kidney replacement therapy today, but I did discuss with the patient that dialysis may be necessary at least temporarily. I had a discussion with patient today about dialysis, risk and benefit of dialysis and explained role of dialysis. He seemed to understand, questions were answered. - Next 24-48hrs will have better idea if patient will need DICE PERSON. K+ 5.2, will stop oral potassium supplements and add low potassium diet restrictions. - Discussed plan with Dr. Basilio (2) Anemia: PLAN: -The patient likely has anemia of chronic disease. -Unfortunately, there is no role for MERLIN in the setting of GAYE. -Continue to monitor hemoglobin and transfuse if less than 7 g/dL. (3) Acute on chronic respiratory failure with hypoxia: PLAN: - The patient has multifactorial explanations for acute hypoxic respiratory failure. -He has exacerbation of heart failure with preserved ejection fraction, acute kidney injury predisposing volume overload, and possible COPD. -Holding Lasix drip because of rising serum creatinine. -Monitor volume status closely. Another reason the patient may need hemodialysis will be worsening of volume overload since he is off of diuretic. (4) Bacteremia: PLAN: -The patient has persistent MSSA bacteremia. -The patient is currently on cefazolin at 1gm every 12hrs
[2021-08-20 09:23] LABS: Pathologist Review Reviewed
[2021-08-20 11:35] LABS: Bedside Glucose 119 mg/dL (74-106)
--- NOTE | 2021-08-20 13:03 | PN.CARD_ITS ---
Objective Data Vital Signs: Vital Signs Temp Pulse Resp BP Pulse Ox 98.1 F 56 L 26 H 121/79 H 95 08/20/21 09:24 08/20/21 11:01 08/20/21 11:01 08/20/21 09:24 08/20/21 09:24 Oxygen Flow Rate (L/min) 1 Oxygen Delivery Method Room Air Weight: 355 lb 6.162 oz Body Mass Index (BMI) 56.7 Intake & Output: Intake and Output for Last 24 Hours 08/18/21 08/19/21 08/20/21 23:59 23:59 23:59 Intake Total 1440 / 1440 981.7 / 981.7 50 / 50 Output Total 2049 / 2049 800 / 800 550 / 550 Balance -610 / -610 181.7 / 181.7 -500 / -500 Lab / Micro Data Result Diagrams: 08/20/21 06:10 08/20/21 06:10 Labs: Laboratory Results - last 24 hr 08/18/21 05:45: Diff Path Review Reviewed 08/19/21 16:09: POC Glucose 126 H 08/19/21 20:45: POC Glucose 150 H 08/20/21 06:10: WBC 10.0, RBC 3.17 L, Hgb 8.3 L, Hct 28.9 L, MCV 91.2 D, MCH 26.2 L, MCHC 28.7 L D, RDW Std Deviation 69.0 H, RDW Coeff of Jory 21.1 H, Plt Count 294, MPV 9.9, Immature Gran % (Auto) 4.500 H, Neut % (Auto) 79.9 H, Lymph % (Auto) 5.5 L, [place] % (Auto) 8.1, Eos % (Auto) 1.5, Baso % (Auto) 0.5, Absolute Neuts (auto) 8.0 H, Absolute Lymphs (auto) 0.55 L, Nucleated RBC % 0.4, Differential Comment SCANNED, Platelet Estimate ADEQUATE, Anisocytosis 1+ 08/20/21 06:10: Sodium 135 L, Potassium 5.2 H, Chloride 101, Carbon Dioxide 26.0, Anion Gap 8, BUN 103 H*, Creatinine 2.70 H, Estim Creat Clear Calc 24.14, Est GFR (MDRD) Af Amer 30 L, Est GFR (MDRD) Non-Af 25 L, BUN/Creatinine Ratio 38.1 H, Glucose 102, Calcium 9.3 08/20/21 11:29: POC Glucose 119 H Micro: Microbiology 08/15/21 07:58 Blood Culture (Wb) - Other Blood Culture - Final No growth in 5 days. Cardiology Labs/Tests 08/20/21 06:10: WBC 10.0, RBC 3.17 L, Hgb 8.3 L, Hct 28.9 L, MCV 91.2 D, MCH 26.2 L, MCHC 28.7 L D, Plt Count 294, MPV 9.9, Immature Gran % (Auto) 4.500 H, Neut % (Auto) 79.9 H, Lymph % (Auto) 5.5 L, [place] % (Auto) 8.1, Eos % (Auto) 1.5, Baso % (Auto) 0.5, Absolute Neuts (auto) 8.0 H, Nucleated RBC % 0.4 08/20/21 06:10: Sodium 135 L, Potassium 5.2 H, Chloride 101, Carbon Dioxide 26.0, Anion Gap 8, BUN 103 H*, Creatinine 2.70 H, Est GFR (MDRD) Af Amer 30 L, Est GFR (MDRD) Non-Af 25 L, BUN/Creatinine Ratio 38.1 H, Glucose 102, Calcium 9.3 Rhythm: EKG: ECHO: Stress Test: Cardiac Cath: PCI: CT Surgery: Holter monitor: EPS: PPM: CXR: Chest CT Scan: Physical Exam Const alert, oriented x3 and no apparent distress General Appearance: cooperative HEENT hearing grossly normal bilaterally Eyes EOMs intact bilaterally Neck General: normal visual inspection Chest inspection of chest normal and palpation of chest normal Resp normal respiratory effort Effort and Inspection: decreased respiratory effort Auscultation: diminished lung sounds Cardio S1 normal heart sound and S2 normal heart sound Jugular Venous Distention: JVD Rhythm: abnormal rhythm irregularly irregular GI normal to inspection, nondistended, normoactive bowel sounds Extremity normal capillary refill and no pedal edema General Extremity: edema Skin no rashes or lesions noted Neuro oriented x3 and CN's II-XII intact bilaterally Psych Appearance: grossly normal and appropriate Assessment & Plan Assessment/Plan (1) CHF exacerbation: QUALIFIERS: Heart failure type: diastolic Qualified Code(s): I50.33 - Acute on chronic diastolic (congestive) heart failure PLAN: He does have an exacerbation of congestive heart failure. The above is likely secondary to diastolic dysfunction. I would recommend we continue the IV diuretics at this time. * He is also noted to be anemic and this may be contributing to some of his shortness of breath (2) Heart block AV second degree: PLAN: He does have intermittent second-degree heart block with A-V dissociation. Due to his bacteremia as well as his cellulitis and likely infection I do not think that he is a candidate for permanent pacemaker implantation. I would suggest that we hold off on giving any beta-qing and will pursue expectant management. * Ideally we would like to hold off until the patient has had appropriate antibiotics for the duration of time and has been free of any infection for 1 to 2 weeks before implanting any device * Will also suggest ID input regarding the above. His risk for an infection for an implanted device will be rather high at this time. * Hopefully with discontinuing his beta-qing his rhythm would continue to improve over time. (3) Bacteremia: PLAN: He does have bacteremia and the SHLOMO did not demonstrate any evidence of valvular vegetation. It appears that his bacteremia is from other sources rather than cardiac.
--- NOTE | 2021-08-20 13:47 | CASEMGMT ---
SW notified via email, Joleen, Lula, and Barbara at [facility] that patient will be at [facility] through the weekend as his Creatinine has gone up and patient may need dialysis. Leslie GAINES
--- NOTE | 2021-08-20 14:28 | CHAPLAIN ---
Type of Pastoral Visit _x__ Initial Visit ___ Follow-up Visit ___ On-call Visit ___ General Patient Visit ___ Spiritual Assessment ___ Family Conference ___ Bereavement ___ Rapid Response ___ Code Blue ___ Other (describe below) Pastoral Care Referral From _x__ Patient ___ Family ___ Nurse ___ Physician ___ Naval Marine Engineer ___ Wholesale Agronomist ___ Other (describe below) Sacrament/Intervention ___ Active listening ___ Anointing ___ Confucianism ___ Bereavement ___ Communion ___ Mckenzie exploration ___ ___ Life review _x__ Prayer ___ Reconciliation ___ Sacrament of Sick _x__ Supportive presence ___ Wedding ___ Other (describe below) Pastoral Comments patient is awake but appears to be sleepy or with low affect and few words; pt is ok with visit and prayer; however, pt does not engage in conversation
--- NOTE | 2021-08-20 16:15 | PCM.PN.ID ---
Physical Exam Narrative No fever, knee hurts, no new issues Const alert General Appearance: cooperative Resp normal air movement and clear to auscultation bilaterally Cardio regular rate and regular rhythm GI non-tender and non-distended Extremity Extremity Narrative: L knee pain with movement Skin no rashes or lesions noted ID ID: Route of nutrition/ use of supplements: [] Nutritional Intake: [] IV Site: [] Franco Catheter: [] Assessment & Plan Assessment/Plan (1) MSSA bacteremia: PLAN: Bcx with MSSA again. Ucx with ecoli. 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 Splinter hemorrhages seen on fingers. Cont cefazolin. Neg SHLOMO. Repeat bcx neg at 72+ hours at this point. Plan is for 6 weeks iv cefazolin, stop date 09/25/21. ID followup in 2 weeks. May need longer course of po abx once iv is complete due to suspected joint involvement as potential explanation for recurrence. Adjusted abx dose due to worsened Cr. May need ortho re-eval if knee continues to be so sore. Will follow
[2021-08-20 16:31] LABS: Bedside Glucose 111 mg/dL (74-106)
--- NOTE | 2021-08-20 19:54 | NURSING ---
This RN spoke w/ Alison Blunt pt's POA, gave update about the pt's condition. Alison's thankful for the update and will be calling her back from the pt's room to talk to the pt.
[2021-08-20] MEDS: Latanoprost 0.005% 1 Bottle 1 DRP EACH EYE (20:53)
[2021-08-20 22:20] LABS: Bedside Glucose 110 mg/dL (74-106)
[2021-08-21] VITALS (16 sets, daily range): BP systolic 97–133; BP diastolic 53–74; PULSE 46–58; RESP 14–30; TEMP 36.4–36.5; O2SAT 95–98
[2021-08-21 05:03] LABS: Absolute Lymphocyte Count 0.62 X10^3/uL (0.83-4.51); Absolute Neutrophil Count 9.4 X10^3/uL (2.0-7.7); Basophil# 0.01 X10^3/uL; Basophil% 0.1 % (0-1); Eosinophil# 0.17 X10^3/uL; Eosinophils% 1.5 % (0-5); Hematocrit 26.3 % (40-54); Hemoglobin 7.9 g/dL (13.0-16.5); Lymphocyte # 0.62 X10^3/ul (0.83-4.51); Lymphocyte % 5.5 % (19-41); Mean Corpuscular Hgb 25.9 pg (27.0-32.0); Mean Corpuscular Volume 86.2 fL (80-94); Mean Platelet Vol. 9.6 fl (6.2-12.0); Monocyte# 0.84 X10^3/uL; Monocyte% 7.4 % (0-10); NRBC Flagged by Analyzer 0.3 % (0-5); Neutrophil # 9.36 X10^3/uL (2.7-7.7); Neutrophil % 82.5 % (47-70); POSITIVE MORPHOLOGY YES; Platelet Count 317 K/mm3 (150-450); RBC Distribution Width CV 20.6 % (11.6-14.6); RBC Distribution Width SD 62.6 fl (35.1-43.9); Red Blood Count 3.05 M/mm3 (4.6-6.2); White Blood Count 11.3 K/mm3 (4.4-11.0)
[2021-08-21 05:08] LABS: Differential Indicated SCAN CRITERIA MET
[2021-08-21 05:48] LABS: Anisocytosis 1+; Differential Comment SCANNED; Microcytosis 1+
[2021-08-21 05:50] LABS: Albumin, Serum 1.4 g/dL (3.2-5.0); Anion Gap 7 (5-15); BUN 110 mg/dL (7-18); BUN/Creat Ratio 38.2 RATIO (10-20); Calcium,Total 9.7 mg/dL (8.5-10.1); Chloride 101 mmol/L (98-107); Creatinine, Serum 2.88 mg/dL (0.70-1.30); EST Glomerular Filtration Rate 23 mL/min (>60); Est Glom Filt Rate - Afr Amer 28 mL/min (>60); Estimated Creatinine Clearance 22.63 ml/min; Glucose 107 mg/dL (74-106); Phosphorus 4.2 mg/dL (2.5-4.9); Potassium 4.8 mmol/L (3.5-5.1); Sodium Level 136 mmol/L (136-145)
[2021-08-21] MEDS: Levothyroxine 25 MCG TABLET PO (06:35)
[2021-08-21] MEDS: Ipratropium/Albuterol Sulfate 3 ML AMPUL.NEB INHALATION ×4 (07:14→19:44)
[2021-08-21] MEDS: Insulin Lispro 100 UNIT/ML INSULN.PEN SC ×3 (08:03→16:21)
[2021-08-21 08:10] LABS: Bedside Glucose 103 mg/dL (74-106)
--- NOTE | 2021-08-21 08:59 | PN.HOSP_ITS ---
Subjective Subjective Still with pain left knee and left shoulder. Has had left shoulder issues previously and history of shoulder replacement. Objective Data Objective Data Vital Signs: Vital Signs Temp Pulse Resp BP Pulse Ox 36.4 C L 46 L 16 97/53 L 97 08/21/21 03:12 08/21/21 07:14 08/21/21 07:14 08/21/21 03:12 08/21/21 07:14 Oxygen Flow Rate (L/min) 2 Oxygen Delivery Method Nasal Cannula Weight: 160 kg Body Mass Index (BMI) 56.7 Intake & Output: Intake and Output for Last 24 Hours 08/19/21 08/20/21 08/21/21 23:59 23:59 23:59 Intake Total 981.7 / 981.7 730 / 730 80 / 80 Output Total 800 / 800 850 / 850 200 / 200 Balance 181.7 / 181.7 -120 / -120 -120 / -120 Lab / Micro Data Result Diagrams: 08/21/21 04:53 08/21/21 04:53 Labs: Laboratory Results - last 24 hr 08/18/21 05:45: Diff Path Review Reviewed 08/20/21 11:29: POC Glucose 119 H 08/20/21 16:12: POC Glucose 111 H 08/20/21 20:51: POC Glucose 110 H 08/21/21 04:53: Sodium 136, Potassium 4.8, Chloride 101, Carbon Dioxide 28.0, Anion Gap 7, BUN 110 H*, Creatinine 2.88 H, Estim Creat Clear Calc 22.63, Est GFR (MDRD) Af Amer 28 L, Est GFR (MDRD) Non-Af 23 L, BUN/Creatinine Ratio 38.2 H , Glucose 107 H, Calcium 9.7, Phosphorus 4.2, Albumin 1.4 L 08/21/21 04:53: WBC 11.3 H, RBC 3.05 L, Hgb 7.9 L, Hct 26.3 L, MCV 86.2 D, MCH 25.9 L, MCHC 30.0 L, RDW Std Deviation 62.6 H, RDW Coeff of Jory 20.6 H, Plt Count 317, MPV 9.6, Immature Gran % (Auto) 3.000 H, Neut % (Auto) 82.5 H, Lymph % (Auto) 5.5 L, [place] % (Auto) 7.4, Eos % (Auto) 1.5, Baso % (Auto) 0.1, Absolute Neuts (auto) 9.4 H, Absolute Lymphs (auto) 0.62 L, Nucleated RBC % 0.3, Differential Comment SCANNED, Anisocytosis 1+, Microcytosis 1+ 08/21/21 07:53: POC Glucose 103 Micro: Microbiology 08/15/21 07:58 Blood Culture (Wb) - Other Blood Culture - Final No growth in 5 days. 08/14/21 06:50 Blood Culture (Wb) - Right Hand Blood Culture - Final No growth in 5 days. 08/12/21 10:16 Blood Culture (Wb) - Right Hand Blood Culture - Final Staphylococcus aureus 08/13/21 08:20 Blood Culture (Wb) - Other Blood Culture - Final Staphylococcus aureus 08/11/21 12:15 Blood Culture (Wb) - Right Hand Blood Culture - Final Staphylococcus aureus 08/10/21 18:54 Blood Culture (Wb) - Other Blood Culture - Final Staphylococcus aureus 08/10/21 15:29 Blood Culture (Wb) - Other Bacteria Detection (PCR) - Final Staphylococcus aureus 08/10/21 15:29 Blood Culture (Wb) - Other Blood Culture - Final Staphylococcus aureus 08/10/21 14:25 Urine Catheter - Franco Urine Culture - Final Escherichia coli Staphylococcus aureus 08/12/21 18:02 Stool Stool Occult Blood (DAMIAN) - Final Occult Blood Positive 08/12/21 10:00 Nasal Secretion SARS-CoV-2 Antigen (Rapid) - Final 08/10/21 13:45 Mucosa - Nasopharyngeal Respiratory Panel (PCR) - Final Physical Exam Const alert and no apparent distress Resp normal respiratory effort, no retractions, no use of accessory muscles and clear to auscultation bilaterally Cardio regular rate, regular rhythm, S1 normal heart sound and S2 normal heart sound GI normal to inspection, nondistended, normoactive bowel sounds, soft to palpation, non-tender and non-distended GI Narrative: obese Extremity Extremity Narrative: difficult to appreciate if knee effusion on left. limited mobility of LUE General Extremity: edema Assessment & Plan Assessment/Plan (1) Acute renal failure: QUALIFIERS: Acute renal failure type: unspecified Qualified Code(s): N17.9 - Acute kidney failure, unspecified (2) CKD stage 4 due to type 1 diabetes mellitus: (3) COPD exacerbation: (4) CHF exacerbation: QUALIFIERS: Heart failure type: diastolic Qualified Code(s): I50.33 - Acute on chronic diastolic (congestive) heart failure PLAN: 1. Acute on chronic hypoxic respiratory failure due to COPD exacerbation and CHF exacerbation: * History: * 08/11: ABG was reviewed yesterday on 08/10. 7.40/43/133 on BiPAP suggestive of hypoxia. No hypercarbia. D-dimer was elevated. Venous duplex was negative for DVT. Furthermore VQ scan was done which reported low probability of PE. Chest x-ray shows increased bronchovascular markings, congestion suggestive of pulmonary edema. * 08/12: Patient remains intermittently on BiPAP and nasal cannula. Currently on 3 L of oxygen. Labored breathing. * 08/13/2021: Continue with IV diuresis * 08/14/2021: Continue with IV diuresis, his creatinine is stable appreciate nephrology's assistance * 08/16/2021: Creatinine is improving with the IV diuresis as is his shortness of breath therefore we will continue. * 08/20: on room air. 2. MSSA bacteremia: * During admission in June 2020, SHL[facility]O because of MSSA bacteremia in June 2019 did not show any vegetation reported normal mitral tricuspid valve. Mild diffuse aortic valve thickening. At that time patient was treated with IV cefazolin. * This time prelim blood cultures x2 shows a staph, mec-A not detected most likely MSSA. Discussed with ID and requested consult. * IV cefepime. Patient completed 3 doses of Zithromax. * SHL[facility]O on 08/13 negative for endocardititis * Patient also had left pain and left shoulder replacement in the past therefore x-rays of left shoulder and left knee ordered. Xray unremarkable for obvious osteomyelitis. * History * 08/12: Discussed with ID. Agreed with SHLOMO tomorrow AM. There is tenderness over left knee. Patient had left shoulder replacement and ROM is very restricted/limited. * 08/13/2021: SHLOMO was negative for any valvular vegetations. We will continue with IV antibiotics per ID. He did have an MSSA bacteremia back in June etiology this time is likely the decubitus ulcer. Appreciate ID assistance. Attempted arthrocenteses of left shoulder and knee were dry taps. * 08/15/2021: Blood cultures are continue to come back positive we will recheck another 1 today we will discuss the situation with ID tomorrow when they are in the hospital * 08/16/2021: Blood cultures from 08/14/2021 are negative, cultures from 5 8 are still pending. Continue with cefepime at this time. Cultures from [place] demonstrate beta-lactamase resistance and the MSSA that they had gotten on their cultures. * 08/17: on cefazolin. plan for 6 weeks of IV abx through 09/25/2021 3. Acute on chronic HFpEF/second-degree AV block with A-V dissociation: * Patient had last echo in June 2021 shows EF 65%, stage I diastolic dysfunction. Study was technically difficult due to body habitus and valves could not be well visualized. Heart failure core measures including intake and output, fluid restriction less than 1500 mL, daily weight monitoring, kidney and electrolytes monitoring. Serial troponins ordered. * On Lasix drip. * History: * 08/11: Patient was a started on Lasix drip by my colleague last night. Interior Horticulturist consult reviewed. 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 Peak creatinine was 3.6 slowly trending down. Serial troponins negative. ACS ruled out. TSH normal. * 08/13/2021: Overnight he had episodes of V. tach, cardiology evaluated the strips and felt that he had a second-degree AV block with A-V dissociation. We will stop beta-blockers and consult cardiology for continued management while inpatient * 08/14/2021: No abnormal rhythms overnight, cardiology is following and will likely need a pacemaker placed after he has cleared the infections which can likely be in several weeks. * 08/19: furosemide gtt discontinued given GAYE 4. Possible COPD exacerbation: * Patient never had PFT done last discharge was advised to follow-up in pulmonary clinic but patient never made it. Patient has been never a smoker. 5. Hypokalemia * replace * complicated by hypomag 6. Hypomagnesemia * improved with replacement 6. Acute kidney injury on CKD G4: * Recent renal ultrasound unremarkable. * Patient recently had renal biopsy in [facility], that showed IRBN 2/2 MSSA infection * Patient follows [facility] industrial pharmacist and is consulted. As Xarelto is more renally excreted therefore will change to Eliquis. 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 Peak creatinine was 3.6 trending down. Lasix drip increased to 20 mg/h. Metolazone was added. Monitor intake and output. Previous emesis and Bactrim might be the source for postinfectious glomerulonephritis. * 08/19: cr up to 2.53, will dc furosemide gtt. Now with myoclonus. DW Dr. Arita, plan to watch another night. If worse may require NOODLE PRESS OPERATOR. * 08/20: worse. Myoclonus improved. No need for NOODLE PRESS OPERATOR yet. * 08/21: Cr 2.88 7. Chronic normocytic anemia- * stable * patient hemoglobin is 7.8. Patient hemoglobin has been between 7.5-8.2 recently in July 2021. Last 1 in our system 7.6 on 07/20. * Continue PPI. * Stool positive for occult blood 07/14/21. * Monitor CBC * History: * 08/12: Troponin globin from 7.5-7.0. Low-dose Eliquis 2.5 mg twice daily discontinued. Bilateral SCDs. Stool for occult blood ordered. Monitor H&H in the evening. Monitor CBC daily. * 08/16/2021: Gastroenterology was consulted and wanted to hold off on any type of EGD given all of his other medical issues at this time. We will continue to monitor CBC * 08/18: iron 49, ferritin elevated at 508. Folate and B12 WNL. 8. Type 2 diabetes [id number] ACH coverage Humalog sliding scale continue home insulin regimen. We will monitor and make adjustments as necessary 9. Obesity hypoventilation syndrome/probable NILDA: The patient will need formal pulmonary clinic evaluation for PFT and sleep study. Continue BiPAP 10. Debility/failure to thrive, very limited ADL, morbid obesity-PT OT evaluation. To go to [facility] when medically ready. 11. DVT: * apixaban held given anemia and heme positive stools * duplex on the was negative VTE 12. VTE prophylaxis: SCDs Charges/Coding Visit Charges Inpatient E&M: 15189 Subs Hosp L2
[2021-08-21] MEDS: Menthol/Lanolin/Calamine/Znox 113 GM Tube 1 APPLIC TOPICAL ×2 (10:08→21:39)
[2021-08-21] MEDS: Pantoprazole Sodium 40 MG Tablet PO ×2 (10:09→21:44)
[2021-08-21] MEDS: guaiFENesin 1,200 MG Tablet 1200 MG PO ×2 (10:09→21:44)
[2021-08-21] MEDS: Cefazolin 1 GM/50 ML BAG IV ×2 (10:09→21:40)
[2021-08-21] MEDS: 0.9% Saline Lock 10 ML Syringe IV ×2 (10:09→21:43)
[2021-08-21 11:35] LABS: Bedside Glucose 116 mg/dL (74-106)
[2021-08-21 16:25] LABS: Bedside Glucose 112 mg/dL (74-106)
[2021-08-21 21:41] LABS: Bedside Glucose 128 mg/dL (74-106)
[2021-08-21] MEDS: Latanoprost 0.005% 1 Bottle 1 DRP EACH EYE (21:44)
[2021-08-22] VITALS (14 sets, daily range): BP systolic 106–137; BP diastolic 48–59; PULSE 47–58; RESP 20–28; TEMP 36.3–36.7; O2SAT 96–100
[2021-08-22] MEDS: Levothyroxine 25 MCG TABLET PO (05:03)
[2021-08-22] MEDS: Ipratropium/Albuterol Sulfate 3 ML AMPUL.NEB INHALATION ×4 (07:23→19:57)
[2021-08-22] MEDS: Insulin Lispro 100 UNIT/ML INSULN.PEN SC ×3 (07:33→16:17)
[2021-08-22 07:46] LABS: Bedside Glucose 140 mg/dL (74-106)
[2021-08-22 07:52] LABS: Absolute Lymphocyte Count 0.49 X10^3/uL (0.83-4.51); Absolute Neutrophil Count 12.1 X10^3/uL (2.0-7.7); Basophil# 0.01 X10^3/uL; Basophil% 0.1 % (0-1); Eosinophil# 0.16 X10^3/uL; Eosinophils% 1.1 % (0-5); Hematocrit 24.8 % (40-54); Hemoglobin 7.5 g/dL (13.0-16.5); Lymphocyte # 0.49 X10^3/ul (0.83-4.51); Lymphocyte % 3.5 % (19-41); Mean Corp Hgb Conc 30.2 g/dL (32-36); Mean Corpuscular Hgb 26.8 pg (27.0-32.0); Mean Corpuscular Volume 88.6 fL (80-94); Mean Platelet Vol. 9.7 fl (6.2-12.0); Monocyte# 0.96 X10^3/uL; Monocyte% 6.9 % (0-10); NRBC Flagged by Analyzer 0.2 % (0-5); Neutrophil # 12.06 X10^3/uL (2.7-7.7); Neutrophil % 86.2 % (47-70); POSITIVE DIFFERENTIAL YES; POSITIVE MORPHOLOGY YES; Platelet Count 324 K/mm3 (150-450); RBC Distribution Width CV 20.7 % (11.6-14.6); RBC Distribution Width SD 64.6 fl (35.1-43.9)
[2021-08-22 07:56] LABS: Differential Indicated SCAN CRITERIA MET
[2021-08-22 08:12] LABS: Anion Gap 9 (5-15); BUN 115 mg/dL (7-18); BUN/Creat Ratio 34.4 RATIO (10-20); Calcium,Total 9.6 mg/dL (8.5-10.1); Chloride 98 mmol/L (98-107); Creatinine, Serum 3.34 mg/dL (0.70-1.30); EST Glomerular Filtration Rate 20 mL/min (>60); Est Glom Filt Rate - Afr Amer 24 mL/min (>60); Estimated Creatinine Clearance 19.52 ml/min; Glucose 142 mg/dL (74-106); Potassium 5.2 mmol/L (3.5-5.1); Sodium Level 134 mmol/L (136-145)
--- NOTE | 2021-08-22 08:13 | PN.HOSP_ITS ---
Subjective Subjective Denies new complaints Objective Data Objective Data Vital Signs: Vital Signs Temp Pulse Resp BP Pulse Ox 36.5 C L 58 L 28 H 107/54 L 96 08/22/21 05:06 08/22/21 07:24 08/22/21 07:24 08/22/21 05:06 08/22/21 07:24 Oxygen Flow Rate (L/min) 2 Oxygen Delivery Method Nasal Cannula Weight: 162.3 kg Body Mass Index (BMI) 56.7 Intake & Output: Intake and Output for Last 24 Hours 08/20/21 08/21/21 08/22/21 23:59 23:59 23:59 Intake Total 730 / 730 1220 / 1340 120 / 120 Output Total 850 / 850 400 / 650 250 / 250 Balance -120 / -120 820 / 690 -130 / -130 Lab / Micro Data Result Diagrams: 08/22/21 07:11 08/22/21 07:11 Labs: Laboratory Results - last 24 hr 08/21/21 11:24: POC Glucose 116 H 08/21/21 16:20: POC Glucose 112 H 08/21/21 21:38: POC Glucose 128 H 08/22/21 07:11: WBC 14.0 H, RBC 2.80 L, Hgb 7.5 L, Hct 24.8 L, MCV 88.6, MCH 26.8 L, MCHC 30.2 L, RDW Std Deviation 64.6 H, RDW Coeff of Jory 20.7 H, Plt Count 324, MPV 9.7, Immature Gran % (Auto) 2.200 H, Neut % (Auto) 86.2 H, Lymph % (Auto) 3.5 L, [place] % (Auto) 6.9, Eos % (Auto) 1.1, Baso % (Auto) 0.1, Absolute Neuts (auto) 12.1 H, Absolute Lymphs (auto) 0.49 L, Nucleated RBC % 0.2 08/22/21 07:11: Sodium 134 L, Potassium 5.2 H, Chloride 98, Carbon Dioxide 27.0, Anion Gap 9, BUN 115 H*, Creatinine 3.34 H, Estim Creat Clear Calc 19.52, Est GFR (MDRD) Af Amer 24 L, Est GFR (MDRD) Non-Af 20 L, BUN/Creatinine Ratio 34.4 H , Glucose 142 H, Calcium 9.6 08/22/21 07:27: POC Glucose 140 H Micro: Microbiology 08/15/21 07:58 Blood Culture (Wb) - Other Blood Culture - Final No growth in 5 days. 08/14/21 06:50 Blood Culture (Wb) - Right Hand Blood Culture - Final No growth in 5 days. 08/12/21 10:16 Blood Culture (Wb) - Right Hand Blood Culture - Final Staphylococcus aureus 08/13/21 08:20 Blood Culture (Wb) - Other Blood Culture - Final Staphylococcus aureus 08/11/21 12:15 Blood Culture (Wb) - Right Hand Blood Culture - Final Staphylococcus aureus 08/10/21 18:54 Blood Culture (Wb) - Other Blood Culture - Final Staphylococcus aureus 08/10/21 15:29 Blood Culture (Wb) - Other Bacteria Detection (PCR) - Final Staphylococcus aureus 08/10/21 15:29 Blood Culture (Wb) - Other Blood Culture - Final Staphylococcus aureus 08/10/21 14:25 Urine Catheter - Franco Urine Culture - Final Escherichia coli Staphylococcus aureus 08/12/21 18:02 Stool Stool Occult Blood (DAMIAN) - Final Occult Blood Positive 08/12/21 10:00 Nasal Secretion SARS-CoV-2 Antigen (Rapid) - Final 08/10/21 13:45 Mucosa - Nasopharyngeal Respiratory Panel (PCR) - Final Physical Exam Const Constitutional Narrative: Groggy. She dozes off frequently during encounter. Resp normal respiratory effort Resp Narrative: Coarse breath sounds bilaterally. On nasal cannula. Cardio regular rate, regular rhythm, S1 normal heart sound and S2 normal heart sound GI GI Narrative: Obese. Soft nontender nondistended. Extremity Extremity Narrative: No knee tenderness with palpation General Extremity: edema Skin Skin Narrative: Venous stasis dermatitis of lower extremities Assessment & Plan Assessment/Plan (1) Acute renal failure: QUALIFIERS: Acute renal failure type: unspecified Qualified Code( s): N17.9 - Acute kidney failure, unspecified (2) CKD stage 4 due to type 1 diabetes mellitus: (3) COPD exacerbation: (4) CHF exacerbation: QUALIFIERS: Heart failure type: diastolic Qualified Code(s): I50.33 - Acute on chronic diastolic (congestive) heart failure PLAN: 1. Acute on chronic hypoxic respiratory failure due to COPD exacerbation and CHF exacerbation: * History: * 08/11: ABG was reviewed yesterday on 08/10. 7.40/43/133 on BiPAP suggestive of hypoxia. No hypercarbia. D-dimer was elevated. Venous duplex was negative for DVT. Furthermore VQ scan was done which reported low probability of PE. Chest x-ray shows increased bronchovascular markings, c ongestion suggestive of pulmonary edema. * 08/12: Patient remains intermittently on BiPAP and nasal cannula. Currently on 3 L of oxygen. Labored breathing. * 08/13/2021: Continue with IV diuresis * 08/14/2021: Continue with IV diuresis, his creatinine is stable appreciate nephrology's assistance * 08/16/2021: Creatinine is improving with the IV diuresis as is his shortness of breath therefore we will continue. * 08/20: on room air. 2. MSSA bacteremia: * During admission in June 2020, SHLOMO because of MSSA bacteremia in June 2019 did not show any vegetation reported normal mitral tricuspid valve. Mild diffuse aortic valve thickening. At that time patient was treated with IV cefazolin. * This time prelim blood cultures x2 shows a staph, mec-A not detected most likely MSSA. Discussed with ID and requested consult. * IV cefepime. Patient completed 3 doses of Zithromax. * SHLOMO on 08/13 negative for endocardititis * Patient also had left pain and left shoulder replacement in the past therefore x-rays of left shoulder and left knee ordered. Xray unremarkable for obvious osteomyelitis. * History * 08/12: Discussed with ID. Agreed with SHLOMO tomorrow AM. There is tenderness over left knee. Patient had left shoulder replacement and ROM is very restricted/limited. * 08/13/2021: SHLOMO was negative for any valvular vegetations. We will continue with IV antibiotics per ID. He did have an MSSA bacteremia back in June etiology this time is likely the decubitus ulcer. Appreciate ID assistan ce. Attempted arthrocenteses of left shoulder and knee were dry taps. * 08/15/2021: Blood cultures are continue to come back positive we will recheck another 1 today we will discuss the situation with ID tomorrow when they are in the hospital * 08/16/2021: Blood cultures from 08/14/2021 are negative, cultures from 08 15 are still pending. Continue with cefepime at this time. Cultures from [place] demonstrate beta-lactamase resistance and the MSSA that they had gotten on their cultures. * 08/17: on cefazolin. plan for 6 weeks of IV abx through 09/25/2021 3. Acute on chronic HFpEF/second-degree AV block with A-V dissociation: * Patient had last echo in June 2021 shows EF 65%, stage I diastolic dys function. Study was technically difficult due to body habitus and valves could not be well visualized. Heart failure core measures including intake and output, fluid restriction less than 1500 mL, daily weight monitoring, kidney and electrolytes monitoring. Serial troponins ordered. * On Lasix drip. * History: * 08/11: Patient was a started on Lasix drip by my colleague last night. Molding Utility Worker consult reviewed. 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 Peak creatinine was 3.6 slowly trending down. Serial troponins negative. ACS ruled out. TSH normal. * 08/13/2021: Overnight he had episodes of V. tach, cardiology evaluated the strips and felt that he had a second-degree AV block with A-V dissociation. We will stop beta-blockers and consult cardiology for continued management while inpatient * 08/14/2021: No abnormal rhythms overnight, cardiology is following and will likely need a pacemaker placed after he has cleared the infections which can likely be in several weeks. * 08/19: furosemide gtt discontinued given GAYE 4. Possible COPD exacerbation: * Patient never had PFT done last discharge was advised to follow-up in [facility] but patient never made it. Patient has been never a smoker. 5. Hypokalemia * resolved, now slightly hyperkalemic * complicated by hypomag 6. Hypomagnesemia * improved with replacement 6. Acute kidney injury on CKD G4: * Recent renal ultrasound unremarkable. * Patient recently had renal biopsy in [facility], that showed IRBN 2/2 MSSA infection * Patient follows [place] paper tube cutter and is consulted. As Xarelto is more renally excreted therefore will change to Eliquis. 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 Peak creatinine was 3.6 trending down. Lasix drip increased to 20 mg/h. Metolazone was added. Monitor intake and output. Previous emesis and Bactrim might be the source for postinfectious glomerulonephritis. * 08/19: cr up to 2.53, will dc furosemide gtt. Now with myoclonus. DW Dr. Arita, plan to watch another night. If worse may require BREAKDOWN MAN. * 08/20: worse. Myoclonus improved. No need for BREAKDOWN MAN yet. * 08/21: Cr 2.88 * 08/22: Cr 3.34. Likely will need BREAKDOWN MAN. measured UO from the only 400 7. Chronic normocytic anemia- * stable * patient hemoglobin is 7.8. Patient hemoglobin has been between 7.5-8.2 recently in July 2021. Last 1 in our system 7.6 on 07/20. * Continue PPI. * Stool positive for occult blood 07/14/21. * Monitor CBC * History: * 08/12: Troponin globin from 7.5-7.0. Low-dose Eliquis 2.5 mg twice daily discontinued. Bilateral SCDs. Stool for occult blood ordered. Monitor H&H in the evening. Monitor CBC daily. * 08/16/2021: Gastroenterology was consulted and wanted to hold off on any type of EGD given all of his other medical issues at this time. We will continue to monitor CBC * 08/18: iron 49, ferritin elevated at 508. Folate and B12 WNL. 8. Type 2 diabetes [id number] ACH coverage Humalog sliding scale continue home insulin regimen. We will monitor and make adjustments as necessary 9. Obesity hypoventilation syndrome/probable NILDA: The patient will need formal pulmonary clinic evaluation for PFT and sleep study. Continue BiPAP 10. Debility/failure to thrive, very limited ADL, morbid obesity-PT OT evaluation. To go to [facility] when medically ready. 11. DVT: * apixaban held given anemia and heme positive stools * duplex on the was negative VTE 12. VTE prophylaxis: SCDs Charges/Coding Visit Charges Inpatient E&M: 15026 Subs Hosp L2
[2021-08-22] MEDS: Pantoprazole Sodium 40 MG Tablet PO ×2 (09:40→22:27)
[2021-08-22] MEDS: guaiFENesin 1,200 MG Tablet 1200 MG PO ×2 (09:40→22:27)
[2021-08-22] MEDS: 0.9% Saline Lock 10 ML Syringe IV ×2 (09:40→22:39)
[2021-08-22] MEDS: Menthol/Lanolin/Calamine/Znox 113 GM Tube 1 APPLIC TOPICAL ×2 (09:40→22:26)
[2021-08-22] MEDS: Cefazolin 1 GM/50 ML BAG IV ×2 (09:41→22:35)
[2021-08-22] MEDS: 0.9% Normal Saline 1,000 ML 15 ML IV (09:51)
[2021-08-22 11:16] LABS: Bedside Glucose 121 mg/dL (74-106)
[2021-08-22] MEDS: Acetaminophen 325 MG Tablet 650 MG PO (13:23)
--- NOTE | 2021-08-22 15:25 | PN.RENAL_ITS ---
Subjective Subjective No new complaints today. Breathing is about the same. Objective Data Objective Data Vital Signs: Vital Signs Temp Pulse Resp BP Pulse Ox 97.5 F L 51 L 25 H 137/57 H 96 08/22/21 11:00 08/22/21 14:56 08/22/21 11:19 08/22/21 11:00 08/22/21 11:00 Oxygen Flow Rate (L/min) 2 Oxygen Delivery Method Nasal Cannula Weight: 162.3 kg Body Mass Index (BMI) 56.7 Intake & Output: Intake and Output for Last 24 Hours 08/20/21 08/21/21 08/22/21 23:59 23:59 23:59 Intake Total 730 / 730 1220 / 1340 529.75 / 529.75 Output Total 850 / 850 400 / 650 375 / 375 Balance -120 / -120 820 / 690 154.75 / 154.75 Lab / Micro Data Result Diagrams: 08/22/21 07:11 08/22/21 07:11 Labs: Laboratory Results - last 24 hr 08/21/21 16:20: POC Glucose 112 H 08/21/21 21:38: POC Glucose 128 H 08/22/21 07:11: WBC 14.0 H, RBC 2.80 L, Hgb 7.5 L, Hct 24.8 L, MCV 88.6, MCH 26.8 L, MCHC 30.2 L, RDW Std Deviation 64.6 H, RDW Coeff of Jory 20.7 H, Plt Count 324, MPV 9.7, Immature Gran % (Auto) 2.200 H, Neut % (Auto) 86.2 H, Lymph % (Auto) 3.5 L, [place] % (Auto) 6.9, Eos % (Auto) 1.1, Baso % (Auto) 0.1, Absolute Neuts (auto) 12.1 H, Absolute Lymphs (auto) 0.49 L, Nucleated RBC % 0.2 08/22/21 07:11: Sodium 134 L, Potassium 5.2 H, Chloride 98, Carbon Dioxide 27.0, Anion Gap 9, BUN 115 H*, Creatinine 3.34 H, Estim Creat Clear Calc 19.52, Est GFR (MDRD) Af Amer 24 L, Est GFR (MDRD) Non-Af 20 L, BUN/Creatinine Ratio 34.4 H , Glucose 142 H, Calcium 9.6 08/22/21 07:27: POC Glucose 140 H 08/22/21 10:58: POC Glucose 121 H Micro: Microbiology 08/15/21 07:58 Blood Culture (Wb) - Other Blood Culture - Final No growth in 5 days. 08/14/21 06:50 Blood Culture (Wb) - Right Hand Blood Culture - Final No growth in 5 days. 08/12/21 10:16 Blood Culture (Wb) - Right Hand Blood Culture - Final Staphylococcus aureus 08/13/21 08:20 Blood Culture (Wb) - Other Blood Culture - Final Staphylococcus aureus 08/11/21 12:15 Blood Culture (Wb) - Right Hand Blood Culture - Final Staphylococcus aureus 08/10/21 18:54 Blood Culture (Wb) - Other Blood Culture - Final Staphylococcus aureus 08/10/21 15:29 Blood Culture (Wb) - Other Bacteria Detection (PCR) - Final Staphylococcus aureus 08/10/21 15:29 Blood Culture (Wb) - Other Blood Culture - Final Staphylococcus aureus 08/10/21 14:25 Urine Catheter - Franco Urine Culture - Final Escherichia coli Staphylococcus aureus 08/12/21 18:02 Stool Stool Occult Blood (DAMIAN) - Final Occult Blood Positive 08/12/21 10:00 Nasal Secretion SARS-CoV-2 Antigen (Rapid) - Final 08/10/21 13:45 Mucosa - Nasopharyngeal Respiratory Panel (PCR) - Final Physical Exam Narrative Const: A&Ox3 HEENT: PERRLA, oral mucosa moist Cardio: S1 S2 RRR Resp: Lungs are clear to auscultation anteriorly Abdomen: Obese, normal bowel sound, soft, nontender, no guarding or rebound. Extremities: 2+ lower extremity edema. Assessment & Plan Assessment/Plan (1) GAYE (acute kidney injury): PLAN: - The patient has normal baseline kidney function. His serum creatinine was 0.95 mg/dL on 06/21/2021. 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 -Serum creatinine peaked at 3.60 mg/dL in July with gradual improvement. -The patient admitted again on 08/11/2021 with volume overload/heart failure with preserved ejection fraction exacerbation. So, there may be some component of GAYE from cardiorenal syndrome as well. BUN and creatinine continues to worsen. Bedside bladder scan was done and negative. Likely sustained another episode of ATN. At this point he likely needs dialysis. Last set of blood cultures were negative hence she should be able to get a tunneled dialysis catheter. I did ask him about potential dialysis start due to worsening renal function. He did not immediately say yes. Says he has to think about it and maybe talk to some of his family members. We will recheck again tomorrow about dialysis. If he agrees we will start with a tunneled dialysis catheter. Most likely he will need dialysis at the time of discharge as well. (2) Anemia: PLAN: -The patient likely has anemia of chronic disease. -Unfortunately, there is no role for MERLIN in the setting of GAYE. -Continue to monitor hemoglobin and transfuse if less than 7 g/dL. (3) Acute on chronic respiratory failure with hypoxia: PLAN: - The patient has multifactorial explanations for acute hypoxic respiratory failure. (4) Bacteremia: PLAN: -The patient has persistent MSSA bacteremia. -The patient is currently on cefazolin
[2021-08-22 16:25] LABS: Bedside Glucose 118 mg/dL (74-106)
[2021-08-22] MEDS: Latanoprost 0.005% 1 Bottle 1 DRP EACH EYE (22:28)
[2021-08-22 22:50] LABS: Bedside Glucose 116 mg/dL (74-106)
[2021-08-23] VITALS (12 sets, daily range): BP systolic 85–132; BP diastolic 45–86; PULSE 47–63; RESP 17–29; TEMP 36.4–36.6; O2SAT 93–98
[2021-08-23] MEDS: Levothyroxine 25 MCG TABLET PO (06:03)
[2021-08-23] MEDS: Ipratropium/Albuterol Sulfate 3 ML AMPUL.NEB INHALATION ×2 (07:03→19:54)
[2021-08-23 07:34] LABS: Absolute Lymphocyte Count 0.55 X10^3/uL (0.83-4.51); Absolute Neutrophil Count 8.8 X10^3/uL (2.0-7.7); Basophil# 0.02 X10^3/uL; Basophil% 0.2 % (0-1); Eosinophil# 0.25 X10^3/uL; Eosinophils% 2.3 % (0-5); Hematocrit 24.6 % (40-54); Hemoglobin 7.3 g/dL (13.0-16.5); Lymphocyte # 0.55 X10^3/ul (0.83-4.51); Lymphocyte % 5.2 % (19-41); Mean Corp Hgb Conc 29.7 g/dL (32-36); Mean Corpuscular Hgb 26.8 pg (27.0-32.0); Mean Corpuscular Volume 90.4 fL (80-94); Mean Platelet Vol. 9.8 fl (6.2-12.0); Monocyte# 0.79 X10^3/uL; Monocyte% 7.4 % (0-10); NRBC Flagged by Analyzer 0 % (0-5); Neutrophil # 8.83 X10^3/uL (2.7-7.7); Neutrophil % 82.7 % (47-70); POSITIVE DIFFERENTIAL YES; POSITIVE MORPHOLOGY YES; Platelet Count 280 K/mm3 (150-450); RBC Distribution Width CV 20.7 % (11.6-14.6); RBC Distribution Width SD 67.4 fl (35.1-43.9); Red Blood Count 2.72 M/mm3 (4.6-6.2); White Blood Count 10.7 K/mm3 (4.4-11.0)
--- NOTE | 2021-08-23 07:34 | PN.HOSP_ITS ---
Subjective Subjective Feels ok. Denies any shoulder or knee pain. Objective Data Objective Data Vital Signs: Vital Signs Temp Pulse Resp BP Pulse Ox 36.4 C L 52 L 19 H 104/51 L 98 08/23/21 03:15 08/23/21 03:15 08/23/21 03:15 08/23/21 03:08/23/21 03:15 Oxygen Flow Rate (L/min) 2 Oxygen Delivery Method Nasal Cannula Weight: 162.7 kg Body Mass Index (BMI) 56.7 Intake & Output: Intake and Output for Last 24 Hours 08/21/21 08/22/21 08/23/21 23:59 23:59 23:59 Intake Total 1220 / 1340 1139.75 / 1139.75 120 / 120 Output Total 400 / 650 375 / 375 Balance 820 / 690 764.75 / 764.75 120 / 120 Lab / Micro Data Result Diagrams: 08/23/21 06:55 08/23/21 06:55 Labs: Laboratory Results - last 24 hr 08/22/21 07:11: WBC 14.0 H, RBC 2.80 L, Hgb 7.5 L, Hct 24.8 L, MCV 88.6, MCH 26.8 L, MCHC 30.2 L, RDW Std Deviation 64.6 H, RDW Coeff of Jory 20.7 H, Plt Count 324, MPV 9.7, Immature Gran % (Auto) 2.200 H, Neut % (Auto) 86.2 H, Lymph % (Auto) 3.5 L, [place] % (Auto) 6.9, Eos % (Auto) 1.1, Baso % (Auto) 0.1, Absolute Neuts (auto) 12.1 H, Absolute Lymphs (auto) 0.49 L, Nucleated RBC % 0.2 08/22/21 07:11: Sodium 134 L, Potassium 5.2 H, Chloride 98, Carbon Dioxide 27.0, Anion Gap 9, BUN 115 H*, Creatinine 3.34 H, Estim Creat Clear Calc 19.52, Est GFR (MDRD) Af Amer 24 L, Est GFR (MDRD) Non-Af 20 L, BUN/Creatinine Ratio 34.4 H , Glucose 142 H, Calcium 9.6 08/22/21 07:27: POC Glucose 140 H 08/22/21 10:58: POC Glucose 121 H 08/22/21 16:16: POC Glucose 118 H 08/22/21 22:25: POC Glucose 116 H Micro: Microbiology 08/15/21 07:58 Blood Culture (Wb) - Other Blood Culture - Final No growth in 5 days. 08/14/21 06:50 Blood Culture (Wb) - Right Hand Blood Culture - Final No growth in 5 days. 08/12/21 10:16 Blood Culture (Wb) - Right Hand Blood Culture - Final Staphylococcus aureus 08/13/21 08:20 Blood Culture (Wb) - Other Blood Culture - Final Staphylococcus aureus 08/11/21 12:15 Blood Culture (Wb) - Right Hand Blood Culture - Final Staphylococcus aureus 08/10/21 18:54 Blood Culture (Wb) - Other Blood Culture - Final Staphylococcus aureus 08/10/21 15:29 Blood Culture (Wb) - Other Bacteria Detection (PCR) - Final Staphylococcus aureus 08/10/21 15:29 Blood Culture (Wb) - Other Blood Culture - Final Staphylococcus aureus 08/10/21 14:25 Urine Catheter - Franco Urine Culture - Final Escherichia coli Staphylococcus aureus 08/12/21 18:02 Stool Stool Occult Blood (DAMIAN) - Final Occult Blood Positive 08/12/21 10:00 Nasal Secretion SARS-CoV-2 Antigen (Rapid) - Final 08/10/21 13:45 Mucosa - Nasopharyngeal Respiratory Panel (PCR) - Final Physical Exam Const alert and no apparent distress Resp normal respiratory effort, no retractions, no use of accessory muscles and clear to auscultation bilaterally Cardio regular rate, regular rhythm, S1 normal heart sound and S2 normal heart sound GI normal to inspection, nondistended, normoactive bowel sounds, soft to palpation, non-tender and non-distended Extremity General Extremity: edema Skin no rashes or lesions noted and no wounds Neuro Sensorium / Orientation: awake and alert Assessment & Plan Assessment/Plan (1) Acute renal failure: QUALIFIERS: Acute renal failure type: unspecified Qualified Code(s): N17.9 - Acute kidney failure, unspecified (2) CKD stage 4 due to type 1 diabetes mellitus: (3) COPD exacerbation: (4) CHF exacerbation: QUALIFIERS: Heart failure type: diastolic Qualified Code(s): I50.33 - Acute on chronic diastolic (congestive) heart failure PLAN: 1. Acute on chronic hypoxic respiratory failure due to COPD exacerbation and CHF exacerbation: * History: * 08/11: ABG was reviewed yesterday on 08/10. 7.40/43/133 on BiPAP suggestive of hypoxia. No hypercarbia. D-dimer was elevated. Venous duplex was negative for DVT. Furthermore VQ scan was done which reported low probability of PE. Chest x-ray shows increased bronchovascular markings, congestion suggestive of pulmonary edema. * 08/12: Patient remains intermittently on BiPAP and nasal cannula. Currently on 3 L of oxygen. Labored breathing. * 08/13/2021: Continue with IV diuresis * 08/14/2021: Continue with IV diuresis, his creatinine is stable appreciate n ephrology's assistance * 08/16/2021: Creatinine is improving with the IV diuresis as is his shortness of breath therefore we will continue. * 08/20: on room air. 2. MSSA bacteremia: * During admission in June 2020, SHLOMO because of MSSA bacteremia in June 2019 did not show any vegetation reported normal mitral tricuspid valve. Mild diffuse aortic valve thickening. At that time patient was treated with IV cefazolin. * This time prelim blood cultures x2 shows a staph, mec-A not detected most l ikely MSSA. Discussed with ID and requested consult. * IV cefepime. Patient completed 3 doses of Zithromax. * SHLOMO on 08/13 negative for endocardititis * Patient also had left pain and left shoulder replacement in the past therefore x-rays of left shoulder and left knee ordered. Xray unremarkable for obvious osteomyelitis. * History * 08/12: Discussed with ID. Agreed with SHLOMO tomorrow AM. There is tenderness over left knee. Patient had left shoulder replacement and ROM is very restricted/limited. * 08/13/2021: SHLOMO was negative for any valvular vegetations. We will continue with IV antibiotics per ID. He did have an MSSA bacteremia back in June etiology this time is likely the decubitus ulcer. Appreciate ID assistance. Attempted arthrocenteses of left shoulder and knee were dry taps. * 08/15/2021: Blood cultures are continue to come back positive we will recheck another 1 today we will discuss the situation with ID tomorrow when they are in the hospital * 08/16/2021: Blood cultures from 08/14/2021 are negative, cultures from 5 8 are still pending. Continue with cefepime at this time. Cultures from [facility] demonstrate beta-lactamase resistance and the MSSA that they had gotten on their cultures. * 08/17: on cefazolin. plan for 6 weeks of IV abx through 09/25/2021 3. Acute on chronic HFpEF/second-degree AV block with A-V dissociation: * Patient had last echo in June 2021 shows EF 65%, stage I diastolic dysfunction. Study was technically difficult due to body habitus and valves could not be well visualized. Heart failure core measures including intake and output, fluid restriction less than 1500 mL, daily weight monitoring, kidney and electrolytes monitoring. Serial troponins ordered. * On Lasix drip. * History: * 08/11: Patient was a started on Lasix drip by my colleague last night. Lard Bleacher consult reviewed. 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 Peak creatinine was 3.6 slowly trending down. Serial troponins negative. ACS ruled out. TSH normal. * 08/13/2021: Overnight he had episodes of V. tach, cardiology evaluated the strips and felt that he had a second-degree AV block with A-V dissociation. We will stop beta-blockers and consult cardiology for continued management while inpatient * 08/14/2021: No abnormal rhythms overnight, cardiology is following and will likely need a pacemaker placed after he has cleared the infections which can likely be in several weeks. * 08/19: furosemide gtt discontinued given GAYE 4. Possible COPD exacerbation: * Patient never had PFT done last discharge was advised to follow-up in pulmonary clinic but patient never made it. Patient has been never a smoker. 5. Hypokalemia * resolved, now slightly hyperkalemic * complicated by hypomag 6. Hypomagnesemia * improved with replacement 6. Acute kidney injury on CKD G4: * Recent renal ultrasound unremarkable. * Patient recently had renal biopsy in [facility], that showed IRBN 2/2 MSSA infection * Patient follows [facility] dormitory supervisor and is consulted. As Xarelto is more renally excreted therefore will change to Eliquis. 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 Peak creatinine was 3.6 trending down. Lasix drip increased to 20 mg/h. Metolaz one was added. Monitor intake and output. Previous emesis and Bactrim might be the source for postinfectious glomerulonephritis. * 08/19: cr up to 2.53, will dc furosemide gtt. Now with myoclonus. DW Dr. Arita, plan to watch another night. If worse may require ROLL UP MACHINE OPERATOR. * 08/20: worse. Myoclonus improved. No need for ROLL UP MACHINE OPERATOR yet. * 08/21: Cr 2.88 * 08/22: Cr 3.34. Likely will need ROLL UP MACHINE OPERATOR. measured UO from the only 400 * 08/23: Cr 3.63. For plan for HD. 7. Chronic normocytic anemia- * stable * patient hemoglobin is 7.8. Patient hemoglobin has been between 7.5-8.2 recently in July 2021. Last 1 in our system 7.6 on 07/20. * Continue PPI. * Stool positive for occult blood 07/14/21. * Monitor CBC * History: * 08/12: Troponin globin from 7.5-7.0. Low-dose Eliquis 2.5 mg twice daily discontinued. Bilateral SCDs. Stool for occult blood ordered. Monitor H&H in the evening. Monitor CBC daily. * 08/16/2021: Gastroenterology was consulted and wanted to hold off on any type of EGD given all of his other medical issues at this time. We will continue to monitor CBC * 08/18: iron 49, ferritin elevated at 508. Folate and B12 WNL. 8. Type 2 diabetes [id number] ACH coverage Humalog sliding scale cont inue home insulin regimen. We will monitor and make adjustments as necessary 9. Obesity hypoventilation syndrome/probable NILDA: The patient will need formal pulmonary clinic evaluation for PFT and sleep study. Continue BiPAP 10. Debility/failure to thrive, very limited ADL, morbid obesity-PT OT evaluation. To go to [facility] when medically ready. 11. DVT: * apixaban held given anemia and heme positive stools * duplex on the was negative VTE 12. VTE prophylaxis: SCDs Charges/Coding Visit Charges Inpatient E&M: 62837 Subs Hosp L2
[2021-08-23 07:36] LABS: Differential Indicated SCAN CRITERIA MET
[2021-08-23 08:11] LABS: Anion Gap 11 (5-15); BUN/Creat Ratio 32.5 RATIO (10-20); Calcium,Total 9.3 mg/dL (8.5-10.1); Chloride 97 mmol/L (98-107); Creatinine, Serum 3.63 mg/dL (0.70-1.30); EST Glomerular Filtration Rate 18 mL/min (>60); Est Glom Filt Rate - Afr Amer 22 mL/min (>60); Estimated Creatinine Clearance 17.96 ml/min; Glucose 100 mg/dL (74-106); Potassium 5.1 mmol/L (3.5-5.1)
[2021-08-23 08:12] LABS: Sodium Level 133 mmol/L (136-145)
[2021-08-23 08:14] LABS: BUN 118 mg/dL (7-18)
[2021-08-23] MEDS: Menthol/Lanolin/Calamine/Znox 113 GM Tube 1 APPLIC TOPICAL ×2 (08:18→22:57)
[2021-08-23] MEDS: Pantoprazole Sodium 40 MG Tablet PO ×2 (08:18→22:57)
[2021-08-23] MEDS: guaiFENesin 1,200 MG Tablet 1200 MG PO ×2 (08:18→22:57)
[2021-08-23 08:21] LABS: Bedside Glucose 96 mg/dL (74-106)
[2021-08-23 08:31] LABS: Anisocytosis 1+
[2021-08-23] MEDS: Insulin Lispro 100 UNIT/ML INSULN.PEN SC ×2 (09:14→18:41)
[2021-08-23] MEDS: Cefazolin 1 GM/50 ML BAG IV ×2 (09:14→22:50)
[2021-08-23] MEDS: 0.9% Saline Lock 10 ML Syringe IV ×2 (09:14→22:50)
--- NOTE | 2021-08-23 10:10 | PCM.PN.REN ---
Subjective Subjective Resting in bed, no overnight event. Denies any complaints. Objective Data Objective Data Vital Signs: Vital Signs Temp Pulse Resp BP Pulse Ox 97.5 F L 55 L 29 H 102/56 L 94 08/23/21 08:00 08/23/21 08:00 08/23/21 08:00 08/23/21 08:00 08/23/21 08:00 Oxygen Flow Rate (L/min) 2 Oxygen Delivery Method Nasal Cannula Weight: 162.7 kg Body Mass Index (BMI) 56.7 Intake & Output: Intake and Output for Last 24 Hours 08/21/21 08/22/21 08/23/21 23:59 23:59 23:59 Intake Total 1220 / 1340 1139.75 / 1139.75 120 / 120 Output Total 400 / 650 375 / 375 Balance 820 / 690 764.75 / 764.75 120 / 120 Lab / Micro Data Result Diagrams: 08/23/21 06:55 08/23/21 06:55 Labs: Laboratory Results - last 24 hr 08/22/21 10:58: POC Glucose 121 H 08/22/21 16:16: POC Glucose 118 H 08/22/21 22:25: POC Glucose 116 H 08/23/21 06:55: WBC 10.7, RBC 2.72 L, Hgb 7.3 L, Hct 24.6 L, MCV 90.4, MCH 26.8 L, MCHC 29.7 L, RDW Std Deviation 67.4 H, RDW Coeff of Jory 20.7 H, Plt Count 280, MPV 9.8, Immature Gran % (Auto) 2.200 H, Neut % (Auto) 82.7 H, Lymph % (Auto) 5.2 L, [place] % (Auto) 7.4, Eos % (Auto) 2.3, Baso % (Auto) 0.2, Absolute Neuts (auto) 8.8 H, Absolute Lymphs (auto) 0.55 L, Nucleated RBC % 0, Differential Comment COMMENT, Anisocytosis 1+ 08/23/21 06:55: Sodium 133 L, Potassium 5.1, Chloride 97 L, Carbon Dioxide 25.0, Anion Gap 11, BUN 118 H*, Creatinine 3.63 H, Estim Creat Clear Calc 17.96, Est GFR (MDRD) Af Amer 22 L, Est GFR (MDRD) Non-Af 18 L, BUN/Creatinine Ratio 32.5 H, Glucose 100, Calcium 9.3 08/23/21 08:15: POC Glucose 96 Micro: Microbiology 08/15/21 07:58 Blood Culture (Wb) - Other Blood Culture - Final No growth in 5 days. 08/14/21 06:50 Blood Culture (Wb) - Right Hand Blood Culture - Final No growth in 5 days. 08/12/21 10:16 Blood Culture (Wb) - Right Hand Blood Culture - Final Staphylococcus aureus 08/13/21 08:20 Blood Culture (Wb) - Other Blood Culture - Final Staphylococcus aureus 08/11/21 12:15 Blood Culture (Wb) - Right Hand Blood Culture - Final Staphylococcus aureus 08/10/21 18:54 Blood Culture (Wb) - Other Blood Culture - Final Staphylococcus aureus 08/10/21 15:29 Blood Culture (Wb) - Other Bacteria Detection (PCR) - Final Staphylococcus aureus 08/10/21 15:29 Blood Culture (Wb) - Other Blood Culture - Final Staphylococcus aureus 08/10/21 14:25 Urine Catheter - Franco Urine Culture - Final Escherichia coli Staphylococcus aureus 08/12/21 18:02 Stool Stool Occult Blood (DAMIAN) - Final Occult Blood Positive 08/12/21 10:00 Nasal Secretion SARS-CoV-2 Antigen (Rapid) - Final 08/10/21 13:45 Mucosa - Nasopharyngeal Respiratory Panel (PCR) - Final Physical Exam Narrative Const: A&Ox3 HEENT: PERRLA, oral mucosa moist Cardio: S1 S2 RRR Resp: Lungs are clear to auscultation anteriorly Abdomen: Obese, normal bowel sound, soft, nontender, no guarding or rebound. Extremities: 2-3+ lower extremity edema. SHELLI wraps intact. Assessment & Plan Assessment/Plan (1) GAYE (acute kidney injury): PLAN: - The patient has normal baseline kidney function. His serum creatinine was 0.95 mg/dL on 06/21/2021. 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 -Serum creatinine peaked at 3.60 mg/dL in July with gradual improvement. -The patient admitted again on 08/11/2021 with volume overload/heart failure with preserved ejection fraction exacerbation. So, there may be some component of GAYE from cardiorenal syndrome as well. -BUN and creatinine continues to worsen daily and UOP amount is declining. Bedside bladder scan was done and negative. Likely sustained another episode of ATN. At this point he is heading towards needing dialysis. BUN 118 and SCr 3.63mg/dL today. - Blood cultures drawn 08/14 and again 08/15 were negative hence he should be able to get a tunneled dialysis catheter. - I spoke to both patient and his niece Alison regarding dialysis, discussed risks and benefit of dialysis versus not doing dialysis. Questions answered. Both are in agreement to move forward with ASSOCIATE PROFESSOR OF COMMUNICATION. - will consult surgery for Tunneled HD catheter placement. Depending upon timing of placement will arrange for dialysis to start today or tomorrow. There is no urgent need for HD today, K+ 5.1. Will consult SW to arrange for outpatient dialysis. (2) Anemia: PLAN: -The patient likely has anemia of chronic disease. -Unfortunately, there is no role for MERLIN in the setting of GAYE. -Continue to monitor hemoglobin and transfuse if less than 7 g/dL. (3) Acute on chronic respiratory failure with hypoxia: PLAN: - The patient has multifactorial explanations for acute hypoxic respiratory failure. (4) Bacteremia: PLAN: -The patient has persistent MSSA bacteremia. -The patient is currently on cefazolin
--- NOTE | 2021-08-23 10:13 | CASEMGMT ---
Per Lucia nephro LEAD MATERIAL HANDLER, pt/niece(HPOA) would like to go ahead with dialysis and would like [facility]. Referral placed in [facility] portal and faxed to [facility] at this time. CM to follow. Davidson ALMONTE CM
--- NOTE | 2021-08-23 11:43 | CON.PCM.SX_ITS ---
Assessment & Plan Assessment/Plan (1) GAYE (acute kidney injury): (2) Acute renal failure: QUALIFIERS: Acute renal failure type: unspecified Qualified Code(s): N17.9 - Acute kidney failure, unspecified PLAN: I plan to perform a right internal jugular tunneled dialysis catheter placement. The planned surgical procedure was discussed extensively with the patient. The risks, benefits, anticipated outcomes and possible complication were mentioned. My staff has also explained the procedure in understandable terms and the patient was given the option to take printed material concerning the planned procedure. The patient had the opportunity to ask questions concerning the planned procedure. The patient freely consents to the planned procedure. HPI Consult Data Date of Consult: 08/23/21 HPI Narrative HPI Narrative: MICHEAL LEÓN, is a 70 M who presents acute kidney injury. 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 His BUN and creatinine continue to worsen. Bedside bladder scans have been done and have been negative. And he is likely sustained another ATN. Nephrology is recommending dialysis and has requested a tunneled dialysis catheter. [facility] Medical History 2019-nCoV vaccination declined Cellulitis Debility DVT (deep venous thrombosis) Fall HTN (hypertension) Leukocytosis Obesity Home Medications latanoprost 1 drp EACH EYE QHS 06/11/21 [History Last Taken 08/09/21 22:00] ipratropium-albuterol 3 ml INHALATION Q4HWA.RT PRN #0 ml 06/20/21 [Rx Last Taken 08/10/21 06:30] insulin lispro [Humalog KwikPen Insulin] 5 unit SUBCUT TIDAC #0 ml 07/16/21 [Rx Last Taken Unknown] menthol-zinc oxide [Calmoseptine] 1 applic TOPICAL BID #0 g 07/16/21 [Rx Last Taken Unknown] metoprolol tartrate 25 mg PO BID #0 tab 07/16/21 [Rx Last Taken Unknown] pantoprazole [Protonix] 40 mg PO DAILY 07/19/21 [History Last Taken Unknown] tramadol 50 mg PO DAILY 07/19/21 [History Last Taken Unknown] bumetanide [Bumex] 2 mg PO DAILY 08/10/21 [History Last Taken Unknown] levothyroxine [Synthroid] 25 mcg PO DAILY 08/10/21 [History Last Taken Unknown] potassium chloride 40 meq PO BID 08/10/21 [History Last Taken Unknown] cefazolin 2 g IV Q12H 38 Days ea 08/18/21 [Rx Last Taken Unknown] Allergy/AdvReac Type Severity Reaction Status Date / Time No Known Allergies Allergy Verified 06/11/21 15:09 Surgical History History of left shoulder replacement Social History household members: none housing: [facility] current occupational status: disabled Smoking Status: Never smoker alcohol intake: never substance use type: does not use ROS Constitutional Constitutional: Denies chills or fever(s) Cardiovascular Cardiovascular: Denies chest pain Respiratory/Chest Respiratory/Chest: Denies shortness of breath at rest Gastrointestinal Gastrointestinal: Denies abdominal pain Physical Exam Const alert, oriented x3 and no apparent distress General Appearance: cooperative HEENT normocephalic and head/scalp atraumatic Eyes PERRL and EOMs intact bilaterally Resp clear to auscultation bilaterally Cardio Rate: regular rate Rhythm: regular rhythm GI soft to palpation GI Narrative: Patient is morbidly obese Lab / Micro Data Result Diagrams: 08/23/21 06:55 08/23/21 06:55 Labs: Laboratory Results - last 24 hr 08/22/21 16:16: POC Glucose 118 H 08/22/21 22:25: POC Glucose 116 H 08/23/21 06:55: WBC 10.7, RBC 2.72 L, Hgb 7.3 L, Hct 24.6 L, MCV 90.4, MCH 26.8 L, MCHC 29.7 L, RDW Std Deviation 67.4 H, RDW Coeff of Jory 20.7 H, Plt Count 280, MPV 9.8, Immature Gran % (Auto) 2.200 H, Neut % (Auto) 82.7 H, Lymph % (Auto) 5.2 L, [place] % (Auto) 7.4, Eos % (Auto) 2.3, Baso % (Auto) 0.2, Absolute Neuts (auto) 8.8 H, Absolute Lymphs (auto) 0.55 L, Nucleated RBC % 0, Differential Comment COMMENT, Anisocytosis 1+ 08/23/21 06:55: Sodium 133 L, Potassium 5.1, Chloride 97 L, Carbon Dioxide 25.0, Anion Gap 11, BUN 118 H*, Creatinine 3.63 H, Estim Creat Clear Calc 17.96, Est GFR (MDRD) Af Amer 22 L, Est GFR (MDRD) Non-Af 18 L, BUN/Creatinine Ratio 32.5 H , Glucose 100, Calcium 9.3 08/23/21 08:15: POC Glucose 96
[2021-08-23 12:45] LABS: Bedside Glucose 129 mg/dL (74-106)
--- NOTE | 2021-08-23 14:37 | PCM.PN.ID ---
Physical Exam Narrative Feeling better, knee less sore, no fever Const alert and no apparent distress General Appearance: cooperative Resp normal air movement and clear to auscultation bilaterally Cardio regular rate and regular rhythm GI soft to palpation, non-tender and non-distended Skin no rashes or lesions noted ID ID: Route of nutrition/ use of supplements: [] Nutritional Intake: [] IV Site: [] Franco Catheter: [] Assessment & Plan Assessment/Plan (1) MSSA bacteremia: PLAN: Bcx with MSSA again. Ucx with ecoli. 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 Splinter hemorrhages seen on fingers. Cont cefazolin. Neg SHLOMO. Repeat bcx neg at 72+ hours at this point. Plan is for 6 weeks iv cefazolin, stop date 09/25/21. ID followup in 2 weeks. May need longer course of po abx once iv is complete due to suspected joint involvement as potential explanation for recurrence. Adjusted abx dose due to worsened Cr. Knee slightly improved. HD being started soon. Will follow
[2021-08-23 17:50] LABS: Bedside Glucose 91 mg/dL (74-106)
[2021-08-23] MEDS: Latanoprost 0.005% 1 Bottle 1 DRP EACH EYE (22:57)
[2021-08-23 23:10] LABS: Bedside Glucose 127 mg/dL (74-106)
[2021-08-24] VITALS (23 sets, daily range): BP systolic 95–118; BP diastolic 43–86; PULSE 45–68; RESP 14–20; TEMP 36.3–36.6; O2SAT 82–99; BMI 56.2; BMI 55.7
[2021-08-24 06:30] LABS: Absolute Lymphocyte Count 0.35 X10^3/uL (0.83-4.51); Absolute Neutrophil Count 11.4 X10^3/uL (2.0-7.7); Basophil# 0.01 X10^3/uL; Basophil% 0.1 % (0-1); Eosinophil# 0.12 X10^3/uL; Eosinophils% 0.9 % (0-5); Hematocrit 24.5 % (40-54); Hemoglobin 7.4 g/dL (13.0-16.5); Lymphocyte # 0.35 X10^3/ul (0.83-4.51); Lymphocyte % 2.7 % (19-41); Mean Corp Hgb Conc 30.2 g/dL (32-36); Mean Corpuscular Hgb 27.2 pg (27.0-32.0); Mean Corpuscular Volume 90.1 fL (80-94); Mean Platelet Vol. 9.5 fl (6.2-12.0); Monocyte% 6.2 % (0-10); NRBC Flagged by Analyzer 0.2 % (0-5); Neutrophil # 11.36 X10^3/uL (2.7-7.7); Neutrophil % 88.6 % (47-70); POSITIVE DIFFERENTIAL YES; POSITIVE MORPHOLOGY YES; Platelet Count 265 K/mm3 (150-450); RBC Distribution Width CV 20.6 % (11.6-14.6); RBC Distribution Width SD 66.6 fl (35.1-43.9); Red Blood Count 2.72 M/mm3 (4.6-6.2); White Blood Count 12.8 K/mm3 (4.4-11.0)
[2021-08-24 06:36] LABS: Differential Indicated SCAN CRITERIA MET
[2021-08-24] MEDS: Ipratropium/Albuterol Sulfate 3 ML AMPUL.NEB INHALATION ×2 (06:45→21:51)
[2021-08-24 07:02] LABS: Albumin, Serum 1.4 g/dL (3.2-5.0); Anion Gap 10 (5-15); BUN 122 mg/dL (7-18); BUN/Creat Ratio 32.3 RATIO (10-20); Calcium,Total 9.2 mg/dL (8.5-10.1); Chloride 97 mmol/L (98-107); Creatinine, Serum 3.78 mg/dL (0.70-1.30); EST Glomerular Filtration Rate 17 mL/min (>60); Est Glom Filt Rate - Afr Amer 21 mL/min (>60); Estimated Creatinine Clearance 17.24 ml/min; Glucose 109 mg/dL (74-106); Phosphorus 5.4 mg/dL (2.5-4.9); Potassium 5.2 mmol/L (3.5-5.1); Sodium Level 133 mmol/L (136-145)
--- NOTE | 2021-08-24 07:02 | NURSING ---
Pts primary rn aware of bun of 122 at this time.
[2021-08-24 07:12] LABS: Anisocytosis 2+
[2021-08-24 08:32] LABS: Hepatitis B Surface Antigen Non-Reactive (Nonreactive)
[2021-08-24] MEDS: Menthol/Lanolin/Calamine/Znox 113 GM Tube 1 APPLIC TOPICAL ×2 (08:43→23:05)
[2021-08-24] MEDS: Morphine 2 MG/ML Syringe IV (08:46)
--- NOTE | 2021-08-24 09:02 | WOUNDNOTE ---
Pt is scheduled to go to surgery this am for a tunneled dialysis catheter. The Mepilex to sacrum was just changes yesterday am. legs and feet washed with soap and water. pat dry. was able to remove a moderate amount of thick dry skin from the plantar surfaces of the feet. applied Eucerin. reapplied the SHELLI wraps. pt tolerated fairly well. knees are very painful with movement. will monitor.
[2021-08-24 09:05] LABS: Bedside Glucose 107 mg/dL (74-106)
[2021-08-24] MEDS: Cefazolin 1 GM/50 ML BAG IV (09:12)
[2021-08-24] MEDS: 0.9% Saline Lock 10 ML Syringe IV ×2 (09:13→23:07)
--- NOTE | 2021-08-24 09:15 | CASEMGMT ---
Addendum entered by Emily Camara 08/24/21 13:25: Tunnel cath op notes and CXR faxed to [facility] admissions. Davidson ALMONTE CM Addendum entered by Emily Camara 08/24/21 11:20: This RN PHILIP spoke with Serjio at [facility] and he gave this RN CM a chair time of [facility] at 0710, Kathryn LE aware, voices understanding. Serjio also aware that pt does not ambulate or even pivot, voices understanding. CM to follow. Davidson ALMONTE CM Original Note: Hep B result and CXR faxed to [facility] admissions. Pt to have tunnel cath placed this am then 1st dialysis today. OP notes and 1st treatment notes to be faxed once obtained. Davidson ALMONTE CM
--- NOTE | 2021-08-24 10:59 | CASEMGMT ---
MIMI faxed updates to [place]. MIMI also e-mailed Joleen, Lula Magana, and Barbara Irizarry (Joleen is out of the office and correspondence is supposed to go to Barbara or Lula. SW notified them that patient will be on dialysis. MIMI also asked if him being on dialysis will be a problem due to transportation. Leslie Caldera LOTTERY OFFICE MANAGER VIDEO EDITING INTERN
[2021-08-24] MEDS: Heparin 10,000 UNITS/10 ML Vial 10000 UNITS (11:15)
[2021-08-24] MEDS: Lidocaine 1% (50 ml mdv) 50 ML Vial (11:17)
[2021-08-24] MEDS: Bupivacaine Mpf 0.5% 30 ML VIAL (11:17)
--- NOTE | 2021-08-24 11:24 | OP.PCM_ITS ---
Problems Associated Problem List Diagnoses (1) GAYE (acute kidney injury): Report of Operation Date of Procedure: 08/24/21 Pre-Operative Diagnosis: Acute kidney injury Post-Operative Diagnosis: Same Surgery/Procedure Performed:: Placement of a 23 cm palindrome tunneled dialysis catheter Surgeon: Ijeoma manager of software: Bina Sandhu Type of Anesthesia: Local MAC Anesthesiologist: Phil Casanova Estimated Blood Loss (mL): < 25 cc Description of Procedure: Patient was brought in the operating room. Placed in the supine position. Under excellent MAC anesthetic right neck was ultrasound internal jugular vein was identified. Neck and chest were then sterilely prepped and draped in the usual fashion local was injected in the neck made 1 attempt to find the internal jugular vein but I was not able to I then used ultrasound and did an ultrasound-guided access to the right internal jugular vein placed the guidewire over this used fluoroscopy to confirm guidewire placement of the superior vena cava and remove the needle. I used the curved tunneled dialysis catheter as my guide injected local in the chest. Made an incision made an incision in the neck dilated down to the internal jugular vein. I tunneled from the chest over the collarbone into the neck and brought the catheter up. I then used sequential dilators over the catheter until I had the dilator and sheath in place removing the dilator and guidewire. I placed the tunneled dialysis catheter into the sheath removing the sheath. It laid nice and flat. Fluoroscopy was used to confirm this. It flushed and irrigated well and I flushed it with 2-1/2 cc in each of the openings. Skin in the neck was closed with interrupted 3-0 Vicryl in interrupted fashion. I brought the skin together with the catheter came out on the chest with a 3-0 Vicryl. I then sutured the catheter onto the skin with interrupted 3-0 nylon. Dermabond was applied sterile dressings were applied and the patient tolerated the procedure well. Portable chest x-ray was ordered Admit VTE Documentation VTE Present on Admission: No VTE Mechan Device Prophylaxis: SCD's VTE Pharm Prophylaxis ordered?: No Reason prophylaxis not ordered:: Procedure Not Indicated
--- NOTE | 2021-08-24 12:15 | RAD_ITS ---
STUDY: X-RAY CHEST REASON FOR EXAM: Male, 70 years old. Dialysis catheter placement. TECHNIQUE: Single AP portable view of the chest. COMPARISON: Comparison is made with prior study dated 08/18/2021. FINDINGS: A right-sided double-lumen catheter has been placed with the tip at the junction of the superior vena cava and right atrium. A right-sided PICC line catheter is seen and is unchanged. Persistent mild degree of vascular congestion. Mild increased markings at the lung bases. Blunting of both costophrenic angles. There is mild cardiac enlargement. Normal mediastinum and chante. Normal visualized pulmonary arteries. Normal visualized aortic arch and descending thoracic aorta. Normal visualized thoracic spine. Normal visualized ribs, clavicles, and shoulders. There is no demonstrated abnormality of the visualized soft tissue structures of the upper abdomen. RAD/CXR for Line Placement IMPRESSION: The tip of the right-sided double-lumen dialysis catheter is at the junction of the superior vena cava and right atrium. The remainder of the examination is unchanged. Electronically Signed: Saleem Saavedra MD at 12:34 EDT ,
[2021-08-24 13:05] LABS: Bedside Glucose 100 mg/dL (74-106)
--- NOTE | 2021-08-24 14:35 | PN.HOSP_ITS ---
Subjective Subjective Patient seen and examined. He had no acute complaints today. He denied any chest pain, palpitations, dizziness, shortness of breath, nausea or vomiting. Review of systems otherwise negative. He is to have a tunneled dialysis catheter inserted today. Review of systems otherwise negative. Objective Data Objective Data Vital Signs: Vital Signs Temp Pulse Resp BP Pulse Ox 97.6 F L 51 L 16 118/53 L 94 08/24/21 12:55 08/24/21 13:00 08/24/21 12:55 08/24/21 12:55 08/24/21 13:20 Oxygen Flow Rate (L/min) 3 Oxygen Delivery Method Bi-pap Weight: 356 lb 0.745 oz Body Mass Index (BMI) 55.7 Intake & Output: Intake and Output for Last 24 Hours 08/22/21 08/23/21 08/24/21 23:59 23:59 23:59 Intake Total 1139.75 / 1139.75 265.75 / 265.75 50 / 50 Output Total 375 / 375 250 / 550 650 / 650 Balance 764.75 / 764.75 15.75 / -284.25 -600 / -600 Lab / Micro Data Result Diagrams: 08/24/21 06:20 08/24/21 06:20 Labs: Laboratory Results - last 24 hr 08/23/21 17:31: POC Glucose 91 08/23/21 22:55: POC Glucose 127 H 08/24/21 06:20: WBC 12.8 H, RBC 2.72 L, Hgb 7.4 L, Hct 24.5 L, MCV 90.1, MCH 27.2, MCHC 30.2 L, RDW Std Deviation 66.6 H, RDW Coeff of Jory 20.6 H, Plt Count 265, MPV 9.5, Immature Gran % (Auto) 1.500 H, Neut % (Auto) 88.6 H, Lymph % (Auto) 2.7 L, [place] % (Auto) 6.2, Eos % (Auto) 0.9, Baso % (Auto) 0.1, Absolute Neuts (auto) 11.4 H, Absolute Lymphs (auto) 0.35 L, Nucleated RBC % 0.2, Anisocytosis 2+ 08/24/21 06:20: Sodium 133 L, Potassium 5.2 H, Chloride 97 L, Carbon Dioxide 26.0, Anion Gap 10, BUN 122 H*, Creatinine 3.78 H, Estim Creat Clear Calc 17.24, Est GFR (MDRD) Af Amer 21 L, Est GFR (MDRD) Non-Af 17 L, BUN/Creatinine Ratio 32.3 H, Glucose 109 H, Calcium 9.2, Phosphorus 5.4 H, Albumin 1.4 L 08/24/21 06:20: Hep Bs Antigen Non-Reactive 08/24/21 08:42: POC Glucose 107 H 08/24/21 13:02: POC Glucose 100 Micro: Microbiology 08/15/21 07:58 Blood Culture (Wb) - Other Blood Culture - Final No growth in 5 days. 08/14/21 06:50 Blood Culture (Wb) - Right Hand Blood Culture - Final No growth in 5 days. 08/12/21 10:16 Blood Culture (Wb) - Right Hand Blood Culture - Final Staphylococcus aureus 08/13/21 08:20 Blood Culture (Wb) - Other Blood Culture - Final Staphylococcus aureus 08/11/21 12:15 Blood Culture (Wb) - Right Hand Blood Culture - Final Staphylococcus aureus 08/10/21 18:54 Blood Culture (Wb) - Other Blood Culture - Final Staphylococcus aureus 08/10/21 15:29 Blood Culture (Wb) - Other Bacteria Detection (PCR) - Final Staphylococcus aureus 08/10/21 15:29 Blood Culture (Wb) - Other Blood Culture - Final Staphylococcus aureus 08/10/21 14:25 Urine Catheter - Franco Urine Culture - Final Escherichia coli Staphylococcus aureus 08/12/21 18:02 Stool Stool Occult Blood (DAMIAN) - Final Occult Blood Positive 08/12/21 10:00 Nasal Secretion SARS-CoV-2 Antigen (Rapid) - Final 08/10/21 13:45 Mucosa - Nasopharyngeal Respiratory Panel (PCR) - Final Radiography Diagnostic Testing: Radiology Impression Chest X-Ray 08/24/21 12:15 IMPRESSION: The tip of the right-sided double-lumen dialysis catheter is at the junction of the superior vena cava and right atrium. The remainder of the examination is unchanged. Electronically Signed: Saleem Saavedra MD at 12:34 EDT , Physical Exam Const alert, oriented x3 and no apparent distress Exam Limitations: no limitations Nutritional Appearance: morbidly obese HEENT head/scalp atraumatic and moist oral mucous membranes Head and Scalp: normocephalic Eyes PERRL, EOMs intact bilaterally and conjunctivae normal Neck no lymphadenopathy and supple Resp Resp Narrative: diminished breath sounds bibasally, no wheezes or crackles. On 3L of oxygen by nasal canula Cardio regular rate, regular rhythm, S1 normal heart sound, S2 normal heart sound and no murmurs GI normal to inspection, nondistended, normoactive bowel sounds, soft to palpation, non-tender and non-distended GI Narrative: very obese abdomen Extremity normal to inspection, full ROM and no clubbing, cyanosis or edema Peripheral Pulses: Yes pulses 2+ throughout Skin no rashes or lesions noted Skin Narrative: PICC line in LUE Neuro oriented x3, CN's II-XII intact bilaterally and moves all extremities Sensorium / Orientation: awake and alert Psych affect normal Assessment & Plan Assessment/Plan (1) Acute on chronic respiratory failure with hypoxia: (2) Bacteremia: PLAN: #Acute on chronic hypoxic respiratory failure due to COPD and CHF exacerbation * Was on 3 L at time of review. * Be diuresed with IV Lasix. Monitor intake and output. * Also uses BiPAP nightly. * Breathing treatments of bronchodilators. * Titrate oxygen to maintain sats above 90%.\ * Has known EF of 65% * #MSSA bacteremia * Blood cultures x2 are positive for MSSA. * Had SHLOMO which was negative for any vegetation. * ID on board. On IV cefazolin. To be on IV cefazolin for total of 6 weeks till September 25, 2021 * #Second-degree AV block * Complicated by episodes of V. tach. * Cardiology on board. Will likely need a pacemaker placed after MSSA bacteremia has resolved. * #Hypokalemia: Resolved #GAYE on CKD stage IV * Nephrology on board. Appreciate recs. Had tunneled dialysis catheter inserted today. * Will need dialysis. * #Chronic anemia: * Stool for occult blood was positive on 07/14/2021. * GI consulted and want to hold off on any EGD for now due to his complicated medical history. * To follow-up on outpatient basis for EGD as needed. * #DVT: Not on anticoagulation due to anemia and positive occult blood in stool #Debility and failure to thrive: PT OT on board. For placement Due to prophylaxis: SCDs Charges/Coding Visit Charges Inpatient E&M: 59698 Subs Hosp L2
[2021-08-24 15:41] LABS: Bedside Glucose 114 mg/dL (74-106)
--- NOTE | 2021-08-24 18:34 | DIALYSIS ---
Hemodialysis x2.5 hours completed at 1810 on a 2K bath, 1st treatment, tolerated well, UF 1000mL, profile A throughout tx, SBP 90s last 45 mins of tx, accessed via new right chest tunneled dialysis catheter, worked well, next tx planned for tomorrow
[2021-08-24] MEDS: Pantoprazole Sodium 40 MG Tablet PO (23:06)
[2021-08-24] MEDS: guaiFENesin 1,200 MG Tablet 1200 MG PO (23:06)
[2021-08-24] MEDS: Latanoprost 0.005% 1 Bottle 1 DRP EACH EYE (23:07)
[2021-08-25] VITALS (12 sets, daily range): BP systolic 93–143; BP diastolic 51–71; PULSE 48–61; RESP 18–28; TEMP 36.2–36.7; O2SAT 94–98
[2021-08-25 01:46] LABS: Bedside Glucose 92 mg/dL (74-106)
[2021-08-25 01:46] LABS: Bedside Glucose 84 mg/dL (74-106)
[2021-08-25] MEDS: 0.9% Saline Lock 10 ML Syringe IV ×2 (02:03→03:04)
[2021-08-25] MEDS: Alteplase 2 MG/2 ML Vial IV ×2 (02:03)
--- NOTE | 2021-08-25 02:35 | NURSING ---
0200: Pt's arm manipulated to facilitate blood withdrawal, unable to pull blood or easily flush lumens w/NS. Alteplase 2mg instilled into both lumens of pt's double-lumen PICC to RUE following policy and procedure. Lumens locked, alteplase syringes remain connected to new caps, syringes taped to pt's arm. Staff and pt instructed not to touch syringes. 0235: Tape to syringes removed, alteplase withdraws easily from both lumens, additional 5ml of blood removed as well. Both lumens flushed w/20ml NS easily. PICC drsg and statlock removed, site cleaned w/CHG scrub per policy, new sterile statlock secured and CHG drsg applied. Pt azra all well. Drsg dated and timed. 0300: bullet swaging machine operatorGAGE Escalante at bedside to administer IV ATB, instructed to apply green Curos caps as per policy.
[2021-08-25] MEDS: Cefazolin 1 GM/50 ML BAG IV ×2 (03:18→12:18)
--- NOTE | 2021-08-25 04:54 | NURSING ---
'Contacted Thang in pharmacy for shelf life of Cefazolin since med was out but unable to be administered as PICC was occluded. Cefazolin administered late due to Cath flow administration needed to PICC. Pharmacy notified and consecutive doses do not need to be adjusted
[2021-08-25] MEDS: Levothyroxine 25 MCG TABLET PO (06:11)
[2021-08-25 06:41] LABS: Absolute Lymphocyte Count 0.49 X10^3/uL (0.83-4.51); Absolute Neutrophil Count 10.6 X10^3/uL (2.0-7.7); Basophil# 0.02 X10^3/uL; Basophil% 0.2 % (0-1); Eosinophil# 0.18 X10^3/uL; Eosinophils% 1.5 % (0-5); Lymphocyte # 0.49 X10^3/ul (0.83-4.51); Mean Corp Hgb Conc 29.2 g/dL (32-36); Mean Corpuscular Hgb 26.7 pg (27.0-32.0); Mean Corpuscular Volume 91.6 fL (80-94); Mean Platelet Vol. 9.4 fl (6.2-12.0); Monocyte# 0.86 X10^3/uL; NRBC Flagged by Analyzer 0 % (0-5); Neutrophil # 10.63 X10^3/uL (2.7-7.7); Neutrophil % 86.2 % (47-70); POSITIVE DIFFERENTIAL YES; POSITIVE MORPHOLOGY YES; Platelet Count 255 K/mm3 (150-450); RBC Distribution Width CV 20.8 % (11.6-14.6); Red Blood Count 2.62 M/mm3 (4.6-6.2); White Blood Count 12.3 K/mm3 (4.4-11.0)
[2021-08-25 06:50] LABS: Differential Indicated SCAN CRITERIA MET
[2021-08-25 07:06] LABS: Anion Gap 7 (5-15); BUN 83 mg/dL (7-18); BUN/Creat Ratio 27.4 RATIO (10-20); Chloride 98 mmol/L (98-107); Creatinine, Serum 3.03 mg/dL (0.70-1.30); EST Glomerular Filtration Rate 22 mL/min (>60); Est Glom Filt Rate - Afr Amer 26 mL/min (>60); Estimated Creatinine Clearance 21.51 ml/min; Glucose 103 mg/dL (74-106); Potassium 4.9 mmol/L (3.5-5.1); Sodium Level 133 mmol/L (136-145)
[2021-08-25 07:08] LABS: Anisocytosis 2+
[2021-08-25] MEDS: Ipratropium/Albuterol Sulfate 3 ML AMPUL.NEB INHALATION ×4 (07:20→20:49)
--- NOTE | 2021-08-25 07:55 | CASEMGMT ---
MIMI received an e-mail response from Lula at [facility] around midnight 08-25-21. They cannot take patient back on dialysis. They do not have the transportation to take patient back and forth 3 times a week. MIMI will work with family on choosing another facility. Leslie GAINES
[2021-08-25] MEDS: Menthol/Lanolin/Calamine/Znox 113 GM Tube 1 APPLIC TOPICAL ×2 (08:27→21:06)
[2021-08-25] MEDS: Pantoprazole Sodium 40 MG Tablet PO ×2 (08:29→21:11)
[2021-08-25] MEDS: guaiFENesin 1,200 MG Tablet 1200 MG PO ×2 (08:29→21:11)
[2021-08-25] MEDS: Insulin Lispro 100 UNIT/ML INSULN.PEN SC ×2 (08:29→16:45)
[2021-08-25 09:25] LABS: Bedside Glucose 98 mg/dL (74-106)
--- NOTE | 2021-08-25 10:49 | CASEMGMT ---
MIMI notified patient's POA Alison that [facility] is not able to take patient back as they cannot transport him to and from dialysis. 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 Alison asked MIMI to check with [facility] and [facility] as those are within his saini range. She was also okay to see if SW can transport. MIMI will work on this. Leslie Caldera CONTINUOUS CHURN BUTTERMAKER DRYWALL APPLICATION SUPERVISOR
[2021-08-25] MEDS: Acetaminophen 325 MG Tablet 650 MG PO ×2 (11:15→21:01)
[2021-08-25] MEDS: oxyCODONE 5 MG Tablet PO ×2 (11:15→21:01)
[2021-08-25 12:26] LABS: Bedside Glucose 120 mg/dL (74-106)
--- NOTE | 2021-08-25 12:27 | CASEMGMT ---
MIMI called [facility] and they are not able to manage patient due to his weight. Their weight limit is 350. MIMI called [facility] and they are not able to take patient due to his weight and the fact that he is not mobile. MIMI then called Tammy at [facility] and made referral. She will check to see if they can do the transport and get back to . MIMI faxed referral to [facility]. Await response. Leslie Caldera ORTHOPEDIC MECHANIC LIANA
--- NOTE | 2021-08-25 12:30 | PN.HOSP_ITS ---
Subjective Subjective Patient seen and examined. He has no complaints and had an uneventful night. Review of systems is otherwise negative. He had insertion of tunneled dialysis catheter yesterday, and had dialysis yesterday with removal of 1L of fluid. He remains bradycardic. Objective Data Objective Data Vital Signs: Vital Signs Temp Pulse Resp BP Pulse Ox 98.0 F 52 L 24 H 118/51 L 96 08/25/21 08:35 08/25/21 11:10 08/25/21 11:10 08/25/21 08:35 08/25/21 08:35 Oxygen Flow Rate (L/min) 5 Oxygen Delivery Method Nasal Cannula Weight: 375 lb 0.101 oz Body Mass Index (BMI) 55.7 Intake & Output: Intake and Output for Last 24 Hours 08/23/21 08/24/21 08/25/21 23:59 23:59 23:59 Intake Total 265.75 / 265.75 50 / 50 50 / 50 Output Total 250 / 550 1650 / 1650 150 / 150 Balance 15.75 / -284.25 -1600 / -1600 -100 / -100 Lab / Micro Data Result Diagrams: 08/25/21 06:05 08/25/21 06:05 Labs: Laboratory Results - last 24 hr 08/24/21 13:02: POC Glucose 100 08/24/21 15:36: POC Glucose 114 H 08/24/21 21:14: POC Glucose 84 08/25/21 00:02: POC Glucose 92 08/25/21 06:05: WBC 12.3 H, RBC 2.62 L, Hgb 7.0 L, Hct 24.0 L, MCV 91.6, MCH 26.7 L, MCHC 29.2 L, RDW Std Deviation 69.0 H, RDW Coeff of Jory 20.8 H, Plt Count 255, MPV 9.4, Immature Gran % (Auto) 1.100 H, Neut % (Auto) 86.2 H, Lymph % (Auto) 4.0 L, [place] % (Auto) 7.0, Eos % (Auto) 1.5, Baso % (Auto) 0.2, Absolute Neuts (auto) 10.6 H, Absolute Lymphs (auto) 0.49 L, Nucleated RBC % 0, Anisocytosis 2+ 08/25/21 06:05: Sodium 133 L, Potassium 4.9, Chloride 98, Carbon Dioxide 28.0, Anion Gap 7, BUN 83 H, Creatinine 3.03 H, Estim Creat Clear Calc 21.51, Est GFR (MDRD) Af Amer 26 L, Est GFR (MDRD) Non-Af 22 L, BUN/Creatinine Ratio 27.4 H, Glucose 103, Calcium 9.0 08/25/21 08:18: POC Glucose 98 08/25/21 12:17: POC Glucose 120 H Micro: Microbiology 08/15/21 07:58 Blood Culture (Wb) - Other Blood Culture - Final No growth in 5 days. 08/14/21 06:50 Blood Culture (Wb) - Right Hand Blood Culture - Final No growth in 5 days. 08/12/21 10:16 Blood Culture (Wb) - Right Hand Blood Culture - Final Staphylococcus aureus 08/13/21 08:20 Blood Culture (Wb) - Other Blood Culture - Final Staphylococcus aureus 08/11/21 12:15 Blood Culture (Wb) - Right Hand Blood Culture - Final Staphylococcus aureus 08/10/21 18:54 Blood Culture (Wb) - Other Blood Culture - Final Staphylococcus aureus 08/10/21 15:29 Blood Culture (Wb) - Other Bacteria Detection (PCR) - Final Staphylococcus aureus 08/10/21 15:29 Blood Culture (Wb) - Other Blood Culture - Final Staphylococcus aureus 08/10/21 14:25 Urine Catheter - Franco Urine Culture - Final Escherichia coli Staphylococcus aureus 08/12/21 18:02 Stool Stool Occult Blood (DAMIAN) - Final Occult Blood Positive 08/12/21 10:00 Nasal Secretion SARS-CoV-2 Antigen (Rapid) - Final 08/10/21 13:45 Mucosa - Nasopharyngeal Respiratory Panel (PCR) - Final Radiography Diagnostic Testing: Radiology Impression Chest X-Ray 08/24/21 12:15 IMPRESSION: The tip of the right-sided double-lumen dialysis catheter is at the junction of the superior vena cava and right atrium. The remainder of the examination is unchanged. Electronically Signed: Saleem Saavedra MD at 12:34 EDT , Physical Exam Const alert, oriented x3 and no apparent distress General Appearance: cooperative Exam Limitations: no limitations Nutritional Appearance: morbidly obese HEENT normocephalic, head/scalp atraumatic and moist oral mucous membranes Head and Scalp: normocephalic Eyes PERRL, EOMs intact bilaterally and conjunctivae normal Neck no lymphadenopathy, supple and no JVD Resp normal respiratory effort, no retractions, no use of accessory muscles and clear to auscultation bilaterally Resp Narrative: diminished breath sounds bibasally, no wheezes or crackles. On 5L of oxygen by nasal canula Auscultation: Negative for crackles, rales, rhonchi or wheezes Cardio regular rate, regular rhythm, S1 normal heart sound, S2 normal heart sound and no murmurs GI normal to inspection, nondistended, normoactive bowel sounds, soft to palpation, non-tender and non-distended; Negative for hepatosplenomegaly GI Narrative: very obese abdomen Extremity normal to inspection, full ROM and no clubbing, cyanosis or edema General Extremity: edema Peripheral Pulses: Yes pulses 2+ throughout Skin no rashes or lesions noted and no wounds Skin Narrative: PICC line in LUE; tunneled dialysis catheter in place Neuro oriented x3, CN's II-XII intact bilaterally, moves all extremities, no focal m otor deficits and no sensory deficits noted Sensorium / Orientation: awake and alert Psych affect normal Appearance: appropriate Assessment & Plan Assessment/Plan (1) Acute on chronic respiratory failure with hypoxia: (2) Bacteremia: PLAN: #Acute on chronic hypoxic respiratory failure due to COPD and CHF exacerbation * Was on 5 L at time of review. * on IV lasix. * Also uses BiPAP nightly. * Breathing treatments of bronchodilators. * Titrate oxygen to maintain sats above 90%.\ * Has known EF of 65% * #MSSA bacteremia * Blood cultures x2 are positive for MSSA. * Had SHLOMO which was negative for any vegetation. * ID on board. On IV cefazolin. To be on IV cefazolin for total of 6 weeks till September 25, 2021 * #Second-degree AV block * Complicated by episodes of V. tach. * Cardiology on board. Will likely need a pacemaker placed after MSSA bacteremi a has resolved. * remains bradycardic, with HR in the 50s. * #Hypokalemia: Resolved #GAYE on CKD stage IV * Nephrology on board. Appreciate recs. * Had tunneled dialysis catheter inserted yesterday, and had dialysis yesterday, with removal of 1L of fluid. * #Chronic anemia: * Hb is 7. transfuse if hb <7 * Stool for occult blood was positive on 07/14/2021. * GI consulted and want to hold off on any EGD for now due to his complicated medical history. * To follow-up on outpatient basis for EGD as needed. * #DVT: Not on anticoagulation due to anemia and positive occult blood in stool #Debility and failure to thrive: PT OT on board. For placement Due to prophylaxis: SCDs Disposition: awaiting placement Charges/Coding Visit Charges Inpatient E&M: 89125 Subs Hosp L3
--- NOTE | 2021-08-25 12:45 | PN.RENAL_ITS ---
Subjective Subjective Seen at end of dialysis today. Denies any complaints. Tolerated 2liters fluid removal with HD today. Objective Data Objective Data Vital Signs: Vital Signs Temp Pulse Resp BP Pulse Ox 98.0 F 52 L 24 H 118/51 L 96 08/25/21 08:35 08/25/21 11:10 08/25/21 11:10 08/25/21 08:35 08/25/21 08:35 Oxygen Flow Rate (L/min) 5 Oxygen Delivery Method Nasal Cannula Weight: 170.1 kg Body Mass Index (BMI) 55.7 Intake & Output: Intake and Output for Last 24 Hours 08/23/21 08/24/21 08/25/21 23:59 23:59 23:59 Intake Total 265.75 / 265.75 50 / 50 50 / 50 Output Total 250 / 550 1650 / 1650 150 / 150 Balance 15.75 / -284.25 -1600 / -1600 -100 / -100 Lab / Micro Data Result Diagrams: 08/25/21 06:05 08/25/21 06:05 Labs: Laboratory Results - last 24 hr 08/24/21 13:02: POC Glucose 100 08/24/21 15:36: POC Glucose 114 H 08/24/21 21:14: POC Glucose 84 08/25/21 00:02: POC Glucose 92 08/25/21 06:05: WBC 12.3 H, RBC 2.62 L, Hgb 7.0 L, Hct 24.0 L, MCV 91.6, MCH 26.7 L, MCHC 29.2 L, RDW Std Deviation 69.0 H, RDW Coeff of Jory 20.8 H, Plt Count 255, MPV 9.4, Immature Gran % (Auto) 1.100 H, Neut % (Auto) 86.2 H, Lymph % (Auto) 4.0 L, Caldwell % (Auto) 7.0, Eos % (Auto) 1.5, Baso % (Auto) 0.2, Absolute Neuts (auto) 10.6 H, Absolute Lymphs (auto) 0.49 L, Nucleated RBC % 0, Anisocytosis 2+ 08/25/21 06:05: Sodium 133 L, Potassium 4.9, Chloride 98, Carbon Dioxide 28.0, Anion Gap 7, BUN 83 H, Creatinine 3.03 H, Estim Creat Clear Calc 21.51, Est GFR (MDRD) Af Amer 26 L, Est GFR (MDRD) Non-Af 22 L, BUN/Creatinine Ratio 27.4 H, Glucose 103, Calcium 9.0 08/25/21 08:18: POC Glucose 98 08/25/21 12:17: POC Glucose 120 H Micro: Microbiology 08/15/21 07:58 Blood Culture (Wb) - Other Blood Culture - Final No growth in 5 days. 08/14/21 06:50 Blood Culture (Wb) - Right Hand Blood Culture - Final No growth in 5 days. 08/12/21 10:16 Blood Culture (Wb) - Right Hand Blood Culture - Final Staphylococcus aureus 08/13/21 08:20 Blood Culture (Wb) - Other Blood Culture - Final Staphylococcus aureus 08/11/21 12:15 Blood Culture (Wb) - Right Hand Blood Culture - Final Staphylococcus aureus 08/10/21 18:54 Blood Culture (Wb) - Other Blood Culture - Final Staphylococcus aureus 08/10/21 15:29 Blood Culture (Wb) - Other Bacteria Detection (PCR) - Final Staphylococcus aureus 08/10/21 15:29 Blood Culture (Wb) - Other Blood Culture - Final Staphylococcus aureus 08/10/21 14:25 Urine Catheter - Franco Urine Culture - Final Escherichia coli Staphylococcus aureus 08/12/21 18:02 Stool Stool Occult Blood (DAMIAN) - Final Occult Blood Positive 08/12/21 10:00 Nasal Secretion SARS-CoV-2 Antigen (Rapid) - Final 08/10/21 13:45 Mucosa - Nasopharyngeal Respiratory Panel (PCR) - Final Physical Exam Narrative Const: A&Ox3 HEENT: PERRLA, oral mucosa moist Cardio: S1 S2 RRR Resp: Lungs are clear to auscultation anteriorly, diminished posterior breath sounds. No rales or rhonchi Abdomen: Obese, normal bowel sound, soft, nontender, no guarding or rebound. Extremities: 2-3+ lower extremity edema. SHELLI wraps intact. Assessment & Plan Assessment/Plan (1) GAYE (acute kidney injury): PLAN: - The patient has normal baseline kidney function. His serum creatinine was 0.95 mg/dL on 06/21/2021. 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 -Serum creatinine peaked at 3.60 mg/dL in July with gradual improvement. -The patient admitted again on 08/11/2021 with volume overload/heart failure with preserved ejection fraction exacerbation. So, there may be some component of GAYE from cardiorenal syndrome as well. -BUN and creatinine continues to worsen daily and UOP amount declining. Bedside bladder scan was done and negative. Likely sustained another episode of ATN. - Blood cultures drawn 08/14 and again 08/15 were negative hence he should be able t o get a tunneled dialysis catheter. - I spoke to both patient and his niece Alison regarding dialysis, discussed risks and benefit of dialysis versus not doing dialysis. Questions answered. Both are in agreement to move forward with EXTENSION SERVICE AGENT. Tunneled HD catheter placed 08/24. - SCr peaked 3.78mg/dL, BUN 122 on 08/24. 1st HD 08/24 over 2.5hrs with 1liter UF. HD again today 2kbath, 3hours with 2L UF. - bps acceptable, not on any antihypertensives - likely next HD will be Monday unless acute need arises. - discharge plans in progress. Possibly to [facility]. (2) Anemia: PLAN: -The patient likely has anemia of chronic disease. -Unfortunately, there is no role for MERLIN in the setting of GAYE. -Continue to monitor hemoglobin and transfuse if less than 7 g/dL. (3) Acute on chronic respiratory failure with hypoxia: PLAN: - The patient has multifactorial explanations for acute hypoxic respiratory failure. (4) Bacteremia: PLAN: -The patient has persistent MSSA bacteremia. SHLOMO negative. Left knee and left shoulder aspirate dry tap -The patient is currently on cefazolin 1gm bid via PICC, stop date 09/25. - Cefazolin can be given post HD if needed instead of per PICC. - ID following - discussed with discharge planning team
--- NOTE | 2021-08-25 14:15 | CASEMGMT ---
MIMI received a call from Tammy with [facility]. Clinically they can accept patient. However, she is working out transportation to dialysis. She will get back to if she is able to set up transportation. Leslie GAINES
--- NOTE | 2021-08-25 14:44 | DIALYSIS ---
Hemodialysis x3 hours completed at 1220 on a 2K bath, 2nd treatment, tolerated well, UF 2000mL, profile A throughout tx, accessed via right chest tunneled dialysis catheter, worked well, better BPs today during dialysis, 143/71 post, next tx planned for Monday
--- NOTE | 2021-08-25 15:24 | CASEMGMT ---
Addendum entered by Emily Camara 08/25/21 15:32: Cefazolin script faxed to [facility]. Davidson ALMONTE CM Original Note: Per Dr. Gallardo, new script for antibx given to Kathryn LE and pt's antibx can be given at dialysis. Davidson ALMONTE CM
--- NOTE | 2021-08-25 16:26 | CASEMGMT ---
MIMI received a return call from Tammy with [facility]. They were able to get patient's dialysis switched to [id number]. Therefore, they can transport patient to and from dialysis. MIMI told her patient will likely be ready tomorrow. MIMI also told Tammy that patient will be on an IV antibiotic, but the physician wants him to have it while at dialysis. MIMI called patient's niece, Alison. MIMI notified her [facility] cannot accept patient due to his weight and immobility. MIMI told her [facility] can take patient and can transport him to dialysis. Alison's only hang up with [facility] is that long term care administrator is more expensive. Alison realizes however that [facility] is the only option right now. MIMI told her if patient ends up not needing dialysis at some point he could always go back to [place]. She agreed with [facility] at d/c. She then asked SW to check with [facility]. Admissions is gone for the day. SW will contact [facility] in the am. Leslie GAINES
[2021-08-25] MEDS: Heparin 10,000 UNITS/10 ML Vial 3800 UNITS IV (16:48)
[2021-08-25 16:56] LABS: Bedside Glucose 140 mg/dL (74-106)
--- NOTE | 2021-08-25 18:38 | PCM.PN.ID ---
Physical Exam Narrative Knee sore. HD today, no fever Const alert and no apparent distress General Appearance: cooperative Resp normal air movement and clear to auscultation bilaterally Cardio regular rate and regular rhythm GI soft to palpation, non-tender and non-distended Skin no rashes or lesions noted ID ID: Route of nutrition/ use of supplements: [] Nutritional Intake: [] IV Site: [] Franco Catheter: [] Assessment & Plan Assessment/Plan (1) MSSA bacteremia: PLAN: Bcx with MSSA again. Ucx with ecoli. 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 Splinter hemorrhages seen on fingers. Cont cefazolin. Neg SHLOMO. Repeat bcx neg at 72+ hours at this point. Plan is for 6 weeks iv cefazolin, stop date 09/25/21. ID followup in 2 weeks. May need longer course of po abx once iv is complete due to suspected joint involvement as potential explanation for recurrence. Adjusted abx dose due to worsened Cr. Knee still painful. HD started. Abx at discharge dosed with HD; picc can be removed. Will follow, d/w embedded case manager
[2021-08-25] MEDS: Latanoprost 0.005% 1 Bottle 1 DRP EACH EYE (21:11)
[2021-08-25 21:20] LABS: Bedside Glucose 104 mg/dL (74-106)
[2021-08-26] VITALS (11 sets, daily range): BP systolic 97–152; BP diastolic 47–126; PULSE 46–56; RESP 14–21; TEMP 36.3–36.6; O2SAT 95–100
[2021-08-26 06:14] LABS: Anion Gap 9 (5-15); BUN 58 mg/dL (7-18); BUN/Creat Ratio 21.4 RATIO (10-20); Calcium,Total 8.6 mg/dL (8.5-10.1); Chloride 97 mmol/L (98-107); Creatinine, Serum 2.71 mg/dL (0.70-1.30); EST Glomerular Filtration Rate 25 mL/min (>60); Est Glom Filt Rate - Afr Amer 30 mL/min (>60); Estimated Creatinine Clearance 24.05 ml/min; Glucose 98 mg/dL (74-106); Potassium 4.3 mmol/L (3.5-5.1); Sodium Level 133 mmol/L (136-145)
[2021-08-26] MEDS: Levothyroxine 25 MCG TABLET PO (06:52)
[2021-08-26 07:00] LABS: Bedside Glucose 245 mg/dL (74-106)
[2021-08-26] MEDS: Ipratropium/Albuterol Sulfate 3 ML AMPUL.NEB INHALATION ×2 (07:27→10:29)
[2021-08-26] MEDS: Menthol/Lanolin/Calamine/Znox 113 GM Tube 1 APPLIC TOPICAL (09:16)
[2021-08-26] MEDS: guaiFENesin 1,200 MG Tablet 1200 MG PO (09:18)
[2021-08-26] MEDS: Pantoprazole Sodium 40 MG Tablet PO (09:18)
[2021-08-26] MEDS: Insulin Lispro 100 UNIT/ML INSULN.PEN SC ×3 (09:19→18:12)
[2021-08-26] MEDS: oxyCODONE 5 MG Tablet PO (09:28)
[2021-08-26] MEDS: Acetaminophen 325 MG Tablet 650 MG PO (09:29)
[2021-08-26] MEDS: Cefazolin 1 GM/50 ML BAG IV (09:30)
--- NOTE | 2021-08-26 10:16 | PN.RENAL_ITS ---
Subjective Subjective Resting quietly, no overnight events. Denies any complaints except for pain in legs. Objective Data Objective Data Vital Signs: Vital Signs Temp Pulse Resp BP Pulse Ox 97.6 F L 55 L 20 H 152/126 H 95 08/26/21 06:30 08/26/21 07:30 08/26/21 07:30 08/26/21 06:30 08/26/21 08:02 Oxygen Flow Rate (L/min) 3 Oxygen Delivery Method Nasal Cannula Weight: 169.5 kg Body Mass Index (BMI) 55.7 Intake & Output: Intake and Output for Last 24 Hours 08/24/21 08/25/21 08/26/21 23:59 23:59 23:59 Intake Total 50 / 50 580 / 580 170 / 170 Output Total 1650 / 1650 2150 / 2150 100 / 100 Balance -1600 / -1600 -1570 / -1570 70 / 70 Lab / Micro Data Result Diagrams: 08/25/21 06:05 08/26/21 04:41 Labs: Laboratory Results - last 24 hr 08/25/21 12:17: POC Glucose 120 H 08/25/21 16:43: POC Glucose 140 H 08/25/21 21:10: POC Glucose 104 08/26/21 04:41: Sodium 133 L, Potassium 4.3, Chloride 97 L, Carbon Dioxide 27.0, Anion Gap 9, BUN 58 H, Creatinine 2.71 H, Estim Creat Clear Calc 24.05, Est GFR (MDRD) Af Amer 30 L, Est GFR (MDRD) Non-Af 25 L, BUN/Creatinine Ratio 21.4 H, Glucose 98, Calcium 8.6 08/26/21 06:43: POC Glucose 245 H Micro: Microbiology 08/15/21 07:58 Blood Culture (Wb) - Other Blood Culture - Final No growth in 5 days. 08/14/21 06:50 Blood Culture (Wb) - Right Hand Blood Culture - Final No growth in 5 days. 08/12/21 10:16 Blood Culture (Wb) - Right Hand Blood Culture - Final Staphylococcus aureus 08/13/21 08:20 Blood Culture (Wb) - Other Blood Culture - Final Staphylococcus aureus 08/11/21 12:15 Blood Culture (Wb) - Right Hand Blood Culture - Final Staphylococcus aureus 08/10/21 18:54 Blood Culture (Wb) - Other Blood Culture - Final Staphylococcus aureus 08/10/21 15:29 Blood Culture (Wb) - Other Bacteria Detection (PCR) - Final Staphylococcus aureus 08/10/21 15:29 Blood Culture (Wb) - Other Blood Culture - Final Staphylococcus aureus 08/10/21 14:25 Urine Catheter - Franco Urine Culture - Final Escherichia coli Staphylococcus aureus 08/12/21 18:02 Stool Stool Occult Blood (DAMIAN) - Final Occult Blood Positive 08/12/21 10:00 Nasal Secretion SARS-CoV-2 Antigen (Rapid) - Final 08/10/21 13:45 Mucosa - Nasopharyngeal Respiratory Panel (PCR) - Final Physical Exam Narrative Const: A&Ox3 HEENT: PERRLA, oral mucosa moist Cardio: S1 S2 RRR Resp: Lungs are clear to auscultation anteriorly, diminished posterior breath sounds. No rales or rhonchi Abdomen: Obese, normal bowel sound, soft, nontender, no guarding or rebound. Extremities: 2-3+ lower extremity edema. SHELLI wraps intact. Assessment & Plan Assessment/Plan (1) GAYE (acute kidney injury): PLAN: - The patient has normal baseline kidney function. His serum creatinine was 0.95 mg/dL on 06/21/2021. 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 -Serum creatinine peaked at 3.60 mg/dL in July with gradual improvement. -The patient admitted again on 08/11/2021 with volume overload/heart failure with preserved ejection fraction exacerbation. So, there may be some component of GAYE from cardiorenal syndrome as well. -BUN and creatinine continued to worsen daily and UOP amount declining. Bedside bladder scan was done and negative. Likely sustained another episode of ATN. - Blood cultures drawn 08/14 and again 08/15 were negative hence he got a tunneled dialysis catheter. - I spoke to both patient and his niece Alison regarding dialysis, discussed risks and benefit of dialysis versus not doing dialysis. Questions answered. Both are in agreement to move forward with GERIATRIC ASSISTANT. Tunneled HD catheter placed 08/24. - SCr peaked 3.78mg/dL, BUN 122 on 08/24. 1st HD 08/24 over 2.5hrs with 1liter UF. HD again 08/25 2kbath, 3hours with 2L UF. - bps acceptable, not on any antihypertensives -No acute indication for GERIATRIC ASSISTANT today, next dialysis tomorrow. We will continue to remove fluid with dialysis and monitor for renal recovery. - discharge plans in progress. Possibly to [facility] with transportation to and from dialysis Monday. (2) Anemia: PLAN: -The patient likely has anemia of chronic disease -Continue to monitor hemoglobin and transfuse if less than 7 g/dL. (3) Acute on chronic respiratory failure with hypoxia: PLAN: - The patient has multifactorial explanations for acute hypoxic respiratory failure. (4) Bacteremia: PLAN: -The patient has persistent MSSA bacteremia. SHLOMO negative. Left knee and left shoulder aspirate dry tap -The patient was on cefazolin 1gm bid via PICC, stop date 09/25. -At time of discharge he will get cefazolin 2 g IV post each HD session with stop date 09/25/2021 - ID following - discussed with discharge planning team
--- NOTE | 2021-08-26 11:29 | CASEMGMT ---
MIMI had tried to reach [facility] all morning and was not able to get through until just now. MIMI spoke with Ann and told her patient's weight and dialysis schedule. Ann said they could possibly take patient and asked MIMI to send referral. MIMI faxed referral. Await response. Leslie Caldera HEALTH PHYSICS TECHNICIAN LIANA
[2021-08-26 11:51] LABS: Bedside Glucose 92 mg/dL (74-106)
--- NOTE | 2021-08-26 11:53 | CASEMGMT ---
Addendum entered by Emily Camara 08/26/21 12:49: Per Sultana at [facility], pt is financially cleared and per Serjio, pt is medically cleared. Kathryn LE aware, voices understanding. Davidson ALMONTE CM Addendum entered by Emily Camara 08/26/21 12:07: Pt's dialysis run notes faxed to [facility] admissions and call to Randi to check on financial/medical clearance as pt is still not cleared in portal. CM to follow. Davidson ALMONTE CM Original Note: Per Serjio at [facility], pt's chair time was changed to [id number] [id number] arrival time so that SNF could get transport set up. Davidson ALMONTE CM
[2021-08-26 12:44] LABS: Absolute Lymphocyte Count 0.48 X10^3/uL (0.83-4.51); Absolute Neutrophil Count 9.3 X10^3/uL (2.0-7.7); Basophil# 0.01 X10^3/uL; Basophil% 0.1 % (0-1); Eosinophils% 0.9 % (0-5); Hematocrit 24.4 % (40-54); Hemoglobin 7.2 g/dL (13.0-16.5); Lymphocyte # 0.48 X10^3/ul (0.83-4.51); Lymphocyte % 4.4 % (19-41); Mean Corp Hgb Conc 29.5 g/dL (32-36); Mean Corpuscular Hgb 27.4 pg (27.0-32.0); Mean Corpuscular Volume 92.8 fL (80-94); Mean Platelet Vol. 9.3 fl (6.2-12.0); Monocyte# 0.85 X10^3/uL; Monocyte% 7.8 % (0-10); NRBC Flagged by Analyzer 0 % (0-5); Neutrophil # 9.33 X10^3/uL (2.7-7.7); Neutrophil % 85.7 % (47-70); POSITIVE DIFFERENTIAL YES; POSITIVE MORPHOLOGY YES; Platelet Count 226 K/mm3 (150-450); RBC Distribution Width CV 20.3 % (11.6-14.6); RBC Distribution Width SD 69.3 fl (35.1-43.9); Red Blood Count 2.63 M/mm3 (4.6-6.2); White Blood Count 10.9 K/mm3 (4.4-11.0)
[2021-08-26 12:46] LABS: Differential Indicated SCAN CRITERIA MET
--- NOTE | 2021-08-26 12:55 | CASEMGMT ---
MIMI called [facility] to check on referral. Ann told MIMI her ornament maker hand was still looking at the referral and will get back to MIMI soon. Leslie Caldera PICK OUT HAND LIANA
[2021-08-26 13:27] LABS: Differential Comment SCANNED
--- NOTE | 2021-08-26 13:30 | CASEMGMT ---
MIMI received a call from [facility] and [facility]. MIMI asked Ann if they are going to be able to transport patient to and from dialysis and she said they will set it up with an ambulance company. MIMI told Ann LE is going to check with patient's niece to see which she prefers and will get back to her. MIMI called patient's niece, Alison and left her a voice mail letting her know [facility] said they can take patient and transport him to and from dialysis. MIMI asked Alison to call MIMI back and let MIMI know if she would like [facility] or [facility]. MIMI updated physician and RN. Await return call from héctor. Plan: [facility] vs [facility]
--- NOTE | 2021-08-26 14:36 | CASEMGMT ---
Patient's niece Alison called MIMI back and [facility] MIMI called Tammy at [facility] and let her know [facility] MIMI notified Ann at [facility] that patient will be coming to them today. MIMI faxed healthcare POA and patient's DNRCC-A to [facility] per Ann's request. MIMI notified physician and RN. Await COVID test and orders. Alison would like notified of a worm picker time for patient. MIMI will let patient know about [facility]. Leslie Caldera HAND STONECUTTER READING INTERVENTION TEACHER
--- NOTE | 2021-08-26 14:37 | DS.PCM_ITS ---
Providers Date of Admission: 08/10/21 Primary Care Physician: Dr. Maury Harley, Consultations 08/10/21 14:20 Consult: Nephrology Routine Consulting Provider: Ciarra Valencia Reason for Consult: GAYE on CKD G4 EMERGENT Consult: No MD Notified: Yes Date Notified: 08/10/21 Time Notified: 14:21 Method of Notification: Verbal 08/10/21 17:39 Consult: Onc/Wound/supervisor cartography Routine Comment: Reason for Consult:: coccyx wound 08/11/21 11:31 Consult: Infectious Disease Routine Consulting Provider: Osmany Gallardo Reason for Consult: Positive blood culture, staph. Suspicion of pneumonia EMERGENT Consult: No MD Notified: Yes Date Notified: 08/11/21 Time Notified: 11:31 Method of Notification: Text 08/12/21 10:37 Consult: Orthopedics Routine Consulting Provider: Festus Quarles Reason for Consult: Left shoulder and knee pain, MSSA source unclear? EMERGENT Consult: No MD Notified: Yes Date Notified: 08/12/21 Time Notified: 10:37 Method of Notification: Verbal Comments:: Left voicemail 08/12/21 18:45 Consult: Gastroenterology Routine Consulting Provider: [facility] Reason for Consult: gi bleed with severe anemia, low dose Eliquis, D/Mihir EMERGENT Consult: No Notified: Yes Date Notified: 08/12/21 Time Notified: 18:48 Method of Notification: Text 08/13/21 08:15 Consult: Cardiology Routine Consulting Provider: Florencio Ball Reason for Consult: Heart Block EMERGENT Consult: No Notified: Yes Date Notified: 08/13/21 Time Notified: 08:15 Method of Notification: Verbal 08/23/21 10:15 Consult: General Surgery Routine Consulting Provider: Delano Raphael Reason for Consult: tunneled HD catheter placement EMERGENT Consult: No Notified: Yes Date Notified: 08/23/21 Time Notified: 10:23 Method of Notification: Text Reason For Visit: COPD AND CHF EXA Diagnosis Discharge Diagnosis (1) GAYE (acute kidney injury): Status: Acute Code(s): N17.9 - Acute kidney failure, unspecified (2) Anemia: Status: Acute Code(s): D64.9 - Anemia, unspecified (3) Acute on chronic respiratory failure with hypoxia: Status: Chronic Code(s): J96.21 - Acute and chronic respiratory failure with hypoxia (4) Bacteremia: Status: Acute Code(s): R78.81 - Bacteremia Medications at Discharge Home Medications latanoprost 1 drp EACH EYE QHS 06/11/21 ipratropium-albuterol 3 ml INHALATION Q4HWA.RT PRN #0 ml 06/20/21 insulin lispro [Humalog KwikPen Insulin] 5 unit SUBCUT TIDAC #0 ml 07/16/21 menthol-zinc oxide [Calmoseptine] 1 applic TOPICAL BID #0 g 07/16/21 metoprolol tartrate 25 mg PO BID #0 tab 07/16/21 pantoprazole [Protonix] 40 mg PO DAILY 07/19/21 tramadol 50 mg PO DAILY 07/19/21 bumetanide 2 mg PO DAILY 08/10/21 levothyroxine [Synthroid] 25 mcg PO DAILY 08/10/21 potassium chloride 40 meq PO BID 08/10/21 cefazolin in dextrose 5 % 100 ml IV .MWF 30 Days ml 08/25/21 Hospital Course Operations None Procedures - (tunneled dialysis catheter insertion) Summary of Care Provided Minutes Spent on Discharge: 55 Hospital Course: Patient is a 70 y/o male with a PMH as outlined who was admitted via the ED on 08/10/2021 with a complaint of shortness of breath. He was found to be hypoxic in his usp and was 49% on room air. He had not been compliant with his nasal cannula oxygen. He also had associated chest tightness and wheezing. Patient has been following up with nephrology on outpatient basis on account of CKD stage IV. He had had a renal biopsy done recently. Chest x-ray showed pulmonary venous congestion. BNP was elevated. He was admitted and managed for acute on chronic heart failure with preserved ejection fraction. He was started on diuresis with Lasix. He had a known EF of 65%. He was also managed for GAYE on CKD stage IV. Nephrology was consulted. He was also noted to have MSSA bacteremia and was on IV cefazolin per ID recommendation. Orthopedic surgery was also consulted during admission for reported left shoulder and left knee pain and there was concern for septic left knee joint. Patient declined arthrocentesis initially. He had SHLOMO because of the MSSA bacteremia which was negative for any evidence of endocarditis. He was subsequently agreeable to the arthrocentesis and so had left shoulder and left knee arthrocentesis done by orthopedic surgery. Of note, gastroenterology was also consulted on account of anemia but he was not deemed a candidate for any scope due to his tenuous state. Of note, cardiology was consulted on account of bradycardia and he was noted to be in second-degree AV block. It was thought that patient would need a pacemaker but this should be held off until he had completed his antibiotic course for the MSSA bacteremia. It was determined that patient would need dialysis and so he had a tunneled dialysis catheter inserted by general surgery was commenced on dialysis. Patient remained stable and was discharged to his [facility] facility on 08/26/2021. He is follow-up with cardiology and gastroenterology as well as nephrology and ID. He is to be on IV cefazolin till 09/25/2021 and per ID, can be dosed with dialysis. His PICC line was therefore removed prior to discharge. Patient was seen and examined prior to discharge. He had no complaints and had an uneventful night. Review of systems otherwise negative. Labs and vitals reviewed. Medications reviewed and reconciled. Physical Exam Const alert, oriented x3 and no apparent distress General Appearance: cooperative and comfortable Exam Limitations: no limitations Nutritional Appearance: morbidly obese HEENT normocephalic, head/scalp atraumatic and moist oral mucous membranes Eyes PERRL, EOMs intact bilaterally and conjunctivae normal Neck no lymphadenopathy, supple and no JVD Resp normal respiratory effort, no retractions, no use of accessory muscles and clear to auscultation bilaterally Resp Narrative: diminished breath sounds bibasally, no wheezes or crackles. On 4L of oxygen by nasal canula Auscultation: Negative for crackles, rales, rhonchi or wheezes Cardio regular rate, regular rhythm, S1 normal heart sound, S2 normal heart sound and no murmurs GI normal to inspection, nondistended, normoactive bowel sounds, soft to palpation, non-tender and non-distended; Negative for hepatosplenomegaly GI Narrative: very obese abdomen Extremity normal to inspection, full ROM and no clubbing, cyanosis or edema Extremity Narrative: No knee tenderness with palpation General Extremity: edema Skin no rashes or lesions noted and no wounds Skin Narrative: tunneled dialysis catheter in place Neuro oriented x3, CN's II-XII intact bilaterally, moves all extremities, no focal motor deficits and no sensory deficits noted Sensorium / Orientation: awake and alert Psych affect normal Appearance: appropriate Weight / BMI Weight Weight: 373 lb 10.936 oz Body Mass Index (BMI) 55.7 ABG / Lab / Microbiology Data Result Diagrams: 08/26/21 04:41 08/26/21 04:41 Laboratory: Laboratory Results - last 24 hr 08/25/21 16:43: POC Glucose 140 H 08/25/21 21:10: POC Glucose 104 08/26/21 04:41: Sodium 133 L, Potassium 4.3, Chloride 97 L, Carbon Dioxide 27.0, Anion Gap 9, BUN 58 H, Creatinine 2.71 H, Estim Creat Clear Calc 24.05, Est GFR (MDRD) Af Amer 30 L, Est GFR (MDRD) Non-Af 25 L, BUN/Creatinine Ratio 21.4 H, Glucose 98, Calcium 8.6 08/26/21 04:41: WBC 10.9, RBC 2.63 L, Hgb 7.2 L, Hct 24.4 L, MCV 92.8, MCH 27.4, MCHC 29.5 L, RDW Std Deviation 69.3 H, RDW Coeff of Jory 20.3 H, Plt Count 226, MPV 9.3, Immature Gran % (Auto) 1.100 H, Neut % (Auto) 85.7 H, Lymph % (Auto) 4. 4 L, [place] % (Auto) 7.8, Eos % (Auto) 0.9, Baso % (Auto) 0.1, Absolute Neuts ( auto) 9.3 H, Absolute Lymphs (auto) 0.48 L, Nucleated RBC % 0, Differential Comment SCANNED 08/26/21 06:43: POC Glucose 245 H 08/26/21 11:31: POC Glucose 92 Microbiology: Microbiology 08/15/21 07:58 Blood Culture (Wb) - Other Blood Culture - Final No growth in 5 days. 08/14/21 06:50 Blood Culture (Wb) - Right Hand Blood Culture - Final No growth in 5 days. 08/12/21 10:16 Blood Culture (Wb) - Right Hand Blood Culture - Final Staphylococcus aureus 08/13/21 08:20 Blood Culture (Wb) - Other Blood Culture - Final Staphylococcus aureus 08/11/21 12:15 Blood Culture (Wb) - Right Hand Blood Culture - Final Staphylococcus aureus 08/10/21 18:54 Blood Culture (Wb) - Other Blood Culture - Final Staphylococcus aureus 08/10/21 15:29 Blood Culture (Wb) - Other Bacteria Detection (PCR) - Final Staphylococcus aureus 08/10/21 15:29 Blood Culture (Wb) - Other Blood Culture - Final Staphylococcus aureus 08/10/21 14:25 Urine Catheter - Franco Urine Culture - Final Escherichia coli Staphylococcus aureus 08/12/21 18:02 Stool Stool Occult Blood (DAMIAN) - Final Occult Blood Positive 08/12/21 10:00 Nasal Secretion SARS-CoV-2 Antigen (Rapid) - Final 08/10/21 13:45 Mucosa - Nasopharyngeal Respiratory Panel (PCR) - Final D/C Instructions Discharge Diet: Low fat / Low cholesterol Discharge Activity: Return to Normal Activity Weight Bearing Status: Weight bearing as tolerated Call your doctor if you observe: Fever of 101 or Higher, Shortness of breath, Dizziness, Swelling in the ankles, Chest pain and Increased palpitations (irregular heartbeat) Meaningful Use Info Meaningful Use Diagnoses (Choose all that apply): CHF AMI/Post PCI/Angioplasty Beta Scar at discharge?: No Reason Beta Scar not ordered:: Hypotension CHF SHELLI/ARB ordered at discharge?: No Reason SHELLI/ARB not ordered?: Worsening renal dysfunctn Documented LVEF (%): 65 Discharge Plan Admission Admit Date/Time: 08/10/21 12:44 Primary Reason for Your Visit: acute on chronic hypoxic respiratory failure, MSSA bactermia, heart failure Attending Provider: Kirti Tijerina Primary Care Provider: Maury Harley Consulting Providers: Mo Garza ; Ciarra Valencia ; Osmany Gallardo ; Festus Quarles ; Donte Serna ; Florencio Ball ; Festus Tony ; Delano Raphael ; Thang Basilio Discharge Orders/Prescriptions Prescriptions: New cefazolin in dextrose 5 % 2 gram/100 mL solution 100 ml IV .MWF 30 Days RF: 0 Continued latanoprost 0.005 % drops 1 drp EACH EYE QHS RF: 0 ipratropium-albuterol 0.5 mg-3 mg(2.5 mg base)/3 mL Solution For Nebulization 3 ml inhalation Q4HWA.RT PRN (Reason: SOB) Qty: 0 RF: 0 insulin lispro [Humalog KwikPen Insulin] 100 unit/mL Insulin Pen 5 unit subcut TIDAC Qty: 0 RF: 0 metoprolol tartrate 25 mg Tablet 25 mg PO BID Qty: 0 RF: 0 menthol-zinc oxide [Calmoseptine] 0.44-20.6 % Ointment 1 applic topical BID Qty: 0 RF: 0 tramadol 50 mg Tablet 50 mg PO DAILY RF: 0 pantoprazole [Protonix] 40 mg Tablet,Delayed Release (Dr/Ec) 40 mg PO DAILY RF: 0 levothyroxine [Synthroid] 25 mcg Tablet 25 mcg PO DAILY RF: 0 bumetanide 2 mg Tablet 2 mg PO DAILY RF: 0 potassium chloride 20 mEq Tablet Extended Release 40 meq PO BID RF: 0 Referrals / Follow Up: Maury Harley DO [Primary Care Provider] - Within 2 Weeks Florencio Ball MD [STAFF PHYSICIAN] - Within 1 Month Ciarra Valencia MD [STAFF PHYSICIAN] - Within 1 Week Osmany Gallardo MD [STAFF PHYSICIAN] - Within 2 Weeks Disposition Disposition (needs filled in before D/C Order can be placed): [facility] Charges/Coding Visit Charges Inpatient E&M: 92288 Disch Hosp
--- NOTE | 2021-08-26 15:10 | PCM.TXEXTCAR ---
Diet 08/24/21 13:36 Diet: Renal - ConsCHO - Mayco Cont Dietary Modifications:: Consistent Carbohydrate Sodium Restricted Is pt able to select menu?: No Fluid restriction:: 2000 mL Diet Comments: SUPERVISED FEEED How many daily calories?: 2000 calorie Routine Orders/Code Status Enema Type: Fleetz Enema Frequency: Daily PRN Suppository Type: Dulcolax 10mg Suppository Frequency: Daily PRN O2 Frequency: PRN Keep PO Greater than or Equal to (%): 90 Wound(s) coccyx bilat buttocks: Wound Type: Pressure Injury sacrum: Wound Type: Pressure Injury Dressing Change: Mepilex rt outer calf: Wound Type: Skin Tear Dressing Change: Mepilex intact CHEST: Wound Type: Surgical Incision Therapies Weight Bearing: Weight bearing as tolerated Occupational Therapy: Eval and Treat Speech Therapy: Eval and Treat Problem/Diagnosis (1) GAYE (acute kidney injury): Status: Acute (2) Anemia: Status: Acute (3) Acute on chronic respiratory failure with hypoxia: Status: Chronic (4) Bacteremia: Status: Acute Allergies/Procedures Done in Hospital Allergies No Known Allergies Allergy (Verified 06/11/21 15:09) Procedures: Dialysis and Transesophageal Echo Type of Care/Length of Stay Estimated LOS: More Than 30 Days Type of Care Needed: Skilled Rehab Potential: Fair Prognosis: Fair Additional Orders/Day of Discharge Day of Discharge: 08/26/21 Dietary and Speech Recommendations Dietitian Recommendations/Changes: Continue Renal/consistent carbohydrate diet with 2000 ml/day fluid restriction per renal. ONS only if PO fails at meals. Kevin as needed for pressure injury--will hold off currently as noted to be clean/dry without drainage and BUN/creat elevated. Discharge Plan Admission Admit Date/Time: 08/10/21 12:44 Primary Reason for Your Visit: acute on chronic hypoxic respiratory failure, MSSA bactermia, heart failure Attending Provider: Kirti Tijerina Primary Care Provider: Maury Harley Consulting Providers: Mo Garza ; Ciarra Valencia ; Osmany Gallardo ; Festus Quarles ; Donte Serna ; Florencio Ball ; Festus Tony ; Delano Raphael ; Thang Basilio Discharge Orders/Prescriptions Prescriptions: New cefazolin in dextrose 5 % 2 gram/100 mL solution 100 ml IV .MWF 30 Days RF: 0 Continued latanoprost 0.005 % drops 1 drp EACH EYE QHS RF: 0 ipratropium-albuterol 0.5 mg-3 mg(2.5 mg base)/3 mL Solution For Nebulization 3 ml inhalation Q4HWA.RT PRN (Reason: SOB) Qty: 0 RF: 0 insulin lispro [Humalog KwikPen Insulin] 100 unit/mL Insulin Pen 5 unit subcut TIDAC Qty: 0 RF: 0 metoprolol tartrate 25 mg Tablet 25 mg PO BID Qty: 0 RF: 0 menthol-zinc oxide [Calmoseptine] 0.44-20.6 % Ointment 1 applic topical BID Qty: 0 RF: 0 tramadol 50 mg Tablet 50 mg PO DAILY RF: 0 pantoprazole [Protonix] 40 mg Tablet,Delayed Release (Dr/Ec) 40 mg PO DAILY RF: 0 levothyroxine [Synthroid] 25 mcg Tablet 25 mcg PO DAILY RF: 0 bumetanide 2 mg Tablet 2 mg PO DAILY RF: 0 potassium chloride 20 mEq Tablet Extended Release 40 meq PO BID RF: 0 Referrals / Follow Up: Maury Harley DO [Primary Care Provider] - Within 2 Weeks Florencio Ball MD [STAFF PHYSICIAN] - Within 1 Month Ciarra Valencia MD [STAFF PHYSICIAN] - Within 1 Week Osmany Gallardo MD [STAFF PHYSICIAN] - Within 2 Weeks Disposition Disposition (needs filled in before D/C Order can be placed): Custodial Facility
--- NOTE | 2021-08-26 15:26 | CASEMGMT ---
MIMI called EMPLOYEE OPERATIONS EXAMINER Lucia with Nephrology and left her a voice mail letting her know patient will be leaving for [facility] today. Leslie Caldera FIBERGLASS CONTAINER WINDING OPERATOR LIANA
--- NOTE | 2021-08-26 15:54 | CASEMGMT ---
MIMI received a call from Ann at [facility] and she is not sure she will be able to get transport set up for patient to dialysis tomorrow as it is short notice. They are waiting on another company and she will get back to MIMI. Unfortunately if they are not able to get transport for tomorrow patient will have to stay in the hospital and get his dialysis tomorrow. He will then go after dialysis tomorrow. [facility] Leslie GAINES
--- NOTE | 2021-08-26 16:00 | PN.HOSP_ITS ---
Subjective Subjective Seen and examined. He had no complaints today. He had an uneventful night. He is due for discharge to long-term facility today. Review of systems otherwise negative. He has remained hemodynamically stable. Objective Data Objective Data Vital Signs: Vital Signs Temp Pulse Resp BP Pulse Ox 97.3 F L 56 L 18 98/51 L 96 08/26/21 15:13 08/26/21 15:13 08/26/21 15:13 08/26/21 15:13 08/26/21 15:13 Oxygen Flow Rate (L/min) 4 Oxygen Delivery Method Nasal Cannula Weight: 373 lb 10.936 oz Body Mass Index (BMI) 55.7 Intake & Output: Intake and Output for Last 24 Hours 08/24/21 08/25/21 08/26/21 23:59 23:59 23:59 Intake Total 50 / 50 580 / 580 460 / 460 Output Total 1650 / 1650 2150 / 2150 100 / 100 Balance -1600 / -1600 -1570 / -1570 360 / 360 Lab / Micro Data Result Diagrams: 08/26/21 04:41 08/26/21 04:41 Labs: Laboratory Results - last 24 hr 08/25/21 16:43: POC Glucose 140 H 08/25/21 21:10: POC Glucose 104 08/26/21 04:41: Sodium 133 L, Potassium 4.3, Chloride 97 L, Carbon Dioxide 27.0, Anion Gap 9, BUN 58 H, Creatinine 2.71 H, Estim Creat Clear Calc 24.05, Est GFR (MDRD) Af Amer 30 L, Est GFR (MDRD) Non-Af 25 L, BUN/Creatinine Ratio 21.4 H, Glucose 98, Calcium 8.6 08/26/21 04:41: WBC 10.9, RBC 2.63 L, Hgb 7.2 L, Hct 24.4 L, MCV 92.8, MCH 27.4, MCHC 29.5 L, RDW Std Deviation 69.3 H, RDW Coeff of Jory 20.3 H, Plt Count 226, MPV 9.3, Immature Gran % (Auto) 1.100 H, Neut % (Auto) 85.7 H, Lymph % (Auto) 4.4 L, [place] % (Auto) 7.8, Eos % (Auto) 0.9, Baso % (Auto) 0.1, Absolute Neuts (auto) 9.3 H, Absolute Lymphs (auto) 0.48 L, Nucleated RBC % 0, Differential Comment SCANNED 08/26/21 06:43: POC Glucose 245 H 08/26/21 11:31: POC Glucose 92 Micro: Microbiology 08/15/21 07:58 Blood Culture (Wb) - Other Blood Culture - Final No growth in 5 days. 08/14/21 06:50 Blood Culture (Wb) - Right Hand Blood Culture - Final No growth in 5 days. 08/12/21 10:16 Blood Culture (Wb) - Right Hand Blood Culture - Final Staphylococcus aureus 08/13/21 08:20 Blood Culture (Wb) - Other Blood Culture - Final Staphylococcus aureus 08/11/21 12:15 Blood Culture (Wb) - Right Hand Blood Culture - Final Staphylococcus aureus 08/10/21 18:54 Blood Culture (Wb) - Other Blood Culture - Final Staphylococcus aureus 08/10/21 15:29 Blood Culture (Wb) - Other Bacteria Detection (PCR) - Final Staphylococcus aureus 08/10/21 15:29 Blood Culture (Wb) - Other Blood Culture - Final Staphylococcus aureus 08/10/21 14:25 Urine Catheter - Franco Urine Culture - Final Escherichia coli Staphylococcus aureus 08/12/21 18:02 Stool Stool Occult Blood (DAMIAN) - Final Occult Blood Positive 08/12/21 10:00 Nasal Secretion SARS-CoV-2 Antigen (Rapid) - Final 08/10/21 13:45 Mucosa - Nasopharyngeal Respiratory Panel (PCR) - Final Physical Exam Const alert, oriented x3 and no apparent distress General Appearance: cooperative and comfortable Exam Limitations: no limitations Nutritional Appearance: morbidly obese HEENT normocephalic, head/scalp atraumatic and moist oral mucous membranes Head and Scalp: normocephalic Eyes PERRL, EOMs intact bilaterally and conjunctivae normal Neck no lymphadenopathy, supple and no JVD Resp normal respiratory effort, no retractions, no use of accessory muscles and clear to auscultation bilaterally Resp Narrative: diminished breath sounds bibasally, no wheezes or crackles. On 4L of oxygen by nasal canula Auscultation: Negative for crackles, rales, rhonchi or wheezes Cardio regular rate, regular rhythm, S1 normal heart sound, S2 normal heart sound and no murmurs GI normal to inspection, nondistended, normoactive bowel sounds, soft to palpation, non-tender and non-distended; Negative for hepatosplenomegaly GI Narrative: very obese abdomen Extremity normal to inspection, full ROM and no clubbing, cyanosis or edema General Extremity: edema Skin no rashes or lesions noted and no wounds Skin Narrative: tunneled dialysis catheter in place Neuro oriented x3, CN's II-XII intact bilaterally, moves all extremities, no focal motor deficits and no sensory deficits noted Sensorium / Orientation: awake and alert Psych affect normal Appearance: appropriate Assessment & Plan Assessment/Plan (1) GAYE (acute kidney injury): (2) Anemia: (3) Acute on chronic respiratory failure with hypoxia: (4) Bacteremia: PLAN: #Acute on chronic hypoxic respiratory failure due to COPD and CHF exacerbation * Was on 4 L at time of review. * on IV lasix. * Also uses BiPAP nightly. * Breathing treatments of bronchodilators. * Titrate oxygen to maintain sats above 90%.\ * Has known EF of 65% * #MSSA bacteremia * Blood cultures x2 are positive for MSSA. * Had SHLOMO which was negative for any vegetation. * ID on board. On IV cefazolin. To be on IV cefazolin for total of 6 weeks till September 25, 2021 * #Second-degree AV block * Complicated by episodes of V. tach. * Cardiology on board. Will likely need a pacemaker placed after MSSA bactere concha has resolved. * remains bradycardic, with HR in the 50s. * #Hypokalemia: Resolved #GAYE on CKD stage IV * Nephrology on board. Appreciate recs. * Had tunneled dialysis catheter inserted, and has had 2 sessions of dialysis * #Chronic anemia: * Hb is 7.2 today. transfuse if hb <7 * Stool for occult blood was positive on 07/14/2021. * GI consulted and want to hold off on any EGD for now due to his complicated medical history. * To follow-up on outpatient basis for EGD as needed. * #DVT: Not on anticoagulation due to anemia and positive occult blood in stool #Debility and failure to thrive: PT OT on board. For placement Due to prophylaxis: SCDs Disposition: awaiting placement Charges/Coding Visit Charges Inpatient E&M: 84092 Subs Hosp L2
--- NOTE | 2021-08-26 16:15 | CASEMGMT ---
MIMI received a call from Ann at [facility] and she said they cannot get transportation for patient to dialysis tomorrow. MIMI asked Ann if this is going to be a problem for future dialysis. Ann said yes and they will not be able to transport patient. MIMI called aTmmy with [facility] and she did not cancel transport for patient. Tammy said patient can still come today. MIMI told her SW will have patient picked up at 6p. MIMI arranged for patient to get picked up at 6p via cot. MIMI faxed orders, transport time, and COVID test to [facility]. MIMI notified RN, physician, legal secretary receptionist, patient, and patient's niece Alison. Alison was frustrated as [facility] is further away and when he needs machine long goods helper it is too expensive. MIMI told her right now he will go skilled and that will give her time to look into other facilities and give other facilities more time to work on transport. MIMI also suggested since they live in [place] to look at facilities in [place]. Alison was thankful for all of the assistance. Plan: d/c to [facility] under skilled level of care. [facility] via cot. Leslie GAINES
[2021-08-26 17:01] LABS: Bedside Glucose 116 mg/dL (74-106)
--- NOTE | 2021-08-26 17:13 | NURSING ---
Report called to nurse Hope for pt transfer to [facility].
== END 2021-08-26 19:13 | disposition skilled nursing facility (03) | DRG 291 ==
PROVIDERS: Family Medicine; Internal Medicine; Nurse Practitioner Adult Health; Surgery; Admitting Provider Internal Medicine; PCP Family Medicine; Visit Provider Student in an Organized Health Care Education/Training Program
PROC: 0JH63XZ Insertion of Tunneled Vascular Access Device into Chest Subcutaneous Tissue and Fascia, Percutaneous Approach (ICD-10-PCS; principal; 2021-08-24 10:15)
DX: I13.0 Hypertensive heart and chronic kidney disease with heart failure and stage 1 through stage 4 chronic kidney disease, or unspecified chronic kidney disease (principal); J96.21 Acute and chronic respiratory failure with hypoxia; I50.33 Acute on chronic diastolic (congestive) heart failure; M00.862 Arthritis due to other bacteria, left knee; R78.81 Bacteremia; E66.2 Morbid (severe) obesity with alveolar hypoventilation; N17.9 Acute kidney failure, unspecified; N18.4 Chronic kidney disease, stage 4 (severe); J44.1 Chronic obstructive pulmonary disease with (acute) exacerbation; Z68.43 Body mass index [BMI] 50.0-59.9, adult; D63.1 Anemia in chronic kidney disease; I44.1 Atrioventricular block, second degree; G25.3 Myoclonus; E10.22 Type 1 diabetes mellitus with diabetic chronic kidney disease; J84.10 Pulmonary fibrosis, unspecified; L89.159 Pressure ulcer of sacral region, unspecified stage; Z79.4 Long term (current) use of insulin; M17.12 Unilateral primary osteoarthritis, left knee; E87.6 Hypokalemia; E87.5 Hyperkalemia; B95.61 Methicillin susceptible Staphylococcus aureus infection as the cause of diseases classified elsewhere; R62.7 Adult failure to thrive; R53.81 Other malaise; Z66 Do not resuscitate; N08 Glomerular disorders in diseases classified elsewhere; Z28.310 Unvaccinated for COVID-19; Z28.9 Immunization not carried out for unspecified reason; Z86.718 Personal history of other venous thrombosis and embolism
CPT/HCPCS: 36415; 36569; 36600; 71045; 73030; 73560; 77001; 78582; 80048; 80061; 80069; 82274; 82607; 82728; 82746; 82803; 82962; 83540; 83550; 83735; 84100; 84443; 84484; 85014; 85018; 85025; 85379; 87040; 87077; 87086; 87088; 87149; 87186; 87340; 87426; 87633; 87811; 90937; 93005; 93312; 93320; 93325; 93970; 94002; 94003; 94640; 94660; 94762; 97110; 97162; 97166; 97530; 97535; 97802; 97803; A9540; A9567; J2997; J7030; J7050; A4216; C1750; G0257; J1940; J2405

== ENCOUNTER 2021-08-27 07:10 | Outpatient (REF) | payer SELFPAY ==
[2021-08-27 08:58] LABS: Hematocrit 23.7 % (40-54); Mean Corp Hgb Conc 29.5 g/dL (32-36); Mean Corpuscular Hgb 27.1 pg (27.0-32.0); Mean Corpuscular Volume 91.9 fL (80-94); Mean Platelet Vol. 9.3 fl (6.2-12.0); POSITIVE MORPHOLOGY YES; Platelet Count 244 K/mm3 (150-450); RBC Distribution Width CV 20.1 % (11.6-14.6); RBC Distribution Width SD 67.3 fl (35.1-43.9); Red Blood Count 2.58 M/mm3 (4.6-6.2); White Blood Count 11.5 K/mm3 (4.4-11.0)
[2021-08-27 08:59] LABS: Scan Indicated on CBC? Y/N YES- FLAGS NOTED
[2021-08-27 09:24] LABS: Vitamin B12 774 pg/mL (211-911)
[2021-08-27 09:29] LABS: Anion Gap 10 (5-15); BUN 69 mg/dL (7-18); BUN/Creat Ratio 20.2 RATIO (10-20); Calcium,Total 9.1 mg/dL (8.5-10.1); Chloride 96 mmol/L (98-107); Creatinine, Serum 3.42 mg/dL (0.70-1.30); EST Glomerular Filtration Rate 19 mL/min (>60); Est Glom Filt Rate - Afr Amer 23 mL/min (>60); Glucose 97 mg/dL (74-106); Potassium 4.8 mmol/L (3.5-5.1); Sodium Level 132 mmol/L (136-145); Thyroid Stim Hormone (TSH) 9.58 uIU/mL (0.358-3.74)
[2021-08-27 09:51] LABS: Hemoglobin A1c < 3.8 % (3.8-5.6)
== END 2021-08-27 23:59 | disposition home or self-care (01) ==
LOC: OLS.SW1020 07:10
PROVIDERS: PCP Family Medicine; Visit Provider Internal Medicine
DX: E11.9 Type 2 diabetes mellitus without complications (principal); J96.21 Acute and chronic respiratory failure with hypoxia; E03.9 Hypothyroidism, unspecified; E87.6 Hypokalemia
CPT/HCPCS: 36415; 80048; 82607; 83036; 84443; 85027

== ENCOUNTER 2021-08-27 14:10 | Emergency (ER) | payer MEDICARE, OTHER, SELFPAY ==
[2021-08-27 14:13] VITALS: BP 113/69; PULSE 49; RESP 12; TEMP 36.1; O2SAT 99; BMI 60.5
--- NOTE | 2021-08-27 14:55 | CM.ED ---
Social Work Note MIMI updated that pt came from [facility]. Pt was brought to [facility] because [facility] was not able to get transportation for pt to go to dialysis today. MIMI placed a call to Tammy at [facility]. Tammy states she had transportation arranged today via wheelchair van for pt but when they tried to get pt into wheelchair van pt was in excruciating pain and was not able to be transported via wheelchair van. Tammy states they had no way to safely transport pt to [facility]. Tammy states she has cot transport arranged for Monday for pt to get to dialysis. MIMI asked Tammy why pt couldn't get on site dialysis since [facility] does on site dialysis. Tammy states to get on site dialysis, pt's have to be in end stage renal disease and pt is acute stage renal. MIMI updated that pt does not need to be admitted, pt doesn't need dialysis today and can get dialysis tomorrow. MIMI placed a call to back to Tammy at [facility] and informed her that there is no medical reason to admit pt, and that pt can get dialysis tomorrow. MIMI asked Tammy if transportation can be arranged for pt to get dialysis tomorrow. Tammy states she will need to check with their transportation and then call this worker back. MIMI waiting for call back from Tammy. Emily Lewis BRICK LOADER, [employer]OWER [employer]
--- NOTE | 2021-08-27 15:08 | NURSING ---
Attempted to call [facility] to let them know pt coming back. No answer.
--- NOTE | 2021-08-27 15:08 | EX.ED.DYSGE1 ---
HPI History of Present Illness Chief Complaint: Weakness Narrative Narrative: This is a 70-year-old male presenting from [facility] [place] where he was just discharged to yesterday from [facility]. Patient has been scheduled to have dialysis Monday, Monday, Monday. Apparently the nursing staff at [facility] [place] was trying to schedule him for dialysis today but ordered the wrong type of transport for him. They did call the emergency room to discuss this. The patient was not reported to be hypoxic or having any new symptoms. The patient himself states that nothing is new except for needing dialysis. [facility] Medical History 2019-nCoV vaccination declined Cellulitis Debility DVT (deep venous thrombosis) Fall HTN (hypertension) Leukocytosis Obesity Home Medications latanoprost 1 drp EACH EYE QHS 06/11/21 [History Last Taken 08/09/21 22:00] ipratropium-albuterol 3 ml INHALATION Q4HWA.RT PRN #0 ml 06/20/21 [Rx Last Taken 08/10/21 06:30] insulin lispro [Humalog KwikPen Insulin] 5 unit SUBCUT TIDAC #0 ml 07/16/21 [Rx Last Taken Unknown] menthol-zinc oxide [Calmoseptine] 1 applic TOPICAL BID #0 g 07/16/21 [Rx Last Taken Unknown] metoprolol tartrate 25 mg PO BID #0 tab 07/16/21 [Rx Last Taken Unknown] pantoprazole [Protonix] 40 mg PO DAILY 07/19/21 [History Last Taken Unknown] tramadol 50 mg PO DAILY 07/19/21 [History Last Taken Unknown] bumetanide 2 mg PO DAILY 08/10/21 [History Last Taken Unknown] levothyroxine [Synthroid] 25 mcg PO DAILY 08/10/21 [History Last Taken Unknown] potassium chloride 40 meq PO BID 08/10/21 [History Last Taken Unknown] cefazolin in dextrose 5 % 100 ml IV .MWF 30 Days ml 08/25/21 [Rx Last Taken Unknown] Allergy/AdvReac Type Severity Reaction Status Date / Time No Known Allergies Allergy Verified 08/27/21 14:13 Surgical History History of left shoulder replacement Social History household members: none housing: [facility] current occupational status: disabled Smoking Status: Never smoker alcohol intake: never substance use type: does not use ROS ROS ED Constitutional Constitutional ED: Denies fever(s) or subjective Eyes Eyes: Denies blurry vision or diplopia ENT ENT ED: Denies rhinorrhea or sore throat Cardiovascular Cardiovascular: Denies chest pain or palpitations Respiratory/Chest Respiratory/Chest: Denies cough or dyspnea Gastrointestinal Gastrointestinal: Denies abdominal pain, nausea or vomiting Genitourinary Genitourinary ED: Denies dysuria or hematuria Musculoskeletal Musculoskeletal: Denies arthralgias or myalgias Integumentary Denies abscess or rash Neurologic Neurologic: Denies headache(s) or weakness Psychiatric Psychiatric: Denies anxiety or depression EXAM Physical Exam Const Vital Signs: 08/27/21 14:13 Temperature 97 F L Temperature Source Temporal Pulse Rate 49 L Respiratory Rate 12 Blood Pressure 113/69 Blood Pressure Mean 83 Pulse Ox 99 Oxygen Delivery Method Room Air Positive obese General Appearance ED: NAD Nutritional Appearance: obese HEENT Reports moist mucous membranes Negative for trauma Eyes PERRL and EOMs intact bilaterally Chest Wall Chest Narrative: Dialysis catheter in right chest wall. No surrounding erythema, swelling. Equal symmetric breath sounds or chest wall rise. Resp normal respiratory effort Cardio regular rate and regular rhythm GI normal to inspection, nondistended, normoactive bowel sounds Neuro oriented x3 Sensorium / Orientation: alert Psych mental status grossly normal Skin no rashes or lesions noted MDM MDM MDM Narrative Medical decision making narrative: Patient presenting from [facility] [place] for dialysis. Social work was involved and apparently since they ordered the wrong bed they sent him to the emergency room for dialysis. It was apparently conveyed to them that we do not do dialysis in the emergency room. They still felt he needed to send him even though his vital signs are normal and he has no complaints. Apparently, there is an issue because he does not have end-stage renal disease getting hemodialysis today. I did have social work speak to [facility] [place] to try to have the patient set up for dialysis tomorrow because this appears to be nonemergent and the patient has normal vital signs without any complaints. I do not believe he needs to be admitted to the hospital simply for dialysis and I cannot have dialysis done in the emergency room. Since his nonemergent I will discharge him back. He was given return precautions. Impression: 1. History of renal failure on dialysis Discharge Plan Triage Chief Complaint: Weakness ED Provider: Braydon Chiang Dx/Rx/DC Orders Instructions: ED Chronic Kidney Disease (CKD) Prescriptions: No Action latanoprost 0.005 % drops 1 drp EACH EYE QHS RF: 0 ipratropium-albuterol 0.5 mg-3 mg(2.5 mg base)/3 mL Solution For Nebulization 3 ml inhalation Q4HWA.RT PRN (Reason: SOB) Qty: 0 RF: 0 insulin lispro [Humalog KwikPen Insulin] 100 unit/mL Insulin Pen 5 unit subcut TIDAC Qty: 0 RF: 0 metoprolol tartrate 25 mg Tablet 25 mg PO BID Qty: 0 RF: 0 menthol-zinc oxide [Calmoseptine] 0.44-20.6 % Ointment 1 applic topical BID Qty: 0 RF: 0 tramadol 50 mg Tablet 50 mg PO DAILY RF: 0 pantoprazole [Protonix] 40 mg Tablet,Delayed Release (Dr/Ec) 40 mg PO DAILY RF: 0 levothyroxine [Synthroid] 25 mcg Tablet 25 mcg PO DAILY RF: 0 bumetanide 2 mg Tablet 2 mg PO DAILY RF: 0 potassium chloride 20 mEq Tablet Extended Release 40 meq PO BID RF: 0 cefazolin in dextrose 5 % 2 gram/100 mL solution 100 ml IV .MWF 30 Days RF: 0 Primary Care Provider: Maury Harley Referrals: Maury Harley DO [Primary Care Provider] - Disposition Disposition: Home, Self Care
--- NOTE | 2021-08-27 15:43 | CM.ED ---
Social Work Note MIMI received message from Tammy at [facility] stating they tried [facility] and [facility] and neither of them have openings tomorrow for transportation and they have no one else that can transport pt via cot. MIMI placed a call to Tammy ([phone]) and informed Tammy to try [facility] or [facility]. Tammy states she will need to check with their transportation as she is not sure they are in contract and then call this worker back. Emily Lewis SPRAY BOOTH OPERATOR, HEEL SEAT LASTER
--- NOTE | 2021-08-27 16:30 | CM.ED ---
Social Work Note MIMI placed a call to Tammy at [facility] and asked if [facility] would have any open chair times available tomorrow. Tammy states Serjio at [facility] would have time for emergent case for pt. MIMI asked Tammy if this worker call call [facility] to inquire about transportation and Tammy states that is ok. MIMI placed a call to [facility] and spoke with Bobbi. MIMI explained that it would be a one time transport from SNF to dialysis. Bobbi states that [facility] could provide transport but the earliest they could do it would be afternoon. MIMI placed a call to back to Tammy at [facility] and updated her that this worker spoke with Bobbi at [facility] who stated they could transport from SNF to [facility] tomorrow in the afternoon, asked if Tammy could call [facility] to confirm. Tammy states she will call [facility] and [facility] and then call this worker back. MIMI waiting for call back from Tammy at [facility]. Emily Lewis LOCATE TECHNICIAN, LAB ASST
--- NOTE | 2021-08-27 19:02 | CM.ED ---
Social Work Note MIMI received message from Tammy at [facility] stating she spoke with Amilcar at [facility] and since they are not contracted with [facility], [facility] will not transport pt. MIMI updated that pt was discharged back to [facility]. MIMI placed a call to Tammy and updated her that pt was discharged back to [facility]. Emily Lewis STAFF RADIOGRAPHER, FUR REPAIRER
== END 2021-08-27 16:31 | disposition home or self-care (01) ==
LOC: ED 15:40
PROVIDERS: Emergency Provider Student in an Organized Health Care Education/Training Program; PCP Family Medicine; Visit Provider Student in an Organized Health Care Education/Training Program
DX: N19 Unspecified kidney failure (principal); Z99.2 Dependence on renal dialysis; Z79.4 Long term (current) use of insulin; I10 Essential (primary) hypertension; Z79.899 Other long term (current) drug therapy; Z96.612 Presence of left artificial shoulder joint
CPT/HCPCS: 99284

== ENCOUNTER 2021-08-27 21:15 | Emergency (ER) | payer MEDICARE, OTHER, SELFPAY ==
[2021-08-27 21:16] VITALS: BP 139/112; PULSE 45; RESP 20; TEMP 37.1; O2SAT 95; BMI 56.7
[2021-08-27 21:25] VITALS: PULSE 46; O2SAT 98
--- NOTE | 2021-08-27 22:14 | EDS_ITS ---
[facility] <Dr. Segun Long MD - Last Filed: 08/28/21 02:06> HPI - Fall History of Present Illness Chief Complaint: Fall Informant: patient and family Occured/Mechanism Occurred: Today and Hours Usually ambulates: Walker Pain/Injury Pain Location: lower extremity Current Severity: Mild Maximum Severity: Mild Associated Symptoms Associated Symptoms: Negative for Parasthesias, Weakness, Loss of function, Inability to ambulate, Loss of consciousness and Amnesia Narrative Narrative: 70-year-old male history of end-stage renal disease, dialysis, CHF, diabetes. Patient has basically been hospitalized at multiple locations primarily at this facility but also other hospitals the last 3 months. Today was his first day in extended care facility and he try to get up and walk he normally needs a lot of assistance and even a Vimal lift and he fell. He has a laceration on his left lower leg. A skin tear to his right elbow. A minor skin tear in his left elbow. He also hit his head. He is reportedly not on blood thinners. Had no LOC. Prior similar symptoms: Yes Recent Illness/Hospitalization: Yes [facility] <Dr. Segun Long MD - Last Filed: 08/28/21 02:06> [facility] Medical History 2019-nCoV vaccination declined Cellulitis Debility DVT (deep venous thrombosis) Fall HTN (hypertension) Leukocytosis Obesity Home Medications latanoprost 1 drp EACH EYE QHS 06/11/21 [History Last Taken 08/26/21] ipratropium-albuterol 3 ml INHALATION Q4HWA.RT PRN #0 ml 06/20/21 [Rx Last Taken 08/10/21 06:30] menthol-zinc oxide [Calmoseptine] 1 applic TOPICAL BID #0 g 07/16/21 [Rx Last Taken Unknown] pantoprazole [Protonix] 40 mg PO DAILY 07/19/21 [History Last Taken 08/27/21] tramadol 50 mg PO DAILY 07/19/21 [History Last Taken Unknown] bumetanide 2 mg PO DAILY 08/10/21 [History Last Taken 08/27/21] levothyroxine [Synthroid] 25 mcg PO DAILY 08/10/21 [History Last Taken Unknown] potassium chloride 40 meq PO BID 08/10/21 [History Last Taken 08/27/21] cefazolin in dextrose 5 % 100 ml IV .MWF 30 Days ml 08/25/21 [Rx Last Taken Unknown] insulin lispro [Humalog KwikPen Insulin] 5 unit SUBCUT TIDAC 08/27/21 [History Last Taken 08/27/21] metoprolol tartrate 25 mg PO BID 08/27/21 [History Last Taken 08/27/21] Allergy/AdvReac Type Severity Reaction Status Date / Time No Known Allergies Allergy Verified 08/27/21 14:13 Surgical History History of left shoulder replacement Social History household members: none housing: assisted current occupational status: disabled Smoking Status: Never smoker alcohol intake: never substance use type: does not use ROS <Dr. Segun Long MD - Last Filed: 08/28/21 02:06> ROS ED ROS Narrative Generalized weakness. Denies recent illness other than his multiple hospitalizations. Review of Systems ROS Unobtainable: Denies due to encephalopathy Constitutional Constitutional ED: Denies fever(s) Eyes Eyes: Denies change in vision ENT ENT ED: Denies ear pain Cardiovascular Cardiovascular: Denies chest pain Respiratory/Chest Respiratory/Chest: Denies dyspnea Gastrointestinal Gastrointestinal: Denies abdominal pain Genitourinary Genitourinary ED: Denies dysuria Musculoskeletal Musculoskeletal: Denies myalgias Integumentary Denies rash Neurologic Neurologic: Denies headache(s) Psychiatric Psychiatric: Denies depression Endocrine Endocrinology: Denies polyuria Hematologic/Lymphatic Hematologic/Lymphatic: Denies easy bruising Allergic/Immunologic Allergic/Immunologic ED: Denies urticaria EXAM <Dr. Segun Long MD - Last Filed: 08/28/21 02:06> Physical Exam Narrative Exam Narrative: Six 10-year-old male lying in bed. Unable. He does not look septic or toxic. He is on 4 L nasal cannula O2 and his pulse ox is 95%. H EENT exam is a contusion above his left eyebrow at the size of a nickel. Pupils round reactive light. Scalp is nontender. C-spine is nontender. Lungs clear diminished in both bases. Heart regular rhythm rate about 50. Abdomen is morbidly obese but soft nontender. Pelvic girdle intact. There is no shortening or rotation to either hip. His left lower leg has an L-shaped laceration that goes deep into the subcu tissue. There is chronic venous stasis changes in both lower extremities. Dorsi plantarflexion is intact. Her right elbow has a skin tear. The left has a minor skin tear. There is no bony deformity. Is normal medical terminologist strength. Neurologically is awake and alert. He is answering questions and following commands. Const Vital Signs: 08/27/21 21:16 08/27/21 21:22 08/27/21 21:25 Temperature 98.7 F Temperature Source Temporal Pulse Rate 45 L 46 L Respiratory Rate 20 H Respiratory Effort Normal Non-Labored Respiratory Depth Normal Respiratory Pattern Normal Blood Pressure 139/112 H Blood Pressure Mean 121 Pulse Ox 95 98 Oxygen Delivery Method Nasal Cannula Nasal Cannula Oxygen Flow Rate (L/min) 4 4 08/27/21 23:33 Temperature Temperature Source Pulse Rate 51 L Respiratory Rate 20 H Respiratory Effort Respiratory Depth Respiratory Pattern Blood Pressure 99/59 L Blood Pressure Mean 72 Pulse Ox 97 Oxygen Delivery Method Room Air Oxygen Flow Rate (L/min) Positive well nourished, well developed and obese; Negative for cachectic, contractures or unkempt General Appearance ED: well developed and NAD; Negative for unkempt, cachectic or contractures Nutritional Appearance: obese; Negative for cachectic HEENT Reports normocephalic trauma; Negative for atraumatic or tenderness Eyes PERRL and EOMs intact bilaterally Neck full ROM, no lymphadenopathy and supple General: Negative for tenderness Chest Wall inspection of chest normal and palpation of chest normal Resp normal respiratory effort, no retractions and clear to auscultation bilaterally Auscultation: diminished lung sounds; Negative for rales, rhonchi or wheezes Cardio regular rhythm, S1 normal heart sound, S2 normal heart sound and no murmurs; Negative for regular rate Rate: bradycardia GI non-tender, non-distended and no masses Auscultation: normoactive bowel sounds Palpation: soft Back/Spine General Back: Negative for CVA tenderness Cervical Spine: cervical spine tenderness Extremity Negative for normal to inspection Extremity Narrative: Skin tear right elbow. Minor skin tear left elbow. Laceration left lower leg. No bony tenderness or deformities. Neuro oriented x3 and no focal motor deficits Sensorium / Orientation: alert, oriented to person, oriented to place and oriented to time Psych mental status grossly normal and thought process normal Appearance: Negative for unkempt Skin Lesions: no lesions and No lesion noted Rashes: no rashes Trauma: laceration; Negative for abrasion <Dr. Thang Murguia DO - Last Filed: 08/28/21 01:59> Physical Exam Const Vital Signs: 08/27/21 21:16 08/27/21 21:22 08/27/21 21:25 Temperature 98.7 F Temperature Source Temporal Pulse Rate 45 L 46 L Respiratory Rate 20 H Respiratory Effort Normal Non-Labored Respiratory Depth Normal Respiratory Pattern Normal Blood Pressure 139/112 H Blood Pressure Mean 121 Pulse Ox 95 98 Oxygen Delivery Method Nasal Cannula Nasal Cannula Oxygen Flow Rate (L/min) 4 4 08/27/21 23:33 Temperature Temperature Source Pulse Rate 51 L Respiratory Rate 20 H Respiratory Effort Respiratory Depth Respiratory Pattern Blood Pressure 99/59 L Blood Pressure Mean 72 Pulse Ox 97 Oxygen Delivery Method Room Air Oxygen Flow Rate (L/min) MDM <Dr. Segun Long MD - Last Filed: 08/28/21 02:06> [facility] MDM Narrative Medical decision making narrative: 70-year-old chronically ill gentleman with end-stage renal disease and diabetes. Fell today at the assisted. Screening labs are being obtained. I will need to try to suture repair of the left lower leg if possible. Repeat exam patient is doing well at 2:04 AM. One of the other ER physicians did suture repair of his left lower leg laceration from the fall. Patient be discharged back to the extended care facility. Lab Data Attestation: I reviewed the patient's lab results. Lab results narrative: CBC shows white count 12.1. H&H 7.5 and 25 is history anemia because of his end-stage renal disease. Platelets 271. Electrolytes show sodium 133. Gap of 8 BUN of 71 creatinine 3.69. Glucose 111. Labs: Laboratory Results - last 24 hr 08/27/21 08/27/21 22:30 22:30 WBC 12.1 H RBC 2.72 L Hgb 7.5 L Hct 25.1 L MCV 92.3 MCH 27.6 MCHC 29.9 L RDW Std Deviation 67.6 H RDW Coeff of Jory 20.2 H Plt Count 271 MPV 9.2 Immature Gran % (Auto) 0.800 Neut % (Auto) 91.4 H Lymph % (Auto) 2.6 L [place] % (Auto) 4.8 Eos % (Auto) 0.3 Baso % (Auto) 0.1 Absolute Neuts (auto) 11.0 H Absolute Lymphs (auto) 0.31 L Nucleated RBC % 0 Differential Comment SCANNED Sodium 133 L Potassium 5.1 Chloride 98 Carbon Dioxide 27.0 Anion Gap 8 BUN 71 H Creatinine 3.69 H Estim Creat Clear Calc 17.05 Est GFR (MDRD) Af Amer 21 L Est GFR (MDRD) Non-Af 17 L BUN/Creatinine Ratio 19.2 Glucose 111 H Calcium 9.2 <Dr. Thang Murguia, DO - Last Filed: 08/28/21 01:59> MDM MDM Narrative Medical decision making narrative: The wound was cleaned and irrigated with copious amounts normal saline. The wound was anesthetized 1% plain lidocaine locally. The wound was closed with 2 horizontal mattress sutures and 5 simple interrupted #4-0 nylon sutures under sterile technique. Patient tolerated the p rocedure well. Bacitracin dressing was applied. Patient was instructed to keep the wound clean and dry. Patient was instructed to have the wound rechecked in 7 days for possible suture removal. Patient understood and was agreeable with the plan. All questions were answered. Lab Data Labs: Laboratory Results - last 24 hr 08/27/21 08/27/21 22:30 22:30 WBC 12.1 H RBC 2.72 L Hgb 7.5 L Hct 25.1 L MCV 92.3 MCH 27.6 MCHC 29.9 L RDW Std Deviation 67.6 H RDW Coeff of Jory 20.2 H Plt Count 271 MPV 9.2 Immature Gran % (Auto) 0.800 Neut % (Auto) 91.4 H Lymph % (Auto) 2.6 L [place] % (Auto) 4.8 Eos % (Auto) 0.3 Baso % (Auto) 0.1 Absolute Neuts (auto) 11.0 H Absolute Lymphs (auto) 0.31 L Nucleated RBC % 0 Differential Comment SCANNED Sodium 133 L Potassium 5.1 Chloride 98 Carbon Dioxide 27.0 Anion Gap 8 BUN 71 H Creatinine 3.69 H Estim Creat Clear Calc 17.05 Est GFR (MDRD) Af Amer 21 L Est GFR (MDRD) Non-Af 17 L BUN/Creatinine Ratio 19.2 Glucose 111 H Calcium 9.2 <Dr. Thang Murguia DO - Last Filed: 08/28/21 01:59> Lacerations Left leg laceration: Length: 2.76 in Depth: Sub Q Shape: Flap Prep: Sterile Conditions and Chlorhexadine Laceration repair: Irrigated, Lidocaine, Local, Skin sutures and Wound explored Irrigated (ml): 100 Number of Sutures/[place]: 7 Suture Information: Ethilon, Simple (5), Horizontal (2), Mattress and 4-0 Discharge Plan Triage Chief Complaint: Fall ED Provider: Segun Long Dx/Rx/DC Orders Clinical Impression: Fall, Laceration of leg, History of end stage renal disease, History of anemia Instructions: ED Laceration: All Closures Prescriptions: No Action latanoprost 0.005 % drops 1 drp EACH EYE QHS RF: 0 ipratropium-albuterol 0.5 mg-3 mg(2.5 mg base)/3 mL Solution For Nebulization 3 ml inhalation Q4HWA.RT PRN (Reason: SOB) Qty: 0 RF: 0 menthol-zinc oxide [Calmoseptine] 0.44-20.6 % Ointment 1 applic topical BID Qty: 0 RF: 0 tramadol 50 mg Tablet 50 mg PO DAILY RF: 0 pantoprazole [Protonix] 40 mg Tablet,Delayed Release (Dr/Ec) 40 mg PO DAILY RF: 0 levothyroxine [Synthroid] 25 mcg Tablet 25 mcg PO DAILY RF: 0 bumetanide 2 mg Tablet 2 mg PO DAILY RF: 0 potassium chloride 20 mEq Tablet Extended Release 40 meq PO BID RF: 0 cefazolin in dextrose 5 % 2 gram/100 mL solution 100 ml IV .MWF 30 Days RF: 0 insulin lispro [Humalog KwikPen Insulin] 100 unit/mL insulin pen 5 unit subcut TIDAC RF: 0 metoprolol tartrate 25 mg tablet 25 mg PO BID RF: 0 Primary Care Provider: Maury Harley Referrals: Maury Harley DO [Primary Care Provider] - As Needed Activity Restrictions/Additional Instructions: Keep the wound and stretches clean. Clean daily with soap and water. Apply antibiotic ointment daily. Stitches out in 10 days. Watch for any signs of infection such as pus, redness or streaks is seen needs to be evaluated. Follow-up with your doctor as needed. Disposition Disposition: Home, Self Care
[2021-08-27 22:42] LABS: Absolute Lymphocyte Count 0.31 X10^3/uL (0.83-4.51); Basophil# 0.01 X10^3/uL; Basophil% 0.1 % (0-1); Eosinophil# 0.04 X10^3/uL; Eosinophils% 0.3 % (0-5); Hematocrit 25.1 % (40-54); Hemoglobin 7.5 g/dL (13.0-16.5); Lymphocyte # 0.31 X10^3/ul (0.83-4.51); Lymphocyte % 2.6 % (19-41); Mean Corp Hgb Conc 29.9 g/dL (32-36); Mean Corpuscular Hgb 27.6 pg (27.0-32.0); Mean Corpuscular Volume 92.3 fL (80-94); Mean Platelet Vol. 9.2 fl (6.2-12.0); Monocyte# 0.58 X10^3/uL; Monocyte% 4.8 % (0-10); NRBC Flagged by Analyzer 0 % (0-5); Neutrophil # 11.02 X10^3/uL (2.7-7.7); Neutrophil % 91.4 % (47-70); POSITIVE DIFFERENTIAL YES; POSITIVE MORPHOLOGY YES; Platelet Count 271 K/mm3 (150-450); RBC Distribution Width CV 20.2 % (11.6-14.6); RBC Distribution Width SD 67.6 fl (35.1-43.9); Red Blood Count 2.72 M/mm3 (4.6-6.2); White Blood Count 12.1 K/mm3 (4.4-11.0)
[2021-08-27 22:44] LABS: Differential Indicated SCAN CRITERIA MET
[2021-08-27 22:57] LABS: Anion Gap 8 (5-15); BUN 71 mg/dL (7-18); BUN/Creat Ratio 19.2 RATIO (10-20); Calcium,Total 9.2 mg/dL (8.5-10.1); Chloride 98 mmol/L (98-107); Creatinine, Serum 3.69 mg/dL (0.70-1.30); EST Glomerular Filtration Rate 17 mL/min (>60); Est Glom Filt Rate - Afr Amer 21 mL/min (>60); Estimated Creatinine Clearance 17.05 ml/min; Glucose 111 mg/dL (74-106); Potassium 5.1 mmol/L (3.5-5.1); Sodium Level 133 mmol/L (136-145)
[2021-08-27 23:12] LABS: Differential Comment SCANNED
[2021-08-27 23:33] VITALS: BP 99/59; PULSE 51; RESP 20; O2SAT 97
[2021-08-28 01:00] VITALS: BP 104/53; PULSE 68; RESP 19; O2SAT 100
[2021-08-28 03:07] VITALS: BP 96/64; PULSE 45; RESP 20; O2SAT 92
--- NOTE | 2021-08-28 03:07 | NURSING ---
Called and spoke with Rakan @ [facility], report given.
[2021-08-28] MEDS: Lidocaine 1% (20 ml mdv) 20 ML Vial 10 ML INFILT (03:11)
== END 2021-08-28 04:29 ==
PROVIDERS: Emergency Provider Emergency Medicine; PCP Family Medicine; Visit Provider Emergency Medicine
DX: S81.812A Laceration without foreign body, left lower leg, initial encounter (principal); I13.2 Hypertensive heart and chronic kidney disease with heart failure and with stage 5 chronic kidney disease, or end stage renal disease; Z99.2 Dependence on renal dialysis; I50.9 Heart failure, unspecified; E11.22 Type 2 diabetes mellitus with diabetic chronic kidney disease; N18.6 End stage renal disease; Z79.4 Long term (current) use of insulin; S51.011A Laceration without foreign body of right elbow, initial encounter; S51.012A Laceration without foreign body of left elbow, initial encounter; S00.12XA Contusion of left eyelid and periocular area, initial encounter; W19.XXXA Unspecified fall, initial encounter; Y92.129 Unspecified place in nursing home as the place of occurrence of the external cause; N19 Unspecified kidney failure; E66.9 Obesity, unspecified; Z79.890 Hormone replacement therapy; Z79.899 Other long term (current) drug therapy; Z96.612 Presence of left artificial shoulder joint
CPT/HCPCS: 12002; 80048; 85025; 99284; 99285; A4216

== ENCOUNTER 2021-08-30 05:00 | Outpatient (REF) | payer SELFPAY | END 2021-08-30 23:59 | disposition home or self-care (01) | LOC: OLS.SW1020 05:00 | PROVIDERS: PCP Family Medicine; Visit Provider Internal Medicine | DX: D64.9 Anemia, unspecified (principal); B95.61 Methicillin susceptible Staphylococcus aureus infection as the cause of diseases classified elsewhere | CPT/HCPCS: 36415; 84134 ==

== ENCOUNTER → 2021-09-01 | Outpatient (CLI) | payer SELFPAY | END | disposition home or self-care (01) | LOC: LABSPEC 15:17 | PROVIDERS: PCP Family Medicine; Visit Provider Nurse Practitioner Adult Health | DX: E87.5 Hyperkalemia (principal) | CPT/HCPCS: 84132 ==

== ENCOUNTER → 2021-09-02 | Outpatient (REF) | payer SELFPAY ==
[2021-09-02 08:31] LABS: Hematocrit 28.1 % (40-54); Mean Corp Hgb Conc 28.5 g/dL (32-36); Mean Corpuscular Hgb 27.1 pg (27.0-32.0); Mean Corpuscular Volume 95.3 fL (80-94); Mean Platelet Vol. 9.4 fl (6.2-12.0); POSITIVE MORPHOLOGY YES; Platelet Count 170 K/mm3 (150-450); RBC Distribution Width CV 21.5 % (11.6-14.6); RBC Distribution Width SD 73.5 fl (35.1-43.9); Red Blood Count 2.95 M/mm3 (4.6-6.2); White Blood Count 7.8 K/mm3 (4.4-11.0)
[2021-09-02 08:33] LABS: Scan Indicated on CBC? Y/N YES- FLAGS NOTED
[2021-09-02 08:55] LABS: Anion Gap 8 (5-15); BUN 44 mg/dL (7-18); BUN/Creat Ratio 17.2 RATIO (10-20); Calcium,Total 9.1 mg/dL (8.5-10.1); Chloride 100 mmol/L (98-107); Creatinine, Serum 2.56 mg/dL (0.70-1.30); EST Glomerular Filtration Rate 27 mL/min (>60); Est Glom Filt Rate - Afr Amer 32 mL/min (>60); Glucose 94 mg/dL (74-106); Potassium 4.9 mmol/L (3.5-5.1); Sodium Level 137 mmol/L (136-145); Thyroid Stim Hormone (TSH) 9.69 uIU/mL (0.358-3.74)
[2021-09-02 08:58] LABS: Differential Comment SCANNED
[2021-09-02 09:45] LABS: Vitamin B12 822 pg/mL (211-911)
== END | disposition home or self-care (01) ==
LOC: OLS.SW1020 05:00
PROVIDERS: PCP Family Medicine; Referring Provider Internal Medicine; Visit Provider Internal Medicine
DX: R53.83 Other fatigue (principal); Z79.899 Other long term (current) drug therapy
CPT/HCPCS: 36415; 80048; 82306; 82607; 83036; 84443; 85027

== ENCOUNTER → 2021-09-09 | Outpatient (REF) | payer SELFPAY ==
[2021-09-09 11:56] LABS: Hematocrit 29.5 % (40-54); Hemoglobin 8.4 g/dL (13.0-16.5); Mean Corp Hgb Conc 28.5 g/dL (32-36); Mean Corpuscular Hgb 27.8 pg (27.0-32.0); Mean Corpuscular Volume 97.7 fL (80-94); POSITIVE MORPHOLOGY YES; Platelet Count 158 K/mm3 (150-450); RBC Distribution Width CV 19.5 % (11.6-14.6); RBC Distribution Width SD 70.7 fl (35.1-43.9); Red Blood Count 3.02 M/mm3 (4.6-6.2); White Blood Count 5.9 K/mm3 (4.4-11.0)
[2021-09-09 11:58] LABS: Scan Indicated on CBC? Y/N YES- FLAGS NOTED
[2021-09-09 12:05] LABS: Anion Gap 6 (5-15); BUN 28 mg/dL (7-18); BUN/Creat Ratio 15.1 RATIO (10-20); Calcium,Total 8.9 mg/dL (8.5-10.1); Chloride 100 mmol/L (98-107); Creatinine, Serum 1.86 mg/dL (0.70-1.30); EST Glomerular Filtration Rate 38 mL/min (>60); Est Glom Filt Rate - Afr Amer 46 mL/min (>60); Glucose 80 mg/dL (74-106); Potassium 3.5 mmol/L (3.5-5.1); Sodium Level 137 mmol/L (136-145)
== END | disposition home or self-care (01) ==
LOC: OLS.SW1020 04:00
PROVIDERS: PCP Family Medicine; Referring Provider Internal Medicine; Visit Provider Internal Medicine
DX: R78.81 Bacteremia (principal); B95.61 Methicillin susceptible Staphylococcus aureus infection as the cause of diseases classified elsewhere
CPT/HCPCS: 36415; 80048; 85027

== ENCOUNTER → 2021-09-16 | Outpatient (REF) | payer SELFPAY ==
[2021-09-16 08:42] LABS: Hematocrit 29.5 % (40-54); Hemoglobin 8.8 g/dL (13.0-16.5); Mean Corp Hgb Conc 29.8 g/dL (32-36); Mean Corpuscular Volume 93.9 fL (80-94); Platelet Count 170 K/mm3 (150-450); RBC Distribution Width CV 17.2 % (11.6-14.6); Red Blood Count 3.14 M/mm3 (4.6-6.2); White Blood Count 5.8 K/mm3 (4.4-11.0)
[2021-09-16 08:55] LABS: Anion Gap 5 (5-15); BUN 23 mg/dL (7-18); Calcium,Total 8.5 mg/dL (8.5-10.1); Chloride 101 mmol/L (98-107); Creatinine, Serum 2.09 mg/dL (0.70-1.30); EST Glomerular Filtration Rate 34 mL/min (>60); Est Glom Filt Rate - Afr Amer 41 mL/min (>60); Glucose 93 mg/dL (74-106); Sodium Level 139 mmol/L (136-145)
== END | disposition home or self-care (01) ==
LOC: OLS.SW500 04:00
PROVIDERS: PCP Family Medicine; Visit Provider Internal Medicine
DX: Z79.899 Other long term (current) drug therapy (principal)
CPT/HCPCS: 36415; 80048; 85027

== ENCOUNTER 2021-09-22 18:00 | Inpatient (IN) | payer MEDICARE, OTHER, SELFPAY ==
[2021-09-22 18:01] VITALS: BP 107/64; PULSE 86; RESP 18; TEMP 36.6; O2SAT 98; BMI 48.4
[2021-09-22 18:13] VITALS: BP 107/64; PULSE 63; RESP 16; O2SAT 100
[2021-09-22 19:10] LABS: Bedside Glucose 69 mg/dL (74-106)
--- NOTE | 2021-09-22 19:18 | EKG12_ITS ---
Test Reason : DYSRHYTHMIA Blood Pressure : / mmHG Vent. Rate : 087 BPM Atrial Rate : 072 BPM P-R Int : 000 ms QRS Dur : 140 ms QT Int : 424 ms P-R-T Axes : 000 037 002 degrees QTc Int : 510 ms Atrial fibrillation with premature ventricular or aberrantly conducted complexes Right bundle branch block Abnormal ECG Confirmed by СЕРГЕЙ VALDEZ, DARLINE ([id number]), avid editor CARLYLE MADISON ([id number]) on 09/24/2021 9:12:05 AM Referred By: NISHI Confirmed By:ADRLINE RUSHING MD
[2021-09-22 19:19] VITALS: O2SAT 97
--- NOTE | 2021-09-22 19:49 | US_ITS ---
STUDY: VENOUS DOPPLER ULTRASOUND - BILATERAL LOWER EXTREMITY REASON FOR EXAM: Male, 70 years old. LEG PAIN AND SWELLING BILATERAL SWELLING TECHNIQUE: Ultrasound evaluation of the deep vein system to include zamudio-scale imaging and compression was performed. Zamudio-scale imaging and Doppler sonographic evaluation, including duplex spectral analysis and qualitative color flow sonography, was performed. COMPARISON: None. FINDINGS: Common Femoral Vein: Normal compression, spontaneity and augmentation. Normal color Doppler. Common Femoral Vein/Greater Saphenous Junction: Normal compression, spontaneity and augmentation. Normal color Doppler. Superficial Femoral Proximal: Normal compression, spontaneity and augmentation. Normal color Doppler. Superficial Femoral Middle: Normal compression, spontaneity and augmentation. Normal color Doppler. Superficial Femoral Distal: Normal compression, spontaneity and augmentation. Normal color Doppler. Popliteal Vein: Normal compression, spontaneity and augmentation. Normal color Doppler. Posterior Tibial Vein: Normal compression, spontaneity and augmentation. Normal color Doppler. Peroneal Vein: Normal compression, spontaneity and augmentation. Normal color Doppler. There is no demonstrated deep venous thrombosis. US/Venous Duplex Imag/Cam Extrem IMPRESSION: There is no demonstrated deep venous thrombosis. Electronically Signed: Denzel Cifuentes MD at 20:59 EDT ,
[2021-09-22 20:08] LABS: Absolute Lymphocyte Count 0.48 X10^3/uL (0.83-4.51); Absolute Neutrophil Count 5.6 X10^3/uL (2.0-7.7); Basophil# 0.01 X10^3/uL; Basophil% 0.1 % (0-1); Eosinophils% 1.5 % (0-5); Hematocrit 35.5 % (40-54); Hemoglobin 10.1 g/dL (13.0-16.5); Lymphocyte # 0.48 X10^3/ul (0.83-4.51); Lymphocyte % 7.2 % (19-41); Mean Corp Hgb Conc 28.5 g/dL (32-36); Mean Corpuscular Volume 98.3 fL (80-94); Mean Platelet Vol. 8.3 fl (6.2-12.0); Monocyte# 0.48 X10^3/uL; Monocyte% 7.2 % (0-10); NRBC Flagged by Analyzer 0.4 % (0-5); Neutrophil # 5.58 X10^3/uL (2.7-7.7); Neutrophil % 83.3 % (47-70); POSITIVE DIFFERENTIAL YES; Platelet Count 224 K/mm3 (150-450); RBC Distribution Width CV 17.2 % (11.6-14.6); RBC Distribution Width SD 61.4 fl (35.1-43.9); Red Blood Count 3.61 M/mm3 (4.6-6.2); White Blood Count 6.7 K/mm3 (4.4-11.0)
--- NOTE | 2021-09-22 20:10 | RAD_ITS ---
EXAM: XR CHEST, 1 VIEW CLINICAL INDICATION: SOB TECHNIQUE: Frontal view of the chest. This report was created using [employer] report generation technology. COMPARISON: 08/24/2021 FINDINGS: LUNGS AND PLEURAL SPACES: Small bilateral pleural effusions appear more prominent on the current study. Compression atelectasis of the left lower lobe. No pneumothorax. HEART: Unremarkable. Cardiac silhouette not enlarged. MEDIASTINUM: Central airways and mediastinal contour are unremarkable. BONES/JOINTS: Left shoulder prosthesis again noted. SOFT TISSUES: Unremarkable. TUBES, LINES AND DEVICES: Dialysis catheter is. RAD/Chest 1 View (Portable) IMPRESSION: Small bilateral pleural effusions. Compression atelectasis of the left lower lobe. Electronically Signed: Bakari Alves MD at 20:26 EDT ,
[2021-09-22 20:16] LABS: Differential Indicated SCAN CRITERIA MET
[2021-09-22 20:22] LABS: International Normalized Ratio 1.4; Prothrombin Time (Protime)PT. 16.4 SECONDS (11.7-14.9)
[2021-09-22 21:20] LABS: ALB/GLOB Ratio 0.3 RATIO (0.9-2.4); AST(SGOT) 18 U/L (15-37); Alanine Aminotransfer ALT/SGPT < 6 U/L (16-61); Albumin, Serum 1.8 g/dL (3.2-5.0); Alkaline Phosphatase 103 U/L (45-117); Anion Gap 5 (5-15); BUN 15 mg/dL (7-18); BUN/Creat Ratio 8.2 RATIO (10-20); Calcium,Total 8.4 mg/dL (8.5-10.1); Chloride 100 mmol/L (98-107); Creatinine, Serum 1.82 mg/dL (0.70-1.30); EST Glomerular Filtration Rate 39 mL/min (>60); Est Glom Filt Rate - Afr Amer 48 mL/min (>60); Estimated Creatinine Clearance 34.57 ml/min; Globulin 5.6 g/dL (2.2-4.2); Glucose 89 mg/dL (74-106); Potassium 3.4 mmol/L (3.5-5.1); Protein, Total 7.4 g/dL (6.4-8.2); Sodium Level 139 mmol/L (136-145); Troponin-I HS (w/2H Reflex) 8 pg/mL (3.0-78.0)
[2021-09-22 21:33] LABS: Differential Comment SCANNED
[2021-09-22 21:58] VITALS: BP 143/88; PULSE 89; RESP 27; O2SAT 98
[2021-09-22 22:06] LABS: Reflex Troponin-HS? (from REC) Y
[2021-09-22 22:57] LABS: Troponin-I HS 7 pg/mL (3.0-78.0)
[2021-09-22 23:36] VITALS: BP 122/88; PULSE 88; RESP 28; O2SAT 97
[2021-09-23] VITALS (22 sets, daily range): BP systolic 106–132; BP diastolic 52–83; PULSE 56–91; RESP 14–24; TEMP 36.6–37.1; O2SAT 94–100; BMI 50.3
--- NOTE | 2021-09-23 00:04 | PCM.HP.STD ---
[facility] - General General Date of Admission: 09/22/21 Date of Service: 09/23/21 Chief Complaint: Shortness of breath HPI Narrative MICHEAL LEÓN, is a 70 M who presented to the emergency department with a prescription from a hospital on 09/22/2021 complaining of shortness of breath and edema. The patient has a known history of end-stage renal disease with recent initiation of dialysis which she has been receiving Monday and Monday as well as chronic respiratory failure where he wears 2 to 5 L of oxygen at baseline. The patient stated he was at dialysis today and began not feeling well during his dialysis session. His dialysis was right before presenting to the emergency department. He reports he has had increased swelling in his legs and abdomen however overall his swelling is improved from previously. He is unclear on how much fluid was removed during dialysis today and is unclear what his dry weight is for dialysis. He denied any fever or chills and has had no sick contacts however he does reside in a nursing facility. He has no nausea or vomiting, diarrhea or constipation. He denies any nasal congestion or drainage. He denies headaches or pharyngitis. He has no chest pain and really his only complaint is of shortness of breath and general malaise with swelling. Vital signs on presentation the emergency department showed a temperature of 97.9, heart rate of 86, blood pressure of 107/64, respiratory rate of 18-28 and an oxygen saturation of 97 to 100% with variable oxygen requirements. It appears he is initially was placed on a Ventimask but was able to be weaned to 3 L nasal cannula. His CBC showed a chronic stable anemia with a hemoglobin of 10.1 but no leukocytosis. INR was 1.4. His chemistry panel showed normal sodium with mild hypokalemia having a potassium of 3.4. His serum bicarb is elevated at 34.0 however this appears to be chronic. Serum creatinine is 1.82 and LFTs are normal. His initial high-sensitivity troponin was 8 with a repeat at 7. A BNP was not obtained secondary to expected elevation with history of renal failure. Venous duplex of the lower extremities was negative for DVT and his chest x-ray showed small bilateral pleural effusions and vascular congestion. [facility] Medical History 2019-nCoV vaccination declined Anasarca Anemia Atrioventricular block Bacteremia Cellulitis Chronic anemia CKD stage 4 due to type 1 diabetes mellitus COPD (chronic obstructive pulmonary disease) Debility Diabetes mellitus DVT (deep venous thrombosis) Edema Fall Glaucoma Heart block AV second degree HTN (hypertension) Hypertension Hypokalemia Hypothyroidism Left shoulder pain Leukocytosis Morbid obesity MRSA (methicillin resistant Staphylococcus aureus) Obesity Osteoarthritis of left knee Pressure ulcer Recurrent deep vein thrombosis Home Medications latanoprost 0.005 % eye drops 1 drp EACH EYE QHS eye drops 06/11/21 [History Last Taken 08/26/21] pantoprazole 40 mg tablet,delayed release (Protonix) 40 mg PO DAILY GERD 07/19/21 [History Last Taken 08/27/21] tramadol 50 mg tablet 50 mg PO DAILY pain 07/19/21 [History Last Taken Unknown] bumetanide 2 mg tablet 2 mg PO DAILY water pill 08/10/21 [History Last Taken 08/27/21] levothyroxine 25 mcg tablet (Synthroid) 50 mcg PO DAILY thyroid 08/10/21 [History Last Taken Unknown] cefazolin 2 gram/100 mL in dextrose 5 % intravenous solution 100 ml IV .MWF 30 days 08/25/21 [Rx Last Taken Unknown] metoprolol tartrate 25 mg tablet 25 mg PO BID blood pressure 08/27/21 [History Last Taken 08/27/21] acetaminophen 325 mg tablet (Tylenol) 650 mg PO Q4H PRN Pain 09/22/21 [History Last Taken Unknown] aluminum-magnesium hydroxide 225 mg-200 mg/5 mL oral suspension 30 ml PO Q4H PRN PRN Heartburn 09/22/21 [History Last Taken Unknown] ascorbic acid (vitamin C) 500 mg tablet (Vitamin C) 500 mg PO DAILY 09/22/21 [History Last Taken Unknown] bisacodyl 10 mg rectal suppository 10 mg [place] DAILY PRN Constipation 09/22/21 [History Last Taken Unknown] cholecalciferol (vitamin D3) 1,250 mcg (50,000 unit) oral wafer 1,250 mcg PO QWEEK 09/22/21 [History Last Taken Unknown] insulin lispro 100 unit/mL subcutaneous cartridge (Humalog U-100 Insulin) 5 unit subcut TID 09/22/21 [History Last Taken Unknown] midodrine 5 mg tablet 1 tab PO MOWEFR 09/22/21 [History Last Taken Unknown] vitamin B complex-vitamin C-folic acid 0.8 mg tablet (Nephro-Gerardo) 1 tab PO DAILY 09/22/21 [History Last Taken Unknown] Allergy/AdvReac Type Severity Reaction Status Date / Time No Known Allergies Allergy Verified 09/22/21 18:03 Surgical History History of left shoulder replacement Social History household members: none housing: prison current occupational status: disabled Smoking Status: Never smoker alcohol intake: never substance use type: does not use ROS Constitutional Constitutional: Reports fatigue and weakness; Denies anorexia, change in weight, chills, fever(s), malaise, night sweats or other Eyes Eyes: Denies blurry vision, change in eye color, change in vision, discharge from eye(s), double vision, erythema, eye pain, loss of vision or other ENT HEENT: Denies abnormal hearing, dysphagia, ear pain, epistaxis, headache(s), hearing loss, nasal congestion, nasal discharge, post nasal drip, sinus pressure, sore throat or other Cardiovascular Cardiovascular: Reports dyspnea on exertion and edema; Denies chest pain, claudication, lightheadedness, orthopnea, palpitations, paroxysmal nocturnal dyspnea, rapid heart rate, syncope or other Respiratory/Chest Respiratory/Chest: Reports dyspnea, shortness of breath at rest and shortness of breath with exertion; Denies cough, excessive phlegm production, hemoptysis, productive cough, wheezing or other Gastrointestinal Gastrointestinal: Denies abdominal pain, coffee ground emesis, constipation, diarrhea, dyspepsia, hematemesis, hematochezia, loose stools, melena, nausea, vomiting or other Genitourinary Genitourinary: Denies burning urination, difficulty urinating, dysuria, hematuria, nocturia, urinary frequency, urinary hesitancy, urinary incontinence, urinary urgency or other Musculoskeletal Musculoskeletal: Reports joint pain and joint stiffness; Denies arthralgias, back pain, joint swelling, myalgias, neck pain or other Neurologic Neurologic: Denies abnormal gait, abnormal speech, confusion, disequilibrium, dizziness, focal weakness, headache(s), numbness, paresthesias, seizure-like activity, seizures, syncope, tingling, tremor(s) or other Psychiatric Psychiatric: Denies anxiety, depression, homicidal ideation, suicidal ideation or other Endocrine Endocrinology: Denies change in body appearance, cold intolerance, excessive sweating, heat intolerance, polydipsia, polyuria or other Hematologic/Lymphatic Hematologic/Lymphatic: Denies anemia, easy bleeding, easy bruising, lymphadenopathy or other Allergic/Immunologic Allergic/Immunologic: Denies rhinitis, hives, eczemia, asthma or other Vital Signs Vital Signs Vital Signs: 09/22/21 18:01 09/22/21 18:06 09/22/21 18:13 Temperature 97.9 F Temperature Source Temporal Pulse Rate 86 63 Respiratory Rate 18 16 Respiratory Effort Normal Respiratory Pattern Normal Blood Pressure 107/64 107/64 Blood Pressure Mean 78 78 Pulse Ox 98 100 Oxygen Delivery Method Venturi Mask Room Air Oxygen Flow Rate (L/min) 10 Fraction of Inspired Oxygen (FIO2) 09/22/21 19:19 09/22/21 21:58 09/22/21 23:36 Temperature Temperature Source Pulse Rate 89 88 Respiratory Rate 27 H 28 H Respiratory Effort Respiratory Pattern Blood Pressure 143/88 H 122/88 H Blood Pressure Mean 106 99 Pulse Ox 97 98 97 Oxygen Delivery Method Nasal Cannula Nasal Cannula Room Air Oxygen Flow Rate (L/min) 3 2 Fraction of Inspired Oxygen (FIO2) 100 Weight Weight: 136.078 kg Body Mass Index (BMI) 48.4 Physical Exam Const Constitutional Narrative: Super morbidly obese white male lying in bed, appears comfortable, nontoxic, appears tired but evaluated close to midnight, appears older than stated age General Appearance: cooperative HEENT normocephalic and head/scalp atraumatic HEENT Narrative: Mild hearing loss, dentition is poor with patient being edentulous, Mallampati is 3-4, no thrush Mouth: oral and palatal mucosa normal Eyes PERRL, EOMs intact bilaterally and conjunctivae normal Eyes Narrative: No scleral icterus Neck no lymphadenopathy, supple and no carotid bruits Neck Narrative: Neck is short and thick, trachea midline, no thyroid enlargement Resp no retractions and no use of accessory muscles Resp Narrative: Markedly diminished diffusely especially at the bases bilaterally however auscultation is difficult secondary to body habitus, patient tachypneic Auscultation: crackles; Negative for rales, rhonchi or wheezes Cardio regular rate, regular rhythm, S1 normal heart sound, S2 normal heart sound, no murmurs, no rub, no gallops, no clicks and no JVD Cardio Narrative: Distant heart tones secondary to body habitus GI normal to inspection, nondistended, normoactive bowel sounds, soft to palpation, non-tender and non-distended GI Narrative: Large pannus, abdominal anasarca noted Extremity Extremity Narrative: Bilateral lower extremity skin changes consistent with chronic venous stasis Bilateral pitting edema in bilateral lower extremities up to groin No cyanosis or clubbing Neuro oriented x3, CN's II-XII intact bilaterally, moves all extremities and no focal motor deficits Neuro Narrative: Generalized weakness Sensorium / Orientation: awake and alert Speech: speech normal Psych Psych Narrative: Affect is somewhat flat and mood seems to be depressed Results Lab / Micro Data Attestation: I reviewed the patient's lab results. Result Diagrams: 09/22/21 20:02 09/22/21 20:02 Labs: Laboratory Results - last 24 hr 09/22/21 19:03: POC Glucose 69 L 09/22/21 20:02: WBC 6.7, RBC 3.61 L, Hgb 10.1 L, Hct 35.5 L, MCV 98.3 H, MCH 28.0, MCHC 28.5 L, RDW Std Deviation 61.4 H, RDW Coeff of Jory 17.2 H, Plt Count 224, MPV 8.3, Immature Gran % (Auto) 0.700, Neut % (Auto) 83.3 H, Lymph % (Auto) 7.2 L, [place] % (Auto) 7.2, Eos % (Auto) 1.5, Baso % (Auto) 0.1, Absolute Neuts (auto) 5.6, Absolute Lymphs (auto) 0.48 L, Nucleated RBC % 0.4, Differential Comment SCANNED 09/22/21 20:02: PT 16.4 H, INR 1.4 09/22/21 20:02: Sodium 139, Potassium 3.4 L, Chloride 100, Carbon Dioxide 34.0 H, Anion Gap 5, BUN 15, Creatinine 1.82 H, Estim Creat Clear Calc 34.57, Est GFR (MDRD) Af Amer 48 L, Est GFR (MDRD) Non-Af 39 L, BUN/Creatinine Ratio 8.2 L, Glucose 89, Calcium 8.4 L, Total Bilirubin 0.30, AST 18, ALT < 6 L, Alkaline Phosphatase 103, Troponin I High Sens 8, Total Protein 7.4, Albumin 1.8 L, Globulin 5.6 H, Albumin/Globulin Ratio 0.3 L 09/22/21 22:24: Troponin I High Sens 7 Radiology Impression Venous Duplex 09/22/21 19:49 IMPRESSION: There is no demonstrated deep venous thrombosis. Electronically Signed: Denzel Cifuentes MD at 20:59 EDT , Chest X-Ray 09/22/21 20:10 IMPRESSION: Small bilateral pleural effusions. Compression atelectasis of the left lower lobe. Electronically Signed: Bakari Alves MD at 20:26 EDT , Assessment & Plan Assessment/Plan (1) Dyspnea: (2) Debility: (3) Acute on chronic diastolic congestive heart failure: (4) Renal anasarca: (5) Fluid overload: (6) Hypokalemia: (7) Bilateral pleural effusion: PLAN: Plan Dyspnea secondary to acute on chronic decompensated diastolic and right heart failure -Patient not markedly hypoxic however he is markedly dyspneic -Does not meet criteria for acute respiratory failure -Sats were stable on 2 L at 97 to 98% -Continue home Bumex as patient does make some urine -Last dialysis was today however patient is unclear how much fluid was removed -? If dry weight needs to be right reevaluated with more fluid removal -Consult nephrology -Most recent echocardiogram was performed on 08/13/2021 that showed an EF that was normal at 60% and no LV dysfunction Small bilateral pleural effusions -Doubt enough fluid to perform thoracentesis -Nephrology consulted -? If dry weight needs to be reevaluated Anasarca -Patient with significant pitting edema up to his abdomen -Patient said it is improved -Continue home diuresis -Dialysis per nephrology Hypokalemia -40 mill equivalents of p.o. potassium given -Repeat BMP in a.m. -Check a.m. magnesium level Chronic hypoxic respiratory failure -Patient wears 2 to 5 L of oxygen at baseline History of GI bleed -Patient had been previously fully anticoagulated with Coumadin -He is, currently on anticoagulation and I suspect this is related to his previous GI bleed Debility -Consult PT/OT -Patient already resides in a nursing facility Suspected NILDA/obesity hypoventilation syndrome -Would recommend outpatient sleep study -BiPAP while here with AVAPS while sleeping and naps GERD -Continue Protonix End-stage renal disease -HD dependent -Dialysis Monday -Continue midodrine with dialysis -Nephrology consulted Hypertension -Continue metoprolol Vitamin D deficiency -Continue cholecalciferol replacement DM-2 -Continue home lispro 5 units 3 times daily with meals -Start sliding scale -Accu-Cheks before meals and at bedtime -Patient does not appear to be on any basal insulin Hypothyroidism -Continue levothyroxine -Check TSH Glaucoma -Continue eyedrops Morbid obesity -BMI 50.3 -Recommend weight loss -Complicates treatment, prognosis, outcomes History of DVT -Patient is no longer on anticoagulation per his MAR -Been on Coumadin previously -Patient is unclear why it was discontinued DVT prophylaxis -Heparin 3 times daily CODE STATUS -Patient is DNR CCA with no intubation as per discussion the emergency department admission Charges/Coding Visit Charges Inpatient E&M: 58093 Init Hosp L3
--- NOTE | 2021-09-23 00:31 | EDS_ITS ---
HPI History of Present Illness Chief Complaint: Edema Informant: patient and EMS Narrative Narrative: Patient is a 70-year-old male with complex medical history including end-stage renal disease on hemodialysis, Monday and Monday as well as chronic respiratory failure on 2 to 5 L of oxygen at baseline, GI bleed, COPD and CHF presenting with increased leg swelling. Patient does have a history of DVT and's not currently anticoagulated. I suspect is likely to his prior GI bleed.EMS report also stated that nursing had been reported to have foul- smelling urine however patient did not complain of this to me. Patient states he is not feeling well during dialysis. States he had dialysis right before coming in. He had increased swelling of his legs and his abdomen. He does feel mildly short of breath. He denies any chest pain. He states he just feels full. [facility] Medical History 2019-nCoV vaccination declined Acute and chronic respiratory failure Acute on chronic respiratory failure with hypoxia Acute renal failure GAYE (acute kidney injury) Anasarca Anemia Atrioventricular block Bacteremia Cellulitis CKD stage 4 due to type 1 diabetes mellitus COPD (chronic obstructive pulmonary disease) Debility Diabetes mellitus DVT (deep venous thrombosis) Edema Fall Heart block AV second degree HTN (hypertension) Hypokalemia Hypothyroidism Left shoulder pain Leukocytosis MRSA (methicillin resistant Staphylococcus aureus) Obesity Osteoarthritis of left knee Pressure ulcer Home Medications latanoprost 0.005 % eye drops 1 drp EACH EYE QHS eye drops 06/11/21 [History Last Taken 08/26/21] pantoprazole 40 mg tablet,delayed release (Protonix) 40 mg PO DAILY GERD 07/19/21 [History Last Taken 08/27/21] tramadol 50 mg tablet 50 mg PO DAILY pain 07/19/21 [History Last Taken Unknown] bumetanide 2 mg tablet 2 mg PO DAILY water pill 08/10/21 [History Last Taken 0 08/27/21] levothyroxine 25 mcg tablet (Synthroid) 50 mcg PO DAILY thyroid 08/10/21 [History Last Taken Unknown] cefazolin 2 gram/100 mL in dextrose 5 % intravenous solution 100 ml IV .MWF 30 days 08/25/21 [Rx Last Taken Unknown] metoprolol tartrate 25 mg tablet 25 mg PO BID blood pressure 08/27/21 [History Last Taken 08/27/21] acetaminophen 325 mg tablet (Tylenol) 650 mg PO Q4H PRN Pain 09/22/21 [History Last Taken Unknown] aluminum-magnesium hydroxide 225 mg-200 mg/5 mL oral suspension 30 ml PO Q4H PRN PRN Heartburn 09/22/21 [History Last Taken Unknown] ascorbic acid (vitamin C) 500 mg tablet (Vitamin C) 500 mg PO DAILY 09/22/21 [History Last Taken Unknown] bisacodyl 10 mg rectal suppository 10 mg [place] DAILY PRN Constipation 09/22/21 [History Last Taken Unknown] cholecalciferol (vitamin D3) 1,250 mcg (50,000 unit) oral wafer 1,250 mcg PO QWEEK 09/22/21 [History Last Taken Unknown] insulin lispro 100 unit/mL subcutaneous cartridge (Humalog U-100 Insulin) 5 unit subcut TID 09/22/21 [History Last Taken Unknown] midodrine 5 mg tablet 1 tab PO MOWEFR 09/22/21 [History Last Taken Unknown] vitamin B complex-vitamin C-folic acid 0.8 mg tablet (Nephro-Gerardo) 1 tab PO DAILY 09/22/21 [History Last Taken Unknown] Allergy/AdvReac Type Severity Reaction Status Date / Time No Known Allergies Allergy Verified 09/22/21 18:03 Surgical History History of left shoulder replacement Social History household members: none housing: [facility] current occupational status: disabled Smoking Status: Never smoker alcohol intake: never substance use type: does not use ROS ROS ED Constitutional Constitutional ED: Reports other Details: Generalized weakness ; Denies chills or fever(s) Eyes Eyes: Denies change in vision ENT ENT ED: Denies rhinorrhea or sore throat Cardiovascular Cardiovascular: Denies chest pain or palpitations Respiratory/Chest Respiratory/Chest: Reports dyspnea and dyspnea on exertion; Denies cough Gastrointestinal Gastrointestinal: Reports other Details: Abdominal distention ; Denies abdominal pain, diarrhea or vomiting Musculoskeletal Musculoskeletal: Denies arthralgias or myalgias Integumentary Denies rash Neurologic Neurologic: Denies headache(s), paresthesias or weakness Psychiatric Psychiatric: Denies anxiety EXAM Physical Exam Const Vital Signs: 09/22/21 18:01 09/22/21 18:06 09/22/21 18:13 Temperature 97.9 F Temperature Source Temporal Pulse Rate 86 63 Respiratory Rate 18 16 Respiratory Effort Normal Respiratory Pattern Normal Blood Pressure 107/64 107/64 Blood Pressure Mean 78 78 Pulse Ox 98 100 Oxygen Delivery Method Venturi Mask Room Air Oxygen Flow Rate (L/min) 10 Fraction of Inspired Oxygen (FIO2) 09/22/21 19:19 09/22/21 21:58 09/22/21 23:36 Temperature Temperature Source Pulse Rate 89 88 Respiratory Rate 27 H 28 H Respiratory Effort Respiratory Pattern Blood Pressure 143/88 H 122/88 H Blood Pressure Mean 106 99 Pulse Ox 97 98 97 Oxygen Delivery Method Nasal Cannula Nasal Cannula Room Air Oxygen Flow Rate (L/min) 3 2 Fraction of Inspired Oxygen (FIO2) 100 Positive well nourished, well developed and obese General Appearance ED: well developed and NAD Nutritional Appearance: obese HEENT Reports moist mucous membranes Eyes PERRL and EOMs intact bilaterally Neck supple and no JVD Chest Wall inspection of chest normal Resp Resp Narrative: Diminished breath sounds at the bases. Patient has tachypnea and conversational dyspnea Effort and Inspection: Negative for retractions Auscultation: Negative for wheezes Cardio regular rate, regular rhythm and no murmurs GI non-tender GI Narrative: Distended abdomen. Soft. Pitting edema of the lower abdomen appreciated Extremity Extremity Narrative: 3+ pitting edema up to the proximal thighs General Extremety ED: Negative for tenderness Neuro oriented x3 and no sensory deficits noted Neuro Narrative: Patient is generally weak but does not appear to have any focal deficits Psych mental status grossly normal Skin no rashes or lesions noted Skin Narrative: Chronic venous stasis changes of the lower extremities. MDM MDM MDM Narrative Medical decision making narrative: Patient is evaluated for generalized weakness and worsening edema. Patient is quite edematous and does have tachypnea and conversational dyspnea in the ER. Initial blood sugar is 69 and he is slightly somnolent so he is given something to drink in the emergency room. Patient's high-sensitivity troponin is 8 and 7. EKG does not show acute ischemic changes. As he is end-stage renal disease I did not check a BNP as I expect he will be elevated and will not really help guide therapy. Venous duplex is obtained which is negative for DVT. I suspect his peripheral edema is secondary to his heart failure. Patient has chronic anemia but his hemoglobin is actually improved today at 10.1. White blood cell count is normal. No concern for acute infection at this time. He has elevated creatinine consistent with his end-stage renal disease. No significant electrolyte abnormalities. Patient does not urinate while in the emergency room however urine and urine culture is ordered. Chest x-ray interpreted by myself as well as radiology shows bilateral pleural effusions, left worse than right. It slightly worse than prior x-ray. Patient is subtherapeutic on his INR but does not appear to be on Coumadin anymore. He will be admitted for fluid overload given that he clinically has anasarca despite being dialyzed earlier today and while he is not hypoxic he does have worsening pleural effusion on chest x-ray and is persistently tachypneic in the emergency room. He is agreeable this plan of care. Lab Data Attestation: I reviewed the patient's lab results. Labs: Laboratory Results - last 24 hr 09/22/21 09/22/21 09/22/21 19:03 20:02 20:02 WBC 6.7 RBC 3.61 L Hgb 10.1 L Hct 35.5 L MCV 98.3 H MCH 28.0 MCHC 28.5 L RDW Std Deviation 61.4 H RDW Coeff of Jory 17.2 H Plt Count 224 MPV 8.3 Immature Gran % (Auto) 0.700 Neut % (Auto) 83.3 H Lymph % (Auto) 7.2 L [place] % (Auto) 7.2 Eos % (Auto) 1.5 Baso % (Auto) 0.1 Absolute Neuts (auto) 5.6 Absolute Lymphs (auto) 0.48 L Nucleated RBC % 0.4 Differential Comment SCANNED PT 16.4 H INR 1.4 Sodium Potassium Chloride Carbon Dioxide Anion Gap BUN Creatinine Estim Creat Clear Calc Est GFR (MDRD) Af Amer Est GFR (MDRD) Non-Af BUN/Creatinine Ratio Glucose Calcium Total Bilirubin AST ALT Alkaline Phosphatase Troponin I High Sens Total Protein Albumin Globulin Albumin/Globulin Ratio POC Glucose 69 L 09/22/21 09/22/21 20:02 22:24 WBC RBC Hgb Hct MCV MCH MCHC RDW Std Deviation RDW Coeff of Jory Plt Count MPV Immature Gran % (Auto) Neut % (Auto) Lymph % (Auto) [place] % (Auto) Eos % (Auto) Baso % (Auto) Absolute Neuts (auto) Absolute Lymphs (auto) Nucleated RBC % Differential Comment PT INR Sodium 139 Potassium 3.4 L Chloride 100 Carbon Dioxide 34.0 H Anion Gap 5 BUN 15 Creatinine 1.82 H Estim Creat Clear Calc 34.57 Est GFR (MDRD) Af Amer 48 L Est GFR (MDRD) Non-Af 39 L BUN/Creatinine Ratio 8.2 L Glucose 89 Calcium 8.4 L Total Bilirubin 0.30 AST 18 ALT < 6 L Alkaline Phosphatase 103 Troponin I High Sens 8 7 Total Protein 7.4 Albumin 1.8 L Globulin 5.6 H Albumin/Globulin Ratio 0.3 L POC Glucose Radiography Chest X-Ray - ED: 1 View, Read by ED Physician, Read by Radiologist, No Infil trates, Right Effusion and Left Effusion Diagnostic Testing: Clinical Impression(s) from Imaging Studies Venous Duplex 09/22/21 19:49 IMPRESSION: There is no demonstrated deep venous thrombosis. Electronically Signed: Denzel Cifuentes MD at 20:59 EDT , Chest X-Ray 09/22/21 20:10 IMPRESSION: Small bilateral pleural effusions. Compression atelectasis of the left lower lobe. Electronically Signed: Bakari Alves MD at 20:26 EDT , Rhythm Strip Rhythm Strip: A-fib Rate: 86 Ectopy: PVC(s) EKG Initial EKG: Attestation: I personally reviewed and interpreted this EKG as follows: Interpretation: Atrial Fibrillation and RBBB Comments: No ST elevations. QTC prolonged at 510 Normal axis Questionable alternate and with QRS complex Discharge Plan Triage Chief Complaint: Edema ED Provider: Evelyne Peterson Dx/Rx/DC Orders Clinical Impression: Renal anasarca, Fluid overload Primary Care Provider: Maury Harley Disposition Disposition: Acute Care [facility]
--- NOTE | 2021-09-23 01:00 | NURSING ---
REPORT RECIEVED FROM JONNA ALMONTE AT 0020.
[2021-09-23] MEDS: Potassium Chloride Oral Tablet 20 MEQ 40 MEQ PO (02:11)
[2021-09-23 02:54] LABS: Troponin-I HS 7 pg/mL (3.0-78.0)
[2021-09-23 06:01] LABS: Absolute Lymphocyte Count 0.41 X10^3/uL (0.83-4.51); Absolute Neutrophil Count 5.4 X10^3/uL (2.0-7.7); Basophil# 0.01 X10^3/uL; Basophil% 0.2 % (0-1); Eosinophil# 0.06 X10^3/uL; Eosinophils% 0.9 % (0-5); Hematocrit 32.1 % (40-54); Hemoglobin 9.6 g/dL (13.0-16.5); Lymphocyte # 0.41 X10^3/ul (0.83-4.51); Lymphocyte % 6.3 % (19-41); Mean Corp Hgb Conc 29.9 g/dL (32-36); Mean Corpuscular Hgb 28.6 pg (27.0-32.0); Mean Corpuscular Volume 95.5 fL (80-94); Mean Platelet Vol. 8.4 fl (6.2-12.0); Monocyte# 0.58 X10^3/uL; Monocyte% 8.9 % (0-10); NRBC Flagged by Analyzer 0.3 % (0-5); Neutrophil # 5.42 X10^3/uL (2.7-7.7); Neutrophil % 83.1 % (47-70); POSITIVE DIFFERENTIAL YES; Platelet Count 192 K/mm3 (150-450); RBC Distribution Width CV 17.4 % (11.6-14.6); RBC Distribution Width SD 60.7 fl (35.1-43.9); Red Blood Count 3.36 M/mm3 (4.6-6.2); White Blood Count 6.5 K/mm3 (4.4-11.0)
[2021-09-23 06:06] LABS: Differential Indicated SCAN CRITERIA MET
[2021-09-23 06:27] LABS: Macrocytosis 1+
[2021-09-23 06:28] LABS: Anisocytosis 1+
[2021-09-23] MEDS: Levothyroxine 50 MCG Tablet PO (06:44)
[2021-09-23 06:47] LABS: ALB/GLOB Ratio 0.3 RATIO (0.9-2.4); AST(SGOT) 19 U/L (15-37); Alanine Aminotransfer ALT/SGPT < 6 U/L (16-61); Albumin, Serum 1.6 g/dL (3.2-5.0); Alkaline Phosphatase 92 U/L (45-117); Anion Gap 6 (5-15); BUN 17 mg/dL (7-18); Calcium,Total 8.5 mg/dL (8.5-10.1); Chloride 102 mmol/L (98-107); Creatinine, Serum 1.88 mg/dL (0.70-1.30); EST Glomerular Filtration Rate 38 mL/min (>60); Est Glom Filt Rate - Afr Amer 46 mL/min (>60); Estimated Creatinine Clearance 33.46 ml/min; Globulin 5.1 g/dL (2.2-4.2); Glucose 67 mg/dL (74-106); Magnesium 2.2 mg/dL (1.6-2.6); Phosphorus 2.6 mg/dL (2.5-4.9); Potassium 3.9 mmol/L (3.5-5.1); Protein, Total 6.7 g/dL (6.4-8.2); Sodium Level 136 mmol/L (136-145); Thyroid Stim Hormone (TSH) 8.18 uIU/mL (0.358-3.74)
[2021-09-23 07:06] LABS: Bedside Glucose 69 mg/dL (74-106)
[2021-09-23 07:36] LABS: Bedside Glucose 92 mg/dL (74-106)
--- NOTE | 2021-09-23 07:36 | PN.HOSP_ITS ---
Subjective Subjective Follow-up for fluid overload, anasarca, shortness of breath along with multiple comorbidities Patient looks short of breath. Lower extremity, upper extremity abdominal swelling. Denies chest pain or pressure. Objective Data Objective Data Vital Signs: Vital Signs Temp Pulse Resp BP Pulse Ox FiO2 98.8 F 85 20 H 132/65 H 95 25 09/23/21 06:49 09/23/21 06:49 09/23/21 06:49 09/23/21 06:49 09/23/21 06:49 09/23/21 04:47 Oxygen Flow Rate (L/min) 2.5 Oxygen Delivery Method Nasal Cannula Weight: 311 lb 8.211 oz Body Mass Index (BMI) 50.3 Intake & Output: Intake and Output for Last 24 Hours 09/21/21 09/22/21 09/23/21 23:59 23:59 23:59 Intake Total 50 / 50 Balance 50 / 50 Lab / Micro Data Attestation: I reviewed the patient's lab results. Result Diagrams: 09/23/21 05:43 09/23/21 05:43 Labs: Laboratory Results - last 24 hr 09/22/21 19:03: POC Glucose 69 L 09/22/21 20:02: WBC 6.7, RBC 3.61 L, Hgb 10.1 L, Hct 35.5 L, MCV 98.3 H, MCH 28.0, MCHC 28.5 L, RDW Std Deviation 61.4 H, RDW Coeff of Jory 17.2 H, Plt Count 224, MPV 8.3, Immature Gran % (Auto) 0.700, Neut % (Auto) 83.3 H, Lymph % (Auto) 7.2 L, [place] % (Auto) 7.2, Eos % (Auto) 1.5, Baso % (Auto) 0.1, Absolute Neuts (auto) 5.6, Absolute Lymphs (auto) 0.48 L, Nucleated RBC % 0.4, Differential Comment SCANNED 09/22/21 20:02: PT 16.4 H, INR 1.4 09/22/21 20:02: Sodium 139, Potassium 3.4 L, Chloride 100, Carbon Dioxide 34.0 H , Anion Gap 5, BUN 15, Creatinine 1.82 H, Estim Creat Clear Calc 34.57, Est GFR (MDRD) Af Amer 48 L, Est GFR (MDRD) Non-Af 39 L, BUN/Creatinine Ratio 8.2 L, Glucose 89, Calcium 8.4 L, Total Bilirubin 0.30, AST 18, ALT < 6 L, Alkaline Phosphatase 103, Troponin I High Sens 8, Total Protein 7.4, Albumin 1.8 L, Globulin 5.6 H, Albumin/Globulin Ratio 0.3 L 09/22/21 22:24: Troponin I High Sens 7 09/23/21 02:30: Troponin I High Sens 7 09/23/21 05:43: WBC 6.5, RBC 3.36 L, Hgb 9.6 L, Hct 32.1 L, MCV 95.5 H, MCH 28.6, MCHC 29.9 L, RDW Std Deviation 60.7 H, RDW Coeff of Jory 17.4 H, Plt Count 192, MPV 8.4, Immature Gran % (Auto) 0.600, Neut % (Auto) 83.1 H, Lymph % (Auto) 6.3 L, [place] % (Auto) 8.9, Eos % (Auto) 0.9, Baso % (Auto) 0.2, Absolute Neuts (auto) 5.4, Absolute Lymphs (auto) 0.41 L, Nucleated RBC % 0.3, Anisocytosis 1+, Macrocytosis 1+ 09/23/21 05:43: Sodium 136, Potassium 3.9, Chloride 102, Carbon Dioxide 28.0, Anion Gap 6, BUN 17, Creatinine 1.88 H, Estim Creat Clear Calc 33.46, Est GFR (MDRD) Af Amer 46 L, Est GFR (MDRD) Non-Af 38 L, BUN/Creatinine Ratio 9.0 L, Glucose 67 L, Calcium 8.5, Phosphorus 2.6, Magnesium 2.2, Total Bilirubin 0.40, AST 19, ALT < 6 L, Alkaline Phosphatase 92, Total Protein 6.7, Albumin 1.6 L, Globulin 5.1 H, Albumin/Globulin Ratio 0.3 L, TSH 8.18 H 09/23/21 06:46: POC Glucose 69 L 09/23/21 07:32: POC Glucose 92 Radiography Diagnostic Testing: Radiology Impression Venous Duplex 09/22/21 19:49 IMPRESSION: There is no demonstrated deep venous thrombosis. Electronically Signed: Denzel Cifuentes MD at 20:59 EDT , Chest X-Ray 09/22/21 20:10 IMPRESSION: Small bilateral pleural effusions. Compression atelectasis of the left lower lobe. Electronically Signed: Bakari Alves MD at 20:26 EDT , Rhythm Strip Rhythm Strip: A-fib Rate: 86 Ectopy: PVC(s) Physical Exam Narrative The patient was admitted with increased leg swelling and mild shortness of breath. Patient did not feel well during dialysis, just before ED visit. Assessment & Plan Assessment/Plan (1) Debility: (2) Acute on chronic diastolic congestive heart failure: (3) Hypokalemia: (4) Bilateral pleural effusion: PLAN: Plan 1. Dyspnea due to acute on chronic decompensated HFpEF: Patient is being admitted in PCU. Last 2D echo in June 2021 shows EF 65% with stage I diastolic dysfunction, normal RV function and systolic function. Thereafter he had 2 times SHLOMO for MSSA bacteremia and no evidence of vegetation found. Structurally normal valves. Patient does not meet criteria for acute hypoxic respiratory. Patient on Bumex at home, increased to 2 mg IV twice daily. Heart failure core measures including intake and output, fluid restriction less than 1500 mL, daily weight monitoring, kidney and electrolytes monitoring. Patient on hemodialysis. 2. Anasarca with small bilateral pleural effusions: Chest x-ray shows small bilateral pleural effusion with compression atelectasis of left lower lobe. Not enough fluid for thoracocentesis. 3. Hypokalemia: Potassium replaced and corrected. Repeat K3.9. 4. Chronic hypoxic respiratory failure -Patient wears 2 to 5 L of oxygen at baseline 5 history of GI bleed -Patient had been previously fully anticoagulated with Coumadin, currently not on anticoagulation due to GI bleed history. 6. COPD/obesity hypoventilation syndrome/NILDA: AVAPS while sleeping and naps. Outpatient sleep study 7. 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 On midodrine. Tobacco Drying Machine Operator was consulted. 8. Diabetes mellitus type 2: Accu-Chek insulin is covered with Humalog sliding scale. Glucose 123. 9. Hypothyroidism: TSH 8.18. Free T4 tomorrow a.m. TSH was elevated 9.69 in September 02, 2021. Multiple other comorbidities include GERD, hypertension, hypothyroidism, glaucoma, morbid obese, DVT: BMI 50.3 kg/m?. Patient was on warfarin before but discontinued due to GI bleed. Multiple comorbidities complicates the present care and expect difficult and delay recovery DVT prophylaxis: Heparin 5000 subcutaneous every 12 hourly. CODE STATUS -Patient is DNR CCA with no intubation as per discussion the emergency department admission I talked to the network internship Dr. Ball, ID Dr. Gallardo and also talked to patient's POA Alison Blunt, [phone]. Initially had a question regarding blood culture testing but there is no indication of preempting testing for blood culture in the absence of fever, leukocytosis or change in antibiotic treatment. Patient on therapeutic dose of cefazolin 2 g on dialysis days as per ID recommendation therefore getting treatment for MSSA bacteremia. Last blood cultures were negative on 08/14 and 08/15. Total time of the visit including total time spent in counseling or coordination of care, (more than 50% of the total time, spent in obtaining medical information from nurses and other ancillary care providers,explaining to the patient about labs, imaging, diagnosis and management), discussion with documentum consultant network internship and vocational ed instructor, given clinical update, prognosis to POA, Ms. Rosas, review of labs and imaging is 40 minutes. Charges/Coding Procedures Hospitalists Procedures: 62118 Prolonged InPt Service; first hour
[2021-09-23] MEDS: Pantoprazole Sodium 40 MG Tablet PO (10:02)
[2021-09-23] MEDS: Heparin Injection (Vial) 5,000 UNIT/ML VIAL 5000 UNIT SC ×2 (10:02→22:45)
[2021-09-23] MEDS: Metoprolol Tartrate 25 MG Tablet PO (10:02)
[2021-09-23] MEDS: traMADol 50 MG Tablet PO (10:02)
[2021-09-23] MEDS: Bumetanide 2 MG Tablet PO (10:02)
[2021-09-23] MEDS: Ascorbic Acid 500 MG Tablet PO (10:02)
[2021-09-23] MEDS: Folic Acid/Vitamin B Comp W-C 1 Capsule 1 CAP PO (10:02)
--- NOTE | 2021-09-23 10:20 | CASEMGMT ---
Patient is from [facility]. SW called patient's niece, Alison who is also patient's Healthcare Power of Customer Success Specialist. Alison said if patient still needs dialysis he will go back to [facility]. However, if he does not need dialysis she would like him to go back to [facility]. SW told her SW will follow along and let her know if something changes with dialysis. Leslie Caldera MAINTENANCE PAINTER APPRENTICE LIANA
[2021-09-23 11:46] LABS: Bedside Glucose 123 mg/dL (74-106)
--- NOTE | 2021-09-23 13:14 | PCM.CONS.R ---
Documented by User: [email or web address] Medellin 09/23/21 13:45 Assessment & Plan Assessment/Plan (1) GAYE (acute kidney injury): (2) Dyspnea: (3) Fluid overload: (4) Acute on chronic diastolic congestive heart failure: PLAN: Plan -Patient was brought to the emergency room yesterday for evaluation of shortness of breath and admitted for further evaluation and treatment. 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 Patient also developed ATN and because of worsening kidney function and hypervolemia (failed high dose IV diuretics) was started on hemodialysis, first HD session 08/24/2021: SCr 3.78mg/dL, BUN 122 on 08/24/2021. Patient had normal baseline creatinine as of June 2021. He is significantly hypervolemic. His weight was ~160 kg at start of dialysis. He has been tolerating fluid removal with dialysis however recently noted to have lower blood pressures therefore he was started on midodrine pre-HD. He tolerated 3.2 L fluid removal with dialysis yesterday, post HD weight 143.4 kg. There is no acute indication for DIVERSIONAL THERAPIST today. We will plan for dialysis tomorrow over 4 hours and attempt fluid removal as patient and blood pressure tolerates. We will continue midodrine pre-HD. We will continue to monitor for renal recovery. At the kidney center last week, patient's pre-HD serum creatinine was 2.88 mg/dL however this may be dilutional and not a true picture of renal function as patient is still significantly hypervolemic. Fortunately patient does produce urine, recommend to continue on Bumex as ordered. Once volume status improves we will have a better idea of renal function/if any renal recovery. CXR reviewed and showed small bilateral pleural effusions. -Patient has history of MSSA infection (SHLOMO negative) and has been receiving cefazolin 2gm IV post dialysis with stop date 09/25/2021. -Patient has a history of chronic HFpEF (EF 65%, stage I diastolic dysfunction) and second-degree AV block with A-V dissociation. He was evaluated by cardiology during last hospitalization and beta-blockers were stopped. Since Bps on lower side, heart rate/rhythm controlled and recently low bps at dialysis at times limiting fluid removal will stop metoprolol. - Further orders forthcoming as hospitalization evolves, thank you for allowing us to participate in the care of Mr. Harris HPI Consult Data Date of Consult: 09/23/21 HPI Narrative HPI Narrative: MICHEAL HARRIS, is a 70 M who was brought to the emergency room yesterday for evaluation of shortness of breath. Patient has a difficult time recalling recent events, he is alert to name, recalls that he had dialysis yesterday. Denies any complaints during dialysis yesterday. Apparently complained of shortness of breath at the ECF. Patient was admittd for further evaluation and treatment of shortness of breath. 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 Patient's first dialysis was on August 22, 2021. He is currently dialyzing on a Monday schedule at [facility]. Patient is compliant with his dialysis sessions. His weight before beginning dialysis was approximately 160 kg. Patient tolerates fluid removal with dialysis and yesterday his postdialysis weight 143kg. Patient currently denies any nausea or vomiting. Reports shortness of breath has improved. He is on nasal cannula. [facility] Medical History 2019-nCoV vaccination declined Anasarca Anemia Atrioventricular block Bacteremia Cellulitis Chronic anemia CKD stage 4 due to type 1 diabetes mellitus COPD (chronic obstructive pulmonary disease) Debility Diabetes mellitus DVT (deep venous thrombosis) Edema Fall Glaucoma Heart block AV second degree HTN (hypertension) Hypertension Hypokalemia Hypothyroidism Left shoulder pain Leukocytosis Morbid obesity MRSA (methicillin resistant Staphylococcus aureus) Obesity Osteoarthritis of left knee Pressure ulcer Recurrent deep vein thrombosis Home Medications latanoprost 0.005 % eye drops 1 drp EACH EYE QHS eye drops 06/11/21 [History Last Taken 08/26/21] pantoprazole 40 mg tablet,delayed release (Protonix) 40 mg PO DAILY GERD 07/19/21 [History Last Taken 08/27/21] tramadol 50 mg tablet 50 mg PO DAILY pain 07/19/21 [History Last Taken Unknown] bumetanide 2 mg tablet 2 mg PO DAILY water pill 08/10/21 [History Last Taken 08/27/21] levothyroxine 25 mcg tablet (Synthroid) 50 mcg PO DAILY thyroid 08/10/21 [History Last Taken Unknown] cefazolin 2 gram/100 mL in dextrose 5 % intravenous solution 100 ml IV .MWF 30 days 08/25/21 [Rx Last Taken Unknown] metoprolol tartrate 25 mg tablet 25 mg PO 1XD blood pressure 08/27/21 [History Last Taken 08/27/21] acetaminophen 325 mg tablet (Tylenol) 650 mg PO Q4H PRN Pain 09/22/21 [History Last Taken Unknown] aluminum-magnesium hydroxide 225 mg-200 mg/5 mL oral suspension 30 ml PO Q4H PRN PRN Heartburn 09/22/21 [History Last Taken Unknown] ascorbic acid (vitamin C) 500 mg tablet (Vitamin C) 500 mg PO DAILY 09/22/21 [History Last Taken Unknown] bisacodyl 10 mg rectal suppository 10 mg [place] DAILY PRN Constipation 09/22/21 [History Last Taken Unknown] cholecalciferol (vitamin D3) 1,250 mcg (50,000 unit) oral wafer 1,250 mcg PO QWEEK 09/22/21 [History Last Taken Unknown] insulin lispro 100 unit/mL subcutaneous cartridge (Humalog U-100 Insulin) 5 unit subcut TID 09/22/21 [History Last Taken Unknown] midodrine 5 mg tablet 1 tab PO MOWEFR 09/22/21 [History Last Taken Unknown] vitamin B complex-vitamin C-folic acid 0.8 mg tablet (Nephro-Gerardo) 1 tab PO DAILY 09/22/21 [History Last Taken Unknown] Allergy/AdvReac Type Severity Reaction Status Date / Time No Known Allergies Allergy Verified 09/22/21 18:03 Surgical History History of left shoulder replacement Social History household members: none housing: detention current occupational status: disabled Smoking Status: Never smoker alcohol intake: never substance use type: does not use ROS ROS Narrative As per HPI and past medical history Physical Exam Narrative Const: Alert and oriented to person and place HEENT: Head is normocephalic, oral mucosa is moist Cardio: S1-S2, RRR Respiratory: Lung sounds clear anteriorly diminished breath sounds posterior bases no rhonchi or rales. GI: Abdomen soft, rounded, positive bowel sounds, pitting edema lower abdominal wall Extremities: Giuseppe wraps intact to bilateral lower legs. Pitting edema noted bilateral legs Tunneled dialysis catheter right chest area, dressing clean, dry and intact Lab / Micro Data Result Diagrams: 09/25/21 07:25 09/25/21 07:25 Labs: Laboratory Results - last 24 hr 09/22/21 19:03: POC Glucose 69 L 09/22/21 20:02: WBC 6.7, RBC 3.61 L, Hgb 10.1 L, Hct 35.5 L, MCV 98.3 H, MCH 28.0, MCHC 28.5 L, RDW Std Deviation 61.4 H, RDW Coeff of Jory 17.2 H, Plt Count 224, MPV 8.3, Immature Gran % (Auto) 0.700, Neut % (Auto) 83.3 H, Lymph % (Auto) 7.2 L, [place] % (Auto) 7.2, Eos % (Auto) 1.5, Baso % (Auto) 0.1, Absolute Neuts (auto) 5.6, Absolute Lymphs (auto) 0.48 L, Nucleated RBC % 0.4, Differential Comment SCANNED 09/22/21 20:02: PT 16.4 H, INR 1.4 09/22/21 20:02: Sodium 139, Potassium 3.4 L, Chloride 100, Carbon Dioxide 34.0 H, Anion Gap 5, BUN 15, Creatinine 1.82 H, Estim Creat Clear Calc 34.57, Est GFR (MDRD) Af Amer 48 L, Est GFR (MDRD) Non-Af 39 L, BUN/Creatinine Ratio 8.2 L, Glucose 89, Calcium 8.4 L, Total Bilirubin 0.30, AST 18, ALT < 6 L, Alkaline Phosphatase 103, Troponin I High Sens 8, Total Protein 7.4, Albumin 1.8 L, Globulin 5.6 H, Albumin/Globulin Ratio 0.3 L 09/22/21 22:24: Troponin I High Sens 7 09/23/21 02:30: Troponin I High Sens 7 09/23/21 05:43: WBC 6.5, RBC 3.36 L, Hgb 9.6 L, Hct 32.1 L, MCV 95.5 H, MCH 28.6, MCHC 29.9 L, RDW Std Deviation 60.7 H, RDW Coeff of Jory 17.4 H, Plt Count 192, MPV 8.4, Immature Gran % (Auto) 0.600, Neut % (Auto) 83.1 H, Lymph % (Auto) 6.3 L, [place] % (Auto) 8.9, Eos % (Auto) 0.9, Baso % (Auto) 0.2, Absolute Neuts (auto) 5.4, Absolute Lymphs (auto) 0.41 L, Nucleated RBC % 0.3, Anisocytosis 1+, Macrocytosis 1+ 09/23/21 05:43: Sodium 136, Potassium 3.9, Chloride 102, Carbon Dioxide 28.0, Anion Gap 6, BUN 17, Creatinine 1.88 H, Estim Creat Clear Calc 33.46, Est GFR (MDRD) Af Amer 46 L, Est GFR (MDRD) Non-Af 38 L, BUN/Creatinine Ratio 9.0 L, Glucose 67 L, Calcium 8.5, Phosphorus 2.6, Magnesium 2.2, Total Bilirubin 0.40, AST 19, ALT < 6 L, Alkaline Phosphatase 92, Total Protein 6.7, Albumin 1.6 L, Globulin 5.1 H, Albumin/Globulin Ratio 0.3 L, TSH 8.18 H 09/23/21 06:46: POC Glucose 69 L 09/23/21 07:32: POC Glucose 92 09/23/21 11:35: POC Glucose 123 H Rhythm Strip Rhythm Strip: A-fib Rate: 86 Ectopy: PVC(s) Radiology Impression Venous Duplex 09/22/21 19:49 IMPRESSION: There is no demonstrated deep venous thrombosis. Electronically Signed: Denzel Ciufentes MD at 20:59 EDT , Chest X-Ray 09/22/21 20:10 IMPRESSION: Small bilateral pleural effusions. Compression atelectasis of the left lower lobe. Electronically Signed: Bakari Alves MD at 20:26 EDT , Documented by User: Dr. Rehana King MD 09/25/21 10:51 Assessment & Plan Assessment/Plan (1) GAYE (acute kidney injury): (2) Dyspnea: (3) Fluid overload: (4) Acute on chronic diastolic congestive heart failure: HPI Consult Data Date of Consult: 09/25/21 [facility] Medical History 2019-nCoV vaccination declined Anasarca Anemia Atrioventricular block Bacteremia Cellulitis Chronic anemia CKD stage 4 due to type 1 diabetes mellitus COPD (chronic obstructive pulmonary disease) Debility Diabetes mellitus DVT (deep venous thrombosis) Edema Fall Glaucoma Heart block AV second degree HTN (hypertension) Hypertension Hypokalemia Hypothyroidism Left shoulder pain Leukocytosis Morbid obesity MRSA (methicillin resistant Staphylococcus aureus) Obesity Osteoarthritis of left knee Pressure ulcer Recurrent deep vein thrombosis Home Medications latanoprost 0.005 % eye drops 1 drp EACH EYE QHS eye drops 06/11/21 [History Last Taken 08/26/21] pantoprazole 40 mg tablet,delayed release (Protonix) 40 mg PO DAILY GERD 07/19/21 [History Last Taken 08/27/21] tramadol 50 mg tablet 50 mg PO DAILY pain 07/19/21 [History Last Taken Unknown] bumetanide 2 mg tablet 2 mg PO DAILY water pill 08/10/21 [History Last Taken 08/27/21] levothyroxine 25 mcg tablet (Synthroid) 50 mcg PO DAILY thyroid 08/10/21 [History Last Taken Unknown] cefazolin 2 gram/100 mL in dextrose 5 % intravenous solution 100 ml IV .MWF 30 days 08/25/21 [Rx Last Taken Unknown] metoprolol tartrate 25 mg tablet 25 mg PO 1XD blood pressure 08/27/21 [History Last Taken 08/27/21] acetaminophen 325 mg tablet (Tylenol) 650 mg PO Q4H PRN Pain 09/22/21 [History Last Taken Unknown] aluminum-magnesium hydroxide 225 mg-200 mg/5 mL oral suspension 30 ml PO Q4H PRN PRN Heartburn 09/22/21 [History Last Taken Unknown] ascorbic acid (vitamin C) 500 mg tablet (Vitamin C) 500 mg PO DAILY 09/22/21 [History Last Taken Unknown] bisacodyl 10 mg rectal suppository 10 mg [place] DAILY PRN Constipation 09/22/21 [History Last Taken Unknown] cholecalciferol (vitamin D3) 1,250 mcg (50,000 unit) oral wafer 1,250 mcg PO QWEEK 09/22/21 [History Last Taken Unknown] insulin lispro 100 unit/mL subcutaneous cartridge (Humalog U-100 Insulin) 5 unit subcut TID 09/22/21 [History Last Taken Unknown] midodrine 5 mg tablet 1 tab PO MOWEFR 09/22/21 [History Last Taken Unknown] vitamin B complex-vitamin C-folic acid 0.8 mg tablet (Nephro-Gerardo) 1 tab PO DAILY 09/22/21 [History Last Taken Unknown] Allergy/AdvReac Type Severity Reaction Status Date / Time No Known Allergies Allergy Verified 09/22/21 18:03 Surgical History History of left shoulder replacement Social History household members: none housing: detention current occupational status: disabled Smoking Status: Never smoker alcohol intake: never substance use type: does not use Lab / Micro Data Result Diagrams: 09/25/21 07:25 09/25/21 07:25
--- NOTE | 2021-09-23 13:49 | WOUNDNOTE ---
wound photo: left lower leg
--- NOTE | 2021-09-23 13:49 | WOUNDNOTE ---
wound photo: left upper buttock
[2021-09-23] MEDS: Juven (unflavored) Packet 1 PACKET PO (17:22)
[2021-09-23] MEDS: Bumetanide 1 MG/4 ML Vial 2 MG IV (17:28)
[2021-09-23 17:30] LABS: Bedside Glucose 111 mg/dL (74-106)
[2021-09-23] MEDS: Latanoprost 0.005% 1 Bottle 1 DRP EACH EYE (22:44)
[2021-09-23] MEDS: 0.9% Saline Lock 10 ML Syringe IV (22:56)
[2021-09-23 23:31] LABS: Bedside Glucose 152 mg/dL (74-106)
[2021-09-24] VITALS (12 sets, daily range): BP systolic 106–129; BP diastolic 52–71; PULSE 61–84; RESP 14–23; TEMP 36.2–36.6; O2SAT 93–98
[2021-09-24] MEDS: Levothyroxine 50 MCG Tablet PO (06:37)
[2021-09-24 06:59] LABS: Absolute Lymphocyte Count 0.58 X10^3/uL (0.83-4.51); Absolute Neutrophil Count 3.5 X10^3/uL (2.0-7.7); Basophil# 0.01 X10^3/uL; Basophil% 0.2 % (0-1); Eosinophil# 0.08 X10^3/uL; Eosinophils% 1.6 % (0-5); Hematocrit 31.8 % (40-54); Hemoglobin 9.4 g/dL (13.0-16.5); Lymphocyte # 0.58 X10^3/ul (0.83-4.51); Lymphocyte % 11.9 % (19-41); Mean Corp Hgb Conc 29.6 g/dL (32-36); Mean Corpuscular Hgb 27.8 pg (27.0-32.0); Mean Corpuscular Volume 94.1 fL (80-94); Mean Platelet Vol. 8.5 fl (6.2-12.0); Monocyte# 0.69 X10^3/uL; Monocyte% 14.1 % (0-10); NRBC Flagged by Analyzer 0 % (0-5); Neutrophil # 3.49 X10^3/uL (2.7-7.7); Neutrophil % 71.4 % (47-70); POSITIVE DIFFERENTIAL YES; Platelet Count 180 K/mm3 (150-450); RBC Distribution Width CV 17.5 % (11.6-14.6); Red Blood Count 3.38 M/mm3 (4.6-6.2); White Blood Count 4.9 K/mm3 (4.4-11.0)
[2021-09-24 07:37] LABS: Differential Indicated SCAN CRITERIA MET
[2021-09-24 08:06] LABS: Bedside Glucose 85 mg/dL (74-106)
[2021-09-24 08:23] LABS: Albumin, Serum 1.6 g/dL (3.2-5.0); BUN 31 mg/dL (7-18); BUN/Creat Ratio 11.8 RATIO (10-20); Calcium,Total 9.3 mg/dL (8.5-10.1); Chloride 101 mmol/L (98-107); Creatinine, Serum 2.62 mg/dL (0.70-1.30); EST Glomerular Filtration Rate 26 mL/min (>60); Est Glom Filt Rate - Afr Amer 31 mL/min (>60); Estimated Creatinine Clearance 24.01 ml/min; Glucose 87 mg/dL (74-106); Phosphorus 2.9 mg/dL (2.5-4.9); Potassium 3.5 mmol/L (3.5-5.1); Sodium Level 137 mmol/L (136-145)
--- NOTE | 2021-09-24 08:31 | PN.RENAL_ITS ---
Subjective Subjective Resting quietly. No overnight events. Reports shortness of breath has improved. Finishing breakfast. Objective Data Objective Data Vital Signs: Vital Signs Temp Pulse Resp BP Pulse Ox FiO2 97.9 F 72 23 H 129/71 H 95 25 09/24/21 03:50 09/24/21 07:02 09/24/21 05:18 09/24/21 03:50 09/24/21 07:41 09/24/21 05:18 Oxygen Flow Rate (L/min) 4 Oxygen Delivery Method Nasal Cannula Weight: 141.3 kg Body Mass Index (BMI) 50.3 Intake & Output: Intake and Output for Last 24 Hours 09/22/21 09/23/21 09/24/21 23:59 23:59 23:59 Intake Total 450 / 450 Output Total 0 / 0 Balance 450 / 450 0 / 0 Lab / Micro Data Result Diagrams: 09/25/21 07:25 09/25/21 07:25 Labs: Laboratory Results - last 24 hr 09/23/21 11:35: POC Glucose 123 H 09/23/21 17:21: POC Glucose 111 H 09/23/21 22:47: POC Glucose 152 H 09/24/21 05:44: WBC Cancelled, Corrected WBC Cancelled, RBC Cancelled, Hgb Cancelled, Hct Cancelled, MCV Cancelled, MCH Cancelled, MCHC Cancelled, RDW Std Deviation Cancelled, RDW Coeff of Jory Cancelled, Plt Count Cancelled, MPV Cancelled, Immature Gran % (Auto) Cancelled, Neut % (Auto) Cancelled, Lymph % (Auto) Cancelled, [place] % (Auto) Cancelled, Eos % (Auto) Cancelled, Baso % (Auto) Cancelled, Absolute Neuts (auto) Cancelled, Absolute Lymphs (auto) Cancelled, Total Counted Cancelled, Neutrophils % (Manual) Cancelled, Band Neutrophils % Cancelled, Lymphocytes % (Manual) Cancelled, Monocytes % (Manual) Cancelled, Eosinophils % (Manual) Cancelled, Basophils % (Manual) Cancelled, Metamyelocytes % Cancelled, Myelocytes % Cancelled, Promyelocytes % Cancelled, Blast Cells % Cancelled, Plasma Cell % (Manual) Cancelled, Other Cells % Cancelled, Nucleated RBC % Cancelled, Nucleated RBCs/100 WBC Cancelled, Differential Comment Cancelled, Diff Path Review Cancelled, Hypersegmented Neuts Cancelled, Atypical Lymphocytes Cancelled, Reactive Lymphocytes Cancelled, Smudge Cells Cancelled, Toxic Granulation Cancelled, Toxic Vacuolation Cancelled, Dohle Bodies Cancelled, Siri Rods Cancelled, Platelet Estimate Cancelled, Plt Morphology Comment Cancelled, RBC Morphology Cancelled, Polychromasia Cancelled, Hypochromasia Cancelled, Poikilocytosis Cancelled, Basophilic Stippling Cancelled, Anisocytosis Cancelled, Microcytosis Cancelled, Macrocytosis Canc elled, Spherocytes Cancelled, Sickle Cells Cancelled, Target Cells Cancelled, Tear Drop Cells Cancelled, Ovalocytes Cancelled, Stomatocytes Cancelled, Reyna- [place] Bodies Cancelled, Treichlers Cells Cancelled, Bite Cells Cancelled, Crenated Cell Cancelled, Acanthocytes (Spur) Cancelled, Rouleaux Cancelled, Schistocytes Cancelled 09/24/21 05:44: Sodium Cancelled, Potassium Cancelled, Chloride Cancelled, Carbon Dioxide Cancelled, BUN Cancelled, Creatinine Cancelled, Estim Creat Clear Calc Cancelled, Est GFR (MDRD) Af Amer Cancelled, Est GFR (MDRD) Non-Af Cancelled, BUN/Creatinine Ratio Cancelled, Glucose Cancelled, Calcium Cancelled, Phosphorus Cancelled, Albumin Cancelled 09/24/21 06:45: WBC 4.9, RBC 3.38 L, Hgb 9.4 L, Hct 31.8 L, MCV 94.1 H, MCH 27.8, MCHC 29.6 L, RDW Std Deviation 60.0 H, RDW Coeff of Jory 17.5 H, Plt Count 180, MPV 8.5, Immature Gran % (Auto) 0.800, Neut % (Auto) 71.4 H, Lymph % (Auto) 11.9 L, [place] % (Auto) 14.1 H, Eos % (Auto) 1.6, Baso % (Auto) 0.2, Absolute Neuts (auto) 3.5, Absolute Lymphs (auto) 0.58 L, Nucleated RBC % 0 09/24/21 07:47: Sodium 137, Potassium 3.5, Chloride 101, Carbon Dioxide 33.0 H, BUN 31 H, Creatinine 2.62 H, Estim Creat Clear Calc 24.01, Est GFR (MDRD) Af Amer 31 L, Est GFR (MDRD) Non-Af 26 L, BUN/Creatinine Ratio 11.8, Glucose 87, Calcium 9.3, Phosphorus 2.9, Albumin 1.6 L 09/24/21 07:52: POC Glucose 85 Rhythm Strip Rhythm Strip: A-fib Rate: 86 Ectopy: PVC(s) Physical Exam Narrative Const: Alert and oriented to person and place HEENT: Head is normocephalic, oral mucosa is moist Cardio: S1-S2, RRR Respiratory: Lung sounds clear anteriorly diminished breath sounds posterior bases no rhonchi or rales. GI: Abdomen soft, rounded, positive bowel sounds, pitting edema lower abdominal wall Extremities: Giuseppe wraps intact to bilateral lower legs. 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 Patient also developed ATN and because of worsening kidney function and hypervolemia (failed high dose IV diuretics) he was started on hemodialysis, first HD session 08/24/2021. Patient had normal baseline creatinine as of June 2021. He is significantly hypervolemic. His weight was ~160 kg at start of dialysis. Post HD weight 143.4 kg 09/22. Once volume status improves we will have a better idea of renal function/if any renal recovery. - Dialysis today over 4hours BFR 350, 3k and attempt ~4L UF as patient and bp tolerates. Off lopressor, bps seem to have improved. We will continue midodrine pre-HD. We will continue to monitor for renal recovery. -Patient has history of MSSA infection (SHLOMO negative) and has been receiving cefazolin 2gm IV post dialysis with stop date 09/25/2021. To get cefazolin today. -Patient has a history of chronic HFpEF (EF 65%, stage I diastolic dysfunction) and second-degree AV block with A-V dissociation. He was evaluated by cardiology during last hospitalization and beta-blockers were stopped. Since Bps were on lower side, heart rate/rhythm controlled and recently low bps at dialysis limiting fluid removal metoprolol stopped yesterday - receiving wound care to legs and coccyx - anasarca; continue to remove fluid with dialysis as patient and bp tolerates. Continue bumex. CXR reviewed from admission. Venous duplex negative for deep venous thrombosis b/l LE. Bipap at night and currently on nasal canula. Weight is down about 20kg over 1 month.
--- NOTE | 2021-09-24 09:18 | PN.HOSP_ITS ---
Subjective Subjective Follow-up for multiple problems including anasarca, heart failure and ESRD on hemodialysis. Patient is still short of breath even at rest and conversation. Gets worse with the minimal exertion. Diffuse swelling of lower extremities, abdomen and upper extremity although slightly better. Objective Data Objective Data Vital Signs: Vital Signs Temp Pulse Resp BP Pulse Ox FiO2 97.9 F 72 23 H 129/71 H 95 25 09/24/21 03:50 09/24/21 07:02 09/24/21 05:18 09/24/21 03:50 09/24/21 07:41 09/24/21 05:18 Oxygen Flow Rate (L/min) 4 Oxygen Delivery Method Nasal Cannula Weight: 311 lb 8.211 oz Body Mass Index (BMI) 50.3 Intake & Output: Intake and Output for Last 24 Hours 09/22/21 09/23/21 09/24/21 23:59 23:59 23:59 Intake Total 450 / 450 Output Total 0 / 0 Balance 450 / 450 0 / 0 Lab / Micro Data Result Diagrams: 09/24/21 06:45 09/24/21 07:47 Labs: Laboratory Results - last 24 hr 09/23/21 11:35: POC Glucose 123 H 09/23/21 17:21: POC Glucose 111 H 09/23/21 22:47: POC Glucose 152 H 09/24/21 06:45: WBC 4.9, RBC 3.38 L, Hgb 9.4 L, Hct 31.8 L, MCV 94.1 H, MCH 27.8, MCHC 29.6 L, RDW Std Deviation 60.0 H, RDW Coeff of Jory 17.5 H, Plt Count 180, MPV 8.5, Immature Gran % (Auto) 0.800, Neut % (Auto) 71.4 H, Lymph % (Auto) 11.9 L, [place] % (Auto) 14.1 H, Eos % (Auto) 1.6, Baso % (Auto) 0.2, Absolute Neuts (auto) 3.5, Absolute Lymphs (auto) 0.58 L, Nucleated RBC % 0 09/24/21 07:47: Sodium 137, Potassium 3.5, Chloride 101, Carbon Dioxide 33.0 H, BUN 31 H, Creatinine 2.62 H, Estim Creat Clear Calc 24.01, Est GFR (MDRD) Af Amer 31 L, Est GFR (MDRD) Non-Af 26 L, BUN/Creatinine Ratio 11.8, Glucose 87, Calcium 9.3, Phosphorus 2.9, Albumin 1.6 L 09/24/21 07:52: POC Glucose 85 Rhythm Strip Rhythm Strip: A-fib Rate: 86 Ectopy: PVC(s) Physical Exam Narrative Physical exam General: Awake, alert. Sometimes intermittent confusion and disorientation. HEENT: Atraumatic, PERRLA, EOMI, Normocephalic Oral: No Gingival or Mucosal Lesions/ Ulcerations Neck: Supple, No JVD, Negative Carotid Bruits Lungs: Dyspnea at rest. Air entry severely diminished in both lungs. No crepitation/rhonchi Cardiovascular: Regular rate, Regular Rhythm, Normal S1, Normal S2, No murmurs. Intermittent PVCs Abdomen: Bowel Sounds Present, Soft, Non Tender, mild ascites. : No renal angle tenderness. No suprapubic tenderness. Extremities: Bilateral lower extremity edema above knee level 3+ capillary Refill Less than 3 Seconds Skin: Bilateral lymphedema but no skin seepage Musculoskeletal: Diffuse degenerative arthritis of knees and hip. Left shoulder replacement in the past. Muscle strength 3/5 at major joints Neurological: Cranial nerves II-XII grossly intact, DTR 2+/4 Psych/Mental Status: Flat affect. Forgetful/amnesia Assessment & Plan Assessment/Plan (1) Debility: (2) Acute on chronic diastolic congestive heart failure: (3) Hypokalemia: (4) Bilateral pleural effusion: PLAN: Plan 1. Dyspnea due to acute on chronic decompensated HFpEF: Patient is being admitted in PCU. Last 2D echo in June 2021 shows EF 65% with stage I diastolic dysfunction, normal RV function and systolic function. Thereafter he had 2 times SHLOMO for MSSA bacteremia and no evidence of vegetation found. Structurally normal valves. Patient does not meet criteria for acute hypoxic respiratory. Patient on Bumex at home, increased to 2 mg IV twice daily. Heart failure core measures including intake and output, fluid restriction less than 1500 mL, daily weight monitoring, kidney and electrolytes monitoring. Patient on hemodialysis. 09/24: Continue oxygen. Mild decrease in the edema/anasarca. Patient has hemodialysis today. Attempt to remove about 4 L of fluid. 2. Anasarca with small bilateral pleural effusions: Chest x-ray shows small bilateral pleural effusion with compression atelectasis of left lower lobe. Not enough fluid for thoracocentesis. 3. Hypokalemia: Potassium replaced and corrected. 09/24 K3.5. Acceptable range as patient on hemodialysis 4. Chronic hypoxic respiratory failure -Patient wears 2 to 5 L of oxygen at baseline 5 history of GI bleed -Patient had been previously fully anticoagulated with Coumadin, currently not on anticoagulation due to GI bleed history. 6. COPD/obesity hypoventilation syndrome/NILDA: AVAPS while sleeping and naps. Outpatient sleep study 7. 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 On midodrine. Landing Signal Officer was consulted. 09/24 follow-up by hydraulic auto jack mechanic reviewed. 8. Diabetes mellitus type 2: Accu-Chek insulin is covered with Humalog sliding scale. Glucose 123. 09/24 glucose is normal. 9. Hypothyroidism: TSH 8.18. TSH was elevated 9.69 in September 02, 2021. 09/24: Repeat TSH and free T4 tomorrow a.m. Multiple other comorbidities include GERD, hypertension, hypothyroidism, glaucoma, morbid obese, DVT: BMI 50.3 kg/m?. Patient was on warfarin before but discontinued due to GI bleed. Multiple comorbidities complicates the present care and expect difficult and delay recovery DVT prophylaxis: Heparin 5000 subcutaneous every 12 hourly. CODE STATUS -Patient is DNR CCA with no intubation as per discussion the emergency department admission I talked to the third steel pourer Dr. Ball, ID Dr. Gallardo and also talked to patient's POA Alison Blunt, [phone]. Initially had a question regarding blood culture testing but there is no indication of preempting testing for blood culture in the absence of fever, leukocytosis or change in antibiotic treatment. Patient on therapeutic dose of cefazolin 2 g on dialysis days as per ID recommendation therefore getting treatment for MSSA bacteremia. Last blood cultures were negative on 08/14 and 08/15. Total time of the visit including total time spent in counseling or coordination of care, (more than 50% of the total time, spent in obtaining medical information from nurses and other ancillary care providers,explaining to the patient about labs, imaging, diagnosis and management), discussion with teamcenter consultant third steel pourer and hydraulic auto jack mechanic, given clinical update, prognosis to Ms. Alison DEVLIN, review of labs and imaging is 40 minutes. Charges/Coding Multi Select Codes Visit Charges Visit Charges: 66284 Subs Hosp L2
[2021-09-24] MEDS: Cefazolin 2 GM in 0.9% Normal Saline 100 ML IV (10:13)
[2021-09-24] MEDS: Heparin Injection (Vial) 5,000 UNIT/ML VIAL 5000 UNIT SC (10:15)
[2021-09-24] MEDS: Folic Acid/Vitamin B Comp W-C 1 Capsule 1 CAP PO (10:16)
[2021-09-24] MEDS: Pantoprazole Sodium 40 MG Tablet PO (10:16)
[2021-09-24] MEDS: Juven (unflavored) Packet 1 PACKET PO ×2 (10:16→17:42)
[2021-09-24] MEDS: Ascorbic Acid 500 MG Tablet PO (10:16)
[2021-09-24] MEDS: Bumetanide 1 MG/4 ML Vial 2 MG IV ×2 (10:16→17:42)
--- NOTE | 2021-09-24 11:20 | CASEMGMT ---
Discharge Sintering Press Operator Called Tammy at [facility] to update her on patients possible return date. Deedee Dill Discharge Sintering Press Operator
[2021-09-24 11:25] LABS: Bedside Glucose 117 mg/dL (74-106)
--- NOTE | 2021-09-24 16:16 | NURSING ---
Called [facility] as they have not arrived for pt dialysis treatment today. Left voicemail to return call back to this nurse
[2021-09-24 16:40] LABS: Bedside Glucose 140 mg/dL (74-106)
[2021-09-24] MEDS: 0.9% Saline Lock 10 ML Syringe IV (17:42)
[2021-09-24] MEDS: Bumetanide 2 MG Tablet PO (18:10)
[2021-09-24] MEDS: Midodrine HCl 5 MG Tablet PO (18:14)
--- NOTE | 2021-09-24 21:41 | DIALYSIS ---
HD today UF-4100ml tolerated tx well RIJ with good flows vitals stable throughout tx- Report to Alison post tx
[2021-09-25] VITALS (18 sets, daily range): BP systolic 93–137; BP diastolic 59–71; PULSE 79–98; RESP 14–25; TEMP 35.7–37.1; O2SAT 93–100
[2021-09-25] MEDS: Latanoprost 0.005% 1 Bottle 1 DRP EACH EYE ×2 (00:36→22:29)
[2021-09-25] MEDS: Heparin Injection (Vial) 5,000 UNIT/ML VIAL 5000 UNIT SC ×3 (00:36→22:27)
[2021-09-25 00:41] LABS: Bedside Glucose 114 mg/dL (74-106)
[2021-09-25] MEDS: Levothyroxine 50 MCG Tablet PO (06:33)
[2021-09-25 07:01] LABS: Bedside Glucose 90 mg/dL (74-106)
[2021-09-25 08:40] LABS: Absolute Neutrophil Count 4.4 X10^3/uL (2.0-7.7); Basophil# 0.01 X10^3/uL; Basophil% 0.2 % (0-1); Eosinophils% 1.7 % (0-5); Hematocrit 32.6 % (40-54); Hemoglobin 9.4 g/dL (13.0-16.5); Lymphocyte % 8.7 % (19-41); Mean Corp Hgb Conc 28.8 g/dL (32-36); Mean Corpuscular Hgb 27.6 pg (27.0-32.0); Mean Corpuscular Volume 95.6 fL (80-94); Mean Platelet Vol. 8.4 fl (6.2-12.0); Monocyte# 0.65 X10^3/uL; Monocyte% 11.4 % (0-10); NRBC Flagged by Analyzer 0 % (0-5); POSITIVE DIFFERENTIAL YES; Platelet Count 146 K/mm3 (150-450); RBC Distribution Width CV 17.1 % (11.6-14.6); RBC Distribution Width SD 59.8 fl (35.1-43.9); Red Blood Count 3.41 M/mm3 (4.6-6.2); White Blood Count 5.7 K/mm3 (4.4-11.0)
[2021-09-25 08:42] LABS: Differential Indicated SCAN CRITERIA MET
[2021-09-25] MEDS: Pantoprazole Sodium 40 MG Tablet PO (08:54)
[2021-09-25] MEDS: Ergocalciferol 1.25 MG (50, 000 UNIT) Capsule PO (08:54)
[2021-09-25] MEDS: Bumetanide 1 MG/4 ML Vial 2 MG IV ×2 (08:55→22:27)
[2021-09-25] MEDS: Juven (unflavored) Packet 1 PACKET PO ×2 (08:55→22:26)
[2021-09-25] MEDS: Ascorbic Acid 500 MG Tablet PO (08:55)
[2021-09-25] MEDS: Folic Acid/Vitamin B Comp W-C 1 Capsule 1 CAP PO (08:55)
[2021-09-25] MEDS: 0.9% Saline Lock 10 ML Syringe IV ×2 (08:59→22:45)
[2021-09-25 09:05] LABS: Anion Gap 6 (5-15); BUN 33 mg/dL (7-18); BUN/Creat Ratio 15.2 RATIO (10-20); Calcium,Total 9.3 mg/dL (8.5-10.1); Chloride 101 mmol/L (98-107); Creatinine, Serum 2.17 mg/dL (0.70-1.30); EST Glomerular Filtration Rate 32 mL/min (>60); Est Glom Filt Rate - Afr Amer 39 mL/min (>60); Estimated Creatinine Clearance 28.99 ml/min; Glucose 82 mg/dL (74-106); Potassium 3.3 mmol/L (3.5-5.1); Sodium Level 136 mmol/L (136-145); T4 Free Direct 1.13 ng/dL (0.76-1.46); Thyroid Stim Hormone (TSH) 6.14 uIU/mL (0.358-3.74)
[2021-09-25 10:17] LABS: Differential Comment SCANNED
--- NOTE | 2021-09-25 10:51 | PCM.PN.REN ---
Subjective Subjective Following for dialysis dependent GAYE. The patient denies chest pain. He reports improvement in his respiratory distress. However, he does not yet feel back to baseline. There has been no nausea or vomiting. Objective Data Objective Data Vital Signs: Vital Signs Temp Pulse Resp BP Pulse Ox FiO2 97.9 F 85 20 H 93/63 100 25 09/25/21 09:00 09/25/21 09:00 09/25/21 09:00 09/25/21 09:00 09/25/21 09:00 09/25/21 04:02 Oxygen Flow Rate (L/min) 3 Oxygen Delivery Method Nasal Cannula Weight: 141.3 kg Body Mass Index (BMI) 50.3 Intake & Output: Intake and Output for Last 24 Hours 09/23/21 09/24/21 09/25/21 23:59 23:59 23:59 Intake Total 450 / 450 750 / 750 0 / 0 Output Total 4400 / 4400 0 / 0 Balance 450 / 450 -3650 / -3650 0 / 0 Lab / Micro Data Result Diagrams: 09/25/21 07:25 09/25/21 07:25 Labs: Laboratory Results - last 24 hr 09/24/21 11:20: POC Glucose 117 H 09/24/21 16:00: POC Glucose 140 H 09/25/21 00:32: POC Glucose 114 H 09/25/21 06:29: POC Glucose 90 09/25/21 07:25: WBC 5.7, RBC 3.41 L, Hgb 9.4 L, Hct 32.6 L, MCV 95.6 H, MCH 27.6, MCHC 28.8 L, RDW Std Deviation 59.8 H, RDW Coeff of Jory 17.1 H, Plt Count 146 L, MPV 8.4, Immature Gran % (Auto) 1.000 H, Neut % (Auto) 77.0 H, Lymph % (Auto) 8.7 L, [place] % (Auto) 11.4 H, Eos % (Auto) 1.7, Baso % (Auto) 0.2, Absolute Neuts (auto) 4.4, Absolute Lymphs (auto) 0.50 L, Nucleated RBC % 0, Differential Comment SCANNED 09/25/21 07:25: Sodium 136, Potassium 3.3 L, Chloride 101, Carbon Dioxide 29.0, Anion Gap 6, BUN 33 H, Creatinine 2.17 H, Estim Creat Clear Calc 28.99, Est GFR (MDRD) Af Amer 39 L, Est GFR (MDRD) Non-Af 32 L, BUN/Creatinine Ratio 15.2, Glucose 82, Calcium 9.3, TSH 6.14 H, Free T4 1.13 Rhythm Strip Rhythm Strip: A-fib Rate: 86 Ectopy: PVC(s) Physical Exam Narrative Const: Alert and oriented to person and place HEENT: Head is normocephalic, oral mucosa is moist Cardio: S1-S2, RRR Respiratory: Lung sounds clear anteriorly diminished breath sounds posterior bases. GI: Abdomen soft, rounded, positive bowel sounds, pitting edema lower abdominal wall Extremities: Giuseppe wraps intact to bilateral lower legs. 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 Patient also developed ATN and because of worsening kidney function and hypervolemia (failed high dose IV diuretics) he was started on hemodialysis, first HD session 08/24/2021. Patient had normal baseline creatinine as of June 2021. He is significantly hypervolemic. His weight was ~160 kg at start of dialysis. Post HD weight 143.4 kg 09/22. Once volume status improves we will have a better idea of renal function/if any renal recovery. -The patient was dialyzed yesterday, and 3 L of fluid was ultrafiltered. -Because respiratory status has not yet improved to baseline, we will ultrafilter the patient again without diffusive clearance. We will aim for 2 to 3 L of UF. This will be limited by his blood pressure. We will reassess volume status again tomorrow. -Okay to continue Bumex as well.
[2021-09-25 11:30] LABS: Bedside Glucose 101 mg/dL (74-106)
--- NOTE | 2021-09-25 16:02 | PCM.PN.HOSP ---
Subjective Subjective Follow-up for anasarca and heart failure. Patient is still very short of breath, fluid overloaded. Objective Data Objective Data Vital Signs: Vital Signs Temp Pulse Resp BP Pulse Ox FiO2 98.0 F 93 23 H 128/61 H 99 25 09/25/21 12:00 09/25/21 15:00 09/25/21 12:00 09/25/21 12:00 09/25/21 12:00 09/25/21 04:02 Oxygen Flow Rate (L/min) 3 Oxygen Delivery Method Nasal Cannula Weight: 311 lb 8.211 oz Body Mass Index (BMI) 50.3 Intake & Output: Intake and Output for Last 24 Hours 09/23/21 09/24/21 09/25/21 23:59 23:59 23:59 Intake Total 450 / 450 750 / 750 120 / 120 Output Total 4400 / 4400 0 / 0 Balance 450 / 450 -3650 / -3650 120 / 120 Lab / Micro Data Result Diagrams: 09/25/21 07:25 09/25/21 07:25 Labs: Laboratory Results - last 24 hr 09/24/21 16:00: POC Glucose 140 H 09/25/21 00:32: POC Glucose 114 H 09/25/21 06:29: POC Glucose 90 09/25/21 07:25: WBC 5.7, RBC 3.41 L, Hgb 9.4 L, Hct 32.6 L, MCV 95.6 H, MCH 27.6, MCHC 28.8 L, RDW Std Deviation 59.8 H, RDW Coeff of Jory 17.1 H, Plt Count 146 L, MPV 8.4, Immature Gran % (Auto) 1.000 H, Neut % (Auto) 77.0 H, Lymph % (Auto) 8.7 L, [place] % (Auto) 11.4 H, Eos % (Auto) 1.7, Baso % (Auto) 0.2, Absolute Neuts (auto) 4.4, Absolute Lymphs (auto) 0.50 L, Nucleated RBC % 0, Differential Comment SCANNED 09/25/21 07:25: Sodium 136, Potassium 3.3 L, Chloride 101, Carbon Dioxide 29.0, Anion Gap 6, BUN 33 H, Creatinine 2.17 H, Estim Creat Clear Calc 28.99, Est GFR (MDRD) Af Amer 39 L, Est GFR (MDRD) Non-Af 32 L, BUN/Creatinine Ratio 15.2, Glucose 82, Calcium 9.3, TSH 6.14 H, Free T4 1.13 09/25/21 11:09: POC Glucose 101 Rhythm Strip Rhythm Strip: A-fib Rate: 86 Ectopy: PVC(s) Physical Exam Narrative Physical exam General: Awake, alert. Mild lethargy. Morbid obesity BMI 50.3 kg/min risk HEENT: Atraumatic, PERRLA, EOMI, Normocephalic Oral: No Gingival or Mucosal Lesions/ Ulcerations Neck: Supple, No JVD, Negative Carotid Bruits Lungs: Dyspnea at rest. Air entry severely diminished in both lungs. No crepitation/rhonchi Cardiovascular: Regular rate, Regular Rhythm, Normal S1, Normal S2, No murmurs. Intermittent PVCs Abdomen: Bowel Sounds Present, Soft, Non Tender, mild ascites. : No renal angle tenderness. No suprapubic tenderness. Extremities: Bilateral lower extremity edema above knee level 3+ capillary Refill Less than 3 Seconds Skin: Bilateral lymphedema but no skin seepage Musculoskeletal: Diffuse degenerative arthritis of knees and hip. Left shoulder replacement in the past. Muscle strength 3/5 at major joints Neurological: Cranial nerves II-XII grossly intact, DTR 2+/4 Psych/Mental Status: Flat affect. Forgetful/amnesia Assessment & Plan Assessment/Plan (1) Debility: (2) Acute on chronic diastolic congestive heart failure: (3) Hypokalemia: (4) Bilateral pleural effusion: PLAN: Plan 1. Dyspnea due to acute on chronic decompensated HFpEF: Patient is being admitted in PCU. Last 2D echo in June 2021 shows EF 65% with stage I diastolic dysfunction, normal RV function and systolic function. Thereafter he had 2 times SHLOMO for MSSA bacteremia and no evidence of vegetation found. Structurally normal valves. Patient does not meet criteria for acute hypoxic respiratory. Patient on Bumex at home, increased to 2 mg IV twice daily. Heart failure core measures including intake and output, fluid restriction less than 1500 mL, daily weight monitoring, kidney and electrolytes monitoring. Patient on hemodialysis. 09/25: Patient is getting hemodialysis today. Discussed with the director of physician practices. 2. Anasarca with small bilateral pleural effusions: Chest x-ray shows small bilateral pleural effusion with compression atelectasis of left lower lobe. Not enough fluid for thoracocentesis. 3. Hypokalemia: Potassium replaced and corrected. Repeat K3.9. 09/25: K3.3. Potassium getting replaced. 4. Chronic hypoxic respiratory failure -Patient wears 2 to 5 L of oxygen at baseline 5 history of GI bleed -Patient had been previously fully anticoagulated with Coumadin, currently not on anticoagulation due to GI bleed history. 6. COPD/obesity hypoventilation syndrome/NILDA: AVAPS while sleeping and naps. Outpatient sleep study 7. ESRD on hemodialysis Monday and Monday: : Patient had kidney biopsy in [facility] which showed infection related glomerulonephritis[place] [facility] [place]. On midodrine. Grocery Manager was consulted. 8. Diabetes mellitus type 2: Accu-Chek insulin is covered with Humalog sliding scale. Glucose 123. Surgeon: Glucose is controlled. 9. Hypothyroidism: TSH 8.18. . TSH was elevated 9.69 in September 02, 2021. 09/25: TSH 6.14. Free T4 1.13. Levothyroxine dose increased to 75 mcg daily. Multiple other comorbidities include GERD, hypertension, hypothyroidism, glaucoma, morbid obese, DVT: BMI 50.3 kg/m?. Patient was on warfarin before but discontinued due to GI bleed. Multiple comorbidities complicates the present care and expect difficult and delay recovery DVT prophylaxis: Heparin 5000 subcutaneous every 12 hourly. CODE STATUS -Patient is DNR CCA with no intubation as per discussion the emergency department admission Total time of the visit including total time spent in counseling or coordination of care, (more than 50% of the total time, spent in obtaining medical information from nurses and other ancillary care providers,explaining to the patient about labs, imaging, diagnosis and management), discussion with wellness consultant medical laboratory manager and director of physician practices, given clinical update, prognosis to Ms. Alison DEVLIN, review of labs and imaging is 40 minutes. Charges/Coding Visit Charges Inpatient E&M: 20171 Subs Hosp L2
[2021-09-25 16:50] LABS: Bedside Glucose 105 mg/dL (74-106)
--- NOTE | 2021-09-25 19:08 | DIALYSIS ---
Addendum entered by Cruz Fine 09/25/21 20:07: Hemodialysis complete. 2 hour IUF. Net fluid removed = 2200 ml. Patient tolerated HD tx well. Right chest CVC: site benign, biofilm dressing dry and intact. Lumen flushed with NS, filled to volume with Heparin, clamped and capped. Report given to primary RNBree. Original Note: Report from primary RNCarolyn, Patient received potassium supplements. Access: Right chest CVC. Site benign. Biofilm dressing dry and intact.
[2021-09-25] MEDS: Heparin 10,000 UNITS/10 ML Vial 3800 UNITS IV (19:45)
[2021-09-25] MEDS: Potassium Chloride Oral Tablet 20 MEQ 40 MEQ PO (22:26)
--- NOTE | 2021-09-25 22:30 | CPS ---
Pt refuses bipap at this time
[2021-09-25 23:16] LABS: Bedside Glucose 160 mg/dL (74-106)
[2021-09-26] VITALS (12 sets, daily range): BP systolic 94–124; BP diastolic 61–92; PULSE 73–93; RESP 20–24; TEMP 36.3–37; O2SAT 94–98
[2021-09-26] MEDS: Levothyroxine 75 MCG Tablet PO (06:05)
[2021-09-26 06:33] LABS: Absolute Lymphocyte Count 0.55 X10^3/uL (0.83-4.51); Absolute Neutrophil Count 4.3 X10^3/uL (2.0-7.7); Basophil# 0.03 X10^3/uL; Basophil% 0.5 % (0-1); Eosinophil# 0.11 X10^3/uL; Hemoglobin 10.5 g/dL (13.0-16.5); Lymphocyte # 0.55 X10^3/ul (0.83-4.51); Lymphocyte % 9.8 % (19-41); Mean Corp Hgb Conc 29.2 g/dL (32-36); Mean Platelet Vol. 8.6 fl (6.2-12.0); Monocyte# 0.62 X10^3/uL; Monocyte% 11.1 % (0-10); NRBC Flagged by Analyzer 0 % (0-5); Neutrophil # 4.25 X10^3/uL (2.7-7.7); Neutrophil % 75.9 % (47-70); POSITIVE DIFFERENTIAL YES; Platelet Count 165 K/mm3 (150-450); RBC Distribution Width CV 16.9 % (11.6-14.6); RBC Distribution Width SD 59.7 fl (35.1-43.9); Red Blood Count 3.75 M/mm3 (4.6-6.2); White Blood Count 5.6 K/mm3 (4.4-11.0)
[2021-09-26 06:35] LABS: Differential Indicated SCAN CRITERIA MET
[2021-09-26 06:56] LABS: Anion Gap 4 (5-15); Anisocytosis 1+; BUN 56 mg/dL (7-18); BUN/Creat Ratio 19.4 RATIO (10-20); Calcium,Total 9.5 mg/dL (8.5-10.1); Chloride 101 mmol/L (98-107); Creatinine, Serum 2.89 mg/dL (0.70-1.30); EST Glomerular Filtration Rate 23 mL/min (>60); Est Glom Filt Rate - Afr Amer 28 mL/min (>60); Estimated Creatinine Clearance 21.77 ml/min; Glucose 103 mg/dL (74-106); Potassium 4.3 mmol/L (3.5-5.1); Sodium Level 136 mmol/L (136-145)
[2021-09-26 08:41] LABS: Bedside Glucose 107 mg/dL (74-106)
[2021-09-26] MEDS: Juven (unflavored) Packet 1 PACKET PO ×2 (08:43→17:18)
[2021-09-26] MEDS: Bumetanide 1 MG/4 ML Vial 2 MG IV ×2 (09:50→17:18)
[2021-09-26] MEDS: Folic Acid/Vitamin B Comp W-C 1 Capsule 1 CAP PO (09:51)
[2021-09-26] MEDS: Heparin Injection (Vial) 5,000 UNIT/ML VIAL 5000 UNIT SC ×2 (09:51→20:43)
[2021-09-26] MEDS: Pantoprazole Sodium 40 MG Tablet PO (09:51)
[2021-09-26] MEDS: Ascorbic Acid 500 MG Tablet PO (09:52)
[2021-09-26] MEDS: 0.9% Saline Lock 10 ML Syringe IV ×2 (10:04→17:17)
--- NOTE | 2021-09-26 10:16 | PN.RENAL_ITS ---
Subjective Subjective Following for ESRD. The patient still has dyspnea despite 5 L of ultrafiltration with dialysis on 09/24/2021 and isolated UF yesterday. He denies anorexia, nausea, vomiting or chest pain. Objective Data Objective Data Vital Signs: Vital Signs Temp Pulse Resp BP Pulse Ox FiO2 97.3 F L 88 24 H 124/92 H 94 100 09/26/21 04:00 09/26/21 04:00 09/26/21 04:00 09/26/21 04:00 09/26/21 08:14 09/25/21 17:35 Oxygen Flow Rate (L/min) 2 Oxygen Delivery Method Nasal Cannula Weight: 137.665 kg Body Mass Index (BMI) 50.3 Intake & Output: Intake and Output for Last 24 Hours 09/24/21 09/25/21 09/26/21 23:59 23:59 23:59 Intake Total 750 / 750 480 / 480 Output Total 4400 / 4400 2200 / 2200 90 / 90 Balance -3650 / -3650 -1720 / -1720 -90 / -90 Lab / Micro Data Result Diagrams: 09/26/21 06:19 09/26/21 06:19 Labs: Laboratory Results - last 24 hr 09/25/21 07:25: Differential Comment SCANNED 09/25/21 11:09: POC Glucose 101 09/25/21 16:23: POC Glucose 105 09/25/21 22:19: POC Glucose 160 H 09/26/21 06:19: WBC 5.6, RBC 3.75 L, Hgb 10.5 L, Hct 36.0 L, MCV 96.0 H, MCH 28.0, MCHC 29.2 L, RDW Std Deviation 59.7 H, RDW Coeff of Jory 16.9 H, Plt Count 165, MPV 8.6, Immature Gran % (Auto) 0.700, Neut % (Auto) 75.9 H, Lymph % (Auto) 9.8 L, [place] % (Auto) 11.1 H, Eos % (Auto) 2.0, Baso % (Auto) 0.5, Absolute Neuts (auto) 4.3, Absolute Lymphs (auto) 0.55 L, Nucleated RBC % 0, Anisocytosis 1+ 09/26/21 06:19: Sodium 136, Potassium 4.3, Chloride 101, Carbon Dioxide 31.0, Anion Gap 4 L, BUN 56 H, Creatinine 2.89 H, Estim Creat Clear Calc 21.77, Est GFR (MDRD) Af Amer 28 L, Est GFR (MDRD) Non-Af 23 L, BUN/Creatinine Ratio 19.4, Glucose 103, Calcium 9.5 09/26/21 08:32: POC Glucose 107 H Rhythm Strip Rhythm Strip: A-fib Rate: 86 Ectopy: PVC(s) Physical Exam Narrative Const: Alert and oriented to person and place, speaking in short choppy sentences. HEENT: Head is normocephalic, oral mucosa is moist Cardio: Normal S1-S2, RRR Respiratory: Lung sounds clear anteriorly diminished breath sounds posterior bases. GI: Abdomen soft, rounded, positive bowel sounds, pitting edema lower abdominal wall Extremities: Giuseppe wraps intact to bilateral lower legs. 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 Patient also developed ATN and because of worsening kidney function and hypervolemia (failed high dose IV diuretics) he was started on hemodialysis on 08/24/2021. -Continue dialysis on MWF schedule. -Patient had normal baseline creatinine as of June 2021, so we are still monitoring for any recovery of renal function. -He is significantly hypervolemic. His weight was ~160 kg at start of dialysis. Post HD weight 143.4 kg 09/22. Once volume status improves we will have a better idea of renal function/if any renal recovery. -The patient was dialyzed yesterday, and 3 L of fluid was ultrafiltered. We also ultrafiltered him without diffusive clearance yesterday for another 2 L. -There has been no significant improvement of respiratory status. Therefore, there might be other causes of dyspnea as well. We will discuss with hospital medicine service. -Okay to continue Bumex as well.
[2021-09-26 11:36] LABS: Bedside Glucose 127 mg/dL (74-106)
[2021-09-26] MEDS: Acetaminophen 325 MG Tablet 650 MG PO (14:40)
--- NOTE | 2021-09-26 14:48 | PCM.PN.HOSP ---
Subjective Subjective Follow-up on acute on chronic decompensated heart failure preserved EF/anasarca/hypokalemia/GAYE: Patient was seen and examined. He feels mildly improved. Remains on 4 L of oxygen. Denied any chest pain. Discussed with nephrology, dialysis will be tomorrow. Objective Data Objective Data Vital Signs: Vital Signs Temp Pulse Resp BP Pulse Ox FiO2 97.6 F L 93 20 H 107/75 96 100 09/26/21 14:00 09/26/21 14:00 09/26/21 14:00 09/26/21 14:00 09/26/21 14:00 09/25/21 17:35 Oxygen Flow Rate (L/min) 4 Oxygen Delivery Method Nasal Cannula Weight: 137.665 kg Body Mass Index (BMI) 50.3 Intake & Output: Intake and Output for Last 24 Hours 09/24/21 09/25/21 09/26/21 23:59 23:59 23:59 Intake Total 750 / 750 480 / 480 550 / 550 Output Total 4400 / 4400 2200 / 2200 90 / 90 Balance -3650 / -3650 -1720 / -1720 460 / 460 Lab / Micro Data Result Diagrams: 09/26/21 06:19 09/26/21 06:19 Labs: Laboratory Results - last 24 hr 09/25/21 16:23: POC Glucose 105 09/25/21 22:19: POC Glucose 160 H 09/26/21 06:19: WBC 5.6, RBC 3.75 L, Hgb 10.5 L, Hct 36.0 L, MCV 96.0 H, MCH 28.0, MCHC 29.2 L, RDW Std Deviation 59.7 H, RDW Coeff of Jory 16.9 H, Plt Count 165, MPV 8.6, Immature Gran % (Auto) 0.700, Neut % (Auto) 75.9 H, Lymph % (Auto) 9.8 L, [place] % (Auto) 11.1 H, Eos % (Auto) 2.0, Baso % (Auto) 0.5, Absolute Neuts (auto) 4.3, Absolute Lymphs (auto) 0.55 L, Nucleated RBC % 0, Anisocytosis 1+ 09/26/21 06:19: Sodium 136, Potassium 4.3, Chloride 101, Carbon Dioxide 31.0, Anion Gap 4 L, BUN 56 H, Creatinine 2.89 H, Estim Creat Clear Calc 21.77, Est GFR (MDRD) Af Amer 28 L, Est GFR (MDRD) Non-Af 23 L, BUN/Creatinine Ratio 19.4, Glucose 103, Calcium 9.5 09/26/21 08:32: POC Glucose 107 H 09/26/21 11:32: POC Glucose 127 H Rhythm Strip Rhythm Strip: A-fib Rate: 86 Ectopy: PVC(s) Physical Exam Narrative Physical exam: General: Alert, Oriented x3, morbidly obese, on 4 L of oxygen HEENT: Atraumatic Oral: Moist Mucosa Neck: Supple Lungs: Diminished to auscultation Cardiovascular: HS I+II, regular, no murmurs Abdomen: Bowel Sounds Present, Soft, Non Tender Extremities: Bilateral pedal edema +2 Assessment & Plan Assessment/Plan (1) Debility: (2) Acute on chronic diastolic congestive heart failure: (3) Hypokalemia: (4) Bilateral pleural effusion: PLAN: Plan 1. Acute on chronic decompensated HFpEF, EF 65% with stage I diastolic dysfunction/anasarca/bilateral pleural effusions Fluid removal with dialysis; dialysis planned for tomorrow 2. Chronic hypoxic respiratory failure secondary to acute on chronic decompensated HFpEF, EF 65% with stage I diastolic dysfunction Patient is currently on 4 L of oxygen; baseline oxygen is 2 to 5 L of oxygen 3. Hypokalemia, replace, recheck in a.m. 4. 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 Relative hypotension, continue midodrine 6. History of GI bleed, not on anticoagulation 7. COPD/obesity hypoventilation syndrome/NILDA Continue on AVAPS while sleeping and with naps. 8. Diabetes mellitus type 2, blood sugars are fairly controlled, Continue on Humalog insulin sliding scale 9. Hypothyroidism, continue Synthroid 10. DVT PPx- Heparin SC Charges/Coding Visit Charges Inpatient E&M: 56041 Subs Hosp L2
[2021-09-26 16:31] LABS: Bedside Glucose 115 mg/dL (74-106)
[2021-09-26] MEDS: Latanoprost 0.005% 1 Bottle 1 DRP EACH EYE (20:43)
[2021-09-27] VITALS (8 sets, daily range): BP systolic 103–115; BP diastolic 61–67; PULSE 74–84; RESP 14–22; TEMP 36–36.7; O2SAT 96–100
[2021-09-27] MEDS: Levothyroxine 75 MCG Tablet PO (05:38)
[2021-09-27 06:01] LABS: Bedside Glucose 76 mg/dL (74-106)
[2021-09-27 06:31] LABS: Absolute Lymphocyte Count 0.52 X10^3/uL (0.83-4.51); Absolute Neutrophil Count 4.1 X10^3/uL (2.0-7.7); Basophil# 0.02 X10^3/uL; Basophil% 0.4 % (0-1); Eosinophil# 0.23 X10^3/uL; Eosinophils% 4.2 % (0-5); Hematocrit 33.9 % (40-54); Hemoglobin 9.9 g/dL (13.0-16.5); Lymphocyte # 0.52 X10^3/ul (0.83-4.51); Lymphocyte % 9.4 % (19-41); Mean Corp Hgb Conc 29.2 g/dL (32-36); Mean Corpuscular Hgb 27.8 pg (27.0-32.0); Mean Corpuscular Volume 95.2 fL (80-94); Mean Platelet Vol. 8.8 fl (6.2-12.0); Monocyte# 0.64 X10^3/uL; Monocyte% 11.6 % (0-10); NRBC Flagged by Analyzer 0 % (0-5); Neutrophil # 4.07 X10^3/uL (2.7-7.7); Neutrophil % 73.7 % (47-70); POSITIVE DIFFERENTIAL YES; Platelet Count 172 K/mm3 (150-450); RBC Distribution Width CV 16.3 % (11.6-14.6); Red Blood Count 3.56 M/mm3 (4.6-6.2); White Blood Count 5.5 K/mm3 (4.4-11.0)
[2021-09-27 06:35] LABS: Differential Indicated SCAN CRITERIA MET
[2021-09-27 06:51] LABS: Differential Comment SCANNED
[2021-09-27 07:07] LABS: ALB/GLOB Ratio 0.3 RATIO (0.9-2.4); AST(SGOT) 14 U/L (15-37); Alanine Aminotransfer ALT/SGPT < 6 U/L (16-61); Albumin, Serum 1.6 g/dL (3.2-5.0); Alkaline Phosphatase 99 U/L (45-117); Anion Gap 5 (5-15); BUN 75 mg/dL (7-18); Calcium,Total 9.8 mg/dL (8.5-10.1); Chloride 99 mmol/L (98-107); Creatinine, Serum 3.26 mg/dL (0.70-1.30); EST Glomerular Filtration Rate 20 mL/min (>60); Est Glom Filt Rate - Afr Amer 24 mL/min (>60); Globulin 5.4 g/dL (2.2-4.2); Glucose 88 mg/dL (74-106); Magnesium 1.9 mg/dL (1.6-2.6); Potassium 4.5 mmol/L (3.5-5.1); Sodium Level 133 mmol/L (136-145)
[2021-09-27] MEDS: Juven (unflavored) Packet 1 PACKET PO (08:07)
[2021-09-27] MEDS: Acetaminophen 325 MG Tablet 650 MG PO (08:12)
[2021-09-27 08:15] LABS: Bedside Glucose 104 mg/dL (74-106)
--- NOTE | 2021-09-27 08:18 | PN.RENAL_ITS ---
Subjective Subjective Resting quietly, no overnight events. A&O. Denies any complaints. Objective Data Objective Data Vital Signs: Vital Signs Temp Pulse Resp BP Pulse Ox FiO2 96.8 F L 80 20 H 103/61 98 25 09/27/21 05:40 09/27/21 05:40 09/27/21 05:40 09/27/21 05:40 09/27/21 05:40 09/27/21 02:42 Oxygen Flow Rate (L/min) 2 Oxygen Delivery Method Nasal Cannula Weight: 142.2 kg Body Mass Index (BMI) 50.3 Intake & Output: Intake and Output for Last 24 Hours 09/25/21 09/26/21 09/27/21 23:59 23:59 23:59 Intake Total 480 / 480 1200 / 1250 100 / 100 Output Total 2200 / 2200 90 / 90 0 / 0 Balance -1720 / -1720 1110 / 1160 100 / 100 Lab / Micro Data Result Diagrams: 09/27/21 06:00 09/27/21 06:00 Labs: Laboratory Results - last 24 hr 09/26/21 08:32: POC Glucose 107 H 09/26/21 11:32: POC Glucose 127 H 09/26/21 16:26: POC Glucose 115 H 09/27/21 05:48: POC Glucose 76 09/27/21 06:00: WBC 5.5, RBC 3.56 L, Hgb 9.9 L, Hct 33.9 L, MCV 95.2 H, MCH 27.8, MCHC 29.2 L, RDW Std Deviation 58.0 H, RDW Coeff of Jory 16.3 H, Plt Count 172, MPV 8.8, Immature Gran % (Auto) 0.700, Neut % (Auto) 73.7 H, Lymph % (Auto) 9.4 L, [place] % (Auto) 11.6 H, Eos % (Auto) 4.2, Baso % (Auto) 0.4, Absolute Neuts (auto) 4.1, Absolute Lymphs (auto) 0.52 L, Nucleated RBC % 0, Differential Comment SCANNED 09/27/21 06:00: Sodium 133 L, Potassium 4.5, Chloride 99, Carbon Dioxide 29.0, Anion Gap 5, BUN 75 H, Creatinine 3.26 H, Estim Creat Clear Calc 19.30, Est GFR (MDRD) Af Amer 24 L, Est GFR (MDRD) Non-Af 20 L, BUN/Creatinine Ratio 23.0 H, Glucose 88, Calcium 9.8, Magnesium 1.9, Total Bilirubin 0.30, AST 14 L, ALT < 6 L, Alkaline Phosphatase 99, Total Protein 7.0, Albumin 1.6 L, Globulin 5.4 H, Albumin/Globulin Ratio 0.3 L 09/27/21 07:53: POC Glucose 104 Rhythm Strip Rhythm Strip: A-fib Rate: 86 Ectopy: PVC(s) Physical Exam Narrative Const: Alert and oriented to person and place HEENT: Head is normocephalic, oral mucosa is moist Cardio: Normal S1-S2, RRR Respiratory: Lung sounds clear anteriorly diminished breath sounds posterior bases. No rhonchi or rales GI: Abdomen soft, rounded, positive bowel sounds, pitting edema lower abdominal wall Extremities: Giuseppe wraps intact to bilateral lower legs. 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 Patient also developed ATN and because of worsening kidney function and hypervolemia (failed high dose IV diuretics) he was started on hemodialysis on 08/24/2021. -Continue dialysis on MWF schedule. Patient to dialyze today over 3.5 hours and attempt 3 L UF. -Patient had normal baseline creatinine as of June 2021, so we are still monitoring for any recovery of renal function. -He is significantly hypervolemic. His weight was ~160 kg at start of dialysis. Post HD weight 143.4 kg 09/22. Once volume status improves we will have a better idea of renal function/if any renal recovery. -In the hospital the patient was dialyzed Monday with 3 L UF and also received ultrafiltration on Monday with 2 L UF. - currently on 2L NC - BPs improved, not on any antihypertensives - continue midodrine pre-HD -Continue Bumex.
--- NOTE | 2021-09-27 08:56 | CASEMGMT ---
Discharge Cleaning Maid Faxed over update on patient to [facility] with PT/OT notes. Deedee Dill Discharge Cleaning Maid
[2021-09-27] MEDS: Ascorbic Acid 500 MG Tablet PO (09:12)
[2021-09-27] MEDS: Heparin Injection (Vial) 5,000 UNIT/ML VIAL 5000 UNIT SC (09:12)
[2021-09-27] MEDS: Midodrine HCl 5 MG Tablet PO (09:12)
[2021-09-27] MEDS: Folic Acid/Vitamin B Comp W-C 1 Capsule 1 CAP PO (09:12)
[2021-09-27] MEDS: 0.9% Saline Lock 10 ML Syringe IV (09:12)
[2021-09-27] MEDS: Bumetanide 1 MG/4 ML Vial 2 MG IV (09:12)
[2021-09-27] MEDS: Pantoprazole Sodium 40 MG Tablet PO (09:12)
--- NOTE | 2021-09-27 09:50 | CASEMGMT ---
Patient is due for dialysis today. His normal chair time is 1140a. GAGE PALACIOS called [facility] and they can get him in today. MIMI spoke with Tammy with [facility] she will check to see if their transport can pick him up after dialysis. Tammy called SW back and said Their transporter, [facility] won't tow picker patient for part of the trip only all of the trip. MIMI then called [facility] and they will tow picker patient at 11:15 and then when he is done with dialysis they will take him back to [facility]. MIMI notified RN and corporate secretary. MIMI also spoke with [facility] so they are aware patient is coming today. MIMI also called patient's niece and let her know avove. Plan: d/c back to [facility] for skilled level of care. Patient was picked up by [facility], transported to dialysis and then [facility] transported patient from dialysis to [facility]. Leslie Caldera [employer]PA[employer]ER LIANA
--- NOTE | 2021-09-27 10:25 | PCM.TXEXTCAR ---
Diet 09/23/21 00:52 Diet: Cardiac: Calorie-Controlled Food consistency:: Regular Liquid Consistency:: Regular/Thin How many daily calories?: 2000 calorie Routine Orders/Code Status Suppository Type: Dulcolax 10mg Suppository Frequency: Daily PRN O2 Liters per Minute: 3 O2 Frequency: Continuous Keep PO Greater than or Equal to (%): 92 Routine Lab Work: CBC (within 3 days) and - (renal profile within 3 days) Code Status: DNRCC-A Wound(s) coccyx: Wound Type: Pressure Injury Left bowling: Wound Type: open wound (unknown etiology) Dressing Change: AntiMicrobial (Aquacel AG, etc) left upper buttock: Wound Type: Pressure Injury Dressing Change: Mepilex Therapies Weight Bearing: Weight bearing as tolerated Physical Therapy: Eval and Treat Occupational Therapy: Eval and Treat Problem/Diagnosis (1) GAYE (acute kidney injury): Status: Acute (2) Dyspnea: Status: Acute (3) Fluid overload: Status: Acute (4) Acute on chronic diastolic congestive heart failure: Status: Chronic Allergies/Procedures Done in Hospital Allergies No Known Allergies Allergy (Verified 09/22/21 18:03) Procedures: None Type of Care/Length of Stay Estimated LOS: More Than 30 Days Type of Care Needed: Intermediate Rehab Potential: None Prognosis: None Additional Orders/Day of Discharge Day of Discharge: 09/27/21 Dietary and Speech Recommendations Dietitian Recommendations/Changes: continue cardiac, consistent CHO diet; will increase to 2000 calories/day; Kevin BID for wound healing Discharge Plan Admission Admit Date/Time: 09/23/21 10:45 Primary Reason for Your Visit: acute on chronic decompensated heart failure preserved EF/anasarca/hypokale Attending Provider: Aidee Viveros Primary Care Provider: Maury Harley Consulting Providers: Jackelyn Finch ; Rehana King ; Donte Serna Instructions Additional Instructions / Restrictions: Follow-up with nephrology and dialysis as scheduled Noted that patient had relative hypotension in the hospital. He is metoprolol was discontinued. He was started on midodrine. Discharge Orders/Prescriptions Prescriptions: New levothyroxine 75 mcg Tablet 75 mcg PO 0600 30 Days Qty: 30 0RF Kevin (with collagen) 7-7-1.5 gram Powder In Packet 1 packet PO BIDCM Qty: 0 0RF Continued latanoprost 0.005 % drops 1 drp EACH EYE QHS Label Comments: INSTILL 1 DROP INTO BOTH EYES EVERY DAY AT NIGHT tramadol 50 mg Tablet 50 mg PO DAILY pantoprazole [Protonix] 40 mg Tablet,Delayed Release (Dr/Ec) 40 mg PO DAILY bumetanide 2 mg Tablet 2 mg PO DAILY Rx Instructions: Hold on dialysis days acetaminophen [Tylenol] 325 mg Tablet 650 mg PO Q4H PRN (Reason: Pain) midodrine 5 mg tablet 1 tab PO MOWEFR Label Comments: 1 tablet by mouth pre dialysis Rx Instructions: Give prior to dialysis ascorbic acid (vitamin C) [Vitamin C] 500 mg Tablet 500 mg PO DAILY bisacodyl 10 mg Suppository 10 mg [place] DAILY PRN (Reason: Constipation) aluminum-magnesium hydroxide 225-200 mg/5 mL Suspension 30 ml PO Q4H PRN PRN (Reason: Heartburn) Nephro-Gerardo 0.8 mg Tablet 1 tab PO DAILY Humalog U-100 Insulin 100 unit/mL Cartridge 5 unit SUBCUT TID cholecalciferol (vitamin D3) 1,250 mcg (50,000 unit) Wafer 1,250 mcg PO QWEEK Rx Instructions: Every monday Discontinued levothyroxine [Synthroid] 25 mcg Tablet 50 mcg PO DAILY cefazolin in dextrose 5 % 2 gram/100 mL solution 100 ml IV .MWF 30 Days 0RF Rx Instructions: 2gm iv cefazolin to be given with dialysis MWF stop date 09/25/21 dx MSSA bacteremia weekly bmp and cbc, fax to [phone] metoprolol tartrate 25 mg tablet 25 mg PO 1XD Rx Instructions: Give at bedtime Referrals / Follow Up: Maury Harley DO [Primary Care Provider] - Within 2 Weeks Disposition Disposition (needs filled in before D/C Order can be placed[facility]
--- NOTE | 2021-09-27 10:37 | PCM.DC.SUM ---
Providers Date of Admission: 09/23/21 Date of Discharge: 09/27/21 Primary Care Physician: Dr. Muary Harley, Consultations 09/23/21 00:52 Consult: Nephrology Routine Consulting Provider: Rehana King Reason for Consult: ESRD on HD EMERGENT Consult: No MD Notified: Yes Date Notified: 09/23/21 Time Notified: 08:10 Method of Notification: Answering Service 09/23/21 03:45 Consult: Onc/Wound/wired music operator Routine Comment: Reason For Visit: SOB AND EDEMA Diagnosis Discharge Diagnosis (1) GAYE (acute kidney injury): Status: Acute Code(s): N17.9 - Acute kidney failure, unspecified (2) Dyspnea: Status: Acute Code(s): R06.00 - Dyspnea, unspecified (3) Fluid overload: Status: Acute Code(s): E87.70 - Fluid overload, unspecified (4) Acute on chronic diastolic congestive heart failure: Status: Chronic Code(s): I50.33 - Acute on chronic diastolic (congestive) heart failure Medications at Discharge Home Medications latanoprost 0.005 % eye drops 1 drp EACH EYE QHS eye drops 06/11/21 pantoprazole 40 mg tablet,delayed release (Protonix) 40 mg PO DAILY GERD 07/19/21 tramadol 50 mg tablet 50 mg PO DAILY pain 07/19/21 bumetanide 2 mg tablet 2 mg PO DAILY water pill 08/10/21 acetaminophen 325 mg tablet (Tylenol) 650 mg PO Q4H PRN Pain 09/22/21 aluminum-magnesium hydroxide 225 mg-200 mg/5 mL oral suspension 30 ml PO Q4H PRN PRN Heartburn 09/22/21 ascorbic acid (vitamin C) 500 mg tablet (Vitamin C) 500 mg PO DAILY 09/22/21 bisacodyl 10 mg rectal suppository 10 mg [place] DAILY PRN Constipation 09/22/21 cholecalciferol (vitamin D3) 1,250 mcg (50,000 unit) oral wafer 1,250 mcg PO QWEEK 09/22/21 insulin lispro 100 unit/mL subcutaneous cartridge (Humalog U-100 Insulin) 5 unit subcut TID 09/22/21 midodrine 5 mg tablet 1 tab PO MOWEFR 09/22/21 vitamin B complex-vitamin C-folic acid 0.8 mg tablet (Nephro-Gerardo) 1 tab PO DAILY 09/22/21 arginine 7 gram-glutam 7 gram-CaHMB 1.5 [id number]-min oral pwd pkt (Kevin (with collagen)) 1 packet PO BIDCM #0 ea 09/27/21 levothyroxine 75 mcg tablet 75 mcg PO 0600 30 days #30 tabs 09/27/21 Hospital Course Operations None Procedures None Summary of Care Provided Minutes Spent on Discharge: 45 Hospital Course: 70-year-old old male with past medical history of ESRD, with recent initiation of dialysis?M-W-F, history of chronic respiratory failure on 2 to 5 L of oxygen who presented to the hospital with shortness of breath and generalized edema. Patient was at dialysis and was not feeling well. He had increased swelling in his legs abdomen. His blood pressure in the emergency room was relatively low at 107/64. Patient initially was placed on Ventimask and was able to be weaned to 3 L of oxygen. His creatinine was 1.82. Duplex ultrasound lower extremity was negative for acute DVT. Chest x-ray showed vascular congestion with small bilateral pleural effusion. Nephrology was consulted. Patient was managed as acute on chronic decompensated heart failure with preserved EF, EF of 65% with stage I diastolic dysfunction. Patient was continued on his home Bumex. Patient had more fluid removed from dialysis. Had more than 5 L of fluid removed in this hospital stay. He also had hypokalemia that was replaced. Dialysis seem to have helped a bit with his generalized anasarca. Patient was on 3 L of oxygen at discharge. He was managed on BiPAP/AVAPS during this hospital stay. Intermittently patient had refused to wear it at night. Patient will need further evaluation for possible sleep apnea/obesity hypoventilation syndrome with pulmonology in the outpatient. An appointment was made for him. He had relative hypotension this hospital stay and his metoprolol was discontinued. Patient was discharged to dialysis and then to the [facility]. He will be followed with nephrology in the outpatient. He will need repeat blood work within 3 days. Physical Exam Const Constitutional Narrative: Physical exam: General: Alert, Oriented x3, morbidly obese, on 4 L of oxygen, generalized edema HEENT: Atraumatic Oral: Moist Mucosa Neck: Supple Lungs: Diminished to auscultation Cardiovascular: HS I+II, regular, no murmurs, right-sided dialysis catheter Abdomen: Bowel Sounds Present, Soft, Non Tender Extremities: Bilateral pedal edema +2-3, Giuseppe wraps to the lower extremities Weight / BMI Weight Weight: 142.2 kg Body Mass Index (BMI) 50.3 ABG / Lab / Microbiology Data Result Diagrams: 09/27/21 06:00 09/27/21 06:00 Laboratory: Laboratory Results - last 24 hr 09/26/21 11:32: POC Glucose 127 H 09/26/21 16:26: POC Glucose 115 H 09/27/21 05:48: POC Glucose 76 09/27/21 06:00: WBC 5.5, RBC 3.56 L, Hgb 9.9 L, Hct 33.9 L, MCV 95.2 H, MCH 27.8, MCHC 29.2 L, RDW Std Deviation 58.0 H, RDW Coeff of Jory 16.3 H, Plt Count 172, MPV 8.8, Immature Gran % (Auto) 0.700, Neut % (Auto) 73.7 H, Lymph % (Auto) 9.4 L, [place] % (Auto) 11.6 H, Eos % (Auto) 4.2, Baso % (Auto) 0.4, Absolute Neuts (auto) 4.1, Absolute Lymphs (auto) 0.52 L, Nucleated RBC % 0, Differential Comment SCANNED 09/27/21 06:00: Sodium 133 L, Potassium 4.5, Chloride 99, Carbon Dioxide 29.0, Anion Gap 5, BUN 75 H, Creatinine 3.26 H, Estim Creat Clear Calc 19.30, Est GFR (MDRD) Af Amer 24 L, Est GFR (MDRD) Non-Af 20 L, BUN/Creatinine Ratio 23.0 H, Glucose 88, Calcium 9.8, Magnesium 1.9, Total Bilirubin 0.30, AST 14 L, ALT < 6 L, Alkaline Phosphatase 99, Total Protein 7.0, Albumin 1.6 L, Globulin 5.4 H, Albumin/Globulin Ratio 0.3 L 09/27/21 07:53: POC Glucose 104 D/C Instructions Discharge Diet: Low fat / Low cholesterol, 6 Cup Fluid Restriction and 2000 mg Sodium Diet Discharge Activity: Return to Normal Activity Weight Bearing Status: Weight bearing as tolerated Meaningful Use Info Meaningful Use Diagnoses (Choose all that apply): None applicable and CHF CHF GIUSEPPE/ARB ordered at discharge?: No Reason GIUSEPPE/ARB not ordered?: Worsening renal disease Documented LVEF (%): 65 Discharge Plan Admission Admit Date/Time: 09/23/21 10:45 Primary Reason for Your Visit: acute on chronic decompensated heart failure preserved EF/anasarca/hypokale Attending Provider: Aidee Viveros Primary Care Provider: Maury Harley Consulting Providers: Jackelyn Finch ; Rehana King ; Donte Serna Instructions Additional Instructions / Restrictions: Follow-up with nephrology and dialysis as scheduled Noted that patient had relative hypotension in the hospital. He is metoprolol was discontinued. He was started on midodrine. Patient has to use his Bipap/Cpap at night and for naps. Discharge Orders/Prescriptions Prescriptions: New levothyroxine 75 mcg Tablet 75 mcg PO 0600 30 Days Qty: 30 0RF Kevin (with collagen) 7-7-1.5 gram Powder In Packet 1 packet PO BIDCM Qty: 0 0RF Continued latanoprost 0.005 % drops 1 drp EACH EYE QHS Label Comments: INSTILL 1 DROP INTO BOTH EYES EVERY DAY AT NIGHT tramadol 50 mg Tablet 50 mg PO DAILY pantoprazole [Protonix] 40 mg Tablet,Delayed Release (Dr/Ec) 40 mg PO DAILY bumetanide 2 mg Tablet 2 mg PO DAILY Rx Instructions: Hold on dialysis days acetaminophen [Tylenol] 325 mg Tablet 650 mg PO Q4H PRN (Reason: Pain) midodrine 5 mg tablet 1 tab PO MOWEFR Label Comments: 1 tablet by mouth pre dialysis Rx Instructions: Give prior to dialysis ascorbic acid (vitamin C) [Vitamin C] 500 mg Tablet 500 mg PO DAILY bisacodyl 10 mg Suppository 10 mg [place] DAILY PRN (Reason: Constipation) aluminum-magnesium hydroxide 225-200 mg/5 mL Suspension 30 ml PO Q4H PRN PRN (Reason: Heartburn) Nephro-Gerardo 0.8 mg Tablet 1 tab PO DAILY Humalog U-100 Insulin 100 unit/mL Cartridge 5 unit SUBCUT TID cholecalciferol (vitamin D3) 1,250 mcg (50,000 unit) Wafer 1,250 mcg PO QWEEK Rx Instructions: Every monday Discontinued levothyroxine [Synthroid] 25 mcg Tablet 50 mcg PO DAILY cefazolin in dextrose 5 % 2 gram/100 mL solution 100 ml IV .MWF 30 Days 0RF Rx Instructions: 2gm iv cefazolin to be given with dialysis MWF stop date 09/25/21 dx MSSA bacteremia weekly bmp and cbc, fax to [phone] metoprolol tartrate 25 mg tablet 25 mg PO 1XD Rx Instructions: Give at bedtime Referrals / Follow Up: Maury Harley DO [Primary Care Provider] - Within 2 Weeks LizzyFlorencio palomares MD [STAFF PHYSICIAN] - See Referral Note (Tomorrow) Jc Mahajan DO [STAFF PHYSICIAN] - 10/15/21 10:15 am Disposition Disposition (needs filled in before D/C Order can be placed): [facility] Charges/Coding Visit Charges Inpatient E&M: 13223 Disch Hosp
--- NOTE | 2021-09-27 11:36 | WOUNDNOTE ---
wound photo: left lower leg
== END 2021-09-27 11:17 | disposition skilled nursing facility (03) | DRG 291 ==
LOC: ED 23:58 → PCU 09-23 00:26
PROVIDERS: Internal Medicine; Nurse Practitioner Adult Health; Admitting Provider Internal Medicine; Emergency Provider Emergency Medicine; PCP Family Medicine; Visit Provider Internal Medicine
DX: I13.2 Hypertensive heart and chronic kidney disease with heart failure and with stage 5 chronic kidney disease, or end stage renal disease (principal); I50.33 Acute on chronic diastolic (congestive) heart failure; N17.0 Acute kidney failure with tubular necrosis; N18.6 End stage renal disease; R78.81 Bacteremia; E66.2 Morbid (severe) obesity with alveolar hypoventilation; J96.11 Chronic respiratory failure with hypoxia; N17.9 Acute kidney failure, unspecified; Z68.43 Body mass index [BMI] 50.0-59.9, adult; E10.39 Type 1 diabetes mellitus with other diabetic ophthalmic complication; E10.22 Type 1 diabetes mellitus with diabetic chronic kidney disease; B95.61 Methicillin susceptible Staphylococcus aureus infection as the cause of diseases classified elsewhere; J44.9 Chronic obstructive pulmonary disease, unspecified; Z99.2 Dependence on renal dialysis; Z79.4 Long term (current) use of insulin; D64.9 Anemia, unspecified; E87.6 Hypokalemia; E03.9 Hypothyroidism, unspecified; I89.0 Lymphedema, not elsewhere classified; M17.0 Bilateral primary osteoarthritis of knee; E55.9 Vitamin D deficiency, unspecified; E87.70 Fluid overload, unspecified; R19.00 Intra-abdominal and pelvic swelling, mass and lump, unspecified site; Z51.5 Encounter for palliative care; Z66 Do not resuscitate; H40.9 Unspecified glaucoma; I49.3 Ventricular premature depolarization; R19.04 Left lower quadrant abdominal swelling, mass and lump; Z86.718 Personal history of other venous thrombosis and embolism
CPT/HCPCS: 36415; 71045; 80048; 80053; 80069; 82962; 83735; 84100; 84439; 84443; 84484; 85025; 85610; 90937; 93005; 93970; 94002; 94003; 94762; 97110; 97162; 97166; 97530; 97802; 99251; 99285; J7030; J7040; A4216; G0257; G0463

== ENCOUNTER → 2021-09-30 | Outpatient (REF) | payer MEDICARE, OTHER, SELFPAY ==
[2021-09-30 08:34] LABS: Hematocrit 37.3 % (40-54); Hemoglobin 10.7 g/dL (13.0-16.5); Mean Corp Hgb Conc 28.7 g/dL (32-36); Mean Corpuscular Hgb 27.7 pg (27.0-32.0); Mean Corpuscular Volume 96.6 fL (80-94); Mean Platelet Vol. 8.9 fl (6.2-12.0); Platelet Count 226 K/mm3 (150-450); RBC Distribution Width CV 16.6 % (11.6-14.6); RBC Distribution Width SD 59.6 fl (35.1-43.9); Red Blood Count 3.86 M/mm3 (4.6-6.2); White Blood Count 6.3 K/mm3 (4.4-11.0)
[2021-09-30 08:48] LABS: Anion Gap 4 (5-15); BUN 34 mg/dL (7-18); BUN/Creat Ratio 14.5 RATIO (10-20); Calcium,Total 9.6 mg/dL (8.5-10.1); Chloride 100 mmol/L (98-107); Creatinine, Serum 2.34 mg/dL (0.70-1.30); EST Glomerular Filtration Rate 29 mL/min (>60); Est Glom Filt Rate - Afr Amer 36 mL/min (>60); Glucose 96 mg/dL (74-106); Potassium 3.6 mmol/L (3.5-5.1); Sodium Level 136 mmol/L (136-145)
== END | disposition home or self-care (01) ==
LOC: OLS.SW500 04:00
PROVIDERS: PCP Family Medicine; Visit Provider Internal Medicine
DX: Z79.899 Other long term (current) drug therapy (principal)
CPT/HCPCS: 36415; 80048; 85027

== ENCOUNTER → 2021-10-07 | Outpatient (REF) | payer MEDICARE, OTHER, SELFPAY ==
[2021-10-07 08:28] LABS: Hematocrit 37.8 % (40-54); Hemoglobin 11.1 g/dL (13.0-16.5); Mean Corp Hgb Conc 29.4 g/dL (32-36); Mean Corpuscular Hgb 27.8 pg (27.0-32.0); Mean Corpuscular Volume 94.7 fL (80-94); Mean Platelet Vol. 8.6 fl (6.2-12.0); Platelet Count 253 K/mm3 (150-450); RBC Distribution Width SD 55.8 fl (35.1-43.9); Red Blood Count 3.99 M/mm3 (4.6-6.2); White Blood Count 7.9 K/mm3 (4.4-11.0)
[2021-10-07 08:56] LABS: Anion Gap 7 (5-15); BUN 31 mg/dL (7-18); BUN/Creat Ratio 11.2 RATIO (10-20); Calcium,Total 9.7 mg/dL (8.5-10.1); Chloride 97 mmol/L (98-107); Creatinine, Serum 2.78 mg/dL (0.70-1.30); EST Glomerular Filtration Rate 24 mL/min (>60); Est Glom Filt Rate - Afr Amer 29 mL/min (>60); Glucose 97 mg/dL (74-106); Potassium 4.2 mmol/L (3.5-5.1); Sodium Level 133 mmol/L (136-145)
== END | disposition home or self-care (01) ==
LOC: OLS.SW500 04:00
PROVIDERS: PCP Family Medicine; Visit Provider Internal Medicine
DX: J44.9 Chronic obstructive pulmonary disease, unspecified (principal); D64.9 Anemia, unspecified
CPT/HCPCS: 36415; 80048; 85027

== ENCOUNTER → 2021-10-14 | Outpatient (REF) | payer SELFPAY ==
[2021-10-14 08:30] LABS: Hemoglobin 12.5 g/dL (13.0-16.5); Mean Corp Hgb Conc 30.5 g/dL (32-36); Mean Corpuscular Hgb 27.9 pg (27.0-32.0); Mean Corpuscular Volume 91.5 fL (80-94); Platelet Count 273 K/mm3 (150-450); RBC Distribution Width CV 15.3 % (11.6-14.6); RBC Distribution Width SD 51.3 fl (35.1-43.9); Red Blood Count 4.48 M/mm3 (4.6-6.2); White Blood Count 7.8 K/mm3 (4.4-11.0)
[2021-10-14 08:59] LABS: Anion Gap 9 (5-15); BUN 28 mg/dL (7-18); Calcium,Total 10.1 mg/dL (8.5-10.1); Chloride 95 mmol/L (98-107); Creatinine, Serum 3.11 mg/dL (0.70-1.30); EST Glomerular Filtration Rate 21 mL/min (>60); Est Glom Filt Rate - Afr Amer 26 mL/min (>60); Glucose 88 mg/dL (74-106); Potassium 3.3 mmol/L (3.5-5.1); Sodium Level 133 mmol/L (136-145)
== END | disposition home or self-care (01) ==
LOC: OLS.SW500 05:00
PROVIDERS: PCP Family Medicine; Referring Provider Internal Medicine; Visit Provider Internal Medicine
DX: Z79.899 Other long term (current) drug therapy (principal)
CPT/HCPCS: 36415; 80048; 85027

== ENCOUNTER → 2021-10-21 | Outpatient (REF) | payer SELFPAY ==
[2021-10-21 09:45] LABS: Mean Corp Hgb Conc 30.6 g/dL (32-36); Mean Corpuscular Hgb 27.8 pg (27.0-32.0); Mean Corpuscular Volume 90.9 fL (80-94); Mean Platelet Vol. 9.1 fl (6.2-12.0); Platelet Count 235 K/mm3 (150-450); RBC Distribution Width CV 15.2 % (11.6-14.6); RBC Distribution Width SD 50.6 fl (35.1-43.9); Red Blood Count 3.96 M/mm3 (4.6-6.2); White Blood Count 7.3 K/mm3 (4.4-11.0)
[2021-10-21 09:57] LABS: Anion Gap 6 (5-15); BUN 35 mg/dL (7-18); BUN/Creat Ratio 12.1 RATIO (10-20); Calcium,Total 9.7 mg/dL (8.5-10.1); Chloride 97 mmol/L (98-107); Creatinine, Serum 2.89 mg/dL (0.70-1.30); EST Glomerular Filtration Rate 23 mL/min (>60); Est Glom Filt Rate - Afr Amer 28 mL/min (>60); Glucose 85 mg/dL (74-106); Potassium 3.8 mmol/L (3.5-5.1); Sodium Level 135 mmol/L (136-145)
== END | disposition home or self-care (01) ==
LOC: OLS.SW500 00:40
PROVIDERS: PCP Family Medicine; Visit Provider Internal Medicine
DX: Z79.899 Other long term (current) drug therapy (principal)
CPT/HCPCS: 36415; 80048; 85027

== ENCOUNTER → 2021-10-28 | Outpatient (REF) | payer MEDICARE, OTHER, SELFPAY ==
[2021-10-28 07:23] LABS: Hemoglobin 11.4 g/dL (13.0-16.5); Mean Corpuscular Hgb 27.5 pg (27.0-32.0); Mean Corpuscular Volume 91.8 fL (80-94); Mean Platelet Vol. 8.9 fl (6.2-12.0); Platelet Count 274 K/mm3 (150-450); RBC Distribution Width CV 15.3 % (11.6-14.6); RBC Distribution Width SD 51.3 fl (35.1-43.9); Red Blood Count 4.14 M/mm3 (4.6-6.2); White Blood Count 8.4 K/mm3 (4.4-11.0)
[2021-10-28 07:36] LABS: Anion Gap 7 (5-15); BUN 24 mg/dL (7-18); BUN/Creat Ratio 8.3 RATIO (10-20); Calcium,Total 10.2 mg/dL (8.5-10.1); Chloride 95 mmol/L (98-107); EST Glomerular Filtration Rate 23 mL/min (>60); Est Glom Filt Rate - Afr Amer 28 mL/min (>60); Glucose 97 mg/dL (74-106); Potassium 3.9 mmol/L (3.5-5.1); Sodium Level 134 mmol/L (136-145)
== END | disposition home or self-care (01) ==
LOC: OLS.SW500 05:00
PROVIDERS: PCP Family Medicine; Referring Provider Internal Medicine; Visit Provider Internal Medicine
DX: Z79.899 Other long term (current) drug therapy (principal)
CPT/HCPCS: 36415; 80048; 85027

== ENCOUNTER → 2021-11-04 | Outpatient (REF) | payer MEDICARE, OTHER, SELFPAY ==
[2021-11-04 08:13] LABS: Hematocrit 40.3 % (40-54); Hemoglobin 12.7 g/dL (13.0-16.5); Mean Corp Hgb Conc 31.5 g/dL (32-36); Mean Corpuscular Hgb 28.3 pg (27.0-32.0); Mean Corpuscular Volume 89.8 fL (80-94); Mean Platelet Vol. 8.9 fl (6.2-12.0); Platelet Count 277 K/mm3 (150-450); RBC Distribution Width CV 15.5 % (11.6-14.6); RBC Distribution Width SD 50.4 fl (35.1-43.9); Red Blood Count 4.49 M/mm3 (4.6-6.2); White Blood Count 19.1 K/mm3 (4.4-11.0)
[2021-11-04 08:23] LABS: Anion Gap 9 (5-15); BUN 35 mg/dL (7-18); BUN/Creat Ratio 10.1 RATIO (10-20); Calcium,Total 10.4 mg/dL (8.5-10.1); Chloride 97 mmol/L (98-107); Creatinine, Serum 3.45 mg/dL (0.70-1.30); EST Glomerular Filtration Rate 19 mL/min (>60); Est Glom Filt Rate - Afr Amer 23 mL/min (>60); Glucose 134 mg/dL (74-106); Potassium 4.9 mmol/L (3.5-5.1); Sodium Level 133 mmol/L (136-145)
== END | disposition home or self-care (01) ==
LOC: OLS.SW500 06:53
PROVIDERS: PCP Family Medicine; Visit Provider Internal Medicine
DX: Z79.899 Other long term (current) drug therapy (principal)
CPT/HCPCS: 36415; 80048; 85027

== ENCOUNTER → 2021-11-07 | Outpatient (REF) | payer MEDICARE, OTHER, SELFPAY ==
[2021-11-07 15:04] LABS: Absolute Lymphocyte Count 0.77 X10^3/uL (0.83-4.51); Absolute Neutrophil Count 18.1 X10^3/uL (2.0-7.7); Basophil# 0.04 X10^3/uL; Basophil% 0.2 % (0-1); Eosinophil# 0.04 X10^3/uL; Eosinophils% 0.2 % (0-5); Hematocrit 36.8 % (40-54); Hemoglobin 11.4 g/dL (13.0-16.5); Lymphocyte # 0.77 X10^3/ul (0.83-4.51); Lymphocyte % 3.6 % (19-41); Mean Corpuscular Hgb 27.8 pg (27.0-32.0); Mean Corpuscular Volume 89.8 fL (80-94); Monocyte# 2.04 X10^3/uL; Monocyte% 9.5 % (0-10); NRBC Flagged by Analyzer 0 % (0-5); Neutrophil # 18.14 X10^3/uL (2.7-7.7); Neutrophil % 84.7 % (47-70); POSITIVE DIFFERENTIAL YES; Platelet Count 304 K/mm3 (150-450); RBC Distribution Width CV 15.4 % (11.6-14.6); RBC Distribution Width SD 50.6 fl (35.1-43.9); White Blood Count 21.4 K/mm3 (4.4-11.0)
[2021-11-07 15:05] LABS: Differential Indicated SCAN CRITERIA MET
[2021-11-07 15:07] LABS: Color, Urine Yellow (Yellow); Glucose, Dipstick Normal (Normal); Ketone-Dipstick 5 mg/dl (Negative); Leukocyte Esterase-Dipstick 500 /ul (Negative); Nitrite-Dipstick Negative (Negative); Occult Blood-Urine 250 /ul (Negative); Protein-Dipstick 100 mg/dl (Negative); Urine Bilirubin Dipstick Negative (Negative); Urine Clarity Cloudy (Clear); Urine Urobilinogen Normal (Normal); Urine pH 6.5 (5.0 - 8.0)
[2021-11-07 15:23] LABS: Differential Comment SCANNED
[2021-11-07 15:50] LABS: Anion Gap 7 (5-15); BUN 70 mg/dL (7-18); BUN/Creat Ratio 14.2 RATIO (10-20); Calcium,Total 10.6 mg/dL (8.5-10.1); Chloride 94 mmol/L (98-107); Creatinine, Serum 4.92 mg/dL (0.70-1.30); EST Glomerular Filtration Rate 13 mL/min (>60); Est Glom Filt Rate - Afr Amer 15 mL/min (>60); Glucose 151 mg/dL (74-106); Potassium 6.6 mmol/L (3.5-5.1); Sodium Level 128 mmol/L (136-145)
[2021-11-08 13:17] LABS: Pathologist Review Reviewed
== END | disposition home or self-care (01) ==
LOC: OLS.SW500 14:30
PROVIDERS: PCP Family Medicine; Visit Provider Internal Medicine
DX: R41.82 Altered mental status, unspecified (principal)
CPT/HCPCS: 36415; 80048; 81002; 85025; 87070; 87077; 87086; 87088; 87186; 87205

== ENCOUNTER → 2021-11-10 | Outpatient (REF) | payer MEDICARE, OTHER, SELFPAY ==
[2021-11-10 10:40] LABS: Anion Gap 10 (5-15); BUN 74 mg/dL (7-18); BUN/Creat Ratio 13.3 RATIO (10-20); Calcium,Total 10.1 mg/dL (8.5-10.1); Chloride 94 mmol/L (98-107); Creatinine, Serum 5.55 mg/dL (0.70-1.30); EST Glomerular Filtration Rate 11 mL/min (>60); Est Glom Filt Rate - Afr Amer 13 mL/min (>60); Glucose 98 mg/dL (74-106); Potassium 5.1 mmol/L (3.5-5.1); Sodium Level 129 mmol/L (136-145)
== END ==
LOC: OLS.SW500 04:00
PROVIDERS: PCP Family Medicine; Referring Provider Internal Medicine; Visit Provider Internal Medicine
DX: J44.9 Chronic obstructive pulmonary disease, unspecified (principal)
CPT/HCPCS: 36415; 80048

== ENCOUNTER → 2021-11-11 | Outpatient (REF) | payer MEDICARE, OTHER, SELFPAY ==
[2021-11-11 09:21] LABS: Hematocrit 35.3 % (40-54); Hemoglobin 11.3 g/dL (13.0-16.5); Mean Corpuscular Hgb 27.9 pg (27.0-32.0); Mean Corpuscular Volume 87.2 fL (80-94); Mean Platelet Vol. 9.7 fl (6.2-12.0); Platelet Count 232 K/mm3 (150-450); RBC Distribution Width CV 15.4 % (11.6-14.6); Red Blood Count 4.05 M/mm3 (4.6-6.2); White Blood Count 14.7 K/mm3 (4.4-11.0)
[2021-11-11 09:42] LABS: Anion Gap 10 (5-15); BUN 69 mg/dL (7-18); BUN/Creat Ratio 13.8 RATIO (10-20); Calcium,Total 10.3 mg/dL (8.5-10.1); Chloride 94 mmol/L (98-107); Creatinine, Serum 4.99 mg/dL (0.70-1.30); EST Glomerular Filtration Rate 12 mL/min (>60); Est Glom Filt Rate - Afr Amer 15 mL/min (>60); Glucose 100 mg/dL (74-106); Potassium 4.7 mmol/L (3.5-5.1); Sodium Level 130 mmol/L (136-145)
== END ==
LOC: OLS.SW500 05:00
PROVIDERS: PCP Family Medicine; Visit Provider Internal Medicine
DX: Z79.899 Other long term (current) drug therapy (principal)
CPT/HCPCS: 36415; 80048; 85027